=== PATIENT | female | born 1965 | race Caucasian/White ===

== ENCOUNTER 2018-02-22 19:04 | Emergency (ER) | payer MEDICAID, SELFPAY ==
[2018-02-22 19:09] VITALS: BP 146/76; PULSE 88; RESP 20; TEMP 37; O2SAT 99
--- NOTE | 2018-02-22 20:04 | DI.RAD_ITS ---
SYMPTOM/DIAGNOSIS: WRIST PAIN LEFT WRIST: Four views were obtained. There are mild degenerative changes of the carpus. No evidence of acute fracture. Carpal alignment appears within normal limits.
--- NOTE | 2018-02-22 21:12 | ED.GENADUL_ITS ---
Discharge Plan Disposition Patient Disposition: HOME Condition: Stable Discharge Details Chief Complaint: Orthopedic Clinical Impression: De Quervain's tenosynovitis, left Primary Care Provider: Yumiko Tavarez ED Provider: Vasu Juarez Home Meds and New Rx's Prescriptions: No Action folic acid 1 MG tablet 1 mg PO DAILY Qty: 90 RF: 3 cyanocobalamin (vitamin B-12) [Vitamin B-12] 1,000 MCG tablet 1,500 mcg PO DAILY RF: 0 ergocalciferol (vitamin D2) [Vitamin D2] 50,000 UNIT capsule 50,000 unit PO WEEKLY RF: 0 zolpidem [Ambien] 10 MG tablet 10 mg PO DAILY RF: 0 calcium carbonate 500 MG tablet 1,000 mg PO BID RF: 0 oxycodone-acetaminophen [Percocet] 1 EACH tablet 1 tab-cap PO Q6H PRN RF: 0 carbidopa-levodopa 1 EACH tablet,disintegrating 2 tab-cap PO TID RF: 0 denosumab [Prolia] 60 MG/1 ML syringe 60 mg SQ Q 6 MO RF: 0 naloxone [Narcan] 4 MG spray,non-aerosol 4 mg NS PRN Qty: 2 RF: 0 methocarbamol 750 mg Tablet 1 tab PO BID RF: 0 Discharge Instructions Instructions: De Quervain Disease (ED) Additional Instructions: Continue to use your pain medication as prescribed by your primary care provider, apply ice to the affected wrist, and wear wrist splint over the next 2 weeks. If not improving over the next 2 weeks please follow-up with your primary care provider for reassessment Referrals: Yumiko Tavarez [Primary Care Provider] - (As needed for reassessment) Discharge Data Discharge Date/Time-TO BE ENTERED AT DEPARTURE: 02/22/18 21:44 Medical Decision Making Patient presenting to the emergency department with chief complaint of left wrist pain. Patient denies any injury or trauma but states worsening wrist pain over the last 2 weeks. Patient does state it seems to be aggravated by activity and slightly improves with rest. Physical exam shows anatomical snuffbox tenderness and positive Lydia's test but no positive Tinel or Phalen's test. Concern for de Quervain's tenosynovitis but patient is very anxious and is requesting an x-ray which given no previous x-rays performed in the past not feel this is completely unreasonable but more concern for tendinopathy which was explained to patient. Review of radiological imaging shows no acute findings so patient was placed in a thumb spica splint and encouraged to continue to use her normally prescribed pain medication along with acetaminophen for any discomfort and if not improving over the next couple weeks to follow-up with her primary care provider for reassessment. After discussion of diagnosis and plan of care patient has no further needs, questions, or concerns and states clear understanding to return to the emergency department for any worsening symptoms. HPI General Mode of arrival: ambulatory . Date/Time Provider Initiated Documentation: 02/22/18 19:12 . Limitations to Documentation: no limitations . Information obtained by: patient and RN notes reviewed . History of Present Illness 53 year old F presents to the emergency department with the chief complaint of left wrist pain, described as moderate, with intensity rated at 7. Quality is described as aching, and is localized to the left and upper extremity. Patient reports no radiation. Patient started experiencing this week(s) (2) and it has been constant. No relieving factors improve symptom(s), Movement worsens symptoms . Patient notes no other symptoms.. Patient did receive the following treatments prior to arrival, none Related Data Home Medications Medication Instructions Recorded Confirmed folic acid 1 mg PO DAILY #90 tab-cap 09/01/15 cyanocobalamin (vitamin B-12) 1,500 mcg PO DAILY 11/28/16 09/09/17 [Vitamin B-12] ergocalciferol (vitamin D2) 50,000 unit PO WEEKLY 11/28/16 09/09/17 [Vitamin D2] zolpidem [Ambien] 10 mg PO DAILY tab-cap 11/28/16 09/09/17 calcium carbonate 1,000 mg PO BID 05/18/17 09/09/17 carbidopa-levodopa 2 tab-cap PO TID tab-cap 05/18/17 09/09/17 denosumab [Prolia] 60 mg SQ Q 6 MO 05/18/17 09/09/17 naloxone [Narcan] 4 mg NS PRN #2 spray 05/18/17 09/09/17 oxycodone-acetaminophen [Percocet] 1 tab-cap PO Q6H PRN tab-cap 05/18/17 09/09/17 methocarbamol 1 tab PO BID 02/22/18 02/22/18 Allergies Allergy/AdvReac Type Severity Reaction Status Date / Time Antihistamines - Alkylamine Allergy Intermediate antihistamines Unverified 02/22/18 19:12 unspecified procaine HCl [From Novocain] Allergy Intermediate Unverified 02/22/18 19:12 gabapentin AdvReac Intermediate drowsiness Unverified 02/22/18 19:12 mirtazapine AdvReac Unknown Heart Unverified 02/22/18 19:12 racing, jittery General Stated Complaint: Orthopedic MAYELA: 4 Review of Systems Constitutional Denies fever(s) Musculoskeletal Reports as per HPI, Denies numbness and Denies tingling Neurologic Denies numbness and Denies tingling PFSH Medical History Acne Anxiety Ataxia Chorea Chronic fatigue Chronic kidney disease, stage III (moderate) Chronic low back pain Depression Dysphagia Epilepsy Flank pain Folate deficiency anemia GERD (gastroesophageal reflux disease) Gallstones Hyperlipidemia Hypothyroidism (acquired) Insomnia Macrocytosis Movement disorder Nausea Neuropathic pain Osteoporosis Primary Parkinsonism Syncopal episodes Tobacco dependence Vitamin D deficiency Surgical History Cholecystectomy (03/08/16) Colonoscopy - MAC vertebroplasty Family History Father Personal history of malignant neoplasm Social History Smoking/Tobacco Use Status: Current every day Exam Const General: cooperative, healthy appearing and no acute distress Orientation: alert, awake and oriented x3 Resp Effort & Inspection: normal respiratory effort and able to speak in complete sentences Cardio Rate: regular rate Rhythm: regular rhythm Extrem Left upper extremity: full ROM, normal capillary refill, no joint enlargement, elbow/forearm Details: normal to inspection and wrist Details: tenderness Location: of the anatomic snuffbox, normal ROM, other (Positive Lydia), radial pulse present, Tinel's negative and Phalen's negative; no crepitus Course Vital Signs Temperature 37.0 C 02/22/18 19:09 Pulse 88 02/22/18 19:09 Respiratory Rate 20 02/22/18 19:09 Blood Pressure 146/76 H 02/22/18 19:09 Pulse Oximetry 99 02/22/18 19:09 Temperature 37.0 C 02/22/18 19:09 Temperature Source Temporal Artery Scan 02/22/18 19:09 Pulse 88 02/22/18 19:09 Respiratory Rate 20 02/22/18 19:09 Respiratory Effort Non-Labored 02/22/18 19:09 Blood Pressure 146/76 H 02/22/18 19:09 Blood Pressure Position Sitting 02/22/18 19:09 Pulse Oximetry 99 02/22/18 19:09 Oxygen Delivery Method Room Air 02/22/18 19:09 Oxygen Flow Rate 0 02/22/18 19:09 Pain Level 7 02/22/18 19:14
--- NOTE | 2018-02-22 21:18 | DI.VRAD_ITS ---
EXAM: XR Left Wrist Complete, 3 or more Views EXAM DATE/TIME: 02/22/2018 8:05 PM CLINICAL HISTORY: 53 years old, female; Pain; Wrist; Left; Patient HX: Non traumatic, snuffbox tenderness TECHNIQUE: XR Left wrist 3 or more views. COMPARISON: No relevant prior studies available. FINDINGS: Bones/joints: Mild osteopenia. Soft tissues: Normal. IMPRESSION: No fractures or dislocations. Dictated and Authenticated by: Scottie Velazquez MD. Ordering:VANIA Leone MD
== END 2018-02-22 21:44 | disposition home or self-care (01) ==
PROVIDERS: Emergency Provider Nurse Practitioner Family; PCP Family Medicine
DX: M65.4 Radial styloid tenosynovitis [de Quervain] (principal); G20 Parkinson's disease
CPT/HCPCS: 29125; 99283; 73110; L3807

== ENCOUNTER 2018-11-26 00:25 | Outpatient (CLI) | payer MEDICAID, SELFPAY ==
--- NOTE | 2018-11-26 16:18 | DI.MAMMO_ITS ---
EXAM: MG MAMMO SCREENING CLINICAL HISTORY: SCREENING, Z12.31. TECHNIQUE: Mammograms were interpreted according to the usual protocol including computer analysis w [employer] CAD system, tomosynthesis and C-view imaging. COMPARISON: No exams were available for comparison FINDINGS: The breast is composed of scattered fibroglandular densities. There is no dominant mass, there are n o suspicious calcifications and there has been no significant interval change when compared with prio r images. IMPRESSION: No evidence of malignancy, category 1, yearly screening mammography is recommended. BI-RADS category B. BI-RADS Cat 1 - Negative Breast Density - Category B - Scattered areas of fibroglandular density
--- NOTE | 2018-11-26 16:32 | DI.DEXA_ITS ---
EXAM: XR DEXA BONE DENSITY W/WO HOMERO INDICATION: OSTEOPOROSIS, M81.0. COMPARISON: LUMBAR SPINE AP, LAT from 07/23/2012 TECHNIQUE: 2D digital imaging was performed. FINDINGS: The scanogram is unremarkable save for post surgical changes involving the lower dorsal spine. For the left hip, a T-score of -2.3 and a Z-score -1.6 indicate osteoporosis and a high fracture risk . For the left forearm, a T-score of -1.6 and a Z-score of -0.7 would be consistent with osteopenia and an increased fracture risk. For the lumbar spine, a T-score -1.5 and a Z-score of -0.3 are consi stent with osteopenia and an increased fracture risk.
== END 2018-11-26 00:45 ==
PROVIDERS: PCP Family Medicine; Visit Provider Family Medicine
DX: Z12.31 Encounter for screening mammogram for malignant neoplasm of breast (principal); M81.0 Age-related osteoporosis without current pathological fracture; M85.88 Other specified disorders of bone density and structure, other site
CPT/HCPCS: 77063; 77067; 77080

== ENCOUNTER 2019-01-15 01:15 | Outpatient (CLI) | payer MEDICAID, SELFPAY | END 2019-01-15 01:35 | PROVIDERS: PCP Family Medicine; Visit Provider Psychiatry & Neurology Neurology | DX: Z13.6 Encounter for screening for cardiovascular disorders (principal); G20 Parkinson's disease; R25.1 Tremor, unspecified | CPT/HCPCS: 93005; 93010 ==

== ENCOUNTER 2019-01-16 16:54 | Outpatient (REF) | payer MEDICAID, SELFPAY ==
--- NOTE | 2019-01-16 14:00 | PAPFT_PTH ---
PATIENT: Miguelina Morales LOC: [facility] #:[id number] AGE/SX: 53/F ROOM: RE01/16/[address]: Yumiko Tavarez : 1965 BED: DIS: 01/16/2019 SPEC #: [id number] RECD: 01/17/19 10:55 STATUS: SCOOBY REQ #: [id number] BLAIR: 01/16/19 14:[address]: Yumiko Tavarez DEPT: [facility] Cytology RECD BY: Carmen Victor Tissues: 1 - CX/ENDOCX FOR PAP SMEARS Procedures: PAP THIN PREP/UVM Screening HPV DNA PROBE Comments: [id number]
== END 2019-01-16 17:14 ==
LOC: NCHCN 16:54
PROVIDERS: PCP Family Medicine; Visit Provider Family Medicine
DX: Z12.4 Encounter for screening for malignant neoplasm of cervix (principal); Z11.51 Encounter for screening for human papillomavirus (HPV)
CPT/HCPCS: 88142; 87624

== ENCOUNTER 2019-02-15 01:44 | Outpatient (CLI) | payer MEDICAID, SELFPAY | END 2019-02-15 02:04 | PROVIDERS: PCP Family Medicine; Visit Provider Family Medicine | DX: Z00.00 Encounter for general adult medical examination without abnormal findings (principal); E78.5 Hyperlipidemia, unspecified; N18.3 Chronic kidney disease, stage 3 (moderate) | CPT/HCPCS: 36415; 80053; 80061; 85027 ==

== ENCOUNTER 2019-11-04 20:47 | Outpatient (REF) | payer OTHER, SELFPAY ==
[2019-11-07 18:08] LABS: Patient Race White; SARS-CoV-2 RNA Undetected (Undetected); SARS-CoV-2 Specimen Source Nasopharynx
== END 2019-11-04 21:07 ==
LOC: NCHCN 20:47
PROVIDERS: PCP Family Medicine; Visit Provider Nurse Practitioner Family
DX: R05 Cough (principal)
CPT/HCPCS: U0003

== ENCOUNTER 2020-01-21 12:56 | Outpatient (REF) | payer OTHER, SELFPAY ==
--- NOTE | 2020-01-21 11:45 | PAPFT_PTH ---
PATIENT: Miguelina Morales LOC: [facility]#:[id number] AGE/SX: 54/F ROOM: RE01/21/[address]: Yumiko Tavarez : 1965 BED: DIS: 01/21/2020 SPEC #: [id number] RECD: 01/22/20 13:15 STATUS: SCOOBY REPrecious #: [id number] BLAIR: 01/21/20 11:[address]: Yumiko Tavarez DEPT: [facility] Cytology RECD BY: Terri Garcias Tissues: 1 - CX/ENDOCX FOR PAP SMEARS Procedures: PAP THIN PREP/UVM Screening HPV DNA PROBE Comments: [id number] ([id number] [facility] [place])
== END 2020-01-21 13:16 ==
LOC: NCHCN 12:56
PROVIDERS: PCP Family Medicine; Visit Provider Family Medicine
DX: Z12.4 Encounter for screening for malignant neoplasm of cervix (principal); R87.610 Atypical squamous cells of undetermined significance on cytologic smear of cervix (ASC-US); R87.810 Cervical high risk human papillomavirus (HPV) DNA test positive
CPT/HCPCS: 88142; 87624

== ENCOUNTER 2020-02-26 11:19 | Outpatient (REF) | payer OTHER, SELFPAY ==
[2020-02-26 16:17] LABS: HCT 41.6 % (36.0-46.0); HGB 13.3 g/dL (11.2-15.7); MCH 31.7 pg (27.0-33.0); MCV 99.3 fL (80-95); MPV 12.1 fL (8.0-11.0); Platelet Count 215 10^3/uL (130-400); RBC 4.19 10^6/uL (3.93-5.22); RDW 12.1 % (11.7-14.6); WBC 6.32 10^3/uL (4.4-10.8)
[2020-02-26 16:36] LABS: ALT 20 U/L (14-59); AST 20 U/L (15-37); Albumin 3.7 g/dL (3.4-5.0); Alkaline Phosphatase 159 U/L (46-116); BUN 17 mg/dL (7-18); Bilirubin, Total 0.2 mg/dL (0.2-1.0); CREATININE 1.59 mg/dL (0.55-1.02); Calcium 9.1 mg/dL (8.5-10.1); Calculated LDL 160 mg/dL (<100); Chloride 104 mmol/L (98-107); Cholesterol 236 mg/dL (<200); Estimated GFR 33.46 (mL/min/1.73m2); Glucose 96 mg/dL (74-106); HDL Cholesterol 40 mg/dL (40-60); Potassium 4.6 mmol/L (3.5-5.1); Sodium 141 mmol/L (136-145); TSH (W/Ref FT4) 1.76 uIU/mL (0.36-3.74); Total Protein 7.2 g/dL (6.4-8.2); Triglyceride 182 mg/dL (<150)
== END 2020-02-26 11:39 ==
LOC: NCHCN 11:19
PROVIDERS: PCP Family Medicine; Visit Provider Family Medicine
DX: Z00.00 Encounter for general adult medical examination without abnormal findings (principal); E03.9 Hypothyroidism, unspecified; E78.5 Hyperlipidemia, unspecified; N18.30 Chronic kidney disease, stage 3 unspecified
CPT/HCPCS: 80053; 80061; 85027; 84443

== ENCOUNTER 2020-03-12 16:54 | Outpatient (REF) | payer OTHER, SELFPAY ==
--- NOTE | 2020-03-12 15:35 | ENDO_PTH ---
PATIENT: Miguelina Morales LOC: [facility] U#:[id number] AGE/SX: 55/F ROOM: RE03/12/[address]: Yoli Arguelles : 1965 BED: DIS: 03/12/2020 SPEC #: [id number] RECD: 03/12/20 17:31 STATUS: SCOOBY REPrecious #: [id number] BLAIR: 03/12/20 15:[address]: Yoli Arguelles DEPT: Surgical Specimen RECD BY: Terri Garcias ENTERED: 03/12/20 17:32 SP TYPE: Endo OTHR DR: Yumiko Tavarez Tissues: 1 - ENDOCERVICAL BX/CURRETTE 2 - CERVICAL BIOPSY Procedures: GROSS AND MICRO LEVEL 4 Comments: [id number]
== END 2020-03-12 17:14 ==
LOC: LBN 16:54
PROVIDERS: PCP Family Medicine; Visit Provider Obstetrics & Gynecology Gynecology
DX: R87.610 Atypical squamous cells of undetermined significance on cytologic smear of cervix (ASC-US) (principal); N72 Inflammatory disease of cervix uteri; Z87.42 Personal history of other diseases of the female genital tract
CPT/HCPCS: 88305

== ENCOUNTER 2021-02-28 17:09 | Outpatient (REF) | payer OTHER, SELFPAY ==
--- NOTE | 2021-02-28 16:30 | PAPFT_PTH ---
PATIENT: Miguelina Morales LOC: [facility] #:[id number] AGE/SX: 56/F ROOM: RE02/28/[address]: Yumiko Tavarez : 1965 BED: DIS: 02/28/2021 SPEC #: [id number] RECD: 03/01/21 12:51 STATUS: SCOOBY REPrecious #: [id number] BLAIR: 02/28/21 16:[address]: Yumiko Tavarez DEPT: [facility] Cytology RECD BY: Terri Garcias Tissues: 1 - CX/ENDOCX FOR PAP SMEARS Procedures: PAP THIN PREP/UVM Screening HPV DNA PROBE Comments: [id number]
== END 2021-02-28 17:10 | disposition home or self-care (01) ==
LOC: NCHCN 17:09
PROVIDERS: PCP Family Medicine; Visit Provider Family Medicine
DX: Z12.4 Encounter for screening for malignant neoplasm of cervix (principal); Z11.51 Encounter for screening for human papillomavirus (HPV); R87.810 Cervical high risk human papillomavirus (HPV) DNA test positive
CPT/HCPCS: 88142; 87624

== ENCOUNTER 2021-06-30 01:48 | Outpatient (CLI) | payer OTHER, SELFPAY ==
--- NOTE | 2021-06-30 16:05 | DI.MAMMO_ITS ---
Exam(s) MAMMO SCREENING EXAM: MAMMO SCREENING CLINICAL HISTORY: SCREENING, Z12.31 TECHNIQUE: Mammograms were interpreted according to the usual protocol including computer analysis w [employer] CAD system, tomosynthesis and C-view imaging. COMPARISON: FINDINGS: Breasts are of moderate density with somewhat asymmetric distribution of fibroglandular tissue in bot h breasts. No dominant mass or clumped microcalcification is seen. Examination is compared prior ex aminations including November 2018 and there is increased prominence of asymmetric density with a va guely nodular appearance in the upper outer quadrant left breast seen on both CC and MLO views. Krzysztof tional mammographic views of the left breast requested for further evaluation. No other significant change seen. IMPRESSION: Additional mammographic views of the left breast requested as described above. Breast ultrasound may be indicated as well depending on the results of the additional mammographic views. BI-RADS Category 0 - Assessment Incomplete: Need additional imaging evaluation Breast Density - Category B - Scattered areas of fibroglandular density
== END 2021-06-30 02:08 ==
PROVIDERS: PCP Family Medicine; Visit Provider Family Medicine
DX: Z12.31 Encounter for screening mammogram for malignant neoplasm of breast (principal); R92.8 Other abnormal and inconclusive findings on diagnostic imaging of breast
CPT/HCPCS: 77063; 77067

== ENCOUNTER → 2021-07-15 00:39 | Outpatient (CLI) | payer OTHER, SELFPAY ==
--- NOTE | 2021-07-15 | DI.MAMMO_ITS ---
Exam(s) MAMMO SCREEN CALL BACK UNI US BREAST LT COMPLETE EXAM: MAMMO SCREEN CALL BACK UNI -LEFT AND COMPLETE LEFT BREAST ULTRASOUND CLINICAL HISTORY: ASYMMETRIC DENSITY LEFT BREAST. TECHNIQUE: Unilateral spot mammographic images obtained with 3D tomosynthesisand utilizing computer aided detection (CAD). . Complete LEFT breast Ultrasound was also performed, including all 4 quadrants, the retroareolar regio n, and the ipsilateral axilla. COMPARISON: Prior mammograms were reviewed. This additional imaging was performed due to findings described on the recent screening mammogram of 06/30/2021. FINDINGS: DIAGNOSTIC LEFT BREAST MAMMOGRAM: Additional mammographic views performed todayrender this area less concerning. COMPLETE LEFT BREAST ULTRASOUND: Ultrasound performed today reveals no evidence of solid or significant cystic lesions in all 4 quadra nts. Area described on the recent mammogram towards the upper outer quadrant reveals no significant focal ultrasound findings. Also no findings in the immediate retroareolar region. No adenopathy in the left axilla. IMPRESSION: 1. No radiographic/mammographic evidence of malignancy in left breast. 2. Negative complete left breast ultrasound. Appropriate follow-up is repeat left breast MAMMOGRAM in 6 months. The patient was informed of these findings and recommendations prior to leaving the department today. BI-RADS Category 3 - 6 month - Probably Benign Finding: Recommend follow-up mammography in 6 months Breast Density - Category B - Scattered areas of fibroglandular density Breast density Category C or D implies that the patient has dense breast tissue. Dense breast tissue can make it harder to find cancer on a mammogram. Dense breast tissue is also associated with an incr eased risk of breast cancer. This information about the result of the mammogram report was provided to the patient to raise their awareness. Use this report when you speak with the patient about their risks for breast cancer, which includes their family history. At that time, you may recommend additional screening tests (Ultrasoun d or MRI) as these tests may add significant information. A negative radiographic report should not delay biopsy if a dominant or clinically suspicious mass is present. Up to ten percent of cancers are not identified on mammography. A negative report may reinforce clinical impression. Adenosis and dense breasts may obscure an underlying neoplasm. False positive reports average 6 to 10%. Patient will receive a letter notifying them of these results.
== END ==
PROVIDERS: PCP Family Medicine; Visit Provider Family Medicine
DX: Z12.31 Encounter for screening mammogram for malignant neoplasm of breast (principal); R92.8 Other abnormal and inconclusive findings on diagnostic imaging of breast; N64.59 Other signs and symptoms in breast
CPT/HCPCS: 76642; 77063; 77067

== ENCOUNTER → 2022-01-20 00:08 | Outpatient (CLI) | payer OTHER, SELFPAY ==
--- NOTE | 2022-01-20 | DI.MAMMO_ITS ---
Exam(s) MAMMO DIAGNOSTIC UNI EXAM: MAMMO DIAGNOSTIC UNI -LEFT CLINICAL HISTORY: DIAGNOSTIC, 6 MO F/U, R92.8. TECHNIQUE: Unilateral LEFT BREAST CC AND MLO mammographic images were obtained with 3D tomosynthesis technique and utilizing computer aided detection (CAD). COMPARISON: Prior mammograms were reviewed, the most recent being July 2021. Ultrasound at that time was also reviewed.. FINDINGS: No new masses nor malignant-appearing microcalcification groups in the left breast. Previously descr ibed findings appear benign. A laterally located skin mole is noted (verified by myself on the patie nt today). No new architectural distortion or skin thickening-traction IMPRESSION: No radiographic evidence of malignancy in the left breast Appropriate follow-up is to keep this patient on her yearly mammogram schedule, this implying the nex t bilateral mammogram would be in June or July 2022.. The patient was informed of the findings and follow-up recommendations by myself prior to leaving the department today. BI-RADS Category 2 - Benign Findings Breast Density - Category B - Scattered areas of fibroglandular density Breast density Category C or D implies that the patient has dense breast tissue. Dense breast tissue can make it harder to find cancer on a mammogram. Dense breast tissue is also associated with an incr eased risk of breast cancer. This information about the result of the mammogram report was provided to the patient to raise their awareness. Use this report when you speak with the patient about their risks for breast cancer, which includes their family history. At that time, you may recommend additional screening tests (Ultrasoun d or MRI) as these tests may add significant information. A negative radiographic report should not delay biopsy if a dominant or clinically suspicious mass is present. Up to ten percent of cancers are not identified on mammography. A negative report may reinforce clinical impression. Adenosis and dense breasts may obscure an underlying neoplasm. False positive reports average 6 to 10%. Patient will receive a letter notifying them of these results.
--- OUTSIDE RECORDS SUMMARY | 2022-01-20 00:10 | XMS_ITS | Clinical Summary ---
:1965 Author Organization [facility] [place] [address] Care Team Providers Name Role Phone Yumiko Tavarez MD Primary Care Provider Allergies Active Allergy Reactions Severity Noted Date Comments Gabapentin 11/03/2016 Histamine 03/17/2014 Mirtazapine Other (See Comments) Medium 11/20/2018 Patient reports heart races and jittery fee ling. Visible quivering extre mities. Procaine 11/03/2016 Excessive radha ng Medications Medication Sig Dispensed Refills Start Date End Date Status cyanocobalamin 1,000 mcg Take 1,000 mcg 0 Active Tablet by mouth daily. calcium carbonate (TUMS) Take 2 tablets 0 Active 200 mg calcium (500 mg) by mouth 2 times Tablet, Chewable daily. cholecalciferol, Vitamin Take 50,000 0 Active D3, 50,000 unit Capsule Units by mouth once a week. zolpidem (AMBIEN) 10 mg Take 10 mg by 0 Active Tablet mouth nightly. oxyCODONE-acetaminophen Take 1 tablet by 0 Active (PERCOCET) 10-325 mg mouth every 6 Tablet hours as needed for Pain. folic acid (FOLVITE) 1 Take 1 mg by 0 Active mg Tablet mouth daily. omeprazole (PRILOSEC) 20 Take 20 mg by 0 07/24/2017 Active mg Capsule, Delayed mouth as needed. Release(E.C.) pregabalin (LYRICA) 200 Take 200 mg by 0 Active mg Capsule mouth daily. naloxone (NARCAN) 4 1 spray by Nasal 0 Active mg/actuation Morton, route as needed. Non-Aerosol carbidopa-levodopa Take 1 tablet by 90 tablet 11 01/20/2020 Active (Sinemet) 25-100 mg mouth 3 times Tablet daily. Additional Information Patient not taking. Reported on 02/02/2020 Active Problems Problem Noted Date Primary parkinsonism 12/18/2016 Chorea 11/03/2016 Chronic pain syndrome 03/17/2014 Family History Medical History Relation Comments Mental Illness Father Tremor Father Alcohol Use Disorder Mother Cancer Mother Depression Mother Relation Status Comments Father Mother Social History Tobacco Use Types Packs/Day Years Used Date Smoking Tobacco: Every Day Cigarettes 1 25 Smokeless Tobacco: Never Alcohol Use Standard Drinks/Week Comments Yes 0 (1 standard drink = 0.6 oz pure alcoho l) rare/seldom Sex Assigned at Date Recorded Not on file Last Filed Vital Signs Vital Sign Reading Time Taken Comments Blood Pressure 127/96 01/20/2020 10:01 AM EST Pulse 79 01/20/2020 10:01 AM EST Temperature - - Respiratory Rate - - Oxygen Saturation 99% 03/17/2014 11:24 AM EST Inhaled Oxygen Concentration - - Weight 64.4 kg (142 lb) 01/20/2020 10:01 AM EST reporte d Height 149.9 cm (4' 11) 01/20/2020 10:01 AM EST report ed Body Mass Index 28.68 01/20/2020 10:01 AM EST Plan of Treatment Health Maintenance Due Date Last Done Comments Hepatitis B vaccine (0-59 yrs) (1 of 3 - 3-dose 1965 series) Covid-19 Vaccine (#1) 1965 Pneumococcal Vaccine: At-Risk 5-64yrs (1 - PCV) 1969 HIV screen 1981 Hepatitis C Screening 1981 Lipid Screening 1981 Tdap adult 1982 Tetanus vaccine 1982 HPV test 1993 PAP Smear 1993 Breast Cancer Share Decision Needed 2003 Colonoscopy 02/12/2008 Breast Cancer screening 2013 Zoster vaccine (1 of 2) 2013 Advance Directive 2018 Diabetes Screening (HgbA1C or Glucose) 11/21/2019 7 Influenza (Flu) vaccine (1 of 1 - Influenza standard 11/03/2021 series) Insurance Payer Benefit Plan / Subscriber ID Effective Dates Phone Addre ss Type Group [employer] [place] [place] [id number] 2018-Bekah [phone] [id number] [facility] [address] [facility] [id number] Care Teams Manager Analysis Relationship Specialty Start Date End Date Yumiko Tavarez MD PCP - General Family Medicine 07/07/16 [address] [place], [place] [id number]
--- OUTSIDE RECORDS SUMMARY | 2022-01-20 00:10 | XMS_ITS | Encounter Summary ---
:1965 Author Organization [facility] [place] [address] Care Team Providers Name Role Phone Yumiko Tavarez MD Primary Care Provider Reason for Visit Reason Onset Date Comments Medication Refill 01/21/2019 Encounter Details Date Type Department Care Team Description 01/21/2019 Refill Neurology at [facility] Razia Mims MD [facility] [place] [address] [place] [id number] [phone] (Wo rk) Social History Tobacco Use Types Packs/Day Years Used Date Smoking Tobacco: Every Day Cigarettes 1 25 Smokeless Tobacco: Never Alcohol Use Standard Drinks/Week Comments Yes 0 (1 standard drink = 0.6 oz pure alcoho l) Very rare Sex Assigned at Date Recorded Not on file documented as of this encounter Plan of Treatment Not on filedocumented as of this encounter Visit Diagnoses Not on filedocumented in this encounter Care Teams School Bus Attendant Relationship Specialty Start Date End Date Yumiko Tavarez MD PCP - General Family Medicine 07/07/16 [address] [place] [address] documented as of this encounter
--- OUTSIDE RECORDS SUMMARY | 2022-01-20 00:10 | XMS_ITS | Encounter Summary ---
:1965 Author Organization [facility] [place] [address] Care Team Providers Name Role Phone Yumiko Tavarez MD Primary Care Provider Reason for Visit Reason Onset Date Comments Medication Refill 01/22/2017 Encounter Details Date Type Department Care Team Description 01/22/2017 Refill Neurology at [facility] Razia Mims MD [facility] [place] [address] [place] [address] [phone] (Wo rk) Social History Tobacco Use Types [...] on filedocumented in this encounter Care Teams Vaccine Manager Relationship Specialty Start Date End Date Yumiko Tavarez MD PCP - General Family Medicine 07/07/16 [address] [place] [address] documented as of this encounter
--- OUTSIDE RECORDS SUMMARY | 2022-01-20 00:10 | XMS_ITS | Encounter Summary ---
:1965 Author Organization [facility] [place] [address] Care Team Providers Name Role Phone Yumiko Tavarez MD Primary Care Provider Reason for Visit Reason Onset Date Comments Prior Authorization 01/22/2019 XENAZINE 12.5 MG #60 APPROVED 01/29/19-05/01/19 Encounter Details Date Type Department Care Team Description 01/22/2019 [place] [facility] [place] Prior Authorization [facility] MD [place] (XENAZINE 12.[address] [facility] [place] [address] 01/29/19-05/01/19) [phone] [place], [place] [address] Social History Tobacco Use Types Packs/Day Years Used Date Smoking Tobacco: Every Day Cigarettes 1 25 Smokeless Tobacco: Never Alcohol Use Standard Drinks/Week Comments Yes 0 (1 standard drink = 0.6 oz pure alcoho l) Very rare Sex Assigned at Date Recorded Not on file documented as of this encounter Miscellaneous Notes Telephone Encounter - Antonietta Yoon - 02/03/2019 11:36 AM EST Images from the original note were not included. Telephone Encounter - Antonietta Yoon - 01/29/2019 10:50 AM EST Images from the original note were not included. FORM FILLED OUT AND FAXED TO [employer]. [phone] ~abnormal involuntary movements. 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 HD genetic test was negative. On follow up 1 month later she appeared more parkinsonian and Valentin scan was abnormal suggestive of PD. She had nausea on the sinemet and has been off of it since summer 2017. Amantadine did not work for her. She fainted with requip. Artane titrated up to 2mg TID tired last visit was not helpful. Her symptoms are still bothersome with right upper extremity rest tremor and what still looks like chorea on holding postures. She especially has difficulty with movements in her feet. The leg movements are worse when standing. Her father was also in a psychiatric hospital for a while. He would also publicly talk to people whowere not there as early as his 50s. She says her father had tremors and always moved his mouth (he had false teeth). Telephone Encounter - Antonietta Yoon - 01/29/2019 10:48 AM EST Images from the original note were not included. Telephone Encounter - Antonietta Yoon - 01/29/2019 10:45 AM EST Images from the original note were not included. Telephone Encounter - Whit Juares - 01/28/2019 2:03 PM EST Pt called to check on status. Telephone Encounter - Naye Red - 01/22/2019 4:56 PM EST Clinical [place] Call Caller: Miguelina If not Pt / Relation to pt: Call back number: [phone] Extension for call back number if appropriate: Medication requiring PA: Tetrabenazine [facility] Benefits/Coverage Company: [facility] Benefits/Coverage ID #: [id number] Pharmacy Benefits/Coverage Company Pharmacy used by patient: [facility] location: [facility] BIN#: PCN# : Disposition of Call: documented in this encounter Plan of Treatment Not on filedocumented as of this encounter Visit Diagnoses Not on filedocumented in this encounter Care Teams Hr Internship Relationship Specialty Start Date End Date Yumiko Tavarez MD PCP - General Family Medicine 07/07/16 [address] [place] [address] documented as of this encounter
--- OUTSIDE RECORDS SUMMARY | 2022-01-20 00:10 | XMS_ITS | Encounter Summary ---
:1965 Author Organization [facility] [place] [address] Care Team Providers Name Role Phone Yumiko Tavarez MD Primary Care Provider Reason for Referral Diagnostic Test (Routine) - Closed Specialty Diagnoses / Procedures Referred By Contact Refer red To Contact Radiology Diagnoses Razia Hutchison MD [facility] Rad Mri Procedures MRI Brain wo Contrast [place], [place] [id number] [place] [phone] Referral ID Status Reason Start Date Expiration Date Visits V isits Requested Authorized [id number] Closed Specialty 11/07/2016 02/05/2017 1 1 Service Requested Reason for Visit Diagnostic Test (Routine) - Closed Specialty Diagnoses / Procedures Referred By Contact Refer red To Contact Radiology Diagnoses Razia Hutchison MD [facility] Rad Mri Procedures [place] [address] [place] [address] Referral ID Status Reason Start Date Expiration Date Visits V isits Requested Authorized [id number] Closed Specialty 11/07/2016 02/05/2017 1 1 Service Requested Encounter Details Date Type Department Care Team Description 11/20/2016 Hospital Encounter MRI at [facility] [place] Razia Mims Chorea [facility] [place] [address] [place], [place] [address] (Wo rk) Social History Tobacco Use Types Packs/Day Years Used Date Smoking Tobacco: Every Day Cigarettes 1 25 Smokeless Tobacco: Never Alcohol Use Standard Drinks/Week Comments Yes 0 (1 standard drink = 0.6 oz pure alcoho l) Very rare Sex Assigned at Date Recorded Not on file documented as of this encounter Medications at Time of Discharge Medication Sig Dispensed Refills Start Date End Date cyanocobalamin 1,000 mcg Take 1,000 mcg by 0 Tablet mouth daily. calcium carbonate (TUMS) Take 2 tablets by 0 200 mg calcium (500 mg) mouth 2 times Tablet, Chewable daily. cholecalciferol, Vitamin Take 50,000 Units 0 D3, 50,000 unit Capsule by mouth once a week. zolpidem (AMBIEN) 10 mg Take 10 mg by 0 Tablet mouth nightly. oxyCODONE-acetaminophen Take 1 tablet by 0 (PERCOCET) 10-325 mg Tablet mouth every 6 hours as needed for Pain. cyclobenzaprine (FLEXERIL) Take 10 mg by 0 12/18/2016 10 mg Tablet mouth 3 times daily as needed for Muscle spasms. documented as of this encounter Plan of Treatment Not on filedocumented as of this encounter Procedures Procedure Name Priority Date/Time Associated Diagnosis Comme nts MRI BRAIN WO Routine 11/20/2016 2:36 PM Chorea Results f or this CONTRAST EDT procedure are i n the results section. documented in this encounter Results MRI Brain wo Contrast (11/20/2016 2:36 PM EDT) Anatomical Region Laterality Modality Head Magnetic Resonance Specimen (Source) Anatomical Location Collection Method / Collectio n Time Received Time / Laterality Volume Impressions 11/20/2016 3:03 PM EDT Normal appearance of the basal ganglia. No significant change compared to the prior study. Narrative 11/20/2016 3:03 PM EDT EXAMINATION: MRI BRAIN WO CONTRAST CLINICAL HISTORY: chorea progressive ove r past year TECHNIQUE: MR of the brain performed wit hout the use of intravenous contrast. COMPARISON: 06/15/2003 FINDINGS: The ventricles are slightly la rger than they were in 2003, but remain normal for age. The basal ganglia are no rmal in appearance with normal bilateral caudate. There are a few very small area s of T2 signal alteration in the subcortical white matter, a common nonsp ecific finding. Diffusion images are normal. There is no mass effect or shift . No focal, or geographic pattern of volume loss identified. The major intrac ranial flow voids are normal. 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 Procedure Note Prashant Blackwood MD - 11/20/2016Format ting of this note might be different from the original. EXAMINATION: MRI BRAIN WO CONTRAST CLINICAL HISTORY: chorea progressive ove r past year TECHNIQUE: MR of the brain performed wit hout the use of intravenous contrast. COMPARISON: 06/15/2003 FINDINGS: The ventricles are slightly la rger than they were in 2004, but remain normal for age. The basal ganglia are no rmal in appearance with normal bilateral caudate. There are a few very small area s of T2 signal alteration in the subcortical white matter, a common nonsp ecific finding. Diffusion images are normal. There is no mass effect or shift . No focal, or geographic pattern of volume loss identified. The major intrac ranial flow voids are normal. 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 IMPRESSION Normal appearance of the basal ganglia. No significant change compared to the prior study. Razia Mims MD IMG MRI ORDERABLES documented in this encounter Visit Diagnoses Diagnosis Chorea Other choreas documented in this encounter Care Teams Dining Room Captain Relationship Specialty Start Date End Date Yumiko Tavarez MD PCP - General Family Medicine 07/07/16 [address] [place] [address] documented as of this encounter
--- OUTSIDE RECORDS SUMMARY | 2022-01-20 00:10 | XMS_ITS | Encounter Summary ---
:1965 [place] [address] Care Team Providers Name Role Phone Yumiko Tavarez MD Primary Care Provider Encounter Details Date Type Department Care Team Description 01/11/2017 Telephone Neurology at [facility] [place] Razia Mims MD [facility] [place] [address] [place] [id number] [phone] (Wo rk) Social History Tobacco Use Types Packs/Day Years Used Date Smoking Tobacco: Every Day Cigarettes 1 25 Smokeless Tobacco: Never Alcohol Use Standard Drinks/Week Comments Yes 0 (1 standard drink = 0.6 oz pure alcoho l) Very rare Sex Assigned at Date Recorded Not on file documented as of this encounter Miscellaneous Notes Telephone Encounter - Razia Mims MD - 01/11/2017 11:16 AM EST I spoke to Miguelina on the phone regarding the results of her Valentin scan. Her scan was suggestive of parkinsonism. She reports that the sinemet 1 tab TID is not helping her symptoms. I instructed her to increase to 1.5 tabs TID. She had an appointment scheduled for Sunday but I would like to give the higherdose of sinemet a longer trial and will have her appointment moved to February. Razia Mims MD [facility] Neurology-Movement Disorders documented in this encounter Plan of Treatment Not on filedocumented as of this encounter Visit Diagnoses Not on filedocumented in this encounter Care Teams Smoking Pipe Mounter Relationship Specialty Start Date End Date Yumiko Tavarez MD PCP - General Family Medicine 07/07/16 [address] [place] [address] documented as of this encounter
--- OUTSIDE RECORDS SUMMARY | 2022-01-20 00:10 | XMS_ITS | Encounter Summary ---
:1965 Author Organization [facility] [place] [address] Care Team Providers Name Role Phone Yumiko Tavarez MD Primary Care Provider Reason for Visit Diagnostic Test (Routine) - Closed Specialty Diagnoses / Procedures Referred By Contact Refer red To Contact Radiology Diagnoses Tremors of nervous system Razia Mims MD [facility] Rad Nuclear Med Procedures NM IRMA Scan [facility] [place] [address] [place] [address] Fax: Referral ID Status Reason Start Date Expiration Date Visits V isits Requested Authorized [id number] Closed Specialty 12/18/2016 12/18/2017 3 3 Service Requested Encounter Details Date Type Department Care Team Description 01/10/2017 Hospital Encounter Nuclear Medicine at Brandi Mims Mary Hitchcock MD [facility] [place] [address] [place] [address] [phone] (Wo rk) Social History Tobacco Use Types [...] Sig Dispensed Refills Start Date End Date folic acid (FOLVITE) 1 mg Take 1 mg by mouth 0 Tablet daily. cyanocobalamin 1,000 mcg Take 1,000 mcg by 0 Tablet mouth daily. calcium carbonate (TUMS) Take 2 tablets by 0 200 mg calcium (500 mg) mouth 2 times Tablet, Chewable daily. cholecalciferol, Vitamin Take 50,000 Units 0 D3, 50,000 unit Capsule by mouth once a week. zolpidem (AMBIEN) 10 mg Take 10 mg by mouth 0 Tablet nightly. oxyCODONE-acetaminophen Take 1 tablet by 0 (PERCOCET) 10-325 mg mouth every 6 hours Tablet as needed for Pain. MAGNESIUM PHOSPHATE, BULK, Take 250 mg by 0 08/06/2017 MISC mouth daily. tiZANidine (ZANAFLEX) 4 mg Take 4 mg by mouth 0 08/06/2017 Tablet 3 times daily. carbidopa-levodopa Take 1 tablet by 90 tablet 3 12/18/2016 01/22/2017 (SINEMET) 25-100 mg Tablet mouth 3 times daily. documented as of this encounter Plan of Treatment Not on filedocumented as of this encounter Procedures Procedure Name Priority Date/Time Associated Comments Diagnosis NM BRAIN IMAGING FOR Routine 01/10/2017 3:39 PM Tremors of ner vous Results for this PARKINSONS DISEASE EST system procedure are in the results section. documented in this encounter Visit Diagnoses Not on filedocumented in this encounter Administered Medications Inactive Administered Medications - up to 3 most recent administrations Medication Order MAR Action Action Date Dose Rate Site ioflupane (I-123) (DATSCAN) Given 01/10/2017 11:00 AM EST 5.3 mC i injection 5.3 mCi 5.3 mCi, Intravenous, ONCE PRN, 1 dose, Starting on Sun01/10/17 at 1100, Until Sun01/10/17 at 1100, Per Protocol, Routine documented in this encounter Care Teams Energy Technician Relationship Specialty Start Date End Date Yumiko Tavarez MD PCP - General Family Medicine 07/07/16 [address] [place] [address] documented as of this encounter
--- OUTSIDE RECORDS SUMMARY | 2022-01-20 00:10 | XMS_ITS | Encounter Summary ---
:1965 Author Organization [facility] [place] [address] Care Team Providers Name Role Phone Yumiko Tavarez MD Primary Care Provider Encounter Details Date Type Department Care Team Description 10/08/2018 [place] [facility] [place] [facility] [address] [place] [address] [phone] (Wo rk) Social History Tobacco Use Types Packs/Day Years Used Date Smoking Tobacco: Every Day Cigarettes 1 25 Smokeless Tobacco: Never Alcohol Use Standard Drinks/Week Comments Yes 0 (1 standard drink = 0.6 oz pure alcoho l) Very rare Sex Assigned at Date Recorded Not on file documented as of this encounter Miscellaneous Notes Telephone Encounter - Carline Don RN - 10/11/2018 11:21 AM EDT Razia Mims MD to Me ?? 3:18 PM Parkinson's due to the abnormal Valentin scan. Yes her symptoms are unusual but ultimately most of her features fit with PD. Spoke with patient and relayed information as noted. She verbalized understanding of this. Telephone Encounter - Carline Don RN - 10/10/2018 3:43 PM EDT Message left requesting return call. Telephone Encounter - Carline Don RN - 10/10/2018 2:00 PM EDT Razia Mims MD to Me ?? 1:16 PM I think we should try to increase the mirapex a little further. Up to 0.75mg TID for a week then up to 1mg TID. I did show the video to two other people who both suggested amantadine which was what we tried first with no benefit. We could always retry that if she was interested. Otherwise I am going to adjust the mirapex prescription. Called patient and relayed recommendations as noted. Patient will increase the pramipexole as recommended. She has questions about what the other providers thought the cause of her symptoms was. Telephone Encounter - Carline Don RN - 10/08/2018 3:49 PM EDT Last Appointment: 09/12/18 Next Appointment: 01/14/19 Medication: pramipexole 0.25 mg Directions: 2 tabs 3 times daily Reason for Call: Medication Update Patient report: Results: no benefit at all Side Effects:none noted Other Concerns: Any Additional Information to Relay: Patient has been taking 0.5 mg pramipexole 3 times daily for about 2 weeks and she has not noticed any decrease in her movements at all. She wonders if Dr Mims had been able to show the video of her movements to the other providers to get their opinions. Plan/Intervention/Follow Up - Report forwarded to Dr Mims for review and comment. Pt/caller aware they will be called back with input when available and to call back in the interim if additional questions or change arise before they hear back from this office. Pt/caller agreeable to this plan. documented in this encounter Plan of Treatment Not on filedocumented as of this encounter Visit Diagnoses Not on filedocumented in this encounter Care Teams Drop Wire Operator Relationship Specialty Start Date End Date Yumiko Tavarez MD PCP - General Family Medicine 07/07/16 [address] [place] [address] documented as of this encounter
--- OUTSIDE RECORDS SUMMARY | 2022-01-20 00:10 | XMS_ITS | Encounter Summary ---
:1965 Author Organization [facility] [place] [address] Care Team Providers Name Role Phone Yumiko Tavarez MD Primary Care Provider Reason for Visit Reason Onset Date Comments Medication Refill 03/03/2019 Encounter Details Date Type Department Care Team Description 03/03/2019 Refill Neurology at [facility] [place] [place] Razia Mims MD [facility] [place] [address] [place] [address] [phone] (Wo rk) Social History Tobacco Use Types [...] on filedocumented in this encounter Care Teams Marketing Specialist Relationship Specialty Start Date End Date Yumiko Tavarez MD PCP - General Family Medicine 07/07/16 [address] [place] [address] documented as of this encounter
--- OUTSIDE RECORDS SUMMARY | 2022-01-20 00:10 | XMS_ITS | Encounter Summary ---
:1965 Author Organization [place] [address] Care Team Providers Name Role Phone Yumiko Tavarez MD Primary Care Provider Encounter Details Date Type Department Care Team Description 10/10/2018 Orders Only Neurology at [facility] [place] Razia Mims MD [facility] [place] [address] [place] [id number] [phone] (Wo rk) Social History Tobacco Use Types [...] on filedocumented in this encounter Care Teams Receiving Clerk Relationship Specialty Start Date End Date Yumiko Tavarez MD PCP - General Family Medicine 07/07/16 [address] [place] [address] documented as of this encounter
--- OUTSIDE RECORDS SUMMARY | 2022-01-20 00:10 | XMS_ITS | Encounter Summary ---
:1965 Author Organization [facility] [place] [address] Care Team Providers Name Role Phone Yumiko Tavarez MD Primary Care Provider Encounter Details Date Type Department Care Team Description 08/12/2018 Orders Only Neurology at [facility] [place] Razia Mims MD [facility] [place] [address] [place] [id number] [phone] (Wo rk) Social History Tobacco Use Types [...] on filedocumented in this encounter Care Teams Manager Commercial Sales Relationship Specialty Start Date End Date Yumiko Tavarez MD PCP - General Family Medicine 07/07/16 [address] [place] [address] documented as of this encounter
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
--- OUTSIDE RECORDS SUMMARY | 2022-01-20 00:10 | XMS_ITS | Encounter Summary ---
:1965 Author Organization [facility] [place] [address] Care Team Providers Name Role Phone Yumiko Tavarez MD Primary Care Provider Encounter Details Date Type Department Care Team Description 03/04/2020 Telephone Neurology at [facility] [place] [facility] Razia Aragon MD [facility] [address] [place] [address] [phone] (Wo rk) Social History Tobacco Use Types Packs/Day Years Used Date Smoking Tobacco: Every Day Cigarettes 1 25 Smokeless Tobacco: Never Alcohol Use Standard Drinks/Week Comments Yes 0 (1 standard drink = 0.6 oz pure alcoho l) rare/seldom Sex Assigned at Date Recorded Not on file documented as of this encounter Miscellaneous Notes Telephone Encounter - Nishi Gonsalves RN - 03/04/2020 3:53 PM EST Insurance cards still illegible, Card numbers and information called into [employer] program number Telephone Encounter - Nishi Gonsalves RN - 03/04/2020 12:37 PM EST form refaxed Telephone Encounter - Kay Mak - 03/04/2020 11:24 AM EST Call Center / [employer] Supervisor Message - General Issue Call Provider patient sees in Clinic: Jamie Aragon Caller and relationship (if other than patient-full name): Harrison Quiñones patient support program Call back number: [phone] Ok to leave a message: y Reason for call: Harrison is calling today stating that he received the enrollment form, but the insurance information wasn't readable and will need that faxed over again. Please call back to discuss if necessary. Disposition of Call (choose one and remove others): ??? Routine Message sent to the Nurse: x documented in this encounter Plan of Treatment Not on filedocumented as of this encounter Visit Diagnoses Not on filedocumented in this encounter Care Teams Gate Operator Relationship Specialty Start Date End Date Yumiko Tavarez MD PCP - General Family Medicine 07/07/16 [address] [place] [address] documented as of this encounter
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
--- OUTSIDE RECORDS SUMMARY | 2022-01-20 00:10 | XMS_ITS | Encounter Summary ---
:1965 Author Organization [facility] [place] [address] Care Team Providers Name Role Phone Yumiko Tavarez MD Primary Care Provider Encounter Details Date Type Department Care Team Description 11/20/2018 Orders Only Neurology at [facility] [place] Razia Mims, [place] [address] [phone] [place], [place] [address] (Wo rk) Social History Tobacco [...] as of this encounter Visit Diagnoses Diagnosis Preventive measure Unspecified prophylactic or treatment me asure documented in this encounter Care Teams Panel Installer Relationship Specialty Start Date End Date Yumiko Tavarez MD PCP - General Family Medicine 07/07/16 [address] [place] [address] documented as of this encounter
--- OUTSIDE RECORDS SUMMARY | 2022-01-20 00:10 | XMS_ITS | Encounter Summary ---
:1965 Author Organization [facility] [place] [address] Care Team Providers Name Role Phone Yumiko Tavarez MD Primary Care Provider Encounter Details Date Type Department Care Team Description 08/12/2018 Telephone [place]rology [place] [facility] Razia Mims MD [facility] [place] [address] [place] [address] [phone] (Wo rk) Social History Tobacco Use Types Packs/Day Years Used Date Smoking Tobacco: Every Day Cigarettes 1 25 Smokeless Tobacco: Never Alcohol Use Standard Drinks/Week Comments Yes 0 (1 standard drink = 0.6 oz pure alcoho l) Very rare Sex Assigned at Date Recorded Not on file documented as of this encounter Miscellaneous Notes Telephone Encounter - Carline Don RN - 08/13/2018 11:04 AM EDT Razia Mims MD to Me ?? 08/12/18 3:37 PM She can try going up on the dose as follows Week 1: 1mg AM, 1mg mid day, 2mg PM Week 2: 2mg AM, 1mg mid day, 2mg PM Week 3: 2mg TID If there is no benefit after 2 weeks on the 2mg TID then we will taper it off Called patient and relayed recommendations as noted. Patient verbalized understanding and agrees with this plan. She is scheduled for follow-up 09/12/18 and will report on effectiveness of increased dose at that time. Telephone Encounter - Carline Don RN - 08/12/2018 3:10 PM EDT Patient called with update for Dr Mims on how the trihexyphenidyl has been working for her. Patient reports that she has not noticed any benefit with this medication. She states that she is not having any side effects either. documented in this encounter Plan of Treatment Not on filedocumented as of this encounter Visit Diagnoses Not on filedocumented in this encounter Care Teams Fiber Glass Worker Relationship Specialty Start Date End Date Yumiko Tavarez MD PCP - General Family Medicine 07/07/16 [address] [place] [address] documented as of this encounter
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
--- OUTSIDE RECORDS SUMMARY | 2022-01-20 00:10 | XMS_ITS | Encounter Summary ---
:1965 Author Organization [place] [address] Care Team Providers Name Role Phone Yumiko Tavarez MD Primary Care Provider Encounter Details Date Type Department Care Team Description 03/26/2019 [address] [facility] [place] Razia Mims MD [facility] [place] [address] [place] [id number] [phone] (Wo rk) Social History Tobacco Use Types Packs/Day Years Used Date Smoking Tobacco: Every Day Cigarettes 1 25 Smokeless Tobacco: Never Alcohol Use Standard Drinks/Week Comments Yes 0 (1 standard drink = 0.6 oz pure alcoho l) Very rare Sex Assigned at Date Recorded Not on file documented as of this encounter Miscellaneous Notes Telephone Encounter - Nishi Gee RN - 04/02/2019 9:29 AM EST Per : Ok she can increase to 25mg BID. We will need to fax the updated script to [facility]. RJT I phoned pt and reviewed/instructed above. She agrees with plan and verbalizes understanding. Telephone Encounter - Nishi Gee RN - 04/01/2019 3:02 PM EST Pt phoned and left message on triage line that after another week the current dose of tetrabenazine is not working. She would like to increase the dose as previously recommended. I will forward to Dr. Mims. Telephone Encounter - Nishi Gee RN - 03/26/2019 3:[address] Mims: If there is still no difference at the end of this month (one more week), then we will increase to 25mg BID. I think I would have to update the script through [facility] I phoned pt and reviewed/instructed above. She will call with update in one week. Pt agrees with plan and verbalizes understanding. Telephone Encounter - Nishi Gee RN - 03/26/2019 3:17 PM EST Last visit 09/12/18 Next visit 09/02/19 Patient phoned. She states she started taking Tetrabenazine 12.5 mg BID at the 1st of this year. Shestates she has not noticed a difference yet but wonders if she needs to be on it longer or on a higher dose. Plan: I will forward to Dr. Mims for further review and recommendation. Pt aware I will phone back once input available. documented in this encounter Plan of Treatment Not on filedocumented as of this encounter Visit Diagnoses Not on filedocumented in this encounter Care Teams High Pressure Cleaner Relationship Specialty Start Date End Date Yumiko Tavarez MD PCP - General Family Medicine 07/07/16 [address] [place] [address] documented as of this encounter
--- OUTSIDE RECORDS SUMMARY | 2022-01-20 00:10 | XMS_ITS | Encounter Summary ---
:1965 Author Organization [place] [address] Care Team Providers Name Role Phone Yumiko Tavarez MD Primary Care Provider Reason for Visit Reason Onset Date Comments Other 11/08/2018 Encounter Details Date Type Department Care Team Description 11/08/2018 Telephone Neurology at [facility] Razia Mims MD Other [facility] [place] [address] [place], [place] [id number] [phone] (Wo rk) Social History Tobacco Use Types Packs/Day Years Used Date Smoking Tobacco: Every Day Cigarettes 1 25 Smokeless Tobacco: Never Alcohol Use Standard Drinks/Week Comments Yes 0 (1 standard drink = 0.6 oz pure alcoho l) Very rare Sex Assigned at Date Recorded Not on file documented as of this encounter Miscellaneous Notes Telephone Encounter - Rita Smith RN - 11/20/2018 8:54 AM EDT Returned call to Miguelina. Per Dr. Mims: It would be the tetrabenazine but I can't start it without having a baseline EKG. I can order it but she lives in [place], [place] so I am wondering if she has a local hospital whereshe would want us to send the order. Miguelina says she can use [facility]. Patient also says that she has had sensitivity to Mirtazapine in the past and wants to know if this medication might cause her elevated heart rate and jittery feeling. Patient informed: tetrabenazine might cause a change in heart electrical activity that results in abnormal heart rate, and this effect is one reason we would like to obtain an EKG before you try this medication. Miguelina verbalized understanding and agrees to plan. Mirtazapine added to the Allergies/ Intolerance list. Prepped EKG order to go to [facility], will forward to physician. Telephone Encounter - Rita Smith RN - 11/13/2018 11:39 AM EDT Received call from Miguelina. Gave patient Mirapex medication update per Dr. Mims: Ok she can cut back to 0.5mg TID for a week then stop. Miguelina verbalized understanding and agrees to plan. She also wants to know if there will be a replacement medication. Confirmed for Miguelina, a replacement medication was not ordered, but her request can be made at this time. Patient agrees. Please, let know I would like to try another medication, as a replacement, before the January appointment. No other questions or concerns at this time. Telephone Encounter - Brenda Solo - 11/08/2018 3:19 PM EDT Clinical [place] Message Caller: Miguelina Call back Number: [phone] Reason for call: patient calling to give update Update on Medication Name of Medication: Mirapex Patient Update/ Report: The pt called stating that this medication hasn't been relieving her symptoms since she increased the dose about 3-4 weeks ago. Does patient require call back: Yes Disposition of Call ?? Patient with questions/additional needs message forwarded to nurse documented in this encounter Plan of Treatment Not on filedocumented as of this encounter Visit Diagnoses Diagnosis Primary parkinsonism Paralysis agitans Tremors of nervous system Abnormal involuntary movements Screening procedure Screening for unspecified condition documented in this encounter Care Teams Business And Financial Counsel Relationship Specialty Start Date End Date Yumiko Tavarez MD PCP - General Family Medicine 07/07/[address] [place] [address] documented as of this encounter
--- OUTSIDE RECORDS SUMMARY | 2022-01-20 00:10 | XMS_ITS | Encounter Summary ---
:1965 Author Organization [facility] [place] [address] Care Team Providers Name Role Phone Yumiko Tavarez MD Primary Care Provider Reason for Referral Diagnostic Test (Routine) - Closed Specialty Diagnoses / Procedures Referred By Contact Refer red To Contact Radiology Diagnoses Tremors of nervous system Razia Mims MD [facility] Rad Nuclear Med Procedures NM IRMA Scan [address] [address] Fax: Referral ID Status Reason Start Date Expiration Date Visits V isits Requested Authorized [id number] Closed Specialty 12/18/2016 12/18/2017 3 3 Service Requested Reason for Visit Diagnostic Test (Routine) - Closed Specialty Diagnoses / Procedures Referred By Contact Refer red To Contact Radiology Diagnoses Tremors of nervous system Razia Mims MD [facility] Rad Nuclear Med Procedures NM IRMA Scan [facility] [address] [place] [address] Fax: Referral ID Status Reason Start Date Expiration Date Visits V isits Requested Authorized [id number] Closed Specialty 12/18/2016 12/18/2017 3 3 Service Requested Encounter Details Date Type Department Care Team Description 01/10/2017 Hospital En[facility] C Razia Isaac MD [facility] [address] [place], [place] [phone] Social History Tobacco Use Types Packs/Day Years [...] results section. documented in this encounter Results NM IRMA Scan (01/10/2017 3:39 PM EST) Anatomical Region Laterality Modality Nuclear Medicine Specimen (Source) Anatomical Location Collection Method / Collectio n Time Received Time / Laterality Volume Impressions 01/10/2017 4:30 PM EST Abnormal dopamine transporter scan with above findings consistent with a Parkinsonian syndrome. I have personally reviewed the image(s) and the residents interpretation and agree with the findings, Oscar Le at 01/10/2017 4:30 PM Narrative 01/10/2017 4:30 PM EST EXAMINATION: NM IRMA SCAN CLINICAL HISTORY: parkinsonism, per clin ical history in medical chart prominent right sided rest tremor TECHNIQUE: Pretreatment with oral potass ium iodide was given. Following this, I-123 ioflupane was administered intrave nously in a dose of 5.3 mCi. Four hours later, tomographic imaging of the brain was performed with images reconstructed in the axial, sagittal and coronal plane s COMPARISON: MRI brain 11/20/2016 FINDINGS: Moderately decreased activity in the left caudate and severely decreased activity within the left putam en. Relatively normal activity within the right caudate and putamen. Procedure Note Oscar Le MD - 01/10/2017Formatti ng of this note might be different from the original. EXAMINATION: NM IRMA SCAN CLINICAL HISTORY: parkinsonism, per clin ical history in medical chart prominent right sided rest tremor TECHNIQUE: Pretreatment with oral potass ium iodide was given. Following this, I-123 ioflupane was administered intrave nously in a dose of 5.3 mCi. Four hours later, tomographic imaging of the brain was performed with images reconstructed in the axial, sagittal and coronal plane s COMPARISON: MRI brain 11/20/2016 FINDINGS: Moderately decreased activity in the left caudate and severely decreased activity within the left putam en. Relatively normal activity within the right caudate and putamen. IMPRESSION Abnormal dopamine transporter scan with above findings consistent with a Parkinsonian syndrome. I have personally reviewed the image(s) and the residents interpretation and agree with the findings, Oscar Le at 01/10/2017 4:30 PM Razia Mims MD [facility] [place] [place] NM ORDERABLES documented in this encounter Visit Diagnoses Diagnosis Tremors of nervous system Abnormal involuntary movements documented in this encounter Care Teams Supervisor [employer] Relationship Specialty Start Date End Date Yumiko Tavarez MD PCP - General Family Medicine 07/07/[address] [place] [address] documented as of this encounter
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
--- OUTSIDE RECORDS SUMMARY | 2022-01-20 00:10 | XMS_ITS | Encounter Summary ---
:1965 Author Organization [facility] [place] [address] Care Team Providers Name Role Phone Yumiko Tavarez MD Primary Care Provider Reason for Visit Reason Onset Date Comments Medication Problem 03/04/2020 Encounter Details Date Type Department Care Team Description 03/04/2020 Telephone Neurology at [facility] Razia Mims, Medication Problem [facility] [place] [address] [facility] [phone] [place] [id number] (Wo rk) Social History Tobacco Use Types Packs/Day Years Used Date Smoking Tobacco: Every Day Cigarettes 1 25 Smokeless Tobacco: Never Alcohol Use Standard Drinks/Week Comments Yes 0 (1 standard drink = 0.6 oz pure alcoho l) rare/seldom Sex Assigned at Date Recorded Not on file documented as of this encounter Miscellaneous Notes Telephone Encounter - Nishi Gonsalves RN - 03/04/2020 12:36 PM EST Form refaxed Telephone Encounter - Christin Sánchez - 03/04/2020 11:22 AM EST Call Center / [place] Message - Medication Issue (Not to be used for refill request or medication prior auth request) Provider patient sees in Clinic: Dr. Mims Caller and relationship (if other than patient-full name): Dick Rothman patient support program Call Back Number: [phone] Ok to leave a message: Reason for call: Medication Issue (if medication issue is a symptom do not use this phrase) Message/information for the nurse: Name of Medication: Rytary 195mg Issue with the medication: Dick called stating that the fax he received was blurry and he needs some information on insurance for patient . They are open from 8:00 am- 8;00pm - except closed Disposition of Call: ?? Routine Message sent to the Nurse yes ?? Other: no documented in this encounter Plan of Treatment Not on filedocumented as of this encounter Visit Diagnoses Not on filedocumented in this encounter Care Teams Vice President Mission [employer] Relationship Specialty Start Date End Date Yumiko Tavarez MD PCP - General Family Medicine 07/07/16 [address] [place] [address] documented as of this encounter
--- OUTSIDE RECORDS SUMMARY | 2022-01-20 00:10 | XMS_ITS | Encounter Summary ---
:1965 Author Organization [facility] [place] [address] Care Team Providers Name Role Phone Yumiko Tavarez MD Primary Care Provider Encounter Details Date Type Department Care Team Description 09/12/2018 Office Visit Neurology at [facility] Razia Mims Primary Parkinsonism [facility] [place] [address] [address] [phone] [place] [id number] Social History Tobacco Use Types Packs/Day Years Used Date Smoking Tobacco: Every Day Cigarettes 1 25 Smokeless Tobacco: Never Alcohol Use Standard Drinks/Week Comments Yes 0 (1 standard drink = 0.6 oz pure alcoho l) Very rare Sex Assigned at Date Recorded Not on file documented as of this encounter Last Filed Vital Signs Vital Sign Reading Time Taken Comments Blood Pressure 126/76 09/12/2018 10:53 AM EDT Pulse 61 09/12/2018 10:53 AM EDT Temperature - - Respiratory Rate - - Oxygen Saturation - - Inhaled Oxygen Concentration - - Weight 60.3 kg (133 lb) 09/12/2018 10:53 AM EDT Height 148.6 cm (4' 10.5) 09/12/2018 10:53 AM EDT repo rted Body Mass Index 27.32 09/12/2018 10:53 AM EDT documented in this encounter Patient Instructions Patient InstructionsThRazia puente MD - 09/12/2018 11:00 AM EDT Tapering off the artane Take twice a day for 5 days then daily for 5 days then stop Start on the pramipexole taking 1 tab three times daily for two weeks then increase to 2 tabs three times daily, then check in to let me know how this is working documented in this encounter Progress Notes Razia Mims MD - 09/12/2018 11:00 AM EDT [facility] Movement Disorders Follow Up Patient Evaluation Date of service 09/12/2018 Referring provider Yumiko Tavarez MD [address] [place] [address] Cc: tremor History of present illness Miguelina [...] Primary Parkinsonism G20 Current Outpatient Medications: ??? trihexyphenidyl (ARTANE) 2 mg Tablet, Take 1 tablet by mouth 3 times daily., Disp: 90 tablet, Rfl: 11 ??? pregabalin (LYRICA) 150 mg Capsule, Take 150 mg by mouth 2 times daily., Disp: , Rfl: ??? ketoconazole (NIZORAL) 2 % Cream, Apply topically 2 times daily as needed., Disp: , Rfl: ??? naloxone (NARCAN) 4 mg/actuation [place], Non-Aerosol, 1 spray by Nasal route as [...] mouth once a week., Disp:, Rfl: ??? denosumab (PROLIA) 60 mg/mL Syringe, Inject 60 mg subcutaneously Q6 Months., Disp: , Rfl: ??? zolpidem (AMBIEN) 10 mg Tablet, Take 10 mg by mouth nightly., Disp: , Rfl: ??? oxyCODONE-acetaminophen (PERCOCET) 10-325 mg Tablet, Take 1 tablet by mouth every 6 hours as needed for Pain., Disp: , Rfl: Social History: Lives in [facility], she is retired from [employer]. Remote history of cocaine use (2 times only) Review of Systems - All others negative except forgetfulness, back pain, difficulty walking, near falls Physical Exam Most Recent Vitals: 09/12/18 1053 BP: 126/76 Pulse: 61 General: the patient appears stated age, not in any acute distress, well groomed, Body mass index is27.32 kg/m??. HEENT: normal cephalic atraumatic, eye conjunctiva [...] Disease Rating Scale Part lll: Motor Examination Review of available labs and imaging: Labs [...] up to 2mg TID was not helpful. I am going to try mirapex today. Possible some of the leg movements are [...] management at this time. She has a history of seizures circa 2005 and is no longer on meds for this. Plan: - trial of mirapex up to 0.5mg TID - future consideration of ADCY5 testing or other genetic testing Razia Mims MD [facility] Neurology-Movement Disorders documented in this encounter Plan of Treatment Not on filedocumented as of this encounter Visit Diagnoses Diagnosis Primary parkinsonism Paralysis agitans documented in this encounter Care Teams Material Handler Floorperson Relationship Specialty Start Date End Date Yumiko Tavarez MD PCP - General Family Medicine 07/07/16 [address] [place] [address] documented as of this encounter
--- OUTSIDE RECORDS SUMMARY | 2022-01-20 00:10 | XMS_ITS | Encounter Summary ---
:1965 [place] [address] Care Team Providers Name Role Phone Yumiko Tavarez MD Primary Care Provider Encounter Details Date Type Department Care Team Description 11/20/2016 Laboratory Appointment Lab [address] [place] [address] Social History Tobacco Use Types Packs/Day Years [...] Procedure Name Priority Date/Time Associated Comments Diagnosis [facility] Routine 11/20/2016 1:50 PM Re sults for this EDT procedure are i n the results section. MISCELLANEOUS LAB Routine 11/20/2016 1:49 PM [place] Resu lts for this REQUEST EDT procedure are i n the results section. LYME IGG & IGM Routine 11/20/2016 1:49 PM [place] Results for this ANTIBODY EDT procedure are i n the results section. HEMOGRAM Routine 11/20/2016 1:49 PM [place] Results f or this EDT procedure are i n the results section. DIFFERENTIAL, Routine 11/20/2016 1:49 PM [place] Results for this AUTOMATED EDT procedure are i n the results section. CERULOPLASMIN Routine 11/20/2016 1:49 PM [place] Results for this EDT procedure are i n the results section. CARDIOLIPIN ANTIBODY Routine 11/20/2016 1:49 PM [place] R esults for this SCREEN EDT procedure are i n the results section. CBC (WITH DIFF) Routine 11/20/2016 1:49 PM [place] EDT STREPTOCOCCAL ANTIBODY Routine 11/20/2016 1:49 PM [place] Results for this PANEL EDT procedure are i n the results section. C3 COMPLEMENT Routine 11/20/2016 1:49 PM [place] Results for this EDT procedure are i n the results section. C4 COMPLEMENT Routine 11/20/2016 1:49 PM [place] Results for this EDT procedure are i n the results section. ARMEN ANTIBODY SCREEN Routine 11/20/2016 1:49 PM [place] Re sults for this EDT procedure are i n the results section. T4, FREE Routine 11/20/2016 1:49 PM [place] Results f or this EDT procedure are i n the results section. COMPREHENSIVE Routine 11/20/2016 1:49 PM [place] Results for this METABOLIC PANEL EDT procedure ar e in (NON-FASTING) the results section. documented in this encounter Results [facility] (11/20/2016 1:50 PM EDT) Component Value Ref Test Analysis Performed At [facility] Range Method Time Signature Misc Jones GREER Test ?Result ? Flag ??Unit ??RefValue [place] [facility] [place] Disease Analysis HO SPITAL ??Result Summary ?NEGATIV E LABORATORY ??Result ?CAG repeat: 17 and 18 (Normal) ??Interpretation ?SEE COM MENTS ?This result suggests that this individual is very unli rhina ?to have [place] disease (HD). To date, alterations other ?than CAG expansions in the HTT gene have not been ?associated with HD. This result does not rule out the ?diagnosis of other inherited neurodegenerative disorde rs ?that have overlapping clinical features with HD. ?A genetic consultation may be of benefit. ? ADDITIONAL INFORMATION ------ ?A PCR-based assay was utilized to detect CAG repeat ?expansions in exon 1 of the HTT gene. We estimate that the ?number of CAG repeats is correct within +/-5%. ?Normal: <27 ?Intermediate: 27-35 ?Reduced penetrance: 36-39 ?Full penetrance: >39 ?An online research opportunity called [employer] ?([employer]), a project of [employer], is availabl e for ?the recipient of this genetic test. This patient deb try ?collects de-identified genetic and health information to ?advance the knowledge of genetic variants. [facility] [place] is a ?collaborator of [employer]. This may not be applicable fo r all ?tests. ?Test results should be interpreted in the context of ?clinical findings, family history, and other laborator y ?data. Misinterpretation of results may occur if the ?information provided is inaccurate or incomplete. ?Rare polymorphisms exist that could lead to false-nega tive ?or false-positive results. If results obtained do not match ?the clinical findings, additional testing should be ?considered. ?Bone Marrow transplants from allogenic donors will ?interfere with testing. Call [facility] for ?instructions for testing patients who have received a bone ?marrow transplant. ?Multiple in-silico evaluation tools may have been used to ?assist in the interpretation of these results. Of note , the ?sensitivity and specificity of these tools for the ?determination of pathogenicity is currently unvalidate d. ?This test was developed and its performance characteri stics ?determined by [facility] [place] in a manner consistent with CLIA ?requirements. This test has not been cleared or approv ed by ?the U.S. Food and Drug Administration. ??Reason for Referral ? SEE COMMEN TS ?Evaluation for a diagnosis of [place] disease (HD). Test ?for the presence of an expansion in the HTT gene. ??Specimen ?WB W hole Blood ??Released By ? Angelica Crawford M.D. ?Test Performed by: ?[facility] [place] [facility] ?[address] [place] [address] Specimen Anatomical Collection Method Collection Time Receive d Time (Source) Location / / Volume Laterality Blood specimen Venous Draw / 11/20/2016 1:50 PM 2016 4:05 (specimen) Unknown EDT PM EDT Resulting Agency Comment Spec In Lab Razia Mims MD CHEMISTRY ORDERABLES Performing Organization Address City/State/Z[place] [address] Differential, Automated (11/20/2016 1:49 PM EDT) athologist Signature Neutrophils % 49.9 % [facility] LABORATORY Neutr Abs (ANC) 3.35 1.70 - [place] 6.10 [facility] x10(3)/[facility] LABORATORY Lymphocytes % 43.5 % [facility] LABOR[facility]ORY Lymphocytes Abs 2.9 0.9 - 3.2 [facility] x10(3)/[facility] LABORATORY Monocytes % 5.6 % [facility] LABORATORY Monocyte Abs 0.4 0.3 - 0.9 [facility] x10(3)/[facility] LABORATORY Eosinophils % 0.6 % [facility] LABOR[facility]ORY Eosinophils Abs 0.0 0.0 - 0.4 [facility] x10(3)/[facility] LABORATORY Basophils % 0.3 % [facility] LABORATORY Basophils Abs 0.0 0.0 - 0.1 [facility] x10(3)/[facility] LABORATORY Immature Gran % 0.10 % [facility] LABOR[facility]ORY Comment: Immature granulocytes(IG's)percentage an d absolute count will include metamyelocytes, myelocytes, and promyelo cytes. Blood smears from CBCs yielding IG's will be scanned manually for concor dance. If this scan disagrees with the automated IG or if promyelocytes are not ed, a manual differential will be performed. Kimberly Gran Abs 0.01 0.00 - 0.04 x10(3)/[facility] MAR Y [facility] LABORATORY Specimen Anatomical Collection Method Collection Time Receive d Time (Source) Location / / Volume Laterality Blood specimen 11/20/2016 1:49 PM 017 2:01 (specimen) EDT PM EDT Resulting Agency Comment Spec In Lab Razia Mims MD HEMATOLOGY ORDERABLES Performing Organization Address City/State/ZIP [place] [address] (ABNORMAL) Hemogram (11/20/2016 1:49 PM EDT) Analysis Performed At Patho logist Time Signature WBC 6.7 4.0 - 9.5 [facility] x10(3)/[facility] LABORATORY RBC 3.99 (L) 4.00 - [facility] x10(6)/[facility] LABORATORY Hemoglobin 12.8 11.7 - [facility] 15.5 gm/dL [facility] LABORATORY Hematocrit 37.4 35.7 - [facility] 45.8 % [facility] LAB[facility] MCV 93.7 82.6 - [facility] 94.4 fL [facility] LABORATORY MCH 32.1 (H) 27.1 - [facility] 32.0 pg [facility] MCHC 34.2 31.7 - [facility] gm/dL [facility] Platelets 262 145 - 357 [place] x10(3)/[facility] LABORATORY RDWSD 38.8 37.0 - [place] 46.0 [facility] LABORATORY RDWCV 11.4 (L) 11.5 - [place] 14.1 % [facility] LAB[facility]ATORY MPV 10.3 7.6 - 12.9 [facility] LABORATORY nRBC % Auto 0.0 % [facility] LABORATORY nRBC Abs Auto 0.000 0.000 - [place] 0.000 [facility] x10(3)/[facility] LABORATORY Specimen Anatomical Collection Method Collection Time Receive d Time (Source) Location / / Volume Laterality Blood specimen 11/20/2016 1:49 PM 017 2:01 (specimen) EDT PM EDT Resulting Agency Comment Spec In Lab Razia Mims MD HEMATOLOGY ORDERABLES Performing Organization Address City/[facility]/ZIP Code Phon e Number [address] Lyme IgG & IgM Antibody (11/20/2016 1:49 PM EDT) P athologist Signature Lyme Screening Neg Neg [facility] LABORATORY Specimen Anatomical Collection Method Collection Time Receive d Time (Source) Location / / Volume Laterality Blood specimen 11/20/2016 1:49 PM 017 8:31 (specimen) EDT AM EDT Resulting Agency Comment Spec In Lab Razia Mims MD IMMUNOLOGY ORDERABLES Performing Organization Address City/[facility]/ZIP Code Phon e Number [address] Ceruloplasmin (11/20/2016 1:49 PM EDT) P athologist Signature Ceruloplasmin 37.5 16.0 - [place] 45.0 mg/dL [facility] LABORATORY Specimen Anatomical Collection Method Collection Time Receive d Time (Source) Location / / Volume Laterality Blood specimen 11/20/2016 1:49 PM 017 2:01 (specimen) EDT PM EDT Resulting Agency Comment Spec In Lab Razia Mims MD CHEMISTRY ORDERABLES Performing Organization Address City/State/[place] [address] Miscellaneous Lab request (11/20/2016 1:49 PM EDT) Patholo gist Method Time Signature Misc Lab Request [place] Result received in [facility] LABORATORY Specimen Anatomical Collection Method Collection Time Receive d Time (Source) Location / / Volume Laterality Blood specimen 11/20/2016 1:49 PM 017 2:01 (specimen) EDT PM EDT Resulting Agency Comment Spec In Lab Razia Mims MD HEMATOLOGY ORDERABLES Performing Organization Address City/[facility]/[place] [address] Streptococcal Antibody Panel (11/20/2016 1:49 PM EDT) athologist Signature ASO Titer 44 0 - 530 [facility] [place] IU/mL [facility] LABORATORY Comment: Test Performed by: [facility] [place] [facility] - [address] [address] DNase B Ab <74 0 - 300 unit/mL [facility] K [facility] LAB[facility]ORY Comment: Test Performed by: [facility] - [address] [address] Specimen Anatomical Collection Method Collection Time Receive d Time (Source) Location / / Volume Laterality Blood specimen 11/20/2016 1:49 PM 017 4:01 (specimen) EDT PM EDT Resulting Agency Comment Spec In Lab Razia Mims MD IMMUNOLOGY ORDERABLES Performing Organization Address City/State/ZIP Code Phon e Number [address] C4 Complement (11/20/2016 1:49 PM EDT) P athologist Signature C4 Complement 27 10 - 40 [place] mg/dL [facility] LABORATORY Specimen Anatomical Collection Method Collection Time Receive d Time (Source) Location / / Volume Laterality Blood specimen 11/20/2016 1:49 PM 017 2:01 (specimen) EDT PM EDT Resulting Agency Comment Spec In Lab Razia Mims MD CHEMISTRY ORDERABLES Performing Organization Address City/State/[place] [address] C3 Complement (11/20/2016 1:49 PM EDT) P athologist Signature C3 Complement 119 90 - 180 [facility] Specimen Anatomical Collection Method Collection Time Receive d Time (Source) Location / / Volume Laterality Blood specimen 11/20/2016 1:49 PM 017 2:01 (specimen) EDT PM EDT Resulting Agency Comment Spec In Lab Razia Mims MD CHEMISTRY ORDERABLES Performing Organization Address City/[facility]/ZIP Code Phon e Number [address] T4, free (11/20/2016 1:49 PM EDT) P athologist Signature Free T4 1.04 0.93 - 1.70 [facility] ng/dL [facility] LABOR[facility]ORY Specimen Anatomical Collection Method Collection Time Receive d Time (Source) Location / / Volume Laterality Blood specimen 11/20/2016 1:49 PM 017 2:01 (specimen) EDT PM EDT Resulting Agency Comment Spec In Lab Razia Mims MD CHEMISTRY ORDERABLES Performing Organization Address City/[facility]/[place] [address] ARMEN (11/20/2016 1:49 PM EDT) P athologist Signature ARMEN Neg Neg [facility] LABORATORY Specimen Anatomical Collection Method Collection Time Receive d Time (Source) Location / / Volume Laterality Blood specimen 11/20/2016 1:49 PM 017 7:30 (specimen) EDT AM EDT Resulting Agency Comment Spec In Lab Razia Mims MD IMMUNOLOGY ORDERABLES Performing Organization Address City/[facility]/[place] [address] Cardiolipin Antibody Screen (11/20/2016 1:49 PM EDT) P athologist Signature Cardiolipin IgG <23 <=22 GPL [facility] unit(s) [facility] LABORATORY Comment: Ranges ? GPL ------- ? ------ Normal ?<23 Low Positive ? 23-35 Moderate Positive ?36 -50 High Positive ? >5 0 Cardiolipin IgM <11 <=10 MPL unit(s) [place] [facility] LABORATORY Comment: Ranges ?MPL ----- ?----- Normal ?<11 Low Positive ? 11-20 Moderate Positive ?21 -30 High Positive ? >3 0 Specimen Anatomical Collection Method Collection Time Receive d Time (Source) Location / / Volume Laterality Blood specimen 11/20/2016 1:49 PM 017 7:30 (specimen) EDT AM EDT Resulting Agency Comment Spec In Lab Razia Mims MD IMMUNOLOGY ORDERABLES Performing Organization Address City/State/ZIP Code Phon e Number [place] [address] (ABNORMAL) Comprehensive metabolic panel (non-fasting) (11/20/2016 1:49 PM EDT) athologist Signature Glucose Lvl 85 65 - 199 [place] mg/dL [facility] Comment: Diabetes: >=200 mg/dL plus symp toms BUN 18 8 - 18 mg/dL [facility] LAB[facility] Creatinine 1.12 0.70 - 1.20 mg/dL [facility] Comment: Please note that the pediatric reference intervals supplied above were not validated at [facility]. Results from pediatri c patients should be interpreted in conjunction to the patient's age, height and muscle mass. Sodium 141 135 - 145 mmol/L [facility] Potassium 3.8 3.5 - 5.0 mmol/L [facility] Comment: Please note: ??Patients with WBC >100,00 0 may have falsely elevated Potassium levels. ??For accurate Potassium quantif ication in these patients send serum separator tube (gold top) for subsequent determinations. ??Contact the Clinical Chemistry Laboratory if there are any qu estions. Chloride 99 98 - 107 mmol/L [facility] CO2 31 22 - 31 mmol/L [facility] Anion Gap 11 5 - 15 mmol/L [facility] Calcium 9.6 8.5 - 10.5 mg/dL [facility] Total Protein 7.5 6.1 - 8.0 gm/dL [facility] LABORATORY Albumin 4.2 3.2 - 5.2 gm/dL [facility] AST 17 0 - 30 unit/L [facility] ALT 11 0 - 30 unit/L [facility] Alk Phos 53 40 - 104 unit/L [facility] Total Bilirubin 0.2 0.2 - 1.3 mg/dL [facility] Estimated GFR 51 (L) >=60 [facility] Comment: This estimated GFR (eGFR) value was calc ulated using the MDRD equation which has been validated on patients between t he ages of 18 and 70. The MDRD should not be used to assess kidney function in patients < 18 years of age or in patients with extremes of body mass, or in patients with acute kidney failure. This value should be multiplied by 1.2 f or patients. For further information please copy and past e the following links into your internet browser. http://[employer]/DHnkdep http://[employer]/DHMCnkf Specimen Anatomical Collection Method Collection Time Receive d Time (Source) Location / / Volume Laterality Blood specimen 11/20/2016 1:49 PM 017 2:01 (specimen) EDT PM EDT Resulting Agency Comment Spec In Lab Razia Mims MD CHEMISTRY ORDERABLES Performing Organization Address City/State/[facility] [place] [address] documented in this encounter Visit Diagnoses Diagnosis Chorea Other choreas documented in this encounter Care Teams Carton Forming Machine Helper Relationship Specialty Start Date End Date Yumiko Tavarez MD PCP - General Family Medicine 07/07/16 [address] [place] [address] documented as of this encounter
--- OUTSIDE RECORDS SUMMARY | 2022-01-20 00:10 | XMS_ITS | Encounter Summary ---
:1965 Author Organization [facility] [place] [address] Care Team Providers Name Role Phone Yumiko Tavarez MD Primary Care Provider Encounter Details Date Type Department Care Team Description 11/03/2016 Orders Only Neurology at [facility] [place] [address] Social History Tobacco Use Types Packs/Day [...] on filedocumented in this encounter Care Teams Java Groovy Developer Relationship Specialty Start Date End Date Yumiko Tavarez MD PCP - General Family Medicine 07/07/16 [address] [place] [address] documented as of this encounter
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
--- OUTSIDE RECORDS SUMMARY | 2022-01-20 00:10 | XMS_ITS | Encounter Summary ---
:1965 Author Organization [place] [address] Care Team Providers Name Role Phone Yumiko Tavarez MD Primary Care Provider Encounter Details Date Type Department Care Team Description 01/21/2019 Telephone Neurology at [facility] Razia Mims MD [facility] [place] [address] [place] [address] [phone] (Wo rk) Social History Tobacco Use Types Packs/Day Years Used Date Smoking Tobacco: Every Day Cigarettes 1 25 Smokeless Tobacco: Never Alcohol Use Standard Drinks/Week Comments Yes 0 (1 standard drink = 0.6 oz pure alcoho l) Very rare Sex Assigned at Date Recorded Not on file documented as of this encounter Miscellaneous Notes Telephone Encounter - Nishi Gee RN - 01/21/2019 3:51 PM EST Per : Great yes the QT interval is fine. She can start tetrabenazine 12.5mg BID. If it is expensive then I will have her sign up for [place]. RJT I phoned pt and reviewed/instructed above. She agrees with plan and verbalizes understanding. New rxgenerated for provider review and signature. Telephone Encounter - Nishi Gee RN - 01/21/2019 11:20 AM EST I will forward to . Telephone Encounter - Radha Bobby - 01/21/2019 11:06 AM EST Clinical Coventry Message Caller: Miguelina Call back Number: [phone] Reason for call: EKG Message/information for the nurse: the pt called to talk to a nurse about he medication Dr. Vidal going to put her on after the EKG which she got done 01/16. She would like a call back. Disposition of Call ?? Routine Message sent to the Nurse documented in this encounter Plan of Treatment Not on filedocumented as of this encounter Visit Diagnoses Not on filedocumented in this encounter Care Teams Sample Puller Relationship Specialty Start Date End Date Yumiko Tavarez MD PCP - General Family Medicine 07/07/16 [address] [place] [address] documented as of this encounter
--- OUTSIDE RECORDS SUMMARY | 2022-01-20 00:10 | XMS_ITS | Encounter Summary ---
:1965 Author Organization [facility] [address] Care Team Providers Name Role Phone Yumiko Tavarez MD Primary Care Provider Encounter Details Date Type Department Care Team Description 05/12/2018 Orders Only Neurology at [facility] [place] Razia Mims MD [facility] [place] [address] [place] [phone] (Wo rk) Social History Tobacco Use Types [...] on filedocumented in this encounter Care Teams Upholstery Estimator Relationship Specialty Start Date End Date Yumiko Tavarez MD PCP - General Family Medicine 07/07/16 [address] [place] [address] documented as of this encounter
--- OUTSIDE RECORDS SUMMARY | 2022-01-20 00:10 | XMS_ITS | Encounter Summary ---
:1965 Author Organization [facility] [place] [address] Care Team Providers Name Role Phone Yumiko Tavarez MD Primary Care Provider Reason for Visit Reason Onset Date Comments Other 02/04/2019 tetrabenazine Encounter Details Date Type Department Care Team Description 02/04/2019 Telephone Neurology at [facility] [place] Razia Mims (tetrabenazine) [facility] [place] [address] [address] [address] [phone] [place], [place] [address] (Wo rk) Social History Tobacco Use Types Packs/Day Years Used Date Smoking Tobacco: Every Day Cigarettes 1 25 Smokeless Tobacco: Never Alcohol Use Standard Drinks/Week Comments Yes 0 (1 standard drink = 0.6 oz pure alcoho l) Very rare Sex Assigned at Date Recorded Not on file documented as of this encounter Miscellaneous Notes Telephone Encounter - Nishi Gee RN - 02/13/2019 1:53 PM EST Insurance information and clinicals faxed to [facility] on 02/13/19 at 2:02 pm to fax number [phone]. Telephone Encounter - Whit Juares - 02/13/2019 12:05 PM EST [facility] called to ask that pt's insurance information and the clinicals regarding the medication be faxed to [phone]. Telephone Encounter - Nishi Gee RN - 02/12/2019 2:22 PM EST Tetrabenazine order form faxed to [employer] on 02/12/19 at 2:23 pm to fax number [phone]. Copy sent to medical records to be scanned to chart. Telephone Encounter - Nishi Gee RN - 02/05/2019 4:45 PM EST I phoned patient back. Explained she could get the tetrabenazine through mail order specialty pharmacy which will mail the medication to her. She states the local pharmacy is going to charge too much. I explained this was approved through her insurance. She states she will be going on her spouses insurance Mar 05, 2019. I explained it would have to be reprocessed at that time that there is no way to tell if that will be covered under the new insurance at this time. Pt states she has never used a mailorder specialty pharmacy before. I instructed her she will need to call her insurance and ask who they are contracted with. She would then need to call that specialty pharmacy and get signed up with them which she needs to do herself. Pt states that seems like an awful lot of work. I explained I will update and get back to her. Telephone Encounter - Teofilo Naye - 02/05/2019 4:36 PM EST Clinical Fiber Optics Supervisor Message Caller: Miguelina If not Pt / Relation to pt: Call back Number: [phone] Reason for call: Pt states that she does not believe she will be able to get from speciality pharmacy. Message/information for the nurse: States she is not sure where she would go for a speciality pharmacy as there is nothing close to her. States she is not sure if she should try another medication. Disposition of Call ?? Routine Message sent to the Nurse Telephone Encounter - Nishi Gee RN - 02/04/2019 4:20 PM EST I will forward to Dr. Mims. Telephone Encounter - Naye Red - 02/04/2019 4:09 PM EST Clinical Fiber Optics Supervisor Message Caller: Miguelina If not Pt / Relation to pt: Call back Number: [phone] Reason for call: Pts medication Message/information for the nurse: Pt states that Eric Akers never received the Tetrabenazine due to it needing to go to speciality pharmacy. Pt cancelled her 02/13 appt due to not being on the medication yet. Rescheduled for 09/01 on high cancellation list. Disposition of Call ?? [place] Message Reason red arrow Message: ?? documented in this encounter Plan of Treatment Not on filedocumented as of this encounter Visit Diagnoses Not on filedocumented in this encounter Care Teams Sld Inclusion Teacher Relationship Specialty Start Date End Date Yumiko Tavarez MD PCP - General Family Medicine 07/07/16 [address] [place] [address] documented as of this encounter
--- OUTSIDE RECORDS SUMMARY | 2022-01-20 00:10 | XMS_ITS | Encounter Summary ---
:1965 Author Organization [facility] [place] [address] Care Team Providers Name Role Phone Yumiko Tavarez MD Primary Care Provider Reason for Visit Reason Onset Date Comments Medication Refill 04/02/2019 Encounter Details Date Type Department Care Team Description 04/02/2019 Refill [place] [facility] [place] Razia Mims MD [facility] [place] [address] [place] [address] [phone] (Wo rk) Social History Tobacco Use Types [...] on filedocumented in this encounter Care Teams Nurse Unit Manager Relationship Specialty Start Date End Date Yumiko Tavarez MD PCP - General Family Medicine 07/07/16 [address] [place] [address] documented as of this encounter
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
--- OUTSIDE RECORDS SUMMARY | 2022-01-20 00:10 | XMS_ITS | Encounter Summary ---
:1965 Author Organization [facility] [place] [address] Care Team Providers Name Role Phone Yumiko Tavarez MD Primary Care Provider Encounter Details Date Type Department Care Team Description 05/10/2018 Telephone Neurology [place] [facility] Razia Mims MD [facility] [place] [address] [place] [id number] [phone] (Wo rk) Social History Tobacco Use Types Packs/Day Years Used Date Smoking Tobacco: Every Day Cigarettes 1 25 Smokeless Tobacco: Never Alcohol Use Standard Drinks/Week Comments Yes 0 (1 standard drink = 0.6 oz pure alcoho l) Very rare Sex Assigned at Date Recorded Not on file documented as of this encounter Miscellaneous Notes Telephone Encounter - Carline Don RN - 05/14/2018 2:10 PM EDT Razia Mims MD to Me ?? 6:35 PM OK, I ordered requip for her. Possible side effects include fatigue. Impulse control is also a rare side effect. She should titrate up the dose as follows. Week 1: 1 tab (0.25mg) TID Week 1: 2 tabs (0.5mg) TID Week 3: 3 tabs (0.75mg) TID Week 4: 4 tabs (1mg) TID She should check in again when at the 1mg dose or if she has any issues with the medication RJT Spoke with patient and relayed recommendations as noted. She understands and agrees with this plan. Telephone Encounter - Carline Don RN - 05/13/2018 10:04 AM EDT Message left requesting return call. Telephone Encounter - Carline Don RN - 05/10/2018 2:02 PM EST Razia Mims MD to Me ?? 05/10/18 1:06 PM If she is not having any benefit she can stop the medication. RJT Called patient and relayed recommendation as noted. Patient verbalized understanding, but she asked if there was something else that she could take to help with her shaking. She finds it very troublesome and hopes that maybe there is another medication that could try to get some relief. Telephone Encounter - Carline Don RN - 05/10/2018 1:55 PM EST Message left requesting return call. Telephone Encounter - Carline Don RN - 05/10/2018 11:02 AM EST Last Appointment: 03/11/18 Next Appointment: 07/10/18 Current Medication: Medication: Amantadine 100 mg Directions: 1 tab 2 times daily Reason for Call: Medication Update Patient report: Results: no change in symptoms Side Effects: none noted Other Concerns: Plan/Intervention/Follow Up - Report forwarded to Dr Mims for review and comment. Pt/caller aware they will be called back with input when available and to call back in the interim if additional questions or change arise before they hear back from this office. Pt/caller agreeable to this plan. Telephone Encounter - Carline Don RN - 05/10/2018 11:02 AM EST Message left requesting return call. Telephone Encounter - Diana Salazar - 05/10/2018 9:32 AM EST Clinical [place] Message Caller: Miguelina If not Pt / Relation to pt: Call back Number: [phone] Best time to reach caller: Anytime Reason for call: Medication not working Medication did not work Name of Medication: Amantadine 100mg When was the medication started: 03/11/18 Any side effects from the medication: None Additional information or questions for the nurse: Medication just hasn't worked Disposition of Call ?? Routine message sent to nurse documented in this encounter Plan of Treatment Not on filedocumented as of this encounter Visit Diagnoses Not on filedocumented in this encounter Care Teams Adobe Developer Relationship Specialty Start Date End Date Yumkio Tavarez MD PCP - General Family Medicine 07/07/16 [address] [place] [address] documented as of this encounter
--- OUTSIDE RECORDS SUMMARY | 2022-01-20 00:10 | XMS_ITS | Encounter Summary ---
:1965 Author Organization [facility] [place] [address] Care Team Providers Name Role Phone Yumiko Tavarez MD Primary Care Provider Reason for Visit Diagnostic Test (Routine) - Closed Specialty Diagnoses / Procedures Referred By Contact Refer red To Contact Radiology Diagnoses Tremors of nervous system Razia Mims MD [facility] Rad Nuclear Med Procedures NM IRMA Scan [facility] [place] [address] [place] [address] Fax: Referral ID Status Reason Start Date Expiration Date Visits V isits Requested Authorized [id number] Closed Specialty 12/18/2016 12/18/2017 3 3 Service Requested Encounter Details Date Type Department Care Team Description 01/10/2017 Hospital Encounter Nuclear Medicine at [facility] Mims Mary Hitchcock MD [facility] [place] [address] [place] [address] [phone] (Wo rk) Social History Tobacco Use Types [...] at 01/10/2017 4:30 PM Razia Mims MD [facility] [place] ORDERABLES documented in this encounter Visit Diagnoses Not on filedocumented in this encounter Care Teams Harness Racing Handicapper Relationship Specialty Start Date End Date Yumiko Tavarez MD PCP - General Family Medicine 07/07/16 [address] [place] [address] documented as of this encounter
--- OUTSIDE RECORDS SUMMARY | 2022-01-20 00:10 | XMS_ITS | Encounter Summary ---
:1965 Author Organization [facility] [place] [address] Care Team Providers Name Role Phone Yumiko Tavarez MD Primary Care Provider Encounter Details Date Type Department Care Team Description 04/01/2019 Orders Only Neurology at [facility] Razia Mims MD [facility] [place] [address] [place] [id number] [phone] (Wo rk) Social History Tobacco Use Types [...] on filedocumented in this encounter Care Teams Rigging Slinger Relationship Specialty Start Date End Date Yumiko Tavarez MD PCP - General Family Medicine 07/07/16 [address] [place] [address] documented as of this encounter
--- OUTSIDE RECORDS SUMMARY | 2022-01-20 00:11 | XMS_ITS | Encounter Summary ---
:1965 Author Organization [facility] [place] [address] Care Team Providers Name Role Phone Serafin Glass MD Primary Care Provider [phone] Encounter Details Date Type Department Care Team Description 01/23/2013 Orders Only Pain Management at [facility] Marty Nick, [facility] [place] [address] [facility] [phone] [facility] [place], [place] [address] (Wo rk) Social History Tobacco Use Types Packs/Day Years Used Date Smoking Tobacco: Never Assessed Sex Assigned at Date Recorded Not on file documented as of this encounter Plan of Treatment Not on filedocumented as of this encounter Procedures Procedure Name Priority Date/Time Associated Diagnosis Comme nts FILM LIBRARY Routine 01/23/2013 8:13 AM Results f or this STORAGE ONLY DX EST procedure ar e in SPINE the results section. documented in this encounter Results Film Library- Storage only DX Spine (01/23/2013 8:13 AM EST) Anatomical Region Laterality Modality Other Specimen (Source) Anatomical Collection Method Collection Time Re ceived Time Location / / Volume Laterality 01/23/2013 8:13 AM EST Narrative 03/16/2014 8:13 AM EST This is a Non-reportable exam Procedure Note ANTHONY, UNSIGNED REPORT - 03/16/2014Formatt ing of this note might be different from the original. This is a Non-reportable exam Marty Nick MD IMG FILM LIBRARY ORDERABLES documented in this encounter Visit Diagnoses Not on filedocumented in this encounter Care Teams Test Baker Relationship Specialty Start Date End Date Serafin Glass MD PCP - General 01/25/10 07/06/[address] [place] [address] documented as of this encounter
--- OUTSIDE RECORDS SUMMARY | 2022-01-20 00:11 | XMS_ITS | Encounter Summary ---
:1965 Author Organization [facility] [place] [address] Care Team Providers Name Role Phone Serafin Glass MD Primary Care Provider [phone] Encounter Details Date Type Department Care Team Description 02/23/2011 Orders Only Pain Management at D [facility] Marty Nick, [facility] [place] [address] [facility] [phone] [facility] [place], [place] [address] (Wo rk) Social History Tobacco Use Types Packs/Day Years Used Date Smoking Tobacco: Never Assessed Sex Assigned at Date Recorded Not on file documented as of this encounter Plan of Treatment Not on filedocumented as of this encounter Procedures Procedure Name Priority Date/Time Associated Diagnosis Comme nts FILM LIBRARY Routine 02/23/2011 8:23 AM Results f or this STORAGE ONLY MR EST procedure ar e in SPINE the results section. documented in this encounter Results Film Library- Storage only MR Spine (02/23/2011 8:23 AM EST) Anatomical Region Laterality Modality Other Specimen (Source) Anatomical Collection Method Collection Time Re ceived Time Location / / Volume Laterality 02/23/2011 8:23 AM EST Narrative 03/16/2014 8:23 AM EST This is a Non-reportable exam Procedure Note ANTHONY, UNSIGNED REPORT - 03/16/2014Formatt ing of this note might be different from the original. This is a Non-reportable exam Marty Nick MD IMG FILM LIBRARY ORDERABLES documented in this encounter Visit Diagnoses Not on filedocumented in this encounter Care Teams Paper Slitter Relationship Specialty Start Date End Date Serafin Glass MD PCP - General 01/25/10 07/06/[address] [place] [address] documented as of this encounter
--- OUTSIDE RECORDS SUMMARY | 2022-01-20 00:11 | XMS_ITS | Encounter Summary ---
:1965 Author Organization [place] [address] Care Team Providers Name Role Phone Serafin Glass MD Primary Care Provider Encounter Details Date Type Department Care Team Description 11/08/2004 Orders Only Pain Management at [facility] [place] Marty Nick, [facility] [place] [address] [facility] [phone] [facility] [place], [place] [address] (Wo rk) Social History Tobacco Use Types Packs/Day Years Used Date Smoking Tobacco: Never Assessed Sex Assigned at Date Recorded Not on file documented as of this encounter Plan of Treatment Not on filedocumented as of this encounter Procedures Procedure Name Priority Date/Time Associated Diagnosis Comme nts FILM LIBRARY Routine 11/08/2004 8:40 AM Results f or this STORAGE ONLY DX EDT procedure ar e in SPINE the results section. documented in this encounter Results Film Library- Storage only DX Spine (11/08/2004 8:40 AM EDT) Anatomical Region Laterality Modality Other Specimen (Source) Anatomical Collection Method Collection Time Re ceived Time Location / / Volume Laterality 11/08/2004 8:40 AM EDT Narrative 03/16/2014 8:40 AM EST This is a Non-reportable exam Procedure Note ANTHONY, UNSIGNED REPORT - 03/16/2014Formatt ing of this note might be different from the original. This is a Non-reportable exam Marty Nick MD IMG FILM LIBRARY ORDERABLES documented in this encounter Visit Diagnoses Not on filedocumented in this encounter Care Teams Mercury Cracking Tester Relationship Specialty Start Date End Date Serafin Glass MD PCP - General 01/25/10 07/06/[address] [place] [address] documented as of this encounter
--- OUTSIDE RECORDS SUMMARY | 2022-01-20 00:11 | XMS_ITS | Encounter Summary ---
:1965 Author Organization [facility] [place] [address] Care Team Providers Name Role Phone Unavailable Primary Care Provider Unavailable Encounter Details Date Type Department Care Team Description 06/12/2007 Hospital Encounter Radiology Library at [facility] Yumiko Tavarez MD Pain [facility] [address] [place] [address] [place] [address] [phone] Social History Tobacco Use Types Packs/Day Years Used Date Smoking Tobacco: Never Assessed Sex Assigned at Date Recorded Not on file documented as of this encounter Plan of Treatment Not on filedocumented as of this encounter Procedures Procedure Name Priority Date/Time Associated Diagnosis Comme nts FILM LIBRARY Routine 06/12/2007 12:00 AM Pain Results for this STORAGE ONLY MR EDT procedure ar e in SPINE the results section. documented in this encounter Results Film Library- Storage Only MR Spine (06/12/2007 12:00 AM EDT) Specimen (Source) Anatomical Location Collection Method / Collectio n Time Received Time / Laterality Volume Narrative SYL - 07/13/2016 2:47 PM EDT This exam is for storage only and is aut o-finalizing. Yumiko Tavarez MD IMG FILM LIBRARY ORDERABLES Performing Organization Address City/State/ZIP Code Phon e Number SYL [place], [place] documented in this encounter Visit Diagnoses Diagnosis Pain Generalized pain documented in this encounter
--- OUTSIDE RECORDS SUMMARY | 2022-01-20 00:11 | XMS_ITS | Encounter Summary ---
:1965 Author Organization [facility] [place] [address] Care Team Providers Name Role Phone Serafin Glass MD Primary Care Provider [phone] Encounter Details Date Type Department Care Team Description 12/05/2005 Orders Only Pain Management at [facility] Marty Nick, [facility] [place] [address] [facility] [phone] [facility] [place], [place] [address] (Wo rk) Social History Tobacco Use Types Packs/Day Years Used Date Smoking Tobacco: Never Assessed Sex Assigned at Date Recorded Not on file documented as of this encounter Plan of Treatment Not on filedocumented as of this encounter Procedures Procedure Name Priority Date/Time Associated Diagnosis Comme nts FILM LIBRARY Routine 12/05/2005 8:37 AM Results f or this STORAGE ONLY DX EDT procedure ar e in SPINE the results section. documented in this encounter Results Film Library- Storage only DX Spine (12/05/2005 8:37 AM EDT) Anatomical Region Laterality Modality Other Specimen (Source) Anatomical Collection Method Collection Time Re ceived Time Location / / Volume Laterality 12/05/2005 8:37 AM EDT Narrative 03/16/2014 8:37 AM EST This is a Non-reportable exam Procedure Note ANTHONY, UNSIGNED REPORT - 03/16/2014Formatt ing of this note might be different from the original. This is a Non-reportable exam Marty Nick MD IMG FILM LIBRARY ORDERABLES documented in this encounter Visit Diagnoses Not on filedocumented in this encounter Care Teams Area Counselor Relationship Specialty Start Date End Date Serafin Glass MD PCP - General 01/25/10 07/06/[address] [place] [address] documented as of this encounter
--- OUTSIDE RECORDS SUMMARY | 2022-01-20 00:11 | XMS_ITS | Encounter Summary ---
:1965 Author Organization [place] [address] Care Team Providers Name Role Phone Serafin Glass MD Primary Care Provider [phone] Encounter Details Date Type Department Care Team Description 07/23/2012 Orders Only Pain Management at [facility] Marty Nick, [facility] [place] [address] [facility] [phone] PA[facility] [place], [place] [address] (Wo rk) Social History Tobacco Use Types Packs/Day Years Used Date Smoking Tobacco: Never Assessed Sex Assigned at Date Recorded Not on file documented as of this encounter Plan of Treatment Not on filedocumented as of this encounter Procedures Procedure Name Priority Date/Time Associated Diagnosis Comme nts FILM LIBRARY Routine 07/23/2012 8:11 AM Results f or this STORAGE ONLY DX EDT procedure ar e in SPINE the results section. documented in this encounter Results Film Library- Storage only DX Spine (07/23/2012 8:11 AM EDT) Anatomical Region Laterality Modality Other Specimen (Source) Anatomical Collection Method Collection Time Re ceived Time Location / / Volume Laterality 07/23/2012 8:11 AM EDT Narrative 03/16/2014 8:11 AM EST This is a Non-reportable exam Procedure Note ANTHONY, UNSIGNED REPORT - 03/16/2014Formatt ing of this note might be different from the original. This is a Non-reportable exam Marty Nick MD IMG FILM LIBRARY ORDERABLES documented in this encounter Visit Diagnoses Not on filedocumented in this encounter Care Teams Director Of Infection Prevention Relationship Specialty Start Date End Date Serafin Glass MD PCP - General 01/25/10 07/06/[address] [place] [address] documented as of this encounter
--- OUTSIDE RECORDS SUMMARY | 2022-01-20 00:11 | XMS_ITS | Encounter Summary ---
:1965 Author Organization [place] [address] Care Team Providers Name Role Phone Serafin Glass MD Primary Care Provider [phone] Encounter Details Date Type Department Care Team Description 01/12/2011 Orders Only Pain Management at [facility] [place] Marty Nick, [facility] [place] [address] [facility] [phone] PA[facility] [place], [place] [address] (Wo rk) Social History Tobacco Use Types Packs/Day Years Used Date Smoking Tobacco: Never Assessed Sex Assigned at Date Recorded Not on file documented as of this encounter Plan of Treatment Not on filedocumented as of this encounter Procedures Procedure Name Priority Date/Time Associated Diagnosis Comme nts FILM LIBRARY Routine 01/12/2011 8:33 AM Results f or this STORAGE ONLY DX EST procedure ar e in SPINE the results section. documented in this encounter Results Film Library- Storage only DX Spine (01/12/2011 8:33 AM EST) Anatomical Region Laterality Modality Other Specimen (Source) Anatomical Collection Method Collection Time Re ceived Time Location / / Volume Laterality 01/12/2011 8:33 AM EST Narrative 03/16/2014 8:33 AM EST This is a Non-reportable exam Procedure Note ANTHONY, UNSIGNED REPORT - 03/16/2014Formatt ing of this note might be different from the original. This is a Non-reportable exam Marty Nick MD IMG FILM LIBRARY ORDERABLES documented in this encounter Visit Diagnoses Not on filedocumented in this encounter Care Teams Seasonal Delivery Driver Relationship Specialty Start Date End Date Serafin Glass MD PCP - General 01/25/10 07/06/[address] [place] [address] documented as of this encounter
--- OUTSIDE RECORDS SUMMARY | 2022-01-20 00:11 | XMS_ITS | Encounter Summary ---
:1965 Author Organization [facility] [place] [address] Care Team Providers Name Role Phone Serafin Glass MD Primary Care Provider [phone] Encounter Details Date Type Department Care Team Description 02/09/2011 Orders Only Pain Management at [facility] Marty Nick, [facility] [place] [address] [facility] [phone] PA[facility] [place], [place] [address] (Wo rk) Social History Tobacco Use Types Packs/Day Years Used Date Smoking Tobacco: Never Assessed Sex Assigned at Date Recorded Not on file documented as of this encounter Plan of Treatment Not on filedocumented as of this encounter Procedures Procedure Name Priority Date/Time Associated Diagnosis Comme nts FILM LIBRARY Routine 02/09/2011 8:26 AM Results f or this STORAGE ONLY MR EST procedure ar e in SPINE the results section. documented in this encounter Results Film Library- Storage only MR Spine (02/09/2011 8:26 AM EST) Anatomical Region Laterality Modality Other Specimen (Source) Anatomical Collection Method Collection Time Re ceived Time Location / / Volume Laterality 02/09/2011 8:26 AM EST Narrative 03/16/2014 8:26 AM EST This is a Non-reportable exam Procedure Note ANTHONY, UNSIGNED REPORT - 03/16/2014Formatt ing of this note might be different from the original. This is a Non-reportable exam Marty Nick MD IMG FILM LIBRARY ORDERABLES documented in this encounter Visit Diagnoses Not on filedocumented in this encounter Care Teams Rn Nursery Relationship Specialty Start Date End Date Serafin Glass MD PCP - General 01/25/10 07/06/[address] [place] [address] documented as of this encounter
--- OUTSIDE RECORDS SUMMARY | 2022-01-20 00:11 | XMS_ITS | Encounter Summary ---
:1965 Author Organization [facility] [place] [address] Care Team Providers Name Role Phone Serafin Glass MD Primary Care Provider Encounter Details Date Type Department Care Team Description 03/17/2014 Office Visit Pain Management at [facility] onic pain syndrome Liz Isaac MD [facility] [address] [place] [facility] [address] [place] [address] [phone] Social History Tobacco Use Types Packs/Day Years Used Date Smoking Tobacco: Every Day Cigarettes 0.5 25 Smokeless Tobacco: Never Sex Assigned at Date Recorded Not on file documented as of this encounter Last Filed Vital Signs Vital Sign Reading Time Taken Comments Blood Pressure 135/94 03/17/2014 11:24 AM EST Pulse 113 03/17/2014 11:24 AM EST Temperature - - Respiratory Rate - - Oxygen Saturation 99% 03/17/2014 11:24 AM EST Inhaled Oxygen Concentration - - Weight 69.9 kg (154 lb) 03/17/2014 11:24 AM EST Height 149.9 cm (4' 11) 03/17/2014 11:24 AM EST Body Mass Index 31.1 03/17/2014 11:24 AM EST documented in this encounter Progress Notes Marty Nick MD - 03/17/2014 12:02 PM EST I am seeing Ms. Salcedo at the request of Dr. Serafin Glass for recommendations regarding her chronic pain syndrome. Thanks so much Dr. Glass for allowing me to participate in the care of Ms. Miguelina Salcedo who, as you know, is a 49-year-old woman with a chief complaint of pain in her low back and her thoracic spine. Additionally, she told me she had pain in her leg as well, but later corrected me and stated she had no pain in her legs, but she does have sharp pain in her bilateral feet. She apparently had an episode in 2004 when she had seizures for approximately two and a half years and I may have gotten the date wrong, but during this period of time she sustained multiple vertebral compression fractures while she was seizing. She states she no long has epilepsy and never had a problem with epilepsy prior to those two years. She states also that in the she used cocaine on one occasion and had a seizure during that one occasion. Her pain on average is a 6 or 7 on a 0 to 10 verbal numerical scale; at its worst, it is a 7; at its least, it is a 6. She states that when she was on higher dose methadone and approximately three or four months ago she was on 90 mg a day of methadone, her average pain was a 4 or 5, so was a little bit better, but not much better, and she states that functionally she really was no better on the higher dose of methadone either. She states that she lives on the third floor and that the stairs are outdoors and that her ability to get in and out of her home was no better when she was on a high dose of methadone than the dose she is on now. She was originally treated by pain care and then came under the care of Natalia Monge at [facility] who took over prescribing her opioids, but was weaning her down and it seems like she went from 90 mg a day to 80 mg a day under the care of Ms. Monge. Had a fall at the same time, however, and was started on oxycodone 15 mg three times a day. Ms. Monge than became unavailable and she followed up with Dr. Glass who has been involved in her care, she tells me, for about 30 years. We felt that her opioid dose was too high and was out of the range of opioids that he prescribes in his practice and kept her on 30 mg a day rather than 80 mg a day and I completely agree with him and support this decision. When I was reviewing the records for Ms. Salcedo before my visit today and I thought that she was still on the 90 mg a day, my plan was to reduce her down to 30 mg a day. Social history is as mentioned. She lives alone in [place], [place]. She has no prior history of alcoholism or drug abuse she tells me except for the single episode of cocaine use. She smokes half a pack of cigarettes per day. She is currently disabled because of her back pain. Her past medical history in addition to what has already mentioned is significant for GERD, anxiety, depression, and panic disorder. Her epilepsy, she states, began when she was about 38 and went away when she was about 40. REVIEW OF SYSTEMS: Twelve systems were reviewed and there were many positives. She describes her mood as good. She walks using a walker and she is using a walker today. She has tremors in her lower extremities which have been unexplained despite visits to many neurologists. FAMILY HISTORY: Her mom at the age of 58 from alcoholism. Her dad at the age of 70 from lung cancer. PAST SURGICAL HISTORY: She has had vertebroplasty at T11, T12, and L1 done by Dr. Agustin and she was seen by Dr. Iain gray at [facility] at about the same time in 2004. PHYSICAL EXAMINATION: On physical examination, she is sitting in a very crooked posture holding onto her walker with her bilateral lower extremities shaking. She wants to show me her right foot and she does have what look like dark age spots on her right foot which were not present on the left foot and I really cannot explain this, but there is no other difference. I asked her to get up and walk and she walks with tremendous difficulty with dramatic tremors of her lower extremities. These tremors resolved as she made her way back to the chair after I was no longer examining her and when she sat in her chair they were much less prominent than they were when I was paying attention to them. Examination of her spine reveals dramatic tenderness over the spinous processes of really the entirety of her thoracic spine and lumbar spine. There are few areas where she does not appear that she is going to fall down when I apply moderate pressure, but these areas are very prevalent in this area and she does have similar pain in the paravertebral tissue. Her sclerae are nonicteric. Her neck is supple. Her throat is clear. She has normal hearing to finger rub bilaterally. Auscultation of the heart reveals a regular rate and rhythm. Her lungs are clear to auscultation. Her abdomen is soft and nontender, and she has had many examinations over the years and I did not conduct a further physical exam. There were no abnormal skin lesions except for what I mentioned. ASSESSMENT: Chronic pain syndrome, etiology unclear. It is very unusual to have pain from the vertebral compression fractures that lasts this long and almost always resolves spontaneously on its own over the course of about a year. She does have symptom amplification on physical examination and this tremor which I cannot explain, but seem to resolve with lack of attention. Her diagnosis is chronic pain syndrome, etiology unclear. PLAN: I have advised her that I would not recommend increasing the opioids at all. I asked her what she would be like without the methadone that she is using right now and she stated that she did not really think she would be much different and I questioned whether or not we should take her off of the methadone that she is on, but she was reluctant to want to do that. I would not add any opioids as I mentioned and I think Dr. Glass management was exemplary. 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 These are the same suggestions that were made by Kena Mallory when Ms. Mallory saw her years ago as well and she was reluctant to accept those at that time either. I reviewed the [place] Prescription Monitoring Program database today and her database supports the history as I have described above. I wish I had more to offer her, but unfortunately I do not. She is a complex patient. I do not think opioids are the solution. We briefly discussed medical cannabis and I described to her that I do not have the mari annmarie physician-patient relationship with her, but I might be willing to prescribe a trial of cannabis for her if she comes back and sees me in six months and still has the same symptoms. I am not scheduling her for a followup visit. documented in this encounter Plan of Treatment Not on filedocumented as of this encounter Visit Diagnoses Diagnosis Chronic pain syndrome documented in this encounter Care Teams Grout Machine Operator Relationship Specialty Start Date End Date Serafin Glass MD PCP - General 01/25/10 07/06/16 [address] [place] [address] documented as of this encounter
--- OUTSIDE RECORDS SUMMARY | 2022-01-20 00:11 | XMS_ITS | Encounter Summary ---
:1965 Author Organization [facility] [place] [address] Care Team Providers Name Role Phone Yumiko Tavarez MD Primary Care Provider Reason for Referral Diagnostic Test (Routine) - Closed Specialty Diagnoses / Procedures Referred By Contact Refer red To Contact Radiology Diagnoses Razia Hutchison MD [facility] Rad Mri Procedures MRI Brain wo Contrast [facility] [place] [address] [place] [address] Referral ID Status Reason Start Date Expiration Date Visits V isits Requested Authorized [id number] Closed Specialty 11/07/2016 02/05/2017 1 1 Service Requested Reason for Visit Consultation (Routine) - Closed Specialty Diagnoses / Procedures Referred By Contact Refer red To Contact Neurology Diagnoses 51 yo lady with difficulty walking. She has a chorieform and dancing gait and has a lot of chorieform movements. MRI spine shows old fractures. There is no family history of chorea to suggest [place]acken Terence Montgomery MD Lee, Stephen L, MD disease. No strep infection to suggest S ydenham's chorea. [facility] [address] [place] [place] [address] [place] [address] Fax: Referral ID Status Reason Start Date Expiration Date Visits V isits Requested Authorized [id number] Closed Consult, 07/07/2016 07/07/2017 1 1 [facility] Encounter Details Date Type Department Care Team Description 11/03/2016 Office Visit Neurology at [facility] Razia Mims MD [facility] [place] [address] [place] [address] [phone] (Wo rk) Social History Tobacco Use Types [...] Sign Reading Time Taken Comments Blood Pressure 115/76 11/03/2016 3:19 PM EDT Pulse 89 11/03/2016 3:19 PM EDT Temperature - - Respiratory Rate - - Oxygen Saturation - - Inhaled Oxygen Concentration - - Weight 55.8 kg (123 lb) 11/03/2016 3:19 PM EDT Height 148.6 cm (4' 10.5) 11/03/2016 3:19 PM EDT repor gardenia Body Mass Index 25.27 11/03/2016 3:19 PM EDT documented in this encounter Progress Notes Razia Mims MD - 11/03/2016 3:30 PM EDT [facility] New Patient Evaluation Date of service 11/03/2016 Referring provider Terence Montgomery MD [address] [address] [place] [address] Cc: involuntary movements History of present illness Miguelina Salcedo is a 51 y.o. right handed woman who presents to the movement disorders clinic for evaluation of abnormal involuntary movements. Miguelina tells me that in about 2003 [...] Family says she asks questions multiple times. Her parents at ages 58 (mother) and [...] Chronic pain syndrome G89.4 ??? 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 cyanocobalamin 1,000 mcg Tablet, Take 1,000 mcg by mouth daily., Disp: , Rfl: ??? calcium carbonate (TUMS) 200 mg calcium (500 mg) Tablet, Chewable, Take 1 tablet by mouth 2 times daily., Disp: , Rfl: ??? cholecalciferol, Vitamin D3, 50,000 unit Capsule, Take 50,000 Units by mouth once a week., Disp:, Rfl: ??? DENOSUMAB (PROLIA SUBQ), Inject subcutaneously. Indications: Every 6 months, Disp: , Rfl: ??? cyclobenzaprine (FLEXERIL) 10 mg Tablet, Take 10 mg by mouth 3 times daily as needed for Muscle spasms., Disp: , Rfl: ??? zolpidem (AMBIEN) 10 [...] LAPAROSCOPIC ??? VERTEBROPLASTY Social History: Lives in [place], she is retired from [employer] Family History Problem Relation Age of Onset ??? Tremor Father ??? Mental Illness Father ??? Cancer Mother ??? Depression Mother ??? Alcohol Abuse Mother Review of Systems - All others negative except forgetfulness, back pain, difficulty walking, near falls Physical Exam Vitals: 11/03/16 1519 BP: 115/76 Pulse: 89 General: the patient appears stated age, not in any acute distress, well groomed, Body mass index is25.27 kg/(m^2). HEENT: normal cephalic atraumatic, eye conjunctiva moist with no abnormal discharge, no abnormal nasal discharge Voice/language: no vocal tremor but there is mild dysarthria. Normal fluency, comprehension, naming and repetition Cardiovascular: pulses palpable and symmetrical throughout Skin: no lesions or abrasions on exposed surfaces Neck: full ROM Extremities: full ROM and no visible deformities Mental status: oriented to place, self, date and reason for visit Cranial Nerves: I: not tested II: PERRL III, IV, : EOMI, normal saccades and pursuit. Normal but difficulty holding upward gaze. V: facial sensation normal bilaterally VII: face symmetrical to voluntary movements and expressions VIII: hearing test by calibrated finger rub auditory screening test (CALFRAST) was normal IX, X, XII: swallowing normal, soft palette with normal rise, uvula visible in midline, tongue protrusion in midline XI: SCM 5/5 strength bilaterally Strength: 5/5 strength throughout Reflexes: 2/4 symmetrical throughout except as noted below (no clonus, no hung or pendular reflexes) Plantar responses were flexor bilaterally Coordination: Finger to nose: bilateral dysmetria Gait: Patient stood up without pushing off, normal base and stance, normal arm swing, steady turns, toe and heel walking normal, normal line of ambulation and tandem gait normal (10 or more tandem steps without side step) Additional movement disorder specific findings: UHDRS score 11 (6 points chorea) 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 As early as 2003 she had some issues with walkingand was told she had chorea. She used a cane up until about 1 year ago and recently had to stop because she was tripping over it which is consistent with chorea. Her exam is variable over the hour thatI spent with her sometimes the movements are calm but when she gets distracted there is a good amount of random non purposeful movements in the mouth, trunk and extremities. UHDRS score today is 11. Her family history is significant for a father who spent time in a psychiatric hospital and had involuntary facial movements (could be tardive dyskinesia, chorea or edentulous oral dyskinesia). Her motherdied at age 58 with problems related to alcoholism. Miguelina's two sisters do not have any similar movements. The differential remains broad. The first phase of work up will consist of MRI brain, HD genetic test (extensive child guidance counselor given) and additional labs listed above. Plan: - labs including HD genetic testing - MRI brain - follow up in 2 months This was my initial visit with the patient. I spent 60 minutes with the patient and more than 30 minutes were spent discussion as reflected above Razia Mims MD [facility] documented in this encounter Plan of Treatment Not on filedocumented as of this encounter Results MRI Brain wo Contrast [...] study. Razia Mims MD IMG MRI ORDERABLES Lyme IgG & IgM Antibody (11/20/2016 1:49 PM EDT) athologist Signature Lyme Screening Neg Neg [facility] Antibody [facility] Specimen Anatomical Collection Method Collection Time Receive d Time (Source) Location / / Volume Laterality Blood specimen 11/20/2016 1:49 PM 017 8:31 (specimen) EDT AM EDT Resulting Agency Comment Spec In Lab Razia Mims MD IMMUNOLOGY ORDERABLES Performing Organization Address City/State/[place] [address] Ceruloplasmin (11/20/2016 1:49 PM EDT) athologist Signature Ceruloplasmin 37.5 16.0 - [facility] 45.0 mg/dL [facility] Specimen Anatomical Collection Method Collection Time Receive d Time (Source) Location / / Volume Laterality Blood specimen 11/20/2016 1:49 PM 017 2:01 (specimen) EDT PM EDT Resulting Agency Comment Spec In Lab Razia Mims MD CHEMISTRY ORDERABLES Performing Organization Address City/[facility]/ZIP [place] [address] Miscellaneous Lab request (11/20/2016 1:49 PM EDT) Patholo gist Method Time Signature Misc Lab Request [place] Result received in [facility] Specimen Anatomical Collection Method Collection Time Receive d Time (Source) Location / / Volume Laterality Blood specimen 11/20/2016 1:49 PM 017 2:01 (specimen) EDT PM EDT Resulting Agency Comment Spec In Lab Razia Mims MD HEMATOLOGY ORDERABLES Performing Organization Address City/[facility]/ZIP [place] [address] Streptococcal Antibody Panel (11/20/2016 1:49 PM EDT) P athologist Signature ASO Titer 44 0 - 530 [place] IU/mL [facility] Comment: Test Performed by: [facility] [address] [place] [address] DNase B Ab <74 0 - 300 unit/mL [facility] Comment: Test Performed by: [facility] - [address] [address] Specimen Anatomical Collection Method Collection Time Receive d Time (Source) Location / / Volume Laterality Blood specimen 11/20/2016 1:49 PM 017 4:01 (specimen) EDT PM EDT Resulting Agency Comment Spec In Lab Razia Mims MD IMMUNOLOGY ORDERABLES Performing Organization Address City/[facility]/ZIP [place] [address] C4 Complement (11/20/2016 1:49 PM EDT) P athologist Signature C4 Complement 27 10 - 40 [place] mg/dL [facility] Specimen Anatomical Collection Method Collection Time Receive d Time (Source) Location / / Volume Laterality Blood specimen 11/20/2016 1:49 PM 017 2:01 (specimen) EDT PM EDT Resulting Agency Comment Spec In Lab Razia Mims MD CHEMISTRY ORDERABLES Performing Organization Address City/State/ZIP Code Phon e Number [address] C3 Complement (11/20/2016 1:49 PM EDT) P athologist Signature C3 Complement 119 90 - 180 [facility] mg[facility]dL [facility] Specimen Anatomical Collection Method Collection Time Receive d Time (Source) Location / / Volume Laterality Blood specimen 11/20/2016 1:49 PM 017 2:01 (specimen) EDT PM EDT Resulting Agency Comment Spec In Lab Razia Mims MD CHEMISTRY ORDERABLES Performing Organization Address City/[facility]/ZIP Code Phon e Number [address] T4, free (11/20/2016 1:49 PM EDT) P athologist Signature Free T4 1.04 0.93 - 1.70 [place] ng/dL [facility] Specimen Anatomical Collection Method Collection Time Receive d Time (Source) Location / / Volume Laterality Blood specimen 11/20/2016 1:49 PM 017 2:01 (specimen) EDT PM EDT Resulting Agency Comment Spec In Lab Razia Mims MD CHEMISTRY ORDERABLES Performing Organization Address City/State/ZIP Code Phon e Number [address] ARMEN (11/20/2016 1:49 PM EDT) P athologist Signature ARMEN Neg Neg [facility] Specimen Anatomical Collection Method Collection Time Receive d Time (Source) Location / / Volume Laterality Blood specimen 11/20/2016 1:49 PM 017 7:30 (specimen) EDT AM EDT Resulting Agency Comment Spec In Lab Razia Mims MD IMMUNOLOGY ORDERABLES Performing Organization Address City/State/[place] [address] Cardiolipin Antibody Screen (11/20/2016 1:49 PM EDT) athologist Signature Cardiolipin IgG <23 <=22 GPL [facility] unit(s) [facility] Comment: Ranges ? GPL ------- ? ------ Normal ?<23 Low Positive ? 23-35 Moderate Positive ?36 -50 High Positive ? >5 0 Cardiolipin IgM <11 <=10 MPL unit(s) [facility] Comment: Ranges ?MPL ----- ?----- Normal ?<11 Low Positive ? 11-20 Moderate Positive ?21 -30 High Positive ? >3 0 Specimen Anatomical Collection Method Collection Time Receive d Time (Source) Location / / Volume Laterality Blood specimen 11/20/2016 1:49 PM 017 7:30 (specimen) EDT AM EDT Resulting Agency Comment Spec In Lab Razia Mims MD IMMUNOLOGY ORDERABLES Performing Organization Address [facility]/ZIP [place] [address] (ABNORMAL) Comprehensive metabolic panel (non-fasting) (11/20/2016 1:49 PM EDT) P athologist Signature Glucose Lvl 85 65 - 199 [facility] mg/dL [facility] Comment: Diabetes: >=200 mg/dL plus symp toms BUN 18 8 - 18 mg/dL [facility] Creatinine 1.12 0.70 - 1.20 mg/dL [facility] Comment: Please note that the pediatric reference intervals supplied above were not validated at [facility]. Results from pediatri c patients should be interpreted in conjunction to the patient's age, height and muscle mass. Sodium 141 135 - 145 mmol/L [facility] Potassium 3.8 3.5 - 5.0 mmol/L [facility] Comment: Please note: ??Patients with WBC >100,00 0 may have falsely elevated Potassium levels. ??For accurate Potassium quantif ication in these patients send serum separator tube (gold top) for subsequent determinations. ??Contact the Clinical Chemistry Laboratory if there are any qu estions. Chloride 99 98 - 107 mmol/L [facility] CO2 31 22 - 31 mmol/L [facility] Anion Gap 11 5 - 15 mmol/L [facility] Calcium 9.6 8.5 - 10.5 mg/dL [facility] Total Protein 7.5 6.1 - 8.0 gm/dL [facility] Albumin 4.2 3.2 - 5.2 gm/dL [facility] AST 17 0 - 30 unit/L [facility] ALT 11 0 - 30 unit/L [facility] Alk Phos 53 40 - 104 unit/L [facility] Total Bilirubin 0.2 0.2 - 1.3 mg/dL [facility] Estimated GFR 51 (L) >=60 [facility] Comment: This estimated GFR (eGFR) [...] the following links into your internet browser. [email or web address] [email or web address] Specimen Anatomical Collection Method Collection Time Receive d Time (Source) Location / / Volume Laterality Blood specimen 11/20/2016 1:49 PM 017 2:01 (specimen) EDT PM EDT Resulting Agency Comment Spec In Lab Razia Mims MD CHEMISTRY ORDERABLES Performing Organization Address City/State/ZIP Code Phon e Number [place] [phone] documented in this encounter Visit Diagnoses Diagnosis Chorea Other choreas Chorea Other choreas documented in this encounter Care Teams Zoo Keeper Relationship Specialty Start Date End Date Yumiko Tavarez MD PCP - General Family Medicine 07/07/16 [address] [place] [address] documented as of this encounter
--- OUTSIDE RECORDS SUMMARY | 2022-01-20 00:11 | XMS_ITS | Encounter Summary ---
:1965 Author Organization [facility] [place] [address] Care Team Providers Name Role Phone Serafin Glass MD Primary Care Provider [phone] Encounter Details Date Type Department Care Team Description 01/23/2013 Orders Only Pain Management at [facility] Marty Nick, [facility] [place] [address] [facility] [phone] [facility] [place], [place] [address] (Wo rk) Social History Tobacco Use Types Packs/Day Years Used Date Smoking Tobacco: Never Assessed Sex Assigned at Date Recorded Not on file documented as of this encounter Plan of Treatment Not on filedocumented as of this encounter Procedures Procedure Name Priority Date/Time Associated Diagnosis Comme nts FILM LIBRARY- Routine 01/23/2013 8:18 AM Results for this STORAGE ONLY DXA EST procedure a re in IMAGES the results section. documented in this encounter Results Film Library- storage only dexa images (01/23/2013 8:18 AM EST) Anatomical Region Laterality Modality Other Specimen (Source) Anatomical Collection Method Collection Time Re ceived Time Location / / Volume Laterality 01/23/2013 8:18 AM EST Narrative 03/16/2014 8:19 AM EST This is a Non-reportable exam Procedure Note ANTHONY, UNSIGNED REPORT - 03/16/2014Formatt ing of this note might be different from the original. This is a Non-reportable exam Marty Nick MD IMG FILM LIBRARY ORDERABLES documented in this encounter Visit Diagnoses Not on filedocumented in this encounter Care Teams Field Tax Auditor Relationship Specialty Start Date End Date Serafin Glass MD PCP - General 01/25/10 07/06/[address] [place] [address] documented as of this encounter
--- OUTSIDE RECORDS SUMMARY | 2022-01-20 00:12 | XMS_ITS | Clinical Summary ---
:1965 Author Organization [facility] Address [address] [place] [address] Care Team Providers Name Role Phone Yumiko Tavarez MD Primary Care Provider Allergies Active Allergy Reactions Severity Noted Date Comments Antihistamines - Alkylamine 02/23/2020 Gabapentin 02/23/2020 Mirtazapine 02/23/2020 Procaine 02/23/2020 Medications Medication Sig Dispensed Refills Start Date End Date Status calcium carbonate (TUMS) Take 2 Tabs by 0 Active 200 mg calcium (500 mg) mouth 2 times tablet,chewable daily. cholecalciferol (VITAMIN Take 50,000 0 Active D3) 1,250 mcg (50,000 Units by mouth unit) capsule once a week. cyanocobalamin 1,000 mcg Take 1,000 mcg 0 Active tablet by mouth daily. folic acid (FOLVITE) 1 Take 1 mg by 0 Active mg tablet mouth daily. naloxone (NARCAN) 4 1 [place] by 0 Active mg/actuation nasal spray nasal route as needed. omeprazole (PRILOSEC) 20 Take 20 mg by 0 12/17/2019 Active mg capsule mouth every morning. oxyCODONE-acetaminophen Take 1 Tab by 0 Active (PERCOCET) 10-325 mg per mouth every 6 tablet hours. pregabalin (LYRICA) 50 TK ONE C PO D. 0 02/02/2020 Active mg capsule TAKE IN THE MORNING WITH 150 MG TO EQUAL 200 MG pregabalin (LYRICA) 150 TK ONE C PO BID 0 02/02/2020 Active mg capsule zolpidem (AMBIEN) 10 mg Take 10 mg by 0 Active tablet mouth. clonazePAM (KLONOPIN) 1 Take 1.5 120 Tablet 5 12/14/2021 Active mg tablet Tablets by mouth 2 times daily AND 1 Tablet daily. Daily Max: 4 mg. Active Problems Problem Noted Date Tardive dyskinesia 05/26/2020 Functional neurological symptom disorder with abnormal movement 05/26/2020 Anxiety 05/26/2020 Involuntary movements 02/24/2020 Tremor 02/24/2020 PTSD (post-traumatic stress disorder) 02/24/2020 Peripheral neuropathy 02/24/2020 Encounters Date Type Specialty Care Team Description 12/09/2021 Telephone Neurology Alta Thakkar MD Medication Management from Last 3 Months Social History Tobacco Use Types Packs/Day Years Used Date Smoking Tobacco: Every Day Cigarettes 1 25 Smokeless Tobacco: Never Sex Assigned at Date Recorded Not on file Obstetrics History Last Filed Vital Signs Vital Sign Reading Time Taken Comments Blood Pressure 114/68 02/23/2020 1318 EST Pulse 80 02/23/2020 1318 EST Temperature - - Respiratory Rate 16 02/23/2020 1318 EST Oxygen Saturation 100% 02/23/2020 1318 EST Inhaled Oxygen Concentration - - Weight 66.9 kg (147 lb 6.4 oz) 02/23/2020 1318 EST Height 149.9 cm (4' 11) 02/23/2020 1318 EST Body Mass Index 29.77 02/23/2020 1318 EST Plan of Treatment Upcoming Encounters Date Type Specialty Care Team Description 03/02/2022 Telemedicine Neurology Alta Thakkar M D 1 [facility], Level [address] [place], [place] [address] (Wo rk) Health Maintenance Due Date Last Done Comments Hepatitis C Screen 1965 Lung Cancer Screening 1965 COVID-19 Vaccine (#1) 1965 Pneumococcal Immunization (1 - PCV) 1971 Insurance Payer Benefit Plan / Subscriber ID Effective Dates Phone Addre ss Type Group UMR UMR [id number] 2020-Present [address] [place] [address] [place],Miguelina Personal/Famil Self 1965 [address] [facility] [place] [address] [place],Miguelina Personal/Famil Self 1965 [address] [place] [address] [place],Miguelina Personal/Famil Self 1965 [address] [facility] [place] [address] [place],Miguelina Personal/Famil Self 1965 [address] [place] [address] [place],Miguelina Personal/Famil Self 1965 [address] (Home) [facility] [place] [address] [place],Miguelina Personal/Famil Self 1965 [address] (Home) [facility] [place] [address] [place],Miguelina Personal/Famil Self 1965 [address] (Home) [facility] [place] [address] Care Teams Insole Bottom Filler Relationship Specialty Start Date End Date Yumiko Tavarez MD PCP - General 12/29/19 [place] [phone]
--- OUTSIDE RECORDS SUMMARY | 2022-01-20 00:12 | XMS_ITS | Encounter Summary ---
:1965 Author Organization [facility] Address [address] [place] [address] Care Team Providers Name Role Phone Yumiko Tavarez MD Primary Care Provider Reason for Visit Reason Onset Date Comments Medications Refill 09/16/2021 Encounter Details Date Type Department Care Team Description 09/16/2021 Refill [facility] Alta Thakkar MD Medications Refill [facility] 1 [facility], [address] [place], [place] [id number] [place] [address] [phone] (Wo rk) Social History Tobacco Use Types Packs/Day Years Used Date Smoking Tobacco: Every Day Cigarettes 1 25 Smokeless Tobacco: Never Sex Assigned at Date Recorded Not on file documented as of this encounter Ordered Prescriptions Prescription Sig Dispensed Refills Start Date End Date clonazePAM (KLONOPIN) 1 Take 1.5 Tablets by 90 Tablet 5 10/12/2021 mg tablet mouth 2 times daily. Daily Max: 3 mg documented in this encounter Miscellaneous Notes Telephone Encounter - Cristel Doss RN - 09/16/2021 1101 EDT Medication Rx Request Medication: Clonazepam 1 mg Last Visit in login department: 05/19/2021 Next appointment Scheduled: 12/01/2021 Date previous Rx written: 08/15/2021 VPMS Inquiry needed? The [place] Prescription Monitoring System query has been completed per the following requirement(s): Annual Verification. If yes, date of last fill: 08/16/2021 Documentation Reviewed, prescription pended to provider for review & signature. RX pended to provider, previous pharmacy is now closed and unable to access refills. Telephone Encounter - Naye Lara - 09/16/2021 1049 EDT Miguelina called in this morning needing a refill called in for her. Her normal pharmacy is closed and she is out of medication. The medication is for, Medication Refill Medication(s) Requested: clonazePAM (KLONOPIN) 1 mg tablet Pharmacy (reconcile pharmacy list): [id number] - [place], [place] - [address] [place] [address] Is patient out of medication? Yes Picking up/mailing (location)/calling in/eprescribe? E-prescribe 30 day supply/90 day supply? 90 day Please call the patient with any questions. Thank you documented in this encounter Plan of Treatment Upcoming Encounters Date Type Specialty Care Team Description 03/02/2022 Telemedicine Neurology Alta Thakkar M D 1 [facility] 2 [place], [place] [phone] (Wo rk) documented as of this encounter Visit Diagnoses Not on filedocumented in this encounter Discontinued Medications Medication Sig Discontinue Reason Start Date End Date clonazePAM (KLONOPIN) 1 Take 1.5 Tablets by Reorder 08/15/2021 09/16/2021 mg tablet mouth 2 times daily. Daily Max: 3 mg documented as of this encounter Care Teams Upstairs Maid Relationship Specialty Start Date End Date Yumiko Tavarez MD PCP - General 12/29/19 [address] [place] [phone] documented as of this encounter
--- OUTSIDE RECORDS SUMMARY | 2022-01-20 00:12 | XMS_ITS | Encounter Summary ---
:1965 Author Organization [facility] Address [address] [place] [address] Care Team Providers Name Role Phone Yumiko Tavarez MD Primary Care Provider Reason for Visit Reason Onset Date Comments Appointment Related 08/15/2021 Encounter Details Date Type Department Care Team Description 08/15/2021 Telephone [facility] Alta Thakkar MD Appointment Related Neurology - [address] [facility] 1 [place] [address] [facility], [place] [address] (Wo rk) Social History Tobacco Use Types Packs/Day Years Used Date Smoking Tobacco: Every Day Cigarettes 1 25 Smokeless Tobacco: Never Sex Assigned at Date Recorded Not on file documented as of this encounter Miscellaneous Notes Telephone Encounter - Meme Lemus - 08/15/2021 1658 EDT /Outreached Miguelina cancelled the FOLLOW UP ON-SITE appointment with Dr. Thakkar on Sunday Rescheduled to at 4:00 PM. Telephone Encounter - Geraldo Kwon - 08/15/2021 1027 EDT Pt is asking that we check with the MD before rescheduling, onsite openings are booked out to December. Pt is wondering if we can do a video appt for the next appt. Pt wants to convert the existing appt if possible so she does not have to wait for a reschedule. Please contact pt. documented in this encounter Plan of Treatment Upcoming Encounters Date Type Specialty Care Team Description 03/02/2022 Telemedicine Neurology Alta Thakkar M D 1 [facility] 2 [place], [place] [phone] (Wo rk) documented as of this encounter Visit Diagnoses Not on filedocumented in this encounter Care Teams Insurance Billing Clerk Relationship Specialty Start Date End Date Yumiko Tavarez MD PCP - General 12/29/19 [address] [place] [phone] documented as of this encounter
--- OUTSIDE RECORDS SUMMARY | 2022-01-20 00:12 | XMS_ITS | Encounter Summary ---
:[address] [facility] Address [address] [place] [address] Care Team Providers Name Role Phone Yumiko Tavarez MD Primary Care Provider Reason for Visit Reason Onset Date Comments Medication Management 08/15/2021 Encounter Details Date Type Department Care Team Description 08/15/2021 Telephone [facility] Alta Thakkar MD Medication Management Neurology - [address] [address] [place], [place] [phone] (Wo rk) Social History Tobacco Use Types Packs/Day Years Used Date Smoking Tobacco: Every Day Cigarettes 1 25 Smokeless Tobacco: Never Sex Assigned at Date Recorded Not on file documented as of this encounter Ordered Prescriptions Prescription Sig Dispensed Refills Start Date End Date clonazePAM (KLONOPIN) 1 Take 1.5 Tablets by 90 Tablet 5 09/16/2021 mg tablet mouth 2 times daily. Daily Max: 3 mg documented in this encounter Miscellaneous Notes Telephone Encounter - Carline Trimble RN - 08/18/2021 1248 EDT TC to patient. 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 No other questions or concerns. Telephone Encounter - Carline Trimble RN - 08/15/2021 1426 EDT Images from the original note were not included. Alta Thakkar MD Neuro Move Choke Setter; Meme Lemus 1 hour ago (12:45) We can try a higher dose - I will send in a new script. Since she has the 0.5mg tablets - she can take 3 twice a day. The new script will be 1mg tablets - so once she switched it will be 1.5 tablets with each dose. I am including Meme about the Sunday visit. LD Telephone Encounter - Carline Trimble RN - 08/15/2021 1209 EDT TC to patient. She states. Would like to increase her clonopin to 1.5 mg twice per day as she thinksit will improve her tardive dyskinesia more as well as help with the shaking she experiences in her legs and feel. Patient reports that sine she has started this medication, she notices that she is able to void much easier no than she has in the past 4 years. She typically spends around 45 minutes in the bathroom trying to empty her bladder and now she can go in and void with no difficulties. Patient also is asking if her next appointment can be a televideo appointment instead of in person. Telephone Encounter - Geraldo Kwon - 08/15/2021 1024 EDT Pt wants to know if she can increase her med clonazePAM (KLONOPIN) 0.5 mg tablet Pt wants to increase to 1.5mg twice per day in am and in pm. documented in this encounter Plan of Treatment Upcoming Encounters Date Type Specialty Care Team Description 03/02/2022 Telemedicine Neurology Alta Thakkar M D 1 [facility], [address] [place], [place] [phone] (Wo rk) documented as of this encounter Visit Diagnoses Not on filedocumented in this encounter Discontinued Medications Medication Sig Discontinue Reason Start Date End Date clonazePAM (KLONOPIN) Take 2 tablets in the Dose adjustment 022 08/15/2021 0.5 mg tablet morning and 1 tablet at night x 1 week, then 2 tablets twice daily thereafter documented as of this encounter Care Teams Retail Attendant Relationship Specialty Start Date End Date Yumiko Tavarez MD PCP - General 12/29/[address] [place] [phone] documented as of this encounter
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
--- OUTSIDE RECORDS SUMMARY | 2022-01-20 00:12 | XMS_ITS | Encounter Summary ---
:1965 Author Organization [facility] Address [address] [place] [address] Care Team Providers Name Role Phone Yumiko Tavarez MD Primary Care Provider Reason for Visit Reason Onset Date Comments Medication Management 09/30/2021 Encounter Details Date Type Department Care Team Description 09/30/2021 Telephone [facility] Alta Del Valle MD Medication Management Neurology - [address] [address] [place], [place] [phone] (Wo rk) Social History Tobacco Use Types Packs/Day Years Used Date Smoking Tobacco: Every Day Cigarettes 1 25 Smokeless Tobacco: Never Sex Assigned at Date Recorded Not on file documented as of this encounter Ordered Prescriptions Prescription Sig Dispensed Refills Start Date End Date clonazePAM (KLONOPIN) 1 Take 1.5 Tablets by 105 Tablet 5 12/202112/14/2021 mg tablet mouth 2 times daily AND 0.5 Tablets daily. Daily Max: 3.5 mg. documented in this encounter Miscellaneous Notes Addendum Note - Alta Del Valle MD - 10/12/2021 0957 EDT Addended by: ALTA DEL VALLE on: 10/12/2021 09:57 Modules accepted: Orders Addendum Note - Alta Laughlin RN - 10/12/2021 0823 EDT Addended by: ALTA LAUGHLIN on: 10/12/2021 08:23 Modules accepted: Orders Telephone Encounter - Alta Laughlin RN - 10/04/2021 1327 EDT 39 tabs should last 11 days taking 3.5 tabs per day. Refill will be needed by October 14. [employer] message to Miguelina requesting she request the refill next Sunday. Telephone Encounter - Alta Laughlin RN - 10/04/2021 1324 EDT Per separate [employer] message from Miguelina 10/03/21: Alta, you asked how many Klonopin I have left. I counted and there is [address] Del Valle writes new script, could you please have her send it to [facility] on [facility] in [place]. Also if you could just shoot me a quick text letting me know what day. Or actually, when I run out, I'll know it's time to get new one. Thank you, Miguelina Telephone Encounter - Alta Laughlin RN - 10/03/2021 0815 EDT Medication Rx Request Medication: clonazePAM (KLONOPIN) 1 mg tablet Last Visit in login department: 09/29/2021 Next appointment Scheduled: 12/01/2021 Date previous Rx written: 09/16/2021 30 days w/ 5 RF (1.5mg BID) OVN Dr. Del Valle 09/29/2021 indicates: -continue clonazepam 1mg - 1.5 tablets BID + 0.5mg mid-day VPMS Inquiry needed? yes The [place] Prescription Monitoring System query has been completed per the following requirement(s): annual If yes, date of last fill: 09/16/2021 Documentation Reviewed TC to Miguelina to ask how much clonazepam she has remaining to calculate when new rx for increased dose is needed. She is not home at this time but will message with information when she is. No further questions at this time. Telephone Encounter - Naye Lara - 09/30/2021 1357 EDT Miguelina called in this afternoon looking to see if the medication refill that Dr. Del Valle was going to call in for her after her appointment yesterday, September 29, 2021. The medication is for clonazePAM (KLONOPIN) 1 mg tablet. She states that the dosage hs changed. She uses the [id number] - [place], [place] - [address] [place] [address]. Please call to advise. Thank you documented in this encounter Plan of Treatment Upcoming Encounters Date Type Specialty Care Team Description 03/02/2022 Telemedicine Neurology Alta Del Valle M D 1 [facility] 2 [place], [place] [phone] (Wo rk) documented as of this encounter Visit Diagnoses Not on filedocumented in this encounter Discontinued Medications Medication Sig Discontinue Reason Start Date End Date clonazePAM (KLONOPIN) 1 Take 1.5 Tablets by Reorder 09/16/2021 10/12/2021 mg tablet mouth 2 times daily. Daily Max: 3 mg documented as of this encounter Care Teams Value Stream Manager Relationship Specialty Start Date End Date Yumiko Tavarez MD PCP - General 12/29/[address] [place] [phone] documented as of this encounter
--- OUTSIDE RECORDS SUMMARY | 2022-01-20 00:13 | XMS_ITS | Encounter Summary ---
:1965 Author Organization [facility] Address [address] [place] [address] Care Team Providers Name Role Phone Yumiko Tavarez MD Primary Care Provider Reason for Visit Radiology Services (Routine) - Receiving Office to Obtain Authorization Specialty Diagnoses / Procedures Referred By Contact Refer red To Contact Nuclear Medicine Diagnoses Parkinsonism, unspecified Parkinsonism type ([facility]) Alta Thakkar MD Procedures NM DATSCAN WITH SPECT/CT NM DATSCAN SPECT [address] [place] [address] 2 [place] [phone] Referral ID Status Reason Start Expiration Visits Visits Date Date Requested Authorized [id number] Receiving Office 04/07/2020 1 1 to Obtain Authorization Encounter Details Date Type Department Care Team Description 05/20/2020 Hospital [facility], Radiology Nuclear unspecifie d Medicine and PET - Parkinson is type [facility] ([facility]) [address] [place] [address] [id number] Social History Tobacco Use Types Packs/Day Years Used Date Smoking Tobacco: Every Day Cigarettes 1 25 Sex Assigned at Date Recorded Not on file COVID-19 Exposure Response Date Recorded In the last month, have you been in contact with No / Unsure 05/20/2020 11:03 EDT someone who was confirmed or suspected to have Coronavirus / COVID-19? documented as of this encounter Medications at Time of Discharge Medication Sig Dispensed Refills Start Date End Date calcium carbonate (TUMS) Take 2 Tabs by 0 200 mg calcium (500 mg) mouth 2 times tablet,chewable daily. cholecalciferol (VITAMIN Take 50,000 Units 0 D3) 1,250 mcg (50,000 unit) by mouth once a capsule week. cyanocobalamin 1,000 mcg Take 1,000 mcg by 0 tablet mouth daily. folic acid (FOLVITE) 1 mg Take 1 mg by mouth 0 tablet daily. naloxone (NARCAN) 4 1 [place] by nasal 0 mg/actuation nasal spray route as needed. omeprazole (PRILOSEC) 20 mg Take 20 mg by 0 12/16 capsule mouth every morning. oxyCODONE-acetaminophen Take 1 Tab by 0 (PERCOCET) 10-325 mg per mouth every 6 tablet hours. pregabalin (LYRICA) 150 mg TK ONE C PO BID 0 01/05 capsule pregabalin (LYRICA) 50 mg TK ONE C PO D. 0 2019 capsule TAKE IN THE MORNING WITH 150 MG TO EQUAL 200 MG zolpidem (AMBIEN) 10 mg Take 10 mg by 0 tablet mouth. ALPRAZolam (XANAX) 0.5 mg Take 1 Tab by 2 Tab 0 021 07/06/2020 tablet mouth once for 1 dose. Take 1 tablet ~1 hour prior to study, can repeat just prior to study as needed Daily Max: 1 mg iodine strong (LUGOLS) 5 % Take 2 mls (100 mg 1 Bottle 0 0 04/07/2020 05/26/2020 solution iodine) orally 1 hour prior to exam. documented as of this encounter Discharge Disposition Disposition Code Departure Means Destination Home or Self Care documented in this encounter Plan of Treatment Upcoming Encounters Date Type Specialty Care Team Description 03/02/2022 Telemedicine Neurology Alta Thakkar M D 1 [facility], [address] [place], [place] [phone] (Wo rk) documented as of this encounter Procedures Procedure Name Priority Date/Time Associated Diagnosis Comme nts NM DATSCAN WITH Routine 05/20/2020 15:56 Parkinsonism, Results for this SPECT/CT EDT unspecified procedure are i n Parkinsonism type the result s ([facility]) section. documented in this encounter Results NM DATSCAN WITH SPECT/CT (05/20/2020 15:56 EDT) Anatomical Region Laterality Modality Head Nuclear Medicine Specimen (Source) Anatomical Location Collection Method / Collectio n Time Received Time / Laterality Volume Impressions 05/20/2020 16:38 EDT Normal and symmetric uptake in the caudate and putamen bilaterally. I have personally reviewed the images an d the above interpretation and agree with the findings. Narrative 05/20/2020 16:38 EDT Brain SPECT DATscan Signs & Symptoms: ?? Parkinsonism. Technique: Approximately 4 hours after the IV injec tion of 5mCi of I-123 Ioflupane, SPECT/CT images of the brain were obtained. ?? Findings: Uptake in the caudate and putamen is wit hin normal limits and symmetric. No significant abnormality seen on the a ccompanying low-dose CT. Alta Thakkar MD IMG NM ORDERABLES documented in this encounter Visit Diagnoses Diagnosis Parkinsonism, unspecified Parkinsonism t ype (HCC) documented in this encounter Administered Medications Inactive Administered Medications - up to 3 most recent administrations Medication Order MAR Action Action Date Dose Rate Site ioflupane (I-123) (DATSCAN) Given 05/20/2020 11:30 EDT 5.1 janet curies injection 5 millicurie 5 millicurie, radiopharm IV, NOW X1, 1 dose, On Lisa 05/20/20 at 1200, Routine, Imaging Protocol Orders documented in this encounter Orders Medications Ordered That Might Not Have Count Last Ord ered Date First Ordered Date Been Administered ioflupane (I-123) (DATSCAN) injection 5 1 05/21/19 21 millicurie documented in this encounter Care Teams Reporting Consultant Relationship Specialty Start Date End Date Yumiko Tavarez MD PCP - General 12/29/[address] [place] [phone] documented as of this encounter
--- OUTSIDE RECORDS SUMMARY | 2022-01-20 00:13 | XMS_ITS | Encounter Summary ---
:1965 Author Organization [facility] Address [address] [place] [address] Care Team Providers Name Role Phone Yumiko Tavarez MD Primary Care Provider Reason for Visit Reason Onset Date Comments Appointment Related 06/09/2020 Encounter Details Date Type Department Care Team Description 06/09/[address] [facility] Cat Dorantes ntment Related Neurology - S Prospe roscoe Haney MD [address] [phone] [facility] [address] [place] [phone] (Wo rk) Social History Tobacco Use Types [...] / COVID-19? documented as of this encounter Miscellaneous Notes Telephone Encounter - Ghazala Bowen - 06/18/2020 1626 EDT Patient called and rescheduled NPV TVD extended with Dr Dorantes to Alejandra 07/06/20 at 1030. [place]: [phone] Email:[email or web address] Meeting ID: [id number] Password: [id number] Telephone Encounter - Meme Lemus - 06/15/2020 1551 EDT Outreached Miguelina, rescheduled the cancelled appt from 06/15/2020 at 8:[address] Dorantes. New NPV TVD EXT appt is on Sunday06/28/2020 at 9:[address] Dorantes [place]: [phone] Email:[email or web address] Meeting ID: [id number] Password: [id number] Telephone Encounter - Monae Chavez - 06/15/2020 0810 EDT Patient calling to cancel the 8:45 appointment today with as she is ill. She will call back and reschedule when she feels better. Telephone Encounter - Meme Lemus - 06/09/2020 1232 EDT Outreached Miguelina, scheduled an NPV TVD EXT appt with Dr. Dorantes on Sunday06/15/2020 at 8:45 AM. [place]: [phone] EMail: [email or web address] Meeting ID: [id number] Password: [id number] documented in this encounter Plan of Treatment Upcoming Encounters Date Type Specialty Care Team Description 03/02/2022 Telemedicine Neurology Alta Thakkar M D 1 [facility], Level 2 [place], [place] [phone] (Wo rk) documented as of this encounter Visit Diagnoses Not on filedocumented in this encounter Care Teams Steam Trap Worker Relationship Specialty Start Date End Date Yumiko Tavarez MD PCP - General 12/29/19 [address] [place] [phone] documented as of this encounter
--- OUTSIDE RECORDS SUMMARY | 2022-01-20 00:13 | XMS_ITS | Encounter Summary ---
:1965 Author Organization [facility] Address [address] [place] [address] Care Team Providers Name Role Phone Yumiko Tavarez MD Primary Care Provider Encounter Details Date Type Department Care Team Description 03/03/2021 Ambulatory Pharmacy [facility] Dante Vaughn, [facility] Ambulatory [facility] - [address] [facility] [address] [place] [phone] Social History Tobacco Use Types Packs/Day Years Used Date Smoking Tobacco: Every Day Cigarettes 1 25 Smokeless Tobacco: Never Sex Assigned at Date Recorded Not on file documented as of this encounter Plan of Treatment Upcoming Encounters Date Type Specialty Care Team Description 03/02/2022 Telemedicine Neurology Alta Thakkar M D 1 [facility] 2 [place], [place] [phone] (Wo rk) documented as of this encounter Visit Diagnoses Not on filedocumented in this encounter Care Teams Engraving Supervisor Relationship Specialty Start Date End Date Yumiko Tavarez MD PCP - General 12/29/19 [address] [place] [phone] documented as of this encounter
--- OUTSIDE RECORDS SUMMARY | 2022-01-20 00:13 | XMS_ITS | Encounter Summary ---
:1965 Author Organization [facility] Address [address] [place] [address] Care Team Providers Name Role Phone Yumiko Tavarez MD Primary Care Provider Reason for Referral Consult (Urgent) - Authorized Specialty Diagnoses / Procedures Referred By Contact Refer red To Contact Pharmacy Diagnoses Tardive dyskinesia Alta Thakkar MD [facility] [address] [place], [place] [address] 111 [facility], Level [address] Phone: [phone] Referral ID Status Reason Start Expiration Visits Visits Date Date Requested Authorized [id number] Authorized Specialty 1 Services 1 Required Question Answer PA Type: New Medication to be Prior Authorized: Ingrezza NS Comments The purpose of this request is to inform precertification staff that the requested service needs to be reviewed for prior-a uthorization. Reason for Visit Reason Onset Date Comments Medication Management 02/10/2021 Encounter Details Date Type Department Care Team Description 02/10/2021 Telephone [facility] [place] Alta Thakkar MD Medication Management Neurology - S Pro[address] 1 [facility] [address], [place] [address] (Wo rk) Social History Tobacco Use Types Packs/Day Years Used Date Smoking Tobacco: Every Day Cigarettes 1 25 Smokeless Tobacco: Never Sex Assigned at Date Recorded Not on file documented as of this encounter Miscellaneous Notes Telephone Encounter - Geraldo Kwon - 02/15/2021 1115 EST Pt calls to check on the status of this prior auth, as described below, pt indicates she will call her insurance as well. Please call pt when we have something to report Telephone Encounter - Marsha Beauchamp RN - 2021 1721 EST Phoned Miguelina to let her know that the process for getting the Ingrezza authorized has begun and that we will contact her once there is further info. She no longer is taking the Austedo. Addendum Note - Cisco Vaughn RPH - 2021 1634 EST Addended by: CISCO VAUGHN on: 2021 16:34 Modules accepted: Orders Telephone Encounter - Naye Lara - 2021 1544 EST Patient called back this afternoon and I was able to ask about her medication. The one that she justfinished up was for Austedo, and she thinks the one the doctor wants to switch her to is for impressa. Please call to advise. Thank you Telephone Encounter - Marsha Beauchamp RN - 02/10/2021 1653 EST LM for Miguelina on unidentified voicemail stating that I would return call to her tomorrow to discuss the below. After I gather current s/sx status, will route message to Dr Thakkar for further direction. Telephone Encounter - Naye Lara - 02/10/2021 8288 EST Patient was calling this afternoon to let the doctor know that she finished up her medication and was ready to be switched over to the new medication that the doctor would like to put her on. She didn't have the name of the medication. Please call to advise. Thank you documented in this encounter Plan of Treatment Upcoming Encounters Date Type Specialty Care Team Description 03/02/2022 Telemedicine Neurology Alta Thakkar M D 1 [facility] 2 [place], [place] [phone] (Wo rk) Scheduled Referrals Name Type Priority Associated Order Schedule Diagnoses AMB CONS/FOLLOW UP Outpatient Routine/Next Tardive Expected: SPECIALTY PHARMACY Referral Available dyskinesia 2 MEDICATION PRIOR (Approximat e), AUTHORIZATION Expires: REQUEST 2022 documented as of this encounter Visit Diagnoses Diagnosis Tardive dyskinesia - Primary Subacute dyskinesia due to drugs documented in this encounter Care Teams Drywall Finisher Relationship Specialty Start Date End Date Yumiko Tavarez MD PCP - General 12/29/[address] [place] [phone] documented as of this encounter
--- OUTSIDE RECORDS SUMMARY | 2022-01-20 00:13 | XMS_ITS | Encounter Summary ---
:1965 Author Organization [facility] Address [address] [place] [address] Care Team Providers Name Role Phone Yumiko Tavarez MD Primary Care Provider Reason for Visit Reason Onset Date Comments Appointment Related 05/31/2020 Encounter Details Date Type Department Care Team Description 05/31/2020 Telephone [facility] Alta Thakkar MD Appointment Related Neurology - S [address] 1 [facility] 1 [place] [address] [facility] [place] [address] (Wo rk) Social History Tobacco [...] this encounter Miscellaneous Notes Telephone Encounter - Kena Marshall - 05/31/2020 1657 EDT Spoke with patient.Scheduled 2 mo FUR/zoom appt with Ariane for 07/22/20 at 10am 2 mo [email or web address] Meeting ID: [id number] Password: [id number] documented in this encounter Plan of Treatment Upcoming Encounters Date Type Specialty Care Team Description 03/02/2022 Telemedicine Neurology Alta Thakkar M D 1 [facility], Level [address] [place], [place] [phone] (Wo rk) documented as of this encounter Visit Diagnoses Not on filedocumented in this encounter Care Teams Instrument Checker Relationship Specialty Start Date End Date Yumiko Tavarez MD PCP - General 12/29/19 [address] [place] [phone] documented as of this encounter
--- OUTSIDE RECORDS SUMMARY | 2022-01-20 00:13 | XMS_ITS | Encounter Summary ---
:1965 Author Organization [facility] Address [address] [place] [address] Care Team Providers Name Role Phone Yumiko Tavarez MD Primary Care Provider Encounter Details Date Type Department Care Team Description 06/23/[address] [facility] Alta Thakkar MD Neurology - S Pro[address] 1 [facility] 1 [facility], Level 2 [place] [address] [place] [address] (Wo rk) Social History Tobacco Use Types Packs/Day Years Used Date Smoking Tobacco: Every Day Cigarettes 1 25 Smokeless Tobacco: Never Sex Assigned at Date Recorded Not on file documented as of this encounter Miscellaneous Notes Telephone Encounter - Veronica Vaughn RN - 06/24/2021 1053 EDT FYI Pharmacist called to inform that oxycodone-acetaminophen 10-325 mg Take 1 Tab by mouth every 6 hourswas Currently being prescribed and used by her PCP. Miguelina currently takes Clonazapam 0.5mg 2 tablets twice a day Naloxone ( Narcan) PRN was ordered Routed to for review Telephone Encounter - Geraldo Kwon - 06/23/2021 1607 EDT Pharmacy calls to say we need to know about other meds pt takes from PCP. Pharmacy states they are opiates and benzos and we may need to know that. Please contact pharmacy to confirm so they can fill this order. documented in this encounter Plan of Treatment Upcoming Encounters Date Type Specialty Care Team Description 03/02/2022 Telemedicine Neurology Alta Thakkar M D 1 [facility] 2 [place], [place] [phone] (Wo rk) documented as of this encounter Visit Diagnoses Not on filedocumented in this encounter Care Teams Director [employer] Relationship Specialty Start Date End Date Yumiko Tavarez MD PCP - General 12/29/19 [address] [place] [phone] documented as of this encounter
--- OUTSIDE RECORDS SUMMARY | 2022-01-20 00:13 | XMS_ITS | Encounter Summary ---
:[address] [facility] Address [address] [place] [address] Care Team Providers Name Role Phone Yumiko Tavarez MD Primary Care Provider Reason for Visit Reason Onset Date Comments Medication Management 07/21/2020 Encounter Details Date Type Department Care Team Description 07/21/2020 Telephone [facility] Alta Thakkar MD Medication Management Neurology - S [address] [address] [place], [place] [address] (Wo rk) Social History Tobacco Use Types Packs/Day Years Used Date Smoking Tobacco: Every Day Cigarettes 1 25 Smokeless Tobacco: Never Sex Assigned at Date Recorded Not on file documented as of this encounter Ordered Prescriptions Prescription Sig Dispensed Refills Start Date End Date tetrabenazine 25 mg tablet Take 1 Tab by 90 Tab 3 202007/27/2020 tablet mouth 3 times daily. documented in this encounter Miscellaneous Notes Telephone Encounter - Cynthia Colunga RN - 07/21/2020 1602 EDT TC to [facility], spoke to Rm Reardon Provided verbal order for tetrabenazine 25 mg tablets; verbal order confirmed. Telephone Encounter - Orly Bertrand MA - 07/21/2020 1407 EDT TC received from pharmacist at [facility] requesting a call back regarding Tetrabenazine, they have a current order for 12.5 mg TID, per patient message with Dr. Thakkar on 07/16/2020, was instructed to increase medication to 25 mg TID. [facility] verbal order [phone] documented in this encounter Plan of Treatment Upcoming Encounters Date Type Specialty Care Team Description 03/02/2022 Telemedicine Neurology Alta Thakkar M D 1 [facility] Level 2 [place], [place] [phone] (Wo rk) documented as of this encounter Visit Diagnoses Not on filedocumented in this encounter Discontinued Medications Medication Sig Discontinue Reason Start Date End Date tetrabenazine 12.5 mg Take 1 Tab by Dose adjustment 06/16/2020 tablet mouth 3 times daily. documented as of this encounter Care Teams Video Specialist Relationship Specialty Start Date End Date Yumiko Tavarez MD PCP - General 12/29/19 [address] [place] [phone] documented as of this encounter
--- OUTSIDE RECORDS SUMMARY | 2022-01-20 00:13 | XMS_ITS | Encounter Summary ---
:1965 Author Organization [facility] Address [address] [place] [address] Care Team Providers Name Role Phone Yumiko Tavarez MD Primary Care Provider Reason for Visit Reason Onset Date Comments Medications Refill 06/18/2020 Encounter Details Date Type Department Care Team Description 06/18/2020 Telephone [facility] Alta Thakkar MD Medications Refill Neurology - S [address] 1 [facility] 1 [place] [address] [place], [place] [address] (Wo rk) Social History Tobacco [...] this encounter Miscellaneous Notes Telephone Encounter - Kane Parker RN - 06/21/2020 1636 EDT Spoke with Miguelina to inform her that I spoke with [employer] and provided them with the PA approval #. Informed her that if I hear anything else I will let her know. She verbalized understanding and will call me back if she hasn't heard anything from [employer] in a couple days. Telephone Encounter - Kane Parker RN - 06/21/2020 1607 EDT Spoke with [facility]- provided them with the PA approval #. They are adding this to her chart and sending to the PA team. Telephone Encounter - Martha Hutchinson MA - 06/21/2020 1513 EDT Received a phone call from [facility] on the refill line. Asking if the PA had been received as this pt's plan require a PA for the Rx. [phone] Telephone Encounter - Kane Parker RN - 06/18/2020 1731 EDT Spoke with Miguelina to inform her that I sent the prescription to [facility] on 06/16/20. Informed her that I just spoke with [facility] and they did receive the prescription and reported that it is in process. Informed her that the sales representative printing supplies said that she will receive a call once it has been processed to schedule the delivery. I apologized to Miguelina for this inconvenience. She will call me back on Sunday if she still hasn't heard anything from [facility]. Telephone Encounter - Ghazala Bowen - 06/18/2020 1634 EDT Patient requesting to have tetrabenazine 12.5 mg tablet resent to [facility] - [address] documented in this encounter Plan of Treatment Upcoming Encounters Date Type Specialty Care Team Description 03/02/2022 Telemedicine Neurology Alta Thakkar M D 1 [facility] 2 [place] [phone] (Wo rk) documented as of this encounter Visit Diagnoses Not on filedocumented in this encounter Care Teams Motor Coach Operator Relationship Specialty Start Date End Date Yumiko Tavarez MD PCP - General 12/29/19 [place] [address] documented as of this encounter
--- OUTSIDE RECORDS SUMMARY | 2022-01-20 00:13 | XMS_ITS | Encounter Summary ---
:1965 Author Organization [facility] Address [address] [place] [address] Care Team Providers Name Role Phone Yumiko Tavarez MD Primary Care Provider Reason for Visit Reason Onset Date Comments Appointment Related 11/18/2020 Encounter Details Date Type Department Care Team Description 11/18/2020 Telephone [facility] Alta Thakkar MD Appointment Related Neurology - S Pro[address] [address] [place] [phone] (Wo rk) Social History Tobacco Use Types Packs/Day Years Used Date Smoking Tobacco: Every Day Cigarettes 1 25 Smokeless Tobacco: Never Sex Assigned at Date Recorded Not on file documented as of this encounter Miscellaneous Notes Telephone Encounter - Meme Lemus - 11/18/2020 1446 EDT Spoke to Miguelina, cancelled her 4 MO FUR On-SITE appt with Dr. Thakkar on Sunday11/22/2020 at 2:45 PM and rescheduled it to Sunday01/24/2021 at 4:15 PM. documented in this encounter Plan of Treatment Upcoming Encounters Date Type Specialty Care Team Description 03/02/2022 Telemedicine Neurology Alta Thakkar M D 1 [facility], Level [address] [place], [place] [phone] (Wo rk) documented as of this encounter Visit Diagnoses Not on filedocumented in this encounter Care Teams Marketing Traffic Manager Relationship Specialty Start Date End Date Yumiko Tavarez MD PCP - General 12/29/19 [place] [address] documented as of this encounter
--- OUTSIDE RECORDS SUMMARY | 2022-01-20 00:13 | XMS_ITS | Encounter Summary ---
:1965 Author Organization [facility] Address [address] [place] [address] Care Team Providers Name Role Phone Yumiko Tavarez MD Primary Care Provider Reason for Visit Reason Comments Other Encounter Details Date Type Department Care Team Description 09/03/2020 Refill [facility] Neurology Alta Enriquez MD Other - [address] [facility] 2 [place] [address] [place] [address] [phone] (Wo rk) Social History Tobacco Use Types Packs/Day Years Used Date Smoking Tobacco: Every Day Cigarettes 1 25 Smokeless Tobacco: Never Sex Assigned at Date Recorded Not on file documented as of this encounter Plan of Treatment Upcoming Encounters Date Type Specialty Care Team Description 03/02/2022 Telemedicine Neurology Alta Thakkar M D [address] [place] [address] 2 [place], [place] [address] (Wo rk) documented as of this encounter Visit Diagnoses Not on filedocumented in this encounter Care Teams Epic Ambulatory Specialists Relationship Specialty Start Date End Date Yumiko Tavarez MD PCP - General 12/29/19 [address] [place] [phone] documented as of this encounter
--- OUTSIDE RECORDS SUMMARY | 2022-01-20 00:13 | XMS_ITS | Encounter Summary ---
:1965 Author Organization [facility] Address [address] [place] [address] Care Team Providers Name Role Phone Yumiko Tavarez MD Primary Care Provider Reason for Visit Reason Onset Date Comments Other 04/06/2020 Encounter Details Date Type Department Care Team Description 04/06/2020 Telephone [facility] Alta Thakkar MD Other Neurology - S [address] 1 [facility] 1 [facility], Level [address] [place] [address] [place] [address] (Wo rk) Social History Tobacco Use Types Packs/Day Years Used Date Smoking Tobacco: Every Day Cigarettes 1 25 Sex Assigned at Date Recorded Not on file documented as of this encounter Ordered Prescriptions Prescription Sig Dispensed Refills Start Date End Date iodine strong (LUGOLS) 5 % Take 2 mls (100 mg 1 Bottle 0 0 04/07/2020 05/26/2020 solution iodine) orally 1 hour prior to exam. documented in this encounter Miscellaneous Notes Telephone Encounter - Kane Parker RN - 04/07/2020 0921 EST Spoke with pt's pharmacy- they report that they can get the Lugol's solution and have already ordered it for the pt. Informed pt that Dr Thakkar ordered the Valentin scan and the lugol's solution was sent to [facility]- they will call her when ready. Informed her that she would receive a call from [facility] radiology to schedule the scan. She reports that she has had a Valentin scan in the past- reviewed with her that she will drink the Lugol's solution an hour before her appt. Informed her that she when she comes in on the day of her test she will have an IV placed and they will administer the radioisotope and then she will leave for a couple hours and come back for the scan. Informed her that nuclear medicine would give her details on what time to come back for the scan. She reports that her will drive her that day. Reviewed medication list- did not see any meds that she needs to d/c prior to Valentin scan.Pt verbalizedunderstanding. Informed her that Dr Thakkar would send her a message with medication options. Telephone Encounter - Kane Parker RN - 04/06/2020 1423 EST Spoke with pt- she is inquiring about starting a medication to help with her involuntary movements. She reports that they have not gotten worse since her last appt with Dr Thakkar on 02/23/20- she has just been thinking about wanting to give something a try. She reports that she has tried Rytary which made her nauseous; as well as, carbidopa levodopa that had the same side effect. Not currently taking any medications to help with her movements. She also would like me to inform Dr Thakkar that she is willing to have a Valentin scan if she is still recommending it. Preferred pharmacy [facility] in [place], [place] Telephone Encounter - Kena Marshall - 04/06/2020 1126 EST Spoke with patient about rescheduling appt. She also wanted to ask Dr Thakkar if there is something she could prescribe for her to help control her movement. Also she is willing to have a DATScan again if she would like to order it. documented in this encounter Plan of Treatment Upcoming Encounters Date Type Specialty Care Team Description 03/02/2022 Telemedicine Neurology Alta Thakkar M D 1 [facility], Level [address] [place], [place] [address] (Wo rk) documented as of this encounter Visit Diagnoses Diagnosis Parkinsonism, unspecified Parkinsonism t ype ([facility]) - Primary documented in this encounter Care Teams Inspector Multifocal Lens Relationship Specialty Start Date End Date Yumiko Tavarez MD PCP - General 12/29/[address] [place] [phone] documented as of this encounter
--- OUTSIDE RECORDS SUMMARY | 2022-01-20 00:13 | XMS_ITS | Encounter Summary ---
:1965 Author Organization [facility] Address [address] [place] [address] Care Team Providers Name Role Phone Unknown, Provider Primary Care Provider Yumiko Tavarez MD Primary Care Provider Reason for Visit Reason Onset Date Comments New Patient Visit 12/18/2019 Encounter Details Date Type Department Care Team Description 12/18/2019 Telephone [facility] Alta Thakkar MD New Patient Visit Neurology - [address] [facility] 1 [place] [address] [place], [place] [address] (Wo rk) Social History Tobacco [...] Notes Telephone Encounter - Geraldo Kwon - 12/25/2019 1339 EDT Outgoing call to clarify if pt can do video. Pt accepts video NPV with Ariane scheduled for 01/01/20 at 9am. Contacts confirmed and zoom invite sent. Telephone Encounter - Pratima Mckeon - 12/18/2019 1221 EDT Miguelina called back to schedule but does not want to do a TVD for her first visit. She would prefer andin person. She has removed the restrictions from her phone so it won't go to voice mail when you call Telephone Encounter - Geraldo Kwon - 12/18/2019 1156 EDT Outgoing call to schedule from [facility], with Dr. Alta Thakkar. If pt calls back please assist with scheduling a 60 minute televideo NPV. Phone telemed not an option. Please schedule at next available. Please send zoom invite with NPV packet attached, and assign referral. If Pt ABSOLUTELY can not do video, ok to schedule as onsite NPV. Do NOT remove restrictions. Must add appt notes ???NPV onsite can???t do video.?? If pt can do video but requests in-person visit, forward encounter to me, do not schedule. documented in this encounter Plan of Treatment Upcoming Encounters Date Type Specialty Care Team Description 03/02/2022 Telemedicine Neurology Alta Thakkar M D 1 [facility], Level 2 [place], [place] [phone] (Wo rk) documented as of this encounter Visit Diagnoses Not on filedocumented in this encounter Care Teams Varnish Mixer Relationship Specialty Start Date End Date Unknown, Maurizio, PCP - General 08/05/08 12/28/19 Yumiko Tavarez MD PCP - General 12/29/19 [address] [place] [address] documented as of this encounter
--- OUTSIDE RECORDS SUMMARY | 2022-01-20 00:13 | XMS_ITS | Encounter Summary ---
:1965 Author Organization [facility] Address [address] [place] [address] Care Team Providers Name Role Phone Unknown, Provider Primary Care Provider Yumiko Tavarez MD Primary Care Provider Reason for Visit Reason Onset Date Comments Referral Request 06/19/2019 Encounter Details Date Type Department Care Team Description 06/19/2019 Telephone [facility] Unknown, Provider, Ref erral Request Neurology - S Stacie malhotra MD 1 [facility] [place] [address] [phone] Social History Tobacco Use Types Packs/Day Years [...] Notes Telephone Encounter - Kena Marshall - 06/20/2019 1533 EDT Dillon from [facility] calling to amparo Vaughn know that the Pt would like to keep referral with [facility] for second opinion and will resend updated referral in September when patient sees them for appt. Telephone Encounter - Marlene Sen - 06/20/2019 1140 EDT Dillon calls regarding her phone call from yesterday asking for Johana. I will forward to Johana :) Telephone Encounter - Johana Govea - 06/19/2019 9153 EDT Calling referring office ([phone]) to inform them of the doctor's opinion regarding patient's referral (listed in message below). Spoke with Magali in the office. She understands, I recommended either informing the patient we'll need to wait until she can be seen onsite (greatly delaying referral) or we can close it and she can touch base with her previous neurologist. Magali said she will update the patient and will let us know to either delay or close the referral. From Dr. Barry - I would tell the referring office that a telemedicine second movement disorders /third neurologist opinion for a patient who has already been under movement disorders specialty care will be of limitedvalue and ideally served with follow up care with [facility] until we can get her on site I can see the patient with the caveat that the recommendations may be limited documented in this encounter Plan of Treatment Upcoming Encounters Date Type Specialty Care Team Description 03/02/2022 Telemedicine Neurology Alta Thakkar M D 1 [facility] 2 [place], [place] [phone] (Wo rk) documented as of this encounter Visit Diagnoses Not on filedocumented in this encounter Care Teams Benefits Officer Relationship Specialty Start Date End Date Unknown, Provider, PCP - General 08/05/08 12/28/19 Yumiko Tavarez MD PCP - General 12/29/19 [address] [place] [address] documented as of this encounter
--- OUTSIDE RECORDS SUMMARY | 2022-01-20 00:13 | XMS_ITS | Encounter Summary ---
:1965 Author Organization [facility] Address [address] [place] [address] Care Team Providers Name Role Phone Yumiko Tavarez MD Primary Care Provider Reason for Visit Reason Onset Date Comments Appointment Related 12/23/2020 Encounter Details Date Type Department Care Team Description 12/23/2020 Telephone [facility] Alta Thakkar MD Appointment Related Neurology - S [address] [address] [facility] [place] [phone] (Wo rk) Social History Tobacco Use Types Packs/Day Years Used Date Smoking Tobacco: Every Day Cigarettes 1 25 Smokeless Tobacco: Never Sex Assigned at Date Recorded Not on file documented as of this encounter Miscellaneous Notes Telephone Encounter - Kena Marshall - 12/23/2020 0931 EDT Spoke to patient and scheduled FUR /televideo with Dr Thakkar for 01/06/21 at 10:30am. Canceled 01/24/21 documented in this encounter Plan of Treatment Upcoming Encounters Date Type Specialty Care Team Description 03/02/2022 Telemedicine Neurology Alta Thakkar M D 1 [facility], [facility] 2 [place], [place] [phone] (Wo rk) documented as of this encounter Visit Diagnoses Not on filedocumented in this encounter Care Teams Field Sales Agent Relationship Specialty Start Date End Date Yumiko Tavarez MD PCP - General 12/29/19 [place] [phone] documented as of this encounter
--- OUTSIDE RECORDS SUMMARY | 2022-01-20 00:13 | XMS_ITS | Encounter Summary ---
:1965 Author Organization [facility] Address [address] [place] [address] Care Team Providers Name Role Phone Yumiko Tavarez MD Primary Care Provider Reason for Visit Reason Onset Date Comments Medication Management 10/06/2020 Encounter Details Date Type Department Care Team Description 10/06/2020 Telephone [facility] Alta Thakkar MD Medication Management Neurology - S [address] [address] [facility], [place] [phone] (Wo rk) Social History Tobacco Use Types Packs/Day Years Used Date Smoking Tobacco: Every Day Cigarettes 1 25 Smokeless Tobacco: Never Sex Assigned at Date Recorded Not on file documented as of this encounter Ordered Prescriptions Prescription Sig Dispensed Refills Start Date End Date deutetrabenazine 12 mg Take 1 Tablet by 180 Tablet 3 021 11/29/2020 tablet mouth 2 times daily. deutetrabenazine (AUSTEDO) Take 6 mg by 30 Tablet 1 021 11/29/2020 6 mg tablet mouth every morning. deutetrabenazine (AUSTEDO) Take 6 mg by 30 Tablet 1 021 10/13/2020 6 mg tablet mouth every morning. documented in this encounter Miscellaneous Notes Addendum Note - Cisco Vaughn [facility] - 10/13/2020 1007 EDT Addended by: CISCO VAUGHN on: 10/13/2020 10:07 Modules accepted: Orders Telephone Encounter - Cisco Vaughn RPH - 10/08/2020 1452 EDT Incoming call from Miguelina regarding Austedo. Patient has been taking 12mg PO BID for 2 weeks at this point, denies improvement and side effects. Documentation shows that a renewal of her 12mg PO BID Rx was sent to [facility] today. Additional Rx can be sent for a different strength so that dose increase may be pursued. After discussion with prescriber, the plan will be for Miguelina to initiate 18mg (12+6) PO QAM and 12mg PO QPM. I will follow up with the patient 1-2 weeks after the dose increase to assess efficacy/tolerance. Telephone call to patient, voicemail left asking for call back. Cisco Vaughn, Pharm.D. [facility] Ambulatory Pharmacist Clinician 10/08/2020 Telephone Encounter - Alta Guajardo - 10/08/2020 1436 EDT Miguelina called to advise that no one has called her back yet from the specialty pharmacy. Transferred to specialty pharmacy - Telephone Encounter - Linette Diaz - 10/06/2020 0816 EDT Pt called to let the office know that the Austedo 12 mg tab is having no effect, no side effects butalso no improvement, should she increase dosage documented in this encounter Plan of Treatment Upcoming Encounters Date Type Specialty Care Team Description 03/02/2022 Telemedicine Neurology Alta Thakkar M D 1 [facility], Level [address] [place], [place] [phone] (Wo rk) documented as of this encounter Visit Diagnoses Not on filedocumented in this encounter Discontinued Medications Medication Sig Discontinue Reason Start Date End Date deutetrabenazine 12 mg Take 1 Tablet by Reorder 10/08/2020 0 10/13/2020 tablet mouth 2 times daily. deutetrabenazine (AUSTEDO) Take 6 mg by Reorder 10/08/2020 0 10/13/2020 6 mg tablet mouth every morning. documented as of this encounter Care Teams Supervisor Order Takers Relationship Specialty Start Date End Date Yumiko Tavarez MD PCP - General 12/29/[address] [place] [phone] documented as of this encounter
--- OUTSIDE RECORDS SUMMARY | 2022-01-20 00:13 | XMS_ITS | Encounter Summary ---
:1965 Author Organization [facility] Address [address] [place] [address] Care Team Providers Name Role Phone Yumiko Tavarez MD Primary Care Provider Encounter Details Date Type Department Care Team Description 04/07/2020 Orders Only [facility] S[facility]is Hearn MD Radiology - Main [facility] pus [address] [address] [place], [place] [address] (Wo rk) Social History Tobacco Use Types Packs/Day Years Used Date Smoking Tobacco: Every Day Cigarettes 1 25 Sex Assigned at Date Recorded Not on file documented as of this encounter Plan of Treatment Upcoming Encounters Date Type Specialty Care Team Description 03/02/2022 Telemedicine Neurology Alta Thakkar M D 1 [facility], Level [address] [place], [place] [phone] (Wo rk) documented as of this encounter Visit Diagnoses Not on filedocumented in this encounter Care Teams Pie Topper Relationship Specialty Start Date End Date Yumiko Tavarez MD PCP - General 12/29/19 [address] [place] [phone] documented as of this encounter
--- OUTSIDE RECORDS SUMMARY | 2022-01-20 00:13 | XMS_ITS | Encounter Summary ---
:1965 Author Organization [facility] Address [address] [place] [address] Care Team Providers Name Role Phone Yumiko Tavarez MD Primary Care Provider Encounter Details Date Type Department Care Team Description 03/02/2021 Lab Requisition [facility] Yumiko Tavarez nter for general adult medical examination without abnormal findings; Pathology & CMD Encounter for screening for malignant ne oplasm of cervix; Laboratory Medicine [address] Encounter for gynecological examination (general) (routine) without abnormal findings - [place], [place] [address] [facility] [phone] [place], [place] [phone] Social History Tobacco Use Types Packs/Day Years Used Date Smoking Tobacco: Every Day Cigarettes 1 25 Smokeless Tobacco: Never Sex Assigned at Date Recorded Not on file documented as of this encounter Plan of Treatment Upcoming Encounters Date Type Specialty Care Team Description 03/02/2022 Telemedicine Neurology Alta Thakkar M D 1 [facility] 2 [place], [place] [phone] (Wo rk) documented as of this encounter Procedures Procedure Name Priority Date/Time Associated Diagnosis Comme nts PAP TEST Today 02/28/2021 16:30 Encounter for general Re sults for this EST adult medical procedure are in examination without the resu lts abnormal finding s section. Encounter for screening for malignant neoplasm of cervix Encounter for gynecological examination (general) (routine) without abnormal findings HUMAN PAPILLOMAVIRUS Today 02/28/2021 16:30 Encounter for ge neral Results for this (HPV) DETECTION-HIGH EST adult medical proced ure are in RISK TYPES examination without the resu lts abnormal finding s section. Encounter for screening for malignant neoplasm of cervix Encounter for gynecological examination (general) (routine) without abnormal findings documented in this encounter Results (ABNORMAL) HUMAN PAPILLOMAVIRUS (HPV) DETECTION-HIGH RISK TYPES (02/28/2021 16:30 EST) [facility] Virally Method Time Signature Human Positive Negative 03/10/2021 [facility] Papillomavirus (A) 15:14 [facility] (HPV) LABORATORY Detection-High SERVICES Types Comment: E6 OR E7 mRNA from one or more types of HPV types 16,18,31,33,35,39,45,51,52,56,58,59,66, and 68 is detected by contaminated land consultant mediated amplification. High and intermediate ris k HPV types are associated with most squamous intraepithelial lesions and cervical can cers. Specimen Anatomical Collection Method Collection Time Receive d Time (Source) Location / / Volume Laterality Pap Test (Cervix 02/28/2021 16:30 022 and/or EST 15:40 EST Endocervix) Yumiko Tavarez MD MICROBIOLOGY - GENERAL ORDER [place] Performing Organization Address City/State/ZIP Code Phon e Number [facility] [address] [place] [address] SERVICES PAP TEST (02/28/2021 16:30 EST) Component Value Ref Test Analysis Performed At [facility] Virally Range Method Time Signature Specimens A. Cervix and/or 03/10/2021 [facility] Endocervix , 15:14 [facility] ThinPrep Imaging LABORATORY System with SERVICES Manual Evaluation Specimen Satisfactory for 03/10/2021 [facility] Adequacy Evaluation - 15:14 [facility] transformation LABORATORY zone component SERVICES present General Negative for 03/10/2021 [facility] Categorization intraepithelial 15:14 [facility] lesion or LABORATORY malignancy SERVICES Attestation . 03/10/2021 [facility] Elect ronically 15:14 [facility] signed by LABORATORY Genaro, HEATHER Ibrahim(ASCP) o n 03/10/2021 a t 1514 Clinical History See below 03/10/2021 [facility] 15:14 [facility] LABORATORY SERVICES HPV The result for the Human Pap illomavirus (HPV) Detection-High Risk Types is Positive . E6 OR E7 mRNA from one or more types of HPV types 16,18,31,33,35,39,45,51,52,56,58,59,66, and 68 is detected by brandt 03/10/2021 [facility] scription mediated amplifica tion. High and intermediate risk HPV types are associated with most squamous intraepithelial lesions and cervical cancers. Testing was performed on specimen [id number] and 15 :14 EST CENTER was resulted on 03/10/2021 0708 EST by KODY CRUZ RESULTS IN LABORATORY SERVICES Performing Lab [facility] 03/10/2021 [facility] AL LAB 15:14 [facility] LABORATORY SERVICES Scanned Images 03/10/2021 [facility] 15:14 [facility] SERVICES Specimen Anatomical Collection Method Collection Time Receive d Time (Source) Location / / Volume Laterality Pap Test (Cervix 02/28/2021 16:30 021 8:58 and/or EST EST Endocervix) Yumiko Tavarez MD PATHOLOGY ORDERABLES Performing Organization Address City/State/ZIP Code Phon e Number [facility] [address] [place] [address] SERVICES documented in this encounter Visit Diagnoses Diagnosis Encounter for general adult medical exam ination without abnormal findings Unspecified general medical examination Encounter for screening for malignant ne oplasm of cervix Screening for malignant neoplasm of the cervix Encounter for gynecological examination (general) (routine) without abnormal findings documented in this encounter Care Teams Physician Coding Specialist Relationship Specialty Start Date End Date Yumiko Tavarez MD PCP - General 12/29/[address] [place] [phone] documented as of this encounter
--- OUTSIDE RECORDS SUMMARY | 2022-01-20 00:13 | XMS_ITS | Encounter Summary ---
:1965 Author Organization [facility] Address [address] [place] [address] Care Team Providers Name Role Phone Yumiko Tavarez MD Primary Care Provider Reason for Visit Reason Onset Date Comments Other 05/21/2020 Encounter Details Date Type Department Care Team Description 05/21/2020 Telephone [facility] Alta Thakkar MD Other Neurology - [address] [place] [address] [place] [address] (Wo rk) Social History Tobacco [...] Notes Telephone Encounter - Kena Marshall - 05/21/2020 1648 EDT Pt calling in again to speak with nurse regarding Tyrell Scan. Advised that the nurse has not heard back from Dr Ariane paulino. She will reach out when received response back. documented in this encounter Plan of Treatment Upcoming Encounters Date Type Specialty Care Team Description 03/02/2022 Telemedicine Neurology Alta Thakkar M D 1 [facility] 2 [place], [place] [phone] (Wo rk) documented as of this encounter Visit Diagnoses Not on filedocumented in this encounter Care Teams Leasing Property Manager Relationship Specialty Start Date End Date Yumiko Tavarez MD PCP - General 12/29/19 [place] [phone] documented as of this encounter
--- OUTSIDE RECORDS SUMMARY | 2022-01-20 00:13 | XMS_ITS | Encounter Summary ---
:1965 Author Organization [facility] Address [address] [place] [address] Care Team Providers Name Role Phone Yumiko Tavarez MD Primary Care Provider Reason for Visit Reason Onset Date Comments Medications Refill 08/25/2020 Encounter Details Date Type Department Care Team Description 08/25/2020 Telephone [facility] Alta Thakkar MD Medications Refill Neurology - S [facility] [address] [address] [place] [phone] (Wo rk) Social History Tobacco Use Types Packs/Day Years Used Date Smoking Tobacco: Every Day Cigarettes 1 25 Smokeless Tobacco: Never Sex Assigned at Date Recorded Not on file documented as of this encounter Miscellaneous Notes Telephone Encounter - Linette Diaz - 08/25/2020 0814 EDT Pt called to confirm that the prescription was in the works for [employer], I confirmed that it was being worked on as recently as last night Please send script to [facility] documented in this encounter Plan of Treatment Upcoming Encounters Date Type Specialty Care Team Description 03/02/2022 Telemedicine Neurology Alta Thakkar M D 1 [facility], [facility] 2 [place], [place] [phone] (Wo rk) documented as of this encounter Visit Diagnoses Not on filedocumented in this encounter Care Teams Clinical Review Specialist Relationship Specialty Start Date End Date Yumiko Tavarez MD PCP - General 12/29/19 [address] [place] [phone] documented as of this encounter
--- OUTSIDE RECORDS SUMMARY | 2022-01-20 00:13 | XMS_ITS | Encounter Summary ---
:1965 Author Organization [facility] Address [address] [place] [address] Care Team Providers Name Role Phone Yumiko Tavarez MD Primary Care Provider Reason for Visit Reason Onset Date Comments Medication Management 11/18/2020 Encounter Details Date Type Department Care Team Description 11/18/2020 Telephone [facility] Alta Thakkar MD Medication Management Neurology - S [address] [address] [facility] [place] [phone] (Wo rk) Social History Tobacco Use Types Packs/Day Years Used Date Smoking Tobacco: Every Day Cigarettes 1 25 Smokeless Tobacco: Never Sex Assigned at Date Recorded Not on file documented as of this encounter Miscellaneous Notes Telephone Encounter - Meme Lemus - 11/18/2020 4107 EDT Spoke to Miguelina she states the new dose of RX deutetrabenazine (AUSTEDO) 6 mg tablet Shows n difference for her, but she does not have any side affects. Would like to know if her dosageshould be increased. Requesting a call back. documented in this encounter Plan of Treatment Upcoming Encounters Date Type Specialty Care Team Description 03/02/2022 Telemedicine Neurology Alta Thakkar M D 1 [facility], Level [address] [place], [place] [phone] (Wo rk) documented as of this encounter Visit Diagnoses Not on filedocumented in this encounter Care Teams Chief Engineer Drilling And Recovery Relationship Specialty Start Date End Date Yumiko Tavarez MD PCP - General 12/29/19 [address] [place] [address] documented as of this encounter
--- OUTSIDE RECORDS SUMMARY | 2022-01-20 00:13 | XMS_ITS | Encounter Summary ---
:1965 Author Organization [facility] Address [address] [place] [address] Care Team Providers Name Role Phone Yumiko Tavarez MD Primary Care Provider Reason for Visit Reason Onset Date Comments Appointment Related 05/25/2021 Encounter Details Date Type Department Care Team Description 05/25/2021 Telephone [facility] Alta Thakkar MD Appointment Related Neurology - S [address] [address] [facility] [place] [phone] (Wo rk) Social History Tobacco Use Types Packs/Day Years Used Date Smoking Tobacco: Every Day Cigarettes 1 25 Smokeless Tobacco: Never Sex Assigned at Date Recorded Not on file documented as of this encounter Miscellaneous Notes Telephone Encounter - Antonette Cleveland - 05/25/2021 0837 EDT Spoke with the patient. Antonette scheduled in person w/Dr. Thakkar for 08/19/2021 @ 10:30 am. documented in this encounter Plan of Treatment Upcoming Encounters Date Type Specialty Care Team Description 03/02/2022 Telemedicine Neurology Alta Thakkar M D 1 [facility], [facility] 2 [place], [place] [phone] (Wo rk) documented as of this encounter Visit Diagnoses Not on filedocumented in this encounter Care Teams Hospitality Host Relationship Specialty Start Date End Date Yumiko Tavarez MD PCP - General 12/29/19 [place] [phone] documented as of this encounter
--- OUTSIDE RECORDS SUMMARY | 2022-01-20 00:13 | XMS_ITS | Encounter Summary ---
:1965 Author Organization [facility] Address [address] [place] [address] Care Team Providers Name Role Phone Yumiko Tavarez MD Primary Care Provider Reason for Visit Reason Onset Date Comments Appointment Related 01/28/2021 Encounter Details Date Type Department Care Team Description 01/28/2021 Telephone [facility] Alta Thakkar MD Appointment Related Neurology - S [address] [address] [place], [place] [address] (Wo rk) Social History Tobacco Use Types Packs/Day Years Used Date Smoking Tobacco: Every Day Cigarettes 1 25 Smokeless Tobacco: Never Sex Assigned at Date Recorded Not on file documented as of this encounter Miscellaneous Notes Telephone Encounter - Meme Lemus - 03/03/2021 1305 EST Outreached Miguelina advised that the 4 MO FUR TVD appt with Dr. Thakkar on 05/19/2021 at 3:30 PM has beenchanged to 4:00 PM. Telephone Encounter - Kena Marshall - 01/28/2021 1439 EST Called and spoke to patient. Scheduled 4 Mo FUR/televideo (she requested a televideo) with Dr. Thakkarfor 05/19/21 at 3:30pm 4 mo FUR/televideo zoom invite to be sent documented in this encounter Plan of Treatment Upcoming Encounters Date Type Specialty Care Team Description 03/02/2022 Telemedicine Neurology Alta Thakkar M D 1 [facility] 2 [place], [place] [phone] (Wo rk) documented as of this encounter Visit Diagnoses Not on filedocumented in this encounter Care Teams Shipping Agent Relationship Specialty Start Date End Date Yumiko Tavarez MD PCP - General 12/29/19 [address] [place] [phone] documented as of this encounter
--- OUTSIDE RECORDS SUMMARY | 2022-01-20 00:13 | XMS_ITS | Encounter Summary ---
:1965 Author Organization [facility] Address [address] [place] [address] Care Team Providers Name Role Phone Yumiko Tavarez MD Primary Care Provider Reason for Visit Reason Onset Date Comments Appointment Related 08/20/2020 Encounter Details Date Type Department Care Team Description 08/20/2020 Telephone [facility] Alta Thakkar MD Appointment Related Neurology - S [id number] [place] [address] [place] [phone] (Wo rk) Social History Tobacco Use Types Packs/Day Years Used Date Smoking Tobacco: Every Day Cigarettes 1 25 Smokeless Tobacco: Never Sex Assigned at Date Recorded Not on file documented as of this encounter Miscellaneous Notes Telephone Encounter - Kena Marshall - 08/20/2020 1350 EDT Spoke with patient. Scheduled 4 mo FUR in person with Dr. Thakkar for 11/22/20 at 2:45 LS 07/22/20 documented in this encounter Plan of Treatment Upcoming Encounters Date Type Specialty Care Team Description 03/02/2022 Telemedicine Neurology Alta Thakkar M D 1 [facility] 2 [place], [place] [phone] (Wo rk) documented as of this encounter Visit Diagnoses Not on filedocumented in this encounter Care Teams Pattern Keeper Relationship Specialty Start Date End Date Yumiko Tavarez MD PCP - General 12/29/19 [address] [place] [phone] documented as of this encounter
--- OUTSIDE RECORDS SUMMARY | 2022-01-20 00:13 | XMS_ITS | Encounter Summary ---
:1965 Author Organization [facility] Address [address] [place] [address] Care Team Providers Name Role Phone Unknown, Provider Primary Care Provider Yumiko Tavarez MD Primary Care Provider Encounter Details Date Type Department Care Team Description 01/20/2019 Lab Requisition [facility] Yumiko Tavarez nter for general adult medical examination without abnormal findings; Pathology & C, Encounter for gynecological examination (general) (routine) without abnormal findings; Laboratory Medicine [address] [facility] E Encounter for screening for malignant ne oplasm of cervix - [place], [place] 111 [facility] [phone] [place], [place] [address] Social History Tobacco Use Types Packs/Day Years Used Date Smoking Tobacco: Never Assessed Sex Assigned at Date Recorded Not on file documented as of this encounter Plan of Treatment Upcoming Encounters Date Type Specialty Care Team Description 03/02/2022 Telemedicine Neurology Alta Thakkar M D 1 [facility] Level 2 [place], [place] [phone] (Wo rk) documented as of this encounter Procedures Procedure Name Priority Date/Time Associated Diagnosis Comme nts PAP TEST Today 01/16/2019 14:00 Encounter for general Re sults for this EST adult medical procedure are in examination without the resu lts abnormal finding s section. Encounter for gynecological examination (general) (routine) without abnormal finding s Encounter for screening for malignant neoplasm of cervix HUMAN PAPILLOMAVIRUS Today 01/16/2019 14:00 Encounter for ge neral Results for this (HPV) DETECTION-HIGH EST adult medical proced ure are in RISK TYPES examination without the resu lts abnormal finding s section. Encounter for gynecological examination (general) (routine) without abnormal finding s Encounter for screening for malignant neoplasm of cervix documented in this encounter Results (ABNORMAL) HUMAN PAPILLOMAVIRUS (HPV) DETECTION-HIGH RISK TYPES (01/16/2019 14:00 EST) [facility] [employer] Method Time Signature Human Positive Negative 01/22/2019 [facility] Papillomavirus (A) 15:05 [facility] (HPV) LABORATORY Detection-High SERVICES Types Comment: E6 OR E7 mRNA from one or more types of HPV types 16,18,31,33,35,39,45,51,52,56,58,59,66, and 68 is detected by sales person mediated amplification. High and intermediate ris k HPV types are associated with most squamous intraepithelial lesions and cervical can cers. Specimen Anatomical Collection Method Collection Time Receive d Time (Source) Location / / Volume Laterality Pap Test (Cervix 01/16/2019 14:00 019 9:36 and/or EST EST Endocervix) Yumiko Tavarez MD MICROBIOLOGY - GENERAL ORDER [place] Performing Organization Address City/State/ZIP Code Phon e Number [facility] [address] [place] [address] SERVICES PAP TEST (01/16/2019 14:00 EST) Component Value Ref Test Analysis Performed At [facility] [employer] Range Method Time Signature Specimens A. Cervix and/or 01/22/2019 [facility] Endocervix, , 15:05 [facility] Thin[employer] Imaging LABORATORY System with SERVICES Manual Evaluation Specimen Satisfactory for 01/22/2019 [facility] Adequacy Evaluation - 15:05 [facility] transformation LABORATORY zone component SERVICES present General Negative for 01/22/2019 [facility] Categorization intraepithelial 15:05 [facility] lesion or LABORATORY malignancy SERVICES Attestation . 01/22/2019 [facility] Elect ronically 15:05 [facility] signed by OSCAR Singh SCT(ASCP) on 01/22/2019 at 1505 Clinical History NONE 01/22/2019 [facility] 15:05 [facility] LABORATORY SERVICES HPV The result for the Human Pap illomavirus (HPV) Detection-High Risk Types is Positive . E6 OR E7 mRNA from one or more types of HPV types 16,18,31,33,35,39,45,51,52,56,58,59,66, and 68 is detected by brandt 01/22/2019 [facility] scription mediated amplifica tion. High and intermediate risk HPV types are associated with most squamous intraepithelial lesions and cervical cancers. Testing was performed on specimen [id number] and 15 :05 EST CENTER was resulted on 01/22/2019 1503 EST by ANTHONY, LAB INSTRUMEN T RESULTS IN LABORATORY SERVICES Scanned Images 01/22/2019 [facility] 15:05 EST CENTER LABORATORY SERVICES Specimen Anatomical Collection Method Collection Time Receive d Time (Source) Location / / Volume Laterality Pap Test (Cervix 01/16/2019 14:00 019 9:08 and/or EST EST Endocervix) Yumiko Tavarez MD PATHOLOGY ORDERABLES Performing Organization Address City/State/ZIP Code Phon e Number [facility] [address] [place] [address] SERVICES documented in this encounter Visit Diagnoses Diagnosis Encounter for general adult medical exam ination without abnormal findings Unspecified general medical examination Encounter for gynecological examination (general) (routine) without abnormal findings Encounter for screening for malignant ne oplasm of cervix Screening for malignant neoplasm of the cervix documented in this encounter Care Teams Black Belt Relationship Specialty Start Date End Date Unknown, Provider, PCP - General 08/05/08 12/28/19 Yumiko Tavarez MD PCP - General 12/29/[address] [place] [phone] documented as of this encounter
--- OUTSIDE RECORDS SUMMARY | 2022-01-20 00:13 | XMS_ITS | Encounter Summary ---
:1965 Author Organization [facility] Address [address] [place] [address] Care Team Providers Name Role Phone Yumiko Tavarez MD Primary Care Provider Reason for Referral Medication Prior Authorization (48 Hrs (Urgent)) - Authorized Specialty Diagnoses / Procedures Referred By Contact Refer red To Contact Pharmacy Diagnoses Tardive dyskinesia Functional neurological symptom disorder with abnormal movement Alta Thakkar MD [facility] [address] [place], [place] [address] [address] [facility] [address] Phone: [phone] Referral ID Status Reason Start Expiration Visits Visits Date Date Requested Authorized [id number] Authorized Medication Prior 1 Authorization 1 Question Answer Medication to be Prior Authorized: Tetrabenazine: 12.5 mg TID (Plan to increase to 25mg TID if pt tolerating me dication well) Comments The purpose of this consult request is t o inform the scheduling staff that a medication needs to be prior-authorized before it is prescribed and/or administered. Reason for Visit Reason Onset Date Comments Medication Management 06/01/2020 pt needs assistanc e acquiring this medication Encounter Details Date Type Department Care Team Description 06/01/2020 Telephone [facility] Alta Thakkar MD Medication Management Neurology - [address] 1 [facility] (pt needs assistance 1 [facility] [place] [address] [place], Level 2 medication) [phone] [place] [address] (Wo rk) Social History Tobacco Use Types [...] Telephone Encounter - Kane Parker RN - 06/01/2020 1141 EDT Spoke with the pt to inform her that we received her message. Informed her that we are going to haveour PA team here work on the PA for the Tetrabenazine and will call her will an update in a few days. Ref 311 order placed Telephone Encounter - Geraldo Kwon - 06/01/2020 1003 EDT tetrabenazine 12.5 mg tablet Pt calls today to say she has not been able to get this medication from he pharmacy we sent the prescription to. We first sent this script to [facility] in [place], they do not do specialty meds. Then we sent it to [facility] yesterday. Pt called [facility] and they said to pt that her insurance co. will not pay for it. Pt uses [facility]. [facility] called pt's insurance company and the insurance said to go onto a certain website [employer] a prior authorization. Website: [employer] Insurance company wants to use [facility] once the prior auth is obtained. [employer] phone is [phone] documented in this encounter Plan of Treatment Upcoming Encounters Date Type Specialty Care Team Description 03/02/2022 Telemedicine Neurology Alta Thakkar M D 1 [facility] Level [address] [place], [place] [address] (Wo rk) Scheduled Referrals Name Type Priority Associated Diagnoses Order S chedule AMB MEDICATION PRIOR Outpatient Routine Tardive dys kinesia Expected: AUTHORIZATION Referral Functional 06/01/2020 neurological symptom (Approx imate) disorder with abnormal movement documented as of this encounter Visit Diagnoses Diagnosis Tardive dyskinesia - Primary Subacute dyskinesia due to drugs Functional neurological symptom disorder with abnormal movement Conversion disorder documented in this encounter Care Teams Advance Seal Delivery System Maintainer Relationship Specialty Start Date End Date Yumiko Tavarez MD PCP - General 12/29/19 [address] [place] [phone] documented as of this encounter
--- OUTSIDE RECORDS SUMMARY | 2022-01-20 00:13 | XMS_ITS | Encounter Summary ---
:1965 Author Organization [facility] Address [address] [place] [address] Care Team Providers Name Role Phone Yumiko Tavarez MD Primary Care Provider Encounter Details Date Type Department Care Team Description 05/20/2020 Travel Social History Tobacco Use Types Packs/Day Years Used Date Smoking Tobacco: Every Day Cigarettes 1 25 Sex Assigned at Date Recorded Not on file COVID-19 Exposure Response Date Recorded In the last month, have you been in contact with No / Unsure 05/20/2020 11:03 EDT someone who was confirmed or suspected to have Coronavirus / COVID-19? documented as of this encounter Plan of Treatment Upcoming Encounters Date Type Specialty Care Team Description 03/02/2022 Telemedicine Neurology Alta Thakkar M D 1 [facility] 2 [place], [place] [phone] (Wo rk) documented as of this encounter Visit Diagnoses Not on filedocumented in this encounter Care Teams Wet Roaster Relationship Specialty Start Date End Date Yumiko Tavarez MD PCP - General 12/29/19 [address] [place] [phone] documented as of this encounter
--- OUTSIDE RECORDS SUMMARY | 2022-01-20 00:13 | XMS_ITS | Encounter Summary ---
:1965 Author Organization [facility] Address [address] [place] [address] Care Team Providers Name Role Phone Unknown, Provider Primary Care Provider Encounter Details Date Type Department Care Team Description 03/08/2016 Results Only [facility]- Salvatore Martinez, [address] [place], [place] [address] (Wo rk) Social History Tobacco Use Types Packs/Day Years Used Date Smoking Tobacco: Never Assessed Sex Assigned at Date Recorded Not on file documented as of this encounter Plan of Treatment Upcoming Encounters Date Type Specialty Care Team Description 03/02/2022 Telemedicine Neurology Alta Thakkar M D 1 [facility] 2 [place], [place] [phone] (Wo rk) documented as of this encounter Procedures Procedure Name Priority Date/Time Associated Diagnosis Comme nts SURGICAL PATHOLOGY Routine 03/08/2016 20:45 Resul ts for this EST procedure are i n the results section. documented in this encounter Results SURGICAL PATHOLOGY (03/08/2016 20:45 EST) Component Value Ref Test Analysis Performed At [facility] Method Time Signature Pathology SURGICAL PATHOLOGY REPORT [facility] MEDICAL Report: Reports generated via electronic interface contain origina l data; CENTER however they are lacking the format of the original report. LABORATORY Caution should be taken when reading/interpreting unformat [facility] reports. SERVICES Name: ? CYDNEY ALMAZAN ? Accession #: ? [id number] ? : ? 1965 (Age: 51) ??F ? Collect Date: ? 03/08/2016 ? Location: ? [facility] ? Receive Date: ? 03/08/2016 ? Provider: SALVATORE ROSARIO MD Copy to: ? Final Pathologic Diagnosis: GALLBLADDER, CHOLECYSTECTOMY: - ??Chronic cholecystitis. - ??Cholelithiasis. Document reviewed and electronically signed by: AMARI BLANTON MD Report ??Date: 03/13/2016 12:21 By the signature above, the attending physician certifies th at he/she has personally conducted a gross and/or microscopic examin ation of the described specimens and rendered or confirmed the above diagnosis. Specimen(s) Received: Gallbladder Clinical History: Biliary colic Gross Description: ? Received in formalin labelled with proper patient identification (initials D, L) and gallbladder is an intact gallbladder (10.0 x 2.5 x 2.0 cm) with a segment of cystic duct (0.5 cm in length x 0.2 cm in diamete r). ? The serosa is painting-pur ple and smooth. The mucosa is dark green, velvety, and the wall is 0.2 cm in thickness. The cystic duct lumen is patent. The cystic duct margin is inked blue. S everal black to green smooth rhomboid choleliths are present ranging from 0.6 to 1.5 cm in greatest dimension. ? Two corporate sales representative se ctions and the inked en face cystic duct margin are submitted in 1. Dr. Corona 03/09/2016 6:00 PM End of Report Specimen Anatomical Collection Method Collection Time Receive d Time (Source) Location / / Volume Laterality 03/08/2016 20:45 03/08/2016 EST 20:45 EST Salvatore Rosario MD PATHOLOGY ORDERABLES Performing Organization Address City/State/ZIP Code Phon e Number [facility] [address] [place] [address] SERVICES documented in this encounter Visit Diagnoses Not on filedocumented in this encounter Care Teams Authorization Rep Relationship Specialty Start Date End Date Unknown, Provider, PCP - General 08/05/08 12/28/19 documented as of this encounter
--- OUTSIDE RECORDS SUMMARY | 2022-01-20 00:13 | XMS_ITS | Encounter Summary ---
:1965 Author Organization [facility] Address [address] [place] [address] Care Team Providers Name Role Phone Yumiko Tavarez MD Primary Care Provider Reason for Visit Reason Onset Date Comments Appointment Related 01/30/2020 Encounter Details Date Type Department Care Team Description 01/30/2020 Telephone [facility] Alta Thakkar MD Appointment Related Neurology - [address] 1 [facility] 1 [place] [address] [place], [place] [address] (Wo rk) Social History Tobacco [...] Notes Telephone Encounter - Geraldo Kwon - 02/13/2020 1110 EST This appt has been changed at provider request, to 02/23/20 at 1:15Pm onsite for NPV. Pt accepts this change and has arrival and visitor instructions. Telephone Encounter - Geraldo Kwon - 02/09/2020 1422 EST Pt accepts onsite FUR per Dr. Vermillion, scheduled for 02/16/20 at 2:15pm. Pt has location and arrival and visitor policies. If pt calls back to reschedule please schedule pt at next available onsite FUR30. Leave restrictionson. Telephone Encounter - Geraldo Kwon - 01/30/2020 1634 EST Outgoing call to schedule pt for onsite FUR on Sunday02/01/21 at next available opening. Pt voice mail is not set up yet, no message could be left. No iKONVER[employer] access. documented in this encounter Plan of Treatment Upcoming Encounters Date Type Specialty Care Team Description 03/02/2022 Telemedicine Neurology Alta Thakkar M D 1 [facility] 2 [place], [place] [phone] (Wo rk) documented as of this encounter Visit Diagnoses Not on filedocumented in this encounter Care Teams Band Cutting Machine Operator Relationship Specialty Start Date End Date Yumiko Tavarez MD PCP - General 12/29/19 [address] [place] [phone] documented as of this encounter
--- OUTSIDE RECORDS SUMMARY | 2022-01-20 00:13 | XMS_ITS | Encounter Summary ---
:1965 Author Organization [facility] Address [address] [place] [address] Care Team Providers Name Role Phone Yumiko Tavarez MD Primary Care Provider Reason for Referral Consult (Routine/Next Available) - Authorization Not Required Specialty Diagnoses / Procedures Referred By Contact Refer red To Contact Neurology Diagnoses Tardive dyskinesia Functional neurological symptom disorder with abnormal movement Anxiety Alta Thakkar MD Kennedy, Suzanne Maria, 1 [facility] [place], Level 2 1 [facility] 2 [phone] [place] [address] Phone: Fax: Referral ID Status Reason Start Expiration Visits Visits Date Date Requested Authorized [id number] Authorization Specialty 1 Not Required Services 1 Required Question Answer Reason for Request: Patient with history of anxi ety, depression, PTSD who likely has TD from remote antipsychotic use; also likely has some functional overlay as well with slow berger nd tremor. Reason for Visit Reason Comments Follow-up Encounter Details Date Type Department Care Team Description 05/26/2020 Telemedicine [facility] Alta Thakkar MD Tardive dyskinesia (Primary Dx); Neurology - S 1 [facility] Functional neurological symptom disorder with abnormal movement; [facility] Anxiety 1 [facility], Level 2 [place], [place] [id number] [place] [address] [phone] Social History Tobacco Use Types Packs/Day [...] / COVID-19? documented as of this encounter Ordered Prescriptions Prescription Sig Dispensed Refills Start Date End Date tetrabenazine 12.5 mg Take 1 Tab by 90 Tab 3 05/26/2020 05/31/2020 tablet mouth 3 times daily. documented in this encounter Progress Notes Alta Thakkar MD - 05/26/2020 1030 EDT Images from the original note were not included. Type of visit: Follow-up visit Clinician Requesting Consultation: No referring provider defined for this encounter. Phone: N/A Fax: Primary Software Business Analyst: Yumiko Tavarez [address] [place] [phone] ASSESSMENT & PLAN / RECOMMENDATIONS 1. Tardive dyskinesia 2. Functional neurological symptom disorder with abnormal movement 3. Anxiety Miguelina Morales is a 55 y.o. woman who returns to the [facility] Disorders clinic for evaluation and management of involuntary movements, likely tardive dyskinesia. She reports hyperkinetic movements since at least 2011, which started distally in the toes and progressed proximally. She was able to review her medication history and reports having started on multiple medications at that time to control anxiety/mood, including aripiprazole and brexpiprazole, which were subsequently discontinued many years ago. Based on the appearance of her movements and the additional history that was obtained, I believe that at least part of her issue stems from tardive dyskinesia related to these neuroleptic medications. Interestingly, she has been on two separate medications that would have treated these symptoms (amantadine, tetrabenazine) though neither controlled her symptoms at the prescribed dosages. We agreed today to another trial of tetrabenazine, with plans to titrate to a higher dose if needed. I did also bridge the concept that some of her worsening of symptoms may be related to a functional overlay, specifically because of her history of PTSD and the fact that she has gone for so many yearswithout a clear neurological diagnosis. I suspect that this may be contributing to her worsening symptoms over time, as I would not expect tardive dyskinesia to necessarily worsen if the causative medications have been discontinued. She was amenable to a one-time visit with Dr. Cat Dorantes, a psychiatrist that commonly works with our movement disorder patients, to discuss the effects of this chronic issue on her physical and emotional well-being. # Restart tetrabenazine 12.5mg three times daily for 2 weeks; if tolerating and symptoms persist, will plan to increase to 25mg TID. Studies have shown it to be safe and effective up to 200mg daily, though will probably plan to max out at 150mg daily depending on how she responds. She will monitor forside effects: Worsening mood, parkinsonism, etc # Consider valbenazine if tetrabenazine infective or not approved # Referral to Dr. Dorantes to discuss symptoms, including anxiety and PTSD Return to clinic: 2 months (Telehealth) SUBJECTIVE Reason for consultation/ Chief complaint: Tardive dyskinesia History of Presenting Illness (HPI): Miguelina Morales is a 55 y.o. woman who was referred to the [facility] clinic for evaluation and [...] the phenomenology appeared more parkinsonian so a RIMA was ordered (positive). Shetried carbidopa-levodopa but was so nauseated from it that she decided not to continue. She is not sure if symptoms (tremor, stiffness, slowness) improved. They recently tried carbidopa-levodopa again,but same thing happened. Only thing that makes it better is sleeping - movements stop entirely. She had interrupted sleep, but takes mediactions to help. She has also tried amantadine at some point last year - made her faint. Tetrabenazine - no benefits,no side effects. Years ago took medication for [...] time for pain. Interval history (last visit 02/23/2020 on-site): Since the last visit, she was able to report psychiatric medications that she had taken in the past, I believe from different psychiatry notes that shestill has in her possession. These include: Lexapro 20mg Remeron 45mg Abilify 5mg, 30mg Sertraline 100mg Rozeram 8mg Rexulti 2mg Cymbalta 30mg Xanax 2, 3 and 4 mg Clonazepam 1 and 2mg. She does note increased anxiety, which was the issue when all of these symptoms started (prompting the treatment with aripiprazole). She had a DaTScan last week which was normal, consistent with my examination that did not show parkinsonism. She is relieved to hear this. She is still bothered by the tremor in the hand - she feels like tardive dyskinesia does not explainthis. The feet frequently move as well. Previous medication trials for dyskinesia / chorea: Amantadine: did not work up to 100mg BID Tetrabenazine: did not work up to 25mg BID ROS: A comprehensive 13 system review was [...] difficulty - has dysphagia, referral sent to [facility] Current Medications: Outpatient Medications Marked as Taking for the 05/26/20 encounter (Telemedicine) with Alta Thakkar MD Medication Sig Dispense Refill ??? calcium carbonate (TUMS) 200 mg calcium (500 mg) tablet,chewable Take 2 Tabs by mouth daily. ??? cholecalciferol (VITAMIN D3) 1,250 mcg (50,000 unit) capsule Take 50,000 Units by mouth once a week. ??? cyanocobalamin 1,000 mcg tablet Take 1,000 mcg by mouth daily. ??? folic acid (FOLVITE) 1 mg tablet Take 1 mg by mouth daily. ??? naloxone (NARCAN) 4 mg/actuation nasal spray 1 [place] by nasal route as needed. ??? omeprazole (PRILOSEC) 20 mg capsule TK 1 C PO D ??? oxyCODONE-acetaminophen (PERCOCET) 10-325 mg per tablet Take 1 Tab by mouth every 6 hours as needed. ??? 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 OBJECTIVE Vital Signs There were no vitals [...] and expressive language. No hypophonia, no dysarthria. Face appear symmetric at rest and with activation, no hypomimia. Hearing is intact to casual conversation during video visit. Normal bulk in all limbs. Full neurological examination could not be completed due to Telehealth limitations. From what I could assess, she had normal and symmetric spontaneous movements of the extremities. Directed movements -like finger tapping and hand opening/closing - were full and symmetric. She did appear to have frequent involuntary movements throughout the face, torso, and upper extremities. There were mild orolingual movements, writhing movements of the shoulders, and fine dyskinetic movements of the fingers with arms extended. DATA NM IRMA SPECT (05/20/2020) -- images were personally reviewed: No evidence of parkinsonian disorder. NM IRMA SPECT (01/10/2017) -- read only: Moderately decreased activity in the left caudate and severely decreased activity within the left putamen. Relatively normal activity within the right caudate andputamen. ATTESTATION A total of 40 minutes were spent on this visit. Time dedicated to this visit was spent on the following activities: Personal review of available imaging Patient/hospice care sales consultant education Scanned health information available from the referring and/or primary provider(s) Review of the pertinent information in the electronic health record Care plan formulation Supportive counseling Thank you for the opportunity to participate in this patient's care. If there are any questions, please contact the office at [phone]. Alta Thakkar MD Attending Physician, Movement Disorders Department of Neurology documented in this encounter Plan of Treatment Upcoming Encounters Date Type Specialty Care Team Description 03/02/2022 Telemedicine Neurology Alta Thakkar M D 1 [facility] 2 [place], [place] [address] (Wo rk) Scheduled Referrals Name Type Priority Associated Diagnoses Order S chedule AMB CONS/FOLLOW UP Outpatient Referral Routine Tardive d yskinesia Ordered: PSYCH (ADULT Functional 05/26/2020 PC/FAM neurological symptom MED/OB/NEURO OR disorder with EXTERNAL REF) abnormal movemen t Anxiety documented as of this encounter Visit Diagnoses Diagnosis Tardive dyskinesia - Primary Subacute dyskinesia due to drugs Functional neurological symptom disorder with abnormal movement Conversion disorder Anxiety Anxiety state, unspecified documented in this encounter Discontinued Medications Medication Sig Discontinue Reason Start Date End Date iodine strong (LUGOLS) 5 Take 2 mls (100 mg Therapy completed 04/0705/26/2020 % solution iodine) orally 1 hour prior to exam. documented as of this encounter Care Teams Warehouse Shipping Receiving Clerk Relationship Specialty Start Date End Date Yumiko Tavarez MD PCP - General 12/29/[address] [place] [phone] documented as of this encounter
--- OUTSIDE RECORDS SUMMARY | 2022-01-20 00:13 | XMS_ITS | Encounter Summary ---
:1965 Author Organization [facility] Address [address] [place] [address] Care Team Providers Name Role Phone Unknown, Provider Primary Care Provider Yumiko Tavarez MD Primary Care Provider Reason for Visit Reason Onset Date Comments Appointment Related 11/18/2018 Encounter Details Date Type Department Care Team Description 11/18/2018 Telephone [facility] Unknown, Provider, [place] ointment Related Neurology - S Stacie malhotra MD 1 [facility] [place] [address] [phone] Social History Tobacco Use Types Packs/Day Years [...] Notes Telephone Encounter - Kena Marshall - 11/18/2018 1518 EDT Alta from referring office called to see appt scheduled. Advised that is being triaged right now documented in this encounter Plan of Treatment Upcoming Encounters Date Type Specialty Care Team Description 03/02/2022 Telemedicine Neurology Alta Thakkar M D 1 [facility], Level 2 [place], [place] [phone] (Wo rk) documented as of this encounter Visit Diagnoses Not on filedocumented in this encounter Care Teams Bee Tender Relationship Specialty Start Date End Date Unknown, Provider, PCP - General 08/05/08 12/28/19 Yumiko Tavarez MD PCP - General 12/29/19 [address] [place] [phone] documented as of this encounter
--- OUTSIDE RECORDS SUMMARY | 2022-01-20 00:13 | XMS_ITS | Encounter Summary ---
:1965 Author Organization [facility] Address [address] [place] [address] Care Team Providers Name Role Phone Yumiko Tavarez MD Primary Care Provider Reason for Visit Reason Onset Date Comments Prior Auth, Medication 08/10/2020 Ingrezza 40 & 80m g Prior Auth, Medication 08/10/2020 Austedo 48mg/day Encounter Details Date Type Department Care Team Description 08/10/2020 Telephone [facility] Alta Thakkar MD Prior Auth, Medication Neurology - S [address] 1 [facility] (Ingrezza 40 & 80mg); 1 [facility] [place], [place] [address] [place], Level 2 (Austedo 48mg/day) [phone] [place] [phone] (Wo rk) Social History Tobacco Use Types Packs/Day Years Used Date Smoking Tobacco: Every Day Cigarettes 1 25 Smokeless Tobacco: Never Sex Assigned at Date Recorded Not on file documented as of this encounter Ordered Prescriptions Prescription Sig Dispensed Refills Start Date End Date deutetrabenazine (AUSTEDO) 6 Take 6 mg by 49 Tablet 0 08/2609/10/2020 mg tablet mouth daily for 7 days, THEN 6 mg 2 times daily for 21 days. documented in this encounter Miscellaneous Notes Telephone Encounter - Bernard Kiarissakarthik - 08/10/2020 0955 EDT Prior Authorization Approval Medication: Austedo 6mg Approved: 08/19/20 through 08/18/21 Authorization Number: [id number] Required Pharmacy: [facility] Preferred [facility]acy: [facility] Prior Authorization Submission Process Medication: Austedo 6mg Insurance: RxBenefits Date PA Request Received: 08/11/20 PA Submission Date: 08/18/20 EOC ID: [id number] Submitted by: Gerry Prior Authorization Approval Medication: Austedo 12mg Approved: 08/13/20 through 08/12/21 Authorization Number: [id number] Required Pharmacy: [facility] Preferred [facility]acy: [facility] Prior Authorization Submission Process Medication: Austedo 12mg - 48mg/day Insurance: MAYELA - RxBenefits Date PA Request Received: 08/11/20 PA Submission Date: 08/11/20 EOC ID: [id number] Submitted by: Gerry documented in this encounter Plan of Treatment Upcoming Encounters Date Type Specialty Care Team Description 03/02/2022 Telemedicine Neurology Alta Thakkar M D 1 [facility] 2 [place], [place] [phone] (Wo rk) documented as of this encounter Visit Diagnoses Not on filedocumented in this encounter Discontinued Medications Medication Sig Discontinue Reason Start Date End Date tetrabenazine 25 mg Take 1.5 tablets 3 Alternate therapy 07/27/2020 08/26/2020 tablet tablet times daily for 2 weeks, then increase to 2 tablets three times daily documented as of this encounter Care Teams Uat Tester Relationship Specialty Start Date End Date Yumiko Tavarez MD PCP - General 12/29/19 [address] [place] [phone] documented as of this encounter
--- OUTSIDE RECORDS SUMMARY | 2022-01-20 00:13 | XMS_ITS | Encounter Summary ---
:1965 Author Organization [facility] Address [address] [place] [address] Care Team Providers Name Role Phone Yumiko Tavarez MD Primary Care Provider Reason for Visit Reason Comments New Patient Visit Encounter Details Date Type Department Care Team Description 01/23/2020 Telemedicine [facility] Alta Thakkar MD No Show Neurology - S [address] 1 [facility] 1 [facility] 2 [place] [address] [place], [place] [phone] (Wo rk) Social History Tobacco Use Types Packs/Day Years Used Date Smoking Tobacco: Never Assessed Sex Assigned at Date Recorded Not on file documented as of this encounter Plan of Treatment Upcoming Encounters Date Type Specialty Care Team Description 03/02/2022 Telemedicine Neurology Alta Thakkar M D 1 [facility] 2 [place], [place] [phone] (Wo rk) documented as of this encounter Visit Diagnoses Not on filedocumented in this encounter Care Teams Activities Assistant Relationship Specialty Start Date End Date Yumiko Tavarez MD PCP - General 12/29/19 [address] [place] [phone] documented as of this encounter
--- OUTSIDE RECORDS SUMMARY | 2022-01-20 00:13 | XMS_ITS | Encounter Summary ---
:1965 Author Organization [facility] Address [address] [place] [address] Care Team Providers Name Role Phone Yumiko Tavarez MD Primary Care Provider Reason for Visit Reason Onset Date Comments Medication Management 09/16/2020 Encounter Details Date Type Department Care Team Description 09/16/2020 Telephone [facility] Alta Thakkar MD Medication Management Neurology - S [address] 1 [facility] 1 [place] [address] [facility], [place] [address] (Wo rk) Social History Tobacco Use Types Packs/Day Years Used Date Smoking Tobacco: Every Day Cigarettes 1 25 Smokeless Tobacco: Never Sex Assigned at Date Recorded Not on file documented as of this encounter Miscellaneous Notes Telephone Encounter - Cristel Doss RN - 09/16/2020 1714 EDT Spoke with Yuriy pharmacist at [facility], he was unsure of what questions the previous pharmacist had,as the directions are clear for the dosing increase of Austedo, he will get this processed for shipment. Telephone Encounter - Eric Ivey - 09/16/2020 0917 EDT Jade calling in regards to Austedo script. She is looking for a call back with instruction clarification and to confirm the increase. Also wondering where in therapy this patient is. Ref: [id number] documented in this encounter Plan of Treatment Upcoming Encounters Date Type Specialty Care Team Description 03/02/2022 Telemedicine Neurology Alta Thakkar M D [address] [facility] 2 [place], [place] [phone] (Wo rk) documented as of this encounter Visit Diagnoses Not on filedocumented in this encounter Care Teams Turning Sander Tender Relationship Specialty Start Date End Date Yumiko Tavarez MD PCP - General 12/29/19 [address] [place] [phone] documented as of this encounter
--- OUTSIDE RECORDS SUMMARY | 2022-01-20 00:13 | XMS_ITS | Encounter Summary ---
:1965 Author Organization [facility] Address [address] [place] [address] Care Team Providers Name Role Phone Yumiko Tavarez MD Primary Care Provider Encounter Details Date Type Department Care Team Description 03/28/2021 Ambulatory Pharmacy [facility] Dante Vaughn, [facility] Ambulatory Pharmacy - [address] [facility] [address] [place] [phone] Social History Tobacco Use Types Packs/Day Years Used Date Smoking Tobacco: Every Day Cigarettes 1 25 Smokeless Tobacco: Never Sex Assigned at Date Recorded Not on file documented as of this encounter Plan of Treatment Upcoming Encounters Date Type Specialty Care Team Description 03/02/2022 Telemedicine Neurology Alta Thakkar M D 1 [facility] 2 [place], [place] [phone] (Wo rk) documented as of this encounter Visit Diagnoses Not on filedocumented in this encounter Care Teams Pipeline Construction Inspector Relationship Specialty Start Date End Date Yumiko Tavarez MD PCP - General 12/29/19 [address] [place] [phone] documented as of this encounter
--- OUTSIDE RECORDS SUMMARY | 2022-01-20 00:13 | XMS_ITS | Encounter Summary ---
:1965 Author Organization [facility] Address [address] [place] [address] Care Team Providers Name Role Phone Yumiko Tavarez MD Primary Care Provider Reason for Visit Radiology Services (Routine) - Receiving Office to Obtain Authorization Specialty Diagnoses / Procedures Referred By Contact Refer red To Contact Nuclear Medicine Diagnoses Parkinsonism, unspecified Parkinsonism type (HCC) Alta Thakkar MD Procedures NM DATSCAN WITH SPECT/CT NM DATSCAN SPECT [address] [place] [address] 2 [place] [address] Referral ID Status Reason Start Expiration Visits Visits Date Date Requested Authorized [id number] Receiving Office 04/07/2020 1 1 to Obtain Authorization Encounter Details Date Type Department Care Team Description 05/20/2020 Hospital Encounter edical Center Radiology Nuclear Medicine and PET - [place] [phone] Social History Tobacco Use Types Packs/Day Years [...] 0 tablet daily. naloxone (NARCAN) 4 1 [place] by nasal 0 mg/actuation nasal spray route [...] Telemedicine Neurology Alta Thakkar M D 1 [facility] 2 [place], [place] [phone] (Wo rk) documented as of this encounter Procedures Procedure Name Priority Date/Time Associated Diagnosis Comme nts NM DATSCAN WITH Routine 05/20/2020 15:56 Parkinsonism, Results for this SPECT/CT EDT unspecified procedure are i n Parkinsonism type the result s ([facility]) section. documented in this encounter Results NM [...] on filedocumented in this encounter Care Teams Brush Cutter Relationship Specialty Start Date End Date Yumiko Tavarez MD PCP - General 12/29/[address] [place] [phone] documented as of this encounter
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
--- OUTSIDE RECORDS SUMMARY | 2022-01-20 00:13 | XMS_ITS | Encounter Summary ---
:1965 Author Organization [facility] Address [address] [place] [address] Care Team Providers Name Role Phone Yumiko Taavrez MD Primary Care Provider Reason for Visit Reason Onset Date Comments Medication Management 09/10/2020 Austedo Initiation /Dose Increase Encounter Details Date Type Department Care Team Description 09/10/2020 Refill [facility] Blanca Vaughn RPH Medication Management Neurology - [address] [facility] [address] (Austedo Initiation/Dose [address]) [place] [address] [place], [place] [phone] Social History Tobacco Use Types Packs/Day Years Used Date Smoking Tobacco: Every Day Cigarettes 1 25 Smokeless Tobacco: Never Sex Assigned at Date Recorded Not on file documented as of this encounter Ordered Prescriptions Prescription Sig Dispensed Refills Start Date End Date deutetrabenazine 12 mg Take 1 Tablet by 49 Tablet 0 021 10/05/2020 tablet mouth every morning for 7 days, THEN 1 Tablet 2 times daily for 21 days. documented in this encounter Miscellaneous Notes Telephone Encounter - Blanca Vaughn RPH - 09/10/2020 1318 EDT Telephone call to patient to discuss Austedo initiation. Patient states she started the drug ~08/30, she is currently taking 6mg PO BID. Miguelina denied any and all side effects at this dose, but is not certain it is helping yet. Dose to be increased per the previously discussed titration: Week 3: 12mg QAM, 6mg QPM Week 4: 12mg PO BID Patient instructed to continue her current dose until the 12mg Rx arrives, not beginning the week 3 dosing until then so she does not run out of drug abruptly. I will follow up with her in 1-2 weeks toassess tolerance and therapeutic response. Miguelina will call in the meantime should she experience moodworsening, sedation, anticholinergic effects, or experience symptomatic worsening not managed by theAustedo. Blanca Vaughn, Pharm.D. [facility] Ambulatory Pharmacist Clinician 09/10/2020 documented in this encounter Plan of Treatment Upcoming Encounters Date Type Specialty Care Team Description 03/02/2022 Telemedicine Neurology Alta Thakkar M D 1 [facility] [address] [place], [place] [phone] (Wo rk) documented as of this encounter Visit Diagnoses Not on filedocumented in this encounter Discontinued Medications Medication Sig Discontinue Reason Start Date End Date deutetrabenazine (AUSTEDO) 6 Take 6 mg by Dose adjustment 1 09/10/2020 mg tablet mouth daily for 7 days, THEN 6 mg 2 times daily for 21 days. documented as of this encounter Care Teams Gas Engine Operator Generators Relationship Specialty Start Date End Date Yumiko Tavarez MD PCP - General 12/29/[address] [place] [phone] documented as of this encounter
--- OUTSIDE RECORDS SUMMARY | 2022-01-20 00:13 | XMS_ITS | Encounter Summary ---
:1965 Author Organization [facility] Address [address] [place] [address] Care Team Providers Name Role Phone Yumiko Tavarez MD Primary Care Provider Reason for Visit Reason Comments New Patient Visit Referral (Routine) - Authorization Not Required Specialty Diagnoses / Procedures Referred By Contact Refer red To Contact Neurology Diagnoses Parkinson's disease ([facility]) ([facility]) Yumiko Tavarez MD Gupta, Deepak K, MD [address] [place] [phone] [place] [address], Level 2 [place] [address] Phone: Fax: Referral ID Status Reason Start Expiration Visits Visits Date Date Requested Authorized [id number] Authorization Not 1 1 Required Encounter Details Date Type Department Care Team Description 02/23/2020 Office Visit [facility] Medical [place] Alta Thakkar MD Involuntary movements (Primary Dx); Neurology - S 1 [facility] Tremor; [facility] Peripheral polyneuropathy; 1 [facility], Level 2 PTSD (post-traumatic stress disorder) [place] [address] [place] [phone] (Wo rk) Social History Tobacco Use [...] 02/23/2020 1318 EST Oxygen Saturation 100% 02/23/2020 131 EST Inhaled Oxygen Concentration - - Weight 66.9 kg (147 lb 6.4 oz) 02/23/2020 1318 EST Height 149.9 cm (4' 11) 02/23/2020 1318 EST Body Mass Index 29.77 02/23/2020 1318 EST documented in this encounter Progress Notes Alta Thakkar MD - 02/23/20201314 EST Images from the original note were not included. Type of visit: New Patient Consultation Clinician Requesting Consultation: Yumiko Tavarez MD [address] [place] [address] Primary Liquid Sugar Melter: Yumiko Tavarez [address] [place] [phone] ASSESSMENT & PLAN / RECOMMENDATIONS 1. Involuntary movements 2. Tremor 3. Peripheral polyneuropathy 4. PTSD (post-traumatic stress disorder) Miguelina Morales is a 55 y.o. woman who was referred to the [facility] Movement Disorders clinic for evaluation and management of involuntary movements and parkinsonism. She reports at least 8 years of hyperkinetic movements, which started distally in the toes and progressed proximally. Three years ago, she was evaluated by neurologists at [facility] and had a thorough evaluation for chorea, including HD genetic testing (results were negative). At subsequent evaluations, the phenomenology of her movements appeared more parkinsonian, so a DaTscan was obtained (results showed asymmetric uptake with decreased activity in the left caudate and putamen). She tried dopaminergic medications, but could not tolerate levodopa. Today, she is here for another opinion regarding the etiology of her symptoms. Her examination shows mainly hyperkinetic movements, with irregular patterns of writhing and tapping in the feet and legs, and a more regular but very slow rhythmic movement at the right wrist. She is able to ambulate unassisted, however tends to have irregular foot placement and veers from side to side. She demonstrates astasia-abasia gait when walking in tandem, and is actually able to stand with her feet in tandem without falling. With regards to phenomenology, the hyperkinetic movements seen today are most consistent with choreoathetosis. That said, at times they appear distractible and entrainable, and the pattern of the movement changes from a choreic writhing to more rhythmic but slow tapping. There is also variability in the origin of her movements - sometimes at the wrist, other times in the MCP or PIP joints of the hands, sometimes in the toes, ankles, or hips. In our discussion today, she mentions perhaps having been on antipsychotic medications around the time the movements started, but could not tell me any specific medications. She will work on finding out the names of any medicine she has been on for her mood. We discussed the concept of tardive dyskinesia, which is involuntary hyperkinetic movement related to use of dopamine-blocking medications, which can appear or worsen after stopping the drug. She did have a trial of tetrabenazine and amantadine, however, which did not improve her symptoms. Interestingly, I don't see any signs of parkinsonism today - tone is completely normal even with contralateral activation, repetitive movements are labored but actually have good amplitude and speed. Chandler not sure what to make of this in the setting of the abnormal IRMA. There has been suggestion that the movement in the right wrist is a feature of parkinsonism, however that movement appears to be tooslow to be consistent with a parkinsonian resting tremor and actually abates with ambulation. She has good facial expression and spontaneous movements as well. I would like to review her imaging personally, and the patient provided consent to be video recordedfor review in her Movement Disorders video rounds. I would like to see my colleagues here have any other thoughts regarding the phenomenology and etiology of her condition. We did briefly discuss the po ssibility that this could be related to a connectivity problem rather than a structural problem (i.e. functional neurological disorder). Another piece of her history that could be consistent with this was her transient seizure disorder --she was medicated for only 2 years and now off medications entirely without recurrence of symptoms. This may also suggest a non-epileptic etiology. # She will provide a list of any psychiatric medications she has taken in the past # She consented to playing video recorded today, and I will review this along with her imaging and laboratory analysis with my colleagues # Will try to obtain records from [facility] (psychiatry) # If she has taken neuroleptics in the past, I might be more convinced that there is some Return to clinic: 2-3 months (can be Telehealth) SUBJECTIVE Reason for consultation/ Chief complaint: Parkinsonism, involuntary movements History of Presenting Illness (HPI): Miguelina Morales is a 55 y.o. woman who was referred to the [facility] Movement Disorders clinic for evaluation and management of possible parkinsonismand involuntary movements. Accompanied by: self Handedness: right-handed About 8 years ago, she started noticing involuntary movmeents in both [...] on methadone at the time for pain. ROS: A comprehensive 13 system review was [...] difficulty - has dysphagia, referral sent to [facility] Current Medications: Outpatient Medications Marked as Taking for the 02/23/20 encounter (Office Visit) with Alta Thakkar MD Medication Sig Dispense Refill ??? calcium carbonate (TUMS) 200 mg calcium (500 mg) tablet,chewable Take 2 Tabs by mouth. ??? cholecalciferol (VITAMIN D3) 1,250 mcg (50,000 unit) capsule Take 50,000 Units by mouth once a week. ??? cyanocobalamin 1,000 mcg tablet Take 1,000 mcg by mouth daily. ??? folic acid (FOLVITE) 1 mg tablet Take 1 mg by mouth daily. ??? naloxone (NARCAN) 4 mg/actuation nasal spray 1 [place] by nasal route as needed. ??? 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 General Physical Examination Well-appearing woman, in no acute distress. Pleasant and interactive. Eyes without icterus or injection. Normocephalic, atraumatic head and neck. Neurological Examination Mental status: Alert appropriate and oriented Normal recall of recent and remote personal and medical history. Normal insight and judgment. Speech/Language: Fluent clear speech, intact comprehensive and expressive language. No hypophonia, no dysarthria. Cranial nerves: Face appear symmetric at rest and with activation. Normal symmetric facial sensation to touch with patient's own hand Hearing is intact to casual conversation during video visit Tongue, palate, sternocleidomastoid, and shoulder shrug function are normal. Shoulder elevation is symmetric bilaterally. Motor examination: Normal bulk in all limbs. Full strength in all muscle groups tested. Tone is completely normal when she is relaxed, and does not augment with contralateral activation. In the right leg, movements are mostly writhing, but can also be rhythmic tapping. The frequency of these movements is variable during the examination - at times there is a rapid tapping of her ankle while her toes are planted on the ground and she is performing other maneuvers, other times there are alternating bouncing movements of both feet on and off the ground, other times there is a much slowertapping of the toes. Another movement entirely is a horizontal movement of the foot along the plane of the floor. When she rises to a standing position, she holds the right wrist slightly flexed, and there is a slow flexion/extension motion at the right wrist. Other times, this movement is flexion/extension at theMCP/PIP joints.. There is also another movement that is more irregular and writing, like chorea. Repetitive movements of the upper and lower extremities were labored, but actually did not appear todecrement. Spontaneous movements did not appear bradykinetic, and she moves both arms rather symmetrically. When standing in [place], she has bouncing of the knees bilaterally. She is able to close her eyes and stand for a few seconds - her upper torso sways dramatically but no movement in the legs and she does not fall over. During that maneuver, there is a flapping tremulous movement at the bilateral MCP joints. Reflexes: Biceps Triceps BR Patellar Achilles Left 2+ 1+ 2+ 1+ 1+ Right 1+ 1+ 1+ 1+ 1+ Toes downgoing bilaterally. Sensory examination: Reports decreased sensation in the lower extremities bilaterally - to vibration, sharp. Intact lighttouch, JPS. Station/Gait: Good stride length and thad. She does cross her feet frequently when walking at first. There are times however that she is able to walk essentially normally. She attempts tandem and can actually take 3-4 steps without falling. She can stand with her feet in tandem for a few seconds as well. DATA NM IRMA SPECT (01/10/2017) -- read only: Moderately decreased activity in the left caudate and severely decreased activity within the left putamen. Relatively normal activity within the right caudate andputamen. ATTESTATION A total of 60 minutes were spent on this visit. Time dedicated to this visit was spent on the following activities: Review of the available [employer] electronic health record Scanned health information available from the referring and/or primary provider(s) Patient/director day care center education Care plan formulation Supportive counseling Thank you for the opportunity to participate in this patient's care. If there are any questions, please contact the office at [phone]. Alta Thakkar MD Attending Physician, Movement Disorders Department of Neurology documented in this encounter Plan of Treatment Upcoming Encounters Date Type Specialty Care Team Description 03/02/2022 Telemedicine Neurology Alta Thakkar M D 1 [facility] Level 2 [place], [place] [phone] (Wo rk) documented as of this encounter Visit Diagnoses Diagnosis Involuntary movements - Primary Abnormal involuntary movements Tremor Abnormal involuntary movements Peripheral polyneuropathy Unspecified hereditary and idiopathic pe ripheral neuropathy PTSD (post-traumatic stress disorder) Posttraumatic stress disorder documented in this encounter Historical Medications This list may reflect changes made after this encounter. Medication Sig Dispensed Refills Start Date End Date zolpidem (AMBIEN) 10 mg Take 10 mg by 0 tablet mouth. pregabalin (LYRICA) 150 mg TK ONE C PO BID 0 01/05 capsule pregabalin (LYRICA) 50 mg TK ONE C PO D. TAKE 0 1 04/03/2019 capsule IN THE MORNING WITH 150 MG TO EQUAL 200 MG oxyCODONE-acetaminophen Take 1 Tab by mouth 0 (PERCOCET) 10-325 mg per every 6 hours. tablet omeprazole (PRILOSEC) 20 mg Take 20 mg by mouth 0 12/17/2019 capsule every morning. naloxone (NARCAN) 4 1 [place] by nasal 0 mg/actuation nasal spray route as needed. folic acid (FOLVITE) 1 mg Take 1 mg by mouth 0 tablet daily. cyanocobalamin 1,000 mcg Take 1,000 mcg by 0 tablet mouth daily. cholecalciferol (VITAMIN D3) Take 50,000 Units 0 1,250 mcg (50,000 unit) by mouth once a capsule week. calcium carbonate (TUMS) 200 Take 2 Tabs by 0 mg calcium (500 mg) mouth 2 times tablet,chewable daily. added in this encounter Care Teams Refrigerated Company Driver Relationship Specialty Start Date End Date Yumiko Tavarez MD PCP - General 12/29/[address] [place] [phone] documented as of this encounter
--- OUTSIDE RECORDS SUMMARY | 2022-01-20 00:13 | XMS_ITS | Encounter Summary ---
:1965 Author Organization [facility] Address [address] [place] [address] Care Team Providers Name Role Phone Yumiko Tavarez MD Primary Care Provider Reason for Visit Reason Onset Date Comments Appointment Related 04/06/2020 Encounter Details Date Type Department Care Team Description 04/06/2020 Telephone [facility] Alta Thakkar MD Appointment Related Neurology - S [address] 1 [facility] 1 [place] [address] [facility] [place] [phone] (Wo rk) Social History Tobacco [...] Notes Telephone Encounter - Kena Marshall - 04/06/2020 1054 EST Called and rescheduled 05/19/20 FUR/zoom appt with Dr Thakkar to 05/26/20 at 10:30am 3 mo FUR/zoom [email or web address] Meeting ID: [id number] Password: [id number] documented in this encounter Plan of Treatment Upcoming Encounters Date Type Specialty Care Team Description 03/02/2022 Telemedicine Neurology Alta Thakkar M D 1 [facility], Level 2 [place], [place] [phone] (Wo rk) documented as of this encounter Visit Diagnoses Not on filedocumented in this encounter Care Teams Rules Examiner Relationship Specialty Start Date End Date Yumiko Tavarez MD PCP - General 12/29/19 [address] [place] [phone] documented as of this encounter
--- OUTSIDE RECORDS SUMMARY | 2022-01-20 00:13 | XMS_ITS | Encounter Summary ---
:1965 Author Organization [facility] Address [address] [place] [address] Care Team Providers Name Role Phone Yumiko Tavarez MD Primary Care Provider Encounter Details Date Type Department Care Team Description 03/12/2020 Lab Requisition [facility] Yoli Jeong, En counter for other Pathology & MD general examination Laboratory Medicine [address] [facility] [address] [place] [phone] Social History Tobacco Use Types Packs/Day Years Used Date Smoking Tobacco: Every Day Cigarettes 1 25 Sex Assigned at Date Recorded Not on file documented as of this encounter Plan of Treatment Upcoming Encounters Date Type Specialty Care Team Description 03/02/2022 Telemedicine Neurology Alta Thakkar M D 1 [facility], Level 2 [place], [place] [phone] (Wo rk) documented as of this encounter Procedures Procedure Name Priority Date/Time Associated Diagnosis Comme nts SURGICAL PATHOLOGY Today 03/12/2020 15:35 Encounter for othe r Results for this EST general examination procedur e are in the results section. documented in this encounter Results SURGICAL PATHOLOGY (03/12/2020 15:35 EST) Component Value Ref Test Analysis Performed At [facility] Range Method Time Signature Final A. ENDOCERVIX, CURETTAGE: 03/17/2020 [facility] Diagnosis - Detached fragment of atypical squamous epithelium. S ee comment. 16:48 EST CENTER - Scant benign endocervical epithelium. LABORATORY SERVICES B. CERVIX, 3 O'CLOCK, BIOPSY: - Squamous mucosa with reactive epithelial change. - Chronic cervicitis Diagnosis Within the 03/17/2020 [facility] Comment endocervical 16:48 [facility]ENTER curettage (A), LABORATORY there is an SERVICES isolated fragment of squamous epithelium with cytologic changes that are suspicious but not fully diagnostic for a low-grade squamous intraepithelial lesion (CODI 1). Deeper sections have been examined. Attestation There was 03/17/2020 [facility] Elect ronically significant 16:48 [facility] CENTER signed b y resident/fellow LABORATORY Wild Baeza involvement in the SERVICES Lucero galvez MD on diagnostic 03/17/2020 at evaluation of this 1 648 case. By the signature below, the attending physician certifies that they have personally conducted a gross and/or microscopic examination of the described specimens and rendered or confirmed the above diagnosis. Clinical ASCUS, (+) HPV 03/17/2020 [facility] History 16:48 [facility]ORAT[facility] SERVICES Gross A. 03/17/2020 [facility] Description Received in formalin candido d with proper patient identification (initials C, L) and ECC is an aggregate of blood tinged mucus (1.3 x 0.7 x 0.2 cm). Entirely submitted in A1. 16:48 [facility] B. SERVICES Received in formalin candido d with proper patient identification (initials C, L) and ectocervix 3 o'clock is a painting-white tissue (0.4 x 0.3 x 0.2 cm). Entirely submitted in B1. CHRIS ULLOA(ASCP) 03/15/2020 8:30 Resident/Jonah Heredia, 03/17/2020 [facility] [place] w: 16:48 [facility] LABORATORY SERVICES Performing Lab [facility] 03/17/2020 [facility] M EDICAL 16:48 [facility] LABORATORY SERVICES Scanned Images 03/17/2020 [facility] 16:48 [facility] SERVICES Specimen Anatomical Collection Method Collection Time Receive d Time (Source) Location / / Volume Laterality Tissue ENTIRE WALL OF 03/12/2020 15:35 CERVIX / Unknown EST 21:23 EST Tissue specimen ENTIRE WALL OF 03/12/2020 15:35 2020 (specimen) CERVIX / Unknown EST 21:23 EST Yoli Jeong MD PATHOLOGY ORDERABLES Performing Organization Address City/State/ZIP Code Phon e Number [facility] [address] [place] [address] SERVICES documented in this encounter Visit Diagnoses Diagnosis Encounter for other general examination documented in this encounter Care Teams Reprographics Technician Relationship Specialty Start Date End Date Yumiko Tavarez MD PCP - General 12/29/19 [address] [place] [phone] documented as of this encounter
--- OUTSIDE RECORDS SUMMARY | 2022-01-20 00:13 | XMS_ITS | Encounter Summary ---
:1965 Author Organization [facility] Address [address] [place] [address] Care Team Providers Name Role Phone Yumiko Tavarez MD Primary Care Provider Reason for Visit Reason Onset Date Comments Medications Refill 10/05/2020 Encounter Details Date Type Department Care Team Description 10/05/2020 Refill [facility] Alta Thakkar MD Medications Refill Neurology - S [facility] 1 [facility] 1 [facility], Level 2 [place], [place] [phone] [place] [address] [phone] (Wo rk) Social History Tobacco Use Types Packs/Day Years Used Date Smoking Tobacco: Every Day Cigarettes 1 25 Smokeless Tobacco: Never Sex Assigned at Date Recorded Not on file documented as of this encounter Ordered Prescriptions Prescription Sig Dispensed Refills Start Date End Date deutetrabenazine 12 mg Take 1 Tablet by 180 Tablet 3 021 10/13/2020 tablet mouth 2 times daily. documented in this encounter Miscellaneous Notes Telephone Encounter - Orly Bertrand MA - 10/05/2020 1438 EDT Fax received from pharmacy requesting a refill of Austedo 12 mg tab (12 mg, EVERY MORNING Starting 09/10/2020, Until Lisa 09/16/2020 at 2359, For 7 days, THEN 12 mg, 2 TIMES DAILY Starting 09/17/2020, Until Lisa 10/07/2020 at 2359, For 21 days Take 1 Tablet by mouth every morning for 7 days, THEN 1 Tablet 2 times daily for 21 days., oral, Disp-49 Tablet, R-0 Weeks 3 and 4 of titration. Week 3: 12mg QAM, 6mg QPM (6mg tabs at patient home). Week 4: 12mg PO BID Last ordered: 09/10/2020 Last seen: 07/22/2020 documented in this encounter Plan of Treatment Upcoming Encounters Date Type Specialty Care Team Description 03/02/2022 Telemedicine Neurology Alta Thakkar M D 1 [facility], Level [address] [place], [place] [phone] (Wo rk) documented as of this encounter Visit Diagnoses Not on filedocumented in this encounter Discontinued Medications Medication Sig Discontinue Reason Start Date End Date deutetrabenazine 12 mg Take 1 Tablet by Reorder 09/10/2020 0 10/05/2020 tablet mouth every morning for 7 days, THEN 1 Tablet 2 times daily for 21 days. documented as of this encounter Care Teams Culvert Installer Relationship Specialty Start Date End Date Yumiko Tavarez MD PCP - General 12/29/[address] [place] [phone] documented as of this encounter
--- OUTSIDE RECORDS SUMMARY | 2022-01-20 00:13 | XMS_ITS | Encounter Summary ---
:1965 Author Organization [facility] Address [address] [place] [address] Care Team Providers Name Role Phone Yumiko Tavarez MD Primary Care Provider Reason for Visit Reason Onset Date Comments Medication Management 10/22/2020 Austedo Encounter Details Date Type Department Care Team Description 10/22/2020 Telephone [facility] Alta Thakkar MD Medication Management Neurology - S [address] [facility] 1 [place] [address] [place], [place] [phone] (Wo rk) Social History Tobacco Use Types Packs/Day Years Used Date Smoking Tobacco: Every Day Cigarettes 1 25 Smokeless Tobacco: Never Sex Assigned at Date Recorded Not on file documented as of this encounter Miscellaneous Notes Telephone Encounter - Sunni Ivey RN - 11/05/2020 1739 EDT Spoke with Miguelina and let her know that Dr. Thakkar wants her to increase the Austedo to 18mg in the am and 18mg at night and to let us know how she responds in a few weeks. She verbalized understanding. Telephone Encounter - Kena Marshlal - 11/05/2020 1630 EDT Pt calling in regarding medication, Austedo. Stated she last spoke to Cris in the specialty clinicon 10/27/20 about increasing the Austedo. She has been on the same dose for a month. She is not having any side effects but no benefit either. She would like to discuss increasing it. Telephone Encounter - Blanca Vaughn RPH - 10/25/2020 1422 EDT Incoming call from patientMiguelina states that she has been on Austedo (18mg QAM + 12mg QPM) for two weeks, denies benefit and side effects at this time. I did confirm with patient that she has experienced no change whatsoever in her involuntary orolingual movements. documented in this encounter Plan of Treatment Upcoming Encounters Date Type Specialty Care Team Description 03/02/2022 Telemedicine Neurology Alta Thakkar M D 1 [facility] 2 [place], [place] [phone] (Wo rk) documented as of this encounter Visit Diagnoses Not on filedocumented in this encounter Care Teams Lease Operator Relationship Specialty Start Date End Date Yumiko Tavarez MD PCP - General 12/29/19 [address] [place] [phone] documented as of this encounter
--- OUTSIDE RECORDS SUMMARY | 2022-01-20 00:13 | XMS_ITS | Encounter Summary ---
:1965 Author Organization [facility] Address [address] [place] [address] Care Team Providers Name Role Phone Yumiko Tavarez MD Primary Care Provider Reason for Visit Reason Comments Follow-up Telemedicine Video Visit Encounter Details Date Type Department Care Team Description 07/22/2020 Telemedicine [facility] Alta Thakkar MD Tardive dyskinesia (Primary Dx); Neurology - S 1 [facility] Tremor; [facility] Peripheral polyneuropathy 1 [facility], Level [address] [place], [place] [id number] [place] [address] [phone] Social History Tobacco Use Types Packs/Day Years Used Date Smoking Tobacco: Every Day Cigarettes 1 25 Smokeless Tobacco: Never Sex Assigned at Date Recorded Not on file documented as of this encounter Progress Notes Alta Thakkar MD - 07/22/2020 1000 EDT Images from the original note were not included. Type of visit: Follow-up Telehealth visit Clinician Requesting Consultation: Yumiko Tavarez MD [address] [place] [address] Fax: Primary Cotton Header: Yumiko Tavarez [address] [facility] [address] ASSESSMENT & PLAN / RECOMMENDATIONS 1. Tardive dyskinesia 2. Tremor 3. Peripheral polyneuropathy Miguelina Morales is a 55 y.o. woman who returns to the [facility] Movement Disorders clinic for evaluation and management of involuntary movements, likely tardive dyskinesia given exposurein the past to various neuroleptics and SSRIs. She reports hyperkinetic movements since at least 2011, which started distally in the toes and progressed proximally, including some mild orobuccolingual movements. Interestingly, she has been on two separate medications that would have treated these symptoms (amantadine, tetrabenazine) though neither controlled her symptoms at the prescribed dosages. Betsy restarted a titration of tetrabenazine up to 150mg daily to see if this will help with her symptoms - she is current on 25mg TID for the past week. Overall, she has not appreciated any benefits orside effects on the medication, though things seem somewhat less active by my eye on limited video exam. She continues to have fairly persistent movements around the mouth/tongue consistent with TD. She is amenable to continuing the titration of tetrabenazine, though understandably frustrated with the slow progress (including the time it took to get the medication approved). Should we reach a pre-determined maximum dose without substantial benefit, I would plan to discontinue this medication and s tart a different VMAT2 inhibitor. I was able to review both the previous DatScan ([facility]) in comparison to the more recent one ([facility]). There is a clear difference that I cannot explain. If she truly had pre-synaptic dopaminergic dysfunction, I would not expect resolution on subsequent imaging. She denies taking any medications at the time of the previous exam that would contribute to a false positive. I believe that her examinationis consistent at this time with a normal study, however we will continue to monitor over time. # Continue with titration of tetrabenazine -- currently at 25mg three times daily for the next week;if tolerating and symptoms persist, will plan to increase to 37.5mg TID for two weeks, then 50mg TIDthereafter (max dose 150mg daily) # Continue to monitor for side effects: Worsening mood, parkinsonism, etc # Consider valbenazine or deutetrabenazine if tetrabenazine ineffective Return to clinic: 4 months, on-site SUBJECTIVE [...] time for pain. Interval history (last visit 05/26/2020 via Telehealth): She started taking the tetrabenazine a monthago, and now up to 25mg TID. She does not appreciate much of a difference in her symptoms. She denies any side effects, mood have been stable. Previous medication trials for dyskinesia / chorea: Amantadine: did not work up to 100mg BID Tetrabenazine: did not work up to 25mg BID Previous psychiatric medications: Lexapro 20mg Remeron 45mg Abilify 5mg, 30mg Sertraline 100mg Rozeram 8mg Rexulti 2mg Cymbalta 30mg Xanax 2, 3 and 4 mg Clonazepam 1 and 2mg. ROS: A comprehensive 13 system review was [...] - has dysphagia, referral sent to [facility] Current Medications: Outpatient Medications Marked as Taking for the 07/22/20 encounter (Telemedicine) with Alta Thakkar MD Medication [...] naloxone (NARCAN) 4 mg/actuation nasal spray 1 [place] by nasal route as needed. ??? omeprazole [...] 150 MG TO EQUAL 200 MG ??? tetrabenazine 25 mg tablet tablet Take 1 Tab by mouth 3 times daily. 90 Tab 3 ??? 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 Full neurological examination difficult to complete due to Telehealth limitations. From what I couldassess, she had normal and symmetric spontaneous movements of the extremities. Directed movements - like finger tapping and hand opening/closing - were full and symmetric, though slightly effortful. She did appear to have frequent involuntary movements throughout the face, torso, and upper extremities. There were mild orolingual movements, writhing movements of the shoulders, and fine dyskinetic movements of the fingers with arms extended. No clear tremor initially, though when I asked specifically if the right hand tremor was still present, she did demonstrate some more rhythmic flexion/extension movements are the right wrist. This seems no worse than previous examinations, and somewhat suggestible. DATA No data to review today. Previous [...] Personal review of available imaging Patient/child care attendant education Scanned health information available from the referring and/or primary provider(s) Review of the pertinent information in the electronic health record Care plan formulation Supportive counseling Thank you for the opportunity to participate in this patient's care. If there are any questions, please contact the office at [phone]. Alta Thakkar MD Attending Physician, Movement Disorders Department of Neurology documented in this encounter Plan of Treatment Upcoming Encounters Date Type Specialty Care Team Description 03/02/2022 Telemedicine Neurology Alta Thakkar M D 1 [facility], Level [address] [place], [place] [address] (Wo rk) documented as of this encounter Visit Diagnoses Diagnosis Tardive dyskinesia - Primary Subacute dyskinesia due to drugs Tremor Abnormal involuntary movements Peripheral polyneuropathy Unspecified hereditary and idiopathic pe ripheral neuropathy documented in this encounter Care Teams Artillery Or Naval Gunfire Observer Relationship Specialty Start Date End Date Yumiko Tavarez MD PCP - General 12/29/[address] [place] [phone] documented as of this encounter
--- OUTSIDE RECORDS SUMMARY | 2022-01-20 00:13 | XMS_ITS | Encounter Summary ---
:1965 Author Organization [facility] Address [address] [place] [address] Care Team Providers Name Role Phone Yumiko Tavarez MD Primary Care Provider Reason for Visit Reason Onset Date Comments Prior Auth, Medication 03/01/2021 Ingrezza Encounter Details Date Type Department Care Team Description 03/01/2021 Telephone [facility] Alta Thakkar MD Prior Auth, Medication Neurology - [address] [facility] (Ingrezza ) [address] [place] [address] [place], [place] [address] (Wo rk) Social History Tobacco Use Types Packs/Day Years Used Date Smoking Tobacco: Every Day Cigarettes 1 25 Smokeless Tobacco: Never Sex Assigned at Date Recorded Not on file documented as of this encounter Ordered Prescriptions Prescription Sig Dispensed Refills Start Date End Date valbenazine (INGREZZA) Take 80 mg by mouth 30 capsule 1 02/0305/19/2021 80 mg capsule daily. valbenazine (INGREZZA Take 1 capsule by 28 capsule 0 021 05/19/2021 INITIATION PACK) 40 mg mouth daily. Take (7)- 80 mg (21) 40mg by mouth daily capsule,dose pack for 1 week, then increase to 80mg daily thereafter valbenazine (INGREZZA) Take 80 mg by mouth 30 capsule 1 02/0303/02/2021 80 mg capsule daily. valbenazine (INGREZZA Take 1 capsule by 28 capsule 0 021 03/02/2021 INITIATION PACK) 40 mg mouth daily. Take (7)- 80 mg (21) 40mg by mouth daily capsule,dose pack for 1 week, then increase to 80mg daily thereafter documented in this encounter Miscellaneous Notes Telephone Encounter - Ligia Badillo - 03/03/2021 1620 EST Prior Authorization Approval Medication: Ingrezza 80mg maintenance Insurance Name:[employer] Insurance Type: Commercial Approval Dates: 03/03/2021-02/28/2022 Authorization Number: [id number] Benefits Information: [facility] able to fill? : Yes Required Pharmacy: [facility] Additional Info/Other Notes: Telephone Encounter - Edi Vega - 03/03/2021 1453 EST Prior Authorization Submission Process ?? Medication: Ingrezza 80mg daily - continuation Insurance: [employer] Insurance Type: Commercial Date PA Request Received: 02/11/21 PA Submission Date: 03/03/21 CMM Mooney: n/a, submitting via PromptPA Notes: EOC ID: [id number] Submitted by: Edi Vega Phone: [phone] Telephone Encounter - Blanca Vaughn RPH - 03/02/2021 1313 EST [facility] Neurology: Medication Therapy Initiation Miguelina Morales is a 56 y.o. female who will be initiating treatment with Ingrezza for Tardive Dyskinesia. Anticipated start date: Mar 2020 Filling Pharmacy: [facility] Specialty Pharmacy I performed a complete review of the patient???s medical record, including medications, immunizations, and allergies. No clinically relevant drug interactions were identified at this time. I also updated the patient's medication list to reflect what Miguelina is currently taking at home. Assessment & Plan: Indication, effectiveness, safety and convenience of specialty medications were reviewed with the patient today. Counseled on the following: ?? Therapeutic rationale for treatment ?? Dosage and administration. Patient will take 40mg capsules daily for one week, and then increase to 80mg daily afterwards if 40mg is well tolerated ?? Safe handling, storage, and disposal ?? Possible adverse effects and management strategies ?? Possible drug and prescription drug interactions ?? Adherence and missed doses ?? Lab monitoring and follow-up recommendations Method of Education: Telephone Taught to: Patient Barriers to Education: None Barriers to Therapy: None identified at this time Follow up: ??? Phone call: as needed for follow up. Encouraged patient to call with any questions or concerns ??? Clinic appointment: 05/19/2021 Encouraged patient to reach out to me with any questions or concerns. Prescriptions for the starter pack and maintenance dose have been sent to [facility]. Blanca Vaughn, Pharm.D. [facility] ED Ambulatory Pharmacist Clinician - Neurology 03/02/2021 ADDENDUM: [facility] is unable to purchase/dispense Ingezza. Prescriptions rerouted to [facility] Pharmacy, override obtained my pharmacy staff so medication may be filled by [facility] SPR[facility]. Medication will be delivered to patient Sunday03/07/2021 Telephone Encounter - Gerry Wagner - 03/01/2021 1340 EST Prior Authorization Approval Medication: Ingrezza Insurance Name: [employer]ef[employer] Insurance Type: Commercial Approval Dates: 03/01/21 to 02/28/22 Authorization Number: [id number] Benefits Information: [facility] able to fill? : No Required Pharmacy: [facility] Prior Authorization Submission Process - Urgent Medication: Ingrezza 40mg & 80mg Insurance: [employer]ef[employer] Insurance Type: Commercial Date PA Request Received: 02/11/21 PA Submission Date: 03/01/21 CMM Mooney: n/a, submitting via portal Notes: EOC ID: [id number] Submitted by: Gerry Phone: [phone] documented in this encounter Plan of Treatment Upcoming Encounters Date Type Specialty Care Team Description 03/02/2022 Telemedicine Neurology Alta Thakkar M D [address] [place] [address] [address] [place], [place] [phone] (Wo rk) documented as of this encounter Visit Diagnoses Not on filedocumented in this encounter Discontinued Medications Medication Sig Discontinue Reason Start Date End Date deutetrabenazine Take 2 Tablets by Discontinued by 11/29/2020 ([place]) 12 mg tablet mouth every another clinician morning AND 1 Tablet every evening. deutetrabenazine Take 6 mg by mouth Discontinued by 11/29/2020 ([place]) 6 mg tablet every evening. another clinician valbenazine (INGREZZA Take 1 capsule by Reorder 03/02/2021 1 INITIATION PACK) 40 mg mouth daily. Take (7)- 80 mg (21) 40mg by mouth capsule,dose pack daily for 1 week, then increase to 80mg daily thereafter valbenazine (INGREZZA) 80 Take 80 mg by Reorder 03/02/2021 1 mg capsule mouth daily. documented as of this encounter Care Teams Rag Sorter Relationship Specialty Start Date End Date Yumiko Tavarez MD PCP - General 12/29/19 [address] [place] [phone] documented as of this encounter
--- OUTSIDE RECORDS SUMMARY | 2022-01-20 00:13 | XMS_ITS | Encounter Summary ---
:1965 Author Organization [facility] Address [address] [place] [address] Care Team Providers Name Role Phone Yumiko Tavarez MD Primary Care Provider Encounter Details Date Type Department Care Team Description 10/25/[address] [facility] Dante Vaughn, [facility] Ambulatory Pharmacy - [address] [facility] [address] [place] [phone] Social History Tobacco Use Types Packs/Day Years Used Date Smoking Tobacco: Every Day Cigarettes 1 25 Smokeless Tobacco: Never Sex Assigned at Date Recorded Not on file documented as of this encounter Plan of Treatment Upcoming Encounters Date Type Specialty Care Team Description 03/02/2022 Telemedicine Neurology Alta Thakkar M D 1 [facility] 2 [place], [place] [address] (Wo rk) documented as of this encounter Visit Diagnoses Not on filedocumented in this encounter Care Teams Density Control Puncher Relationship Specialty Start Date End Date Yumiko Tavarez MD PCP - General 12/29/19 [address] [place] [phone] documented as of this encounter
--- OUTSIDE RECORDS SUMMARY | 2022-01-20 00:14 | XMS_ITS | Encounter Summary ---
:1965 Author Organization [facility] Address [address] [place] [address] Care Team Providers Name Role Phone Unknown, Provider Primary Care Provider Encounter Details Date Type Department Care Team Description 05/29/2007 Results Only [facility] - Yana Topete MD [employer] [address] [place] [address] [place], [place] [address] [phone] Social History Tobacco Use Types Packs/Day Years Used Date Smoking Tobacco: Never Assessed Sex Assigned at Date Recorded Not on file documented as of this encounter Plan of Treatment Upcoming Encounters Date Type Specialty Care Team Description 03/02/2022 Telemedicine Neurology Alta Thakkar M D 1 [facility], Level [address] [place], [place] [phone] (Wo rk) documented as of this encounter Procedures Procedure Name Priority Date/Time Associated Comments Diagnosis HPV DETECTION, HIGH Routine 05/29/2007 13:40 Resu lts for this RISK TYPES EDT procedure are i n the results section. CYTOPATHOLOGY Routine 05/29/2007 0:00 Results for this EDT procedure are i n the results section. documented in this encounter Results HUMAN PAPILLOMA VIRUS DNA TEST (05/29/2007 13:40 EDT) [facility] Method Time Signature Specimen Cervix, PARDO Description ThinPrep [facility] vial Result Negative for PARDO HPV types [facility] 16, 18, 31, 33, 35, 39, 45, 51, 52, 56, 58, 59, and 68. Report Status Final CHAR [id number] [facility] Specimen Anatomical Collection Method Collection Time Receive d Time (Source) Location / / Volume Laterality 05/29/2007 13:40 06/04/2007 EDT 14:32 EDT Jerri Topete MD MICROBIOLOGY - GENERAL ORDER [place] Performing Organization Address City/State/ZIP Code Phon e Number [facility] [address] [place] [address] SERVICES [facility] [address] [place] [address] CYTOPATHOLOGY (05/29/2007 0:00 EDT) Component Value Ref Test Analysis Performed At [facility] Range Method Time Signature Pathology CYTOPATHOLOGY REPORT CHAR Report: [facility] Reports generated via electronic interface contain original data; however they are lacking the format of the original report. Caution should be taken when reading/interpreting unformatte d reports. Name: ? CYDNEY ALMAZAN ? Accession #: ? [id number] : ? 1965 (Age: 42) ??F ?Collect Date: ? 05/29/2007 Location: ? [facility] ? Receive Date: ? 05/30/2007 Provider: ?JERRI TOPETE MD Copy to: ? Specimen/Source: ? ThinPrep Pap Test, Cervix/Endocervix, processed on [employer] ThinPrep Imaging System, with manual evaluation Last Menstrual Period: ? 11/03/04 Other: ? HPVDX - HPV testing requested regardless of diag nosis on current ThinPrep Pap test. ? SPECIMEN ADEQUACY ? Satisfactory for Evaluation - transformation zone component present GENERAL CATEGORIZATION ? Negative for Intraepithelial Lesion or Malignancy ? Document reviewed and electronically signed by: ? HEATHER Ann(ASCP) ? Report Date: ??06/04/2007 11:24 End of Report Specimen (Source) Anatomical Location Collection Method / Collectio n Time Received Time / Laterality Volume 05/29/2007 05/30/2007 Jerri Topete MD PATHOLOGY ORDERABLES Performing Organization Address City/State/ZIP Code Phon e Number [facility] [address] [place] [address] SERVICES [facility] [address] [place] [address] documented in this encounter Visit Diagnoses Not on filedocumented in this encounter Care Teams Environmental Marketer Relationship Specialty Start Date End Date Unknown, Provider, PCP - General 08/05/08 12/28/19 documented as of this encounter
--- OUTSIDE RECORDS SUMMARY | 2022-01-20 00:14 | XMS_ITS | Encounter Summary ---
:1965 Author Organization [facility] Address [address] [place] [address] Care Team Providers Name Role Phone Unknown, Provider Primary Care Provider Encounter Details Date Type Department Care Team Description 11/10/[address] [facility] Jerri Topete MD Laboratory Services - [address] [place] [address] [address] [place] [address] Social History Tobacco Use Types Packs/Day Years Used Date Smoking Tobacco: Never Assessed Sex Assigned at Date Recorded Not on file documented as of this encounter Plan of Treatment Upcoming Encounters Date Type Specialty Care Team Description 03/02/2022 Telemedicine Neurology Alta Thakkar M D 1 [facility] Level [address] [place], [place] [phone] (Wo rk) documented as of this encounter Procedures Procedure Name Priority Date/Time Associated Diagnosis Comme nts PAP TEST- RESULT Routine 11/10/2010 0:00 EDT Resu lts for this ONLY procedure are i n the results section. documented in this encounter Results PAP TEST- RESULT ONLY (11/10/2010 0:00 EDT) Component Value Ref Test Analysis Performed At [facility] Method Time Signature Pathology CYTOPATHOLOGY REPORT ? PARDO Report: ? [facility] Reports generated via electr onic interface contain original data; ? however they are lacking the format of the original report. ? Caution should be taken when reading/interpreting unformatted reports. ? Name: ? CYDNEY ALMAZAN ? Accession #: ? [id number] ? : ? 1965 (Age: 45) ??F ?Collect Date: ? 11/10/2010 ? Location: ? [facility] ? R eceive Date: ? 11/11/2010 ? Provider: JERRI TOPETE MD ? Copy to: REMINGTON MEIERDIERCKS MD ? Final Report ? SPECIMEN ADEQUACY ? Satisfactory for Eval uation ? - transformation zone compon ent present ? GENERAL CATEGORIZATION ? Negative for Intraepi thelial Lesion or Malignancy ? Last Menstural Period: years ? Specimen/Source: ??Pap Test, Cervix/Endocervix, ThinPrep Imaging System with ? manual evaluation ? Document reviewed and electr onically signed by: ? pOal Bell, CT( CP)(IAC) ? Report ??Date: 09/13/ 2011 13:16 ? HPV with Pap Test ? Date Ordered: ? 0 11/15/2010 ? Status: ?? Signed Out ?Date Complete: ? 11/21/2010 ? By: ??System Interface ? Date Reported: ? 11/21/2010 ? Interpretation ? RESULT: Negative for HPV typ es 16, 18, 31, 33, 35, 39, 45, 51, 52, ? 56, 58, 59, and 68. ? Comments ? Document reviewed and electr onically signed by: ? System Interface ? Report date: 11/21/22 01 ? By the signature above, the attending physician certifies that he/she has ? personally conducted a gross and/or microscopic examination of the described ? specimens and rendered or co nfirmed the above diagnosis. ? End of Report ? Specimen (Source) Anatomical Location Collection Method / Collectio n Time Received Time / Laterality Volume 11/10/2010 11/11/2010 Jerri Topete MD PATHOLOGY ORDERABLES Performing Organization Address City/State/ZIP Code Phon e Number 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
--- OUTSIDE RECORDS SUMMARY | 2022-01-20 00:14 | XMS_ITS | Encounter Summary ---
:[address] [facility] Address [address] [place] [address] Care Team Providers Name Role Phone Unknown, Provider Primary Care Provider Encounter Details Date Type Department Care Team Description 01/19/2016 Results Only [facility] Jerri Topete MD [phone] [place] [address] Social History Tobacco Use Types Packs/Day Years Used Date Smoking Tobacco: Never Assessed Sex Assigned at Date Recorded Not on file documented as of this encounter Plan of Treatment Upcoming Encounters Date Type Specialty Care Team Description 03/02/2022 Telemedicine Neurology Alta Thakkar M D 1 [facility], Level 2 [place], [place] [address] (Wo rk) documented as of this encounter Procedures Procedure Name Priority Date/Time Associated Diagnosis Comme nts PAP TEST- RESULT Routine 01/19/2016 0:00 EST Resu lts for this ONLY procedure are i n the results section. documented in this encounter Results PAP TEST- RESULT ONLY (01/19/2016 0:00 EST) Component Value Ref Test Analysis Performed At [facility] Method Time Signature Pathology CYTOPATHOLOGY REPORT [facility] MEDIC AR Report: CENTER Reports generated via electronic interface contain origina l data; LABORATORY however they are lacking the format of the original report. SERVICES Caution should be taken when reading/interpreting unformatte d reports. Name: ? CYDNEY ALMAZAN ? Accession #: ? [id number] ? : ? 1965 (Age: 50) ??F ?Collect Da te: ? 01/19/2016 ? Location: ? [facility] ? Receive Date: ? 01/20/2016 ? Provider: JERRI TOPETE MD Copy to: REMINGTON LUJAN MD ? Final Report SPECIMEN ADEQUACY ? Satisfactory for Evaluation - transformation zone component absent GENERAL CATEGORIZATION ? Negative for Intraepithelial Lesion or Malignancy INTERPRETATION ? Shift in hollie present suggestive of bacterial vagino sis. Last Menstrual Period: Age 40 Specimen/Source: ??Pap Test, Cervix/Endocervix, ThinPr ep Imaging System with manual evaluation Document reviewed and electronically signed by: ? Cristel Doherty, SCT(ASCP) ? Report ??Date: 01/26/2016 09:52 HPV with Pap Test ? Date Ordered: ? 01/26/2016 ? Status: ?? Yasmine d Out ?Date Complete: ? 01/31/2016 ? By: ??System Interface ? Date Reported: ? 01/31/2016 ? Interpretation RESULT: Negative for HPV. No E6 or E7 mRNA is detected from HPV types 16,18,31,33,35, 39,45,51,52,56,58,59,66, and 68 by newspaper photographer mediated amplification. Comments Document reviewed and electronically signed by: ? System Interface ? Report date: 01/31/2016 By the signature above, the attending physician certifies th at he/she has personally conducted a gross and/or microscopic examin ation of the described specimens and rendered or confirmed the above diagnosis. End of Report Specimen (Source) Anatomical Location Collection Method / Collectio n Time Received Time / Laterality Volume 01/19/2016 01/20/2016 Jerri Topete MD PATHOLOGY ORDERABLES Performing Organization Address City/State/ZIP Code Phon e Number [facility] [address] [place] [address] SERVICES documented in this encounter Visit Diagnoses Not on filedocumented in this encounter Care Teams Oncology Patient Navigator Relationship Specialty Start Date End Date Unknown, Provider, PCP - General 08/05/08 12/28/19 documented as of this encounter
--- OUTSIDE RECORDS SUMMARY | 2022-01-20 00:14 | XMS_ITS | Encounter Summary ---
:1965 Author Organization [facility] Address [address] [place] [address] Care Team Providers Name Role Phone Unavailable Primary Care Provider Unavailable Encounter Details Date Type Department Care Team Description 08/03/[address] [facility] Phoenix Card MD Laboratory Services - [address] [id number] [facility] [place] [address] [phone] Social History Tobacco Use Types Packs/Day Years Used Date Smoking Tobacco: Never Assessed Sex Assigned at Date Recorded Not on file documented as of this encounter Plan of Treatment Upcoming Encounters Date Type Specialty Care Team Description 03/02/2022 Telemedicine Neurology Alta Thakkar M D 1 [facility] 2 [place], [place] [address] (Wo rk) documented as of this encounter Procedures Procedure Name Priority Date/Time Associated Diagnosis Comme nts SURGICAL PATHOLOGY Routine 08/03/2008 0:00 EDT Re sults for this procedure are i n the results section. documented in this encounter Results SURGICAL PATHOLOGY (08/03/2008 0:00 EDT) Component Value Ref Test Analysis Performed At [facility] Method Time Signature Pathology SURGICAL PATHOLOGY REPORT ? ATUL HER Report: Reports generated via [employer] interface contain original data; ? [facility] however they are lacking the format of the original report. ? Caution should be taken when reading/interpreting unformatted reports. ? Name: ? THA, CYDNEY ? Accession #: ? [id number] ? : ? 1965 (Age: 43) ??F ? Collec t Date: ? 08/03/2008 ? Location: ? [facility] ? R eceive Date: ? 08/03/2008 ? Provider: NILAM CARD MD ? Copy to: REMINGTON MEIERDIERCKS MD ? Final Pathologic Diagnosis: ? A. ?Small bowel , duodenum, biopsy: ? 1. ?Duodenal mu cosa without significant abnormality. ? 2. ? Negative for Giardi a, celiac disease or other significant inflammation. ?? B. ?Esophagus, 33 cm, biopsy: ? 1. ?Squamocolum carolina junctional mucosa with mild acute chronic ? inflammation. ? 2. ? Negative for dyspla jasvir. ? Document reviewed and electr onically signed by: ? Lizzeth Franklin MD ? Report ??Date: 08/05/2008 14 :37 ? By the signature above, the attending physician certifies that he/she has ? personally conducted a gross and/or microscopic examination of the described ? specimens and rendered or co nfirmed the above diagnosis. ? Specimen(s) Received: ? A. ?Duodenum ? B. ? Esophagus 33 cm ? Clinical History: ? Anemia ? Gross Description: ? Received in Berna' s fixative labelled Salcedo, Cydney and biopsy ? duodenum are four pink-painting irregular soft tissues ranging from 0.2 x 0.2 x 0.2 cm to 0.7 x 0.2 x 0.2 cm. ?? Submitted in toto as (A1) and (A2). ? Received in Berna's fixat martinez labelled Salcedo, Cydney and biopsy esophagus 33 cm are four pink-painting irr egular soft tissues ranging from 0.3 x 0.3 x 0.2 cm to 0.5 x 0.3 x 0.2 cm. ??Sub mitted in toto as (B1) and (B2). ??(Jessica Maldonado)/jose antoniog ? End of Report ? Specimen (Source) Anatomical Collection Method Collection Time Re ceived Time Location / / Volume Laterality 08/03/2008 08/03/2008 9:05 EDT Nilam Card MD PATHOLOGY ORDERABLES Performing Organization Address City/State/ZIP [facility] Phon e Number [facility] [address] [place] [address] SERVICES [facility] [address] [place] [address] documented in this encounter Visit Diagnoses Not on filedocumented in this encounter
== END ==
PROVIDERS: PCP Family Medicine; Visit Provider Family Medicine
DX: R92.8 Other abnormal and inconclusive findings on diagnostic imaging of breast (principal)
CPT/HCPCS: 77061; 77065; G0279

== ENCOUNTER → 2022-02-10 01:02 | Outpatient (CLI) | payer OTHER, SELFPAY ==
--- NOTE | 2022-02-10 14:45 | DI.DEXA_ITS ---
Exam(s) XR DEXA BONE DENSITY W/WO HOMERO EXAM: XR DEXA BONE DENSITY W/WO HOMERO CLINICAL HISTORY: OSTEOPOROSIS, M81.0 TECHNIQUE: COMPARISON: CR XR DEXA BONE DENSITY W/WO HOMERO from 11/26/2018 FINDINGS: Lateral Spine Image: Findings of acute both plasty are seen in T11, T12 and L1. Left hip: Total T-Score: -1.4. This compares to -2.3 on the prior examination. Total Z-Score: -0.5 T- and Z-scores: Findings are consistent with osteopenia. Lumbar Spine: Total T-Score: -1.8. This compares to -1.5 on the prior examination. Total Z-Score: -0.4 T- and Z-scores: Findings are consistent with osteopenia. IMPRESSION: Findings consistent with osteopenia in the lumbar spine and left hip.
== END ==
PROVIDERS: PCP Family Medicine; Visit Provider Family Medicine
DX: Z13.820 Encounter for screening for osteoporosis (principal); M85.89 Other specified disorders of bone density and structure, multiple sites
CPT/HCPCS: 77080

== ENCOUNTER 2022-02-13 14:40 | Outpatient (REF) | payer OTHER, SELFPAY | END 2022-02-13 14:41 | disposition home or self-care (01) | LOC: LBN 14:40 | PROVIDERS: PCP Family Medicine; Visit Provider Nurse Practitioner Family | DX: J02.9 Acute pharyngitis, unspecified (principal) | CPT/HCPCS: 87070 ==

== ENCOUNTER 2022-06-02 02:59 | Outpatient (CLI) | payer OTHER, SELFPAY ==
[2022-06-02 09:54] LABS: HGB 13.1 g/dL (11.2-15.7); MCH 32.4 pg (27.0-33.0); MCHC 32.8 % (32.0-36.0); MCV 99 fL (80-95); MPV 10.5 fL (8.0-11.0); Platelet Count 210 10^3/uL (130-400); RBC 4.04 10^6/uL (3.93-5.22); RDW 12.1 % (11.7-14.6); RDW-SD 44.7 fL; WBC 6.21 10^3/uL (4.4-10.8)
[2022-06-02 10:24] LABS: Calculated LDL 140 mg/dL (<100); Cholesterol 204 mg/dL (<200); HDL Cholesterol 47 mg/dL (40-60); Triglyceride 86 mg/dL (<150)
[2022-06-02 10:45] LABS: Vitamin D 25 Total 45.2 ng/mL (30-100)
== END 2022-06-02 03:00 | disposition home or self-care (01) ==
PROVIDERS: PCP Family Medicine; Visit Provider Family Medicine
DX: E55.9 Vitamin D deficiency, unspecified (principal); N18.30 Chronic kidney disease, stage 3 unspecified; F41.8 Other specified anxiety disorders; E78.5 Hyperlipidemia, unspecified; E03.9 Hypothyroidism, unspecified
CPT/HCPCS: 36415; 80061; 82306; 85027

== ENCOUNTER 2022-07-26 07:01 | Day surgery (SDC) | payer OTHER, SELFPAY ==
[2022-07-26 07:15] VITALS: BP 103/74; PULSE 82; RESP 16; TEMP 36.6; O2SAT 96
[2022-07-26] MEDS: Lactated Ringers 1,000 ML 80 ML IV (07:37)
[2022-07-26 08:06] VITALS: BMI 26.8
--- NOTE | 2022-07-26 08:06 | W.ANESPRE ---
General Info Date of Service Date Performed: 07/26/22 Height: 4 ft 11 in Weight: 60.3 kg Body Mass Index (BMI): 26.8 Surgical Procedure: Operation Date: 07/26/22 08:20 Proposed Procedure Side Surgeon alessia Marie MD Meds Allergies and Home Medications Allergies Allergy/AdvReac Type Severity Reaction Status Date / Time Antihistamines - Alkylamine Allergy Intermediate antihistamines Verified 07/26/22 07:11 unspecified procaine HCl [From Novocain] Allergy Intermediate Verified 07/26/22 07:11 gabapentin AdvReac Intermediate drowsiness Verified 07/26/22 07:11 mirtazapine AdvReac Unknown Heart Verified 07/26/22 07:11 racing, jittery Home Medication Medication Instructions Recorded folic acid 1 mg tablet 1 mg PO DAILY #90 tab-caps 09/01/15 cyanocobalamin (vitamin B-12) 1,500 mcg PO DAILY 11/28/16 1,000 mcg tablet (Vitamin B-12) zolpidem 10 mg tablet (Ambien) 10 mg PO DAILY 11/28/16 calcium carbonate 500 mg calcium 1,000 mg PO BID 05/18/17 (1,250 mg) tablet naloxone 4 mg/actuation nasal 4 mg NS PRN #2 sprays 05/18/17 spray (Narcan) oxycodone-acetaminophen 10 mg-325 1 tab-cap PO Q6H PRN 05/18/17 mg tablet (Percocet) cholecalciferol (vitamin D3) 1,250 1,250 mcg PO QWEEK 03/18/21 mcg (50,000 unit) capsule omeprazole 20 mg capsule,delayed 20 mg PO DAILY 03/18/21 release pregabalin 150 mg capsule (Lyrica) 150 mg PO DAILY 03/18/21 clonazepam 1 mg tablet 1 mg PO .noon 07/13/22 clonazepam 1 mg tablet 1.5 mg PO BID 07/13/22 pregabalin 50 mg capsule (Lyrica) 100 mg PO DAILY 07/13/22 alprazolam 0.5 mg tablet 0.5 mg PO PRN PRN 07/25/22 Current Visit Medications: Current Medications Generic Name Dose Route Start Last Admin Trade Name Freq PRN Reason Stop Dose Admin Ringer's Solution 1,000 mls @ 80 mls/hr 07/26/22 06:00 07/26/22 07:37 IV 08/24/22 23:59 80 mls/hr INFUSION VASU Administration IV Miscellaneous Supplies 1 each 07/26/22 06:00 Iv Access IV 08/24/22 23:59 DIRECTED VASU Sodium Chloride 0 ml 07/26/22 06:00 Normal Saline Flush 10 Ml Syr IV 08/24/22 23:59 PRN PRN Sodium Chloride 0 ml 07/26/22 06:00 Normal Saline 10 Ml Vial IJ 08/24/22 23:59 DIRECTED PRN Sterile Water 0 ml 07/26/22 06:00 Water,Injection,Sterile 10 Ml Vial IJ 08/24/22 23:59 DIRECTED PRN PFSH Active Problems Active Problems: Problem Status Onset Code Screening for colon cancer Z12.11 Medical History Medical History Acne Anxiety Ataxia Chorea Chronic fatigue Chronic kidney disease, stage III (moderate) Chronic low back pain Depression Dysphagia Epilepsy Flank pain Folate deficiency anemia Gallstones GERD (gastroesophageal reflux disease) HPV test positive 2018. Nl Pap/+ HPV 2019.ASCUS/+HPV (18) 03/12/2020. Colpo bx: Hyperlipidemia Hypothyroidism (acquired) Insomnia Macrocytosis Movement disorder Nausea Neuropathic pain Osteoporosis Primary Parkinsonism Syncopal episodes Tobacco dependence Vitamin D deficiency Surgical History Surgical History Cholecystectomy (03/08/16) laparoscopic Colonoscopy - MAC Hx of colposcopy with cervical biopsy 03/12/2020 vertebroplasty Tobacco Smoking/Tobacco Use Status: Current every day Alcohol Alcohol Intake: current Alcohol intake frequency: holidays/special occasions only Substance Use Substance use: Current Sobriety Prental History History 4 Para Hx # Term Pregnancies 2 Multiple births Hx # Pregnancies Ectopic pregnancies AB induced Hx Number of Living Children AB spontaneous Vital Signs and Lab Results Vital Signs Most Recent Vital Signs in EMR: Most Recent Vital Signs Temp Pulse Resp BP Pulse Ox 36.6 C 82 16 103/74 96 07/26/22 07:15 07/26/22 07:15 07/26/22 07:15 07/26/22 07:15 07/26/22 07:15 Lab Results Blood Type / Crossmatch: No Data to Display Complete Blood Count: No Data to Display Complete Metabolic Panel: No Data to Display Liver Function Panel: No Data to Display Coagulation Panel: No Data to Display Cardiac Panel: No Data to Display Arterial Blood Gas: No Data to Display Venous Blood Gas: No Data to Display Pancreas Panel: No Data to Display Thyroid Panel: No Data to Display Infectious Disease: No Data to Display Blood Cultures: No Data to Display Toxicology Panel: No Data to Display Anesthesia Assessment and Plan Anesthesia History Personal History: No History of Anesthesia Complications Family History: No Family History of Anesthesia Complications Exercise Tolerance Exercise Tolerance: Metabolic Equivalents>4 Pertinent Negatives Pertinent Negatives: No Symptoms of GERD, No Major Cardiovascular Symptoms or Complaints and No Major Pulmonary Symptoms or Complaints Cardiac & Pulmonary Exam Cardiac Exam: Normal S1/S2 Heart Sounds Pulmonary Exam: Clear Bilateral Breath Sounds Implantable Cardiac Device Does patient have a Pacemaker or an ICD?: No Airway Exam Known Difficult Airway: No Mallampati Class: 1 Mouth Opening: Normal (> 3cm) Thyromental Distance: Greater than 3 cm Neck Range of Motion: Full ROM Neck Circumference: Normal Teeth Condition: Removable Dentures/Plates Upper and Removable Dentures/Plates Lower ASA Classification ASA Score: ASA 2 Emergency Case?: No NPO Status NPO Status: NPO Clears >2 hours, Solids >8 hours Anesthesia Plan Resuscitation Status: Full Code Anesthesia Technique: General Anesthesia Airway Planned: Natural Airway Monitors Used: Standard Monitors
--- NOTE | 2022-07-26 08:17 | W.COLOREPORT ---
Date of service: 07/26/22 Time of Service: 08:17 Colonoscopy Report Procedure Description: Procedures performed: 1. Colonoscopy with cold forceps polypectomy x2 Preoperative diagnosis: Surveillance colonoscopy Postoperative diagnosis: Sigmoid diverticulosis, colon polyps Surgeon: Majo Marie Anesthesia: Francis Indication for procedure: 57-year-old woman without any symptoms, prior colonoscopy normal, no family history of colon cancer due for surveillance. Findings: Normal terminal ileum.? A 2-3 mm sessile polyp was removed from the transverse colon with cold forceps technique. Further along in the sigmoid colon another 2-3 mm sessile polyp was found and removed with cold forceps technique. Scattered diverticular changes were present, free of inflammation or infection, isolated only to the sigmoid colon. Surveillance/follow-up recommendations: 7-10 years. If adenomatous polyps then 7 to 10 years. If hyperplastic then 10 years. Complications: None Blood loss: Minimal Prep: Excellent Specimens:? None Procedure in detail: Written consent was obtained from the patient who was in agreement with the risks, benefits and indications of the procedure.? We went to the endoscopy suite and laid the patient in left lateral decubitus position.? Anesthesia was administered which was tolerated well.? A timeout was performed and when we are all in agreement we began the procedure. Digital rectal exam and visual examination was performed and within normal limits.? A well?lubricated colonoscope was advanced without difficulty all the way to the cecum identified by the ileocecal valve, and triangular folds and appendiceal orifice.? Terminal ileum was normal.? It was then slowly withdrawn.?? Retroflexion was performed in the rectum.? The findings/interventions are noted above. The scope was then removed and the patient tolerated the procedure well and was then taken back to the PACU in hemodynamically stable condition.
--- NOTE | 2022-07-26 08:49 | BOWEL_PTH ---
PATIENT: Miguelina Morales LOC: [facility] U#:[id number] AGE/SX: 57/F ROOM: RE07/26/[address]: Selvin Marie : 1965 BED: DIS: 07/26/2022 SPEC #: [id number] RECD: 07/26/22 12:43 STATUS: SCOOBY RE #: [id number] BLAIR: 07/26/22 08:[address]: Selvin Marie DEPT: Surgical Specimen RECD BY: Terri Garcias ENTERED: 07/26/22 12:44 SP TYPE: Bowel OTHR DR: Yumiko Tavarez Tissues: 1 - BIOPSY BOWEL 2 - BIOPSY BOWEL Procedures: GROSS AND MICRO LEVEL 4 Comments: [id number]
[2022-07-26 09:00] VITALS: BP 102/62; PULSE 68; RESP 16; TEMP 36.6; O2SAT 98
[2022-07-26 09:27] VITALS: BP 101/74; PULSE 65; RESP 16; TEMP 37; O2SAT 98
--- NOTE | 2022-07-26 10:14 | W.ANESPOSTOP ---
Postoperative Evaluation Date, Time and Location Date Performed: 07/26/22 Time Performed: 09:32 Patient Location: Day Surgery Unit Vital Signs Most Recent Imported Vital Signs: Most Recent Vital Signs Temp Pulse Resp BP Pulse Ox 37.0 C 65 16 101/74 98 07/26/22 09:27 07/26/22 09:27 07/26/22 09:27 07/26/22 09:27 07/26/22 09:27 Pain Score Most Recent Pain Score: Most Recent Pain Score Pain Level 2 07/26/22 09:27 Assessment Mental Status: Awake (Alert & Oriented to Patient Baseline) Airway and Respiratory Function: Patent airway with normal (patient baseline) respiratory exam Cardiovascular Function: Hemodynamically Stable Hydration Status: Adequately Hydrated Nausea & Vomiting: No Nausea or Vomiting Pain: Pt. Denies Any Pain Peripheral Nerve Block: Patient did not receive a nerve block
== END 2022-07-26 09:50 | disposition home or self-care (01) ==
PROVIDERS: PCP Family Medicine; Visit Provider Student in an Organized Health Care Education/Training Program
PROC: 0DJD8ZZ Inspection of Lower Intestinal Tract, Via Natural or Artificial Opening Endoscopic (ICD-10-PCS; CPT 45378; principal; 2022-07-26 08:15)
DX: Z12.11 Encounter for screening for malignant neoplasm of colon (principal); K63.5 Polyp of colon; K57.30 Diverticulosis of large intestine without perforation or abscess without bleeding
CPT/HCPCS: 45380; 88305

== ENCOUNTER 2022-07-28 00:22 | Outpatient (CLI) | payer OTHER, SELFPAY ==
--- NOTE | 2022-07-28 | DI.MAMMO_ITS ---
Exam(s) MAMMO SCREENING EXAM: MAMMO SCREENING CLINICAL HISTORY: SCREENING, Z12.31,WELL ADULT PREVENTATIVE CARE,Z00.00. TECHNIQUE: Bilateral full field digital CC and MLO mammographic images were obtained with 3D tomosyn thesis and utilizing computer aided detection (CAD). COMPARISON: Prior mammograms were reviewed. FINDINGS: There are no new right breast findings. Asymmetric density towards the upper outer quadrant of the left breast is unchanged. Left breast skin mole again noted. There are no new spiculated masses nor malignant appearing microcalcification groups. There is no significant architectural distortion nor skin thickening-retraction. IMPRESSION: No radiographic evidence of malignancy. BI-RADS Category 2 - Benign Findings Breast Density - Category B - Scattered areas of fibroglandular density Breast density Category C or D implies that the patient has dense breast tissue. Dense breast tissue can make it harder to find cancer on a mammogram. Dense breast tissue is also associated with an incr eased risk of breast cancer. This information about the result of the mammogram report was provided to the patient to raise their awareness. Use this report when you speak with the patient about their risks for breast cancer, which includes their family history. At that time, you may recommend additional screening tests (Ultrasoun d or MRI) as these tests may add significant information. A negative radiographic report should not delay biopsy if a dominant or clinically suspicious mass is present. Up to ten percent of cancers are not identified on mammography. A negative report may reinforce clinical impression. Adenosis and dense breasts may obscure an underlying neoplasm. False positive reports average 6 to 10%. Patient will receive a letter notifying them of these results.
== END 2022-07-28 00:42 ==
LOC: DI 00:22
PROVIDERS: PCP Family Medicine; Visit Provider Family Medicine
DX: Z12.31 Encounter for screening mammogram for malignant neoplasm of breast (principal)
CPT/HCPCS: 77063; 77067

== ENCOUNTER 2022-10-05 15:02 | Outpatient (REF) | payer OTHER, SELFPAY ==
[2022-10-05 15:46] LABS: Bilirubin Negative (Negative); Blood Small (Negative); Clarity Clear (Clear); Glucose Negative (Negative); Ketones Negative (Negative); Leukocyte Esterase Negative (Negative); Nitrite Negative (Negative); Urobilinogen 0.2 mg/dL (Up to 0.2); pH 5.5 (5-8)
[2022-10-05 15:53] LABS: Bacteria Rare HPF (Negative); C & S Indicated? No; Casts Negative LPF (Negative); Crystals Negative HPF (Negative); Epithelial Cells Rare HPF (Negative); Mucus Negative (Negative); Other Cells Negative (Negative); RBC 0-2 HPF (0-2); WBC 0-2 HPF (0-5)
== END 2022-10-05 15:03 | disposition home or self-care (01) ==
LOC: LBN 15:02
PROVIDERS: PCP Family Medicine; Visit Provider Nurse Practitioner Gerontology
DX: R31.9 Hematuria, unspecified (principal)
CPT/HCPCS: 81003; 81015

== ENCOUNTER 2022-10-11 16:12 | Outpatient (REF) | payer OTHER, SELFPAY ==
--- NOTE | 2022-10-11 13:45 | PAPFT_PTH ---
PATIENT: Miguelina Morales LOC: [facility]#:[id number] AGE/SX: 57/F ROOM: RE10/11/[address]: Yumiko Tavarez : 1965 BED: DIS: 10/11/2022 SPEC #: [id number] RECD: 10/12/22 12:50 STATUS: SCOOBY REPrecious #: [id number] BLAIR: 10/11/22 13:[address]: Yumiko Tavarez DEPT: [facility] Cytology RECD BY: Terri Garcias Tissues: 1 - CX/ENDOCX FOR PAP SMEARS Procedures: PAP THIN PREP/UVM Screening Comments: [id number] (CHLAMYDIA/GC) (UNSATISFACTORY FOR EVALUATION)
[2022-10-13 15:00] LABS: Chlamydia Result Negative (Negative); GC Result Negative (Negative)
== END 2022-10-11 16:13 | disposition home or self-care (01) ==
LOC: NCHCN 16:12
PROVIDERS: PCP Family Medicine; Visit Provider Family Medicine
DX: Z12.4 Encounter for screening for malignant neoplasm of cervix (principal); Z11.3 Encounter for screening for infections with a predominantly sexual mode of transmission; R87.615 Unsatisfactory cytologic smear of cervix
CPT/HCPCS: 87491; 87591; 88142

== ENCOUNTER 2023-01-26 14:56 | Outpatient (REF) | payer OTHER, SELFPAY ==
--- NOTE | 2023-01-26 14:00 | PAPFT_PTH ---
PATIENT: Miguelina Morales LOC: [facility]#:[id number] AGE/SX: 57/F ROOM: RE01/26/[address]: Yumiko Tavarez : 1965 BED: DIS: 01/26/2023 SPEC #: [id number] RECD: 01/29/23 13:24 STATUS: SCOOBY REPrecious #: [id number] BLAIR: 01/26/23 14:[address]: Yumiko Tavarez DEPT: [facility] Cytology RECD BY: Terri Garcias Tissues: 1 - CX/ENDOCX FOR PAP SMEARS Procedures: PAP THIN PREP/UVM Screening HPV DNA PROBE Comments: [id number] (HPV 16 & 18/45)
== END 2023-01-26 14:57 | disposition home or self-care (01) ==
LOC: NCHCN 14:56
PROVIDERS: PCP Family Medicine; Visit Provider Family Medicine
DX: Z12.4 Encounter for screening for malignant neoplasm of cervix (principal); Z11.51 Encounter for screening for human papillomavirus (HPV)
CPT/HCPCS: 88142; 87624

== ENCOUNTER → 2023-07-02 02:45 | Outpatient (CLI) | payer OTHER, SELFPAY ==
--- NOTE | 2023-07-02 | DI.DEXA_ITS ---
Exam(s) XR DEXA BONE DENSITY W/WO HOMERO EXAM: XR DEXA BONE DENSITY W/WO HOMERO CLINICAL HISTORY: OSTEOPENIA, M85.88 TECHNIQUE: Routine DEXA evaluation of the lumbar spine, hip, or forearm. COMPARISON: CR XR DEXA BONE DENSITY W/WO HOMERO from 11/26/2018 CR XR DEXA BONE DENSITY W/WO HOMERO from 02/10/2022 FINDINGS: Performed on a Hologic unit. Lateral image: Vertebroplasty cement is noted in T11, T12, L1 vertebral bodies and there has been no further height loss of these vertebral bodies when compared to the lateral image of the DEXA scan per formed 02/10/2022. Lumbar Spine total T-score: Performed using L2, L3, and L4 vertebral body to avoid the cement in L1. Yields total T-score of -2.1. Prior reading 02/10/2022 was -1.8. However, I note that prior reading included the cement containing L1 vertebral body. Same is true for the DEXA scan of 11/26/2018 which yielded a lumbar spine T-scor e of -1.5, however I note that also included the cement containing L1 vertebra. Hip total T-score:-1.3. Prior reading February 2022 was -1.4 Independent reading at the level of the femoral neck yields T-score of -1.8. Prior reading at the level of the femoral neck in 2021 was -2.1 Forearm total T-score: -1.4. Prior reading in February 2022 was -1.6. IMPRESSION: Bone mineral density measures in the osteopenia range. Fracture risk is moderate. Note: Any spine fracture indicates 5x risk for subsequent spine fracture and 2x risk for subsequent h ip fracture. World Health Organization criteria for BMD interpretation classify patients: Normal...... T- Score at or above -1.0 Osteopenic... T- Score between -1.0 and -2.5 Osteoporosis... T-Score at or below -2.5
== END ==
PROVIDERS: PCP Family Medicine; Visit Provider Family Medicine
DX: Z13.820 Encounter for screening for osteoporosis (principal); M85.88 Other specified disorders of bone density and structure, other site
CPT/HCPCS: 77080

== ENCOUNTER 2023-09-21 16:47 | Outpatient (REF) | payer OTHER, SELFPAY ==
--- OUTSIDE RECORDS SUMMARY | 2023-09-21 17:01 | XMS_ITS | Encounter Summary ---
Author Organization [facility] Address [address] [place] [address] Care Team Providers Care [employer] Name Role Phone Yumiko Tavarez MD Primary Care Provider [phone] Reason for Visit * Reason Onset Date Comments Appointment Related 07/06/2023 Encounter Details Date Type Department Care Team (Late st Contact Info) Description 07/06/2023 Telephone [facility] Neurology - [address] [id number] Alta Walter MD [address] [place] [address] [address] [place] [phone] Appointment Related Social History Tobacco Use Types Packs/Day Years Used Date Smoking Tobacco: Every Day Cigarettes 1 25 Smokeless Tobacco: Never Interpersonal Safety Answer Date Record ed Physically Hurt Never 10/05/2019 Verbally Threaten Not on file 10/05/2019 Sex and Gender Information Value Date Recorded Sex Assigned at Not on file Gender Identity Female 12/29/2019 9:52 EDT Sexual Orientation Not on file documented as of this encounter Miscellaneous Notes * Telephone Encounter - Naye Lara - 07/06/2023 1601 EDT Called and left a message for Miguelina to call us back and schedule a [address] Thakkar on site. Upon call back please schedule off the recall list. Thank you documented in this encounter Plan of Treatment Upcoming Encounters Date Type Department Care Team (Late st Contact Info) Description 02/13/2024 13:00 EST Office Visit [facility] Neurology - [address] [place] [address] Alta Walter MD [address] [facility], [address] [place] [address] documented as of this encounter Visit Diagnoses Not on filedocumented in this encounter Care Teams [employer] Relationship Specialty Start Date End Date Yumiko Tavarez MD [address] [place] [address] PCP - General 12/29/19 documented as of this encounter
--- OUTSIDE RECORDS SUMMARY | 2023-09-21 17:01 | XMS_ITS | Encounter Summary ---
Author Organization [facility] Address [address] [place] [address] Care Team Providers Care French Comber Name Role Phone Yumiko Tavarez MD Primary Care Provider [phone] Reason for Visit * Reason Onset Date Comments Medications Refill 09/16/2021 Encounter Details Date Type Department Care Team (Late st Contact Info) Description 09/16/2021 Refill [facility] Neurology - [address] [id number] Alta Walter MD [address] [place] [address], [address] [place] [phone] Medications Refill Social History Tobacco Use Types Packs/Day Years [...] Prescription Sig Dispensed Refills Start Date End Da te clonazePAM (KLONOPIN) 1 mg tablet Take 1.5 Tablets by mouth 2 times daily. Daily Max: 3 mg 90 Tablet 5 09/16/2021 10/12/2021 documented in this encounter Miscellaneous Notes * Telephone Encounter - Cristel Doss RN - 09/16/2021 1101 EDT Medication Rx Request Medication: Clonazepam 1 mg Last Visit in login department: 05/19/2021 Next appointment Scheduled: 12/01/2021 Date previous Rx written: 08/15/2021 VPMS Inquiry needed? The [place] Prescription Monitoring System query has been completed per the following requirement(s): Annual Verification. If yes, date of last fill: 08/16/2021 Documentation Reviewed, prescription pended to provider for review & signature. RX pended to provider, previous pharmacy is now closed and unable to access refills. * Telephone Encounter - Naye Lara - 09/16/2021 1049 EDT Miguelina called in this morning needing a refill called in for her. Her normal pharmacy is closed and she is out of medication. The medication is for, Medication Refill Medication(s) Requested: clonazePAM (KLONOPIN) 1 mg tablet Pharmacy (reconcile pharmacy list): [id number] - [address] Is patient out of medication? Yes Picking up/mailing (location)/calling in/eprescribe? E-prescribe 30 day supply/90 day supply? 90 day Please call the patient with any questions. Thank you documented in this encounter Plan of Treatment Upcoming Encounters Date Type Department Care Team (Late st Contact Info) Description 02/13/2024 13:00 EST Office Visit [facility] Neurology - [address] [id number] Alta Walter MD [address] [place] [address], [address] [place] [phone] documented as of this encounter Visit Diagnoses Not on filedocumented in this encounter Discontinued Medications Medication Sig Discontinue Reason Start Date End Da te clonazePAM (KLONOPIN) 1 mg tablet Take 1.5 Tablets by mouth 2 times daily. Daily Max: 3 mg Reorder 08/15/2021 09/16/2021 documented as of this encounter Care Teams French Comber Relationship Specialty Start Date End Date Yumiko Tavarez MD [address] [place] [address] PCP - General 12/29/19 documented as of this encounter
--- OUTSIDE RECORDS SUMMARY | 2023-09-21 17:01 | XMS_ITS | Encounter Summary ---
Author Organization [facility] Address [address] [place] [address] Care Team Providers Care Home Theater Installer Name Role Phone Yumiko Tavarez MD Primary Care Provider [phone] Reason for Visit * Reason Onset Date Comments Prior Auth, Medication 03/13/2023 Encounter Details Date Type Department Care Team ([facility] Contact Info) Description 03/13/2023 Telephone [facility] Neurology - [address] [id number] Alta Walter MD [address] [place] [address], [address] [place] [address] Prior Auth, Medication Social History Tobacco Use Types Packs/Day Years [...] encounter Miscellaneous Notes * Telephone Encounter - Orly Bertrand MA - 03/13/2023 0811 EST Received PA request for Clonazepam 1 mg tab, sent to plan. Mooney: [id number] PA response: Drug is covered by current benefit plan. No further PA activity needed documented in this encounter Plan of Treatment Upcoming Encounters Date Type Department Care Team (Late st Contact Info) Description 02/13/2024 13:00 EST Office Visit [facility] Neurology - [address] [place] [address] [place] [address] Alta Walter MD [facility], [address] [place] [phone] documented as of this encounter Visit Diagnoses Not on filedocumented in this encounter Care Teams Home Theater Installer Relationship Specialty Start Date End Date Yumiko Tavarez MD [address] [place] [phone] PCP - General 12/29/19 documented as of this encounter
--- OUTSIDE RECORDS SUMMARY | 2023-09-21 17:01 | XMS_ITS | Encounter Summary ---
Author Organization [facility] Address [address] [place] [address] Care Team Providers Care Set Up Mechanic Stamping Machines Name Role Phone Yumiko Tavarez MD Primary Care Provider [phone] Reason for Visit * Reason Onset Date Comments Appointment Related 08/15/2021 Encounter Details Date Type Department Care Team (Late st Contact Info) Description 08/15/2021 Telephone [facility] Neurology - S [address] [id number] Alta Walter MD [address] [place] [address] [address] [place] [phone] Appointment Related Social History Tobacco Use Types [...] encounter Miscellaneous Notes * Telephone Encounter - Meme Lemus - 08/15/2021 1658 EDT /Outreached Miguelina cancelled the FOLLOW UP ON-SITE appointment with Dr. Thakkar on Sunday Rescheduled to at 4:00 PM. * Telephone Encounter - Geraldo Kwon - 08/15/2021 [...] Info) Description 02/13/2024 13:00 EST Office Visit [facility] Neurology - S [address] [id number] Alta Walter MD [address] [place] [address], [address] [place] [phone] documented as of this encounter Visit Diagnoses Not on filedocumented in this encounter Care Teams Set Up Mechanic Stamping Machines Relationship Specialty Start Date End Date Yumiko Tavarez MD [address] [place] [phone] PCP - General 12/29/19 documented as of this encounter
--- OUTSIDE RECORDS SUMMARY | 2023-09-21 17:01 | XMS_ITS | Encounter Summary ---
Author Organization [facility] Address [address] [place] [address] Care Team Providers Care Button Tacker Name Role Phone Yumiko Tavarez MD Primary Care Provider [phone] Encounter Details Date Type Department Care Team (Late st Contact Info) Description 10/12/[address] [facility] Pathology & Laboratory Medicine - [facility] [address] [place] [address] Outr Resulting Lab, Provider Social History Tobacco Use Types Packs/Day Years [...] Info) Description 02/13/2024 13:[address] [facility] Neurology - [address] [place] [address] [place] [id number] Alta Walter MD [address] [place] [address], [address] [place] [phone] documented as of this encounter Procedures Procedure Name Priority Date/Time Associated Diagnosis Comments CHLAMYDIA/N. GONORRHOEAE AMPLIFIED NUCLEIC ACID, THINPREP Routine 10/11/2022 13:45 EDT documented in this encounter Results * CHLAMYDIA/N. GONORRHOEAE AMPLIFIED RNA, THINPREP (10/11/2022 13:45 EDT) Neisseria gonorrhoeae Result Negative Negative 10/13/2022 14:53 EDT [facility] Chlamydia trachomatis Result Negative Negative 10/13/2022 14:53 EDT [facility] Papanicolaou smear specimen (specimen) CERVIX UTERI STRUCTURE / Unknown 10/11/2022 13:45 EDT 10/13/2022 10:17 EDT Provider Outr Resulting Lab MICROBIOLOGY - GENERAL ORDERABLES [facility] [address] [place] [address] documented in this encounter Visit Diagnoses Not on filedocumented in this encounter Care Teams Button Tacker Relationship Specialty Start Date End Date Yumiko Tavarez MD [address] [place] [phone] PCP - General 12/29/19 documented as of this encounter
--- OUTSIDE RECORDS SUMMARY | 2023-09-21 17:01 | XMS_ITS | Encounter Summary ---
Author Organization [facility] Address [address] [place] [address] Care Team Providers Care Medication Manager Name Role Phone Yumiko Tavarez MD Primary Care Provider [phone] Reason for Visit * Reason Onset Date Comments Appointment Related 05/25/2021 Encounter Details Date Type Department Care Team (Late st Contact Info) Description 05/25/2021 Telephone [facility] Neurology - S [address] [id number] Alta Walter MD [address] [place] [address] [address] [place] [phone] Appointment Related Social History Tobacco Use Types [...] encounter Miscellaneous Notes * Telephone Encounter - Antonette Cleveland - 05/25/2021 0837 EDT Spoke with the patient. Antonette scheduled in person w/Dr. Thakkar for 08/19/2021 @ 10:30 am. documented in this encounter Plan of Treatment Upcoming Encounters Date Type Department Care Team (Late st Contact Info) Description 02/13/2024 13:00 EST Office Visit [facility] Neurology - S [place] [address] [place] [address] Alta Walter MD [address] [place] [address], [address] [place] [address] documented as of this encounter Visit Diagnoses Not on filedocumented in this encounter Care Teams Medication Manager Relationship Specialty Start Date End Date Yumiko Tavarez MD [address] [place] [address] PCP - General 12/29/19 documented as of this encounter
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
--- OUTSIDE RECORDS SUMMARY | 2023-09-21 17:01 | XMS_ITS | Encounter Summary ---
Author Organization [facility] Address [address] [place] [address] Care Team Providers Care Wire Rigger Name Role Phone Yumiko Tavarez MD Primary Care Provider [phone] Reason for Visit * Reason Comments Follow-up Telemedicine Video Visit Encounter Details Date Type Department Care Team ([facility] st Contact Info) Description 09/29/2021 13:30 EDT Telemedicine [facility] Neurology - S [address] [id number] Alta Walter MD [address] [place] [address] Level 2 [place] [address] Tardive dyskinesia (Primary Dx); Functional neurological symptom disorder with abnormal movement; Tremor Social History Tobacco Use Types Packs/Day Years [...] of this encounter Progress Notes * Alta Thakkar MD - 09/29/2021 1330 EDT Images from the original note were not included. Type of visit: Follow-up Telehealth visit Clinician Requesting Consultation: Yumiko Tavarez MD [address] [place] [phone] Fax: Primary Public Affairs Officer: Yumiko Tavarez [address] [facility] [address] ASSESSMENT & PLAN / RECOMMENDATIONS 1. Tardive dyskinesia 2. Functional neurological symptom disorder with abnormal movement 3. Tremor Miguelina Morales is a 56 y.o. woman who returns to the [facility] Movement Disorders clinic for evaluation and management of involuntary movements, likely tardive dyskinesia given exposure in the past to various neuroleptics and SSRIs, with a component of functional overlay as well. She reports hyperkinetic movements since [...] may have been helpful in the past; shenotes that it is helped with urinary dysfunction [...] We tried every VMAT2 inhibitor, but none seemto help her movements and the valbenazine paradoxically [...] possibility of her returning to driving. The for step would be for her to renew her license, she should not be driving if that is . Second, I offered her a referral to the [facility] clinical driver examiner assessment program. She is concerned that movements [...] y.o. woman who was referred to the [facility] Movement Disorders clinic for evaluation [...] difficulty - has dysphagia, referral sent to [facility] Urinary dysfunction - okay in the morning [...] naloxone (NARCAN) 4 mg/actuation nasal spray 1 [place] by nasal route as needed. ??? 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 There were mild orolingual movements throughout the [...] Personal review of available imaging Patient/child care counselor education Scanned health information available from the referring and/or primary provider(s) Review of the pertinent information in the electronic health record Care plan formulation Supportive counseling Alta Thakkar MD Attending Physician, Movement Disorders Department of Neurology documented in this encounter Plan of Treatment Upcoming Encounters Date Type Department Care Team (Late st Contact Info) Description 02/13/2024 13:00 EST Office Visit [facility] Neurology - S [address] [id number] Alta Walter MD [address] [place] [address], Level [address] [place] [address] documented as of this encounter Visit Diagnoses Diagnosis Tardive dyskinesia- Primary Subacute dyskinesia due to drugs 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
--- OUTSIDE RECORDS SUMMARY | 2023-09-21 17:01 | XMS_ITS | Encounter Summary ---
Author Organization [facility] Address [address] [place] [address] Care Team Providers Care Child And Youth Program Assistant Name Role Phone Yumiko Tavarez MD Primary Care Provider [phone] Reason for Visit * Reason Onset Date Comments Appointment Related 08/02/2023 Encounter Details Date Type Department Care Team (Late st Contact Info) Description 08/02/2023 Telephone [facility] Neurology - S [address] [id number] Alta Walter MD [address] [place] [address] [address] 2 [place] [phone] Appointment Related Social History Tobacco Use Types [...] encounter Miscellaneous Notes * Telephone Encounter - Addis Mcdowell - 08/02/2023 1310 EDT Miguelina called to schedule her FUV from recall Scheduled 02/12 at 1PM onsite with Dr Law Walter documented in this encounter Plan of Treatment Upcoming Encounters Date Type Department Care Team (Late st Contact Info) Description 02/13/2024 13:00 EST Office Visit [facility] Neurology - S [place] [address] [place] [address] Alta Walter MD 1 [facility], [address] [place] [phone] documented as of this encounter Visit Diagnoses Not on filedocumented in this encounter Care Teams Child And Youth Program Assistant Relationship Specialty Start Date End Date Yumiko Tavarez MD [address] [place] [address] PCP - General 12/29/19 documented as of this encounter
--- OUTSIDE RECORDS SUMMARY | 2023-09-21 17:01 | XMS_ITS | Encounter Summary ---
Author Organization [facility] Address [address] [place] [address] Care Team Providers Care Geospatial Technologist Name Role Phone Yumiko Tavarez MD Primary Care Provider [phone] Encounter Details Date Type Department Care Team (Latest Contact Info) Description 01/30/2023 Lab Requisition [facility] Pathology & Laboratory Medicine - [facility] [address] [place] [address] Yumiko Tavarez MD [address] [place] [phone] Encounter for gynecological examination (general) (routine) without abnormal findings; Encounter for screening for malignant neoplasm of cervix; Encounter for general adult medical examination without abnormal findings Social History Tobacco Use Types Packs/Day Years [...] Info) Description 02/13/2024 13:00 EST Office Visit [facility] Neurology - S [place] [address] [place] [phone] Alta Walter MD [address] [place] [address], Level 2 [place] [phone] documented as of this encounter Procedures Procedure Name Priority Date/Time Associated Diagnosis Comments PAP TEST Today 01/26/2023 14:00 EST Encounter for gynecological examination (general) (routine) without abnormal findings Encounter for screening for malignant neoplasm of cervix Encounter for general adult medical examination without abnormal findings HPV GENOTYPES 16 AND 18/45 Today 01/26/2023 14:00 EST Encounter for gynecological examination (general) (routine) without abnormal findings Encounter for screening for malignant neoplasm of cervix Encounter for general adult medical examination without abnormal findings HPV DNA DETECTION WITH GENOTYPING, PCR Today 01/26/2023 14:00 EST Encounter for gynecological examination (general) (routine) without abnormal findings Encounter for screening for malignant neoplasm of cervix Encounter for general adult medical examination without abnormal findings documented in this encounter Results * (ABNORMAL) HPV GENOTYPES 16 AND 18/45 (01/26/2023 14:00 EST) HPV High Risk type 16, PCR Negative Negative 02/13/2023 15:28 EST [facility] HPV18/45 RNA (HPV18/45) Positive(A) Negative 02/13/2023 15:28 EST [facility] Pap Test CERVIX UTERI STRUCTURE / Unknown 01/26/2023 14:00 EST 02/07/2023 16:12 EST Yumiko Tavarez MD MICROBIOLOGY - GENER AL ORDERABLES Performing Organization Address City/State/[facility] Co de Phone Number [facility] [address] [place] [address] * (ABNORMAL) HUMAN PAPILLOMAVIRUS (HPV) DETECTION-HIGH RISK TYPES (01/26/2023 14:00 EST) HPV other High Risk types, PCR Positive( A) Negative 02/15/2023 14:38 EST [facility] Comment:E6 OR E7 mRNA from o ne or more types of HPV types 16,18,31,33,35,39,45,51,52,56,58,59,66, and 68 is detected by ticket broker mediated amplification. High and intermediate risk HPV types are associated with most squamous intraepithelial lesions and cervical cancers. Pap Test CERVIX UTERI STRUCTURE / Unknown 01/26/2023 14:00 EST 02/07/2023 16:12 EST Yumiko Tavarez MD MICROBIOLOGY - GENER AL ORDERABLES [facility] [address] [place] [address] * PAP TEST (01/26/2023 14:00 EST) Specimens A. Cervix and/or Endocervix , ThinPrep Imaging System with Manual Evaluation 02/15/2023 14:38 [facility] Specimen Adequacy Satisfactory for Evaluation - transformation zone component present 02/15/2023 14:38 [facility] General Categorization Negative for intraepithelial lesion or malignancy 02/15/2023 14:38 [facility] Descriptive Diagnosis Reactive cellular changes associated with inflammation present (includes repair). 02/15/2023 14:38 [facility] Attestation By the signature below, the attending physician certifies that they have personally conducted a gross and/or microscopic examination of the described specimens and rendered or confirmed the above diagnosis. 02/15/2023 14:38 [facility] at 1438 Clinical History SEE BELOW 02/16/20 14:38 [facility] HPV The result for the Human Papillomavirus (HPV) Detection-High Risk Types is Positive . E6 OR E7 mRNA from one or more types of HPV types 16,18,31,33,35,39 ,45,51,52,56,58,5 9,66, and 68 is detected by ticket broker mediated amplification. High and intermediate risk HPV types are associated with most squamous intraepithelial lesions and cervical cancers. Testing was performed on specimen [id number] and was resulted on 02/08/2023 1733 EST by ANTHONY, LAB INSTRUMENT RESULTS IN 02/15/2023 14:38 [facility] Genotyping 16 & 18/45 The results for the HPV Genotypes 16 and 18/45 are Negative for the HPV16 RNA and Positive for the HPV18/45 RNA (HPV18/45) . Testing was performed on specimen [id number] and was resulted on 02/13/2023 1528 EST by ANTHONY, LAB INSTRUMENT RESULTS IN 02/15/2023 14:38 EST [facility] Performing Lab [facility] 02/15/2023 14:38 EST [facility] Scanned Images 02/15/2023 14:38 EST [facility] Pap Test CERVIX UTERI STRUCTURE / Unknown 01/26/2023 14:00 EST 01/30/2023 16:15 EST Yumiko Tavarez MD PATHOLOGY ORDERABLES Performing Organization Address City/State/[facility] Co de Phone Number [facility] [address] [place] [address] documented in this encounter Visit Diagnoses Diagnosis Encounter for gynecological examination (general) (routine) without abnormal findings Encounter for screening for malignant neoplasm of cervix Screening for malignant neoplasm of the cervix Encounter for general adult medical examination without abnormal findings Unspecified general medical examination documented in this encounter Care Teams Geospatial Technologist Relationship Specialty Start Date End Date Yumiko Tavarez MD [address] [place] [phone] PCP - General 12/29/19 documented as of this encounter
--- OUTSIDE RECORDS SUMMARY | 2023-09-21 17:01 | XMS_ITS | Encounter Summary ---
Author Organization [facility] Address [address] [place] [address] Care Team Providers Care Assistant Superintendent Name Role Phone Yumiko Tavarez MD Primary Care Provider [phone] Reason for Visit * Reason Onset Date Comments Medications Refill 06/16/2022 Encounter Details Date Type Department Care Team (Late st Contact Info) Description 06/16/2022 Refill [facility] Neurology - S [address] [id number] Alta Walter MD [address] [place] [address], Level 2 [place] [phone] Medications Refill Social History Tobacco Use Types [...] Daily Max: 4 mg. 120 Tablet 5 06/22/2022 01/01/2023 documented in this encounter Miscellaneous Notes * Telephone Encounter - Eric Ivey - 06/22/2022 1423 EDT Miguelina calls back in and is looking for refill request below. She has now been out of medication for 2 days. * Telephone Encounter - Aidee Trimble RN - 06/20/2022 1002 EDT Requested Prescriptions Pending Prescriptions Disp Refills ??? clonazePAM (KLONOPIN) 1 mg tablet 120 Tablet 5 Sig: Take 1.5 Tablets by mouth 2 times daily AND 1 Tablet daily. Daily Max: 4 mg. [facility]: [facility] Last Refill Date: 12/14/21 Last Visit Date: 06/15/22 Next Non-Acute Visit Date Scheduled with Care Team: Yes. 12/07/2022 Plan from 06/15/22 OV note: continue clonazepam 1mg - 1.5 tablets BID + 1mg mid-day --> we have tried all other FDA-approvedtreatment options for TD, and the clonazepam has been the only medication that is effective for hersymptoms AIDEE TRIMBLE RN 06/20/2022 10:02 * Telephone Encounter - Meme Lemus - 06/20/2022 0929 EDT Medication Refill Medication(s) Requested: clonazePAM (KLONOPIN) 1 mg tablet Pharmacy (reconcile pharmacy list): [id number] - [place], [place] - [address] [place] [id number] Is patient out of medication? Yes Picking up/mailing (location)/calling in/eprescribe? eprescribe 30 day supply/90 day supply? Meme Lemus 39:29 documented in this encounter Plan of Treatment Upcoming Encounters Date Type Department Care Team (Late st Contact Info) Description 02/13/2024 13:00 EST Office Visit [facility] Neurology - S [address] [id number] Alta Walter MD [address] [place] [address], Level [address] [place] [address] documented as of this encounter Visit Diagnoses Not on filedocumented in this encounter Discontinued Medications Medication Sig Discontinue Reason Start Date End Da te clonazePAM (KLONOPIN) 1 mg tablet Take 1.5 Tablets by mouth 2 times daily AND 1 Tablet daily. Daily Max: 4 mg. Reorder 12/14/2021 06/16/2022 documented as of this encounter Care Teams Assistant Superintendent Relationship Specialty Start Date End Date Yumiko Tavarez MD [address] [place] [address] PCP - General 12/29/19 documented as of this encounter
--- OUTSIDE RECORDS SUMMARY | 2023-09-21 17:01 | XMS_ITS | Encounter Summary ---
Author Organization [facility] Address [address] [place] [address] Care Team Providers Care Cooling Tower Technician Name Role Phone Yumiko Tavarez MD Primary Care Provider [phone] Reason for Visit * Reason Onset Date Comments Medication Management 09/30/2021 Encounter Details Date Type Department Care Team (Late st Contact Info) Description 09/30/2021 Telephone [facility] Neurology - S [address] [id number] Alta Walter MD [address] [place] [address] [address] [place] [phone] Medication Management Social History Tobacco Use Types Packs/Day Years [...] Tablets by mouth 2 times daily AND 0.5 Tablets daily. Daily Max: 3.5 mg. 105 Tablet 5 10/12/2021 12/14/2021 documented in this encounter Miscellaneous Notes * Addendum Note - Alta Del Valle MD - 10/12/2021 0957 EDTAddended by: ALTA DEL VALLE on: 10/12/2021 09:57 Modules accepted: Orders * Addendum Note - Alta Laughlin RN - 10/12/2021 0823 EDTAddended by: ALTA LAUGHLIN on: 10/12/2021 08:23 Modules accepted: Orders * Telephone Encounter - Alta Laughlin RN - 10/04/2021 1327 EDT 39 tabs should last 11 days taking 3.5 tabs per day. Refill will be needed by October 14. [employer] message to Miguelina requesting she request the refill next Sunday. * Telephone Encounter - Alta Laughlin RN - 10/04/2021 1324 EDT Per separate Abigail Stewartt message from Miguelina 10/03/21: Alta, you asked how many Klonopin I have left. I counted and there is [address] Del Valle writes new script, could you please have her send it to [facility] on [facility] in [place]. Also if you could just shoot me a quick text letting me know what day. Or actually, when I run out, I'll know it's time to get new one. Thank you, Miguelina * Telephone Encounter - Alta Laughlin RN - 10/03/2021 0815 EDT Medication Rx Request Medication: clonazePAM (KLONOPIN) 1 mg tablet Last Visit in login department: 09/29/2021 Next appointment Scheduled: 12/01/2021 Date previous Rx written: 09/16/2021 30 days w/ 5 RF (1.5mg BID) OVN Dr. Del Valle 09/29/2021 indicates: - continue clonazepam 1mg - 1.5 tablets BID + 0.5mg mid-day VPMS Inquiry needed? yes The [place] Prescription Monitoring System query has been completed per the following requirement(s): annual If yes, date of last fill: 09/16/2021 Documentation Reviewed TC to Miguelina to ask how much clonazepam she has remaining to calculate when new rx for increased doseis needed. She is not home at this time but will message with information when she is. No further questions at this time. * Telephone Encounter - Naye Lara - 09/30/2021 8597 EDT Miguelina called in this afternoon looking to see if the medication refill that Dr. Del Valle was going to call in for her after her appointment yesterday, September 29, 2021. The medication is for clonazePAM (KLONOPIN) 1 mg tablet. She states that the dosage hs changed. She uses the [id number] Please call to advise. Thank you documented in this encounter Plan of Treatment Upcoming Encounters Date Type Department Care Team (Late st Contact Info) Description 02/13/2024 13:00 EST Office Visit [facility] Neurology - S [address] [address] Alta Walter MD [address] [place] [address] [address] [place] [address] documented as of this encounter Visit Diagnoses Not on filedocumented in this encounter Discontinued Medications Medication Sig Discontinue Reason Start Date End Da te clonazePAM (KLONOPIN) 1 mg tablet Take 1.5 Tablets by mouth 2 times daily. Daily Max: 3 mg Reorder 09/16/2021 10/12/2021 documented as of this encounter Care Teams Cooling Tower Technician Relationship Specialty Start Date End Date Yumiko Tavarez MD [address] [place] [address] PCP - General 12/29/19 documented as of this encounter
--- OUTSIDE RECORDS SUMMARY | 2023-09-21 17:01 | XMS_ITS | Encounter Summary ---
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 gait dysfunction Alta Walter MD [address] [place] [phone] Referral ID Status Reason Start Date Expiration Date V isits Requested Visits Authorized [id number] Closed Specialty Services Required 01/02/2023 1 1 Question Answer Reason for Request: Patient with involuntary movements / functional neurological disorder, please help with gait / motor reprogramming Practice Site (External Referral Only): [facility] - Rehabilitation Department Comments [facility] Moreno, [facility] Reason for Visit * Reason Comments Follow-up Encounter Details Date Type Department Care Team (Late st Contact Info) Description 01/01/2023 13:15 EDT Office Visit [facility] Neurology - [address] [phone] Alta Walter MD [address] [place] [phone] Tardive dyskinesia (Primary Dx); Functional neurological symptom disorder with abnormal movement; Neurologic gait dysfunction Social History Tobacco Use Types Packs/Day Years [...] Sign Reading Time Taken Comments Blood Pressure 108/78 01/01/2023 1308 EDT Pulse 77 01/01/2023 1308 EDT Temperature - - Respiratory Rate - - Oxygen Saturation 100% 01/01/2023 1308 EDT Inhaled Oxygen Concentration - - Weight - - Height - - Body Mass Index - - documented in this encounter Ordered Prescriptions Prescription Sig Dispensed Refills Start Date End Da te clonazePAM (KLONOPIN) 1 mg tablet Take 1.5 Tablets by mouth 2 times daily AND 1 Tablet daily. Daily Max: 4 mg. 120 Tablet 5 01/01/2023 documented in this encounter Progress Notes * Alta Walter MD - 01/01/2023 1315 EDT Images from the original note were not included. Type of visit: Follow-up visit Clinician Requesting Consultation: No referring provider defined for this encounter. Phone: N/A Fax: Primary Director Of Integrated Marketing: Yumiko Tavarez [address] [place] [phone] ASSESSMENT & PLAN / RECOMMENDATIONS 1. Tardive dyskinesia 2. Functional neurological symptom disorder with abnormal movement Miguelina Morales is a 57 y.o. woman who returns to the [facility] Disorders clinic for evaluation and management of involuntary movements, likely tardive dyskinesia given exposure in the past to various neuroleptics and SSRIs, with a component of functional tremor as well. She reports hyperkinetic movements since at least 2011, which started distally in the toes and progressed proximally, including some mild orobuccolingual movements. Since we have been working together, she has retried tetrabenazine but could not tolerate it, tried deutetrabenazine with no benefit and no side effect, and tried valbenazine but experienced what sounds like a paradoxical dystonic reaction. Starting in May 2021, we agreed to a trial of clonazepam and it seems to have helped with appendicular and orobuccolingual movements, though they are ongoing. I have not evaluated her in person since February 2020, and her examination looks quite similar today - she does not have signs of parkinsonism, but has an intermittent tremulous movement in the right hand that is irregular and distractible, as well as an irregular sometimes tremulous and sometimes choreic movement in the left leg. -- HYPERKINETIC INVOLUNTARY MOVEMENTS: Likely a combination of tardive dyskinesia (oral buccal facial movements) but ongoing tremor and other involuntary movements in the arms and legs are most consistent with a functional neurological disorder, likely exacerbated by new / ongoing stressors and PTSD. She does not have clinical evidence of parkinsonism at this time, and the repeat DaTscan was normal - she is concerned about the vastly different DatScan reports despite my reassurance that her clinical examination does not appear consistent with parkinsonism - this is again the case today which fully supports that she does not have PD as it should have evolved over 3+ years. For TD, we have tried every VMAT2 inhibitor, but none seem to help her movements and the valbenazine paradoxically worsened them. It is possible that these movements are functional as well, though she does have a history of exposure to neuroleptics that could support a diagnosis of TD. I do think symptoms are better on the clonazepam, though she decreased the dosage in the interim and could explain why symptoms areworse today. - continue clonazepam: she is currently taking 1.5mg BID, okay to introduce a mid-day dosage with maximum of 4mg / day - discussed some evidence for gingko biloba, but she is not interested - recommend discussing cognitive behavioral therapy with her new therapist later this week to see if that would be a possibility, as that is the best option to help with FND / connectivity issues - referral to PT to work on gait / balance, motor reprogramming for FND Return to clinic: 6 months, on-site SUBJECTIVE Reason for consultation/ Chief complaint: Tardive dyskinesia, functional neurological disorder History of Presenting Illness (HPI): Miguelina Morales is a 57 y.o. woman who was referred to the [facility] clinic for evaluation and [...] time for pain. Interval history (last visit 12/07/2022 via Telehealth): She added back the daytime clonazepam and that seems to have helped, planning to add the mid-day dose as well. She was on bupropion for a monthor so recently, but this was recently discontinued since it wasn't helpful. She has a prescription for citalopram, and will start taking that today. She also has a zoom appointment for a therapist later this week. Overall, she reports an increase in stressors leading to worsening mood more recently. She recalls participating in PT in the past (I have notes from 2021), which she recalls being for her neck mobility and pain. Current TD medications: - clonazepam 1m.5 tablets in the morning and 1.5 tablets at bedtime Previous medication trials for [...] 2mg - reportedly was helpful for symptoms - buproprion up to 200mg / daily (12/2022) was not helpful for mood, didn't make tremor worse Previous seizure medications: - lamotrigine - topiramate ROS: A comprehensive 13 system review was negative or documented in the HPI with the following additions/exceptions: - muscle cramps: both hands, stomach, calves, feet - neuropathy: painful, takes pregabalin - insomnia: takes zolpidem to help fall asleep but wakes frequently - RBD: vivid dreaming, talks or laughs in her sleep, has more recently acted out dreams - mood: stable, has history of depression/anxiety, PTSD, OCD. Maybe some worsening of mood over thelast month or so. - no cognitive complaints, good memory - swallowing difficulty: has dysphagia, referral sent to [facility] - urinary dysfunction: okay in the morning when she first wakes up, then feels like later on she has a hard time going and she has to focus on it, not urinary frequency Current Medications: Outpatient Medications Marked as Taking for the 01/01/23 encounter (Office Visit) with Alta Walter MD Medication Sig Dispense Refill ??? calcium carbonate (TUMS) 200 mg calcium (500 mg) tablet,chewable Take 2 Tablets by mouth 2 times daily. ??? cholecalciferol (VITAMIN D3) 1,250 mcg (50,000 unit) capsule Take 1 Capsule by mouth once a week. ??? citalopram (CELEXA) 20 mg tablet Take 1 Tablet by mouth daily. ??? clonazePAM (KLONOPIN) 1 mg tablet Take [...] hours. ??? pregabalin (LYRICA) 150 mg capsule every morning. ??? pregabalin (LYRICA) 50 mg capsule 2 Capsules. In PM ??? 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 OBJECTIVE Vital Signs Vitals: 01/01/23 1308 BP: 108/78 BP Cuff Location: Left arm BP Patient Position: Sitting BP Cuff Sizes: Adult, regular Pulse: 77 SpO2: 100% Vital signs were reviewed. General Physical Examination Well-appearing woman, in no acute distress. Pleasant and interactive. Eyes without icterus or injection. Normocephalic, atraumatic head and neck. Neurological Examination Alert, appropriate, and oriented. Normal recall of recent and remote personal and medical history. Normal insight and judgment. Fluent clear speech, intact comprehensive and expressive language. No hypophonia, no dysarthria. No vocal tremor appreciated. Face appear symmetric at rest and with activation, no hypomimia. Hearing is intact to casual conversation during video visit. Normal bulk in all limbs. Full strength in all muscle groups tested. While seated, she had normal and symmetric spontaneous movements of the extremities. Repetitive movements of the upper and lower extremities were labored, but actually did not appear to decrement. She does appear to have the usual irregular tremor in the right hand, and demonstrates some mild tremulous movements in the left that are less frequent. When she rises to a standing position, she holds the right wrist slightly flexed, and there is a slow flexion/extension motion at the right wrist.Other times, this movement is flexion/extension at the MCP/PIP joints. There is also another movement that is more irregular and writing, like chorea. In the right leg, she has frequent rhythmic tapping. The frequency of these movements is variable during the examination - at times there is a rapid tapping of her ankle while her toes are planted onthe ground and she is performing other maneuvers, other times there are alternating bouncing movements of both feet on and off the ground, other times there is a much slower tapping of the toes. Rarely, the movement becomes more choreiform and not at all tremulous. Whenever she is engrossed in discussion of her symptoms, the movements essentially cease. ?? Persistent throughout the exam were involuntary orobuccofacial movements, with mild tongue protrusion and chewing motions. She is able to rise from a seated position, though does so cautiously. Initially upon standing, shehas some bouncing movements of the legs but this improves as she starts walking. She appears unsteady with irregular foot placement, but overall able to ambulate without assistance. She attempts tandem gait and demonstrates astasia-abasia gait. DATA No data to review today. Previous data: NM IRMA SPECT (05/20/2020) -- images were personally reviewed: No evidence of parkinsonian disorder. NM IRMA SPECT (01/10/2017) -- images were personally reviewed: Moderately decreased activity in the left caudate and severely decreased activity within the left putamen. Relatively normal activity within the right caudate and putamen. ATTESTATION A total of 40 minutes were spent on this visit. Time dedicated to this visit was spent on the following activities: Patient/child care aide education Review of the pertinent information in the electronic health record Care plan formulation Supportive counseling Ordering of diagnostic test(s) Ordering of medication(s) Scanned health information available from the referring and/or primary provider(s) Alta Thakkar MD Attending Physician, Movement Disorders Department of Neurology documented in this encounter Plan of Treatment Upcoming Encounters Date Type Department Care Team (Late st Contact Info) Description 02/13/2024 13:00 EST Office Visit [facility] Neurology - [address] [id number] Alta Walter MD [address] [place] [address] [address] [place] [phone] Scheduled Referrals Name Type Priority Associated Diagnoses Order Schedule AMB CONS/FOLLOW UP PHYSICAL THERAPY - OUTSIDE OF NETWORK Outpatient Referral Routine/Next Available Functional neurological symptom disorder with abnormal movement Neurologic gait dysfunction Expected: 01/09/2023 (Approximate), Expires: 01/03/2024 documented as of this encounter Visit Diagnoses Diagnosis Tardive dyskinesia- Primary Subacute dyskinesia due to drugs 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 Daily Max: 4 mg. Reorder 06/22/2022 01/01/2023 bupropion HCl (WELLBUTRIN XL ORAL) Take 100 mg by mouth 2 times daily. Patient Stopped Taking 01/01/2023 documented as of this encounter Historical Medications * This list may reflect changes made after this encounter. Medication Sig Dispensed Refills Start Date End Date citalopram (CELEXA) 20 mg tablet Take 1 Tablet by mouth daily. added in this encounter Care Teams Theatrical Variety Agent Relationship Specialty Start Date End Date Yumiko Tavarez MD [address] [place] [phone] PCP - General 12/29/19 documented as of this encounter
--- OUTSIDE RECORDS SUMMARY | 2023-09-21 17:01 | XMS_ITS | Encounter Summary ---
Author Organization [facility] Address [address] [place] [address] Care Team Providers Care Logistics Supervisor Name Role Phone Yumiko Tavarez MD Primary Care Provider [phone] Reason for Visit * Reason Onset Date Comments Appointment Related 12/13/2022 Encounter Details Date Type Department Care Team (Late st Contact Info) Description 12/13/2022 Telephone [facility] Neurology - S [address] [phone] Alta Walter MD [address] [place] [address] [address] [place] [phone] Appointment Related Social History Tobacco Use Types [...] * Telephone Encounter - Meme Lemus - 12/25/2022 1055 EDT Sarahied Miguelina, schedule a FOLLOW UP ON-SITE appointment with Dr. Thakkar on Sunday05/23/2023 at2:00 PM. * Telephone Encounter - Nyae Lara - 12/18/2022 0906 EDT Miguelina called in this morning needing to cancel her follow up for today at 3:[address] Dr[address] Thakkar. She is sick and cannot make it in. Please call to reschedule. Thank you * Telephone Encounter - Meme Lemus - 12/13/2022 1108 EDT Outreached Miguelina,scheduled a FOLLOW UP On appointment with Dr. Thakkar on Sunday12/18/2022 at 3:45 PM. documented in this encounter Plan of Treatment Upcoming Encounters Date Type Department Care Team (Late st Contact Info) Description 02/13/2024 13:00 EST Office Visit [facility] Neurology - [address] [address] Alta Walter MD [address] [place] [address] [address] [place] [phone] documented as of this encounter Visit Diagnoses Not on filedocumented in this encounter Care Teams Logistics Supervisor Relationship Specialty Start Date End Date Yumiko Tavarez MD [address] [place] [phone] PCP - General 12/29/19 documented as of this encounter
--- OUTSIDE RECORDS SUMMARY | 2023-09-21 17:01 | XMS_ITS | Encounter Summary ---
Author Organization [facility] Address [address] [place] [address] Care Team Providers Care Pin Puller Name Role Phone Yumiko Tavarez MD Primary Care Provider Encounter Details Date Type Department Care Team (Late st Contact Info) Description 07/26/2022 Lab Requisition [facility] Pathology & Laboratory Medicine - [facility] [address] [place], [place] [address] Sevlin Marie MD [address] [place] [phone] Encounter for screening for malignant neoplasm of colon Social History Tobacco Use Types Packs/Day Years [...] Info) Description 02/13/2024 13:00 EST Office Visit [facility] Neurology - [address] [place] [address] [place], [place] [phone] Alta Walter MD [address] [place] [address], [address] [place] [phone] documented as of this encounter Procedures Procedure Name Priority Date/Time Associated Diagnosis Comments SURGICAL PATHOLOGY Today 07/26/2022 8:49 EDT Encounter for screening for malignant neoplasm of colon documented in this encounter Results * SURGICAL PATHOLOGY (07/26/2022 8:49 EDT) Note to Patient The following pathology results have been interpreted by your pathologist and may be available to you before your health provider has had the opportunity to review them. Please allow time for your provider to receive these results and explore management options, if applicable. 07/27/2022 16:57 [facility] Final Diagnosis A. COLON, TRANSVERSE, POLYP, BIOPSY: - Hyperplastic polyp. - Deeper levels examined. B. COLON, SIGMOID, POLYP, BIOPSY: - Hyperplastic polyp. 07/27/2022 16:57 [facility] Attestation By the signature below, the attending physician certifies that they have 1) personally conducted a gross and/or microscopic examination of the described specimen(s), and/or personally interpreted the results of laboratory testing of the described specimen(s), and 2) personally rendered or confirmed the above diagnosis. 07/27/2022 16:57 [facility] at 1657 Clinical History Screening colonoscopy; diverticulosis, colon polyp 07/27/2022 16:57 [facility] Gross Description A. Received in formalin labelled with proper patient identification (initials C, L) and transverse colon polyp x1 is a 0.3 x 0.3 x 0.1 cm painting-pink tissue. Submitted intact in A1. B. Received in formalin labelled with proper patient identification (initials C, L) and sigmoid colon polyp x1 is a painting-pink tissue measuring 0.3 x 0.2 x 0.1 cm. Submitted intact in B1. CHRIS FREY(ASCP) 07/26/2022 18:02 07/27/2022 16:57 [facility] Performing Lab [facility] 07/27/2022 16:57 [facility] Scanned Images 07/27/2022 16:57 [facility] Tissue ENTIRE SIGMOID COLON / Unknown 07/26/2022 8:49 EDT 07/26/2022 16:54 EDT Tissue specimen (specimen) SIGMOID COLON STRUCTURE / Unknown 07/26/2022 8:49 EDT 07/26/2022 16:54 EDT Selvin Marie MD PATHOLOGY ORDERABLES [facility] [address] [place] [address] documented in this encounter Visit Diagnoses Diagnosis Encounter for screening for malignant neoplasm of colon Special screening for malignant neoplasms, colon documented in this encounter Care Teams Pin Puller Relationship Specialty Start Date End Date Yumiko Tavarez MD [address] [place] [phone] PCP - General 12/29/19 documented as of this encounter
--- OUTSIDE RECORDS SUMMARY | 2023-09-21 17:01 | XMS_ITS | Encounter Summary ---
Author Organization [facility] Address [address] [place] [address] Care Team Providers Care Pediatric Nurse Name Role Phone Yumiko Tavarez MD Primary Care Provider [phone] Encounter Details Date Type Department Care Team (Late st Contact Info) Description 06/23/2021 Telephone [facility] [place] [facility] Neurology - S [address] [address] Alta Walter MD [address] [place] [address] [address] [place] [phone] Social History Tobacco Use Types Packs/Day [...] encounter Miscellaneous Notes * Telephone Encounter - Veronica Vaughn RN - 06/24/2021 1053 EDT FYI Pharmacist called to inform that oxycodone-acetaminophen 10-325 mg Take 1 Tab by mouth every 6 hours was Currently being prescribed and used by her PCP. Miguelina currently takes Clonazapam 0.5mg 2 tablets twice a day Naloxone ( Narcan) PRN was ordered Routed to for review * Telephone Encounter - Geraldo Kwon - 06/23/2021 [...] Info) Description 02/13/2024 13:00 EST Office Visit [facility] Neurology - [address] [address] Alta Walter MD [address] [place] [address], [address] [place] [phone] documented as of this encounter Visit Diagnoses Not on filedocumented in this encounter Care Teams Pediatric Nurse Relationship Specialty Start Date End Date Yumiko Tavarez MD [address] [place] [phone] PCP - General 12/29/19 documented as of this encounter
--- OUTSIDE RECORDS SUMMARY | 2023-09-21 17:01 | XMS_ITS | Encounter Summary ---
Author Organization [facility] Address [address] [place] [address] Care Team Providers Care Marine Diesel Mechanic Name Role Phone Yumiko Tavarez MD Primary Care Provider [phone] Reason for Visit * Reason Comments Follow-up Telemedicine Video Visit Encounter Details Date Type Department Care Team ([facility] st Contact Info) Description 06/15/2022 16:00 EDT Telemedicine [facility] Neurology - S [address] [id number] Alta Walter MD [address] [place] [address] Level 2 [place] [address] Tardive dyskinesia (Primary Dx); Functional neurological symptom disorder with abnormal movement [...] Progress Notes * Alta Walter MD - 06/15/2022 1600 EDT Images from the original note were not included. Type of visit: Follow-up Telehealth visit Clinician Requesting Consultation: Yumiko Tavarez MD [address] [place] [phone] Fax: Primary Shirt Folder: Yumiko Tavarez [address] [place] [phone] ASSESSMENT & PLAN / RECOMMENDATIONS 1. Tardive dyskinesia 2. Functional neurological symptom disorder with abnormal movement Miguelina Morales is a 57 y.o. woman who returns to the [facility] Disorders clinic for evaluation and [...] to have helped with appendicular and orobuccolingual movements. On video today, I did not witness any spontaneous movements around the mouth but she does show me some irregular movements in the feet. -- HYPERKINETIC [...] mid-day --> we have tried all other FDA-approved treatment options for TD, and the clonazepam has been the only medication that is effective for her symptoms - continue with physical therapy exercises for back and neck pain - in the past, I have suggested pursuing cognitive behavioral therapy or biofeedback, since it could potentially help with the stress- and anxiety- induced components of her disorder, but she is not particularly interested. Return to clinic: 6 months, via telehealth SUBJECTIVE Reason for consultation/ Chief complaint: Tardive dyskinesia History of Presenting Illness (HPI): Miguelina Morales is a 57 y.o. woman who was referred to the [facility] Disorders clinic for evaluation and [...] time for pain. Interval history (last visit 09/29/2021 via Telehealth): The clonazepam still helps some with the movements. She thinks it helps her to sleep through the night, as she is less likely to have involuntary movements in the legs and hands. She is taking zolpidem as well, but only on nights when she feels like she cannot fall asleep. She is sick today with a fever, congestion, full body aches - tested and wasn't COVID. Current TD medications: - clonazepam 1mg - 1.5 tablets in the morning, 1 tablet mid-day, 1.5 tablets at bedtime Previous medication trials [...] difficulty - has dysphagia, referral sent to [facility] Urinary dysfunction - okay in the morning when she first wakes up, then feels like later on she hasa hard time going and she has to focus on it, not urinary frequency Current Medications: Outpatient Medications Marked as Taking for the 06/15/22 encounter (Telemedicine) with Alta Walter MD Medication [...] naloxone (NARCAN) 4 mg/actuation nasal spray 1 [place] by nasal route as needed. ??? 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 I did not witness any orobuccolingual movements throughout the interview The remainder of her exam was deferred due to her feeling unwell. DATA No data to review today. Previous [...] visit was spent on the following activities: Patient/career discovery teacher education Review of the pertinent information in the electronic health record Care plan formulation Supportive counseling Scanned health information available from the referring and/or primary provider(s) Alta Thakkar MD Attending Physician, Movement Disorders Department of Neurology documented in this encounter Plan of Treatment Upcoming Encounters Date Type Department Care Team (Late st Contact Info) Description 02/13/2024 13:00 EST Office Visit [facility] Neurology - S [address] [address] Alta Walter MD 1 [facility], Level [address] [place] [phone] documented as of this encounter Visit Diagnoses Diagnosis Tardive dyskinesia- Primary Subacute dyskinesia due to drugs 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
--- OUTSIDE RECORDS SUMMARY | 2023-09-21 17:01 | XMS_ITS | Encounter Summary ---
Author Organization [facility] Address [address] [place] [address] Care Team Providers Care Highballer Name Role Phone Yumiko Tavarez MD Primary Care Provider [phone] Reason for Visit * Reason Onset Date Comments Medication Management 08/15/2021 Encounter Details Date Type Department Care Team (Late st Contact Info) Description 08/15/2021 Telephone [facility] Neurology - S [address] [phone] Alta Walter MD [address] [place] [address] [address] 2 [place] [phone] Medication Management Social History Tobacco Use Types [...] Daily Max: 3 mg 90 Tablet 5 08/15/2021 09/16/2021 documented in this encounter Miscellaneous Notes * Telephone Encounter - Carline Trimble RN - 08/18/2021 1248 EDT TC to patient. She did fruit or nut picker her new prescription and was scheduled for a televideo visit with Dr. Thakkar. No other questions or concerns. * Telephone Encounter - Carline Trimble RN - 08/15/2021 1426 EDT Images from the original note were not included. Alta Thakkar MD Neuro Move Bath Mix Operator; Meme Lemus 1 hour ago (12:45) We can try a higher dose - I will send in a new script. Since she has the 0.5mg tablets - she can take 3 twice a day. The new script will be 1mg tablets - so once she switched it will be 1.5 tablets with each dose. I am including Meme about the Sunday visit. LD * Telephone Encounter - Carline Trimble RN - 08/15/2021 1209 EDT TC to patient. She states. Would like to increase her clonopin to 1.5 mg twice per day as she thinks it will improve her tardive dyskinesia more as well as help with the shaking she experiences in her legs and feel. Patient reports that sine she has started this medication, she notices that she is able to void much easier no than she has in the past 4 years. She typically spends around 45 minutesin the bathroom trying to empty her bladder and now she can go in and void with no difficulties. Patient also is asking if her next appointment can be a televideo appointment instead of in person. * Telephone Encounter - Geraldo Kwon - [...] [facility] - [place] [address] [place] [address] Alta Walter MD 1 [facility], Level [address] [place] [address] documented as of this encounter Visit Diagnoses Not on filedocumented in this encounter Discontinued Medications Medication Sig Discontinue Reason Start Date End Da te clonazePAM (KLONOPIN) 0.5 mg tablet Take 2 tablets in the morning and 1 tablet at night x 1 week, then 2 tablets twice daily thereafter Dose adjustment 06/23/2021 08/15/2021 documented as of this encounter Care Teams Highballer Relationship Specialty Start Date End Date Yumiko Tavarez MD [address] [place] [phone] PCP - General 12/29/19 documented as of this encounter
--- OUTSIDE RECORDS SUMMARY | 2023-09-21 17:01 | XMS_ITS | Clinical Summary ---
Author Organization [facility] Address [address] [place] [address] Care Team Providers Care Screw Cutter Name Role Phone Yumiko Tavarez MD Primary Care Provider [phone] Allergies Active Allergy Reactions Criticality Noted Date Comments Antihistamines - Alkylamine 02/23/20 20 Gabapentin 02/23/2020 Mirtazapine 02/23/2020 Procaine 02/23/2020 Medications Medication Sig Dispensed Refills Start Date End Date Status calcium carbonate (TUMS) 200 mg calcium (500 mg) tablet,chewable Take 2 Tablets by mouth 2 times daily. Active cholecalciferol (VITAMIN D3) 1,250 mcg (50,000 unit) capsule Take 1 Capsule by mouth once a week. Active cyanocobalamin 1,000 mcg tablet Take 1 Tablet by mouth daily. Active folic acid (FOLVITE) 1 mg tablet Take 1 Tablet by mouth daily. Active naloxone (NARCAN) 4 mg/actuation nasal spray 0.1 mL by nasal route as needed. Active omeprazole (PRILOSEC) 20 mg capsule Take 1 Capsule by mouth every morning. 12/17/2019 Active oxyCODONE-acetaminop hen (PERCOCET) 10-325 mg per tablet Take 1 Tablet by mouth every 6 hours. Active pregabalin (LYRICA) 50 mg capsule 2 Capsules. In PM 02/02/2020 Acti ve pregabalin (LYRICA) 150 mg capsule every morning. 02/02/2020 Active zolpidem (AMBIEN) 10 mg tablet Take 1 Tablet by mouth. Every other night Active citalopram (CELEXA) 20 mg tablet Take 1 Tablet by mouth daily. Active clonazePAM (KLONOPIN) 1 mg tablet Take 1.5 Tablets by mouth 2 times daily AND 1 Tablet daily. Daily Max: 4 mg. 120 Tablet 5 01/01/2023 Active Active Problems Problem Noted Date Diagnosed Date Tardive dyskinesia 05/26/2020 Functional neurological symp lizz disorder with abnormal movement 05/26/2020 Anxiety 05/26/2020 Involuntary movements 02/24/2020 Tremor 02/24/2020 PTSD (post-traumatic stress disorder) 02/24/2020 Peripheral neuropathy 02/24/2020 Encounters Date Type Department Care Team Description 08/02/[address] [facility] Neurology [address] [phone] Alta Walter MD Appointment Related 07/06/[address] [phone] Alta Walter MD Appointment Related 07/05/2023 13:00 EDT Telemedicine [address] [phone] Alta Walter MD Tardive dyskinesia (Primary Dx); Functional neurological symptom disorder with abnormal movement; Postural tremor from Last 3 Months Social History Tobacco Use Types Packs/Day Years Used Date Smoking Tobacco: Every Day Cigarettes 1 25 Smokeless Tobacco: Never Tobacco Cessation:Ready to Q uit: Not Asked; Counseling Given: Not Answered Interpersonal Safety Answer Date Record ed Physically Hurt Never 10/05/2019 Verbally Threaten Not on file 10/05/2019 Sex and Gender Information Value Date Recorded Sex Assigned at Not on file Gender Identity Female 12/29/2019 9:52 EDT Sexual Orientation Not on file Obstetrics History Last Filed Vital Signs Vital Sign Reading Time Taken Comments Blood Pressure 108/78 01/01/2023 1308 EDT Pulse 77 01/01/2023 1308 EDT Temperature - - Respiratory Rate 16 02/23/2020 1318 EST Oxygen Saturation 100% 01/01/2023 1308 EDT Inhaled Oxygen Concentration - - Weight 66.9 kg (147 lb 6.4 oz) 02/23/[address] Height 149.9 cm (4' 11) 02/23/2020 1318 EST Body Mass Index 29.77 02/23/2020 1318 EST Plan of Treatment Upcoming Encounters Date Type Department Care Team (Late st Contact Info) Description 02/13/2024 13:00 EST Office Visit [facility] Neurology - S [place] [address] [place], [place] [phone] Alta Walter MD [address] [place] [address], Level 2 [place] [phone] Health Maintenance Due Date Last Done Comments Hepatitis C Screen 1965 Lung Cancer Screening 1965 Pneumococcal Immunization (1 of 2 - PCV) 1969 COVID-19 Vaccine ( - 2022-24 season) 2022 RSV Immunization ( o r 60+ Years) (1 - 1-dose 60+ series) 2023 Care Teams Screw Cutter Relationship Specialty Start Date End Date Yumiko Tavarez MD [address] [place] [phone] PCP - General 12/29/19
--- OUTSIDE RECORDS SUMMARY | 2023-09-21 17:01 | XMS_ITS | Referral Summary ---
Author Organization [facility] Address [address] [place] [address] Care Team Providers Care Senior Scheduler Name Role Phone Yumiko Tavarez MD Primary Care Provider [phone] Encounters Date Type Department Care Team Description 08/02/[address] [phone] Alta Walter MD Appointment Related 07/06/[address] [phone] Alta Walter MD Appointment Related 07/05/2023 13:00 EDT Telemedicine [address] [phone] Alta Walter MD Tardive dyskinesia (Primary Dx); Functional neurological symptom disorder with abnormal movement; Postural tremor from Last 3 Months Allergies Active Allergy Reactions Criticality Noted Date [...] (post-traumatic stress disorder) 02/24/2020 Peripheral neuropathy 02/24/2020 Social History Tobacco Use Types Packs/Day Years [...] 9:52 EDT Sexual Orientation Not on file Last Filed Vital Signs [...] 02/13/2024 13:00 EST Office Visit [facility] Neurology - S [place] [address] [place], [place] [address] Alta Walter MD 1 [facility], Level [address] [place] [phone] Care Teams Senior Scheduler Relationship Specialty Start Date End Date Daysi, Yumiko C, MD [address] [place] [phone] PCP - General 12/29/19
--- OUTSIDE RECORDS SUMMARY | 2023-09-21 17:01 | XMS_ITS | Encounter Summary ---
Author Organization [facility] Address [address] [place] [address] Care Team Providers Care Animal Trapper Name Role Phone Yumiko Tavarez MD Primary Care Provider [phone] Reason for Visit * Reason Onset Date Comments Appointment Related 02/28/2022 Encounter Details Date Type Department Care Team (Late st Contact Info) Description 02/28/2022 Telephone [facility] Neurology - S [address] [phone] Alta Walter MD [address] [place] [address] [address] [place] [phone] Appointment Related Social History Tobacco Use Types [...] encounter Miscellaneous Notes * Telephone Encounter - Ray Jaquez - 02/28/2022 0957 EST Miguelina rescheduled the TVD for 04/13/2022 at 13:00PM TVD FUR 4M [phone] Zoom scheduling needed documented in this encounter Plan of Treatment Upcoming Encounters Date Type Department Care Team (Late st Contact Info) Description 02/13/2024 13:00 EST Office Visit [facility] Neurology - S [place] [address] [place] [address] Alta Walter MD 1 [facility], Level [address] [place] [address] documented as of this encounter Visit Diagnoses Not on filedocumented in this encounter Care Teams Animal Trapper Relationship Specialty Start Date End Date Yumiko Tavarez MD [address] [place] [phone] PCP - General 12/29/19 documented as of this encounter
--- OUTSIDE RECORDS SUMMARY | 2023-09-21 17:01 | XMS_ITS | Encounter Summary ---
Author Organization [facility] Address [address] [place] [address] Care Team Providers Care Accounts Receivable Clerk Name Role Phone Yumiko Tavarez MD Primary Care Provider [phone] Encounter Details Date Type Department Care Team (Latest Contact Info) Description 10/13/2022 Lab Requisition [facility] Pathology & Laboratory Medicine - [facility] [address] [place] [address] Yumiko Tavarez MD [address] [place] [phone] Encounter for gynecological examination (general) (routine) without abnormal findings; Encounter for general adult medical examination without [...] Info) Description 02/13/2024 13:00 EST Office Visit [facility] Neurology - S [address] [phone] Alta Walter MD [address] [place] [address] [address] [place] [phone] documented as of this encounter Procedures Procedure Name Priority Date/Time Associated Diagnosis Comments PAP TEST Today 10/11/2022 13:45 EDT Encounter for gynecological examination (general) (routine) without abnormal findings Encounter for general adult medical examination without abnormal findings documented in this encounter Results * PAP TEST (10/11/2022 13:45 EDT) Specimens A. Cervix and/or Endocervix , ThinPrep Imaging System with Manual Evaluation 10/19/2022 15:18 EDT [facility] Specimen Adequacy Unsatisfactory for evaluation-Insuf ficient number of squamous epithelial cells. Specimen processed and examined but preparation compromised by lubricant or other vaginal contaminant. 10/19/2022 15:18 EDT [facility] General Categorization Unsatisfactory 10/19/2022 15:18 T [facility] Educational Comments Unsatisfactory - Specimen processed and examined, but unsatisfactory for evaluation of epithelial abnormality. Recommend repeat age-based screening after 2-4 months per ASCCP Guidelines which may be found at www.asccp.org. HPV testing will not be performed due to the potential for false negative results. 10/19/2022 15:18 EDT [facility] Attestation . 10/19/2022 15:18 T [facility] at 1518 Clinical History See below 10/20/19 23 15:18 T [facility] Performing Lab [facility] 10/19/2022 15:18 T [facility] Scanned Images 10/19/2022 15:18 T [facility] Pap Test CERVIX UTERI STRUCTURE / Unknown 10/11/2022 13:45 EDT 10/13/2022 12:32 EDT Yumiko Tavarez MD PATHOLOGY ORDERABLES [facility] [address] [place] [address] documented in this encounter Visit Diagnoses Diagnosis Encounter for gynecological examination (general) (routine) without abnormal findings Encounter for general adult medical examination without abnormal findings Unspecified general medical examination documented in this encounter Care Teams Accounts Receivable Clerk Relationship Specialty Start Date End Date Yumiko Tavarez MD [address] [place] [phone] PCP - General 12/29/19 documented as of this encounter
--- OUTSIDE RECORDS SUMMARY | 2023-09-21 17:01 | XMS_ITS | Encounter Summary ---
Author Organization [facility] Address [address] [place] [address] Care Team Providers Care Planning Supervisor Name Role Phone Yumiko Tavarez MD Primary Care Provider [phone] Reason for Visit * Reason Onset Date Comments Medication Management 12/09/2021 Encounter Details Date Type Department Care Team (Late st Contact Info) Description 12/09/2021 Telephone [facility] Neurology - S [address] [phone] Alta Walter MD [address] [place] [address] [address] [place] [phone] Medication Management Social History Tobacco Use Types [...] Daily Max: 4 mg. 120 Tablet 5 12/14/2021 06/16/2022 documented in this encounter Miscellaneous Notes * Telephone Encounter - Alta Freeman RN - 12/14/[address] Thakkar as sent the new clonazapam rx with increase to 1mg midday. [employer] message to Miguelina. * Telephone Encounter - Alta Freeman RN - 12/14/2021 1321 EDT Medication Rx Request Medication: clonazePAM (KLONOPIN) 1 mg tablet Last Visit in login department: 09/29/2021 Next appointment Scheduled: 03/02/2022 Date previous Rx written: 10/12/2021 VPMS Inquiry needed? Yes The [place] Prescription Monitoring System query has been completed per the following requirement(s): annual If yes, date of last fill: 11/14/2021 Documentation Reviewed, prescription pended to provider for review & signature. * Telephone Encounter - Alta Freeman RN - 12/14/[address] Thakkar: I would be helpful to know why she is requesting a dose increase. If symptoms are worse, I am fine with the increase LD TC to Miguelina who states her symptoms are not worse, they have gotten better with the addition of clonazepam 0.5mg midday. PT has even noticed that she isn't having has much head shaking. However, the head shaking is still present and Miguelina believes an increase could provide additional benefit. * Telephone Encounter - Naye Lara - 12/14/2021 1049 EDT Miguelina called in this morning looking for an update in regards to increasing her afternoon dose of klonopin She is due for a refill and wanted to check on this before getting the refill. Please call [employer]. Thank you * Telephone Encounter - Alejo Dangelo - 12/09/2021 1612 EDT Miguelina called and said Dr Thakkar increased her clonazePAM (KLONOPIN) 1 mg tablet She now takes 1.5mg morning and night and .5mg in the afternoon. Miguelina would like to know if she can increase the afternoon dose to 1mg. Please call to advise Miguelina also scheduled TVD FUR 03/02/22 at 3:30pm TVD FUR 4M [email or web address] [phone] Zoom scheduling needed documented in this encounter Plan of Treatment Upcoming Encounters Date Type Department Care Team (Late st Contact Info) Description 02/13/2024 13:00 EST Office Visit [facility] Neurology - S [address] [phone] Alta Walter MD [address] [place] [address], [facility] [address] [place] [phone] documented as of this encounter Visit Diagnoses Not on filedocumented in this encounter Discontinued Medications Medication Sig Discontinue Reason Start Date End Da te clonazePAM (KLONOPIN) 1 mg tablet Take 1.5 Tablets by mouth 2 times daily AND 0.5 Tablets daily. Daily Max: 3.5 mg. Reorder 10/12/2021 12/14/2021 documented as of this encounter Care Teams Planning Supervisor Relationship Specialty Start Date End Date Yumiko Tavarez MD [address] [place] [phone] PCP - General 12/29/19 documented as of this encounter
--- OUTSIDE RECORDS SUMMARY | 2023-09-21 17:01 | XMS_ITS | Encounter Summary ---
Author Organization [facility] Address [address] [place] [address] Care Team Providers Care Database Coordinator Name Role Phone Yumiko Tavarez MD Primary Care Provider [phone] Reason for Visit * Reason Comments Follow-up Encounter Details Date Type Department Care Team (Late st Contact Info) Description 07/05/2023 13:00 EDT Telemedicine [facility] Neurology - [address] [address] Alta Walter MD [address] [place] [address] Level 2 [place] [phone] Tardive dyskinesia (Primary Dx); Functional neurological symptom disorder with abnormal movement; Postural tremor Social History Tobacco Use Types Packs/Day Years [...] Progress Notes * Alta Walter MD - 07/05/2023 1300 EDT Images from the original note were not included. Type of visit: Follow-up Telehealth visit Clinician Requesting Consultation: No referring provider defined for this encounter. Phone: N/A Fax: Primary Video Poker Floorman: Yumiko Tavarez [address] [place] [phone] ASSESSMENT & PLAN / RECOMMENDATIONS 1. Tardive dyskinesia 2. Functional neurological symptom disorder with abnormal movement 3. Postural tremor Miguelina Morales is a 57 y.o. woman [...] appendicular and orobuccolingual movements, though they are ongoing and worsen during periods of stress. -- HYPERKINETIC INVOLUNTARY MOVEMENTS: Likely a combination of tardive dyskinesia (oral buccal facial movements) but ongoing tremor and other involuntary movements in the arms and legs are most consistent with a functional neurological disorder, likely exacerbated by ongoing stressors and PTSD. Tulios not have clinical evidence of parkinsonism at this time, and the repeat DaTscan was normal - she is concerned about the vastly different DatScan reports despite my reassurance that her clinical examination does not appear consistent with parkinsonism. For TD, we have tried every VMAT2 inhibitor, but none seem to help her movements and the valbenazine paradoxically worsened them. It is possible that these movements are functional as well, though she does have a history of exposure to neuroleptics that could support a diagnosis of TD. - continue clonazepam 1 m.5 tablets in the morning / 1 tablets midday / 1.5 tablets in the evening (maximum of 4mg / day) --> can discuss with Dr Tavarez about switching from clonazepam to alprazolam, as she felt that the latter was more helpful for her anxiety; in general, we use long-actingbenzodiazepines for movement disorders - discussed some evidence for gingko biloba, but she is not interested - encouraged her to employ non-medication strategies to help with anxiety and stress Return to clinic: 4-6 months, on-site SUBJECTIVE Reason for consultation/ Chief complaint: Tardive dyskinesia, functional neurological disorder History of Presenting Illness (HPI): Miguelina Morales is a 58 y.o. woman who was referred to the [facility] Movement Disorders clinic for evaluation and management of involuntary movements. Accompanied by: self Handedness: right-handed Brief history: In ~2011, she started noticing involuntary movements in both legs, distally in the toes [...] on methadone at the time for pain. She was first evaluated by me in February 2020. Interval history (last visit 01/01/2023): She increased the clonazepam back to the previous dose (4mg /day) - states the increased dosage has helped mood / anxiety but does not seem to have helped with any movements. She continues to have a lot of stress in her life, which is affecting her mood andher ability to function. She describes bothersome muscle contractions that can occur anywhere throughout the body. Fingers in the right hand might lock up when she is doing something with the hand. She has tried magnesium in the past, as well as different muscle relaxers, which didn't help. Current TD medications: - clonazepam 1m.5 tablets in the morning, 1 tablet midday, 1.5 tablets at bedtime Previous medication trials [...] helpful for mood, didn't make tremor worse - citalopram - started in the fall 2022 but ran out and didn't refill it - didn't notice a difference Previous seizure medications: - lamotrigine - topiramate [...] swallowing difficulty: has dysphagia, referral sent to [facility] - urinary dysfunction: okay in the morning when she first wakes up, then feels like later on she has a hard time going and she has to focus on it, not urinary frequency Current Medications: Outpatient Medications Marked as Taking for the 07/05/23 encounter (Telemedicine) with Alta Walter MD Medication Sig Dispense Refill calcium carbonate (TUMS) 200 mg calcium (500 mg) tablet,chewable Take 2 Tablets by mouth 2 times daily. cholecalciferol (VITAMIN D3) 1,250 mcg (50,000 unit) capsule Take 1 Capsule by mouth once a week. clonazePAM (KLONOPIN) 1 mg tablet Take 1.5 Tablets by mouth 2 times daily AND 1 Tablet daily. DailyMax: 4 mg. 120 Tablet 5 cyanocobalamin 1,000 mcg tablet Take 1 Tablet by mouth daily. folic acid (FOLVITE) 1 mg tablet Take 1 Tablet by mouth daily. naloxone (NARCAN) 4 mg/actuation nasal spray 0.1 mL by nasal route as needed. omeprazole (PRILOSEC) 20 mg capsule Take 1 Capsule by mouth every morning. oxyCODONE-acetaminophen (PERCOCET) 10-325 mg per tablet Take 1 Tablet by mouth every 6 hours. pregabalin (LYRICA) 150 mg capsule every morning. pregabalin (LYRICA) 50 mg capsule 2 Capsules. In PM zolpidem (AMBIEN) 10 mg tablet Take 1 Tablet by mouth. 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 Previous in-person visit: She does appear to have the usual irregular tremor in the right hand, anddemonstrates some mild tremulous movements in the left that are less frequent. When she rises to a standing position, she holds the right wrist slightly flexed, and there is a slow flexion/extension motion at the right wrist. Other times, this movement is flexion/extension at the [...] of her symptoms, the movements essentially cease. Persistent throughout the exam were involuntary orobuccofacial [...] in patient???s medical or mental health care. Patient understands that they maybe responsible for copays, deductible or coinsurance for this service. I have reviewed the appropriateness of using video technology with the patient with regards to today's visit. The location of the patient : Home (where patient lives) The location of the provider: Office A total of 40 minutes were spent on this visit. 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
--- OUTSIDE RECORDS SUMMARY | 2023-09-21 17:02 | XMS_ITS | Encounter Summary ---
Author Organization [facility] Address [address] [place] [address] Care Team Providers Care Manufacturing Sr Engineer Name Role Phone Yumiko Tavarez MD Primary Care Provider [phone] Reason for Visit * Reason Onset Date Comments Other 04/06/2020 Encounter Details Date Type Department Care Team (Late st Contact Info) Description 04/06/2020 Telephone [facility] Neurology - S [address] [phone] Alta Walter MD [address] [place] [address] [address] 2 [place] [phone] Other Social History Tobacco Use Types Packs/Day Years Used Date Smoking Tobacco: Every Day Cigarettes 1 25 Interpersonal Safety Answer Date Record ed Physically Hurt Never 10/05/2019 Verbally Threaten Not on file 10/05/2019 Sex and Gender Information Value Date Recorded Sex Assigned at Not on file Gender Identity Female 12/29/2019 9:52 EDT Sexual Orientation Not on file documented as of this encounter Ordered Prescriptions Prescription Sig Dispensed Refills Start Date End Da te iodine strong (LUGOLS) 5 % solution Take 2 mls (100 mg iodine) orally 1 hour prior to exam. 1 Bottle 04/07/2020 05/26/2020 documented in this encounter Miscellaneous Notes * Telephone Encounter - Kane Parker RN - 04/07/2020 0921 EST Spoke with pt's pharmacy- they report that they can get the Lugol's solution and have already ordered it for the pt. Informed pt that Dr Thakkar ordered the Valentin scan and the lugol's solution was sent to [facility]-they will call her when ready. Informed her that she would receive a call from [facility] radiology to schedule the scan. She reports that she has had a Valentin scan in the past- reviewed with her that she willdrink the Lugol's solution an hour before her [...] needs to d/c prior to Valentin scan.Pt verbalized understanding. Informed her that Dr Thakkar would send her a message with medication options. * Telephone Encounter - Kane Parker RN - [...] she is still recommending it. Preferred pharmacy [facility] in [place], [place] * Telephone Encounter - Kena Marshall - 04/06/2020 [...] Description 02/13/2024 13:00 EST Office Visit [facility] Neurology - S [place] [address] [place] [address] Alta Waltre MD [address] [place] [address], Level [address] [place] [phone] documented as of this encounter Visit Diagnoses Diagnosis Parkinsonism, unspecified Parkinsonism type (HCC-CMS)- Primary documented in this encounter Care Teams Manufacturing Sr Engineer Relationship Specialty Start Date End Date Yumiko Tavarez MD [address] [place] [address] PCP - General 12/29/19 documented as of this encounter
--- OUTSIDE RECORDS SUMMARY | 2023-09-21 17:02 | XMS_ITS | Encounter Summary ---
Author Organization [facility] Address [address] [place] [address] Care Team Providers Care Hr Receptionist Name Role Phone Yumiko Tavarez MD Primary Care Provider [phone] Reason for Visit * Reason Onset Date Comments Medication Management 02/10/2021 Encounter Details Date Type Department Care Team (Late st Contact Info) Description 02/10/2021 Telephone [facility] Neurology - S [address] [phone] Alta Walter MD [address] [place] [address] Level 2 [place] [phone] Medication Management Social History Tobacco Use Types [...] encounter Miscellaneous Notes * Telephone Encounter - Geraldo Kwon - 02/15/2021 1115 EST Pt calls to check on the status of this prior auth, as described below, pt indicates she will call her insurance as well. Please call pt when we have something to report * Telephone Encounter - Marsha Beauchamp RN - 2021 1721 EST Phoned Miguelina to let her know that the process for getting the Ingrezza authorized has begun and thatwe will contact her once there is further info. She no longer is taking the Austedo. * Addendum Note - Cisco Vaughn RPH - 2021 1634 ESTAddended by: CISCO VAUGHN on: 2021 16:34 Modules accepted: Orders * Telephone Encounter - Naye Lara - 2021 1544 EST Patient called back this afternoon and I was able to ask about her medication. The one that she just finished up was for Austedo, and she thinks the one the doctor wants to switch her to is for impressa. Please call to advise. Thank you * Telephone Encounter - Marsha Beauchamp RN - 02/10/2021 1653 EST LM for Miguelina on unidentified voicemail stating that I would return call to her tomorrow to discuss the below. After I gather current s/sx status, will route message to Dr Thakkar for further direction. * Telephone Encounter - Naye Lara - 02/10/2021 1335 EST Patient was calling this afternoon to [...] 02/13/2024 13:00 EST Office Visit [facility] Neurology - S [place] [address] [place] [address] Alta Walter MD 1 [facility], Level [address] [place] [phone] documented as of this encounter Visit Diagnoses Diagnosis Tardive dyskinesia- Primary Subacute dyskinesia due to drugs documented in this encounter Care Teams Hr Receptionist Relationship Specialty Start Date End Date Yumiko Tavarez MD [address] [place] [phone] PCP - General 12/29/19 documented as of this encounter
--- OUTSIDE RECORDS SUMMARY | 2023-09-21 17:02 | XMS_ITS | Encounter Summary ---
Author Organization [facility] Address [address] [place] [address] Care Team Providers Care Hotbed Operator Name Role Phone Yumiko Tavarez MD Primary Care Provider [phone] Reason for Visit * Radiology Services (Routine) - Receiving Office to Obtain Authorization Specialty Diagnoses / Procedures Referred By Contac t Referred To Contact Nuclear Medicine Diagnoses Parkinsonism, unspecified Parkinsonism type (HCC-CMS) Procedures NM DATSCAN WITH SPECT/CT NM DATSCAN SPECT Alta Walter MD [address] [place] [address] 2 [place] [address] Referral ID Status Reason Start Date Expiration Date Visits Requested Visits Authorized [id number] Receiving Office to Obtain Authorization 04/07/2020 1 1 Encounter Details Date Type Department Care Team (Latest Contact Info) Description 05/20/2020 11:00 EDT - 05/20/2020 11:07 EDT Hospital Encounter [facility] Radiology Nuclear Medicine and PET - [address] [phone] Parkinsonism, unspecified Parkinsonism type (HCC-CMS) Discharge Disposition: Home or Self Care Social History Tobacco Use Types Packs/Day Years Used Date Smoking Tobacco: Every Day Cigarettes 1 25 Interpersonal Safety Answer Date Record ed Physically Hurt Never 10/05/2019 Verbally Threaten Not on file 10/05/2019 Sex and Gender Information Value Date Recorded Sex Assigned at Not on file Gender Identity Female 12/29/2019 9:52 EDT Sexual Orientation Not on file COVID-19 Exposure Response Date Recorded In the last month, have you been in contact with someone who was confirmed or suspected to have Coronavirus / COVID-19? No / Unsure 05/20/2020 11:03 EDT documented as of this encounter Medications at Time of Discharge Medication Sig Dispensed Refills Start Date End Date calcium carbonate (TUMS) 200 mg calcium (500 mg) tablet,chewable Take 2 Tablets by mouth 2 times daily. cholecalciferol (VITAMIN D3) 1,250 mcg (50,000 unit) capsule Take 1 Capsule by mouth once a week. cyanocobalamin 1,000 mcg tablet Take 1 Tablet by mouth daily. folic acid (FOLVITE) 1 mg tablet Take 1 Tablet by mouth daily. naloxone (NARCAN) 4 mg/actuation nasal spray 0.1 mL by nasal route as needed. omeprazole (PRILOSEC) 20 mg capsule Take 1 Capsule by mouth every morning. 12/17/2019 oxyCODONE-acetaminophen (PERCOCET) 10-325 mg per tablet Take 1 Tablet by mouth every 6 hours. pregabalin (LYRICA) 150 mg capsule every morning. 02/02/2020 pregabalin (LYRICA) 50 mg capsule 2 Capsules. In PM 02/02/2020 zolpidem (AMBIEN) 10 mg tablet Take 1 Tablet by mouth. Every other night ALPRAZolam (XANAX) 0.5 mg tablet Take 1 Tab by mouth once for 1 dose. Take 1 tablet ~1 hour prior to study, can repeat just prior to study as needed Daily Max: 1 mg 2 Tab 05/17/2020 07/06/2020 iodine strong (LUGOLS) 5 % solution Take 2 mls (100 mg iodine) orally 1 hour prior to exam. 1 Bottle 04/07/2020 05/26/2020 documented as of this encounter Discharge Disposition Disposition Code Departure Means Destination Home or Self Care documented in this encounter Plan of Treatment Upcoming Encounters Date Type Department Care Team (Late st Contact Info) Description 02/13/2024 13:00 EST Office Visit [facility] Neurology - S [address] [phone] Alta Walter MD [address] [place] [address], Level [address] [place] [phone] documented as of this encounter Procedures Procedure Name Priority Date/Time Associated Diagnosis Comments NM DATSCAN WITH SPECT/CT Routine 05/20/2020 15:56 EDT Parkinsonism, unspecified Parkinsonism type (HCC-CMS) documented in this encounter Results * NM DATSCAN WITH SPECT/CT (05/20/2020 15:56 EDT) Anatomical Region Laterality Modality Head Nuclear Medicine Impressions 05/20/2020 16:38 EDT Normal and symmetric uptake in the caudate and putamen bilaterally. I have personally reviewed the images and the above interpretation and agree with the findings. Narrative 05/20/2020 16:38 EDT Brain SPECT DATscan Signs & Symptoms: ?? Parkinsonism. Technique: Approximately 4 hours after the IV injection of 5mCi of I-123 Ioflupane, SPECT/CT images of the brain were obtained. ?? Findings: Uptake in the caudate and putamen is within normal limits and symmetric. No significant abnormality seen on the accompanying low-dose CT. Alta Walter MD IMG NM ORDERABLES documented in this encounter Visit Diagnoses Diagnosis Parkinsonism, unspecified Parkinsonism type (HCC-CMS) documented in this encounter Administered Medications Inactive Administered Medications - up to 3 most recent administrations Medication Order MAR Action Action Date Dose Rate Site ioflupane (I-123) (DATSCAN) injection 5 millicurie 5 millicurie, radiopharm IV, NOW X1, 1 dose, On Lisa 05/20/20 at 1200, Routine, Imaging Protocol Orders Given 05/20/2020 11:30 EDT 5.1 millicuries documented in this encounter Orders Medications Ordered That Diego ht Not Have Been Administered Count Last Ordered Date First Ordered Date ioflupane (I-123) (DATSCAN) injection 5 millicurie 1 05/20/2020 documented in this encounter Care Teams Hotbed Operator Relationship Specialty Start Date End Date Yumiko Tavarez MD [address] [place] [address] PCP - General 12/29/19 documented as of this encounter
--- OUTSIDE RECORDS SUMMARY | 2023-09-21 17:02 | XMS_ITS | Encounter Summary ---
Author Organization [facility] Address [address] [place] [address] Care Team Providers Care Help Desk Manager Name Role Phone Yumiko Tavarez MD Primary Care Provider [phone] Reason for Visit * Reason Onset Date Comments Appointment Related 04/06/2020 Encounter Details Date Type Department Care Team (Late st Contact Info) Description 04/06/2020 Telephone [facility] Neurology - S [address] [phone] Alta Walter MD [address] [place] [address] Level [address] [place] [phone] Appointment Related Social History Tobacco Use Types [...] 11:03 EDT documented as of this encounter Miscellaneous Notes * Telephone Encounter - Kena Marshall - 04/06/2020 1054 EST Called and rescheduled 05/19/20 FUR/zoom appt with Dr Thakkar to 05/26/20 at 10:30am 3 mo FUR/zoom Meeting ID: [id number] Password: [id number] documented in this encounter Plan of Treatment Upcoming Encounters Date Type Department Care Team (Late st Contact Info) Description 02/13/2024 13:00 EST Office Visit [facility] Neurology - [address] [phone] Alta Walter MD [address] [place] [address] [address] [place] [address] documented as of this encounter Visit Diagnoses Not on filedocumented in this encounter Care Teams Help Desk Manager Relationship Specialty Start Date End Date Yumiko Tavarez MD [address] [place] [phone] PCP - General 12/29/19 documented as of this encounter
--- OUTSIDE RECORDS SUMMARY | 2023-09-21 17:02 | XMS_ITS | Encounter Summary ---
Author Organization [facility] Address [address] [place] [address] Care Team Providers Care Automobile Seat Cover Installer Name Role Phone Yumiko Tavarez MD Primary Care Provider [phone] Reason for Visit * Reason Onset Date Comments Prior Auth, Medication 08/10/2020 Ingrezza 40 & 80mg Prior Auth, Medication 08/10/2020 Austedo 4 8mg/day Encounter Details Date Type Department Care Team (Late st Contact Info) Description 08/10/2020 Telephone [facility] Neurology - [address] [place] [address] [place] [phone] Alta Walter MD [address] [place] [address], Level 2 [place] [address] Prior Auth, Medication (Ingrezza 40 & 80mg); Prior Auth, Medication (Austedo 48mg/day) Social History Tobacco Use Types Packs/Day Years [...] Dispensed Refills Start Date End Da te deutetrabenazine (AUSTEDO) 6 mg tablet Take 6 mg by mouth daily for 7 days, THEN 6 mg 2 times daily for 21 days. 49 Tablet 08/26/2020 09/10/2020 documented in this encounter Miscellaneous Notes * Telephone Encounter - Soo Wagnerkarthik - 08/10/2020 0955 EDT Prior Authorization Approval Medication: Austedo 6mg Approved: 08/19/20 through 08/18/21 Authorization Number: [id number] Required Pharmacy: [facility] Preferred Pharmacy: [facility] Prior Authorization Submission Process Medication: Austedo 6mg Insurance: RxBenefits Date PA Request Received: 08/11/20 PA Submission Date: 08/18/20 EOC ID: [id number] Submitted by: Gerry Prior Authorization Approval Medication: Austedo 12mg Approved: 08/13/20 through 08/12/21 Authorization Number: [id number] Required Pharmacy: [facility] Preferred Pharmacy: [facility] Prior Authorization Submission Process Medication: Austedo 12mg - 48mg/day Insurance: MAYELA - RxBenefits Date PA Request Received: 08/11/20 PA Submission Date: 08/11/20 EOC ID: [id number] Submitted by: Gerry documented in this encounter Plan of Treatment Upcoming Encounters Date Type Department Care Team (Late st Contact Info) Description 02/13/2024 13:00 EST Office Visit [facility] Neurology - S [address] [phone] Alta Walter MD [address] [place] [address] 2 [place] [phone] documented as of this encounter Visit Diagnoses Not on filedocumented in this encounter Discontinued Medications Medication Sig Discontinue Reason Start Date End Da te tetrabenazine 25 mg tablet tablet Take 1.5 tablets 3 times daily for 2 weeks, then increase to 2 tablets three times daily Alternate therapy 07/27/2020 08/26/2020 documented as of this encounter Care Teams Automobile Seat Cover Installer Relationship Specialty Start Date End Date Yumiko Tavarez MD [address] [place] [phone] PCP - General 12/29/19 documented as of this encounter
--- OUTSIDE RECORDS SUMMARY | 2023-09-21 17:02 | XMS_ITS | Encounter Summary ---
Author Organization [facility] Address [address] [place] [address] Care Team Providers Care Rubber Splicer Name Role Phone Yumiko Tavarez MD Primary Care Provider [phone] Encounter Details Date Type Department Care Team (Late st Contact Info) Description 04/07/2020 Orders Only [facility] Radiology - [address] [phone] Sarkis Hearn MD [address] [place] [address] 1 [place] [phone] Social History Tobacco Use Types Packs/Day Years [...] Office Visit [facility] Neurology - S [place] [address] [place] [phone] Alta Walter MD [address] [place] [address] 2 [place] [phone] documented as of this encounter Visit Diagnoses Not on filedocumented in this encounter Care Teams Rubber Splicer Relationship Specialty Start Date End Date Yumiko Tavarez MD [address] [place] [phone] PCP - General 12/29/19 documented as of this encounter
--- OUTSIDE RECORDS SUMMARY | 2023-09-21 17:02 | XMS_ITS | Encounter Summary ---
Author Organization [facility] Address [address] [place] [address] Care Team Providers Care Oceanic Sciences Professor Name Role Phone Yumiko Tavarez MD Primary Care Provider [phone] Reason for Visit * Reason Comments Follow-up Telemedicine Video Visit Encounter Details Date Type Department Care Team ([facility] st Contact Info) Description 07/22/2020 10:00 EDT Telemedicine [facility] Neurology - S [address] [phone] lAta Walter MD [address] [place] [address] Level 2 [place] [phone] Tardive dyskinesia (Primary Dx); Tremor; Peripheral polyneuropathy Social History Tobacco Use Types Packs/Day Years [...] Progress Notes * Alta Thakkar MD - 07/22/2020 1000 EDT Images from the original note were not included. Type of visit: Follow-up Telehealth visit Clinician Requesting Consultation: Yumiko Tavarez MD [address] [place] [phone] Fax: Primary Strip Roller: Yumiko Tavarez [address] [place] [address] ASSESSMENT & PLAN / RECOMMENDATIONS 1. Tardive dyskinesia 2. Tremor 3. Peripheral polyneuropathy Miguelina Morales is a 55 y.o. woman who returns to the [facility] Movement Disorders clinic for evaluation and management of involuntary movements, likely tardive dyskinesia given exposure in the past to various neuroleptics and SSRIs. She reports hyperkinetic movements since at least 2011, which started distally in the toes and progressed proximally, including some mild orobuccolingual movements. Interestingly, she has been on two separate medications that would have treated thesesymptoms (amantadine, tetrabenazine) though neither controlled her symptoms at the prescribed dosages. We have restarted a titration of tetrabenazine up to 150mg daily to see if this will help with her symptoms - she is current on 25mg TID for the past week. Overall, she has not appreciated any benefits or side effects on the medication, though things seem somewhat less active by my eye on limited video exam. She continues to have fairly persistent movements around the mouth/tongue consistent with TD. She is amenable to continuing the titration of tetrabenazine, though understandably frustrated withthe slow progress (including the time it took to get the medication approved). Should we reach a pre-determined maximum dose without substantial benefit, I would plan to discontinue this medication and start a different VMAT2 inhibitor. I was able to review both the previous DatScan ([facility]) in comparison to the more recent one ([facility]). There is a clear difference that I cannot explain. If she truly had pre-synaptic dopaminergic dysfunction, I would not expect resolution on subsequent imaging. She denies taking any medications atthe time of the previous exam that would contribute to a false positive. I believe that her examination is consistent at this time with a normal study, however we will continue to monitor over time. # Continue with titration of tetrabenazine -- currently at 25mg three times daily for the next week; if tolerating and symptoms persist, will plan to increase to 37.5mg TID for two weeks, then 50mg TID thereafter (max dose 150mg daily) # Continue to [...] Telehealth): She started taking the tetrabenazine a month ago, and now up to 25mg TID. She [...] difficulty - has dysphagia, referral sent to [facility] Current Medications: Outpatient Medications Marked as Taking [...] naloxone (NARCAN) 4 mg/actuation nasal spray 1 [place] by nasal route as needed. ??? 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 There were mild orolingual movements, writhing movements of the shoulders, and fine dyskineticmovements of the fingers with arms extended. No clear tremor initially, though when I asked specifically if the right hand tremor was still present, she did demonstrate some more rhythmic flexion/exte nsion movements are the right wrist. This seems [...] following activities: Personal review of available imaging Patient/wound care center consultant education Scanned health information available from the referring and/or primary provider(s) Review of the pertinent information in the electronic health record Care plan formulation Supportive counseling Thank you for the opportunity to participate in this patient's care. If there are any questions, please contact the office at [phone]. Alta Thakkar MD Attending Physician, Movement Disorders Department of Neurology documented in this encounter Plan of Treatment Upcoming Encounters Date Type Department Care Team (Late st Contact Info) Description 02/13/2024 13:00 EST Office Visit [facility] - [address] [address] Alta Walter MD [address] [place] [address] 2 [place] [address] documented as of this encounter Visit Diagnoses Diagnosis Tardive dyskinesia- Primary Subacute dyskinesia due to drugs Tremor Abnormal involuntary movements Peripheral polyneuropathy Unspecified hereditary and idiopathic peripheral neuropathy documented in this encounter Care Teams Oceanic Sciences Professor Relationship Specialty Start Date End Date Yumiko Tavarez MD [address] [place] [phone] PCP - General 12/29/19 documented as of this encounter
--- OUTSIDE RECORDS SUMMARY | 2023-09-21 17:02 | XMS_ITS | Encounter Summary ---
Author Organization [facility] Address [address] [place] [address] Care Team Providers Care Fire Loss Prevention Engineer Name Role Phone Yumiko Tavarez MD Primary Care Provider [phone] Reason for Visit * Reason Onset Date Comments Prior Auth, Medication 06/02/2020 Encounter Details Date Type Department Care Team (Late st Contact Info) Description 06/02/2020 Telephone [facility] Neurology - S [address] [phone] Alta Walter MD [address] [place] [address], Level 2 [place] [address] Prior Auth, Medication Social History [...] 11:03 EDT documented as of this encounter Ordered Prescriptions Prescription Sig Dispensed Refills Start Date End Da te tetrabenazine 12.5 mg tablet Take 1 Tab by mouth 3 times daily. 90 Tab 2 06/16/2020 07/21/2020 documented in this encounter Miscellaneous Notes * Addendum Note - Alta Del Valle MD - 06/16/2020 1551 EDTAddended by: ALTA DEL VALLE on: 06/16/2020 15:51 Modules accepted: Orders * Addendum Note - Tiburcio Glaser RN - 06/15/2020 1413 EDTAddended by: TIBURCIO GLASER on: 06/15/2020 14:13 Modules accepted: Orders * Telephone Encounter - Tiburcio Glaser RN - 06/15/2020 1412 EDT Requested Prescriptions Pending Prescriptions Disp Refills ??? tetrabenazine 12.5 mg tablet 90 Tab 2 Sig: Take 1 Tab by mouth 3 times daily. New prescription pended to be sent to [facility] per pt request for insurance purposes. Pended to provider * Telephone Encounter - Pratima Mckeon - 06/15/2020 1330 EDT Miguelina is calling because the prescription needs to be sent to [facility] - phone [phone]. [facility] will not cover it * Telephone Encounter - Tiburcio Glaser RN - 06/14/2020 1018 EDT Left message for pt to inform her that the PA for the Tetrabenazine was approved and [facility] should be able to fill it now. Instructed her to call the office with questions or concerns. * Telephone Encounter - Cristel Mobley - 06/07/2020 1358 EDT Miguelina calling to check status of prior auth for her medication. Advised it was submitted to insurance on 06/02/20 and waiting to hear back. * Telephone Encounter - Za Wolff - 06/02/2020 1011 EDT Prior Authorization Approval Medication: Tetrabenazine 12.5mg tablet tid Approved: through 06/10/21 Authorization Number: [id number] Benefits Information or Other Notes: Required Pharmacy: [facility] Preferred Pharmacy: 06/11 - called insurance to check status of PA. Was told PA team is still behind - should have a decision Sunday or Sunday. I requested that this be expedited 06/10 - called insurance to check status of PA. Was told PA team is behind and we should have an answer in 24 hours 06/08 - called insurance to check status of PA. Still pending - will have decision by EOD 06/09 Prior Authorization Submission Process Medication: Tetrebenazine 25mg tid Insurance: RX Benefits Date PA Request Received: 06/01/20 PA Submission Date: 06/02/20 [facility] [place]: n/a submitted via fax Submitted by: Za Phone: [phone]. documented in this encounter Plan of Treatment Upcoming Encounters Date Type Department Care Team (Late st Contact Info) Description 02/13/2024 13:00 EST Office Visit [facility] Neurology - S [address] [phone] Alta Walter MD [address] [place] [address] 2 [place] [address] documented as of this encounter Visit Diagnoses Not on filedocumented in this encounter Discontinued Medications Medication Sig Discontinue Reason Start Date End Da te tetrabenazine 12.5 mg tablet Take 1 Tab by mouth 3 times daily. Reorder 05/31/2020 06/15/2020 documented as of this encounter Care Teams Fire Loss Prevention Engineer Relationship Specialty Start Date End Date Yumiko Tavarez MD [address] [place] [address] PCP - General 12/29/19 documented as of this encounter
--- OUTSIDE RECORDS SUMMARY | 2023-09-21 17:02 | XMS_ITS | Encounter Summary ---
Author Organization [facility] Address [address] [place] [address] Care Team Providers Care Host/Hostess Name Role Phone Yumiko Tavarez MD Primary Care Provider [phone] Reason for Visit * Reason Onset Date Comments Appointment Related 12/23/2020 Encounter Details Date Type Department Care Team (Late st Contact Info) Description 12/23/2020 Telephone [facility] Neurology - S [address] [phone] Alta Walter MD [address] [place] [address] Level 2 [place] [phone] Appointment Related Social History Tobacco Use Types [...] * Telephone Encounter - Kena Marshall - 12/23/2020 0931 EDT Spoke to patient and scheduled FUR /televideo with Dr Thakkar for 01/06/21 at 10:30am. Canceled 01/24/21 documented in this encounter Plan of Treatment Upcoming Encounters Date Type Department Care Team (Late st Contact Info) Description 02/13/2024 13:00 EST Office Visit [facility] Neurology - S [place] [address] [place] [address] Alta Walter MD [address] [place] [address], Level [address] [place] [address] documented as of this encounter Visit Diagnoses Not on filedocumented in this encounter Care Teams Host/Hostess Relationship Specialty Start Date End Date Yumiko Tavarez MD [address] [place] [address] PCP - General 12/29/19 documented as of this encounter
--- OUTSIDE RECORDS SUMMARY | 2023-09-21 17:02 | XMS_ITS | Encounter Summary ---
Author Organization [facility] Address [address] [place] [address] Care Team Providers Care Dredge Captain Name Role Phone Yumiko Tavarez MD Primary Care Provider [phone] Reason for Visit * Reason Onset Date Comments Medication Management 11/18/2020 Encounter Details Date Type Department Care Team (Late st Contact Info) Description 11/18/2020 Telephone [facility] Neurology - S [address] [phone] Alta Waletr MD [address] [place] [address] Level 2 [place] [address] Medication Management Social History Tobacco Use Types [...] * Telephone Encounter - Meme Lemus - 11/18/2020 1847 EDT Spoke to Miguelina she states the new dose of RX deutetrabenazine (AUSTEDO) 6 mg tablet Shows n difference for her, but she does not have any side affects. Would like to know if her dosage should be increased. Requesting a call back. documented in this encounter Plan of Treatment Upcoming Encounters Date Type Department Care Team (Late st Contact Info) Description 02/13/2024 13:00 EST Office Visit [facility] Neurology - [address] [address] Alta Walter MD [address] [place] [address], Level 2 [place] [phone] documented as of this encounter Visit Diagnoses Not on filedocumented in this encounter Care Teams Dredge Captain Relationship Specialty Start Date End Date Yumiko Tavarez MD [address] [place] [address] PCP - General 12/29/19 documented as of this encounter
--- OUTSIDE RECORDS SUMMARY | 2023-09-21 17:02 | XMS_ITS | Encounter Summary ---
Author Organization [facility] Address [address] [place] [address] Care Team Providers Care Kennel Aide Name Role Phone Yumiko Tavarez MD Primary Care Provider [phone] Encounter Details Date Type Department Care Team (Late st Contact Info) Description 03/28/2021 Specialty Pharmacy [facility] [address] [place], [place] [phone] Blanca Vaughn, [facility] [address] [facility] [address] [place] [phone] Social History Tobacco Use Types Packs/Day Years [...] Office Visit [facility] Neurology - S [place] 1 [place], [place] [address] Alta Walter MD [address] [place] [address], Level [address] [place] [phone] documented as of this encounter Visit Diagnoses Not on filedocumented in this encounter Care Teams Kennel Aide Relationship Specialty Start Date End Date Yumiko Tavarez MD [address] [place] [address] PCP - General 12/29/19 documented as of this encounter
--- OUTSIDE RECORDS SUMMARY | 2023-09-21 17:02 | XMS_ITS | Encounter Summary ---
Author Organization [facility] Address [address] [place] [address] Care Team Providers Care Pharmacovigilance Scientist Name Role Phone Yumiko Tavarez MD Primary Care Provider [phone] Reason for Visit * Reason Comments Other Encounter Details Date Type Department Care Team (Late st Contact Info) Description 09/03/2020 Refill [facility] Neurology - S [address] [phone] Alta Walter MD [address] [place] [phone] Other Social History Tobacco Use Types Packs/Day [...] 02/13/2024 13:00 EST Office Visit [facility] Neurology S [address] [phone] Alta Walter MD [address] [place] [phone] documented as of this encounter Visit Diagnoses Not on filedocumented in this encounter Care Teams Pharmacovigilance Scientist Relationship Specialty Start Date End Date Yumiko Tavarez MD [address] [place] [address] PCP - General 12/29/19 documented as of this encounter
--- OUTSIDE RECORDS SUMMARY | 2023-09-21 17:02 | XMS_ITS | Encounter Summary ---
Author Organization [facility] Address [address] [place] [address] Care Team Providers Care Abstract Checker Name Role Phone Yumiko Tavarez MD Primary Care Provider [phone] Reason for Visit * Reason Onset Date Comments Appointment Related 08/20/2020 Encounter Details Date Type Department Care Team (Late st Contact Info) Description 08/20/2020 Telephone [facility] Neurology - S [address] [phone] Alta Walter MD [address] [place] [address] Level [address] [place] [phone] Appointment Related Social History Tobacco Use Types [...] * Telephone Encounter - Kena Marshall - 08/20/2020 1350 EDT Spoke with patient. Scheduled 4 mo FUR in person with Dr. Thakkar for 11/22/20 at 2:45 LS 07/22/20 documented in this encounter Plan of Treatment Upcoming Encounters Date Type Department Care Team (Late st Contact Info) Description 02/13/2024 13:00 EST Office Visit [facility] Neurology - S [place] [address] [place] [address] Alta Walter MD [address] [place] [address], Level [address] [place] [address] documented as of this encounter Visit Diagnoses Not on filedocumented in this encounter Care Teams Abstract Checker Relationship Specialty Start Date End Date Yumiko Tavarez MD [address] [place] [address] PCP - General 12/29/19 documented as of this encounter
--- OUTSIDE RECORDS SUMMARY | 2023-09-21 17:02 | XMS_ITS | Encounter Summary ---
Author Organization [facility] Address [address] [place] [address] Care Team Providers Care Editor Name Role Phone Unknown, Provider Primary Care Provider Yumiko Tavarez MD Primary Care Provider [phone] Reason for Visit * Reason Onset Date Comments New Patient Visit 12/18/2019 Encounter Details Date Type Department Care Team (Late st Contact Info) Description 12/18/2019 Telephone [facility] Neurology - [address] [phone] Alta Walter MD [address] [place] [address] Level 2 [place] [address] New Patient Visit Social History Tobacco Use Types Packs/Day Years Used Date Smoking Tobacco: Never Assessed Interpersonal Safety Answer Date Record ed Physically [...] * Telephone Encounter - Geraldo Kwon - 12/25/2019 1339 EDT Outgoing call to clarify if pt can do video. Pt accepts video NPV with Ariane scheduled for 01/01/20 at 9am. Contacts confirmed and zoom invite sent. * Telephone Encounter - Pratima Mckeon - 12/18/2019 1221 EDT Miguelina called back to schedule but does not want to do a TVD for her first visit. She would prefer and in person. She has removed the restrictions from her phone so it won't go to voice mail when you call * Telephone Encounter - Geraldo Kwon - 12/18/2019 [...] Description 02/13/2024 13:00 EST Office Visit [facility] Neurology - S [address] [phone] Alta Walter MD [address] [place] [address], Level 2 [place] [phone] documented as of this encounter Visit Diagnoses Not on filedocumented in this encounter Care Teams Editor Relationship Specialty Start Date End Date Unknown, Provider, PCP - General 08/05/08 12/28/19 Yumiko Tavarez MD [address] [place] [address] PCP - General 12/29/19 documented as of this encounter
--- OUTSIDE RECORDS SUMMARY | 2023-09-21 17:02 | XMS_ITS | Encounter Summary ---
Author Organization [facility] Address [address] [place] [address] Care Team Providers Care Senior Biostatistician Name Role Phone Unknown, Provider Primary Care Provider Yumiko Tavarez MD Primary Care Provider [phone] Reason for Visit * Reason Onset Date Comments Referral Request 06/19/2019 Encounter Details Date Type Department Care Team (Late st Contact Info) Description 06/19/2019 Telephone [facility] Neurology - [address] [address] Unknown, Provider, Referral Request Social History Tobacco Use Types Packs/Day Years [...] * Telephone Encounter - Kena Marshall - 06/20/2019 1533 EDT Dillon from [facility] calling to let Johana know that the Pt would like to keep referral with [facility] for second opinion and will resend updated referral in September when patient sees them for appt. * Telephone Encounter - Civil Marlene - 06/20/2019 1140 EDT Dillon calls regarding her phone call from yesterday asking for Johana. I will forward to Johana :) * Telephone Encounter - Johana Govea - 06/19/2019 1559 EDT Calling referring office ([phone]) to inform them of the doctor's opinion regarding patient's referral (listed in message below). Spoke with Magali in the office. She understands, I recommended either informing the patient we'llneed to wait until she can be seen onsite (greatly delaying referral) or we can close it and she can touch base with her previous neurologist. Magali said she will update the patient and will let us know to either delay or close the referral. From Dr. Barry - I would tell the referring office that a telemedicine second movement disorders /third neurologistopinion for a patient who has already been under movement disorders specialty care will be of limited value and ideally served with follow up care with [facility] until we can get her on site I can see the patient with the caveat that the recommendations may be limited documented in this encounter Plan of Treatment Upcoming Encounters Date Type Department Care Team (Late st Contact Info) Description 02/13/2024 13:00 EST Office Visit [facility] Neurology - S [place] [address] [place], [place] [address] Alta Walter MD [address] [place] [address] [address] [place] [address] documented as of this encounter Visit Diagnoses Not on filedocumented in this encounter Care Teams Senior Biostatistician Relationship Specialty Start Date End Date Unknown, Provider, PCP - General 08/05/08 12/28/19 Yumiko Tavarez MD [address] [place] [address] PCP - General 12/29/19 documented as of this encounter
--- OUTSIDE RECORDS SUMMARY | 2023-09-21 17:02 | XMS_ITS | Encounter Summary ---
Author Organization [facility] Address [address] [place] [address] Care Team Providers Care Car Ferrier Name Role Phone Unknown, Provider Primary Care Provider [phone] Encounter Details Date Type Department Care Team (Late st Contact Info) Description 03/08/2016 Results Only [facility] [phone] Salvatore Rosario MD [address] [place] [address] [address] [place], [place] [address] Social History Tobacco Use Types Packs/Day Years Used Date Smoking Tobacco: Never Assessed Sex and Gender Information Value Date Recorded Sex Assigned at Not on file Gender Identity Female 12/29/2019 9:52 EDT Sexual Orientation Not on file documented as of this encounter Plan of Treatment Upcoming Encounters Date Type Department Care Team (Late st Contact Info) Description 02/13/2024 13:00 EST Office Visit [facility] Neurology - S [address] [address] Alta Walter MD [address] [place] [address] Level 2 [place] [address] documented as of this encounter Procedures Procedure Name Priority Date/Time Associated Diagnosis Comments SURGICAL PATHOLOGY Routine 03/08/2016 20 :45 EST documented in this encounter Results * SURGICAL PATHOLOGY (03/08/2016 20:45 EST) Pathology Report: SURGICAL PATHOLOGY REPORT Reports generated via electronic interface contain original data; however they are lacking the format of the original report. Caution should be taken when reading/interpret ing unformatted reports. Name: ? CYDNEY ALMAZAN ? Accession #: ? [id number] ? : ? 1965 (Age: 51) ??F ? Collect Date: ? 03/08/2016 ? Location: ? [facility] ? Receive Date: ? 03/08/2016 ? Provider: SALVATORE ROSARIO MD Copy to: ? Final Pathologic Diagnosis: GALLBLADDER, CHOLECYSTECTOMY: - ??Chronic cholecystitis. - ??Cholelithiasis. Document reviewed and electronically signed by: AMARI BLANTON MD Report ??Date: 03/13/2016 12:21 By the signature above, the attending physician certifies that he/she has personally conducted a gross and/or microscopic examination [...] cm in length x 0.2 cm in diameter). ? The serosa is painting-purple and smooth. The mucosa is dark green, velvety, and the wall is 0.2 cm in thickness. The cystic duct lumen is patent. The cystic duct margin is inked blue. Several black to green smooth rhomboid choleliths are present ranging from 0.6 to 1.5 cm in greatest dimension. ? Two in home sales representative sections and the inked en face cystic duct margin are submitted in 1. Dr. Corona 03/09/2016 6:00 PM End of Report [facility] 03/08/2016 20:4 5 EST 03/08/2016 20:45 EST Salvatore Rosario MD PATHOLOGY ORDERElaine TONG Performing Organization Address City/State/[facility] Co de Phone Number [facility] [address] [place] [address] documented in this encounter Visit Diagnoses Not on filedocumented in this encounter Care Teams Car Ferrier Relationship Specialty Start Date End Date Unknown, Provider, PCP - General 08/05/08 12/28/19 documented as of this encounter
--- OUTSIDE RECORDS SUMMARY | 2023-09-21 17:02 | XMS_ITS | Encounter Summary ---
Author Organization [facility] [place] Address [address] [place] [address] Care Team Providers Care Analytics Senior Manager Name Role Phone Yumiko Tavarez MD Primary Care Provider [phone] Reason for Referral * Consult (Routine/Next Available) - Closed Specialty Diagnoses / Procedures Referred By Contpayam t Referred To Contact Neurology Diagnoses Tardive dyskinesia Functional neurological symptom disorder with abnormal movement Anxiety Alta Walter MD [address] [place] [phone] Cat Dorantes MD [address] [place] [phone] Referral ID Status Reason Start Date Expiration Date V isits Requested Visits Authorized [id number] Closed Specialty Services Required 05/26/2020 1 1 Question Answer Reason for Request: Patient with history of anxiety, depression, PTSD who 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 Reason for Visit * Reason Comments Follow-up Encounter Details Date Type Department Care Team ([facility] st Contact Info) Description 05/26/2020 10:30 EDT Telemedicine [facility] - S [address] [phone] Alta Walter MD [address] [place] [phone] Tardive dyskinesia (Primary Dx); Functional neurological symptom disorder with abnormal movement; Anxiety Social History Tobacco Use Types Packs/Day Years [...] mouth 3 times daily. 90 Tab 3 05/26/2020 05/31/2020 documented in this encounter Progress Notes * Alta Thakkar MD - 05/26/2020 1030 EDT Images from the original note were not included. Type of visit: Follow-up visit Clinician Requesting Consultation: No referring provider defined for this encounter. Phone: N/A Fax: Primary Nutritional Services Host: Yumiko Tavarez [address] [place] [phone] ASSESSMENT & PLAN / RECOMMENDATIONS 1. Tardive dyskinesia 2. Functional neurological symptom disorder with abnormal movement 3. Anxiety Miguelina Morales is a 55 y.o. woman who returns to the [facility] clinic for evaluation and management of involuntary movements, likely tardive dyskinesia. She reportshyperkinetic movements since at least 2011, which started [...] of symptoms may be related to a functionaloverlay, specifically because of her history of PTSD and the fact that she has gone for so many years without a clear neurological diagnosis. I suspect that this may be contributing to her worsening symptoms over time, as I would not expect tardive dyskinesia to necessarily worsen if the causative medications have been discontinued. She was amenable to a one-time visit with Dr. Cat Dorantes, apsychiatrist that commonly works with our movement disorder [...] on how she responds. She will monitor for side effects: Worsening mood, parkinsonism, etc # Consider valbenazine if tetrabenazine infective or not approved # Referral to Dr. Dorantes to discuss symptoms, including anxiety and PTSD Return to clinic: 2 months (Telehealth) SUBJECTIVE Reason for consultation/ Chief complaint: Tardive dyskinesia History of Presenting Illness (HPI): Miguelina Morales is a 55 y.o. woman who was referred to the [facility] Disorders clinic for [...] tried carbidopa-levodopa again, but same thing happened. Only thing that makes [...] I believe from different psychiatry notes that she still has in her possession. These include: Lexapro [...] she feels like tardive dyskinesia does not explain this. The feet frequently move as well. Previous [...] difficulty - has dysphagia, referral sent to [facility] Current Medications: Outpatient Medications Marked [...] naloxone (NARCAN) 4 mg/actuation nasal spray 1 [place] by nasal route as needed. ??? 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 Directed movements- like finger tapping and hand opening/closing - [...] following activities: Personal review of available imaging Patient/post acute care nurse education Scanned health information available from the referring and/or primary provider(s) Review of the pertinent information in the electronic health record Care plan formulation Supportive counseling Thank you for the opportunity to participate in this patient's care. If there are any questions, please contact the office at [phone]. Alta Thakkar MD Attending Physician, Movement Disorders Department of Neurology documented in this encounter Plan of Treatment Upcoming Encounters Date Type Department Care Team (Late st Contact Info) Description 02/13/2024 13:00 EST Office Visit [facility] - S [address] [phone] Alta Walter MD [address] [place] [address] [address] [place] [phone] Scheduled Referrals Name Type Priority Associated Diagnoses Orde r Schedule AMB CONS/FOLLOW UP PSYCH (ADULT PC/FAM MED/OB/NEURO OR EXTERNAL REF) Outpatient Referral Routine Tardive dyskinesia Functional neurological symptom disorder with abnormal movement Anxiety Ordered: 05/26/2020 documented as of this encounter Visit Diagnoses Diagnosis Tardive dyskinesia- Primary Subacute dyskinesia due to drugs Functional neurological symptom disorder with abnormal movement Conversion disorder Anxiety Anxiety state, unspecified documented in this encounter Discontinued Medications Medication Sig Discontinue Reason Start Date End Da te iodine strong (LUGOLS) 5 % solution Take 2 mls (100 mg iodine) orally 1 hour prior to exam. Therapy completed 04/07/2020 05/26/2020 documented as of this encounter Care Teams Analytics Senior Manager Relationship Specialty Start Date End Date Yumiko Tavarez MD [address] [place] [phone] PCP - General 12/29/19 documented as of this encounter
--- OUTSIDE RECORDS SUMMARY | 2023-09-21 17:02 | XMS_ITS | Encounter Summary ---
Author Organization [facility] Address [address] [place] [address] Care Team Providers Care Television Cable Installer Name Role Phone Yumiko Tavarez MD Primary Care Provider [phone] Reason for Visit * Reason Onset Date Comments Appointment Related 11/18/2020 Encounter Details Date Type Department Care Team (Late st Contact Info) Description 11/18/2020 Telephone [facility] Neurology - S [address] [phone] Alta Walter MD [address] [place] [address] [address] [place] [phone] Appointment Related Social History Tobacco Use Types [...] Telephone Encounter - Meme Lemus - 11/18/2020 1376 EDT Spoke to Miguelina, cancelled her 4 MO FUR On-SITE appt with Dr. Thakkar on Sunday11/22/2020 at 2:45 PM and rescheduled it to Sunday01/24/2021 at 4:15 PM. documented in this encounter Plan of Treatment Upcoming Encounters Date Type Department Care Team (Late st Contact Info) Description 02/13/2024 13:00 EST Office Visit [facility] Neurology - [address] [address] Alta Walter MD [address] [place] [address], [address] [place] [address] documented as of this encounter Visit Diagnoses Not on filedocumented in this encounter Care Teams Television Cable Installer Relationship Specialty Start Date End Date Yumiko Tavarez MD [address] [place] [phone] PCP - General 12/29/19 documented as of this encounter
--- OUTSIDE RECORDS SUMMARY | 2023-09-21 17:02 | XMS_ITS | Encounter Summary ---
Author Organization [facility] Address [address] [place] [address] Care Team Providers Care Claim Investigator Name Role Phone Yumiko Tavarez MD Primary Care Provider [phone] Reason for Visit * Reason Onset Date Comments Results 05/21/2020 Encounter Details Date Type Department Care Team (Late st Contact Info) Description 05/21/2020 Telephone [facility] Neurology - S [address] [phone] Alta Walter MD [address] [place] [address] [address] [place] [phone] Results Social History Tobacco Use Types Packs/Day Years [...] encounter Miscellaneous Notes * Telephone Encounter - Sunni Ivey RN - 05/21/2020 6672 EDT Miguelina sent a detailed [employer] message to get the Tyrell scan results. Sent to Dr. Thakkar to review and interpret. * Telephone Encounter - Ghazala Bowen - 05/21/2020 1406 EDT Miguelina called requesting for a call back to discuss results from DATscan. Contact patient to discuss. documented in this encounter Plan of Treatment Upcoming Encounters Date Type Department Care Team (Late st Contact Info) Description 02/13/2024 13:00 EST Office Visit [facility] Neurology - S [place] [address] [place] [phone] Alta Walter MD [address] [place] [address], [address] [place] [phone] documented as of this encounter Visit Diagnoses Not on filedocumented in this encounter Care Teams Claim Investigator Relationship Specialty Start Date End Date Yumiko Tavarez MD [address] [place] [address] PCP - General 12/29/19 documented as of this encounter
--- OUTSIDE RECORDS SUMMARY | 2023-09-21 17:02 | XMS_ITS | Encounter Summary ---
Author Organization [facility] Address [address] [place] [address] Care Team Providers Care Funeral Service Licensee Name Role Phone Yumiko Tavarez MD Primary Care Provider [phone] Reason for Visit * Reason Onset Date Comments Appointment Related 01/30/2020 Encounter Details Date Type Department Care Team (Late st Contact Info) Description 01/30/2020 Telephone [facility] Neurology - [address] [phone] Alta Walter MD [address] [place] [address] [address] [place] [address] Appointment Related Social History Tobacco Use Types [...] * Telephone Encounter - Geraldo Kwon - 02/13/2020 1110 EST This appt has been changed at provider request, to 02/23/20 at 1:15Pm onsite for NPV. Pt accepts this change and has arrival and visitor instructions. * Telephone Encounter - Geraldo Kwon - 02/09/2020 1422 EST Pt accepts onsite FUR per Dr. Thakkar, scheduled for 02/16/20 at 2:15pm. Pt has location and arrival and visitor policies. If pt calls back to reschedule please schedule pt at next available onsite FUR30. Leave restrictions on. * Telephone Encounter - Geraldo Kwon - 01/30/2020 1634 EST Outgoing call to schedule pt for onsite FUR on Sunday02/01/21 at next available opening. Pt voice mail is not set up yet, no message could be left. No Zane Prephart access. documented in this encounter Plan of Treatment Upcoming Encounters Date Type Department Care Team (Late st Contact Info) Description 02/13/2024 13:00 EST Office Visit [facility] Neurology - S [address] [address] Alta Walter MD [address] [place] [address], [address] [place] [address] documented as of this encounter Visit Diagnoses Not on filedocumented in this encounter Care Teams Funeral Service Licensee Relationship Specialty Start Date End Date Yumiko Tavarez MD [address] [place] [address] PCP - General 12/29/19 documented as of this encounter
--- OUTSIDE RECORDS SUMMARY | 2023-09-21 17:02 | XMS_ITS | Encounter Summary ---
Author Organization [facility] Address [address] [place] [address] Care Team Providers Care Rn Pacu Name Role Phone Yumiko Tavarez MD Primary Care Provider [phone] Reason for Visit * Reason Onset Date Comments Appointment Related 06/09/2020 Encounter Details Date Type Department Care Team (Late st Contact Info) Description 06/09/2020 Telephone [facility] Neurology - S [address] [phone] Cat Dorantes MD [address] [place] [address] [address] [place] [phone] Appointment Related Social History Tobacco Use Types [...] encounter Miscellaneous Notes * Telephone Encounter - Ghazala Bowen - 06/18/2020 1626 EDT Patient called and rescheduled NPV TVD extended with Dr Dorantes to Alejandra 07/06/20 at 1030. [place]: [phone] Email:[email or web address] Meeting ID: [id number] Password: [email or web address] * Telephone Encounter - Meme Lemus - 06/15/2020 1551 EDT Outreached Miguelina, rescheduled the cancelled appt from 06/15/2020 at 8:[address] Dorantes. New NPV TVD EXT appt is on Sunday06/28/2020 at 9:[address] Dorantes [place]: [phone] Email:[email or web address] Meeting ID: [id number] Password: [id number] * Telephone Encounter - Monae Chavez - 06/15/2020 0810 EDT Patient calling to cancel the 8:45 appointment today with as she is ill. She will call back and reschedule when she feels better. * Telephone Encounter - Meme Lemus - 06/09/2020 1232 EDT Outreached Miguelina, scheduled an NPV TVD EXT appt with Dr. Dorantes on Sunday06/15/2020 at 8:45 AM. [place]: [phone] EMail: [email or web address] Meeting ID: [phone] Password: [id number] documented in this encounter Plan of Treatment Upcoming Encounters Date Type Department Care Team (Late st Contact Info) Description 02/13/2024 13:00 EST Office Visit [facility] Neurology - S [address] [address] Alta Walter MD [address] [place] [address] [address] [place] [phone] documented as of this encounter Visit Diagnoses Not on filedocumented in this encounter Care Teams Rn Pacu Relationship Specialty Start Date End Date Yumiko Tavarez MD [address] [place] [address] PCP - General 12/29/19 documented as of this encounter
--- OUTSIDE RECORDS SUMMARY | 2023-09-21 17:02 | XMS_ITS | Encounter Summary ---
Author Organization [facility] Address [address] [place] [address] Care Team Providers Care Boatwright Name Role Phone Yumiko Tavarez MD Primary Care Provider [phone] Encounter Details Date Type Department Care Team (Late st Contact Info) Description 10/25/2020 Specialty Pharmacy [facility] - [facility] [address] [place], [place] [phone] Blanca Vaughn, [facility] [address] [facility] [address] [place] [phone] Social History Tobacco Use Types Packs/Day Years [...] Info) Description 02/13/2024 13:00 EST Office Visit [facility] Neurology - S [place] [address] [place], [place] [address] Alta Walter MD [address] [place] [address], [address] [place] [phone] documented as of this encounter Visit Diagnoses Not on filedocumented in this encounter Care Teams Boatwright Relationship Specialty Start Date End Date Yumiko Tavarez MD [address] [place] [phone] PCP - General 12/29/19 documented as of this encounter
--- OUTSIDE RECORDS SUMMARY | 2023-09-21 17:02 | XMS_ITS | Encounter Summary ---
Author Organization [facility] Address [address] [place] [address] Care Team Providers Care Wound/Ostomy Clinical Nurse Specialist Name Role Phone Yumiko Tavarez MD Primary Care Provider [phone] Reason for Visit * Reason Onset Date Comments Medication Management 10/22/2020 Austedo Encounter Details Date Type Department Care Team (Late st Contact Info) Description 10/22/2020 Telephone [facility] Neurology - S [address] [phone] Alta Walter MD [address] [place] [address], [address] [place] [address] Medication Management (Austedo) Social History Tobacco Use Types Packs/Day Years [...] Encounter - Sunni Ivey RN - 11/05/2020 9342 EDT Spoke with Miguelina and let her know that Dr. Thakkar wants her to increase the Austedo to 18mg in the amand 18mg at night and to let us know how she responds in a few weeks. She verbalized understanding. * Telephone Encounter - Kena Marshall - 11/05/2020 1630 EDT Pt calling in regarding medication, Austedo. Stated she last spoke to Cris in the specialty clinic on 10/27/20 about increasing the Austedo. She has been on the same dose for a month. She is not having any side effects but no benefit either. She would like to discuss increasing it. * Telephone Encounter - Blanca Vaughn RPH - [...] Info) Description 02/13/2024 13:00 EST Office Visit [facility] Neurology - S [address] [address] Alta Walter MD [address] [place] [address], [address] [place] [phone] documented as of this encounter Visit Diagnoses Not on filedocumented in this encounter Care Teams Wound/Ostomy Clinical Nurse Specialist Relationship Specialty Start Date End Date Yumiko Tavarez MD [address] [place] [phone] PCP - General 12/29/19 documented as of this encounter
--- OUTSIDE RECORDS SUMMARY | 2023-09-21 17:02 | XMS_ITS | Encounter Summary ---
Author Organization [facility] Address [address] [place] [address] Care Team Providers Care Endocrinology Specialist Name Role Phone Yumiko Tavarez MD Primary Care Provider [phone] Reason for Visit * Reason Onset Date Comments Medication Management 09/16/2020 Encounter Details Date Type Department Care Team (Late st Contact Info) Description 09/16/2020 Telephone [facility] Neurology - S [address] [phone] Alta Walter MD [address] [place] [address] [address] [place] [phone] Medication Management Social History Tobacco Use Types [...] Encounter - Cristel Doss RN - 09/16/2020 5313 EDT Spoke with Yuriy pharmacist at [facility], he was unsure of what questions the previous pharmacist had, as the directions are clear for the dosing increase of Austedo, he will get this processed for shipment. * Telephone Encounter - Eric Ivey - 09/16/2020 0917 EDT Jade calling in regards to Austedo script. She is looking for a call back with instruction clarification and to confirm the increase. Also wondering where in therapy this patient is. Ref: [id number] documented in this encounter Plan of Treatment Upcoming Encounters Date Type Department Care Team (Late st Contact Info) Description 02/13/2024 13:00 EST Office Visit [facility] Neurology - S [address] [address] Alta Walter MD [address] [place] [address], Level [address] [place] [phone] documented as of this encounter Visit Diagnoses Not on filedocumented in this encounter Care Teams Endocrinology Specialist Relationship Specialty Start Date End Date Yumiko Tavarez MD [address] [place] [address] PCP - General 12/29/19 documented as of this encounter
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
--- OUTSIDE RECORDS SUMMARY | 2023-09-21 17:02 | XMS_ITS | Encounter Summary ---
Author Organization [facility] Address [address] [place] [address] Care Team Providers Care Cage Tender Name Role Phone Yumiko Tavarez MD Primary Care Provider Encounter Details Date Type Department Care Team (Latest Contact Info) Description 05/20/2020 Travel Social History Tobacco Use [...] 11:03 EDT documented as of this encounter Plan of Treatment Upcoming Encounters Date Type Department Care Team (Late st Contact Info) Description 02/13/2024 13:00 EST Office Visit [facility] Neurology - [address] [place] [address] [place], [place] [address] Alta Walter MD [address] [facility], [address] [place] [phone] documented as of this encounter Visit Diagnoses Not on filedocumented in this encounter Care Teams Cage Tender Relationship Specialty Start Date End Date Yumiko Tavarez MD [address] [place] [phone] PCP - General 12/29/19 documented as of this encounter
--- OUTSIDE RECORDS SUMMARY | 2023-09-21 17:02 | XMS_ITS | Encounter Summary ---
Author Organization [facility] Address [address] [place] [address] Care Team Providers Care Rangelands Conservation Laborer Name Role Phone Yumiko Tavarez MD Primary Care Provider [phone] Reason for Visit * Reason Onset Date Comments Medication Management 10/06/2020 Encounter Details Date Type Department Care Team (Late st Contact Info) Description 10/06/2020 Telephone [facility] Neurology - [address] [phone] Alta Walter MD [address] [place] [address] [address] [place] [phone] Medication Management Social History Tobacco Use Types [...] Refills Start Date End Da te deutetrabenazine 12 mg tablet Take 1 Tablet by mouth 2 times daily. 180 Tablet 3 10/13/2020 11/29/2020 deutetrabenazine (AUSTEDO) 6 mg tablet Take 6 mg by mouth every morning. 30 Tablet 1 10/13/2020 11/29/2020 deutetrabenazine (AUSTEDO) 6 mg tablet Take 6 mg by mouth every morning. 30 Tablet 1 10/08/2020 10/13/2020 documented in this encounter Miscellaneous Notes * Addendum Note - Cisco Vaughn RPH - 10/13/2020 1007 EDTAddended by: CISCO VAUGHN on: 10/13/2020 10:07 Modules accepted: Orders * Telephone Encounter - Cisco Vaughn RPH - 10/08/2020 1452 EDT Incoming call from Miguelina regarding Austedo. Patient has been taking 12mg PO BID for 2 weeks at this point, denies improvement and side effects. Documentation shows that a renewal of her 12mg PO BID Rx was sent to [facility] today. Additional Rx can be sent for a different strength so that dose increase may be pursued. After discussion with prescriber, the plan will be for Miguelina to initiate 18mg (12+6) PO QAM and 12mgPO QPM. I will follow up with the patient 1-2 weeks after the dose increase to assess efficacy/tolerance. Telephone call to patient, voicemail left asking for call back. Cisco Vaughn, Pharm.D. [facility] Ambulatory Pharmacist Clinician 10/08/2020 * Telephone Encounter - Alta Guajardo - 10/08/2020 1436 EDT Miguelina called to advise that no one has called her back yet from the specialty pharmacy. Transferred to specialty pharmacy - * Telephone Encounter - Linette Diaz - 10/06/2020 0816 EDT Pt called to let the office know that the Austedo 12 mg tab is having no effect, no side effects but also no improvement, should she increase dosage documented in this encounter Plan of Treatment Upcoming Encounters Date Type Department Care Team (Late st Contact Info) Description 02/13/2024 13:00 EST Office Visit [facility] Neurology - [address] [place] [address] Alta Walter MD 1 [facility], [address] [place] [phone] documented as of this encounter Visit Diagnoses Not on filedocumented in this encounter Discontinued Medications Medication Sig Discontinue Reason Start Date End Da te deutetrabenazine 12 mg tablet Take 1 Tablet by mouth 2 times daily. Reorder 10/08/2020 10/13/2020 deutetrabenazine (AUSTEDO) 6 mg tablet Take 6 mg by mouth every morning. Reorder 10/08/2020 10/13/2020 documented as of this encounter Care Teams Rangelands Conservation Laborer Relationship Specialty Start Date End Date Yumiko Tavarez MD [address] [place] [phone] PCP - General 12/29/19 documented as of this encounter
--- OUTSIDE RECORDS SUMMARY | 2023-09-21 17:02 | XMS_ITS | Encounter Summary ---
Author Organization [facility] [place] Address [address] [place] [address] Care Team Providers Care Directional Bore Operator Name Role Phone Yumiko Tavarez MD Primary Care Provider [phone] Reason for Visit * Reason Comments Follow-up Telemedicine Video Visit Encounter Details Date Type Department Care Team ([facility] st Contact Info) Description 05/19/2021 16:00 EDT Telemedicine [facility] Neurology - [address] [id number] Alta Walter MD [address] [place] [address] Level 2 [place] [phone] Tardive dyskinesia (Primary Dx); Functional neurological symptom [...] this encounter Patient Instructions * Patient Instructions* Alta Thakkar MD - 05/19/2021 16:00 EDT -- Add clonazepam 0.5mg tablets: AM PM week 1 1/2 week 2 1/2 1/2 week 3 1/2 1 week 4 1 1 -- Reach out in a month to let me know how things are going -- Consider trying cognitive behavioral therapy or biofeedback - these are low risk treatments thatcan sometimes help with involuntary movements documented in this encounter Ordered Prescriptions Prescription Sig Dispensed Refills Start Date End Da te clonazePAM (KLONOPIN) 0.5 mg tablet Take 1/2 tablet at bedtime x 1 week, then 1/2 tablet twice daily x 1 week, then 1/2 in AM and 1 tablet at bedtime x 1 week, then 1 tablet twice daily thereafter 60 Tablet 1 05/19/2021 06/23/2021 documented in this encounter Progress Notes * Alta Thakkar MD - 05/19/2021 1600 EDT Images from the original note were not included. Type of visit: Follow-up Telehealth visit Clinician Requesting Consultation: Yumiko Tavarez MD [address] [place] [phone] Fax: Primary Pediatric Surgeon: Yumiko Tavarez [address] [place] [phone] ASSESSMENT & PLAN / RECOMMENDATIONS 1. Tardive dyskinesia 2. Functional neurological symptom disorder with abnormal movement Miguelina Morales is a 56 y.o. woman who returns to the [facility] [...] what sounds like a paradoxical dystonic reaction. On today's examination, she is off all medications. She has mild intermittent movements around the mouth, which seem to mahesh when she is speaking. I could not visualize any tongue protrusion. We discussed via message and again today that there are no other medications with good evidence fortreating tardive dyskinesia. Her lack of response to the medication suggests to me that she is refractory to treatment, or I am incorrect about the diagnosis. We have previously discussed the conceptof a functional neurological disorder and I think some of her other movements (e.g. hand tremor, foot shaking) are likely FND, so it is possible that the orobuccolingual movements are also related. Jarrell suggested pursuing cognitive behavioral therapy or biofeedback in the past, since it could potentially help with the stress- and anxiety-induced components of her disorder, but she is not particu larly interested. She is interested in trying other medication options, despite lack of evidence for their efficacy. I think the two most reasonable, low risk options are either levetiracetam or clonazepam -- she elected for the latter. Clonazepam could also help with mood, whereas levetiracetam could potentially worsen mood. Return to clinic: 3-4 months, on-site SUBJECTIVE Reason for consultation/ Chief [...] time for pain. Interval history (last visit 01/20/2021 via Telehealth): Since the last visit, we completed a titration of deutetrabenazine and valbenazine. Neither were helpful for her symptoms. On the higher dose of valbenazine, she experienced focal dystonic movements of the mouth and tongue, more sustained andproblematic to her, so we immediately started to down-titrate. Previous medication trials for dyskinesia / chorea: Amantadine: did not work up to 100mg BID Tetrabenazine: did not work up to 25mg BID, made her sleepy Deutetrabenazine: did not work up to 48mg daily, no side effects Valbenazine: tried up to 80mg and it caused her to have sustained dystonic movements in the mouth and tongue Previous psychiatric medications: Lexapro 20mg Remeron 45mg [...] difficulty - has dysphagia, referral sent to [facility] Urinary dysfunction - okay in the morning when she first wakes up, then feels like later on she hasa hard time going and she has to focus on it, not urinary frequency Current Medications: Outpatient Medications Marked as Taking for the 05/19/21 encounter (Telemedicine) with Alta Thakkar MD Medication [...] naloxone (NARCAN) 4 mg/actuation nasal spray 1 [place] by nasal route as needed. ??? omeprazole [...] 150 MG TO EQUAL 200 MG ??? valbenazine (INGREZZA INITIATION PACK) 40 mg (7)- 80 mg (21) capsule,dose pack Take 1 capsule by mouth daily. Take 40mg by mouth daily for 1 week, then increase to 80mg daily thereafter 28 capsule 0 ??? valbenazine (INGREZZA) 80 mg capsule Take 80 mg by mouth daily. 30 capsule 1 ??? 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 There were mild orolingual movements, though no chad tongue protrusion. Occasional biting of the lip. She does not sound dysarthric. DATA No data to review today. Previous [...] following activities: Personal review of available imaging Patient/healthcare technician education Scanned health information available from the referring and/or primary provider(s) Review of the pertinent information in the electronic health record Care plan formulation Supportive counseling Alta Thakkar MD Attending Physician, Movement Disorders Department of Neurology documented in this encounter Plan of Treatment Upcoming Encounters Date Type Department Care Team (Late st Contact Info) Description 02/13/2024 13:00 EST Office Visit [facility] Neurology - [address] [id number] Alta Walter MD [address] [place] [address], [address] [place] [phone] documented as of this encounter Visit Diagnoses Diagnosis Tardive dyskinesia- Primary Subacute dyskinesia due to drugs 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 Take 40mg by mouth daily for 1 week, then increase to 80mg daily thereafter Therapy completed 03/02/2021 05/19/2021 valbenazine (INGREZZA) 80 mg capsule Take 80 mg by mouth daily. Therapy completed 03/02/2021 05/19/2021 documented as of this encounter Care Teams Directional Bore Operator Relationship Specialty Start Date End Date Yumiko Tavarez MD [address] [place] [phone] PCP - General 12/29/19 documented as of this encounter
--- OUTSIDE RECORDS SUMMARY | 2023-09-21 17:02 | XMS_ITS | Encounter Summary ---
Author Organization [facility] Address [address] [place] [address] Care Team Providers Care Pc Maintenance Technician Name Role Phone Unknown, Provider Primary Care Provider [phone] Yumiko Tavarez MD Primary Care Provider [phone] Encounter Details Date Type Department Care Team (Latest Contact Info) Description 01/20/2019 Lab Requisition [facility] Pathology & Laboratory Medicine - [facility] [address] [place] [address] Yumiko Tavarez MD [address] [place] [phone] Encounter for general adult medical examination without abnormal findings; Encounter for gynecological examination (general) (routine) without abnormal findings; Encounter for screening for malignant neoplasm of cervix Social History Tobacco Use Types Packs/Day Years [...] [facility] Neu[facility] - [address] [place] [address] [place], [place] [phone] Alta Walter MD [address] [place] [address], Level 2 [place] [phone] documented as of this encounter Procedures Procedure Name Priority Date/Time Associated Diagnosis Comments PAP TEST Today 01/16/2019 14:00 EST Encounter for general adult medical examination without abnormal findings Encounter for gynecological examination (general) (routine) without abnormal findings Encounter for screening for malignant neoplasm of cervix HPV DNA DETECTION WITH GENOTYPING, PCR Today 01/16/2019 14:00 EST Encounter for general adult medical examination without abnormal findings Encounter for gynecological examination (general) (routine) without abnormal findings Encounter for screening for malignant neoplasm of cervix documented in this encounter Results * (ABNORMAL) HUMAN PAPILLOMAVIRUS (HPV) DETECTION-HIGH RISK TYPES (01/16/2019 14:00 EST) HPV other High Risk types, PCR Positive( A) Negative 01/22/2019 15:05 [facility] Comment:E6 OR E7 mRNA from o ne or more types of HPV types 16,18,31,33,35,39,45,51,52,56,58,59,66, and 68 is detected by metal organ pipe maker mediated amplification. High and intermediate risk HPV types are associated with most squamous intraepithelial lesions and cervical cancers. Papanicolaou smear specimen (specimen) CERVIX UTERI STRUCTURE / Unknown 01/16/2019 14:00 EST 01/21/2019 9:36 EST Yumiko Tavarez MD MICROBIOLOGY - GENER AL ORDERABLES [facility] [address] [place] [address] * PAP TEST (01/16/2019 14:00 EST) Specimens A. Cervix and/or Endocervix, , ThinPrep Imaging System with Manual Evaluation 01/22/2019 15:05 [facility] Specimen Adequacy Satisfactory for Evaluation - transformation zone component present 01/22/2019 15:05 [facility] General Categorization Negative for intraepithelial lesion or malignancy 01/22/2019 15:05 [facility] Attestation . 01/22/2019 15:05 [facility] at 1505 Clinical History NONE 01/23/20 19 15:05 EST [facility] HPV The result for the Human Papillomavirus (HPV) Detection-High Risk Types is Positive . E6 OR E7 mRNA from one or more types of HPV types 16,18,31,33,35,39 ,45,51,52,56,58,5 9,66, and 68 is detected by metal organ pipe maker mediated amplification. High and intermediate risk HPV types are associated with most squamous intraepithelial lesions and cervical cancers. Testing was performed on specimen [id number] and was resulted on 01/22/2019 1503 EST by ANTHONY, LAB INSTRUMENT RESULTS IN 01/22/2019 15:05 EST [facility] Scanned Images 01/22/2019 15:05 [facility] Papanicolaou smear specimen (specimen) CERVIX UTERI STRUCTURE / Unknown 01/16/2019 14:00 EST 01/20/2019 9:08 EST Yumiko Tavarez MD PATHOLOGY ORDERABLES Performing Organization Address City/State/[facility] Co de Phone Number [facility] [address] [place] [phone] documented in this encounter Visit Diagnoses Diagnosis Encounter for general adult medical examination without abnormal findings Unspecified general medical examination Encounter for gynecological examination (general) (routine) without abnormal findings Encounter for screening for malignant neoplasm of cervix Screening for malignant neoplasm of the cervix documented in this encounter Care Teams Pc Maintenance Technician Relationship Specialty Start Date End Date Unknown, Provider, PCP - General 08/05/08 12/28/19 Yumiko Tavarez MD [address] [place] [address] PCP - General 12/29/19 documented as of this encounter
--- OUTSIDE RECORDS SUMMARY | 2023-09-21 17:02 | XMS_ITS | Encounter Summary ---
Author Organization [facility] Address [address] [place] [address] Care Team Providers Care Radio Host Name Role Phone Yumiko Tavarez MD Primary Care Provider [phone] Encounter Details Date Type Department Care Team (Latest Contact Info) Description 03/02/2021 Lab Requisition [facility] Pathology & Laboratory Medicine - [facility] [address] [place] [address] Yumiko Tavarez MD [address] [place] [phone] Encounter for general adult medical examination without abnormal findings; Encounter for screening for malignant neoplasm of cervix; Encounter for gynecological examination (general) (routine) without abnormal findings Social History Tobacco Use [...] Info) Description 02/13/2024 13:00 EST Office Visit [facility] Neurology - [address] [place] [address] [place] [phone] Alta Walter MD [address] [place] [address], [address] [place] [phone] documented as of this encounter Procedures Procedure Name Priority Date/Time Associated Diagnosis Comments PAP TEST Today 02/28/2021 16:30 EST Encounter for general adult medical examination without abnormal findings Encounter for screening for malignant neoplasm of cervix Encounter for gynecological examination (general) (routine) without abnormal findings HPV DNA DETECTION WITH GENOTYPING, PCR Today 02/28/2021 16:30 EST Encounter for general adult medical examination without abnormal findings Encounter for screening for malignant neoplasm of cervix Encounter for gynecological examination (general) (routine) without abnormal findings documented in this encounter Results * (ABNORMAL) HUMAN PAPILLOMAVIRUS (HPV) DETECTION-HIGH RISK TYPES (02/28/2021 16:30 EST) HPV other High Risk types, PCR Positive( A) Negative 03/10/2021 15:14 EST [facility] Comment:E6 OR E7 mRNA from o ne or more types of HPV types 16,18,31,33,35,39,45,51,52,56,58,59,66, and 68 is detected by client representative mediated amplification. High and intermediate risk HPV types are associated with most squamous intraepithelial lesions and cervical cancers. Papanicolaou smear specimen (specimen) CERVIX UTERI STRUCTURE / Unknown 02/28/2021 16:30 EST 03/08/2021 15:40 EST Yumiko Tavarez MD MICROBIOLOGY - GENER AL ORDERABLES [facility] [address] [place] [phone] * PAP TEST (02/28/2021 16:30 EST) Specimens A. Cervix and/or Endocervix , ThinPrep Imaging System with Manual Evaluation 03/10/2021 15:14 [facility] Specimen Adequacy Satisfactory for Evaluation - transformation zone component present 03/10/2021 15:14 EST [facility] General Categorization Negative for intraepithelial lesion or malignancy 03/10/2021 15:14 [facility] Attestation . 03/10/2021 15:14 [facility] at 1514 Clinical History See below 03/10/19 15:14 [facility] HPV The result for the Human Papillomavirus (HPV) Detection-High Risk Types is Positive . E6 OR E7 mRNA from one or more types of HPV types 16,18,31,33,35,39 ,45,51,52,56,58,5 9,66, and 68 is detected by client representative mediated amplification. High and intermediate risk HPV types are associated with most squamous intraepithelial lesions and cervical cancers. Testing was performed on specimen [id number] and was resulted on 03/10/2021 0708 EST by ANTHONY, LAB INSTRUMENT RESULTS IN 03/10/2021 15:14 [facility] Performing Lab [facility] 03/10/2021 15:14 [facility] Scanned Images 03/10/2021 15:14 [facility] Papanicolaou smear specimen (specimen) CERVIX UTERI STRUCTURE / Unknown 02/28/2021 16:30 EST 03/02/2021 8:58 EST Yumiko Tavarez MD PATHOLOGY ORDERABLES [facility] [address] [place] [address] documented in this encounter Visit Diagnoses Diagnosis Encounter for general adult medical examination without abnormal findings Unspecified general medical examination Encounter for screening for malignant neoplasm of cervix Screening for malignant neoplasm of the cervix Encounter for gynecological examination (general) (routine) without abnormal findings documented in this encounter Care Teams Radio Host Relationship Specialty Start Date End Date Yumiko Tavarez MD [address] [place] [phone] PCP - General 12/29/19 documented as of this encounter
--- OUTSIDE RECORDS SUMMARY | 2023-09-21 17:02 | XMS_ITS | Encounter Summary ---
Author Organization [facility] Address [address] [place] [address] Care Team Providers Care Mobile Ui/Ux Designer Name Role Phone Yumiko Tavarez MD Primary Care Provider [phone] Reason for Visit * Reason Onset Date Comments Medications Refill 10/05/2020 Encounter Details Date Type Department Care Team (Late st Contact Info) Description 10/05/2020 Refill [facility] Neurology - [address] [id number] Alta Walter MD [address] [place] [address], [address] [place] [phone] Medications Refill Social History Tobacco Use Types [...] mouth 2 times daily. 180 Tablet 3 10/08/2020 10/13/2020 documented in this encounter Miscellaneous Notes * Telephone Encounter - Orly Bertrand MA - 10/05/2020 0108 EDT Fax received from pharmacy requesting a refill of Austedo 12 mg tab (12 mg, EVERY MORNING Starting 09/10/2020, Until Lisa 09/16/2020 at 2359, For 7 days, THEN 12 mg, 2 TIMES DAILY Starting Sun09/17/2020, Until Lisa 10/07/2020 at 2359, For 21 [...] Info) Description 02/13/2024 13:00 EST Office Visit [facility] Neurology - [address] [address] Alta Walter MD [address] [place] [address], [facility] [address] [place] [phone] documented as of this encounter Visit Diagnoses Not on filedocumented in this encounter Discontinued Medications Medication Sig Discontinue Reason Start Date End Da te deutetrabenazine 12 mg tablet Take 1 Tablet by mouth every morning for 7 days, THEN 1 Tablet 2 times daily for 21 days. Reorder 09/10/2020 10/05/2020 documented as of this encounter Care Teams Mobile Ui/Ux Designer Relationship Specialty Start Date End Date Yumiko Tavarez MD [address] [place] [phone] PCP - General 12/29/19 documented as of this encounter
--- OUTSIDE RECORDS SUMMARY | 2023-09-21 17:02 | XMS_ITS | Encounter Summary ---
Author Organization [facility] Address [address] [place] [address] Care Team Providers Care Excelsior Machine Operator Name Role Phone Yumiko Tavarez MD Primary Care Provider [phone] Reason for Visit * Reason Onset Date Comments Medications Refill 08/25/2020 Encounter Details Date Type Department Care Team (Late st Contact Info) Description 08/25/2020 Telephone [facility] Neurology - [address] [phone] Alta Walter MD [address] [place] [address] [address] [place] [phone] Medications Refill Social History Tobacco Use Types [...] encounter Miscellaneous Notes * Telephone Encounter - Linette Diaz - 08/25/2020 0814 EDT Pt called to confirm that the prescription was in the works for [facility], I confirmed that it was being worked on as recently as last night Please send script to [facility] documented in this encounter Plan of Treatment Upcoming Encounters Date Type Department Care Team (Late st Contact Info) Description 02/13/2024 13:00 EST Office Visit [facility] Neurology - [address] [place] [address] [place] [address] Alta Walter MD [address] [facility], [address] [place] [address] documented as of this encounter Visit Diagnoses Not on filedocumented in this encounter Care Teams Excelsior Machine Operator Relationship Specialty Start Date End Date Yumiko Tavarez MD [address] [place] [phone] PCP - General 12/29/19 documented as of this encounter
--- OUTSIDE RECORDS SUMMARY | 2023-09-21 17:02 | XMS_ITS | Encounter Summary ---
Author Organization [facility] Address [address] [place] [address] Care Team Providers Care Test Worker Name Role Phone Yumiko Tavarez MD Primary Care Provider Reason for Visit * Reason Comments New Patient Visit * Referral (Routine) - Closed Specialty Diagnoses / Procedures [facility] Referred To Contact Neurology Diagnoses Parkinson's disease ([facility]) Yumiko Tavarez MD [address] [place] [phone] Polo Peter MD [address] [place] [phone] Referral ID Status Reason Start Date Expiration Date Visits Re quested Visits Authorized [id number] Closed 1 1 Encounter Details Date Type Department Care Team ([facility] st Contact Info) Description 02/23/2020 13:15 EST Office Visit [facility] Neurology - [address] [id number] Alta Walter MD [address] [place] [phone] Involuntary movements (Primary Dx); Tremor; Peripheral polyneuropathy; PTSD (post-traumatic stress disorder) Social History Tobacco Use Types Packs/Day Years [...] EST documented in this encounter Progress Notes * Alta Thakkar MD - 02/23/20201314 EST Images from the original note were not included. Type of visit: New Patient Consultation Clinician Requesting Consultation: Yumiko Tavarez MD [address] [place] [address] Primary Supervisor [employer]: Yumiko Tavarez [address] [place] [address] ASSESSMENT & PLAN / RECOMMENDATIONS 1. Involuntary movements 2. Tremor 3. Peripheral polyneuropathy 4. PTSD (post-traumatic stress disorder) Miguelina Morales is a 55 y.o. woman who was referred to the [facility] Movement Disorders clinic for evaluation and management of involuntary movements and parkinsonism. She reports at least 8 years of hyperkinetic movements, which started distally in the toes and progressed proximally. Three years ago, she was evaluated by neurologists at [facility] and had a thorough evaluation for chorea, including HD genetic testing (results were negative). At subsequent evaluations, the phenomenology of her movements appeared more parkinsonian, so a DaTscan was obtained (results showed asymmetric uptake with decreased activity in the left caudate and putamen). She tried dopaminergic medications, but could not tolerate levodopa. Today, she is here for another opinion regarding the etiologyof her symptoms. Her examination shows mainly hyperkinetic movements, with irregular patterns of writhing and tapping in the feet and legs, and a more regular but very slow rhythmic movement at the right wrist. She is able to ambulate unassisted, however tends to have irregular foot placement and veers from side to side. She demonstrates astasia-abasia gait when walking in tandem, and is actuallyable to stand with her feet in tandem [...] labored but actually have good amplitude and speed.I am not sure what to make of this in the setting of the abnormal IRMA. There has been suggestion that the movement in the right wrist is a feature of parkinsonism, however that movement appears to betoo slow to be consistent with a parkinsonian resting tremor and actually abates with ambulation. She has good facial expression and spontaneous movements as well. I would like to review her imaging personally, and the patient provided consent to be video recorded for review in her Movement Disorders video rounds. I would like to see my colleagues here have anyother thoughts regarding the phenomenology and etiology of her condition. We did briefly discuss the possibility that this could be related to a connectivity problem rather than a structural problem (i.e. functional neurological disorder). Another piece of her history that could be consistent with this was her transient seizure disorder --she was medicated for only 2 years and now off medicationsentirely without recurrence of symptoms. This may also suggest a non-epileptic etiology. # She will provide a list of any psychiatric medications she has taken in the past # She consented to playing video recorded today, and I will review this along with her imaging and laboratory analysis with my colleagues # Will try to obtain records from [facility] (psychiatry) # If she has taken neuroleptics in the past, I might be more convinced that there is some Return to clinic: 2-3 months (can be Telehealth) SUBJECTIVE Reason for consultation/ Chief complaint: Parkinsonism, involuntary movements History of Presenting Illness (HPI): Miguelina Morales is a 55 y.o. woman who was referred to the [facility] Movement Disorders clinic for evaluation and management of possible parkinsonism and involuntary movements. Accompanied by: self Handedness: right-handed About 8 years ago, she started noticing involuntary movmeents in both legs, distally in the toes tostart. They were initially rhythmic in the toes, [...] difficulty - has dysphagia, referral sent to [facility] Current Medications: Outpatient Medications Marked as [...] naloxone (NARCAN) 4 mg/actuation nasal spray 1 [place] by nasal route as needed. ??? 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 The frequency ofthese movements is variable during the examination - at times there is a rapid tapping of her anklewhile her toes are planted on the ground and she is performing other maneuvers, other times there are alternating bouncing movements of both feet on and off the ground, other times there is a much slower tapping of the toes. Another movement entirely is a horizontal movement of the foot along the plane of the floor. When she rises to a standing position, she holds the right wrist slightly flexed, and there is a slow flexion/extension motion at the right wrist. Other times, this movement is flexion/extension at the MCP/PIP joints.. There is also another movement that is more irregular and writing, like chorea. Repetitive movements of the upper and lower extremities were labored, but actually did not appear to decrement. Spontaneous movements did not appear bradykinetic, and she moves both arms rather symmetrically. When standing in [place], she has bouncing of the knees bilaterally. She is able to close her eyes and stand for a few seconds - her upper torso sways dramatically but no movement in the legs and shedoes not fall over. During that maneuver, there is a flapping tremulous movement at the bilateral MCP joints. Reflexes: Biceps Triceps BR Patellar Achilles Left 2+ 1+ 2+ 1+ 1+ Right 1+ 1+ 1+ 1+ 1+ Toes downgoing bilaterally. Sensory examination: Reports decreased sensation in the lower extremities bilaterally - to vibration, sharp. Intact light touch, JPS. Station/Gait: Good stride length and thad. She does cross her feet frequently when walking at first. There aretimes however that she is able to walk [...] caudate and putamen. ATTESTATION A total of 60 minutes were spent on this visit. Time dedicated to this visit was spent on the following activities: Review of the available [facility] electronic health record Scanned health information available from the referring and/or primary provider(s) Patient/weekend caregiver education Care plan formulation Supportive counseling Thank you for the opportunity to participate in this patient's care. If there are any questions, please contact the office at [phone]. Alta Thakkar MD Attending Physician, Movement Disorders Department of Neurology documented in this encounter Plan of Treatment Upcoming Encounters Date Type Department Care Team (Late st Contact Info) Description 02/13/2024 13:00 EST Office Visit [facility] Neurology - S [place] [address] [place], [place] [phone] Alta Walter MD [address] [place] [address], [facility] [address] [place] [address] documented as of this encounter Visit Diagnoses Diagnosis Involuntary movements- Primary Abnormal involuntary movements Tremor Abnormal involuntary movements Peripheral polyneuropathy Unspecified hereditary and idiopathic peripheral neuropathy PTSD (post-traumatic stress disorder) Posttraumatic stress disorder documented in this encounter Historical Medications * This list may reflect changes made after this encounter. Medication Sig Dispensed Refills Start Date End Date zolpidem (AMBIEN) 10 mg tablet Take 1 Tablet by mouth. Every other night pregabalin (LYRICA) 150 mg capsule every morning. 02/02/2020 pregabalin (LYRICA) 50 mg capsule 2 Capsules. In PM 02/02/2020 oxyCODONE-acetaminophen (PERCOCET) 10-325 mg per tablet Take 1 Tablet by mouth every 6 hours. omeprazole (PRILOSEC) 20 mg capsule Take 1 Capsule by mouth every morning. 12/17/2019 naloxone (NARCAN) 4 mg/actuation nasal spray 0.1 mL by nasal route as needed. folic acid (FOLVITE) 1 mg tablet Take 1 Tablet by mouth daily. cyanocobalamin 1,000 mcg tablet Take 1 Tablet by mouth daily. cholecalciferol (VITAMIN D3) 1,250 mcg (50,000 unit) capsule Take 1 Capsule by mouth once a week. calcium carbonate (TUMS) 200 mg calcium (500 mg) tablet,chewable Take 2 Tablets by mouth 2 times daily. added in this encounter Care Teams Test Worker Relationship Specialty Start Date End Date Yumiko Tavarez MD [address] [place] [address] PCP - General 12/29/19 documented as of this encounter
--- OUTSIDE RECORDS SUMMARY | 2023-09-21 17:02 | XMS_ITS | Encounter Summary ---
Author Organization [facility] Address [address] [place] [address] Care Team Providers Care Form Stripper Name Role Phone Yumiko Tavarez MD Primary Care Provider [phone] Reason for Visit * Reason Onset Date Comments Medication Management 06/01/2020 pt needs a ssistance acquiring this medication Encounter Details Date Type Department Care Team (Late st Contact Info) Description 06/01/2020 Telephone [facility] Neurology - S [address] [phone] Alta Walter MD [address] [place] [address] Level 2 [place] [address] Medication Management (pt needs assistance acquiring this medication) Social History Tobacco Use Types Packs/Day Years [...] Informed her that we are going to have our PA team here work on the PA for the Tetrabenazine and will call her will an update in a few days. Ref 311 order placed * Telephone Encounter - Geraldo Kwon - 06/01/2020 1003 EDT tetrabenazine 12.5 mg tablet Pt calls today to say she has not been able to get this medication from he pharmacy we sent the prescription to. We first sent this script to [facility] in [place], they do not do specialty meds. Then we sent it to [facility] yesterday. Pt called [facility] and they said to pt that her insuranceco. will not pay for it. Pt uses [facility]. [facility] called pt's insurance company and the insurance said to go onto a certain website and request a prior authorization. Website: [email or web address] Insurance company wants to use [facility] once the prior auth is obtained. 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
--- OUTSIDE RECORDS SUMMARY | 2023-09-21 17:02 | XMS_ITS | Encounter Summary ---
Author Organization [facility] Address [address] [place] [address] Care Team Providers Care Cake Inspector Name Role Phone Yumiko Tavarez MD Primary Care Provider [phone] Reason for Visit * Reason Onset Date Comments Appointment Related 05/31/2020 Encounter Details Date Type Department Care Team (Late st Contact Info) Description 05/31/2020 Telephone [facility] Neurology - S [address] [phone] Alta Walter MD [address] [place] [address] [address] [place] [phone] Appointment Related Social History Tobacco Use Types [...] * Telephone Encounter - Kena Marshall - 05/31/2020 1657 EDT Spoke with patient.Scheduled 2 mo FUR/zoom appt with Ariane for 07/22/20 at 10am 2 mo [email or web address] Meeting ID: [id number] Password: [email or web address] documented in this encounter Plan of Treatment Upcoming Encounters Date Type Department Care Team (Late st Contact Info) Description 02/13/2024 13:00 EST Office Visit [facility] Neurology - S [address] [phone] Alta Walter MD [address] [place] [address] 2 [place] [phone] documented as of this encounter Visit Diagnoses Not on filedocumented in this encounter Care Teams Cake Inspector Relationship Specialty Start Date End Date Yumiko Tavarez MD [address] [place] [phone] PCP - General 12/29/19 documented as of this encounter
--- OUTSIDE RECORDS SUMMARY | 2023-09-21 17:02 | XMS_ITS | Encounter Summary ---
Author Organization [facility] Address [address] [place] [address] Care Team Providers Care Jetting Machine Operator Name Role Phone Yumiko Tavarez MD Primary Care Provider [phone] Reason for Visit * Radiology Services (Routine) - Receiving Office to Obtain Authorization Specialty Diagnoses / Procedures Referred By Contac t Referred To Contact Nuclear Medicine Diagnoses Parkinsonism, unspecified Parkinsonism type (HCC-CMS) Procedures NM DATSCAN WITH SPECT/CT NM DATSCAN SPECT Alta Walter MD [address] [place] [address] 2 [place] [address] Referral ID Status Reason Start Date Expiration Date Visits Requested Visits Authorized [id number] Receiving Office to Obtain Authorization 04/07/2020 1 1 Encounter Details Date Type Department Care Team (Latest Contact Info) Description 05/20/2020 11:08 EDT - 05/20/2020 23:59 EDT Hospital Encounter [facility] Radiology Nuclear Medicine and PET - [address] [phone] Discharge Disposition: Home or Self Care Social [...] System [facility] Neurology - S [address] [address] Alta Walter MD [address] [place] [address], Level [address] [place] [address] documented as of this encounter Procedures Procedure Name Priority Date/Time Associated Diagnosis Comments NM DATSCAN WITH SPECT/CT Routine 05/20/2020 15:56 EDT Parkinsonism, unspecified Parkinsonism type ([facility]) documented in this encounter Results * NM [...] the accompanying low-dose CT. Alta Walter MD G NM ORDERABLES documented in this encounter Visit Diagnoses Not on filedocumented in this encounter Care Teams Jetting Machine Operator Relationship Specialty Start Date End Date Yumiko Tavarez MD [address] [place] [phone] PCP - General 12/29/19 documented as of this encounter
--- OUTSIDE RECORDS SUMMARY | 2023-09-21 17:02 | XMS_ITS | Encounter Summary ---
Author Organization [facility] Address [address] [place] [address] Care Team Providers Care Communication Instructor Name Role Phone Yumiko Tavarez MD Primary Care Provider [phone] Encounter Details Date Type Department Care Team (Late st Contact Info) Description 03/12/2020 Lab Requisition [facility] Pathology & Laboratory Medicine - [facility] [address] [place] [address] Yoli Jeong MD [address] [place] [address],[address] [address] Encounter for other general examination Social History Tobacco Use Types Packs/Day Years [...] [facility] - [address] [place] [address] [place], [place] [address] Alta Walter MD [address] [place] [address], Level [address] [place] [phone] documented as of this encounter Procedures Procedure Name Priority Date/Time Associated Diagnosis Comments SURGICAL PATHOLOGY Today 03/12/2020 15 :35 EST Encounter for other general examination documented in this encounter Results * SURGICAL PATHOLOGY (03/12/2020 15:35 EST) Final Diagnosis A. ENDOCERVIX, CURETTAGE: - Detached fragment of atypical squamous epithelium. See comment. - Scant benign endocervical epithelium. B. CERVIX, 3 O'CLOCK, BIOPSY: - Squamous mucosa with reactive epithelial change. - Chronic cervicitis 03/17/2020 16:48 [facility] Diagnosis Comment Within the endocervical curettage (A), there is an isolated fragment of squamous epithelium with cytologic changes that are suspicious but not fully diagnostic for a low-grade squamous intraepithelial lesion (CODI 1). Deeper sections have been examined. 03/17/2020 16:48 [facility] Attestation There was significant resident/fellow involvement in the diagnostic evaluation of this case. By the signature below, the attending physician certifies that they have personally conducted a gross and/or microscopic examination of the described specimens and rendered or confirmed the above diagnosis. 03/17/2020 16:48 [facility] at 1648 Clinical History ASCUS, (+) HPV 03/17/2020 16:48 [facility] Gross Description A. Received in formalin labelled with proper patient identification (initials C, L) and ECC is an aggregate of blood tinged mucus (1.3 x 0.7 x 0.2 cm). Entirely submitted in A1. B. Received in formalin labelled with proper patient identification (initials C, L) and ectocervix 3 o'clock is a painting-white tissue (0.4 x 0.3 x 0.2 cm). Entirely submitted in B1. CHRIS ULLOA(ASCP) 03/15/2020 8:30 03/17/2020 16:48 [facility] Resident/Julio César w: Jonah Patterson MD 03/17/2020 16:48 [facility] Performing Lab [facility] 16:48 [facility] Scanned Images 03/17/2020 16:48 EST [facility] Tissue ENTIRE WALL OF CERVIX / Unknown 03/12/2020 15:35 EST 03/12/2020 21:23 EST Tissue specimen (specimen) CERVIX UTERI STRUCTURE / Unknown 03/12/2020 15:35 EST 03/12/2020 21:23 EST Yoli Jeong MD PATHOLOGY ORDERABLES Performing Organization Address City/State/[facility] Co de Phone Number [facility] [address] [place] [address] documented in this encounter Visit Diagnoses Diagnosis Encounter for other general examination documented in this encounter Care Teams Communication Instructor Relationship Specialty Start Date End Date Yumiko Tavarez MD [address] [place] [address] PCP - General 12/29/19 documented as of this encounter
--- OUTSIDE RECORDS SUMMARY | 2023-09-21 17:02 | XMS_ITS | Encounter Summary ---
Author Organization [facility] Address [address] [place] [address] Care Team Providers Care Floor Coverings Installer Name Role Phone Yumiko Tavarez MD Primary Care Provider [phone] Reason for Visit * Reason Onset Date Comments Medication Management 09/10/2020 Austedo In itiation/Dose Increase Encounter Details Date Type Department Care Team (Late st Contact Info) Description 09/10/2020 Refill [facility] Neurology - [address] [place] [address] [place], [place] [address] Blanca Vaughn RPH [address] [facility] [address] [place] [address] Medication Management (Austedo Initiation/Dose Increase) Social History Tobacco Use Types Packs/Day Years [...] Tablet 2 times daily for 21 days. 49 Tablet 09/10/2020 10/05/2020 documented in this encounter Miscellaneous Notes * Telephone Encounter - Blanca Vaughn RPH - 09/10/2020 1318 EDT Telephone call to patient to discuss Austedo initiation. Patient states she started the drug ~08/30,she is currently taking 6mg PO BID. Miguelina denied any and all side effects at this dose, but is not certain it is helping yet. Dose to be increased per the previously discussed titration: Week 3: 12mg QAM, 6mg QPM Week 4: 12mg PO BID Patient instructed to continue her current dose until the 12mg Rx arrives, not beginning the week 3dosing until then so she does not run out of drug abruptly. I will follow up with her in 1-2 weeks to assess tolerance and therapeutic response. Miguelina will call in the meantime should she experience mood worsening, sedation, anticholinergic effects, or experience symptomatic worsening not managed bythe Austedo. Blanca Vaughn, Pharm.D. [facility] Ambulatory Pharmacist Clinician 09/10/2020 documented in this encounter Plan of Treatment Upcoming Encounters Date Type Department Care Team (Late st Contact Info) Description 02/13/2024 13:00 EST Office Visit [facility] Neurology - [address] [place] [address] [place] [address] Alta Walter MD [address] [place] [address], Level 2 [place] [address] documented as of this encounter Visit Diagnoses Not on filedocumented in this encounter Discontinued Medications Medication Sig Discontinue Reason Start Date End Da te deutetrabenazine (AUSTEDO) 6 mg tablet Take 6 mg by mouth daily for 7 days, THEN 6 mg 2 times daily for 21 days. Dose adjustment 08/26/2020 09/10/2020 documented as of this encounter Care Teams Floor Coverings Installer Relationship Specialty Start Date End Date Yumiko Tavarez MD [address] [place] [phone] PCP - General 12/29/19 documented as of this encounter
--- OUTSIDE RECORDS SUMMARY | 2023-09-21 17:02 | XMS_ITS | Encounter Summary ---
Author Organization [facility] Address [address] [place] [address] Care Team Providers Care Valve Steamer Name Role Phone Yumiko Tavarez MD Primary Care Provider [phone] Reason for Visit * Reason Onset Date Comments Medication Management 07/21/2020 Encounter Details Date Type Department Care Team (Late st Contact Info) Description 07/21/2020 Telephone [facility] Neurology - S [address] [phone] Alta Walter MD [address] [place] [address] Level [address] [place] [phone] Medication Management Social History Tobacco Use Types [...] Refills Start Date End Da te tetrabenazine 25 mg tablet tablet Take 1 Tab by mouth 3 times daily. 90 Tab 3 07/21/2020 07/27/2020 documented in this encounter Miscellaneous Notes * Telephone Encounter - Cynthia Colunga RN - 07/21/2020 1602 EDT TC to [facility], spoke to Rm Reardon Provided verbal order for tetrabenazine 25 mg tablets; verbal order confirmed. * Telephone Encounter - Orly Bertrand MA - 07/21/2020 4271 EDT TC received from pharmacist at [facility] requesting a call back regarding Tetrabenazine, they have a current order for 12.5 mg TID, per patient message with Dr. Thakkar on 07/16/2020, was instructed to increase medication to 25 mg TID. [facility] verbal order [phone] documented in this encounter Plan of Treatment Upcoming Encounters Date Type Department Care Team (Late st Contact Info) Description 02/13/2024 13:00 EST Office Visit [facility] Neurology - S [address] [address] Alta Walter MD [address] [place] [address] 2 [place] [address] documented as of this encounter Visit Diagnoses Not on filedocumented in this encounter Discontinued Medications Medication Sig Discontinue Reason Start Date End Da te tetrabenazine 12.5 mg tablet Take 1 Tab by mouth 3 times daily. Dose adjustment 06/16/2020 07/21/2020 documented as of this encounter Care Teams Valve Steamer Relationship Specialty Start Date End Date Yumiko Tavarez MD [address] [place] [address] PCP - General 12/29/19 documented as of this encounter
--- OUTSIDE RECORDS SUMMARY | 2023-09-21 17:02 | XMS_ITS | Encounter Summary ---
Author Organization [facility] Address [address] [place] [address] Care Team Providers Care Cbx Operator Name Role Phone Yumiko Tavarez MD Primary Care Provider [phone] Reason for Visit * Reason Onset Date Comments Other 05/21/2020 Encounter Details Date Type Department Care Team (Late st Contact Info) Description 05/21/2020 Telephone [facility] Neurology - S [address] [id number] Alta Walter MD [address] [place] [address] Level 2 [place] [address] Other Social History Tobacco Use Types Packs/Day [...] * Telephone Encounter - Kena Marshall - 05/21/2020 [...] Info) Description 02/13/2024 13:00 EST Office Visit [facility] Neurology - S [address] [address] Alta Walter MD 1 [facility], Level 2 [place] [address] documented as of this encounter Visit Diagnoses Not on filedocumented in this encounter Care Teams Cbx Operator Relationship Specialty Start Date End Date Yumiko Tavarez MD [address] [place] [address] PCP - General 12/29/19 documented as of this encounter
--- OUTSIDE RECORDS SUMMARY | 2023-09-21 17:02 | XMS_ITS | Encounter Summary ---
Author Organization [facility] Address [address] [place] [address] Care Team Providers Care Roll Finisher Name Role Phone Yumiko Tavarez MD Primary Care Provider [phone] Reason for Visit * Reason Onset Date Comments Prior Auth, Medication 03/01/2021 Ingrezza Encounter Details Date Type Department Care Team ([facility] st Contact Info) Description 03/01/2021 Telephone [facility] Neurology - S [address] [id number] Alta Walter MD [address] [place] [address], Level 2 [place] [address] Prior Auth, Medication (Ingrezza ) Social History Tobacco Use Types Packs/Day Years [...] Dispensed Refills Start Date End Da te valbenazine (INGREZZA) 80 mg capsule Take 80 mg by mouth daily. 30 capsule 1 03/02/2021 05/19/2021 valbenazine (INGREZZA INITIATION PACK) 40 mg (7)- 80 mg (21) capsule,dose pack Take 1 capsule by mouth daily. Take 40mg by mouth daily for 1 week, then increase to 80mg daily thereafter 28 capsule 03/02/2021 05/19/2021 valbenazine (INGREZZA) 80 mg capsule Take 80 mg by mouth daily. 30 capsule 1 03/02/2021 03/02/2021 valbenazine (INGREZZA INITIATION PACK) 40 mg (7)- 80 mg (21) capsule,dose pack Take 1 capsule by mouth daily. Take 40mg by mouth daily for 1 week, then increase to 80mg daily thereafter 28 capsule 03/02/2021 03/02/2021 documented in this encounter Miscellaneous Notes * Telephone Encounter - Ligia Badillo - 03/03/2021 1620 EST Prior Authorization Approval Medication: Ingrezza 80mg maintenance Insurance Name:[employer] Insurance Type: Commercial Approval Dates: 03/03/2021-02/28/2022 Authorization Number: [id number] Benefits Information: [facility] able to fill? : Yes Required Pharmacy: [facility] Additional Info/Other Notes: * Telephone Encounter - Edi Vega - 03/03/2021 1453 EST Prior Authorization Submission Process ?? Medication: Ingrezza 80mg daily - continuation Insurance: [employer] Insurance Type: Commercial Date PA Request Received: 02/11/21 PA Submission Date: 03/03/21 [facility] Mooney: n/a, submitting via PromptPA Notes: [employer] ID: [id number] Submitted by: Edi Vega Phone: [phone] * Telephone Encounter - Blanca Vaughn RPH - 03/02/[address] [facility] Neurology: Medication Therapy Initiation Miguelina Morales is a 56 y.o. female who will be initiating treatment with Ingrezza for Tardive Dyskinesia. Anticipated start date: Mar 2020 Filling Pharmacy: [facility] Specialty Pharmacy I performed a complete review [...] capsules daily for one week, and then increaseto 80mg daily afterwards if 40mg is well [...] any questions or concerns. Pres[facility] for the starterpack and maintenance [facility] Blanca Vaughn, Pharm.D. [facility] Ambulatory Pharmacist Clinician - Neurology 03/02/2021 ADDENDUM: [facility] is unable to purchase/dispense Ingezza. Prescriptions rerouted to [facility] Pharmacy,override obtained my pharmacy staff so medication may be filled by [facility] SPR[facility]. Medication will be delivered to patient Sunday03/07/2021 * Telephone Encounter - Gerry Wagner - 03/01/2021 1340 EST Prior Authorization Approval Medication: Ingrezza Insurance Name: [employer] Insurance Type: Commercial Approval Dates: 03/01/21 to 02/28/22 Authorization Number: [id number] Benefits Information: [facility] able to fill? : No Required Pharmacy: [facility] Prior Authorization Submission Process - Urgent Medication: Ingrezza 40mg & 80mg Insurance: [employer] Insurance Type: Commercial Date PA Request Received: 02/11/21 PA Submission Date: 03/01/21 [facility] Mooney: n/a, submitting via portal Notes: [facility] ID: [id number] Submitted by: Gerry Phone: [phone] documented in this encounter Plan of Treatment Upcoming Encounters Date Type Department Care Team (Late st Contact Info) Description 02/13/2024 13:00 EST Office Visit [facility] Neurology - S [place] [address] [place] [address] Alta Walter MD [address] [place] [address], Level 2 [place] [address] documented as of this encounter Visit Diagnoses Not on filedocumented in this encounter Discontinued Medications Medication Sig Discontinue Reason Start Date End Da te deutetrabenazine (AUSTEDO) 12 mg tablet Take 2 Tablets by mouth every morning AND 1 Tablet every evening. Discontinued by another clinician 11/29/2020 03/02/2021 deutetrabenazine (AUSTEDO) 6 mg tablet Take 6 mg by mouth every evening. Discontinued by another clinician 11/29/2020 03/02/2021 valbenazine (INGREZZA INITIATION PACK) 40 mg (7)- 80 mg (21) capsule,dose pack Take 1 capsule by mouth daily. Take 40mg by mouth daily for 1 week, then increase to 80mg daily thereafter Reorder 03/02/2021 03/02/2021 valbenazine (INGREZZA) 80 mg capsule Take 80 mg by mouth daily. Reorder 03/02/2021 03/02/2021 documented as of this encounter Care Teams Roll Finisher Relationship Specialty Start Date End Date Yumiko Tavarez MD [address] [place] [address] PCP - General 12/29/19 documented as of this encounter
--- OUTSIDE RECORDS SUMMARY | 2023-09-21 17:02 | XMS_ITS | Encounter Summary ---
Author Organization [facility] Address [address] [place] [address] Care Team Providers Care Hurricane Tracker Name Role Phone Yumiko Tavarez MD Primary Care Provider [phone] Reason for Visit * Reason Comments Follow-up Telemedicine Video Visit Encounter Details Date Type Department Care Team ([facility] st Contact Info) Description 01/20/2021 16:00 EST Telemedicine [facility] Neurology - S [address] [id number] Alta Walter MD [address] [place] [address] Level 2 [place] [address] Tardive dyskinesia (Primary Dx); Functional [...] Progress Notes * Alta Thakkar MD - 01/20/2021 1600 EST Images from the original note were not included. Type of visit: Follow-up Telehealth visit Clinician Requesting Consultation: Yumiko Tavarez MD [address] [place] [phone] Fax: Primary Spike Driver: Yumiko Tavarez [address] [place] [phone] ASSESSMENT & PLAN / RECOMMENDATIONS 1. Tardive dyskinesia 2. Functional neurological symptom disorder with abnormal movement Miguelina Morales is a 55 y.o. woman who returns to the [facility] Movement Disorders clinic for [...] involuntary movements. While standing during the examination, shegets an irregular bouncing movement in her left leg that is somewhat position-dependent. She also has intermittent, irregular tremor in the right hand. She would like to continue titrating deutetrabenazine up to the maximum dose (assuming she continues to tolerate the med), however I doubt at this point that she will experience any benefit. We can try valbenazine, but I suspect we may have the [...] dyskinesia - I still suspect the leg andarm movements may be route sales representative of a functional neurological disorder. [...] y.o. woman who was referred to the [facility] Movement Disorders clinic for [...] on deutetrabenazine 24mg in AM / 18mg inPM. She reports zero benefit. She has been [...] difficulty - has dysphagia, referral sent to [facility] Urinary dysfunction - okay in the morning [...] every morning AND 1 Tablet every evening. 90 Tablet 1 ??? deutetrabenazine (AUSTEDO) 6 mg tablet Take 6 mg by mouth every evening. 30 Tablet 1 ??? folic acid (FOLVITE) 1 mg tablet Take 1 mg by mouth daily. ??? naloxone (NARCAN) 4 mg/actuation nasal spray 1 Greig by nasal route as needed. ??? 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 There were mild orolingual movements, writhing movements of the shoulders, and fine dyskinetic movements of the fingers with arms extended. Demonstrates standing up with arms extended, she gets a bouncing movement in the right leg. She canget this to lessen with change in position, however the left leg starts up. With arms at her side, intermittently the right hand gets the wrist flexion posture with irregular shaking that I have seenbefore. Casual gait is normal, and she is [...] following activities: Personal review of available imaging Patient/transition of care specialist education Scanned health information available from [...] [facility] Neurology - S [address] [address] Alta Walter MD [address] [place] [address], [facility] 2 [place] [address] documented as of this encounter Visit Diagnoses Diagnosis Tardive dyskinesia- Primary Subacute dyskinesia due to drugs Functional neurological symptom disorder with abnormal movement Conversion disorder documented in this encounter Care Teams Hurricane Tracker Relationship Specialty Start Date End Date Yumiko Tavarez MD [address] [place] [address] PCP - General 12/29/19 documented as of this encounter
--- OUTSIDE RECORDS SUMMARY | 2023-09-21 17:02 | XMS_ITS | Encounter Summary ---
Author Organization [facility] Address [address] [place] [address] Care Team Providers Care Electronics Processing Supervisor Name Role Phone Yumiko Tavarez MD Primary Care Provider [phone] Reason for Visit * Reason Onset Date Comments Appointment Related 01/28/2021 Encounter Details Date Type Department Care Team (Late st Contact Info) Description 01/28/2021 Telephone [facility] Neurology - S [address] [phone] Alta Walter MD [address] [place] [address] Level 2 [place] [phone] Appointment Related Social History Tobacco Use Types [...] * Telephone Encounter - Meme Lemus - 03/03/2021 1305 EST Outreached Miguelina, advised that the 4 MO FUR TVD appt with Dr. Thakkar on 05/19/2021 at 3:30 PM has been changed to 4:00 PM. * Telephone Encounter - Kena Marshall - 01/28/2021 1439 EST Called and spoke to patient. Scheduled 4 Mo FUR/televideo (she requested a televideo) with Dr. Thakkar for 05/19/21 at 3:30pm 4 mo FUR/televideo zoom invite to be sent documented in this encounter Plan of Treatment Upcoming Encounters Date Type Department Care Team (Late st Contact Info) Description 02/13/2024 13:00 EST Office Visit [facility] Neurology - S [place] [address] [place], [place] [address] Alta Walter MD [address] [place] [address], Level [address] [place] [address] documented as of this encounter Visit Diagnoses Not on filedocumented in this encounter Care Teams Electronics Processing Supervisor Relationship Specialty Start Date End Date Yumiko Tavarez MD [address] [place] [address] PCP - General 12/29/19 documented as of this encounter
--- OUTSIDE RECORDS SUMMARY | 2023-09-21 17:02 | XMS_ITS | Encounter Summary ---
Author Organization [facility] Address [address] [place] [address] Care Team Providers Care Field Service Analyst Name Role Phone Yumiko Tavarez MD Primary Care Provider [phone] Reason for Visit * Reason Onset Date Comments Medications Refill 06/18/2020 Encounter Details Date Type Department Care Team (Late st Contact Info) Description 06/18/2020 Telephone [facility] Neurology - S [address] [phone] Alta Walter MD [address] [place] [address] Level 2 [place] [address] Medications Refill Social History Tobacco [...] to inform her that I spoke with [facility] and provided them with the PA approval #. Informed her that if I hear anything else I will let her know. She verbalized understanding and will call me back if she hasn't heard anything from [facility] in a couple days. * Telephone Encounter - Kane Parker RN - 06/21/[address] [facility]- provided them with the PA approval #. They are adding this to her chart and sending to the PA team. * Telephone Encounter - Martha Hutchinson MA - 06/21/2020 1513 EDT Received a phone call from [facility] on the refill line. Asking if the PA had been received as this pt's plan require a PA for the Rx. [phone] * Telephone Encounter - Kane Parker RN - 06/18/2020 1731 EDT Spoke with Miguelina to inform her that I sent the prescription to [facility] on 06/16/20. Informed her thatI just spoke with [facility] and they did receive the prescription and reported that it is in process.Informed her that the patient admitting representative said that she will receive a call once it has been processed to schedule the delivery. I apologized to Miguelina for this inconvenience. She will call me back on Sunday if she still hasn't heard anything from [facility]. * Telephone Encounter - Ghazala Bowen - 06/18/2020 1634 EDT Patient requesting to have tetrabenazine 12.5 mg tablet resent to [facility] - [address] documented in this encounter Plan of Treatment Upcoming Encounters Date Type Department Care Team (Late st Contact Info) Description 02/13/2024 13:00 EST Office Visit [facility] Neurology - S [place] [address] [place] [address] Alta Walter MD 1 [facility], Level 2 [place] [address] documented as of this encounter Visit Diagnoses Not on filedocumented in this encounter Care Teams Field Service Analyst Relationship Specialty Start Date End Date Yumiko Tavarez MD [address] [place] [address] PCP - General 12/29/19 documented as of this encounter
--- OUTSIDE RECORDS SUMMARY | 2023-09-21 17:02 | XMS_ITS | Encounter Summary ---
Author Organization [facility] Address [address] [place] [address] Care Team Providers Care Sexual Health Physician Name Role Phone Yumiko Tavarez MD Primary Care Provider [phone] Encounter Details Date Type Department Care Team (Late st Contact Info) Description 03/03/2021 Specialty Pharmacy [facility] [address] [place], [place] [address] lBanca Vaughn, [facility] [address] [facility] [address] [place] [phone] Social History Tobacco Use Types Packs/Day Years [...] Info) Description 02/13/2024 13:00 EST Office Visit [facility] Neurology - S [place] 1 [place], [place] [address] Alta Walter MD [address] [place] [address], Level 2 [place] [phone] documented as of this encounter Visit Diagnoses Not on filedocumented in this encounter Care Teams Sexual Health Physician Relationship Specialty Start Date End Date Yumiko Tavarez MD [address] [place] [phone] PCP - General 12/29/19 documented as of this encounter
--- OUTSIDE RECORDS SUMMARY | 2023-09-21 17:02 | XMS_ITS | Encounter Summary ---
Author Organization [facility] Address [address] [place] [address] Care Team Providers Care Central Sterile Supply Technician Name Role Phone Unknown, Provider Primary Care Provider Yumiko Tavarez MD Primary Care Provider [phone] Reason for Visit * Reason Onset Date Comments Appointment Related 11/18/2018 Encounter Details Date Type Department Care Team ([facility] st Contact Info) Description 11/18/2018 Telephone [facility] Neurology S [address] [address] Unknown, Provider, Appointment Related Social History Tobacco Use Types [...] * Telephone Encounter - Kena Marshall - 11/18/2018 1518 EDT Alta from referring office called to see appt scheduled. Advised that is being triaged right now documented in this encounter Plan of Treatment Upcoming Encounters Date Type Department Care Team (Late st Contact Info) Description 02/13/2024 13:00 EST Office Visit [facility] Neurology - S [place] [address] [place] [address] Alta Walter MD 1 [facility], Level 2 [place] [address] documented as of this encounter Visit Diagnoses Not on filedocumented in this encounter Care Teams Central Sterile Supply Technician Relationship Specialty Start Date End Date Unknown, Provider, PCP - General 08/05/08 12/28/19 Yumiko Tavarez MD [address] [place] [address] PCP - General 12/29/19 documented as of this encounter
--- OUTSIDE RECORDS SUMMARY | 2023-09-21 17:03 | XMS_ITS | Encounter Summary ---
[place] [address] Care Team Providers Care Setter Molding And Coremaking Machines Name Role Phone Yumiko Tavarez MD Primary Care Provider Reason for Referral * Consultation (Routine) - Closed Specialty Diagnoses / Procedures Referred By Contac t Referred To Contact Nephrology Diagnoses Stage 3 chronic kidney disease, unspecified whether stage 3a or 3b CKD Yumiko Tavarez MD [address] [place] [address] [facility] Nephrology [address] [place] [phone] Referral ID Status Reason Start Date Expiration Date V isits Requested Visits Authorized [id number] Closed Consult, Test & Treat PCP Updated and/or Approved 03/13/2022 09/09/2022 1 1 Encounter Details Date Type Department Care Team (Latest Contact Info) Description 03/13/2022 Transcribe Orders eDH Incoming Referrals [phone] Yumiko Tavarez MD [address] [place] [address] Stage 3 chronic kidney disease, unspecified whether stage 3a or 3b CKD Social History Tobacco Use Types Packs/Day Years Used Date Smoking Tobacco: Every Day Cigarettes 1 25 Smokeless Tobacco: Never Alcohol Use Standard Drinks/Week Comments Yes 0 (1 standard drink = 0.6 oz pur e alcohol) rare/seldom Sex and Gender Information Value Date Recorded Sex Assigned at Not on file Gender Identity Female 08/15/2022 11:38 AM EDT Sexual Orientation Not on file documented as of this encounter Plan of Treatment Upcoming Encounters Date Type Department Care Team (Latest Contact Info) Description 09/24/2023 10:00 AM EDT Laboratory Appointment Lab [address] [place] [address] 09/24/2023 11:30 AM EDT Office Visit Neph[place] [address] Nenita Grimes APRN [facility] [place] [address] Scheduled Referrals Name Type Priority Associated Diagnoses Orde r Schedule Referral to Nephrology Outpatient Referral Routine Stage 3 Chronic Kidney Disease, Unspecified Whether Stage 3a Or 3b Ckd Ordered: 03/13/2022 documented as of this encounter Visit Diagnoses Diagnosis Stage 3 chronic kidney disease, unspecified whether stage 3a or 3b CKD Stage 3a chronic kidney disease documented in this encounter Care Teams Setter Molding And Coremaking Machines Relationship Specialty Start Date End Date Yumiko Tavarez MD [address] [place] [address] PCP - General Family Medicine 07/07/16 documented as of this encounter
--- OUTSIDE RECORDS SUMMARY | 2023-09-21 17:03 | XMS_ITS | Encounter Summary ---
Author Organization [facility] [place] [address] Care Team Providers Care Owner Operator Tanker Truck Driver Name Role Phone Yumiko Tavarez MD Primary Care Provider [phone] Reason for Visit * Reason Onset Date Comments Other 02/04/2019 tetrabenazine Encounter Details Date Type Department Care Team (Late st Contact Info) Description 02/04/2019 Telephone Neurology at [facility] [place] [address] Razia Mims [place] [address] Other (tetrabenazine) Social History Tobacco Use Types Packs/Day Years Used Date Smoking Tobacco: Every Day Cigarettes 1 25 Smokeless Tobacco: Never Alcohol Use Standard Drinks/Week Comments Yes 0 (1 standard drink = 0.6 oz pur e alcohol) Very rare Sex and Gender Information Value Date Recorded Sex Assigned at Not on file Gender Identity Female 08/15/2022 11:38 AM EDT Sexual Orientation Not on file documented as of this encounter Miscellaneous Notes * Telephone Encounter - Nishi Gee RN - 02/13/2019 1:53 PM EST [facility]13[facility] at 2:02 pm to fax number [phone]. * Telephone Encounter - Whit Juares - 02/13/2019 12:05 PM EST [facility] called to ask that pt's insurance information and the clinicals regarding the medication be faxed to [phone]. * Telephone Encounter - Nishi Gee RN - 02/12/2019 2:22 PM EST Tetrabenazine order form faxed to [employer] on 02/12/19 at 2:23 pm to fax number [phone].Copy sent to medical records to be scanned to chart. * Telephone Encounter - Nishi Gee RN - [...] time. Pt states she has never used amail order specialty pharmacy before. I instructed her she will need to call her insurance and ask who they are contracted with. She would then need to call that specialty pharmacy and get signed up with them which she needs to do herself. Pt states that seems like an awful lot of work. I explained I will update and get back to her. * Telephone Encounter - Naye Red - 02/05/2019 4:36 PM EST Clinical Kettle Cleaner Message Caller: Miguelina Bradford not Pt / Relation to pt: Call back Number: [phone] Reason for call: Pt states that she [...] ?? Routine Message sent to the Nurse * Telephone Encounter - Nishi Gee RN - 02/04/2019 4:20 PM EST I will forward to Dr. Mims. * Telephone Encounter - Naye Red - 02/04/2019 4:09 PM EST Clinical Kettle Cleaner Message Caller: Miguelina If not Pt / Relation to pt: Call back Number: [phone] Reason for call: Pts medication Message/information for [...] 10:00 AM EDT Laboratory Appointment Lab [address] [place] [address] 09/24/2023 11:30 AM EDT Office Visit [place] [address] Nenita Grimes, [facility] [place] [address] documented as of this encounter Visit Diagnoses Not on filedocumented in this encounter Care Teams Owner Operator Tanker Truck Driver Relationship Specialty Start Date End Date Yumiko Tavarez MD [address] [place] [address] PCP - General Family Medicine 07/07/16 documented as of this encounter
--- OUTSIDE RECORDS SUMMARY | 2023-09-21 17:03 | XMS_ITS | Encounter Summary ---
Author Organization Formerly [facility] [place] [address] Care Team Providers Care Insulation Worker Interior Surface Name Role Phone Yumiko Tavarez MD Primary Care Provider [phone] Encounter Details Date Type Department Care Team (Late st Contact Info) Description 04/01/2019 Orders [place] [id number] Razia Mims MD [facility] [place] [address] Social History Tobacco Use Types Packs/Day Years [...] 10:00 AM EDT Laboratory Appointment Lab [address] [place] [address] 09/24/2023 11:30 AM EDT Office Visit Neph[place] [address] Nenita Grimes APRN [facility] [place], [place] [id number] documented as of this encounter Visit Diagnoses Not on filedocumented in this encounter Care Teams Insulation Worker Interior Surface Relationship Specialty Start Date End Date Yumiko Tavarez MD [address] [place] [address] PCP - General Family Medicine 07/07/16 documented as of this encounter
--- OUTSIDE RECORDS SUMMARY | 2023-09-21 17:03 | XMS_ITS | Encounter Summary ---
Author Organization [facility] [place] [address] Care Team Providers Care Animal Technician Name Role Phone Yumiko Tavarez MD Primary Care Provider [phone] Reason for Visit * Reason Onset Date Comments Prior Authorization 01/22/2019 XENAZINE 12. 5 MG #60 APPROVED 01/29/19-05/01/19 Encounter Details Date Type Department Care Team (Late st Contact Info) Description 01/22/2019 Telephone Neurology at [facility] [place] [address] Razia Mims MD [facility] [place] [address] Prior Authorization (XENAZINE 12.5 MG #60 APPROVED 01/29/19-05/01/19) Social History Tobacco Use Types Packs/Day Years [...] encounter Miscellaneous Notes * Telephone Encounter - Antonietta Yoon - 02/03/2019 11:36 AM EST Images from the original note were not included. * Telephone Encounter - Antonietta Yoon - 01/29/2019 10:50 AM EST Images from the original note were not included. FORM FILLED OUT AND FAXED TO [facility]. [phone] ~abnormal involuntary movements. 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 HD genetic test was negative. On follow up 1 month later she appeared more parkinsonian and Valentin scan was abnormal suggestive of PD. She had nausea on the sinemet and has been off of it since summer 2017. Amantadine did not work forher. She fainted with requip. Artane titrated up [...] had tremors and always moved his mouth (hehad false teeth). * Telephone Encounter - Antonietta Yoon - 01/29/2019 10:48 AM EST Images from the original note were not included. * Telephone Encounter - Antonietta Yoon - 01/29/2019 10:45 AM EST Images from the original note were not included. * Telephone Encounter - Whit Juares - 01/28/2019 2:03 PM EST Pt called to check on status. * Telephone Encounter - Naye Red - 01/22/2019 4:56 PM EST Clinical [place] Call Caller: Miguelina Bradford not Pt / Relation to pt: Call back number: [phone] Extension for call back number if appropriate: Medication requiring PA: Tetrabenazine [facility] Benefits/Coverage Company: [facility] Benefits/Coverage ID #: [id number] Pharmacy Benefits/Coverage Company Pharmacy used by patient: [facility] location: [facility] BIN#: PCN# : Disposition of Call: documented in this encounter Plan of Treatment Upcoming Encounters Date Type Department Care Team (Latest Contact Info) Description 09/24/2023 10:00 AM EDT Laboratory Appointment Lab [address] [place] [address] 09/24/2023 11:30 AM EDT Office Visit [place] [address] Nenita Grimes APRN [facility] [place] [address] documented as of this encounter Visit Diagnoses Not on filedocumented in this encounter Care Teams Animal Technician Relationship Specialty Start Date End Date Yumiko Tavarez MD [address] [place] [address] PCP - General Family Medicine 07/07/16 documented as of this encounter
--- OUTSIDE RECORDS SUMMARY | 2023-09-21 17:03 | XMS_ITS | Encounter Summary ---
Author Organization [facility] [place] [address] Care Team Providers Care Fire Control Mechanic Name Role Phone Yumiko Tavarez MD Primary Care Provider [phone] Encounter Details Date Type Department Care Team (Latest Contact Info) Description 05/08/2023 3:00 PM EST Laboratory Appointment Lab [address] [place] [address] Stage 3a chronic kidney disease; Hyperparathyroidism Social History Tobacco Use Types Packs/Day Years [...] 10:00 AM EDT Laboratory Appointment Lab [address] [place] [phone] 09/24/2023 11:30 AM EDT Office Visit Neph[place] [address] Nenita Grimes APRN [facility] [address] documented as of this encounter Procedures Procedure Name Priority Date/Time Associated Diagnosis Comments HC URINALYSIS ROUTINE Routine 05/08/2023 2:02 PM EST Stage 3a chronic kidney disease HC CREATININE - NON BLOOD Routine 05/08/2023 2:02 PM EST Stage 3a chronic kidney disease HC MICROALBUMIN, URINE Routine 05/08/2023 2:02 PM EST Stage 3a chronic kidney disease HC PARATHYROID HORMONE(PTH INTACT Routine 05/08/2023 1:54 PM EST Stage 3a chronic kidney disease Hyperparathyroidism HEMOGRAM Routine 05/08/2023 1:54 PM EST Stage 3a chronic kidney disease DIFFERENTIAL, AUTOMATED Routine 05/08/2023 1:54 PM EST Stage 3a chronic kidney disease HC VITAMIN D TOTAL-25 HYDROXY Routine 05/08/2023 1:54 PM EST Stage 3a chronic kidney disease Hyperparathyroidism HC CBC,PLT & AUTO DIFF Routine 05/08/2023 1:54 PM EST Stage 3a chronic kidney disease HC URIC ACID, SERUM Routine 05/08/2023 1 :54 PM EST Stage 3a chronic kidney disease HC PHOSPHORUS, SERUM Routine 05/08/2023 1:54 PM EST Stage 3a chronic kidney disease Hyperparathyroidism HC ALBUMIN, SERUM Routine 05/08/2023 1:5 4 PM EST Stage 3a chronic kidney disease BASIC METABOLIC PANEL (NON-FASTING) Routine 05/08/2023 1:54 PM EST Stage 3a chronic kidney disease documented in this encounter Results * (ABNORMAL) _Urinalysis with microscopic (05/08/2023 2:02 PM EST) Glucose UA Negative Negative mg/dL [facility] Protein UA Negative Negative mg/dL [facility] Bilirubin UA Negative Negative mg/dL [facility] Comment: Clinical correlation required for positive Urine Bilirubin results as false positive may occur with some drugs and drug related products. If a false positive is suspected a serum total bilirubin should be considered if clinically indicated. Urobilinogen UA Normal Normal mg/dL [facility] pH UA 5.5 5.0 - 8.0 [facility] Blood UA Small(A) Negative mg/dL [facility] Ketones UA Negative Negative mg/dL [facility] Nitrite UA Negative Negative [facility] Leukocytes UA Negative Negative mcL [facility] Appearance UA Clear Clear [facility] Spec [place] UA 1.016 1.005 - 1.030 [facility] Color UA Yellow Yellow [facility] RBC UA 2 0 - 4 /HPF [facility] WBC UA 1 0 - 5 /HPF [facility] Squam Epith UA 1 <=4 /HPF [facility] Urine 05/08/2023 2:02 PM EST 05/08/2023 2:17 PM EST Narrative Resulting Agency Comment Spec In Lab Nenita Grimes APRN URINE ORD ERABLES [facility] [place] [address] * U Albumin/Cre Ratio (05/08/2023 2:02 PM EST) Alb/Cr Ratio, Random Not Calculated 0 - 29 mcg/mg Cr [facility] Comment: Reference Ranges: <30 mcg/mg: Normal 30-300 mcg/mg: Moderately increased albuminuria.* >300 mcg/mg: Severely increased albuminuria. * ACEI or ARB recommended if diabetic; suggested if BP>130/80 without diabetes ACEI or ARB strongly recommended if diabetic; recommended if BP>130/80 without diabetes Two of three specimens collected within a 3 to 6 month period should be abnormal before considering a patient to have albuminuria. Transient causes: exercise, fever, infection, CHF, marked hyperglycemia or hypertension. Persistent albuminuria indicates CKD and is an independent risk factor for ASCVD. ADA Standards of Medical Care in Diabetes-2016; KDIGO: Kidney International Supplements (2012) 2, 357? 362 U Albumin Conc, Random <3.0 mg/L [facility] U Creatinine 128 mg/dL [facility] Urine 05/08/2023 2:02 PM EST 05/08/2023 2:17 PM EST Narrative Resulting Agency Comment Spec In Lab Nenita Grimes APRN URINE ORD ERABLES Performing Organization Address City/[facility] Co de Phone Number [facility] [place] [address] * Protein/Creatinine Ratio, urine (05/08/2023 2:02 PM EST) U Creatinine 128 mg/dL [facility] U Protein Ran <6 0 - 12 mg/dL [facility] Prot/Cre Ratio <0.1 ratio [facility] Urine 05/08/2023 2:02 PM EST 05/08/2023 2:17 PM EST Narrative Resulting Agency Comment Spec In Lab Nenita Tamayoaraemeka ROBERTN URINE ORD ERABLES Performing Organization Address [facility] Co de Phone Number [facility] [place] [address] * Differential, Automated (05/08/2023 1:54 PM EST) Neutrophils % 51.6 % [facility] Neutr Abs (ANC) 3.08 1.70 - 6.10 x10(3)/[facility] Lymphocytes % 39.8 % [facility] Lymphocytes Abs 2.4 0.9 - 3.2 x10(3)/[facility] Monocytes % 6.9 % [facility] Monocyte Abs 0.4 0.3 - 0.9 x10(3)/[facility] Eosinophils % 1.2 % [facility] Eosinophils Abs 0.1 0.0 - 0.4 x10(3)/[facility] Basophils % 0.3 % [facility] Basophils Abs 0.0 0.0 - 0.1 x10(3)/[facility] Immature Gran % 0.20 % [facility] Comment: Immature granulocytes(IG's)percentage and absolute count will include metamyelocytes, myelocytes, and promyelocytes. Blood smears from CBCs yielding IG's will be scanned manually for concordance. If this scan disagrees with the automated IG or if promyelocytes are noted, a manual differential will be performed. Kimberly Gran Abs 0.01 0.00 - 0.04 x10(3)/[facility] Blood 05/08/2023 1:54 PM EST 05/08/2023 2:00 PM EST Narrative Resulting Agency Comment Spec In Lab Ligia Lopez HAND I TUBE BENDER HEMATOLOGY ORDERABLE S Performing Organization Address City/State/[facility] Co de Phone Number [facility] [place] [address] * (ABNORMAL) Hemogram (05/08/2023 1:54 PM EST) WBC 6.0 4.0 - 9.5 x10(3)/[facility] RBC 3.94(L) 4.00 - 5.21 x10(6)/[facility] Hemoglobin 12.9 11.7 - 15.5 g/dL [facility] Hematocrit 39.0 35.7 - 45.8 % [facility] MCV 99.0(H) 82.6 - 94.4 fL [facility] MCH 32.7(H) 27.1 - 32.0 pg [facility] MCHC 33.1 31.7 - 35.0 g/dL [facility] Platelets 207 145 - 357 x10(3)/[facility] RDWSD 42.5 37.0 - 46.0 fL [facility] RDWCV 11.7 11.5 - 14.1 % [facility] MPV 10.9 7.6 - 12.9 fL [facility] nRBC % Auto 0.0 % [facility] nRBC Abs Auto 0.000 0.000 - 0.000 x10(3)/mcL [facility] Blood 05/08/2023 1:54 PM EST 05/08/2023 2:00 PM EST Narrative Resulting Agency Comment Spec In Lab Ligia Lopez APRN HEMATOLOGY ORDERABLE S [facility] [place] [address] * (ABNORMAL) Basic Metabolic Panel (non-fasting) (05/08/2023 1:54 PM EST) Glucose Lvl 89 65 - 199 mg/dL [facility] Comment:Diabetes: >=200 mg/d L plus symptoms BUN 11 8 - 18 mg/dL [facility] Creatinine 1.45(H) 0.70 - 1.20 mg/dL [facility] Sodium 140 135 - 145 mmol/L [facility] Potassium 4.0 3.5 - 5.0 mmol/L [facility] Comment: Please note: ??Patients with WBC >100,000 may have falsely elevated Potassium levels. ??For accurate Potassium quantification in these patients send serum separator tube (gold top) for subsequent determinations. ??Contact the Clinical Chemistry Laboratory if there are any questions. Chloride 102 98 - 107 mmol/L [facility] CO2 29 22 - 31 mmol/L [facility] Anion Gap 9 5 - 15 mmol/L [facility] Calcium 9.2 8.5 - 10.5 mg/dL [facility] Estimated GFR 41(L) >=60 mL/min/1. 73 m?? [facility] Comment: This patient's estimated GFR was calculated using the 2020 CKD-EPI equation. The estimated GFR can vary from the measured GFR by up to 30% in the absence of rapidly changing kidney function. Assessment of the estimated GFR is not appropriate when creatinine concentrations are rapidly changing. For clinical situations in which a more precise estimate of GFR is necessary, consider alternative methods of GFR estimation such as a 24-hour urine creatinine clearance. Assignment of CKD stage 1-5 for patients with an eGFR near the transition point between stages may be based on clinical assessment of muscle mass and symptoms in addition to eGFR. Blood 05/08/2023 1:54 PM EST 05/08/2023 2:00 PM EST Narrative Resulting Agency Comment Spec In Lab Ligia Lopez APRN CHEMISTRY ORDERABLES Performing Organization Address [facility] Co de Phone Number [facility] [place] [address] * (ABNORMAL) PTH (05/08/2023 1:54 PM EST) PTH 84(H) 15 - 65 pg/mL [facility] Blood 05/08/2023 1:54 PM EST 05/08/2023 2:00 PM EST Narrative Resulting Agency Comment Spec In Lab Ligia Lopez APRN CHEMISTRY ORDERABLES Performing Organization Address [facility] Co de Phone Number [facility] [place] [address] * Albumin Level (05/08/2023 1:54 PM EST) Albumin 4.1 3.2 - 5.2 g/dL [facility] Blood 05/08/2023 1:54 PM EST 05/08/2023 2:00 PM EST Narrative Resulting Agency Comment Spec In Lab Ligia Lopez APRN CHEMISTRY ORDERABLES Performing Organization Address [facility] Co de Phone Number [facility] [place] [address] * (ABNORMAL) Uric acid (05/08/2023 1:54 PM EST) Uric Acid 6.8(H) 2.5 - 6.5 mg/dL [facility] Blood 05/08/2023 1:54 PM EST 05/08/2023 2:00 PM EST Narrative Resulting Agency Comment Spec In Lab Ligia Lopez APRN CHEMISTRY ORDERABLES Performing Organization Address City/[facility]/ZIP Co de Phone Number [facility] [place] [address] * Phosphorus (05/08/2023 1:54 PM EST) Phosphorus 3.6 2.5 - 4.5 mg/dL [facility] Blood 05/08/2023 1:54 PM EST 05/08/2023 2:00 PM EST Narrative Resulting Agency Comment Spec In Lab Ligia Lopez APRN CHEMISTRY ORDERABLES Performing Organization Address [facility]/ZIP Co de Phone Number [facility] [place] [address] * Vitamin D, 25-Hydroxy (05/08/2023 1:54 PM EST) 25-OH Vit D Total 47 21 - 100 ng/mL [facility] 25-OH Vit D Interp Sufficient [facility] Blood 05/08/2023 1:54 PM EST 05/08/2023 2:00 PM EST Narrative Resulting Agency Comment Spec In Lab Ligia Lopez APRN CHEMISTRY ORDERABLES Performing Organization Address City/[facility] Co de Phone Number [facility] [place] [address] documented in this encounter Visit Diagnoses Diagnosis Stage 3a chronic kidney disease Hyperparathyroidism Hyperparathyroidism, unspecified Stage 3a chronic kidney disease documented in this encounter Care Teams Fire Control Mechanic Relationship Specialty Start Date End Date Yumiko Tavarez MD [address] [place] [address] PCP - General Family Medicine 07/07/16 documented as of this encounter
--- OUTSIDE RECORDS SUMMARY | 2023-09-21 17:03 | XMS_ITS | Encounter Summary ---
Author Organization [facility] Address [facility] [place] [address] Care Team Providers Care [employer] Name Role Phone Yumiko Tavarez MD Primary Care Provider [phone] Reason for Visit * Consultation (Routine) - Closed Specialty Diagnoses / Procedures Referred By Contac t Referred To Contact Nephrology Diagnoses Stage 3 chronic kidney disease, unspecified whether stage 3a or 3b CKD Yumiko Tavarez MD [address] [place] [address] [facility] [address] [place] [id number] Referral ID Status Reason Start Date Expiration Date V isits Requested Visits Authorized [id number] Closed Consult, Test & Treat PCP Updated and/or Approved 03/13/2022 09/09/2022 1 1 Encounter Details Date Type Department Care Team (Late st Contact Info) Description 08/14/2022 1:00 PM EDT Office Visit [place] [address] Neeraj Vasquez MD [facility] [address] Stage 3a chronic kidney disease; Hyperparathyroidism Social [...] Sign Reading Time Taken Comments Blood Pressure 109/75 08/14/2022 12:58 PM EDT Pulse 74 08/14/2022 12:58 PM EDT Temperature - - Respiratory Rate 20 08/14/2022 12:58 PM EDT Oxygen Saturation 100% 08/14/2022 12:58 PM EDT Inhaled Oxygen Concentration - - Weight 64 kg (141 lb) 08/14/2022 12:58 PM EDT Height 149.9 cm (4' 11) 08/14/2022 12:58 PM EDT Body Mass Index 28.48 08/14/2022 12:58 PM EDT documented in this encounter Progress Notes * Neeraj Vasquez MD - 08/14/2022 1:00 PM EDT [facility] 08/14/22 PRIMARY CARE PROVIDER: Yumiko Tavarez MD REFERRING PHYSICIAN: REASON FOR CONSULT: CKD stage III management HISTORY OF PRESENT ILLNESS: Miguelina Morales is a 57 y.o. F with PMH of tardive dyskinesia , PTSD , anxiety , CKD III ,who isseen in consultation for cKD stage IIII management Reports she saw kidney doctor here few years before for CKD and lost follow up . Also reports she took naproxen for while at that time and it was over the counter then . And that might have cause herkidney injury . Today reports difficult in initiating urination some time in day which started in 2007 . Denies burning urination , frequency / urgency /dribbling of urine , Denies excessive fatiigue , anorexia , nausea , vomiting , metalic taste ,Itching , easy bruising ,ecchymoses , chest pain , short of breath PAST MEDICAL HISTORY: Past Medical History: Diagnosis Date Anxiety Chronic kidney disease Neuropathy PAST SURGICAL HISTORY: Past Surgical History: Procedure Laterality Date SECTION CHOLECYSTECTOMY, LAPAROSCOPIC VERTEBROPLASTY MEDICATIONS: Current Outpatient Medications Medication Sig Dispense Refill clonazePAM (KlonoPIN) 1 mg tablet Take by mouth. 1.5 tabs in the morning and 1 tab in afternoon, and 1.5 tabs at night acetaminophen (Tylenol) 500 mg tablet Take 1,000 mg by mouth every 6 hours as needed for Pain. pregabalin (LYRICA) 200 mg Capsule Take 200 mg by mouth daily. 150 mg in the morning and 100mg in the evening naloxone (Narcan) 4 mg/actuation Clemons, Non-Aerosol 1 spray by Nasal route as needed. omeprazole (PRILOSEC) 20 mg Capsule, Delayed Release(E.C.) Take 20 mg by mouth as needed. folic acid (FOLVITE) 1 mg Tablet Take 1 mg by mouth daily. cyanocobalamin 1,000 mcg Tablet Take 1,000 mcg by mouth daily. calcium carbonate (TUMS) 200 mg calcium (500 mg) Tablet, Chewable Take 2 tablets by mouth 2 times daily. cholecalciferol, Vitamin D3, 50,000 unit Capsule Take 50,000 Units by mouth once a week. zolpidem (AMBIEN) 10 mg Tablet Take 10 mg by mouth nightly. oxyCODONE-acetaminophen (PERCOCET) 10-325 mg Tablet Take 1 tablet by mouth every 6 hours as needed for Pain. No current facility-administered medications for this visit. ALLERGIES/ADVERSE REACTIONS: Allergies Allergen Reactions Mirtazapine Other (See Comments) Patient reports heart races and jittery feeling. Visible quivering extremities. Antihistamines - Alkylamine Gabapentin Histamine Novocain [Procaine] Excessive shaking FAMILY HISTORY: Family History Relation Problem Age of Onset Father Mental Illness Tremor Mother Alcohol Use Disorder Cancer Depression SOCIAL HISTORY: Social History Social History Narrative Not on file REVIEW OF SYSTEMS: Ten systems reviewed and negative except as noted in the HPI and PMHx. PHYSICAL EXAMINATION: There were no vitals filed for this visit. There is no height or weight on file to calculate BMI. Genera ; Pleasant and cooperative. HEENT - No icterus or conjunctival injection. Moist mucous membranes. Neck - Supple. No lymphadenopathy. Respiratory - Lungs are clear to auscultation bilaterally. Cardiovascular - regular S1 and S2 are present. No murmurs, rubs, or gallops. Abdomen - Bowel sounds present. Soft, nontender. Extremities - No edema. Musculoskeletal - No joint tenderness or swelling. Neuro : tremor mostly right hand , gait instability LABORATORY STUDIES: Urine sediment - Urinalysis - No results found for this or any previous visit (from the past 170 hour(s)). Creatinine (mg/dL) Date Value 11/20/2016 1.12 ASSESSMENT AND PLAN: 57 y.o. * CKD STAGE III : appear renal function is improved Cr : 1.14 eGFR : 55 . NO proteinuria Proteinuria * Anemia - Hb : 12.4 Goal Hb : 10 - 11gm/dl. Ferritin >100ng/ml. TSAT>20% ( * CKD-MBD Stage III CKD PTH : 35 -70 pg/ml Calcium :.Phosphorus within normal limit 31-IO-Ibdtmnz D adequate : PTH : 73 * Acid-base status - HCO3 :28 * Electrolytes - normal * Hemodynamics : BP : 109/75, HR 74 . Volume status : appears euvolemic. Risk factor for worsening renal function discussed . Avoid NSAIDs ,Herbal medications,and over the counter medications Healthy diet with plenty of fruit and vegetables and regular exercise as tolerated Return to clinic 3 month Plan : Repeat lab including PTH Renal sonogram Neeraj Vasquez. [facility] [place] [address] * Efren Suh MD - 08/14/2022 1:00 PM EDT Renal Staff Addendum Patient seen and examined with Dr. Vasquez. I agree with the above note which represents our joint assessment and plan with the following additions: Stage 3 CKD felt secondary to NSAIDS. Cr stable, BP well controlled off medications. PTH is essentially at goal with adequate vit D stores. Avoid further NSAIDS. F/u 3 months. documented in this encounter Plan of Treatment Upcoming Encounters Date Type Department Care Team (Latest Contact Info) Description 09/24/2023 10:00 AM EDT Laboratory Appointment Lab [address] [place] [address] 09/24/2023 11:30 AM EDT Office Visit [place] [address] Neniat Grimes APRN [facility] [place] [address] documented as of this encounter Results * (ABNORMAL) Urinalysis without microscopic (08/14/2022 12:24 PM EDT) Glucose UA Negative Negative mg/dL [facility] Protein UA Negative Negative mg/dL [facility] Bilirubin UA Negative Negative mg/dL [facility] Comment: Clinical correlation required for positive Urine Bilirubin results as false positive may occur with some drugs and drug related products. If a false positive is suspected a serum total bilirubin should be considered if clinically indicated. Urobilinogen UA Normal Normal mg/dL [facility] pH UA 6.0 5.0 - 8.0 [facility] Blood UA Small(A) Negative mg/dL [facility] Ketones UA Negative Negative mg/dL [facility] Nitrite UA Negative Negative [facility] Leukocytes UA Negative Negative mcL [facility] Appearance UA Clear Clear [facility] Spec Shanks UA 1.010 1.005 - 1.030 [facility] Color UA Yellow Yellow [facility] Urine 08/14/2022 12:2 4 PM EDT 08/14/2022 12:33 PM EDT Narrative Resulting Agency Comment Spec In Lab Efren Suh MD URINE ORDERABLES [facility] [place] [address] * Vitamin D, 25-Hydroxy (08/14/2022 11:52 AM EDT) 25-OH Vit D Total 40 21 - 100 ng/mL [facility] 25-OH Vit D Interp Sufficient [facility] Blood 08/14/2022 11:5 2 AM EDT 08/14/2022 11:59 AM EDT Narrative Resulting Agency Comment Spec In Lab Efren Suh MD CHEMISTRY ORDERABLES Performing Organization Address [facility] Co de Phone Number [facility] [place] [address] * Phosphorus (08/14/2022 11:52 AM EDT) Phosphorus 4.2 2.5 - 4.5 mg/dL [facility] Blood 08/14/2022 11:5 2 AM EDT 08/14/2022 11:59 AM EDT Narrative Resulting Agency Comment Spec In Lab Efren Suh MD CHEMISTRY ORDERABLES Performing Organization Address [facility] Co de Phone Number [facility] [place] [address] * Calcium (08/14/2022 11:52 AM EDT) Calcium 9.6 8.5 - 10.5 mg/dL [facility] Blood 08/14/2022 11:5 2 AM EDT 08/14/2022 11:59 AM EDT Narrative Resulting Agency Comment Spec In Lab Efren Suh MD CHEMISTRY ORDERABLES Performing Organization Address City/[facility] Co de Phone Number [facility] [place] [address] * (ABNORMAL) PTH (08/14/2022 11:52 AM EDT) PTH 76(H) 15 - 65 pg/mL [facility] Blood 08/14/2022 11:5 2 AM EDT 08/14/2022 11:59 AM EDT Narrative Resulting Agency Comment Spec In Lab Efren Suh MD CHEMISTRY ORDERABLES [facility] [place] [address] * (ABNORMAL) Basic Metabolic Panel (non-fasting) (08/14/2022 11:52 AM EDT) Glucose Lvl 82 65 - 199 mg/dL [facility] Comment:Diabetes: >=200 mg/d L plus symptoms BUN 13 8 - 18 mg/dL [facility] Creatinine 1.14 0.70 - 1.20 mg/dL [facility] Sodium 141 135 - 145 mmol/L [facility] Potassium 4.5 3.5 - 5.0 mmol/L [facility] Comment: Please note: ??Patients with WBC >100,000 may have falsely elevated Potassium levels. ??For accurate Potassium quantification in these patients send serum separator tube (gold top) for subsequent determinations. ??Contact the Clinical Chemistry Laboratory if there are any questions. Chloride 103 98 - 107 mmol/L [facility] CO2 28 22 - 31 mmol/L [facility] Anion Gap 10 5 - 15 mmol/L [facility] Calcium 9.6 8.5 - 10.5 mg/dL [facility] Estimated GFR 55(L) >=60 mL/min/1. 73 m?? [facility] Comment: This patient's estimated GFR [...] and symptoms in addition to eGFR. Blood 08/14/2022 11:5 2 AM EDT 08/14/2022 11:59 AM EDT Narrative Resulting Agency Comment Spec In Lab Efren Suh MD CHEMISTRY ORDERABLES [facility] [place] [address] documented in this encounter Visit Diagnoses Diagnosis Stage 3a chronic kidney disease Hyperparathyroidism Hyperparathyroidism, unspecified Stage 3a chronic kidney disease documented in this encounter Care Teams We[employer] Relationship Specialty Start Date End Date Yumiko Tavarez MD [address] [place] [id number] PCP - General Family Medicine 07/07/16 documented as of this encounter
--- OUTSIDE RECORDS SUMMARY | 2023-09-21 17:03 | XMS_ITS | Encounter Summary ---
Author Organization [facility] [place] [address] Care Team Providers Care Neurological Surgeon Name Role Phone Yumiko Tavarez MD Primary Care Provider [phone] Reason for Visit * Reason Onset Date Comments Other 11/08/2018 Encounter Details Date Type Department Care Team (Late st Contact Info) Description 11/08/2018 Telephone Neurology at [facility] [place] [id number] Razia Mims [place] [address] Other Social History Tobacco Use Types Packs/Day [...] encounter Miscellaneous Notes * Telephone Encounter - Rita Smith, RN - 11/20/2018 8:54 AM EDT Returned call to Miguelina. Per Dr. Mims: It would be the tetrabenazine but I can't start it without having a baseline EKG. I can order it but she lives in [place], [place] so I am wondering if she has a local hospital where she would want us to send the order. Miguelina says she can use [facility]. Patient also says that she has had [...] list. Prepped EKG order to go to [facility], will forward to physician. * Telephone Encounter - Rita Smith RN - [...] other questions or concerns at this time. * Telephone Encounter - Brenda Solo - 11/08/2018 3:19 PM EDT Clinical Sand Temperer Message Caller: Miguelina Call back Number: [phone] Reason for call: patient calling to give [...] 10:00 AM EDT Laboratory Appointment Lab [address] [place] [address] 09/24/2023 11:30 AM EDT Office Visit [place] [address] Nenita Grimes APRN [facility] [place] [address] documented as of this encounter Visit Diagnoses Diagnosis Primary parkinsonism Paralysis agitans Tremors of nervous system Abnormal involuntary movements Screening procedure Screening for unspecified condition Stage 3a chronic kidney disease documented in this encounter Care Teams Neurological Surgeon Relationship Specialty Start Date End Date Yumiko Tavarez MD [address] [place] [address] PCP - General Family Medicine 07/07/16 documented as of this encounter
--- OUTSIDE RECORDS SUMMARY | 2023-09-21 17:03 | XMS_ITS | Encounter Summary ---
Author Organization [facility] [address] Care Team Providers Care Kitchen Food Server Name Role Phone Yumiko Tavarez MD Primary Care Provider [phone] Encounter Details Date Type Department Care Team (Latest Contact Info) Description 05/08/2023 2:30 PM EST Office Visit [place] [address] Nenita Grimes, RETAIL WAREHOUSE SUPERVISOR [facility] [place] [address] Stage 3b chronic kidney disease; Hyperparathyroidism Social History Tobacco [...] Sign Reading Time Taken Comments Blood Pressure 105/69 05/08/2023 2:35 PM EST Pulse 67 05/08/2023 2:35 PM EST Temperature - - Respiratory Rate - - Oxygen Saturation - - Inhaled Oxygen Concentration - - Weight 60.3 kg (133 lb) 05/08/2023 2:35 PM EST Height 149.9 cm (4' 11) 05/08/2023 2:35 PM EST Body Mass Index 26.86 05/08/2023 2:35 PM EST documented in this encounter Progress Notes * CornelioNenita, RETAIL WAREHOUSE SUPERVISOR - 05/08/2023 2:30 PM EST Images from the original note were not included. [facility] NEPHROLOGY/HYPERTENSION CLINIC FOLLOW-UP NOTE [id number] ID: 58 y.o.year-old female seen for follow up of CKD. Past Medical History: Patient Active Problem List Diagnosis Code Chronic pain syndrome G89.4 Chorea G25.5 Primary parkinsonism G20.C Anxiety F41.9 Functional neurological symptom disorder with abnormal movement F44.4 Peripheral neuropathy G62.9 PTSD (post-traumatic stress disorder) F43.10 Tardive dyskinesia G24.01 Stage 3a chronic kidney disease N18.31 Hyperparathyroidism E21.3 Outpatient Encounter Medications as of 05/08/2023 Medication Sig Dispense Refill clonazePAM (KlonoPIN) 1 mg tablet Take by mouth. 1.5 tabs in the morning and 1 tab in afternoon, and 1.5 tabs at night acetaminophen (Tylenol) 500 mg tablet Take 1,000 mg by mouth every 6 hours as needed for Pain. pregabalin (LYRICA) 200 mg Capsule Take by mouth daily. 150 mg in the morning and 100mg in the evening naloxone (Narcan) 4 mg/actuation [place], Non-Aerosol 1 spray by Nasal route as [...] 6 hours as needed for Pain. No facility-administered encounter medications on file as of 05/08/2023. Allergies Allergen Reactions Mirtazapine Other (See Comments) Patient reports heart races and jittery feeling. Visible quivering extremities. Antihistamines - Alkylamine Gabapentin Histamine Novocain [Procaine] Excessive shaking S: The patient presented today stated that she is generally doing well, but has been experiencing morefatigue than usual. She reported smoking one pack of cigarettes daily. She further denies any symptoms of lightheadedness, dizziness, headaches, shortness of breath, chest pain, or pressure. Her appetite has been good, and she makes a consistent effort to stay hydrated. The patient shared that she has been experiencing an altered urinary pattern for decades which has worsened in the last 5 years and continues treatment with a physical therapist for pelvic floor exercises. She has completed one session and has another scheduled for May 13. The patient denies any changes in the color, smell, or frequency of her urine and is currently receiving care from a [facility] urology however she is unable to clearly state the exact problem being addressed. Use of NSAIDs:Denies use Herbal supplements:Denies use O: Vitals: 05/08/23 1435 BP: 105/69 Pulse: 67 Weight: 60.3 kg (133 lb) Height: 149.9 cm (4' 11) General: NAD, arrived ambulant. HEENT: Sclera white, mucous membranes moist, no lymphadenopathy. CV: S1 and S2. HR regular. JVP not elevated. Resp: Lungs clear with no crackles or wheezes, respirations non labored. Abd: Soft. + BS, no bruit, non tender. Ext:Warm, no cyanosis, no edema. Skin: No rashes. Neuro: A&O x4 Psych: Mood appropriate Labs: Recent Results (from the past 72 hour(s)) Phosphorus Result Value Ref Range Phosphorus 3.6 2.5 - 4.5 mg/dL Uric acid Result Value Ref Range Uric Acid 6.8 (H) 2.5 - 6.5 mg/dL Albumin Level Result Value Ref Range Albumin 4.1 3.2 - 5.2 g/dL PTH Result Value Ref Range PTH 84 (H) 15 - 65 pg/mL Basic Metabolic Panel (non-fasting) Result Value Ref Range Glucose Lvl 89 65 - 199 mg/dL BUN 11 8 - 18 mg/dL Creatinine 1.45 (H) 0.70 - 1.20 mg/dL Sodium 140 135 - 145 mmol/L Potassium 4.0 3.5 - 5.0 mmol/L Chloride 102 98 - 107 mmol/L CO2 29 22 - 31 mmol/L Anion Gap 9 5 - 15 mmol/L Calcium 9.2 8.5 - 10.5 mg/dL Estimated GFR 41 (L) >=60 mL/min/1.73 m?? Hemogram Result Value Ref Range WBC 6.0 4.0 - 9.5 x10(3)/mcL RBC 3.94 (L) 4.00 - 5.21 x10(6)/mcL Hemoglobin 12.9 11.7 - 15.5 g/dL Hematocrit 39.0 35.7 - 45.8 % MCV 99.0 (H) 82.6 - 94.4 fL MCH 32.7 (H) 27.1 - 32.0 pg MCHC 33.1 31.7 - 35.0 g/dL Platelets 207 145 - 357 x10(3)/mcL RDWSD 42.5 37.0 - 46.0 fL RDWCV 11.7 11.5 - 14.1 % MPV 10.9 7.6 - 12.9 fL nRBC % Auto 0.0 % nRBC Abs Auto 0.000 0.000 - 0.000 x10(3)/mcL Differential, Automated Result Value Ref Range Neutrophils % 51.6 % Neutr Abs (ANC) 3.08 1.70 - 6.10 x10(3)/mcL Lymphocytes % 39.8 % Lymphocytes Abs 2.4 0.9 - 3.2 x10(3)/mcL Monocytes % 6.9 % Monocyte Abs 0.4 0.3 - 0.9 x10(3)/mcL Eosinophils % 1.2 % Eosinophils Abs 0.1 0.0 - 0.4 x10(3)/mcL Basophils % 0.3 % Basophils Abs 0.0 0.0 - 0.1 x10(3)/mcL Immature Gran % 0.20 % Kimberly Gran Abs 0.01 0.00 - 0.04 x10(3)/mcL _Urinalysis with microscopic Result Value Ref Range Glucose UA Negative Negative mg/dL Protein UA Negative Negative mg/dL Bilirubin UA Negative Negative mg/dL Urobilinogen UA Normal Normal mg/dL pH UA 5.5 5.0 - 8.0 Blood UA Small (A) Negative mg/dL Ketones UA Negative Negative mg/dL Nitrite UA Negative Negative Leukocytes UA Negative Negative mcL Appearance UA Clear Clear Spec [place] UA 1.016 1.005 - 1.030 Color UA Yellow Yellow RBC UA 2 0 - 4 /HPF WBC UA 1 0 - 5 /HPF Squam Epith UA 1 <=4 /HPF Creatinine (mg/dL) Date Value 05/08/2023 1.45 (H) 01/02/2023 1.27 (H) 08/14/2022 1.14 11/20/2016 1.12 A/P: Miguelina Morales is a 58 y.o. year old female seen today for follow of CKD CKD stage 3: Serum Creatinine 1.45, eGFR 41 During Ms. Morales's last three medical evaluations, her creatinine levels have been increasing, but the underlying cause is not apparent. She has not undergone any recent surgical procedures, nor has she been hospitalized. Furthermore, there is no history of any new medications. Although Ms. Morales has been taking a PPI for an extended period, it is unlikely that this medication is the cause of the increase in her creatinine levels given the timeline of this medication. It is unclear why she is seeing [facility] urology, and I will need to contact them for further information to rule out any potential link to kidney-related issues. It is worth noting that there is no evidence of proteinuria, and her blood pressure is well-controlled. Additionally, she does not exhibit any symptoms of anemia, acidosis, or abnormal sodium or potassium levels. However, mild hyperparathyroidism was detected, and her sodium and potassium levels remain within normal limits. Due to the increasing trend in her creatinine levels, we discussed the possibility of a renal biopsy to explore possible causes and obtain a definitive diagnosis. However, given the size of her kidney, a renal biopsy may not be possible. As such, I will discuss this further with our department attendings to obtain guidance and approvalfor the procedure. Ms. Morales understands the situation, and she has agreed to undergo a renal biopsy if necessary. -Avoid NSAIDs -Adequate Hydration, urine Return to clinic 3 months with labs or sooner if needed for new or worsening symptoms Encouraged her to let me know if she has any questions or concerns in the interim. 40 minutes spent seeing the patient, reviewing the chart, and coordination of care. Nenita Grimes APRN [facility] [address] 2nd floor, Patch Press Operator [address] [place] [address] CC: Yumiko Tavarez MD [email or web address] documented in this encounter Plan of Treatment Upcoming Encounters Date Type Department Care Team (Latest Contact Info) Description 09/24/2023 10:00 AM EDT Laboratory Appointment Lab [address] [place] [phone] 09/24/2023 11:30 AM EDT Office Visit [place] [phone] Nenita Grimes APRN [facility] [place] [address] Scheduled Orders Name Type Priority Associated Diagnoses Orde r Schedule Basic Metabolic Panel (non-fasting) Lab Routine Stage 3b chronic kidney disease Expected: 05/07/2023, Expires: 05/06/2024 CBC (with Diff) Lab Routine Stage 3b chronic kidney disease Expected: 05/07/2023, Expires: 05/06/2024 Vitamin D, 25-Hydroxy Lab Routine Stage 3b chronic kidney disease Expected: 05/07/2023, Expires: 05/06/2024 Uric acid Lab Routine Stage 3b chronic kidney disease Expected: 05/07/2023, Expires: 05/06/2024 Phosphorus Lab Routine Stage 3b chronic kidney disease Expected: 05/07/2023, Expires: 05/06/2024 Phosphorus Lab Routine Stage 3b chronic kidney disease Expected: 05/07/2023, Expires: 05/06/2024 documented as of this encounter Results * Protein/Creatinine Ratio, urine (05/08/2023 2:02 PM EST) U Creatinine 128 mg/dL [facility] U Protein Ran <6 0 - 12 mg/dL [facility] Prot/Cre Ratio <0.1 ratio [facility] Urine 05/08/2023 2:02 PM EST 05/08/2023 2:17 PM EST Narrative Resulting Agency Comment Spec In Lab Nenita Grimes APRN URINE ORD ERABLES Performing Organization Address City/[facility]/ZIP Co de Phone Number [facility] [place] [address] * U Albumin/Cre Ratio (05/08/2023 2:02 PM EST) Alb/Cr Ratio, Random Not Calculated 0 - 29 mcg/mg Cr [facility] Comment: Reference Ranges: <30 mcg/mg: [...] 362 U Albumin Conc, Random <3.0 mg/L [facility] U Creatinine 128 mg/dL [facility] Urine 05/08/2023 2:02 PM EST 05/08/2023 2:17 PM EST Narrative Resulting Agency Comment Spec In Lab Nenita Leach Cornelio LERNER URINE ORD ERABLES [facility] [place] [address] * (ABNORMAL) _Urinalysis with microscopic (05/08/2023 2:02 PM EST) Glucose UA Negative Negative mg/dL [facility] Protein UA Negative Negative mg/dL [facility] Bilirubin UA Negative Negative mg/dL [facility] Comment: Clinical correlation required for positive Urine Bilirubin results as false positive may occur with some drugs and drug related products. If a false positive is suspected a serum total bilirubin should be considered if clinically indicated. Urobilinogen UA Normal Normal mg/dL [facility] pH UA 5.5 5.0 - 8.0 [facility] Blood UA Small(A) Negative mg/dL [facility] Ketones UA Negative Negative mg/dL [facility] Nitrite UA Negative Negative [facility] Leukocytes UA Negative Negative mcL [facility] Appearance UA Clear Clear [facility] Spec [place] UA 1.016 1.005 - 1.030 [facility] Color UA Yellow Yellow [facility] RBC UA 2 0 - 4 /HPF [facility] WBC UA 1 0 - 5 /HPF [facility] Squam Epith UA 1 <=4 /HPF [facility] Urine 05/08/2023 2:02 PM EST 05/08/2023 2:17 PM EST Narrative Resulting Agency Comment Spec In Lab Nenita Grimes RETAIL WAREHOUSE SUPERVISOR URINE ORD ERABLES [facility] [place] [address] documented in this encounter Visit Diagnoses Diagnosis Stage 3b chronic kidney disease Hyperparathyroidism Hyperparathyroidism, unspecified Stage 3a chronic kidney disease documented in this encounter Care Teams Kitchen Food Server Relationship Specialty Start Date End Date Yumiko Tavarez MD [address] [place] [address] PCP - General Family Medicine 07/07/16 documented as of this encounter
--- OUTSIDE RECORDS SUMMARY | 2023-09-21 17:03 | XMS_ITS | Encounter Summary ---
Author Organization [facility] [place] [address] Care Team Providers Care Surface Mount Technology Operator Name Role Phone Yumiko Tavarez MD Primary Care Provider [phone] Encounter Details Date Type Department Care Team (Latest Contact Info) Description 01/02/2023 1:00 PM EDT Laboratory Appointment Lab [address] [place] [phone] Chronic kidney disease, unspecified CKD stage Social History Tobacco Use Types Packs/Day Years [...] 10:00 AM EDT Laboratory Appointment Lab [address] [place] [phone] 09/24/2023 11:30 AM EDT Office Visit [place] [address] Nenita Grimes APRN [facility] [place] [address] documented as of this encounter Procedures Procedure Name Priority Date/Time Associated Diagnosis Comments HC URINALYSIS ROUTINE Routine 01/02/2023 1:26 PM EDT Chronic kidney disease, unspecified CKD stage HC PROTEIN, QUANTITATIVE, URINE Routine 01/02/2023 1:26 PM EDT Chronic kidney disease, unspecified CKD stage HC MICROALBUMIN, URINE Routine 01/02/2023 1:26 PM EDT Chronic kidney disease, unspecified CKD stage HC PARATHYROID HORMONE(PTH INTACT Routine 01/02/2023 1:18 PM EDT Chronic kidney disease, unspecified CKD stage HEMOGRAM Routine 01/02/2023 1:18 PM EDT Chronic kidney disease, unspecified CKD stage DIFFERENTIAL, AUTOMATED Routine 01/02/2023 1:18 PM EDT Chronic kidney disease, unspecified CKD stage HC VITAMIN D TOTAL-25 HYDROXY Routine 01/02/2023 1:18 PM EDT Chronic kidney disease, unspecified CKD stage HC CBC,PLT & AUTO DIFF Routine 01/02/2023 1:18 PM EDT Chronic kidney disease, unspecified CKD stage HC PHOSPHORUS, SERUM Routine 01/02/2023 1:18 PM EDT Chronic kidney disease, unspecified CKD stage HC VENIPUNCTURE Routine 01/02/2023 1:18 PM EDT Chronic kidney disease, unspecified CKD stage BASIC METABOLIC PANEL (NON-FASTING) Routine 01/02/2023 1:18 PM EDT Chronic kidney disease, unspecified CKD stage documented in this encounter Results * Protein/Creatinine Ratio, urine (01/02/2023 1:26 PM EDT) U Creatinine 152 mg/dL [facility] U Protein Ran 7 0 - 12 mg/dL [facility] Prot/Cre Ratio <0.1 ratio [facility] Urine 01/02/2023 1:26 PM EDT 01/02/2023 1:38 PM EDT Narrative Resulting Agency Comment Spec In Lab Nenita Grimes HARVESTER OPERATOR URINE ORD ERABLES [facility] [place] [address] * (ABNORMAL) _Urinalysis with microscopic (01/02/2023 1:26 PM EDT) Glucose UA Negative Negative mg/dL [facility] Protein UA Negative Negative mg/dL [facility] Bilirubin UA Negative Negative mg/dL [facility] Comment: Clinical correlation required for positive Urine Bilirubin results as false positive may occur with some drugs and drug related products. If a false positive is suspected a serum total bilirubin should be considered if clinically indicated. Urobilinogen UA Normal Normal mg/dL [facility] pH UA 5.5 5.0 - 8.0 [facility] Blood UA Moderate(A) Negative mg/dL [facility] Ketones UA Negative Negative mg/dL [facility] Nitrite UA Negative Negative [facility] Leukocytes UA Negative Negative mcL [facility] Appearance UA Clear Clear [facility] Spec [place] UA 1.016 1.005 - 1.030 [facility] Color UA Yellow Yellow [facility] RBC UA 3 0 - 4 /HPF [facility] WBC UA 1 0 - 5 /HPF [facility] Bacteria UA Occasional( A) None /HPF [facility] Squam Epith UA 4 <=4 /HPF [facility] Hyaline Cast UA 5(H) 0 - 2 /LPF [facility] Urine 01/02/2023 1:26 PM EDT 01/02/2023 1:38 PM EDT Narrative Resulting Agency Comment Spec In Lab Nenita Grimes HARVESTER OPERATOR URINE ORD ERABLES Performing Organization Address City/[facility]/ZIP Co de Phone Number [facility] [place] [address] * U Albumin/Cre Ratio (01/02/2023 1:26 PM EDT) Alb/Cr Ratio, Random 3 0 - 29 mcg/mg Cr [facility] Comment: Reference Ranges: <30 mcg/mg: Normal [...] 2, 357? 362 U Albumin Conc, Random 3.9 mg/L [facility] U Creatinine 152 mg/dL [facility] Urine 01/02/2023 1:26 PM EDT 01/02/2023 1:38 PM EDT Narrative Resulting Agency Comment Spec In Lab Nenita Tamayoaraemeka ROBERTN URINE ORD ERABLES Performing Organization Address City/[facility]/ZIP Co de Phone Number [facility] [place] [address] * Differential, Automated (01/02/2023 1:18 PM EDT) Neutrophils % 56.6 % [facility] Neutr Abs (ANC) 3.39 1.70 - 6.10 x10(3)/[facility] Lymphocytes % 35.5 % [facility] Lymphocytes Abs 2.1 0.9 - 3.2 x10(3)/[facility] Monocytes % 6.4 % [facility] Monocyte Abs 0.4 0.3 - 0.9 x10(3)/[facility] Eosinophils % 0.8 % [facility] Eosinophils Abs 0.0 0.0 - 0.4 x10(3)/[facility] Basophils % 0.5 % [facility] Basophils Abs 0.0 0.0 - 0.1 x10(3)/[facility] Immature Gran % 0.20 % [facility] Comment: Immature granulocytes(IG's)percentage and absolute count will include metamyelocytes, myelocytes, and promyelocytes. Blood smears from CBCs yielding IG's will be scanned manually for concordance. If this scan disagrees with the automated IG or if promyelocytes are noted, a manual differential will be performed. Kimberly Gran Abs 0.01 0.00 - 0.04 x10(3)/[facility] Blood 01/02/2023 1:18 PM EDT 01/02/2023 1:26 PM EDT Narrative Resulting Agency Comment Spec In Lab Nenita Grimes HARVESTER OPERATOR HEMATOLOG Y ORDERABLES [facility] [place] [address] * (ABNORMAL) Hemogram (01/02/2023 1:18 PM EDT) WBC 6.0 4.0 - 9.5 x10(3)/[facility] RBC 3.96(L) 4.00 - 5.21 x10(6)/[facility] Hemoglobin 12.9 11.7 - 15.5 g/dL [facility] Hematocrit 39.0 35.7 - 45.8 % [facility] MCV 98.5(H) 82.6 - 94.4 fL [facility] MCH 32.6(H) 27.1 - 32.0 pg [facility] MCHC 33.1 31.7 - 35.0 g/dL [facility] Platelets 197 145 - 357 x10(3)/[facility] RDWSD 44.0 37.0 - 46.0 [facility] RDWCV 12.2 11.5 - 14.1 % [facility] MPV 11.1 7.6 - 12.9 [facility] nRBC % Auto 0.0 % [facility] nRBC Abs Auto 0.000 0.000 - 0.000 x10(3)/[facility] Blood 01/02/2023 1:18 PM EDT 01/02/2023 1:26 PM EDT Narrative Resulting Agency Comment Spec In Lab Nenita Grimes HARVESTER OPERATOR HEMATOLOG Y ORDERABLES Performing Organization Address City/[facility]/ZIP Co de Phone Number [facility] [place] [address] * Phosphorus (01/02/2023 1:18 PM EDT) Phosphorus 3.8 2.5 - 4.5 mg/dL [facility] Blood 01/02/2023 1:18 PM EDT 01/02/2023 1:26 PM EDT Narrative Resulting Agency Comment Spec In Lab Nenita Grimes APRN CHEMISTRY ORDERABLES Performing Organization Address City/[facility]/ZIP Co de Phone Number [facility] [place] [address] * (ABNORMAL) PTH (01/02/2023 1:18 PM EDT) PTH 118(H) 15 - 65 pg/mL [facility] Blood 01/02/2023 1:18 PM EDT 01/02/2023 1:26 PM EDT Narrative Resulting Agency Comment Spec In Lab Nenita Hany Cornelio LERNER CHEMISTRY ORDERABLES Performing Organization Address City/[facility]/ZIP Co de Phone Number [facility] [place] [address] * Vitamin D, 25-Hydroxy (01/02/2023 1:18 PM EDT) 25-OH Vit D Total 56 21 - 100 ng/mL [facility] 25-OH Vit D Interp Sufficient [facility] Blood 01/02/2023 1:18 PM EDT 01/02/2023 1:26 PM EDT Narrative Resulting Agency Comment Spec In Lab Nenita Hany Cornelio LERNER CHEMISTRY ORDERABLES Performing Organization Address [facility] [[email or web address]] Co de Phone Number [facility] [place] [address] * (ABNORMAL) Basic Metabolic Panel (non-fasting) (01/02/2023 1:18 PM EDT) Pathologist [facility] Glucose Lvl 95 65 - 199 mg/dL [facility] Comment:Diabetes: >=200 mg/d L plus symptoms BUN 13 8 - 18 mg/dL [facility] Creatinine 1.27(H) 0.70 - 1.20 mg/dL [facility] Sodium 141 135 - 145 mmol/L [facility] Potassium 4.4 3.5 - 5.0 mmol/L [facility] Comment: Please note: ??Patients with WBC >100,000 may have falsely elevated Potassium levels. ??For accurate Potassium quantification in these patients send serum separator tube (gold top) for subsequent determinations. ??Contact the Clinical Chemistry Laboratory if there are any questions. Chloride 104 98 - 107 mmol/L [facility] CO2 27 22 - 31 mmol/L [facility] Anion Gap 10 5 - 15 mmol/L [facility] Calcium 9.2 8.5 - 10.5 mg/dL [facility] Estimated GFR 49(L) >=60 mL/min/1. 73 m?? [facility] Comment: This patient's estimated GFR was [...] and symptoms in addition to eGFR. Blood 01/02/2023 1:18 PM EDT 01/02/2023 1:26 PM EDT Narrative Resulting Agency Comment Spec In Lab Nenita Grimes APRN CHEMISTRY ORDERABLES Performing Organization Address City/[facility]/ZIP Co de Phone Number [facility] [place] [address] * Albumin Level (01/02/2023 1:18 PM EDT) Albumin 4.0 3.2 - 5.2 g/dL [facility] Blood 01/02/2023 1:18 PM EDT 01/02/2023 1:26 PM EDT Narrative Resulting Agency Comment Spec In Lab Nenita Grimes APRN CHEMISTRY ORDERABLES Performing Organization Address City/[facility]/ZIP Co de Phone Number [facility] [place] [address] documented in this encounter Visit Diagnoses Diagnosis Chronic kidney disease, unspecified CKD stage Stage 3a chronic kidney disease documented in this encounter Care Teams Surface Mount Technology Operator Relationship Specialty Start Date End Date Yumiko Tavarez MD [address] [place] [address] PCP - General Family Medicine 07/07/16 documented as of this encounter
--- OUTSIDE RECORDS SUMMARY | 2023-09-21 17:03 | XMS_ITS | Encounter Summary ---
Author Organization [facility] Address [address] [place] [address] Care Team Providers Care Slat Basket Maker Machine Name Role Phone Unknown, Provider Primary Care Provider [phone] Encounter Details Date Type Department Care Team (Late st Contact Info) Description 01/19/2016 Results Only [facility]- [facility] [phone] Jerri Topete MD [address] [place] [address] [place] [address] Social History Tobacco Use Types Packs/Day Years [...] 02/13/2024 13:00 EST Office Visit [facility] Neurology - [address] [place], [place] [id number] Alta Walter MD [address] [place] [address] [address] [place] [phone] documented as of this encounter Procedures Procedure Name Priority Date/Time Associated Diagnosis Comments PAP TEST- RESULT ONLY Routine 01/19/2016 0:00 EST documented in this encounter Results * PAP TEST- RESULT ONLY (01/19/2016 0:00 EST) Pathology Report: CYTOPATHOLOGY REPORT Reports generated via electronic interface contain original data; however they are lacking the format of the original report. Caution should be taken when reading/interpreti ng unformatted reports. Name: ? CYDNEY ALMAZAN ? Accession #: ? [id number] ? : ? 1965 (Age: 50) ??F ?Collect Date: ? 01/19/2016 ? Location: ? [facility] ? Receive Date: ? 01/20/2016 ? Provider: JERRI TOPETE MD Copy to: REMINGTON LUJAN MD ? Final Report SPECIMEN ADEQUACY ? Satisfactory for Evaluation - transformation zone component absent GENERAL CATEGORIZATION ? Negative for Intraepithelial Lesion or Malignancy INTERPRETATION ? Shift in hollie present suggestive of bacterial vaginosis. Last Menstrual Period: Age 40 Specimen/Source: ??Pap Test, Cervix/Endocervix, ThinPrep Imaging System with manual evaluation Document reviewed and electronically signed by: ? DESIREE Galicia(ASCP) ? Report ??Date: 01/26/2016 09:52 HPV with Pap Test ? Date Ordered: ? 01/26/2016 ? Status: ?? Signed Out ?Date Complete: ? 01/31/2016 ? By: ??System Interface ? Date Reported: ? 01/31/2016 ? Interpretation RESULT: Negative for HPV. No E6 or E7 mRNA is detected from HPV types 16,18,31,33,35, 39,45,51,52,56,58, 59,66, and 68 by cast associate mediated amplification. Comments Document reviewed and electronically signed by: ? System Interface ? Report date: 01/31/2016 By the signature above, the attending physician certifies that he/she has personally conducted a gross and/or microscopic examination of the described specimens and rendered or confirmed the above diagnosis. End of Report [facility] 01/19/2016 01/20/2016 Jerri Topete MD PATHOLOGY ORDERABLES [facility] [address] [place] [address] documented in this encounter Visit Diagnoses Not on filedocumented in this encounter Care Teams Slat Basket Maker Machine Relationship Specialty Start Date End Date Unknown, ProviderMD PCP - General 08/05/08 12/28/19 documented as of this encounter
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
--- OUTSIDE RECORDS SUMMARY | 2023-09-21 17:03 | XMS_ITS | Encounter Summary ---
Author Organization [facility] [place] [address] Care Team Providers Care Fuel Yard Operator Name Role Phone Yumiko Tavarez MD Primary Care Provider Encounter Details Date Type Department Care Team (Late st Contact Info) Description 11/23/2022 Orders Only [place] [address] Ligia Chavis ELECTRIC METER TESTER [facility] [place] [address] Stage 3a chronic kidney disease Social History Tobacco Use Types Packs/Day Years [...] 10:00 AM EDT Laboratory Appointment Lab [address] [place] [address] 09/24/2023 11:30 AM EDT Office Visit [place] [address] Nenita Grimes ELECTRIC METER TESTER [facility] [address] [place], [place] [phone] documented as of this encounter Results * US Retroperitoneal Complete (01/02/2023 2:06 PM EDT) Anatomical Region Laterality Modality Abdomen Ultrasound 01/02/2023 2:02 PM EDT Impressions 01/02/2023 4:04 PM EDT 1. RIGHT kidney 8 cm. LEFT kidney, 8.6 cm. No hydronephrosis. Normal-appearing RIGHT and LEFT kidneys. No renal cysts stones or masses. Partially distended urinary bladder limited views. Electronically signed by: Rosalinda Gonzalez MD, [facility] ([phone]), at 01/02/2023 3:57 PM Thank you for letting us participate in the care of this patient. If you are a health care provider and have any questions regarding this report, please contact the number above. For patients who have questions, please contact the health healthcare liaison that requested your imaging first. ?Rosalinda Gonzalez, Staff Physician Electronically Signed Final Report ?? 01/02/2023 04:03 pm Narrative 01/02/2023 4:04 PM EDT Renal ? (Signed Final 01/02/2023 04:03 pm) PATIENT INFO: ID #: ? [id number] ?: ??[birth year] (57 yrs)(F) Name: ? CYDNEY S ? Visit Date: 01/02/2023 02:02 pm ? LARRY PERFORMED BY: Attending: ?Rosalinda Gonzalez MD. Performed By: ? Jany Avila RDMS Referred By: ?LIGIA CHAVIS Location: ? [place] SERVICE(S) PROVIDED: URETRO - Retroperitoneal Complete - [id number] ? [id number] INDICATIONS: 57 y.o. female CKD3, r/o anatomic contribution to CKD COMPARISON: No prior studies for comparison. RIGHT KIDNEY: Size (cm) ?L: ??8.0 Cortical Thickness: ?Normal Cortical Echogenicity: ?? Normal Hydronephrosis: ?No sonographic evidence LEFT KIDNEY: Size (cm) ?L: ??8.6 Cortical Thickness: ?Normal Cortical Echogenicity: ?? Normal Hydronephrosis: ?No sonographic evidence URINARY BLADDER: Pre-void (cm) ? L: ??1.7 ? AP: ??1.2 ? TV: ??3.4 Vol (ml): ?3.6 Comment: ?Not distended, patient voided prior to exam. ? Limited views. Procedure Note Rosalinda Gonzalez MD - 01/02/2023 Renal (Signed Final 01/02/2023 04:03 pm) PATIENT INFO: ID #: [id number] : [birth year] (57 yrs)(F) Name: CYDNEY Fuentes Visit Date: 01/02/2023 02:02 pm CHAMBERLAIN PERFORMED BY: Attending: Rosalinda Gonzalez MD Performed By: Jany Avila RDMS Referred By: LIGIA CHAVIS Location: [place] SERVICE(S) PROVIDED: URETRO - Retroperitoneal Complete - [id number] INDICATIONS: 57 y.o. female CKD3, r/o anatomic contribution to CKD COMPARISON: No prior studies for comparison. RIGHT KIDNEY: Size (cm) L: 8.0 Cortical Thickness: Normal Cortical Echogenicity: Normal Hydronephrosis: No sonographic evidence LEFT KIDNEY: Size (cm) L: 8.6 Cortical Thickness: Normal Cortical Echogenicity: Normal Hydronephrosis: No sonographic evidence URINARY BLADDER: Pre-void (cm) L: 1.7 AP: 1.2 TV: 3.4 Vol (ml): 3.6 Comment: Not distended, patient voided prior to exam. Limited views. IMPRESSION 1. RIGHT kidney 8 cm. LEFT kidney, 8.6 cm. No hydronephrosis. Normal-appearing RIGHT and LEFT kidneys. No renal cysts stones or masses. Partially distended urinary bladder limited views. Electronically signed by: Rosalinda Gonzalez MD, [facility] [place] ([phone]), at 01/02/2023 3:57 PM Thank you for letting us participate in the care of this patient. If you are a health care provider and have any questions regarding this report, please contact the number above. For patients who have questions, please contact the health healthcare liaison that requested your imaging first. Rosalinda Gonzalez, Staff Physician Electronically Signed Final Report 01/02/2023 04:03 pm Ligia Chavis APRN IMG US GEN ORDERABLE S documented in this encounter Visit Diagnoses Diagnosis Stage 3a chronic kidney disease Stage 3a chronic kidney disease Stage 3a chronic kidney disease documented in this encounter Care Teams Fuel Yard Operator Relationship Specialty Start Date End Date Yumiko Tavarez MD [address] [place] [address] PCP - General Family Medicine 07/07/16 documented as of this encounter
--- OUTSIDE RECORDS SUMMARY | 2023-09-21 17:03 | XMS_ITS | Encounter Summary ---
Author Organization [facility] [place] [address] Care Team Providers Care Soccer Coach Name Role Phone Yumiko Tavarez MD Primary Care Provider [phone] Encounter Details Date Type Department Care Team (Latest Contact Info) Description 01/02/2023 1:30 PM EDT - 01/02/2023 11:59 PM EDT Hospital [place] [phone] Ligia Chavis APRN [facility] [place] [address] Stage 3a chronic kidney disease Discharge Disposition: Home Social History Tobacco Use Types Packs/Day Years [...] Dispensed Refills Start Date End Date clonazePAM (KlonoPIN) 1 mg tablet Take by mouth. 1.5 tabs in the morning and 1 tab in afternoon, and 1.5 tabs at night 06/22/2022 acetaminophen (Tylenol) 500 mg tablet Take 1,000 mg by mouth every 6 hours as needed for Pain. pregabalin (LYRICA) 200 mg Capsule Take by mouth daily. 150 mg in the morning and 100mg in the evening naloxone (Narcan) 4 mg/actuation [place], Non-Aerosol 1 spray by Nasal route as needed. omeprazole (PRILOSEC) 20 mg Capsule, Delayed Release(E.C.) Take 20 mg by mouth as needed. 07/24/2017 folic acid (FOLVITE) 1 mg Tablet Take [...] every 6 hours as needed for Pain. documented as of this encounter Plan of Treatment Upcoming Encounters Date Type Department Care Team (Latest Contact Info) Description 09/24/2023 10:00 AM EDT Laboratory Appointment Lab [address] [place] [address] 09/24/2023 11:30 AM EDT Office Visit [place] [address] Nenita Grimes, [employer] [facility] [place] [address] documented as of this encounter Procedures Procedure Name Priority Date/Time Associated Diagnosis Comments US RETROPERITONEAL COMPLETE Routine 01/02/2023 2:06 PM EDT Stage 3a chronic kidney disease documented in this encounter Results * US Retroperitoneal Complete (01/02/2023 2:06 PM EDT) Anatomical Region Laterality Modality Abdomen Ultrasound 01/02/2023 2:02 PM EDT Impressions 01/02/2023 4:04 PM EDT 1. RIGHT kidney 8 cm. LEFT kidney, 8.6 cm. No hydronephrosis. Normal-appearing RIGHT and LEFT kidneys. No renal cysts stones or masses. Partially distended urinary bladder limited views. Thank you for letting us participate in the care of this patient. If you are a health care provider and have any questions regarding this report, please contact the number above. For patients who have questions, please contact the health career development coordinator that requested your imaging first. ?Rosalinda Gonzalez, Staff Physician Electronically Signed Final Report ?? 01/02/2023 04:03 pm Narrative 01/02/2023 4:04 PM EDT Renal ? (Signed Final 01/02/2023 04:03 pm) PATIENT INFO: ID #: ? [id number] ?: ??[birth year] (57 yrs)(F) Name: ? CYDNEY S ? Visit Date: 01/02/2023 02:02 pm ? LARRY PERFORMED BY: Attending: ?Lisa PETTY, Rosalinda Beth Performed By: ? Jany Avila RDMS Referred By: ?LIGIA CHAVIS Location: ? [place] SERVICE(S) PROVIDED: URETRO - Retroperitoneal Complete - [id number] ? [id number] INDICATIONS: 57 y.o. female CKD3, r/o anatomic [...] 01/02/2023 04:03 pm) PATIENT INFO: ID #: [id number] : [birth year] (57 yrs)(F) Name: CYDNEY Fuentes Visit Date: 01/02/2023 02:02 pm LARRY PERFORMED BY: Attending: Rosalinda Gonzalez MD Performed By: Jany Avila RDMS Referred By: LIGIA CHAVIS Location: [place] SERVICE(S) PROVIDED: URETRO - Retroperitoneal Complete - [id number] INDICATIONS: 57 y.o. female CKD3, r/o anatomic [...] masses. Partially distended urinary bladder limited views. Thank you for letting us participate in the care of this patient. If you are a health care provider and have any questions regarding this report, please contact the number above. For patients who have questions, please contact the health career development coordinator that requested your imaging first. Rosalinda Gonzalez, Staff Physician Electronically Signed Final Report 01/02/2023 04:03 pm Ligia Chavis APRN IMG US GEN ORDERABLE S documented in this encounter Visit Diagnoses Diagnosis Stage 3a chronic kidney disease Stage 3a chronic kidney disease documented in this encounter Care Teams Soccer Coach Relationship Specialty Start Date End Date Yumiko Tavarez MD [address] [place] [address] PCP - General Family Medicine 07/07/16 documented as of this encounter
--- OUTSIDE RECORDS SUMMARY | 2023-09-21 17:03 | XMS_ITS | Encounter Summary ---
Author Organization [facility] [place] [address] Care Team Providers Care Product Inspection Coordinator Name Role Phone Yumiko Tavarez MD Primary Care Provider [phone] Reason for Visit * Reason Onset Date Comments Medication Refill 03/03/2019 Encounter Details Date Type Department Care Team (Late st Contact Info) Description 03/03/2019 [place] [phone] Razia Mims MD [facility] [place] [address] Social History Tobacco Use Types Packs/Day Years [...] 10:00 AM EDT Laboratory Appointment Lab [address] [place] [address] 09/24/2023 11:30 AM EDT Office Visit Nephrology [place] [address] Nenita Grimes, FAMILY HELPER [facility] [place] [address] documented as of this encounter Visit Diagnoses Not on filedocumented in this encounter Care Teams Product Inspection Coordinator Relationship Specialty Start Date End Date Yumiko Tavarez MD [address] [place] [address] PCP - General Family Medicine 07/07/16 documented as of this encounter
--- OUTSIDE RECORDS SUMMARY | 2023-09-21 17:03 | XMS_ITS | Encounter Summary ---
[place] [address] Care Team Providers Care Cotton Ginner Name Role Phone Yumiko Tavarez MD Primary Care Provider [phone] Encounter Details Date Type Department Care Team (Late st Contact Info) Description 11/22/2022 Orders Only [place] [phone] Ligia Lopez, [facility] [place] [address] Stage 3a chronic kidney disease; Hyperparathyroidism Social [...] 10:00 AM EDT Laboratory Appointment Lab [address] [place] [phone] 09/24/2023 11:30 AM EDT Office Visit [place] [phone] Nenita Grimes, CORPORATE COMPLIANCE DIRECTOR [facility] [address] [place], [place] [id number] documented as of this encounter Results * Vitamin D, 25-Hydroxy (05/08/2023 1:54 PM EST) 25-OH Vit D Total 47 21 - 100 ng/mL [facility] 25-OH Vit D Interp Sufficient [facility] Blood 05/08/2023 1:54 PM EST 05/08/2023 2:00 PM EST Narrative Resulting Agency Comment Spec In Lab Ligia Lopez APRN CHEMISTRY ORDERABLES Performing Organization Address City/[facility]/ZIP Co de Phone Number [facility] [place] [address] * Phosphorus (05/08/2023 1:54 PM EST) Pathologist [facility] [place] Phosphorus 3.6 2.5 - 4.5 mg/dL [facility] Blood 05/08/2023 1:54 PM EST 05/08/2023 2:00 PM EST Narrative Resulting Agency Comment Spec In Lab Ligia Lopez APRN CHEMISTRY ORDERABLES Performing Organization Address City/[facility]/ZIP Co de Phone Number [facility] [place] [address] * (ABNORMAL) Uric acid (05/08/2023 1:54 PM EST) Pathologist [facility] [place] Uric Acid 6.8(H) 2.5 - 6.5 mg/dL [facility] Blood 05/08/2023 1:54 PM EST 05/08/2023 2:00 PM EST Narrative Resulting Agency Comment Spec In Lab Ligia Lopze APRN CHEMISTRY ORDERABLES Performing Organization Address City/[facility]/ZIP Co de Phone Number [facility] [place] [address] * Albumin Level (05/08/2023 1:54 PM EST) Pathologist [facility] [place] Albumin 4.1 3.2 - 5.2 g/dL [facility] Blood 05/08/2023 1:54 PM EST 05/08/2023 2:00 PM EST Narrative Resulting Agency Comment Spec In Lab Ligia Lopez APRN CHEMISTRY ORDERABLES Performing Organization Address [facility]/ZIP Co de Phone Number [facility] [place] [address] * (ABNORMAL) PTH (05/08/2023 1:54 PM EST) [facility] PTH 84(H) 15 - 65 pg/mL [facility] Blood 05/08/2023 1:54 PM EST 05/08/2023 2:00 PM EST Narrative Resulting Agency Comment Spec In Lab Ligia Lopez APRN CHEMISTRY ORDERABLES Performing Organization Address [facility] Co de Phone Number [facility] [place] [address] * (ABNORMAL) Basic Metabolic Panel (non-fasting) (05/08/2023 1:54 PM EST) [facility] Glucose Lvl 89 65 - 199 mg/dL [facility] Comment:Diabetes: >=200 mg/d L plus symptoms BUN 11 8 - 18 mg/dL [facility] Creatinine 1.45(H) 0.70 - 1.20 mg/dL [facility] Sodium 140 135 - 145 mmol/L [facility] Potassium 4.0 3.5 - 5.0 mmol/L [facility] Comment: Please note: ??Patients with WBC >100,000 may have falsely elevated Potassium levels. ??For accurate Potassium quantification in these patients send serum separator tube (gold top) for subsequent determinations. ??Contact the Clinical Chemistry Laboratory if there are any questions. Chloride 102 98 - 107 mmol/L [facility] CO2 29 22 - 31 mmol/L [facility] Anion Gap 9 5 - 15 mmol/L [facility] Calcium 9.2 8.5 - 10.5 mg/dL [facility] Estimated GFR 41(L) >=60 mL/min/1. 73 m?? [facility] Comment: This patient's estimated GFR [...] Lopez APRN CHEMISTRY ORDERABLES Performing Organization Address City/State/[facility] Co de Phone Number [facility] [place] [address] documented in this encounter Visit Diagnoses Diagnosis Stage 3a chronic kidney disease Hyperparathyroidism Hyperparathyroidism, unspecified Stage 3a chronic kidney disease documented in this encounter Care Teams Cotton Ginner Relationship Specialty Start Date End Date Yumiko Tavarez MD [address] [place] [address] PCP - General Family Medicine 07/07/16 documented as of this encounter
--- OUTSIDE RECORDS SUMMARY | 2023-09-21 17:03 | XMS_ITS | Encounter Summary ---
Author Organization [facility] [place] [address] Care Team Providers Care Medical Lab Specialist Name Role Phone Yumiko Tavarez MD Primary Care Provider [phone] Encounter Details Date Type Department Care Team (Late st Contact Info) Description 12/07/2022 Telephone Neurology at [address] [phone] Razia Mims [place] [facility] [place] [address] Social History Tobacco Use Types Packs/Day Years [...] encounter Miscellaneous Notes * Telephone Encounter - Deena Victor RN - 12/07/2022 2:44 PM EDT I called Miguelina at her mobile number [phone]. Spoke with patient. Patient states her IRMA scan at in 2017 showed Parkinson's and her IRMA scan at [facility] in 2019 showed no Parkinson's. Pt looking forexplanation. Pt encouraged to speak with her neurologist at [facility] who did not have an explanation. Ptstated she had to go as she had to get on a zoom call with her [facility] neurologist. Pt stated she did not require follow-up. * Telephone Encounter - Noris Amin RN - 12/07/2022 10:27 AM EDT Copied from [facility] #[id number]. Topic: Specialty Dept CRMs - Test Results >> Dec 07, 2022 10:04 AM Chelsy Garcia wrote: Test Results Request Specialist: Prasanna Relationship (if other than patient-full name): self Ordering Provider: Razia Mims Type of Test: : DT Scan Date of Test: 01/10/2017- Patient states it has been bothering her as the results were confusing asthe other part says Head Parkinons and moderate decreased activity and some states severe decrease activity. Please call the patient back to discuss. Where Was This Test Performed: [facility] documented in this encounter Plan of Treatment Upcoming Encounters Date Type Department Care Team (Latest Contact Info) Description 09/24/2023 10:00 AM EDT Laboratory Appointment Lab [address] [place] [address] 09/24/2023 11:30 AM EDT Office Visit Neph[place] [address] Nenita Grimes APRN [facility] [place] [address] documented as of this encounter Visit Diagnoses Not on filedocumented in this encounter Care Teams Medical Lab Specialist Relationship Specialty Start Date End Date Yumiko Tavarez MD [address] [place] [address] PCP - General Family Medicine 07/07/16 documented as of this encounter
--- OUTSIDE RECORDS SUMMARY | 2023-09-21 17:03 | XMS_ITS | Encounter Summary ---
Author Organization [facility] [place] [address] Care Team Providers Care Split Leather Department Supervisor Name Role Phone Yumiko Tavarez MD Primary Care Provider [phone] Reason for Visit * Reason Onset Date Comments Medication Refill 04/02/2019 Encounter Details Date Type Department Care Team (Late st Contact Info) Description 04/02/2019 [place] [phone] Razia Mims MD [facility] [place] [address] Social History Tobacco Use Types Packs/Day Years [...] 10:00 AM EDT Laboratory Appointment Lab [address] [place] [address] 09/24/2023 11:30 AM EDT Office Visit [place] [address] Nenita Grimes, PUBLIC RELATIONS ANALYST [facility] [place] [address] documented as of this encounter Visit Diagnoses Not on filedocumented in this encounter Care Teams Split Leather Department Supervisor Relationship Specialty Start Date End Date Yumiko Tavarez MD [address] [place] [address] PCP - General Family Medicine 07/07/16 documented as of this encounter
--- OUTSIDE RECORDS SUMMARY | 2023-09-21 17:03 | XMS_ITS | Encounter Summary ---
[place] [address] Care Team Providers Care Timber Supervisor Name Role Phone Yumiko Tavarez MD Primary Care Provider [phone] Reason for Referral * Diagnostic Test (Routine) - New Request Specialty Diagnoses / Procedures Referred By Warren dennis Referred To Contact Diagnoses Stage 3a chronic kidney disease Procedures Duplex Study Renal Arteries, Bilat Herbie Grimes APRN [facility] [place] [address] [facility] [address] [place] [phone] Referral ID Status Reason Start Date Expiration Date Visits Requested Visits Authorized [id number] New Request Specialty Service Requested 3 01/12/2024 1 1 Encounter Details Date Type Department Care Team (Latest Contact Info) Description 01/02/2023 2:30 PM EDT Office Visit Ne[place] [address] Herbie Grimes APRN [facility] [place] [address] Stage 3a chronic kidney disease; PTSD (post-traumatic stress disorder); Hyperparathyroidism; Anxiety Social History Tobacco Use Types Packs/Day [...] Sign Reading Time Taken Comments Blood Pressure 103/70 01/02/2023 2:22 PM EDT Pulse 80 01/02/2023 2:22 PM EDT Temperature - - Respiratory Rate - - Oxygen Saturation - - Inhaled Oxygen Concentration - - Weight 62.1 kg (137 lb) 01/02/2023 2:22 PM EDT Height 149.9 cm (4' 11) 01/02/2023 2:22 PM EDT Body Mass Index 27.67 01/02/2023 2:22 PM EDT documented in this encounter Progress Notes * Herbie Grimes, YANN - 01/02/2023 2:30 PM EDT Images from the original note were not included. [facility] NEPHROLOGY/HYPERTENSION CLINIC FOLLOW-UP NOTE [id number] ID: 57 y.o.year-old female for follow up of CKD Past Medical History: Patient Active Problem List Diagnosis Code Chronic pain syndrome G89.4 Chorea G25.5 Primary parkinsonism G20.C Anxiety F41.9 Functional neurological symptom disorder with abnormal movement F44.4 Peripheral neuropathy G62.9 PTSD (post-traumatic stress disorder) F43.10 Tardive dyskinesia G24.01 Stage 3a chronic kidney disease N18.31 Hyperparathyroidism E21.3 Outpatient Encounter Medications as of 01/02/2023 Medication Sig Dispense Refill clonazePAM (KlonoPIN) 1 [...] in the evening naloxone (Narcan) 4 mg/actuation [place], Non-Aerosol 1 spray by Nasal route as [...] facility-administered encounter medications on file as of 01/02/2023. Allergies Allergen Reactions Mirtazapine Other (See Comments) Patient reports heart races and jittery feeling. Visible quivering extremities. Antihistamines - Alkylamine Gabapentin Histamine Novocain [Procaine] Excessive shaking Interim history: Cydney Morales is a 57 y.o. female with a PMHx of tardive dyskinesia, PTSD, anxiety who was last in the nephrology clinic on 08/14/2022 for evaluation of CKD. Since her last encounter with Nephrology she denies any hospitalizations, surgeries, or new diagnoses. S: Today she present for her 3 month follow up visit accompanied by her mother Keren, she endorses that she has been doing okay. The patient stated that her energy level is not great and she thinks almost every month she gets the flu and has been having depressive episodes. She denies feeling to self hurt or hurt others. She also denies any lightheadedness or dizziness, headaches, SOB, chest pain/pressure. Hydration has been without issues. Appetite challenging. She endorses having difficulty emptying her bladder which has been an ongoing occurrence for many years. She stated would start a urine streamthen her stream stops but but she still has the the urge to urinate but is unable. She mentioned being followed by Urrology at [facility] for this complaint. She further dneies denies dysuria but endorse waking approximately twice at night weirdly when I wake at nights to pee I go without issues as well as my first urine in the a.m. she thinks this its because at these periods my brain is not fully awake and I am not consciously thinking about urinating. Use of NSAIDs:No longer use Herbal supplements: Denies use Home BP:Denies checking since it has never been an issue O: Vitals: 01/02/23 1422 BP: 103/70 Pulse: 80 Weight: 62.1 kg (137 lb) Height: 149.9 cm (4' 11) General: Arrived ambulant in [facility], Cooperative with exam. HEENT: Sclera white, mucous membranes moist, no lymphadenopathy. CV: S1 and S2 present, HR regular, JVP not elevated. Resp: Lungs clear with no crackles or wheezes. Respirations non labored. Abd: Soft. + BS, no bruit, non tender. Ext: Warm. No cyanosis. No edema. Skin: No rash. Neuro: Intact, no asterixis. Psych: Mood appropriate Labs: Recent Results (from the past 72 hour(s)) Albumin Level Result Value Ref Range Albumin 4.0 3.2 - 5.2 g/dL Basic Metabolic Panel (non-fasting) Result Value Ref Range Glucose Lvl 95 65 - 199 mg/dL BUN 13 8 - 18 mg/dL Creatinine 1.27 (H) 0.70 - 1.20 mg/dL Sodium 141 135 - 145 mmol/L Potassium 4.4 3.5 - 5.0 mmol/L Chloride 104 98 - 107 mmol/L CO2 27 22 - 31 mmol/L Anion Gap 10 5 - 15 mmol/L Calcium 9.2 8.5 - 10.5 mg/dL Estimated GFR 49 (L) >=60 mL/min/1.73 m?? Vitamin D, 25-Hydroxy Result Value Ref Range 25-OH Vit D Total 56 21 - 100 ng/mL 25-OH Vit D Interp Sufficient PTH Result Value Ref Range PTH 118 (H) 15 - 65 pg/mL Phosphorus Result Value Ref Range Phosphorus 3.8 2.5 - 4.5 mg/dL Hemogram Result Value Ref Range WBC 6.0 4.0 - 9.5 x10(3)/mcL RBC 3.96 (L) 4.00 - 5.21 x10(6)/mcL Hemoglobin 12.9 11.7 - 15.5 g/dL Hematocrit 39.0 35.7 - 45.8 % MCV 98.5 (H) 82.6 - 94.4 fL MCH 32.6 (H) 27.1 - 32.0 pg MCHC 33.1 31.7 - 35.0 g/dL Platelets 197 145 - 357 x10(3)/mcL RDWSD 44.0 37.0 - 46.0 fL RDWCV 12.2 11.5 - 14.1 % MPV 11.1 7.6 - 12.9 fL nRBC % Auto 0.0 % nRBC Abs Auto 0.000 0.000 - 0.000 x10(3)/mcL Differential, Automated Result Value Ref Range Neutrophils % 56.6 % Neutr Abs (ANC) 3.39 1.70 - 6.10 x10(3)/mcL Lymphocytes % 35.5 % Lymphocytes Abs 2.1 0.9 - 3.2 x10(3)/mcL Monocytes % 6.4 % Monocyte Abs 0.4 0.3 - 0.9 x10(3)/mcL Eosinophils % 0.8 % Eosinophils Abs 0.0 0.0 - 0.4 x10(3)/mcL Basophils % 0.5 % Basophils Abs 0.0 0.0 - 0.1 x10(3)/mcL Immature Gran % 0.20 % Kimberly Gran Abs 0.01 0.00 - 0.04 x10(3)/mcL U Albumin/Cre Ratio Result Value Ref Range Alb/Cr Ratio, Random 3 0 - 29 mcg/mg Cr U Albumin Conc, Random 3.9 mg/L U Creatinine 152 mg/dL _Urinalysis with microscopic Result Value Ref Range Glucose UA Negative Negative mg/dL Protein UA Negative Negative mg/dL Bilirubin UA Negative Negative mg/dL Urobilinogen UA Normal Normal mg/dL pH UA 5.5 5.0 - 8.0 Blood UA Moderate (A) Negative mg/dL Ketones UA Negative Negative mg/dL Nitrite UA Negative Negative Leukocytes UA Negative Negative mcL Appearance UA Clear Clear Spec [place]more UA 1.016 1.005 - 1.030 Color UA Yellow Yellow RBC UA 3 0 - 4 /HPF WBC UA 1 0 - 5 /HPF Bacteria UA Occasional (A) None /HPF Squam Epith UA 4 <=4 /HPF Hyaline Cast UA 5 (H) 0 - 2 /LPF Protein/Creatinine Ratio, urine Result Value Ref Range U Creatinine 152 mg/dL U Protein Ran 7 0 - 12 mg/dL Prot/Cre Ratio <0.1 ratio Creatinine (mg/dL) Date Value 01/02/2023 1.27 (H) 08/14/2022 1.14 11/20/2016 1.12 Renal Ultrasound dated 01/02 PATIENT INFO: ID #: [id number] : [birth year] (57 yrs)(F) Name: CYDNEY Fuentes Visit Date: 01/02/2023 02:02 pm CHAMBERLAIN PERFORMED BY: Attending: Rosalinda Gonzalez MD Performed By: Jany Avila RDMS Referred By: WILBERT CHAVIS Location: [place] SERVICE(S) PROVIDED: URETRO - Retroperitoneal Complete - [id number] INDICATIONS: 57 y.o. female CKD3, r/o anatomic contribution to CKD COMPARISON: No prior studies for comparison. RIGHT KIDNEY: Size (cm) L: 8.0 Cortical Thickness: Normal Cortical Echogenicity: Normal Hydronephrosis: No sonographic evidence LEFT KIDNEY: Size (cm) L: 8.6 Cortical Thickness: Normal Cortical Echogenicity: Normal Hydronephrosis: No sonographic evidence URINARY BLADDER: Pre-void (cm) L: 1.7 AP: 1.2 TV: 3.4 Vol (ml): 3.6 Comment:Not distended, patient voided prior to exam. Limited views. IMPRESSION 1. RIGHT kidney 8 cm. LEFT kidney, 8.6 cm. No hydronephrosis. Normal-appearing RIGHT and LEFT kidneys. No renal cysts stones or masses. Partially distended urinary bladder limited views. A/P: Cydney Morales is a 57 y.o. year old female seen today for follow up of CKD. CKD stage 3: Serum Creatinine 1.27, eGFR 49 Creatinine up trended slightly since her last encounter. This mild uptrend may be hemodynamically driven. She has been doing well with the exception of altered urinary stream. Endorses being followed by Urology at [facility] and being seen recently. We do not have records of this visit. Will attempt to reach out to the [facility] for the records Renal ultrasound noted normal -appearing RIGHT kidney at 8 cm and LEFT kidney at 8.6 cm. She has no hydronephrosis, renal cysts stones or masses. No proteinuria, anemia or acidosis. Blood pressures well controlled off medications and she is euvolemic on assessment. Phos, potassium, sodium within normal limits. PTH slightly elevated Risk factors for worsening renal function reviewed. We discussed importance of good blood pressure control, adequate hydration, and avoidance of NSAIDs. -Avoid NSAIDs -Continue weekly vitamin D supplementation -Renal Artery Duplex given kidney size -Adequate hydration encouraged 2. Return to clinic 4 months with labs or sooner if needed for new or worsening symptoms Encouraged she to let me know if she has any questions or concerns in the interim. 45 minutes spent seeing the patient, reviewing the chart, and coordination of care. Herbie Grimes APRN [facility] [address] 2[address] floor, [employer] [address] [place] [address] CC: Yumiko Tavarez MD @[email or web address]@ documented in this encounter Miscellaneous Notes * Addendum Note - Herbie Grimes APRN - 01/02/2023 2:30 PM EDT Addended by: HERBIE GRIMES on: 01/12/2023 02:28 PM Modules accepted: Orders documented in this encounter Plan of Treatment Upcoming Encounters Date Type Department Care Team (Latest Contact Info) Description 09/24/2023 10:00 AM EDT Laboratory Appointment Lab [address] [place] [id number] 09/24/2023 11:30 AM EDT Office Visit [place] [address] Herbie Grimes APRN [facility] [place] [address] documented as of this encounter Results * Protein/Creatinine Ratio, urine (01/02/2023 1:26 PM EDT) U Creatinine 152 mg/dL [facility] U Protein Ran 7 0 - 12 mg/dL [facility] Prot/Cre Ratio <0.1 ratio [facility] Urine 01/02/2023 1:26 PM EDT 01/02/2023 1:38 PM EDT Narrative Resulting Agency Comment Spec In Lab Herbie Grimes APRN URINE ORD ERABLES [facility] [place] [address] * U Albumin/Cre Ratio (01/02/2023 1:26 PM EDT) Alb/Cr Ratio, Random 3 0 - 29 mcg/mg Cr [facility] Comment: Reference Ranges: <30 mcg/mg: [...] 362 U Albumin Conc, Random 3.9 mg/L [facility] U Creatinine 152 mg/dL [facility] Urine 01/02/2023 1:26 PM EDT 01/02/2023 1:38 PM EDT Narrative Resulting Agency Comment Spec In Lab Herbie Grimes RECORD MAKER URINE ORD ERABLES Performing Organization Address City/State/[facility] Co de Phone Number [facility] [place] [address] * (ABNORMAL) _Urinalysis with microscopic (01/02/2023 1:26 PM EDT) Glucose UA Negative Negative mg/dL [facility] Protein UA Negative Negative mg/dL [facility] Bilirubin UA Negative Negative mg/dL [facility] Comment: Clinical correlation required for positive Urine Bilirubin results as false positive may occur with some drugs and drug related products. If a false positive is suspected a serum total bilirubin should be considered if clinically indicated. Urobilinogen UA Normal Normal mg/dL [facility] pH UA 5.5 5.0 - 8.0 [facility] Blood UA Moderate(A) Negative mg/dL [facility] Ketones UA Negative Negative mg/dL [facility] Nitrite UA Negative Negative [facility] Leukocytes UA Negative Negative mcL [facility] Appearance UA Clear Clear [facility] Spec Ashmore UA 1.016 1.005 - 1.030 [facility] Color UA Yellow Yellow [facility] RBC UA 3 0 - 4 /HPF [facility] WBC UA 1 0 - 5 /HPF [facility] Bacteria UA Occasional( A) None /HPF [facility] Squam Epith UA 4 <=4 /HPF [facility] Hyaline Cast UA 5(H) 0 - 2 /LPF [facility] Urine 01/02/2023 1:26 PM EDT 01/02/2023 1:38 PM EDT Narrative Resulting Agency Comment Spec In Lab Herbiejamaica Grimes APRN URINE ORD ERABLES Performing Organization Address City/[facility]/ZIP Co de Phone Number [facility] [place] [address] * Phosphorus (01/02/2023 1:18 PM EDT) Phosphorus 3.8 2.5 - 4.5 mg/dL [facility] Blood 01/02/2023 1:18 PM EDT 01/02/2023 1:26 PM EDT Narrative Resulting Agency Comment Spec In Lab Herbie Leach Cornelio LERNER CHEMISTRY ORDERABLES Performing Organization Address [facility] Co de Phone Number [facility] [place] [address] * (ABNORMAL) PTH (01/02/2023 1:18 PM EDT) PTH 118(H) 15 - 65 pg/mL [facility] Blood 01/02/2023 1:18 PM EDT 01/02/2023 1:26 PM EDT Narrative Resulting Agency Comment Spec In Lab Herbie Hany Grimes APRN CHEMISTRY ORDERABLES Performing Organization Address City/[facility]/ZIP Co de Phone Number [facility] [place] [address] * Vitamin D, 25-Hydroxy (01/02/2023 1:18 PM EDT) 25-OH Vit D Total 56 21 - 100 ng/mL [facility] 25-OH Vit D Interp Sufficient [facility] Blood 01/02/2023 1:18 PM EDT 01/02/2023 1:26 PM EDT Narrative Resulting Agency Comment Spec In Lab Herbie Leach Cornelio LERNER CHEMISTRY ORDERABLES [facility] [address] [facility] [address] [place] [address] * (ABNORMAL) Basic Metabolic Panel (non-fasting) (01/02/2023 1:18 PM EDT) Glucose Lvl 95 65 - 199 mg/dL [facility] Comment:Diabetes: >=200 mg/d L plus symptoms BUN 13 8 - 18 mg/dL [facility] Creatinine 1.27(H) 0.70 - 1.20 mg/dL [facility] Sodium 141 135 - 145 mmol/L [facility] Potassium 4.4 3.5 - 5.0 mmol/L [facility] Comment: Please note: ??Patients with WBC >100,000 may have falsely elevated Potassium levels. ??For accurate Potassium quantification in these patients send serum separator tube (gold top) for subsequent determinations. ??Contact the Clinical Chemistry Laboratory if there are any questions. Chloride 104 98 - 107 mmol/L [facility] CO2 27 22 - 31 mmol/L [facility] Anion Gap 10 5 - 15 mmol/L [facility] Calcium 9.2 8.5 - 10.5 mg/dL [facility] Estimated GFR 49(L) >=60 mL/min/1. 73 m?? [facility] Comment: This patient's estimated GFR [...] Narrative Resulting Agency Comment Spec In Lab Herbie Hany Cornelio LERNER CHEMISTRY ORDERABLES Performing Organization Address City/[facility]/[place] [address] * Albumin Level (01/02/2023 1:18 PM EDT) Albumin 4.0 3.2 - 5.2 g/dL [facility] Blood 01/02/2023 1:18 PM EDT 01/02/2023 1:26 PM EDT Narrative Resulting Agency Comment Spec In Lab Herbie Leach Cornelio LERNER CHEMISTRY ORDERABLES Performing Organization Address City/[facility]/[place] [address] documented in this encounter Visit Diagnoses Diagnosis Stage 3a chronic kidney disease PTSD (post-traumatic stress disorder) Posttraumatic stress disorder Hyperparathyroidism Hyperparathyroidism, unspecified Anxiety Anxiety state, unspecified Stage 3a chronic kidney disease documented in this encounter Care Teams Timber Supervisor Relationship Specialty Start Date End Date Yumiko Tavarez MD [address] [place] [address] PCP - General Family Medicine 07/07/16 documented as of this encounter
--- OUTSIDE RECORDS SUMMARY | 2023-09-21 17:03 | XMS_ITS | Clinical Summary ---
Author Organization [facility] [place] [address] Care Team Providers Care Quarter Inspector Name Role Phone Yumiko Tavarez MD Primary Care Provider Allergies Active Allergy Reactions Criticality Noted Date Comments Antihistamines - Alkylamine 02/23/2020 Gabapentin 11/03/2016 Histamine 03/17/2014 Mirtazapine Other (See Comments) Medium 11/20/2018 Patient reports heart races and jittery feeling. Visible quivering extremities. Procaine 11/03/2016 Excessive shaking Medications Medication Sig Dispensed Refills Start Date End Date Status cyanocobalamin 1,000 mcg Tablet Take 1,000 mcg by mouth daily. Active calcium carbonate (TUMS) 200 mg calcium (500 mg) Tablet, Chewable Take 2 tablets by mouth 2 times daily. Active cholecalciferol, Vitamin D3, 50,000 unit Capsule Take 50,000 Units by mouth once a week. Active zolpidem (AMBIEN) 10 mg Tablet Take 10 mg by mouth nightly. Active oxyCODONE-acetaminophe n (PERCOCET) 10-325 mg Tablet Take 1 tablet by mouth every 6 hours as needed for Pain. Active folic acid (FOLVITE) 1 mg Tablet Take 1 mg by mouth daily. Active omeprazole (PRILOSEC) 20 mg Capsule, Delayed Release(E.C.) Take 20 mg by mouth as needed. 07/24/2017 Active pregabalin (LYRICA) 200 mg Capsule Take by mouth daily. 150 mg in the morning and 100mg in the evening Active naloxone (Narcan) 4 mg/actuation [place], Non-Aerosol 1 spray by Nasal route as needed. Active clonazePAM (KlonoPIN) 1 mg tablet Take by mouth. 1.5 tabs in the morning and 1 tab in afternoon, and 1.5 tabs at night 06/22/2022 Active acetaminophen (Tylenol) 500 mg tablet Take 1,000 mg by mouth every 6 hours as needed for Pain. Active Active Problems Problem Noted Date Diagnosed Date Stage 3a chronic kidney disease 09/03/2022 Hyperparathyroidism 09/03/2022 Anxiety 05/26/2020 Functional neurological symp lizz disorder with abnormal movement 05/26/2020 Tardive dyskinesia 05/26/2020 Peripheral neuropathy 02/24/2020 PTSD (post-traumatic stress disorder) 02/24/2020 Primary parkinsonism 12/18/2016 Chorea 11/03/2016 Chronic pain [...] AM EDT Sexual Orientation Not on file Last Filed Vital Signs Vital Sign Reading Time Taken Comments Blood Pressure 105/69 05/08/2023 2:35 PM EST Pulse 67 05/08/2023 2:35 PM EST Temperature - - Respiratory Rate 20 08/14/2022 12:58 PM EDT Oxygen Saturation 100% 08/14/2022 12:58 PM EDT Inhaled Oxygen Concentration - - Weight 60.3 kg (133 lb) 05/08/2023 2:35 PM EST Height 149.9 cm (4' 11) 05/08/2023 2:35 PM EST Body Mass Index 26.86 05/08/2023 2:35 PM EST Plan of Treatment Upcoming Encounters Date Type Department Care Team (Latest Contact Info) Description 09/24/2023 10:00 AM EDT Laboratory Appointment Lab [address] [place] [address] 09/24/2023 11:30 AM EDT Office Visit [place]ph[place] [address] Nenita Grimes, YANN [facility] [place] [address] Health Maintenance Due Date Last Done Comments CT Colonography 1963 Colonoscopy 1963 Colorectal Cancer Screening 1963 FIT DNA 1963 FIT 1963 Sigmoidoscopy (10 year) with FIT yearly 1963 Sigmoidoscopy 1963 Pneumococcal Vaccine: At-Ris k 5-64yrs (1 of 2 - PCV) 1969 HIV screen 1981 Hepatitis C Screening 1981 Lipid Screening 1981 Tdap adult 1982 Tetanus vaccine 1982 HPV test 1993 PAP Smear 1993 Breast Cancer Share Decision Needed 2003 Breast Cancer screening 2003 Zoster vaccine (1 of 2) 2013 Advance Directive 2018 Covid-19 Vaccine (1 - 2022-2 4 season) 2022 Influenza (Flu) vaccine (1 o f 1 - Influenza standard series) 11/04/2023 Diabetes Screening (HgbA1C o r Glucose) 05/07/2026 05/08/2023, 01/02/2023, 08/14/2022, Additional history exists Procedures Procedure Name Priority Date/Time Associated Diagnosis Comments BASIC METABOLIC PANEL (NON-FASTING) Routine 05/08/2023 1:54 PM EST Stage 3a chronic kidney disease from Last 3 Months or Most Recently Relevant to Health Maintenance Results * (ABNORMAL) Basic Metabolic Panel (non-fasting) (05/08/2023 1:54 PM EST) Glucose Lvl 89 65 - 199 mg/dL [facility] Comment:Diabetes: >=200 mg/d L plus symptoms BUN 11 8 - 18 mg/dL [facility] Creatinine 1.45(H) 0.70 - 1.20 mg/dL [facility] Sodium 140 135 - 145 mmol/L [facility] Potassium 4.0 3.5 - 5.0 mmol/L [facility] Comment: Please note: ??Patients with WBC >100,000 may have falsely elevated Potassium levels. ??For accurate Potassium quantification in these patients send serum separator tube (gold top) for subsequent determinations. ??Contact the Clinical Chemistry Laboratory if there are any questions. Chloride 102 98 - 107 mmol/L [facility] CO2 29 22 - 31 mmol/L [facility] Anion Gap 9 5 - 15 mmol/L [facility] Calcium 9.2 8.5 - 10.5 mg/dL [facility] Estimated GFR 41(L) >=60 mL/min/1. 73 m?? [facility] Comment: This patient's estimated [...] In Lab Ligia Lopez APRN CHEMISTRY ORDERABLES [facility] [place] [address] from Last 3 Months or Most Recently Relevant to Health Maintenance Care Teams Quarter Inspector Relationship Specialty Start Date End Date Yumiko Tavarez MD [address] [place], [place] [id number] PCP - General Family Medicine 07/07/16
--- OUTSIDE RECORDS SUMMARY | 2023-09-21 17:03 | XMS_ITS | Encounter Summary ---
Author Organization [facility] Address [address] [place] [address] Care Team Providers Care Metal Furniture Assembly Supervisor Name Role Phone Unknown, Provider Primary Care Provider [phone] Encounter Details Date Type Department Care Team (Late Contact Info) Description 11/10/2010 Results Only [facility] - [facility] ([facility]) [address] [place], [place] [address] Jerri Topete MD [address] [place] [address] [place] [address] Social History Tobacco Use Types Packs/Day Years Used Date Smoking Tobacco: Never Assessed Sex and Gender Information Value Date Recorded Sex Assigned at Not on file Gender Identity Female 12/29/2019 9:52 EDT Sexual Orientation Not on file documented as of this encounter Plan of Treatment Upcoming Encounters Date Type Department Care Team (Late Contact Info) Description 02/13/2024 13:00 EST Office Visit [facility] - [address] [address] [place], [place] [address] Alta Walter MD [address] [place] [address], Level 2 [place] [address] documented as of this encounter Procedures Procedure Name Priority Date/Time Associated Diagnosis Comments PAP TEST- RESULT ONLY Routine 11/10/2010 0:00 EDT documented in this encounter Results * PAP TEST- RESULT ONLY (11/10/2010 0:00 EDT) Pathology Report: CYTOPATHOLOGY REPORT ? Reports generated via electronic interface contain original data; ? however they are lacking the format of the original report. ? Caution should be taken when reading/interpreti ng unformatted reports. ? Name: ? ALMAZAN, CYDNEY ? Accession #: ? [id number] ? : ? 1965 (Age: 45) ??F ?Collect Date: ? 11/10/2010 ? Location: ? [facility] ? Receive Date: ? 11/11/2010 ? Provider: JERRI KOREY MD ? Copy to: REMINGTON MEIERDIERCKS MD ? Final Report ? SPECIMEN ADEQUACY ? Satisfactory for Evaluation ? - transformation zone component present ? GENERAL CATEGORIZATION ? Negative for Intraepithelial Lesion or Malignancy ? Last Menstural Period: years ? Specimen/Source: ??Pap Test, Cervix/Endocervix, ThinPrep Imaging System with ? manual evaluation ? Document reviewed and electronically signed by: ? Opal Bell, CT(ASCP)(IAC) ? Report ??Date: 11/15/2010 13:16 ? HPV with Pap Test ? Date Ordered: ? 11/15/2010 ? Status: ?? Signed Out ?Date Complete: ? 11/21/2010 ? By: ??System Interface ? Date Reported: ? 11/21/2010 ? Interpretation ? RESULT: Negative for HPV types 16, 18, 31, 33, 35, 39, 45, 51, 52, ? 56, 58, 59, and 68. ? Comments ? Document reviewed and electronically signed by: ? System Interface ? Report date: 11/21/2010 ? By the signature above, the attending physician certifies that he/she has ? personally conducted a gross and/or microscopic examination of the described ? specimens and rendered or confirmed the above diagnosis. ? End of Report ? [facility] 11/10/2010 11/11/2010 Jerri Topete MD PATHOLOGY ORDERABLES Performing Organization Address City/State/[facility] Co de Phone Number [facility] [address] [place] [address] documented in this encounter Visit Diagnoses Not on filedocumented in this encounter Care Teams Metal Furniture Assembly Supervisor Relationship Specialty Start Date End Date Unknown, Provider, PCP - General 08/05/08 12/28/19 documented as of this encounter
--- OUTSIDE RECORDS SUMMARY | 2023-09-21 17:03 | XMS_ITS | Encounter Summary ---
Author Organization [facility] [place] [address] Care Team Providers Care Manager Retail Store Name Role Phone Yumiko Tavarez MD Primary Care Provider [phone] Reason for Visit * Reason Onset Date Comments Medication Problem 03/04/2020 Encounter Details Date Type Department Care Team (Late st Contact Info) Description 03/04/2020 Telephone Neurology at [facility] [place] [address] Razia Mims MD [facility] [place] [address] Medication Problem Social History Tobacco Use Types Packs/Day Years [...] Miscellaneous Notes * Telephone Encounter - Nishi Gonsalves RN - 03/04/2020 12:36 PM EST Form refaxed * Telephone Encounter - Christin Sánchez - 03/04/2020 11:22 AM EST Call Center / Program Lead Message - Medication Issue (Not to be used for refill request or medication prior auth request) Provider patient sees in Clinic: Dr. Mims Caller and relationship (if other than patient-full name): Dick Rothman patient support program Call Back Number: [phone] Ok to leave a message: Reason for call: Medication Issue (if medication issue is a symptom do not use this phrase) Message/information for the nurse: Name of Medication: Rytary 195mg Issue with the medication: Dick called stating that the fax he received was blurry and he needs some information on insurance for patient . They are open from 8:00 am- 8;00pm M-F except closed Disposition of Call: ?? Routine Message sent to the Nurse yes ?? Other: no documented in this encounter Plan of Treatment Upcoming Encounters Date Type Department Care Team (Latest Contact Info) Description 09/24/2023 10:00 AM EDT Laboratory Appointment Lab [address] [place] [address] 09/24/2023 11:30 AM EDT Office Visit [place] [address] Nenita Grimes APRN [facility] [place] [address] documented as of this encounter Visit Diagnoses Not on filedocumented in this encounter Care Teams Manager Retail Store Relationship Specialty Start Date End Date Yumiko Tavarez MD [address] [place] [address] PCP - General Family Medicine 07/07/16 documented as of this encounter
--- OUTSIDE RECORDS SUMMARY | 2023-09-21 17:03 | XMS_ITS | Encounter Summary ---
Author Organization [facility] [place] [address] Care Team Providers Care Histology Teacher Name Role Phone Yumiko Tavarez MD Primary Care Provider [phone] Encounter Details Date Type Department Care Team (Late st Contact Info) Description 03/04/2020 Telephone Neurology at [facility] [place] [address] Razia Aragon MD [place] [address] Social History Tobacco Use Types Packs/Day Years [...] illegible, Card numbers and information called into [facility] program number * Telephone Encounter - Nishi Gonsalves RN - 03/04/2020 12:37 PM EST form refaxed * Telephone Encounter - Kay Mak - 03/04/2020 11:24 AM EST Call Center / Painting Machine Operator Message - General Issue Call Provider patient sees in Clinic: Jamie Aragon Caller and relationship (if other than patient-full name): Harrison Quiñones patient support program Call back number: [phone] Ok to leave a message: y Reason for call: Harrison is calling today stating that he received the enrollment form, but the insurance information wasn't readable and will need that faxed over again. Please call back to discuss ifnecessary. Disposition of Call (choose one and remove others): ??? Routine Message sent to the Nurse: x documented in this encounter Plan of Treatment Upcoming Encounters Date Type Department Care Team (Latest Contact Info) Description 09/24/2023 10:00 AM EDT Laboratory Appointment Lab [address] [place] [address] 09/24/2023 11:30 AM EDT Office Visit Neph[place] [address] Nenita Grimes APRN [facility] [place] [address] documented as of this encounter Visit Diagnoses Not on filedocumented in this encounter Care Teams Histology Teacher Relationship Specialty Start Date End Date Yumiko Tavarez MD [address] [place] [address] PCP - General Family Medicine 07/07/16 documented as of this encounter
--- OUTSIDE RECORDS SUMMARY | 2023-09-21 17:03 | XMS_ITS | Encounter Summary ---
Author Organization [facility] [place] [address] Care Team Providers Care Ecologist Name Role Phone Yumiko Tavarez MD Primary Care Provider [phone] Encounter Details Date Type Department Care Team (Latest Contact Info) Description 08/14/2022 11:30 AM EDT Laboratory Appointment Lab [address] [place] [address] Stage 3 chronic kidney disease, unspecified whether [...] 10:00 AM EDT Laboratory Appointment Lab [address] [place] [address] 09/24/2023 11:30 AM EDT Office Visit [place] [address] [facility] [place] [address] documented as of this encounter Procedures Procedure Name Priority Date/Time Associated Diagnosis Comments HC UA W/OUT MICROSCOPIC Routine 08/14/2022 12:24 PM EDT Stage 3 chronic kidney disease, unspecified whether stage 3a or 3b CKD HC PARATHYROID HORMONE(PTH INTACT Routine 08/14/2022 11:52 AM EDT Stage 3 chronic kidney disease, unspecified whether stage 3a or 3b CKD HEMOGRAM Routine 08/14/2022 11:52 AM EDT Stage 3 chronic kidney disease, unspecified whether stage 3a or 3b CKD DIFFERENTIAL, AUTOMATED Routine 08/14/2022 11:52 AM EDT Stage 3 chronic kidney disease, unspecified whether stage 3a or 3b CKD HC VITAMIN D TOTAL-25 HYDROXY Routine 08/14/2022 11:52 AM EDT Stage 3 chronic kidney disease, unspecified whether stage 3a or 3b CKD HC CBC,PLT & AUTO DIFF Routine 08/14/2022 11:52 AM EDT Stage 3 chronic kidney disease, unspecified whether stage 3a or 3b CKD HC PHOSPHORUS, SERUM Routine 08/14/2022 11:52 AM EDT Stage 3 chronic kidney disease, unspecified whether stage 3a or 3b CKD CALCIUM Routine 08/14/2022 11:52 AM EDT Stage 3 chronic kidney disease, unspecified whether stage 3a or 3b CKD BASIC METABOLIC PANEL (NON-FASTING) Routine 08/14/2022 11:52 AM EDT Stage 3 chronic kidney disease, unspecified whether stage 3a or 3b CKD documented in this encounter Results * (ABNORMAL) Urinalysis without microscopic (08/14/2022 12:24 PM EDT) Glucose UA Negative Negative mg/dL [facility] Protein UA Negative Negative mg/dL [facility] Bilirubin UA Negative Negative mg/dL [facility] Comment: Clinical correlation required for positive Urine Bilirubin results as false positive may occur with some drugs and drug related products. If a false positive is suspected a serum total bilirubin should be considered if clinically indicated. Urobilinogen UA Normal Normal mg/dL Stephanie ANDREE [facility] pH UA 6.0 5.0 - 8.0 [facility] Blood UA Small(A) Negative mg/dL [facility] Ketones UA Negative Negative mg/dL [facility] Nitrite UA Negative Negative [facility] Leukocytes UA Negative Negative [facility] MAR Y [facility] Appearance UA Clear Clear [facility] Spec Ferriday UA 1.010 1.005 - 1.030 [facility] Color UA Yellow Yellow [facility] Urine 08/14/2022 12:2 4 PM EDT 08/14/2022 12:33 PM EDT Narrative Resulting Agency Comment Spec In Lab Efren Suh MD URINE ORDERABLES Performing Organization Address City/State/[place] Co de Phone Number [facility] [place] [address] * Differential, Automated (08/14/2022 11:52 AM EDT) Neutrophils % 44.1 % [facility] Neutr Abs (ANC) 2.42 1.70 - 6.10 x10(3)/[facility] Lymphocytes % 46.7 % [facility] Lymphocytes Abs 2.6 0.9 - 3.2 x10(3)/[facility] Monocytes % 7.7 % [facility] Monocyte Abs 0.4 0.3 - 0.9 x10(3)/[facility] Eosinophils % 0.9 % [facility] Eosinophils Abs 0.0 0.0 - 0.4 x10(3)/[facility] Basophils % 0.4 % [facility] Basophils Abs 0.0 0.0 - 0.1 x10(3)/[facility] Immature Gran % 0.20 % [facility] Comment: Immature granulocytes(IG's)percentage and absolute count will include metamyelocytes, myelocytes, and promyelocytes. Blood smears from CBCs yielding IG's will be scanned manually for concordance. If this scan disagrees with the automated IG or if promyelocytes are noted, a manual differential will be performed. Kimberly Gran Abs 0.01 0.00 - 0.04 x10(3)/[facility] Blood 08/14/2022 11:5 2 AM EDT 08/14/2022 11:59 AM EDT Narrative Resulting Agency Comment Spec In Lab Neeraj Vasquez MD HEMATOLOGY ORDE MILO [facility] [place] [address] * (ABNORMAL) Hemogram (08/14/2022 11:52 AM EDT) WBC 5.5 4.0 - 9.5 x10(3)/[facility] RBC 3.82(L) 4.00 - 5.21 x10(6)/[facility] Hemoglobin 12.4 11.7 - 15.5 g/dL [facility] Hematocrit 37.9 35.7 - 45.8 % [facility] MCV 99.2(H) 82.6 - 94.4 fL [facility] MCH 32.5(H) 27.1 - 32.0 pg [facility] MCHC 32.7 31.7 - 35.0 g/dL [facility] Platelets 199 145 - 357 x10(3)/[facility] RDWSD 44.5 37.0 - 46.0 fL [facility] RDWCV 12.3 11.5 - 14.1 % [facility] MPV 10.9 7.6 - 12.9 fL [facility] nRBC % Auto 0.0 % [facility] nRBC Abs Auto 0.000 0.000 - 0.000 x10(3)/mcL [facility] Blood 08/14/2022 11:5 2 AM EDT 08/14/2022 11:59 AM EDT Narrative Resulting Agency Comment Spec In Lab Neeraj Vasquez MD HEMATOLOGY ORDE MILO Performing Organization Address City/[facility]/ZIP Co de Phone Number [facility] [place] [address] * Vitamin D, 25-Hydroxy (08/14/2022 11:52 AM EDT) 25-OH Vit D Total 40 21 - 100 ng/mL [facility] 25-OH Vit D Interp Sufficient [facility] Blood 08/14/2022 11:5 2 AM EDT 08/14/2022 11:59 AM EDT Narrative Resulting Agency Comment Spec In Lab Efren Suh MD CHEMISTRY ORDERABLES Performing Organization Address [facility]/ZIP Co de Phone Number [facility] [place] [address] * (ABNORMAL) Basic Metabolic Panel (non-fasting) (08/14/2022 11:52 AM EDT) Glucose Lvl 82 65 - 199 mg/dL [facility] Comment:Diabetes: >=200 mg/d L plus symptoms BUN 13 8 - 18 mg/dL [facility] Creatinine 1.14 0.70 - 1.20 mg/dL [facility] Sodium 141 135 - 145 mmol/L [facility] Potassium 4.5 3.5 - 5.0 mmol/L [facility] Comment: Please note: ??Patients with WBC >100,000 may have falsely elevated Potassium levels. ??For accurate Potassium quantification in these patients send serum separator tube (gold top) for subsequent determinations. ??Contact the Clinical Chemistry Laboratory if there are any questions. Chloride 103 98 - 107 mmol/L [facility] CO2 28 22 - 31 mmol/L [facility] Anion Gap 10 5 - 15 mmol/L [facility] Calcium 9.6 8.5 - 10.5 mg/dL [facility] Estimated GFR 55(L) >=60 mL/min/1. 73 m?? [facility] Comment: This patient's estimated GFR [...] In Lab Efren Suh MD CHEMISTRY ORDERABLES [facility] [place] [address] * (ABNORMAL) PTH (08/14/2022 11:52 AM EDT) PTH 76(H) 15 - 65 pg/mL [facility] Blood 08/14/2022 11:5 2 AM EDT 08/14/2022 11:59 AM EDT Narrative Resulting Agency Comment Spec In Lab Efren Suh MD CHEMISTRY ORDERABLES [facility] [place] [address] * Calcium (08/14/2022 11:52 AM EDT) Calcium 9.6 8.5 - 10.5 mg/dL [facility] Blood 08/14/2022 11:5 2 AM EDT 08/14/2022 11:59 AM EDT Narrative Resulting Agency Comment Spec In Lab Efren Suh MD [place] [address] * Phosphorus (08/14/2022 11:52 AM EDT) Phosphorus 4.2 2.5 - 4.5 mg/dL [facility] Blood 08/14/2022 11:5 2 AM EDT 08/14/2022 11:59 AM EDT Narrative Resulting Agency Comment Spec In Lab Efren Suh MD CHEMISTRY ORDERABLES Performing Organization Address City/[facility]/ZIP Co de Phone Number [facility] [place] [address] documented in this encounter Visit Diagnoses Diagnosis Stage 3 chronic kidney disease, unspecified whether stage 3a or 3b CKD Stage 3a chronic kidney disease documented in this encounter Care Teams Ecologist Relationship Specialty Start Date End Date Yumiko Tavarez MD [address] [place] [address] PCP - General Family Medicine 07/07/16 documented as of this encounter
--- OUTSIDE RECORDS SUMMARY | 2023-09-21 17:03 | XMS_ITS ---
Author Organization [facility] Address [address] [place] [address] Care Team Providers Care Lacemaker Name Role Phone Yumiko Tavarez MD Primary Care Provider [phone] Neurology Status:Discharged (Closed) Start date:03/03/2021 Enrollment date:03/03/2021 End date:05/20/2021 Continued Care and Services Coordination
--- OUTSIDE RECORDS SUMMARY | 2023-09-21 17:03 | XMS_ITS | Encounter Summary ---
Author Organization [facility] [place] [address] Care Team Providers Care Bleacher Sulfite Pulp Name Role Phone Yumiko Tavarez MD Primary Care Provider [phone] Encounter Details Date Type Department Care Team (Late st Contact Info) Description 01/21/2019 Telephone Neurology at [facility] [place] [address] Razia Mims MD [facility] [place] [address] Social History Tobacco Use Types Packs/Day Years [...] tetrabenazine 12.5mg BID. If it is expensive thenI will have her sign up for [place]. RJT I phoned pt and reviewed/instructed above. She agrees with plan and verbalizes understanding. New rx generated for provider review and signature. * Telephone Encounter - Nishi Gee RN - 01/21/2019 11:20 AM EST I will forward to . * Telephone Encounter - Radha Bobby - 01/21/2019 11:06 AM EST Clinical Senior Clinical Data Manager Message Caller: Miguelina Call back Number: [phone] Reason for call: EKG Message/information for the nurse: the pt called to talk to a nurse about he medication Dr. Mims was going to put her on after the EKG which she got done 01/16. She would like a call back. Disposition of Call ?? Routine Message sent to the Nurse documented in this encounter Plan of Treatment Upcoming Encounters Date Type Department Care Team (Latest Contact Info) Description 09/24/2023 10:00 AM EDT Laboratory Appointment Lab [address] [place] [address] 09/24/2023 11:30 AM EDT Office Visit Ne[place] [address] Nenita Grimes APRN [facility] [place] [address] documented as of this encounter Visit Diagnoses Not on filedocumented in this encounter Care Teams Bleacher Sulfite Pulp Relationship Specialty Start Date End Date Yumiko Tavarez MD [address] [place] [address] PCP - General Family Medicine 07/07/16 documented as of this encounter
--- OUTSIDE RECORDS SUMMARY | 2023-09-21 17:03 | XMS_ITS | Encounter Summary ---
Author Organization [facility] [place] [address] Care Team Providers Care Welding Machine Operator Submerged Arc Name Role Phone Yumiko Tavarez MD Primary Care Provider [phone] Encounter Details Date Type Department Care Team (Latest Contact Info) Description 08/14/2022 Travel Social History Tobacco Use Types Packs/Day [...] 10:00 AM EDT Laboratory Appointment Lab [address] [place] [address] 09/24/2023 11:30 AM EDT Office Visit [place] [address] Nenita Grimes, [facility] [place] [address] documented as of this encounter Visit Diagnoses Not on filedocumented in this encounter Care Teams Welding Machine Operator Submerged Arc Relationship Specialty Start Date End Date Yumiko Tavarez MD [address] [place], [place] [address] PCP - General Family Medicine 07/07/16 documented as of this encounter
--- OUTSIDE RECORDS SUMMARY | 2023-09-21 17:03 | XMS_ITS | Encounter Summary ---
Author Organization [facility] [place] [address] Care Team Providers Care Linux Server Engineer Name Role Phone Yumiko Tavarez MD Primary Care Provider [phone] Encounter Details Date Type Department Care Team (Late st Contact Info) Description 11/20/2018 Orders [place] [address] Razia Mims MD [facility] [place] [address] Preventive measure Social History Tobacco Use Types Packs/Day Years [...] 10:00 AM EDT Laboratory Appointment Lab [address] [place] [address] 09/24/2023 11:30 AM EDT Office Visit [place] [address] Nenita Grimes APRN [facility] [place] [address] documented as of this encounter Visit Diagnoses Diagnosis Preventive measure Unspecified prophylactic or treatment measure Stage 3a chronic kidney disease documented in this encounter Care Teams Linux Server Engineer Relationship Specialty Start Date End Date Yumiko Tavarez MD [address] [place] [address] PCP - General Family Medicine 07/07/16 documented as of this encounter
--- OUTSIDE RECORDS SUMMARY | 2023-09-21 17:03 | XMS_ITS | Encounter Summary ---
Author Organization [facility] [place] [address] Care Team Providers Care Physician Practice Manager Name Role Phone Yumiko Tavarez MD Primary Care Provider [phone] Encounter Details Date Type Department Care Team (Late st Contact Info) Description 03/26/2019 Telephone Neurology at [facility] [place] [place] [address] Razia Mims MD [facility] [place] [address] Social History Tobacco Use Types Packs/Day Years [...] need to fax the updated script to mary. RJT I phoned pt and reviewed/instructed above. She agrees with plan and verbalizes understanding. * Telephone Encounter - Nishi Gee RN - 04/01/2019 3:02 PM EST Pt phoned and left message on triage line that after another week the current dose of tetrabenazineis not working. She would like to increase the dose as previously recommended. I will forward to Dr. Mims. * Telephone Encounter - Nishi Gee RN - 03/26/2019 3:[address] Mims: If there is still no difference at the end of this month (one more week), then we will increase to25mg BID. I think I would have to update the script through [employer] I phoned pt and reviewed/instructed above. She will call with update in one week. Pt agrees with plan and verbalizes understanding. * Telephone Encounter - Nishi Gee RN - 03/26/2019 3:17 PM EST Last visit 09/12/18 Next visit 09/02/19 Patient phoned. She states she started taking Tetrabenazine 12.5 mg BID at the 1st of this year. She states she has not noticed a difference yet [...] 10:00 AM EDT Laboratory Appointment Lab [address] [place] [address] 09/24/2023 11:30 AM EDT Office Visit [place] [address] Nenita Grimes, [facility] [place] [address] documented as of this encounter Visit Diagnoses Not on filedocumented in this encounter Care Teams Physician Practice Manager Relationship Specialty Start Date End Date Yumiko Tavarez MD [address] [place] [address] PCP - General Family Medicine 07/07/16 documented as of this encounter
--- OUTSIDE RECORDS SUMMARY | 2023-09-21 17:03 | XMS_ITS | Encounter Summary ---
Author Organization [facility] [place] [address] Care Team Providers Care Director Of Student Aid Name Role Phone Yumiko Tavarez MD Primary Care Provider [phone] Reason for Visit * Reason Onset Date Comments Medication Refill 01/21/2019 Encounter Details Date Type Department Care Team (Late st Contact Info) Description 01/21/2019 [place] [phone] Razia Mims MD [facility] [place] [address] Social History Tobacco Use Types Packs/Day Years [...] 10:00 AM EDT Laboratory Appointment Lab [address] [place] [address] 09/24/2023 11:30 AM EDT Office Visit Ne[place] [address] Nenita Grimes, PERMASTONE APPLICATOR [facility] [place] [address] documented as of this encounter Visit Diagnoses Not on filedocumented in this encounter Care Teams Director Of Student Aid Relationship Specialty Start Date End Date Yumiko Tavarez MD [address] [place] [address] PCP - General Family Medicine 07/07/16 documented as of this encounter
--- OUTSIDE RECORDS SUMMARY | 2023-09-21 17:03 | XMS_ITS | Encounter Summary ---
Author Organization [facility] Address [address] [place] [address] Care Team Providers Care Band Attacher Name Role Phone Unknown, Provider Primary Care Provider [phone] Encounter Details Date Type Department Care Team (Late st Contact Info) Description 05/29/2007 Results Only [facility] - Maple conversion [address] [place] [address] Jerri Topete MD [address] [place] [address] [place] [address] Social History Tobacco Use Types Packs/Day Years [...] 02/13/2024 13:00 EST Office Visit [facility] Neurology - [address] [place] [address] [place] [id number] Alta Walter MD [address] [place] [address] [address] [place] [phone] documented as of this encounter Procedures Procedure Name Priority Date/Time Associated Diagnosis Comments HPV DETECTION, HIGH RISK TYPES Routine 05/29/2007 13:40 EDT CYTOPATHOLOGY Routine 05/29/2007 0:00 EDT documented in this encounter Results * HUMAN PAPILLOMA VIRUS DNA TEST (05/29/2007 13:40 EDT) Specimen Description Cervix, ThinPrep vial [facility] Result Negative for HPV types 16, 18, 31, 33, 35, 39, 45, 51, 52, 56, 58, 59, and 68. [facility] Report Status Final [id number] [facility] 05/29/2007 13:4 0 EDT 06/04/2007 14:32 EDT Jerri Topete MD MICROBIOLOGY - GENER AL ORDERABLES [facility] [address] [place] [address] * CYTOPATHOLOGY (05/29/2007 0:00 EDT) Pathology Report: CYTOPATHOLOGY REPORT Reports generated via electronic interface contain original data; however they are lacking the format of the original report. Caution should be taken when reading/interpreti ng unformatted reports. Name: ? THA, CYDNEY ? Accession #: ? [id number] : ? 1965 (Age: 42) ??F ?Collect Date: ? 05/29/2007 Location: ? [facility] ? Receive Date: ? 05/30/2007 Provider: ?JERRI TOPETE MD Copy to: ? Specimen/Source: ?ThinPrep Pap Test, Cervix/Endocervix, processed on [employer] ThinPrep Imaging System, with manual evaluation Last Menstrual Period: ? 11/03/04 Other: ? HPVDX - HPV testing requested regardless of diagnosis on current ThinPrep Pap test. ? SPECIMEN ADEQUACY ? Satisfactory for Evaluation - transformation zone component present GENERAL CATEGORIZATION ? Negative for Intraepithelial Lesion or Malignancy ? Document reviewed and electronically signed by: ? HEATHER Ann(ASCP) ? Report Date: ??06/04/2007 11:24 End of Report [facility] 05/29/2007 05/30/2007 Jerri Topete MD PATHOLOGY ORDERABLES [facility] [address] [place] [address] documented in this encounter Visit Diagnoses Not on filedocumented in this encounter Care Teams Band Attacher Relationship Specialty Start Date End Date Unknown, Provider, PCP - General 08/05/08 12/28/19 documented as of this encounter
--- OUTSIDE RECORDS SUMMARY | 2023-09-21 17:03 | XMS_ITS | Encounter Summary ---
Author Organization [facility] Address [address] [place] [address] Care Team Providers Care Building Construction Ironworker Name Role Phone Unavailable Primary Care Provider Unavailabl e Encounter Details Date Type Department Care Team (Late st Contact Info) Description 08/03/2008 Orders Only [facility] - [facility] ([facility] [address] [place], [place] [address] Lincoln Holm MD [address] [place] [address] Social History Tobacco Use Types Packs/Day Years Used Date Smoking Tobacco: Never Assessed Sex and Gender Information Value Date Recorded Sex Assigned at Not on file Gender Identity Female 12/29/2019 9:52 EDT Sexual Orientation Not on file documented as of this encounter Plan of Treatment Upcoming Encounters Date Type Department Care Team (Late st Contact Info) Description 02/13/2024 13:00 EST Office Visit [facility] Neurology - [address] [address] Alta Walter MD [address] [place] [address], [address] [place] [phone] documented as of this encounter Procedures Procedure Name Priority Date/Time Associated Diagnosis Comments SURGICAL PATHOLOGY Routine 08/03/2008 0:00 EDT documented in this encounter Results * SURGICAL PATHOLOGY (08/03/2008 0:00 EDT) Pathology Report: SURGICAL PATHOLOGY REPORT ? Reports generated via electronic interface contain original data; ? however they are lacking the format of the original report. ? Caution should be taken when reading/interpreti ng unformatted reports. ? Name: ? ALMAZAN, CYDNEY ? Accession #: ? [id number] ? : ? 1965 (Age: 43) ??F ? Collect Date: ? 08/03/2008 ? Location: ? [facility] ? Receive Date: ? 08/03/2008 ? Provider: LINCOLN STEPHIE MD ? Copy to: REMINGTON MEIERDIERCKS MD ? Final Pathologic Diagnosis: ? A. ?Small bowel, duodenum, biopsy: ? 1. ?Duodenal mucosa without significant abnormality. ? 2. ? Negative for Giardia, celiac disease or other significant inflammation. ?? B. ?Esophagus, 33 cm, biopsy: ? 1. ?Squamocolumnar junctional mucosa with mild acute chronic ? inflammation. ? 2. ? Negative for dysplasia. ? Document reviewed and electronically signed by: ? Lizzeth Franklin MD ? Report ??Date: 08/05/2008 14:37 ? By the signature above, the attending physician certifies that he/she has ? personally conducted a gross and/or microscopic examination of the described ? specimens and rendered or confirmed the above diagnosis. ? Specimen(s) Received: ? A. ?Duodenum ? B. ? Esophagus 33 cm ? Clinical History: ? Anemia ? Gross Description: ? Received in Yeisone's fixative labelled Almazan, Cydney and biopsy ? duodenum are four pink-painting irregular soft tissues ranging from 0.2 x 0.2 x 0.2 cm to 0.7 x 0.2 x 0.2 cm. ??Submitted in toto as (A1) and (A2). ? Received in Berna's fixative labelled Matias, Cydney and biopsy esophagus 33 cm are four pink-painting irregular soft tissues ranging from 0.3 x 0.3 x 0.2 cm to 0.5 x 0.3 x 0.2 cm. ??Submitted in toto as (B1) and (B2). ??(Jessica Maldonado)/tmg ? End of Report ? [facility] 08/03/2008 08/03/2008 9:0 5 EDT Lincoln Holm MD PATHOLOGY ORDERABLE S [facility] [address] [place] [address] documented in this encounter Visit Diagnoses Not on filedocumented in this encounter
--- OUTSIDE RECORDS SUMMARY | 2023-09-21 17:03 | XMS_ITS | Encounter Summary ---
Author Organization [facility] [address] Care Team Providers Care Warranty Coordinator Name Role Phone Yumiko Tavarez MD Primary Care Provider [phone] Encounter Details Date Type Department Care Team (Latest Contact Info) Description 05/08/2023 Travel Social History Tobacco Use Types Packs/Day [...] 10:00 AM EDT Laboratory Appointment Lab [address] [place] [phone] 09/24/2023 11:30 AM EDT Office Visit Ne[place] [phone] Nenita Grimes, [facility] [place] [address] documented as of this encounter Visit Diagnoses Not on filedocumented in this encounter Care Teams Warranty Coordinator Relationship Specialty Start Date End Date Yumiko Tavarez MD [address] [place], [place] [address] PCP - General Family Medicine 07/07/16 documented as of this encounter
--- OUTSIDE RECORDS SUMMARY | 2023-09-21 17:03 | XMS_ITS | Encounter Summary ---
Author Organization [facility] [place] [address] Care Team Providers Care Dye Machine Operator Name Role Phone Yumiko Tavarez MD Primary Care Provider [phone] Encounter Details Date Type Department Care Team (Latest Contact Info) Description 01/02/2023 Travel Social History Tobacco Use Types Packs/Day [...] 10:00 AM EDT Laboratory Appointment Lab [address] [place] [phone] 09/24/2023 11:30 AM EDT Office Visit [place] [phone] Nenita Grimes, [facility] [address] documented as of this encounter Visit Diagnoses Not on filedocumented in this encounter Care Teams Dye Machine Operator Relationship Specialty Start Date End Date Yumiko Tavarez MD [address] [place], [place] [address] PCP - General Family Medicine 07/07/16 documented as of this encounter
--- OUTSIDE RECORDS SUMMARY | 2023-09-21 17:04 | XMS_ITS | Encounter Summary ---
Author Organization [facility] [place] [address] Care Team Providers Care Seo Intern Name Role Phone Yumiko Tavarez MD Primary Care Provider [phone] Reason for Visit * Reason Onset Date Comments Medication Refill 01/22/2017 Encounter Details Date Type Department Care Team (Late st Contact Info) Description 01/22/2017 [place] [phone] Razia Mims MD [facility] [place] [address] Social History Tobacco Use Types Packs/Day Years [...] 10:00 AM EDT Laboratory Appointment Lab [address] [place] [address] 09/24/2023 11:30 AM EDT Office Visit [place] [address] Nenita Grimes, [employer]AILER [facility] [place] [address] documented as of this encounter Visit Diagnoses Not on filedocumented in this encounter Care Teams Seo Intern Relationship Specialty Start Date End Date Yumiko Tavarez MD [address] [place] [address] PCP - General Family Medicine 07/07/16 documented as of this encounter
--- OUTSIDE RECORDS SUMMARY | 2023-09-21 17:04 | XMS_ITS | Encounter Summary ---
Author Organization Formerly [facility] [place] [address] Care Team Providers Care Tax Technician Name Role Phone Yumiko Tavarez MD Primary Care Provider [phone] Reason for Referral * Diagnostic Test (Routine) - Closed Specialty Diagnoses / Procedures Referred By Warren dennis Referred To Contact Radiology Diagnoses Chorea Procedures MRI Brain wo Contrast Razia Mims MD [facility] [place] [address] [place] [address] Referral ID Status Reason Start Date Expiration Date V isits Requested Visits Authorized [id number] Closed Specialty Service Requested 11/07/2016 02/05/2017 1 1 Reason for Visit * Consultation (Routine) - Closed Specialty Diagnoses / Procedures Referred By Warren dennis Referred To Contact Neurology Diagnoses 51 yo lady with difficulty walking. She has a chorieform and dancing gait and has a lot of chorieform movements. MRI spine shows old fractures. There is no family history of chorea to suggest Krysta disease. No strep infection to suggest Sydenham's chorea. Terence Montgomery MD [address] [address] Prashant Roach MD [facility] [place] [address] Referral ID Status Reason Start Date Expiration Date V isits Requested Visits Authorized [id number] Closed Consult, Test & Treat Connection [facility] 07/07/2016 07/07/2017 1 1 Encounter Details Date Type Department Care Team (Late st Contact Info) Description 11/03/2016 3:30 PM EDT Office Visit Neurology at [facility] [place] [address] Razia Mims MD [facility] [address] Chorea Social History Tobacco Use Types Packs/Day [...] 148.6 cm (4' 10.5) 11/03/2016 3:19 PM ED T reported Body Mass Index 25.27 11/03/2016 3:19 PM EDT documented in this encounter Progress Notes * Razia Mims MD - 11/03/2016 3:30 PM EDT [facility] Movement Disorders New Patient Evaluation Date of service 11/03/2016 Referring provider Terence Montgomery MD [facility] [address] [address] Cc: involuntary movements History of present illness Miguelina Salcedo is a 51 y.o. right handed woman who presents to the movement disorders clinic for evaluation of abnormal involuntary movements. Miguelina tells me that in about 2003 she was having abnormal movements and was told she had ataxia. Mildredalso had some difficulty swallowing and mild dysarthria [...] once a week., Disp: , Rfl: ??? DENOSUMAB (PROLIA SUBQ), Inject subcutaneously. Indications: Every 6 months, Disp: , Rfl: ??? cyclobenzaprine (FLEXERIL) 10 mg Tablet, Take 10 mg by mouth 3 times daily as needed for Musclespasms., Disp: , Rfl: ??? zolpidem (AMBIEN) 10 [...] LAPAROSCOPIC ??? VERTEBROPLASTY Social History: Lives in [facility], she is retired from [employer] Family History Problem Relation Age of Onset [...] distress, well groomed, Body mass index is 25.27 kg/(m^2). HEENT: normal cephalic atraumatic, eye conjunctiva moist with no abnormal discharge, no abnormal nasal discharge Voice/language: no vocal tremor but there is mild dysarthria. Normal fluency, comprehension, namingand repetition Cardiovascular: pulses palpable and symmetrical throughout [...] as 2003 she had some issues with walking and was told she had chorea. She used a cane up until about 1 year ago and recently had to stop because she was tripping over it which is consistent with chorea. Her exam is variable over the hour that I spent with her sometimes the movements are calm but when she gets distracted there is a good am ount of random non purposeful movements in the mouth, trunk and extremities. UHDRS score today is 11. Her family history is significant for a father who spent time in a psychiatric hospital and had involuntary facial movements (could be tardive dyskinesia, chorea or edentulous oral dyskinesia). Indu at age 56 with problems related to alcoholism. Miguelina's two sisters do not have any similar movements. The differential remains broad. The first phase of work up will consist of MRI brain, HD genetic test (extensive student counsellor given) and additional labs listed above. Plan: - labs including HD genetic testing - MRI brain - follow up in 2 months This was my initial visit with the patient. I spent 60 minutes with the patient and more than 30 minutes were spent discussion as reflected above Razia Mims MD [facility] Neurology-Movement Disorders documented in this encounter Plan of Treatment Upcoming Encounters Date Type Department Care Team (Latest Contact Info) Description 09/24/2023 10:00 AM EDT Laboratory Appointment Lab [address] [place] [address] 09/24/2023 11:30 AM EDT Office Visit [place] [address] Nenita Grimes APRN [facility] [place] [address] documented as of this encounter Results * MRI Brain wo Contrast (11/20/2016 2:36 PM EDT) Anatomical Region Laterality Modality Head Magnetic Resonan ce Impressions 11/20/2016 3:03 PM EDT Normal appearance of the basal ganglia. No significant change compared to the prior study. Narrative 11/20/2016 3:03 PM EDT EXAMINATION: MRI BRAIN WO CONTRAST CLINICAL HISTORY: chorea progressive over past year TECHNIQUE: MR of the brain performed without the use of intravenous contrast. COMPARISON: 06/15/2003 FINDINGS: The ventricles are slightly larger than they were in 2004, but remain normal for age. The basal ganglia are normal in appearance with normal bilateral caudate. There are a few very small areas of T2 signal alteration in the subcortical white matter, a common nonspecific finding. Diffusion images are normal. There is no mass effect or shift. No focal, or geographic pattern of volume loss identified. The major intracranial flow voids are normal. 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 Procedure Note Prashant Blackwood MD - 11/20/2016 EXAMINATION: MRI BRAIN WO CONTRAST CLINICAL HISTORY: chorea progressive over past year TECHNIQUE: MR of the brain performed without the use of intravenouscontrast. COMPARISON: 06/15/2003 FINDINGS: The ventricles are slightly larger than they were in 2004, butremain normal for age. The basal ganglia are normal in appearance with normalbilateral caudate. There are a few very small areas of T2 signal alteration in the subcortical white matter, a common nonspecific finding. Diffusion imagesare normal. There is no mass effect or shift. No focal, or geographic patternof volume loss identified. 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 IMPRESSION Normal appearance of the basal ganglia. No significant change compared tothe prior study. Razia Mims MD IM MRI ORDERABLES * Lyme IgG & IgM Antibody (11/20/2016 1:49 PM EDT) Lyme Screening Antibody Neg Neg [facility] Blood specimen (specimen) 11/20/2016 1:49 PM EDT 11/21/2016 8:31 AM EDT Narrative Resulting Agency Comment Spec In Lab Razia Mims MD IMMUNOLOGY ORDERAB LES Performing Organization Address [facility] Co de Phone Number [facility] [place] [address] * Ceruloplasmin (11/20/2016 1:49 PM EDT) Pathologist [facility] Ceruloplasmin 37.5 16.0 - 45.0 mg/dL [facility] Blood specimen (specimen) 11/20/2016 1:49 PM EDT 11/20/2016 2:01 PM EDT Narrative Resulting Agency Comment Spec In Lab Razia Mims MD CHEMISTRY ORDERABL ES Performing Organization Address [facility] Co de Phone Number [facility] [place] [address] * Miscellaneous Lab request (11/20/2016 1:49 PM EDT) Pathologist [facility] Misc Lab Result Request received in lab. [facility] Blood specimen (specimen) 11/20/2016 1:49 PM EDT 11/20/2016 2:01 PM EDT Narrative Resulting Agency Comment Spec In Lab Razia Mims MD HEMATOLOGY ORDERAB LES Performing Organization Address [facility] Co de Phone Number [facility] [place] [address] * Streptococcal Antibody Panel (11/20/2016 1:49 PM EDT) Pathologist [facility] ASO Titer 44 0 - 530 IU/mL [facility] Comment: Test Performed by: [address] [address] DNase B Ab <74 0 - 300 unit/mL [facility] Comment: Test Performed by: [address] [address] Blood specimen (specimen) 11/20/2016 1:49 PM EDT 11/20/2016 4:01 PM EDT Narrative Resulting Agency Comment Spec In Lab Razia Mims MD IMMUNOLOGY ORDERAB LES Performing Organization Address [facility] Co de Phone Number [facility] [place] [address] * C4 Complement (11/20/2016 1:49 PM EDT) C4 Complement 27 10 - 40 mg/dL [facility] Blood specimen (specimen) 11/20/2016 1:49 PM EDT 11/20/2016 2:01 PM EDT Narrative Resulting Agency Comment Spec In Lab Razia Mims MD CHEMISTRY ORDERABL ES Performing Organization Address [facility] Co de Phone Number [facility] [place] [address] * C3 Complement (11/20/2016 1:49 PM EDT) C3 Complement 119 90 - 180 mg/dL [facility] Blood specimen (specimen) 11/20/2016 1:49 PM EDT 11/20/2016 2:01 PM EDT Narrative Resulting Agency Comment Spec In Lab Razia Mims MD CHEMISTRY ORDERABL ES Performing Organization Address [facility] Co de Phone Number [facility] [place] [address] * T4, free (11/20/2016 1:49 PM EDT) Free T4 1.04 0.93 - 1.70 ng/dL [facility] Blood specimen (specimen) 11/20/2016 1:49 PM EDT 11/20/2016 2:01 PM EDT Narrative Resulting Agency Comment Spec In Lab Razia Mims MD CHEMISTRY ORDERABL ES Performing Organization Address [facility]/ZIP Co de Phone Number [facility] [place] [address] * ARMEN (11/20/2016 1:49 PM EDT) ARMEN Neg Neg [facility] Blood specimen (specimen) 11/20/2016 1:49 PM EDT 11/21/2016 7:30 AM EDT Narrative Resulting Agency Comment Spec In Lab Razia Mims MD IMMUNOLOGY ORDERAB LES Performing Organization Address [facility] [place] [address] * Cardiolipin Antibody Screen (11/20/2016 1:49 PM EDT) Pathologist [facility] Cardiolipin IgG <23 <=22 GPL unit(s) [facility] Comment: Ranges ? GPL ------- ? ------ Normal ?<23 Low Positive ? 23-35 Moderate Positive ?36-50 High Positive ? >50 Cardiolipin IgM <11 <=10 MPL unit(s) [facility] Comment: Ranges ?MPL ----- ?----- Normal ?<11 Low Positive ? 11-20 Moderate Positive ?21-30 High Positive ? >30 Blood specimen (specimen) 11/20/2016 1:49 PM EDT 11/21/2016 7:30 AM EDT Narrative Resulting Agency Comment Spec In Lab Razia Mims MD IMMUNOLOGY ORDERAB LES [facility] [place] [address] * (ABNORMAL) Comprehensive metabolic panel (non-fasting) (11/20/2016 1:49 PM EDT) Glucose Lvl 85 65 - 199 mg/dL [facility] Comment:Diabetes: >=200 mg/d L plus symptoms BUN 18 8 - 18 mg/dL [facility] Creatinine 1.12 0.70 - 1.20 mg/dL [facility] Comment: Please note that the pediatric reference intervals supplied above were not validated at [facility]. Results from pediatric patients should be interpreted in conjunction to the patient's age, height and muscle mass. Sodium 141 135 - 145 mmol/L [facility] Potassium 3.8 3.5 - 5.0 mmol/L [facility] Comment: Please note: ??Patients with WBC >100,000 may have falsely elevated Potassium levels. ??For accurate Potassium quantification in these patients send serum separator tube (gold top) for subsequent determinations. ??Contact the Clinical Chemistry Laboratory if there are any questions. Chloride 99 98 - 107 mmol/L [facility] CO2 31 22 - 31 mmol/L [facility] Anion Gap 11 5 - 15 mmol/L [facility] Calcium 9.6 8.5 - 10.5 mg/dL [facility] Total Protein 7.5 6.1 - 8.0 gm/dL [facility] Albumin 4.2 3.2 - 5.2 gm/dL [facility] AST 17 0 - 30 unit/L [facility] ALT 11 0 - 30 unit/L [facility] Alk Phos 53 40 - 104 unit/L [facility] Total Bilirubin 0.2 0.2 - 1.3 mg/dL [facility] Estimated GFR 51(L) >=60 [facility] Comment: This estimated GFR (eGFR) value was calculated using the MDRD equation which has been validated on patients between the ages of 18 and 70. The MDRD should not be used to assess kidney function in patients < 18 years of age or in patients with extremes of body mass, or in patients with acute kidney failure. This value should be multiplied by 1.2 for patients. For further information please copy and paste the following links into your internet browser. http://[email or web address]/DHnkdep [email or web address]://[email or web address]/DHMCnkf Blood specimen (specimen) 11/20/2016 1:49 PM EDT 11/20/2016 2:01 PM EDT Narrative Resulting Agency Comment Spec In Lab Razia Mims MD CHEMISTRY ORDERABL ES [facility] [place] [address] documented in this encounter Visit Diagnoses Diagnosis Chorea Other choreas Chorea Other choreas Stage 3a chronic kidney disease documented in this encounter Care Teams Tax Technician Relationship Specialty Start Date End Date Yumiko Tavarez MD [address] [place] [address] PCP - General Family Medicine 07/07/16 documented as of this encounter
--- OUTSIDE RECORDS SUMMARY | 2023-09-21 17:04 | XMS_ITS | Encounter Summary ---
Author Organization Formerly [facility] [place] [address] Care Team Providers Care Defence Force Senior Officer Name Role Phone Yumiko Tavarez MD Primary Care Provider [phone] Encounter Details Date Type Department Care Team (Late st Contact Info) Description 11/03/2016 Orders [place] [id number] Frank Jovel Social History Tobacco Use Types Packs/Day Years [...] 10:00 AM EDT Laboratory Appointment Lab [address] [place] [address] 09/24/2023 11:30 AM EDT Office Visit Neph[place] [address] Nenita Grimes APRN [facility] [place] [address] documented as of this encounter Visit Diagnoses Not on filedocumented in this encounter Care Teams [employer] Senior Officer Relationship Specialty Start Date End Date Yumiko Tavarez MD [address] [place] [address] PCP - General Family Medicine 07/07/16 documented as of this encounter
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
--- OUTSIDE RECORDS SUMMARY | 2023-09-21 17:04 | XMS_ITS | Encounter Summary ---
Author Organization [facility] [place] [address] Care Team Providers Care Supervisor Contingents Name Role Phone Yumiko Tavarez MD Primary Care Provider [phone] Reason for Referral * Diagnostic Test (Routine) - Closed Specialty Diagnoses / Procedures Referred By Contpayam dennis Referred To Contact Radiology Diagnoses Tremors of nervous system Procedures NM VALENTIN Scan Razia Mims MD [facility] [place] [address] [place] [address] Referral ID Status Reason Start Date Expiration Date V isits Requested Visits Authorized [id number] Closed Specialty Service Requested 12/18/2016 12/18/2017 3 3 Encounter Details Date Type Department Care Team (Late st Contact Info) Description 12/18/2016 1:30 PM EDT Office [place] [phone] Razia Mims MD [facility] [place] [address] Tremors of nervous system; Chorea; Primary Parkinsonism Social History Tobacco Use Types [...] cm (4' 10.25) 12/18/2016 1:36 PM EDT reported Body Mass Index 25.28 12/18/2016 1:36 PM EDT documented in this encounter Patient Instructions * Patient Instructions* Razia Mims MD - 12/18/2016 1:30 PM EDT Start carbidopa/levodopa (sinemet) 25/100mg 1/2 tab three times a day and then in 2 weeks increase this to 1 full tab three times daily documented in this encounter Progress Notes * Razia Mims MD - 12/18/2016 1:30 PM EDT [facility] Movement Disorders Follow Up Patient Evaluation Date of service 12/18/2016 Referring provider Yumiko Tavarez MD [address] [place] [address] Cc: involuntary movements History of present illness Miguelina Salcedo is a 51 y.o. right handed woman who presents to the movement disorders clinic for evaluation of abnormal involuntary movements. I saw her about a month ago with the impression of chorea. Initial work up including HD genetic test were normal. Today she is having notably less chorea.The movements now happen most when she is at rest. She feels like her entire right side shakes. Shealso notes staggering gait when she is walking. No falls. No FOG. Good sense of smell. She talks inher sleep. She has difficulty swallowing and had an evaluation without clear advice. She is most bothered by the symptoms of right sided shaking. History [...] ??? VERTEBROPLASTY Social History: Lives in [facility], she is retired from [employer] Family History Problem Relation Age of Onset [...] distress, well groomed, Body mass index is 25.28 kg/(m^2). HEENT: normal cephalic atraumatic, eye conjunctiva moist with no abnormal discharge, no abnormal nasal discharge Voice/language: no vocal tremor but there is mild dysarthria. Normal fluency, comprehension, namingand repetition Skin: no lesions or abrasions on [...] course of her work up. I do wantto complete labs for work up of chorea and those are listed above. Due to this onset of right side rest tremor I also ordered a Valentin scan. I do not see parkinsonian features aside from this rest tremor so the Valentin results will help guide treatment. As she is anxious for symptom relief we will try a low dose of sinemet aimed at treating the rest tremor. [...] up in 1 month Razia Mims MD [facility] Neurology-Movement Disorders documented in this encounter Plan of Treatment Upcoming Encounters Date Type Department Care Team (Latest Contact Info) Description 09/24/2023 10:00 AM EDT Laboratory Appointment Lab [address] [place] [address] 09/24/2023 11:30 AM EDT Office Visit Nephrology [place] [address] Nenita Grimes APRN [facility] [place] [address] documented as of this encounter Results * NM VALENTIN Scan (01/10/2017 3:39 PM EST) Anatomical Region Laterality Modality Nuclear Medicine Impressions 01/10/2017 4:30 PM EST Abnormal dopamine transporter scan with above findings consistent with a Parkinsonian syndrome. I have personally reviewed the image(s) and the residents interpretation and agree with the findings, Oscar Le at 01/10/2017 4:30 PM Narrative 01/10/2017 4:30 PM EST EXAMINATION: NM VALENTIN SCAN CLINICAL HISTORY: parkinsonism, per clinical history in medical chart prominent right sided rest tremor TECHNIQUE: Pretreatment with oral potassium iodide was given. Following this, I-123 ioflupane was administered intravenously in a dose of 5.3 mCi. Four hours later, tomographic imaging of the brain was performed with images reconstructed in the axial, sagittal and coronal planes COMPARISON: MRI brain 11/20/2016 FINDINGS: Moderately decreased activity in the left caudate and severely decreased activity within the left putamen. Relatively normal activity within the right caudate and putamen. Procedure Note Oscar Le MD - 01/10/2017 EXAMINATION: NM VALENTIN SCAN CLINICAL HISTORY: parkinsonism, per clinical history in medical chartprominent right sided rest tremor TECHNIQUE: Pretreatment with oral potassium iodide was given. Followingthis, I-123 ioflupane was administered intravenously in a dose of 5.3 mCi. Fourhours later, tomographic imaging of the brain was performed with imagesreconstructed in the axial, sagittal and coronal planes COMPARISON: MRI brain 11/20/2016 FINDINGS: Moderately decreased activity in the left caudate and severely decreased activity within the left putamen. Relatively normal activitywithin the right caudate and putamen. IMPRESSION Abnormal dopamine transporter scan with above findings consistent with a Parkinsonian syndrome. I have personally reviewed the image(s) and the residents interpretationand agree with the findings, Oscar Le at 01/10/2017 4:30 PM Razia Mims MD IM NM ORDERABLES documented in this encounter Visit Diagnoses Diagnosis Tremors of nervous system Abnormal involuntary movements Chorea Other choreas Primary parkinsonism Paralysis agitans Tremors of nervous system Abnormal involuntary movements Stage 3a chronic kidney disease documented in this encounter Care Teams Supervisor Contingents Relationship Specialty Start Date End Date Yumiko Tavarez MD [address] [place] [address] PCP - General Family Medicine 07/07/16 documented as of this encounter
--- OUTSIDE RECORDS SUMMARY | 2023-09-21 17:04 | XMS_ITS | Encounter Summary ---
Author Organization [facility] [place] [address] Care Team Providers Care Tile Layer Drainage Name Role Phone Serafin Glass MD Primary Care Provider + Encounter Details Date Type Department Care Team (Late st Contact Info) Description 01/23/2013 Orders [place] [phone] Marty Nick MD [facility] [place] [address] Social History Tobacco Use Types Packs/Day Years [...] 10:00 AM EDT Laboratory Appointment Lab [address] [place] [phone] 09/24/2023 11:30 AM EDT Office Visit Neph[place] [address] Nenita Grimes APRN [facility] [place] [address] documented as of this encounter Procedures Procedure Name Priority Date/Time Associated Diagnosis Comments FILM LIBRARY STORAGE ONLY DX SPINE Routine 01/23/2013 8:13 AM EST documented in this encounter Results * Film Library- Storage only DX Spine (01/23/2013 8:13 AM EST) Anatomical Region Laterality Modality Other 01/23/2013 8:13 AM EST Narrative 03/16/2014 8:13 AM EST This is a Non-reportable exam Procedure Note ANTHONY, UNSIGNED REPORT - 03/16/2014 This is a Non-reportable exam Marty Nick MD IM FILM LIBRARY ORDERABLES documented in this encounter Visit Diagnoses Not on filedocumented in this encounter Care Teams Tile Layer Drainage Relationship Specialty Start Date End Date Serafin Glass MD [address] [place] [address] PCP - General 01/25/10 07/06/16 documented as of this encounter
--- OUTSIDE RECORDS SUMMARY | 2023-09-21 17:04 | XMS_ITS | Encounter Summary ---
Author Organization [facility] [place] [address] Care Team Providers Care Supervisor In Circuit Testing Name Role Phone Serafin Glass MD Primary Care Provider + Encounter Details Date Type Department Care Team (Late st Contact Info) Description 11/08/2004 Orders Only [place] [phone] Marty Nick MD [facility] [place] [address] Social History Tobacco Use Types Packs/Day Years [...] 10:00 AM EDT Laboratory Appointment Lab [address] [place] [phone] 09/24/2023 11:30 AM EDT Office Visit Nephrology [place] [address] Nenita Grimes APRN [facility] [place] [address] documented as of this encounter Procedures Procedure Name Priority Date/Time Associated Diagnosis Comments FILM LIBRARY STORAGE ONLY DX SPINE Routine 11/08/2004 8:40 AM EDT documented in this encounter Results * Film Library- Storage only DX Spine (11/08/2004 8:40 AM EDT) Anatomical Region Laterality Modality Other 11/08/2004 8:40 AM EDT Narrative 03/16/2014 8:40 AM EST This is a Non-reportable exam Procedure Note ANTHONY, UNSIGNED REPORT - 03/16/2014 This is a Non-reportable exam Marty Nick MD IM FILM LIBRARY ORDERABLES documented in this encounter Visit Diagnoses Not on filedocumented in this encounter Care Teams Supervisor In Circuit Testing Relationship Specialty Start Date End Date Serafin Glass MD [address] [place] [address] PCP - General 01/25/10 07/06/16 documented as of this encounter
--- OUTSIDE RECORDS SUMMARY | 2023-09-21 17:04 | XMS_ITS | Encounter Summary ---
Author Organization [facility] [place] [address] Care Team Providers Care Filling Operator Name Role Phone Serafin Glass MD Primary Care Provider + Encounter Details Date Type Department Care Team (Late st Contact Info) Description 02/09/2011 Orders [place] [phone] Marty Nick MD [facility] [place] [address] Social History Tobacco Use Types Packs/Day Years [...] 10:00 AM EDT Laboratory Appointment Lab [address] [place] [phone] 09/24/2023 11:30 AM EDT Office Visit [place] [address] Nenita Grimes APRN [facility] [place] [address] documented as of this encounter Procedures Procedure Name Priority Date/Time Associated Diagnosis Comments FILM LIBRARY STORAGE ONLY MR SPINE Routine 02/09/2011 8:26 AM EST documented in this encounter Results * Film Library- Storage only MR Spine (02/09/2011 8:26 AM EST) Anatomical Region Laterality Modality Other 02/09/2011 8:26 AM EST Narrative 03/16/2014 8:26 AM EST This is a Non-reportable exam Procedure Note ANTHONY, UNSIGNED REPORT - 03/16/2014 This is a Non-reportable exam Marty Nick MD IM FILM LIBRARY ORDERABLES documented in this encounter Visit Diagnoses Not on filedocumented in this encounter Care Teams Filling Operator Relationship Specialty Start Date End Date Serafin Glass MD [address] [place] [address] PCP - General 01/25/10 07/06/16 documented as of this encounter
--- OUTSIDE RECORDS SUMMARY | 2023-09-21 17:04 | XMS_ITS | Encounter Summary ---
Author Organization [facility] [place] [address] Care Team Providers Care Social And Political Studies Professor Name Role Phone Yumiko Tavarez MD Primary Care Provider [phone] Encounter Details Date Type Department Care Team (Late st Contact Info) Description 02/05/2017 1:00 PM EST Office Visit Neurology at [facility] [place] [address] Razia Mims MD [facility] [place] [address] Primary Parkinsonism Social History Tobacco Use Types [...] cm (4' 10.25) 02/05/2017 1:27 PM EST reported Body Mass Index 23.75 02/05/2017 1:27 PM EST documented in this encounter Progress Notes * Razia Mims MD - 02/05/2017 1:00 PM EST [facility] Movement Disorders Follow Up Patient Evaluation Date of service 02/05/2017 Referring provider Yumiko Tavarez MD [address] [place] [address] Cc: tremor History of present illness Miguelina [...] LAPAROSCOPIC ??? VERTEBROPLASTY Social History: Lives in [facility], she is retired from [email or web address]. Remote history of cocaine use Family History [...] distress, well groomed, Body mass index is 23.75 kg/(m^2). HEENT: normal cephalic atraumatic, eye conjunctiva [...] not have side effects but also has not noted benefit. I increased this to 2 tabs [...] consideration of ADCY5 testing Razia Mims MD [facility] Neurology-Movement Disorders documented in this encounter Plan of Treatment Upcoming Encounters Date Type Department Care Team (Latest Contact Info) Description 09/24/2023 10:00 AM EDT Laboratory Appointment Lab [address] [place] [address] 09/24/2023 11:30 AM EDT Office Visit Nephrology [place] [address] Nenita Grimes APRN [facility] [place] [address] documented as of this encounter Visit Diagnoses Diagnosis Primary parkinsonism Paralysis agitans Stage 3a chronic kidney disease documented in this encounter Care Teams Social And Political Studies Professor Relationship Specialty Start Date End Date Yumiko Tavarez MD [address] [place] [address] PCP - General Family Medicine 07/07/16 documented as of this encounter
--- OUTSIDE RECORDS SUMMARY | 2023-09-21 17:04 | XMS_ITS | Encounter Summary ---
Author Organization [facility] [place] [address] Care Team Providers Care Drum Stock Clerk Name Role Phone Serafin Glass MD Primary Care Provider + Encounter Details Date Type Department Care Team (Late st Contact Info) Description 12/05/2005 Orders [place] [phone] Marty Nick MD [facility] [place] [address] Social History Tobacco Use Types Packs/Day Years [...] 10:00 AM EDT Laboratory Appointment Lab [address] [place] [phone] 09/24/2023 11:30 AM EDT Office Visit [place] [address] Nenita Grimes APRN [facility] [address] documented as of this encounter Procedures Procedure Name Priority Date/Time Associated Diagnosis Comments FILM LIBRARY STORAGE ONLY DX SPINE Routine 12/05/2005 8:37 AM EDT documented in this encounter Results * Film Library- Storage only DX Spine (12/05/2005 8:37 AM EDT) Anatomical Region Laterality Modality Other 12/05/2005 8:37 AM EDT Narrative 03/16/2014 8:37 AM EST This is a Non-reportable exam Procedure Note ANTHONY, UNSIGNED REPORT - 03/16/2014 This is a Non-reportable exam Marty Nick MD IM FILM LIBRARY ORDERABLES documented in this encounter Visit Diagnoses Not on filedocumented in this encounter Care Teams Drum Stock Clerk Relationship Specialty Start Date End Date Serafin Glass MD [address] [place] [address] PCP - General 01/25/10 07/06/16 documented as of this encounter
--- OUTSIDE RECORDS SUMMARY | 2023-09-21 17:04 | XMS_ITS | Encounter Summary ---
Author Organization [facility] [place] [address] Care Team Providers Care Solar Photovoltaic Systems Engineer Name Role Phone Yumiko Tavarez MD Primary Care Provider [phone] Encounter Details Date Type Department Care Team (Late st Contact Info) Description 01/11/2017 Telephone Neurology at [facility] [place] [address] Razia Mims MD [facility] [place] [address] Social History Tobacco Use Types Packs/Day Years [...] encounter Miscellaneous Notes * Telephone Encounter - Razia Mims MD - [...] but I would like to give the higher dose of sinemet a longer trial and will have her appointment moved to February. Razia Mims MD [facility] Neurology-Movement Disorders documented in this encounter Plan of Treatment Upcoming Encounters Date Type Department Care Team (Latest Contact Info) Description 09/24/2023 10:00 AM EDT Laboratory Appointment Lab [address] [place] [address] 09/24/2023 11:30 AM EDT Office Visit Neph[place] [address] Nenita Grimes, [employer] [facility] [place] [address] documented as of this encounter Visit Diagnoses Not on filedocumented in this encounter Care Teams Solar Photovoltaic Systems Engineer Relationship Specialty Start Date End Date Yumiko Tavarez MD [address] [place] [address] PCP - General Family Medicine 07/07/16 documented as of this encounter
--- OUTSIDE RECORDS SUMMARY | 2023-09-21 17:04 | XMS_ITS | Encounter Summary ---
Author Organization [facility] [place] [address] Care Team Providers Care Freight Separator Name Role Phone Serafin Glass MD Primary Care Provider + Encounter Details Date Type Department Care Team (Late st Contact Info) Description 03/17/2014 10:45 AM EST Office [place] [address] Marty Nick MD [facility] [place] [place] [address] Chronic pain syndrome Discharge Disposition: Home Social History Tobacco Use Types Packs/Day Years Used Date Smoking Tobacco: Every Day Cigarettes 0.5 25 Smokeless Tobacco: Never Sex and Gender Information Value Date Recorded [...] documented in this encounter Progress Notes * Marty Nick MD - 03/17/2014 12:02 PM [...] under the care of Natalia Monge at [facility] who took over prescribing her opioids, [...] is as mentioned. She lives alone in [place], [place]. She has no prior history of [...] was seen by Dr. Iain gray at [facility] at about the same time in 2004. [...] help, but I did discuss the functional scientologist program with her and I discussed an [...] at that time either. I reviewed the [place] Prescription Monitoring Program database today and her [...] 10:00 AM EDT Laboratory Appointment Lab [address] [place] [address] 09/24/2023 11:30 AM EDT Office Visit Nephrology [place] [address] Nenita Grimes, ROD POINTER [facility] [place] [address] documented as of this encounter Visit Diagnoses Diagnosis Chronic pain syndrome Stage 3a chronic kidney disease documented in this encounter Care Teams Freight Separator Relationship Specialty Start Date End Date Serafin Glass MD [address] [place] [address] PCP - General 01/25/10 07/06/16 documented as of this encounter
--- OUTSIDE RECORDS SUMMARY | 2023-09-21 17:04 | XMS_ITS | Encounter Summary ---
Author Organization [facility] [place] [address] Care Team Providers Care Ring Attacher Name Role Phone Yumiko Tavarez MD Primary Care Provider [phone] Encounter Details Date Type Department Care Team (Late st Contact Info) Description 08/12/2018 Orders [place] [address] Razia Mims MD [facility] [place] [address] Social History Tobacco Use Types Packs/Day Years [...] 10:00 AM EDT Laboratory Appointment Lab [address] [place] [address] 09/24/2023 11:30 AM EDT Office Visit Nephrology [place] [address] Nenita Grimes APRN [facility] [place]IO [place], [place] [address] documented as of this encounter Visit Diagnoses Not on filedocumented in this encounter Care Teams Ring Attacher Relationship Specialty Start Date End Date Yumiko Tavarez MD [address] [place] [address] PCP - General Family Medicine 07/07/16 documented as of this encounter
--- OUTSIDE RECORDS SUMMARY | 2023-09-21 17:04 | XMS_ITS | Encounter Summary ---
Author Organization [facility] [place] [address] Care Team Providers Care Financial Administration Officer Name Role Phone Yumiko Tavarez MD Primary Care Provider [phone] Encounter Details Date Type Department Care Team (Late st Contact Info) Description 08/12/2018 Telephone Neurology at [facility] [place] [place] [address] Razia Mims MD [facility] [address] Social History Tobacco Use Types Packs/Day Years [...] Miscellaneous Notes * Telephone Encounter - Carline Don RN - [...] effectiveness of increased dose at that time. * Telephone Encounter - Carline Don RN - [...] 10:00 AM EDT Laboratory Appointment Lab [address] [place] [address] 09/24/2023 11:30 AM EDT Office Visit [place] [address] Vanita-Nenita Chris, [facility] [place] [address] documented as of this encounter Visit Diagnoses Not on filedocumented in this encounter Care Teams Financial Administration Officer Relationship Specialty Start Date End Date Yumiko Tavarez MD [address] [place] [address] PCP - General Family Medicine 07/07/16 documented as of this encounter
--- OUTSIDE RECORDS SUMMARY | 2023-09-21 17:04 | XMS_ITS | Encounter Summary ---
Author Organization [facility] [place] [address] Care Team Providers Care Director Of District Office Name Role Phone Unavailable Primary Care Provider Unavailabl e Encounter Details Date Type Department Care Team (Latest Contact Info) Description 06/12/2007 - 06/12/2007 11:59 PM EDT Hospital Encounter [place] [phone] Yumiko Tavarez MD [address] [place] [address] Pain Discharge Disposition: Home Social History Tobacco Use [...] 10:00 AM EDT Laboratory Appointment Lab [address] [place] [address] 09/24/2023 11:30 AM EDT Office Visit [place] [address] Nenita Grimes, [facility] [place] [address] documented as of this encounter Procedures Procedure Name Priority Date/Time Associated Diagnosis Comments FILM LIBRARY STORAGE ONLY MR SPINE Routine 06/12/2007 12:00 AM EDT Pain documented in this encounter Results * Film Library- Storage Only MR Spine (06/12/2007 12:00 AM EDT) Narrative SYL - 07/13/2016 2:47 PM EDT This exam is for storage only and is auto-finalizing. Yumiko Tavarez MD [facility] FILM LIBRARY ORD ERABLES [place], [place] documented in this encounter Visit Diagnoses Diagnosis Pain Generalized pain Stage 3a chronic kidney disease documented in this encounter
--- OUTSIDE RECORDS SUMMARY | 2023-09-21 17:04 | XMS_ITS | Encounter Summary ---
Author Organization [facility] [place] [address] Care Team Providers Care Belt Buckle Maker Name Role Phone Yumiko Tavarez MD Primary Care Provider [phone] Reason for Visit * Reason Onset Date Comments Other 03/01/2018 Encounter Details Date Type Department Care Team (Late st Contact Info) Description 03/01/2018 Telephone Neurology at [facility], [place] [address] Razia Mims MD [facility] [place] [address] Other Social History Tobacco Use Types Packs/Day [...] been scheduled to see Dr Mims 03/11/18. * Telephone Encounter - Carline Don RN - 03/01/2018 10:04 AM EST Reason for Call: Patient would like to try another medication. Patient Report: Patient was scheduled for follow-up today and was unable to make it due to bad weather. She has been rescheduled to next available in July. Patient feels that her Parkinson's disease has worsened. She has totally stopped the carbidopa-levodopa as [...] minutes to urinate due to the movements. Patientis also having trouble with balance.Patient is hoping to have another medication for Parkinson's prescribed to help with the movements. Plan/Intervention/Follow Up - Report forwarded to Dr Mims for review and comment. Pt/caller aware they will be called back with input when available and to call back in the interim if additional questions or change arise before they hear back from this office. Pt/caller agreeable to this plan. * Telephone Encounter - Monserrat Wagner - 03/01/2018 8:08 AM EST Clinical Software Development Advisor Message Caller: Patient If not Pt / Relation to pt: Call back Number: Best time to reach caller: Anytime Reason for call: Patient would like a call to discuss medication? Message/information for the nurse: Patient has not been taking her Carbidopa-Levadopa for months and would like to know what she can do or take to help with her Parkinsons. Disposition of Call ?? Routine Message sent to the Nurse documented in this encounter Plan of Treatment Upcoming Encounters Date Type Department Care Team (Latest Contact Info) Description 09/24/2023 10:00 AM EDT Laboratory Appointment Lab [address] [place] [address] 09/24/2023 11:30 AM EDT Office Visit Neph[place] [address] Nenita Grimes, YANN [facility] [place] [address] documented as of this encounter Visit Diagnoses Not on filedocumented in this encounter Care Teams Belt Buckle Maker Relationship Specialty Start Date End Date Yumiko Tavarez MD [address] [place] [address] PCP - General Family Medicine 07/07/16 documented as of this encounter
--- OUTSIDE RECORDS SUMMARY | 2023-09-21 17:04 | XMS_ITS | Encounter Summary ---
[place] [address] Care Team Providers Care Laser Systems Engineer Name Role Phone Yumiko Tavarez MD Primary Care Provider [phone] Reason for Referral * Diagnostic Test (Routine) - Closed Specialty Diagnoses / Procedures Referred By Warren dennis Referred To Contact Radiology Diagnoses Chorea Procedures MRI Brain wo Contrast Razia Mims MD [facility] [place] [address] [place] [address] Referral ID Status Reason Start Date Expiration Date V isits Requested Visits Authorized [id number] Closed Specialty Service Requested 11/07/2016 02/05/2017 1 1 Reason for Visit * Diagnostic Test (Routine) - Closed Specialty Diagnoses / Procedures Referred By Warren dennis Referred To Contact Radiology Diagnoses Chorea Procedures MRI Brain wo Contrast Razia Mims MD [facility] [place] [address] [place] [address] Referral ID Status Reason Start Date Expiration Date V isits Requested Visits Authorized [id number] Closed Specialty Service Requested 11/07/2016 02/05/2017 1 1 Encounter Details Date Type Department Care Team (Latest Contact Info) Description 11/20/2016 1:54 PM EDT - 11/20/2016 11:59 PM EDT Hospital [place] [address] Razia Mims MD [facility] [place] [address] Chorea Discharge Disposition: Home Social History Tobacco Use [...] Start Date End Date cyanocobalamin 1,000 mcg Tablet Take 1,000 mcg [...] hours as needed for Pain. cyclobenzaprine (FLEXERIL) 10 mg Tablet Take 10 mg by mouth 3 times daily as needed for Muscle spasms. 12/18/2016 documented as of this encounter Plan of Treatment Upcoming Encounters Date Type Department Care Team (Latest Contact Info) Description 09/24/2023 10:00 AM EDT Laboratory Appointment Lab [address] [place] [address] 09/24/2023 11:30 AM EDT Office Visit Neph[place] [address] Nenita Grimes, YANN [facility] [place] [address] documented as of this encounter Procedures Procedure Name Priority Date/Time Associated Diagnosis Comments MRI BRAIN WO CONTRAST Routine 11/20/2016 2:36 PM EDT Chorea documented in this encounter Results * MRI Brain wo [...] compared tothe prior study. Razia Mims MD IMG MRI ORDERABLES documented in this encounter Visit Diagnoses Diagnosis Chorea Other choreas Stage 3a chronic kidney disease documented in this encounter Care Teams Laser Systems Engineer Relationship Specialty Start Date End Date Yumiko Tavarez MD [address] [place] [address] PCP - General Family Medicine 07/07/16 documented as of this encounter
--- OUTSIDE RECORDS SUMMARY | 2023-09-21 17:04 | XMS_ITS | Encounter Summary ---
Author Organization [facility] [place] [address] Care Team Providers Care Pickle Water Pump Operator Name Role Phone Serafin Glass MD Primary Care Provider + Encounter Details Date Type Department Care Team (Late st Contact Info) Description 01/12/2011 Orders [place] [address] Marty Nick MD [facility] [place] [address] Social History Tobacco Use Types Packs/Day Years [...] 10:00 AM EDT Laboratory Appointment Lab [address] [place] [address] 09/24/2023 11:30 AM EDT Office Visit [place] [address] Nenita Grimes APRN [facility] [place] [address] documented as of this encounter Procedures Procedure Name Priority Date/Time Associated Diagnosis Comments FILM LIBRARY STORAGE ONLY DX SPINE Routine 01/12/2011 8:33 AM EST documented in this encounter Results * Film Library- Storage only DX Spine (01/12/2011 8:33 AM EST) Anatomical Region Laterality Modality Other 01/12/2011 8:33 AM EST Narrative 03/16/2014 8:33 AM EST This is a Non-reportable exam Procedure Note ANTHONY, UNSIGNED REPORT - 03/16/2014 This is a Non-reportable exam Marty Nick MD IM FILM LIBRARY ORDERABLES documented in this encounter Visit Diagnoses Not on filedocumented in this encounter Care Teams Pickle Water Pump Operator Relationship Specialty Start Date End Date Serafin Glass MD [address] [place] [address] PCP - General 01/25/10 07/06/16 documented as of this encounter
--- OUTSIDE RECORDS SUMMARY | 2023-09-21 17:04 | XMS_ITS | Encounter Summary ---
Author Organization [facility] [place] [address] Care Team Providers Care [facility]oc Name Role Phone Yumiko Tavarez MD Primary Care Provider [phone] Encounter Details Date Type Department Care Team (Late st Contact Info) Description 09/12/2018 11:00 AM EDT Office Visit Neurology at [facility] [place] [address] Razia Mims MD [facility] [place] [address] Primary Parkinsonism Social History Tobacco Use Types [...] 148.6 cm (4' 10.5) 09/12/2018 10:53 AM E DT reported Body Mass Index 27.32 09/12/2018 10:53 AM EDT documented in this encounter Patient Instructions * Patient Instructions* Razia Mims MD - 09/12/2018 11:00 AM EDT Tapering off the artane Take twice a day for 5 days then daily for 5 days then stop Start on the pramipexole taking 1 tab three times daily for two weeks then increase to 2 tabs threetimes daily, then check in to let me know how this is working documented in this encounter Progress Notes * Razia Mims MD - 09/12/2018 11:00 AM EDT [facility] Movement Disorders Follow Up Patient Evaluation Date of service 09/12/2018 Referring provider Yumiko Tavarez MD [address] [place] [address] Cc: tremor History of present illness Miguelina [...] , Rfl: ??? naloxone (NARCAN) 4 mg/actuation [place], Non-Aerosol, 1 spray by Nasal route as [...] once a week., Disp: , Rfl: ??? denosumab (PROLIA) 60 mg/mL Syringe, Inject 60 mg subcutaneously Q6 Months., Disp: , Rfl: ??? zolpidem (AMBIEN) 10 mg Tablet, Take 10 mg by mouth nightly., Disp: , Rfl: ??? oxyCODONE-acetaminophen (PERCOCET) 10-325 mg Tablet, Take 1 tablet by mouth every 6 hours as needed for Pain., Disp: , Rfl: Social History: Lives in [facility], she is retired from [employer]. Remote history of cocaine use (2 times only) Review of Systems - All others negative except forgetfulness, back pain, difficulty walking, near falls Physical Exam Most Recent Vitals: 09/12/18 1053 BP: 126/76 Pulse: 61 General: the patient appears stated age, not in any acute distress, well groomed, Body mass index is 27.32 kg/m??. HEENT: normal cephalic atraumatic, eye conjunctiva [...] or other genetic testing Razia Mims MD [facility] Neurology-Movement Disorders documented in this encounter Plan of Treatment Upcoming Encounters Date Type Department Care Team (Latest Contact Info) Description 09/24/2023 10:00 AM EDT Laboratory Appointment Lab [address] [place] [address] 09/24/2023 11:30 AM EDT Office Visit [place] [address] Nenita Grimes APRN [facility] [place] [address] documented as of this encounter Visit Diagnoses Diagnosis Primary parkinsonism Paralysis agitans Stage 3a chronic kidney disease documented in this encounter Care Teams [facility] Relationship Specialty Start Date End Date Yumiko Tavarez MD [address] [place] [address] PCP - General Family Medicine 07/07/16 documented as of this encounter
--- OUTSIDE RECORDS SUMMARY | 2023-09-21 17:04 | XMS_ITS | Encounter Summary ---
Author Organization [facility] [place] [address] Care Team Providers Care Lift Manager Name Role Phone Serafin Glass MD Primary Care Provider + Encounter Details Date Type Department Care Team (Late st Contact Info) Description 07/23/2012 Orders [place] [address] Marty Nick MD [facility] [place] [address] Social History Tobacco Use Types Packs/Day Years [...] 10:00 AM EDT Laboratory Appointment Lab [address] [place] [address] 09/24/2023 11:30 AM EDT Office Visit [place] [address] Nenita Grimes APRN [facility] [place] [address] documented as of this encounter Procedures Procedure Name Priority Date/Time Associated Diagnosis Comments FILM LIBRARY STORAGE ONLY DX SPINE Routine 07/23/2012 8:11 AM EDT documented in this encounter Results * Film Library- Storage only DX Spine (07/23/2012 8:11 AM EDT) Anatomical Region Laterality Modality Other 07/23/2012 8:11 AM EDT Narrative 03/16/2014 8:11 AM EST This is a Non-reportable exam Procedure Note ANTHONY, UNSIGNED REPORT - 03/16/2014 This is a Non-reportable exam Marty Nick MD IM FILM LIBRARY ORDERABLES documented in this encounter Visit Diagnoses Not on filedocumented in this encounter Care Teams Lift Manager Relationship Specialty Start Date End Date Serafin Glass MD [address] [place] [address] PCP - General 01/25/10 07/06/16 documented as of this encounter
--- OUTSIDE RECORDS SUMMARY | 2023-09-21 17:04 | XMS_ITS | Encounter Summary ---
Author Organization [facility] [place] [address] Care Team Providers Care Fondant Machine Operator Name Role Phone Serafin Glass MD Primary Care Provider + Encounter Details Date Type Department Care Team (Late st Contact Info) Description 01/23/2013 Orders [place] [address] Marty Nick MD [facility] [place] [address] Social History Tobacco Use Types Packs/Day Years [...] 10:00 AM EDT Laboratory Appointment Lab [address] [place] [address] 09/24/2023 11:30 AM EDT Office Visit [place] [address] Nenita Grimes APRN [facility] [place] [address] documented as of this encounter Procedures Procedure Name Priority Date/Time Associated Diagnosis Comments FILM LIBRARY- STORAGE ONLY DXA IMAGES Routine 01/23/2013 8:18 AM EST documented in this encounter Results * Film Library- storage only dexa images (01/23/2013 8:18 AM EST) Anatomical Region Laterality Modality Other 01/23/2013 8:18 AM EST Narrative 03/16/2014 8:19 AM EST This is a Non-reportable exam Procedure Note ANTHONY, UNSIGNED REPORT - 03/16/2014 This is a Non-reportable exam Marty Nick MD IM FILM LIBRARY ORDERABLES documented in this encounter Visit Diagnoses Not on filedocumented in this encounter Care Teams Fondant Machine Operator Relationship Specialty Start Date End Date Serafin Glass MD [address] [place] [address] PCP - General 01/25/10 07/06/16 documented as of this encounter
--- OUTSIDE RECORDS SUMMARY | 2023-09-21 17:04 | XMS_ITS | Encounter Summary ---
Author Organization [facility] [place] [address] Care Team Providers Care Cloth Shrinking Tester Name Role Phone Serafin Glass MD Primary Care Provider + Encounter Details Date Type Department Care Team (Late st Contact Info) Description 02/23/2011 Orders [place] [address] Marty Nick MD [facility] [place] [address] Social History Tobacco Use Types Packs/Day Years [...] 10:00 AM EDT Laboratory Appointment Lab [address] [place] [address] 09/24/2023 11:30 AM EDT Office Visit [place]ph[place] [address] Nenita Grimes APRN [facility] [place] [address] documented as of this encounter Procedures Procedure Name Priority Date/Time Associated Diagnosis Comments FILM LIBRARY STORAGE ONLY MR SPINE Routine 02/23/2011 8:23 AM EST documented in this encounter Results * Film Library- Storage only MR Spine (02/23/2011 8:23 AM EST) Anatomical Region Laterality Modality Other 02/23/2011 8:23 AM EST Narrative 03/16/2014 8:23 AM EST This is a Non-reportable exam Procedure Note ANTHONY, UNSIGNED REPORT - 03/16/2014 This is a Non-reportable exam Marty Nick MD IM FILM LIBRARY ORDERABLES documented in this encounter Visit Diagnoses Not on filedocumented in this encounter Care Teams Cloth Shrinking Tester Relationship Specialty Start Date End Date Serafin Glass MD [address] [place] [address] PCP - General 01/25/10 07/06/16 documented as of this encounter
--- OUTSIDE RECORDS SUMMARY | 2023-09-21 17:04 | XMS_ITS | Encounter Summary ---
Author Organization [facility] [place] [address] Care Team Providers Care Shipping Specialist Name Role Phone Yumiko Tavarez MD Primary Care Provider [phone] Encounter Details Date Type Department Care Team (Late st Contact Info) Description 05/12/2018 [place] [address] Razia Mims MD [facility] [place] [address] Social History Tobacco Use Types Packs/Day Years [...] 10:00 AM EDT Laboratory Appointment Lab [address] [place] [address] 09/24/2023 11:30 AM EDT Office Visit [place] [address] Nenita Grimes APRN [facility] [place] [place], [place] [address] documented as of this encounter Visit Diagnoses Not on filedocumented in this encounter Care Teams Shipping Specialist Relationship Specialty Start Date End Date Yumiko Tavarez MD [address] [place] [address] PCP - General Family Medicine 07/07/16 documented as of this encounter
--- OUTSIDE RECORDS SUMMARY | 2023-09-21 17:04 | XMS_ITS | Encounter Summary ---
[place] [address] Care Team Providers Care Ware Dresser Name Role Phone Yumiko Tavarez MD Primary Care Provider [phone] Reason for Referral * Diagnostic Test (Routine) - Closed Specialty Diagnoses / Procedures Referred By Contac t Referred To Contact Radiology Diagnoses Tremors of nervous system Procedures NM IRMA Scan Razia Mims MD [facility] [place] [address] [place] [address] Referral ID Status Reason Start Date Expiration Date V isits Requested Visits Authorized [id number] Closed Specialty Service Requested 12/18/2016 12/18/2017 3 3 Reason for Visit * Diagnostic Test (Routine) - Closed Specialty Diagnoses / Procedures Referred By Contac t Referred To Contact Radiology Diagnoses Tremors of nervous system Procedures NM IRMA Scan Razia Mims MD [facility] [place] [address] [place] [address] Referral ID Status Reason Start Date Expiration Date V isits Requested Visits Authorized [id number] Closed Specialty Service Requested 12/18/2016 12/18/2017 3 3 Encounter Details Date Type Department Care Team (Latest Contact Info) Description 01/10/2017 9:57 AM EST - 01/10/2017 2:31 PM EST Hospital Encounter [place] [address] Razia Mims MD [place] [address] Tremors of nervous system Discharge Disposition: Home Social History Tobacco Use [...] End Date folic acid (FOLVITE) 1 mg Tablet Take [...] every 6 hours as needed for Pain. MAGNESIUM PHOSPHATE, BULK, MISC Take 250 mg by mouth daily. 08/06/2017 tiZANidine (ZANAFLEX) 4 mg Tablet Take 4 mg by mouth 3 times daily. 08/06/2017 carbidopa-levodopa (SINEMET) 25-100 mg Tablet Take 1 tablet by mouth 3 times daily. 90 tablet 3 12/18/2016 01/22/2017 documented as of this encounter Plan of Treatment Upcoming Encounters Date Type Department Care Team (Latest Contact Info) Description 09/24/2023 10:00 AM EDT Laboratory Appointment Lab [address] [place] [address] 09/24/2023 11:30 AM EDT Office Visit Nephrology [place] [address] Nenita Grimes APRN [facility] [place] [address] documented as of this encounter Procedures Procedure Name Priority Date/Time Associated Diagnosis Comments NM BRAIN IMAGING FOR PARKINSONS DISEASE Routine 01/10/2017 3:39 PM EST Tremors of nervous system documented in this encounter Results * NM IRMA Scan (01/10/2017 3:39 PM EST) [...] NM IRMA SCAN CLINICAL HISTORY: parkinsonism, per clinical history [...] Oscar Le MD - 01/10/2017 EXAMINATION: NM IRMA SCAN CLINICAL HISTORY: parkinsonism, per clinical history [...] at 01/10/2017 4:30 PM Razia Mims MD IMG NM ORDERABLES documented in this encounter Visit Diagnoses Diagnosis Tremors of nervous system Abnormal involuntary movements Stage 3a chronic kidney disease documented in this encounter Care Teams Ware Dresser Relationship Specialty Start Date End Date Yumiko Tavarez MD [address] [place] [address] PCP - General Family Medicine 07/07/16 documented as of this encounter
--- OUTSIDE RECORDS SUMMARY | 2023-09-21 17:04 | XMS_ITS | Encounter Summary ---
Author Organization [facility] [place] [address] Care Team Providers Care Senior Project Coordinator Name Role Phone Yumiko Tavarez MD Primary Care Provider [phone] Encounter Details Date Type Department Care Team (Late st Contact Info) Description 11/20/2016 1:40 PM EDT Laboratory Appointment Lab [address] [place] [phone] [place] Social History Tobacco Use Types Packs/Day [...] 10:00 AM EDT Laboratory Appointment Lab [address] [place] [phone] 09/24/2023 11:30 AM EDT Office Visit Ne[place] [address] Nenita Grimes, YANN [facility] [place] [address] documented as of this encounter Procedures Procedure Name Priority Date/Time Associated Diagnosis Comments MISC JONES TEST-JONES Routine 11/20/2016 1 :50 PM EDT MISCELLANEOUS LAB REQUEST Routine 11/20/2016 1:49 PM EDT Chorea LYME IGG & IGM ANTIBODY Routine 11/20/2016 1:49 PM EDT Chorea HEMOGRAM Routine 11/20/2016 1:49 PM EDT Chorea DIFFERENTIAL, AUTOMATED Routine 11/20/2016 1:49 PM EDT Chorea CERULOPLASMIN Routine 11/20/2016 1:49 PM EDT Chorea CARDIOLIPIN ANTIBODY SCREEN Routine 11/20/2016 1:49 PM EDT Chorea CBC (WITH DIFF) Routine 11/20/2016 1:49 PM EDT Chorea STREPTOCOCCAL ANTIBODY PANEL Routine 11/20/2016 1:49 PM EDT Chorea C3 COMPLEMENT Routine 11/20/2016 1:49 PM EDT Chorea C4 COMPLEMENT Routine 11/20/2016 1:49 PM EDT Chorea ARMEN ANTIBODY SCREEN Routine 11/20/2016 1 :49 PM EDT Chorea T4, FREE Routine 11/20/2016 1:49 PM EDT Chorea COMPREHENSIVE METABOLIC PANEL (NON-FASTING) Routine 11/20/2016 1:49 PM EDT Chorea documented in this encounter Results * [facility] Jonse Test-Jones (11/20/2016 1:50 PM EDT) [facility] Jones Test ?Result ? Flag ??Unit ??RefValue Krysta Disease Analysis ??Result Summary ?NEGATIVE ??Result ?CAG repeat: 17 and 18 (Normal) ??Interpretation ?SEE COMMENTS ?This result suggests that this individual is very unlikely ?to have Bonner disease (HD). To date, alterations other ?than CAG expansions in the HTT gene have not been ?associated with HD. This result does not rule out the ?diagnosis of other inherited neurodegenerative disorders ?that have overlapping clinical features with HD. ?A genetic consultation may be of benefit. ? -ADDITIONAL INFORMATION--------- ?A PCR-based assay was utilized to detect CAG repeat ?expansions in exon 1 of the HTT gene. We estimate that the ?number of CAG repeats is correct within +/-5%. ?Normal: <27 ?Intermediate: 27-35 ?Reduced penetrance: 36-39 ?Full penetrance: >39 ?An online research opportunity called Mibio ?([employer] ), a project of [employer], is available for ?the recipient of this genetic test. This patient registry ?collects de-identified genetic and health information to ?advance the knowledge of genetic variants. [facility] is a ?collaborator of [employer]. This may not be applicable for all ?tests. ?Test results should be interpreted in the context of ?clinical findings, family history, and other laboratory ?data. Misinterpretation of results may occur if the ?information provided is inaccurate or incomplete. ?Rare polymorphisms exist that could lead to false-negative ?or false-positive results. If results obtained do not match ?the clinical findings, additional testing should be ?considered. ?Bone Marrow transplants from allogenic donors will ?interfere with testing. Call [facility] for ?instructions for testing patients who have received a bone ?marrow transplant. ?Multiple in-silico evaluation tools may have been used to ?assist in the interpretation of these results. Of note, the ?sensitivity and specificity of these tools for the ?determination of pathogenicity is currently unvalidated. ?This test was developed and its performance characteristics ?determined by [facility] in a manner consistent with CLIA ?requirements. This test has not been cleared or approved by ?the U.S. Food and Drug Administration. ??Reason for Referral ? SEE COMMENTS ?Evaluation for a diagnosis of Bonner disease (HD). Test ?for the presence of an expansion in the HTT gene. ??Specimen ?WB Whole Blood ??Released By ? Angelica Crawford M.D. ?Test Performed by: ?[facility] ?[address] LABORATORY Blood specimen (specimen) Venous Draw / Unknown 11/20/2016 1:50 PM EDT 11/20/2016 4:05 PM EDT Narrative Resulting Agency Comment Spec In Lab Razia Mims MD CHEMISTRY [place] [address] * Differential, Automated (11/20/2016 1:49 PM EDT) Neutrophils % 49.9 % [facility] Neutr Abs (ANC) 3.35 1.70 - 6.10 x10(3)/[facility] LABORATORY Lymphocytes % 43.5 % [facility] Lymphocytes Abs 2.9 0.9 - 3.2 x10(3)/[facility] LABORATORY Monocytes % 5.6 % [facility] Monocyte Abs 0.4 0.3 - 0.9 x10(3)/[facility] LABORATORY Eosinophils % 0.6 % [facility] Eosinophils Abs 0.0 0.0 - 0.4 x10(3)/[facility] LABORATORY Basophils % 0.3 % [facility] Basophils Abs 0.0 0.0 - 0.1 x10(3)/[facility] LABORATORY Immature Gran % 0.10 % [facility] Comment: Immature granulocytes(IG's)percentage and absolute count will include metamyelocytes, myelocytes, and promyelocytes. Blood smears from CBCs yielding IG's will be scanned manually for concordance. If this scan disagrees with the automated IG or if promyelocytes are noted, a manual differential will be performed. Kimberly Gran Abs 0.01 0.00 - 0.04 x10(3)/[facility] LABORATORY Blood specimen (specimen) 11/20/2016 1:49 PM EDT 11/20/2016 2:01 PM EDT Narrative Resulting Agency Comment Spec In Lab Razia Mims MD [place] [address] * (ABNORMAL) Hemogram (11/20/2016 1:49 PM EDT) WBC 6.7 4.0 - 9.5 x10(3)/[facility] LABORATORY RBC 3.99(L) 4.00 - 5.21 x10(6)/[facility] LABORATORY Hemoglobin 12.8 11.7 - 15.5 gm/dL [facility] Hematocrit 37.4 35.7 - 45.8 % [facility] MCV 93.7 82.6 - 94.4 fL [facility] MCH 32.1(H) 27.1 - 32.0 pg [facility] MCHC 34.2 31.7 - 35.0 gm/dL [facility] Platelets 262 145 - 357 x10(3)/[facility] LABORATORY RDWSD 38.8 37.0 - 46.0 [facility] RDWCV 11.4(L) 11.5 - 14.1 % [facility] MPV 10.3 7.6 - 12.9 [facility] LABORATORY nRBC % Auto 0.0 % [facility] nRBC Abs Auto 0.000 0.000 - 0.000 x10(3)/[facility] LABORATORY Blood specimen (specimen) 11/20/2016 1:49 PM EDT 11/20/2016 2:01 PM EDT Narrative Resulting Agency Comment Spec In Lab Razia Mims MD HEMATOLOGY ORDERAB LES Performing Organization Address City/[facility]/ZIP Co de Phone Number [facility] [place] [address] * Lyme IgG & IgM Antibody (11/20/2016 1:49 PM EDT) Lyme Screening Antibody Neg Neg [facility] Blood specimen (specimen) 11/20/2016 1:49 PM EDT 11/21/2016 8:31 AM EDT Narrative Resulting Agency Comment Spec In Lab Razia Mims MD IMMUNOLOGY ORDERAB LES Performing Organization Address City/[facility]/ZIP Co de Phone Number [facility] [place] [address] * Ceruloplasmin (11/20/2016 1:49 PM EDT) Pathologist [facility] Ceruloplasmin 37.5 16.0 - 45.0 mg/dL [facility] Blood specimen (specimen) 11/20/2016 1:49 PM EDT 11/20/2016 2:01 PM EDT Narrative Resulting Agency Comment Spec In Lab Razia Mims MD CHEMISTRY ORDERABL ES Performing Organization Address [facility] Co de Phone Number [facility] [place] [address] * Miscellaneous Lab request (11/20/2016 1:49 PM EDT) Pathologist [facility] Misc Lab Result Request received in lab. [facility] Blood specimen (specimen) 11/20/2016 1:49 PM EDT 11/20/2016 2:01 PM EDT Narrative Resulting Agency Comment Spec In Lab Razia Mims MD HEMATOLOGY ORDERAB LES Performing Organization Address [facility] Co de Phone Number [facility] [place] [address] * Streptococcal Antibody Panel (11/20/2016 1:49 PM EDT) Pathologist [facility] ASO Titer 44 0 - 530 IU/mL [facility] Comment: Test Performed by: [facility] [address] [place] [address] DNase B Ab <74 0 - 300 unit/mL [facility] Comment: Test Performed by: [facility] [address] [place] [address] Blood specimen (specimen) 11/20/2016 1:49 PM EDT 11/20/2016 4:01 PM EDT Narrative Resulting Agency Comment Spec In Lab Razia Mims MD IMMUNOLOGY ORDERAB LES Performing Organization Address City/[facility]/ZIP Co de Phone Number [facility] [place] [address] * C4 Complement (11/20/2016 1:49 PM EDT) C4 Complement 27 10 - 40 mg/dL [facility] Blood specimen (specimen) 11/20/2016 1:49 PM EDT 11/20/2016 2:01 PM EDT Narrative Resulting Agency Comment Spec In Lab Razia Mims MD CHEMISTRY ORDERABL ES Performing Organization Address City/[facility]/ZIP Co de Phone Number [facility] [place] [address] * C3 Complement (11/20/2016 1:49 PM EDT) C3 Complement 119 90 - 180 mg/dL [facility] Blood specimen (specimen) 11/20/2016 1:49 PM EDT 11/20/2016 2:01 PM EDT Narrative Resulting Agency Comment Spec In Lab Razia Mims MD CHEMISTRY ORDERABL ES Performing Organization Address City/[facility]/ZIP Co de Phone Number [facility] [place] [address] * T4, free (11/20/2016 1:49 PM EDT) Free T4 1.04 0.93 - 1.70 ng/dL [facility] Blood specimen (specimen) 11/20/2016 1:49 PM EDT 11/20/2016 2:01 PM EDT Narrative Resulting Agency Comment Spec In Lab Razia Mims MD CHEMISTRY ORDERABL ES Performing Organization Address City/[facility]/ZIP Co de Phone Number [facility] [place] [address] * ARMEN (11/20/2016 1:49 PM EDT) ARMEN Neg Neg [facility] Blood specimen (specimen) 11/20/2016 1:49 PM EDT 11/21/2016 7:30 AM EDT Narrative Resulting Agency Comment Spec In Lab Razia Mims MD IMMUNOLOGY ORDERAB LES [facility] [place] [address] * Cardiolipin Antibody Screen (11/20/2016 1:49 PM EDT) Cardiolipin IgG <23 <=22 GPL unit(s) [facility] Comment: Ranges ? GPL ------- ? ------ Normal ?<23 Low Positive ? 23-35 Moderate Positive ?36-50 High Positive ? >50 Cardiolipin IgM <11 <=10 MPL unit(s) [facility] Comment: Ranges ?MPL ----- ?----- Normal ?<11 Low Positive ? 11-20 Moderate Positive ?21-30 High Positive ? >30 Blood specimen (specimen) 11/20/2016 1:49 PM EDT 11/21/2016 7:30 AM EDT Narrative Resulting Agency Comment Spec In Lab Razia Mims MD IMMUNOLOGY ORDERAB LES [facility] [place] [address] * (ABNORMAL) Comprehensive metabolic panel (non-fasting) (11/20/2016 1:49 PM EDT) Glucose Lvl 85 65 - 199 mg/dL [facility] Comment:Diabetes: >=200 mg/d L plus symptoms BUN 18 8 - 18 mg/dL [facility] Creatinine 1.12 0.70 - 1.20 mg/dL [facility] Comment: Please note that the pediatric reference intervals supplied above were not validated at [facility]. Results from pediatric patients should be interpreted in conjunction to the patient's age, height and muscle mass. Sodium 141 135 - 145 mmol/L [facility] Potassium 3.8 3.5 - 5.0 mmol/L [facility] Comment: Please note: ??Patients with WBC >100,000 may have falsely elevated Potassium levels. ??For accurate Potassium quantification in these patients send serum separator tube (gold top) for subsequent determinations. ??Contact the Clinical Chemistry Laboratory if there are any questions. Chloride 99 98 - 107 mmol/L [facility] CO2 31 22 - 31 mmol/L [facility] Anion Gap 11 5 - 15 mmol/L [facility] Calcium 9.6 8.5 - 10.5 mg/dL [facility] Total Protein 7.5 6.1 - 8.0 gm/dL [facility] Albumin 4.2 3.2 - 5.2 gm/dL [facility] AST 17 0 - 30 unit/L [facility] ALT 11 0 - 30 unit/L [facility] Alk Phos 53 40 - 104 unit/L [facility] Total Bilirubin 0.2 0.2 - 1.3 mg/dL [facility] Estimated GFR 51(L) >=60 [facility] Comment: This estimated GFR [...] the following links into your internet browser. [email or web address] Blood specimen (specimen) 11/20/2016 1:49 PM EDT 11/20/2016 2:01 PM EDT Narrative Resulting Agency Comment Spec In Lab Razia Mims MD CHEMISTRY ORDERABL ES [facility] [place] [address] documented in this encounter Visit Diagnoses Diagnosis Chorea Other choreas Stage 3a chronic kidney disease documented in this encounter Care Teams Senior Project Coordinator Relationship Specialty Start Date End Date Yumiko Tavarez MD [address] [place] [address] PCP - General Family Medicine 07/07/16 documented as of this encounter
--- OUTSIDE RECORDS SUMMARY | 2023-09-21 17:04 | XMS_ITS | Encounter Summary ---
Author Organization [facility] [place] [address] Care Team Providers Care Pen Ruler Operator Name Role Phone Yumiko Tavarez MD Primary Care Provider [phone] Encounter Details Date Type Department Care Team (Late st Contact Info) Description 10/08/2018 Telephone Neurology at [facility] [place] [phone] Razia iMms MD [facility] [place] [address] Social History Tobacco Use Types Packs/Day Years [...] as noted. She verbalized understanding of this. * Telephone Encounter - Carline Don RN - 10/10/2018 3:43 PM EDT Message left requesting return call. * Telephone Encounter - Carline Don RN - 10/10/2018 2:00 PM EDT Razia Mims MD to Me ?? 1:16 PM I think we should try to increase the mirapex a little further. Up to 0.75mg TID for a week then upto 1mg TID. I did show the video [...] thought the cause of her symptoms was. * Telephone Encounter - Carline Don RN [...] 10:00 AM EDT Laboratory Appointment Lab [address] [place] [address] 09/24/2023 11:30 AM EDT Office Visit [place] [phone] Nenita Grimes, YANN [facility] [place] [address] documented as of this encounter Visit Diagnoses Not on filedocumented in this encounter Care Teams Pen Ruler Operator Relationship Specialty Start Date End Date Yumiko Tavarez MD [address] [place] [address] PCP - General Family Medicine 07/07/16 documented as of this encounter
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
--- OUTSIDE RECORDS SUMMARY | 2023-09-21 17:04 | XMS_ITS | Encounter Summary ---
Author Organization [facility] [place] [address] Care Team Providers Care Liner Man Name Role Phone Yumiko Tavarez MD Primary Care Provider [phone] Reason for Visit * Diagnostic Test (Routine) - Closed Specialty Diagnoses / Procedures Referred By Contpayam t Referred To Contact Radiology Diagnoses Tremors of nervous system Procedures NM IRMA Scan Razia Mims MD [facility] [place] [address] [place] [address] Referral ID Status Reason Start Date Expiration Date V isits Requested Visits Authorized [id number] Closed Specialty Service Requested 12/18/2016 12/18/2017 3 3 Encounter Details Date Type Department Care Team (Latest Contact Info) Description 01/10/2017 2:32 PM EST - 01/10/2017 11:59 PM [facility] Hospital Encounter [place] [phone] Razia Mims MD [facility] [place] [address] Discharge Disposition: Home Social History Tobacco Use [...] 10:00 AM EDT Laboratory Appointment Lab [address] [place] [address] 09/24/2023 11:30 AM EDT Office Visit Nephrology [place] [address] Nenita Grimes, YANN [facility] [place] [address] documented as of this encounter Procedures Procedure [...] on filedocumented in this encounter Care Teams Liner Man Relationship Specialty Start Date End Date Yumiko Tavarez MD [address] [place] [address] PCP - General Family Medicine 07/07/16 documented as of this encounter
--- OUTSIDE RECORDS SUMMARY | 2023-09-21 17:04 | XMS_ITS | Encounter Summary ---
Author Organization [facility] [place] [address] Care Team Providers Care Optical Goods Drill Operator Name Role Phone Yumiko Tavarez MD Primary Care Provider [phone] Reason for Visit * Diagnostic Test (Routine) - Closed Specialty Diagnoses / Procedures Referred By Contpayam t Referred To Contact Radiology Diagnoses Tremors of nervous system Procedures NM IRMA Scan Razia Mims MD [facility] [place] [address] [place] [address] Referral ID Status Reason Start Date Expiration Date V isits Requested Visits Authorized [id number] Closed Specialty Service Requested 12/18/2016 12/18/2017 3 3 Encounter Details Date Type Department Care Team (Latest Contact Info) Description 01/10/2017 9:57 AM EST - 01/10/2017 2:31 PM [facility] Hospital Encounter [place] [phone] Razia Mims MD [facility] [place] [address] Discharge Disposition: Home Social History Tobacco Use [...] 10:00 AM EDT Laboratory Appointment Lab [address] [place] [address] 09/24/2023 11:30 AM EDT Office Visit [place] [address] Nenita Grimes, YANN [facility] [place] [address] documented as of this encounter Procedures Procedure Name Priority Date/Time Associated Diagnosis Comments NM BRAIN IMAGING FOR PARKINSONS DISEASE Routine 01/10/2017 3:39 PM EST Tremors of nervous system documented in this encounter Visit Diagnoses Not on filedocumented in this encounter Administered Medications Inactive Administered Medications - up to 3 most recent administrations Medication Order MAR Action Action Date Dose Rate Site ioflupane (I-123) (DATSCAN) injection 5.3 mCi 5.3 mCi, Intravenous, ONCE PRN, 1 dose, Starting on Sun01/10/17 at 1100, Until Sun01/10/17 at 1100, Per Protocol, Routine Given 01/10/2017 11:00 AM EST 5.3 mCi documented in this encounter Care Teams Optical Goods Drill Operator Relationship Specialty Start Date End Date Yumiko Tavarez MD [address] [place] [address] PCP - General Family Medicine 07/07/16 documented as of this encounter
--- OUTSIDE RECORDS SUMMARY | 2023-09-21 17:04 | XMS_ITS | Encounter Summary ---
Author Organization [facility] [place] [address] Care Team Providers Care Senior Mechanical Engineer Name Role Phone Yumiko Tavarez MD Primary Care Provider [phone] Encounter Details Date Type Department Care Team (Late st Contact Info) Description 10/10/2018 [place] [address] Razia Mims MD [facility] [place] [address] Social History Tobacco Use Types Packs/Day Years [...] 10:00 AM EDT Laboratory Appointment Lab [address] [place] [address] 09/24/2023 11:30 AM EDT Office Visit [place] [address] Nenita Grimes APRN [facility] NE[place]ORGIO [place], [place] [phone] documented as of this encounter Visit Diagnoses Not on filedocumented in this encounter Care Teams Senior Mechanical Engineer Relationship Specialty Start Date End Date Yumiko Tavarez MD [address] [place] [address] PCP - General Family Medicine 07/07/16 documented as of this encounter
--- OUTSIDE RECORDS SUMMARY | 2023-09-21 17:04 | XMS_ITS | Encounter Summary ---
Author Organization [facility] [place] [address] Care Team Providers Care Aluminum Container Tester Name Role Phone Yumiko Tavarez MD Primary Care Provider [phone] Encounter Details Date Type Department Care Team (Late st Contact Info) Description 05/10/2018 Telephone Neurology at [facility] [place] [phone] Razia Mims MD [facility] [place] [address] Social History Tobacco Use Types Packs/Day Years [...] include fatigue. Impulse control is also a rareside effect. She should titrate up the dose [...] She understands and agrees with this plan. * Telephone Encounter - Carline Don RN - 05/13/2018 10:04 AM EDT Message left requesting return call. * Telephone Encounter - Carline Don RN - 05/10/2018 2:02 PM EST Razia Mims MD to Me ?? 05/10/18 1:06 PM If she is not having any benefit she can stop the medication. RJT Called patient and relayed recommendation as noted. Patient verbalized understanding, but she askedif there was something else that she could take to help with her shaking. She finds it very troublesome and hopes that maybe there is another medication that could try to get some relief. * Telephone Encounter - Carline Don RN - 05/10/2018 1:55 PM EST Message left requesting return call. * Telephone [...] to this plan. * Telephone Encounter - Carline Don RN - 05/10/2018 11:02 AM EST Message left requesting return call. * Telephone Encounter - Diana Salazar - 05/10/2018 9:32 AM EST Clinical Blocker [employer] Message Caller: Miguelina If not Pt / Relation to pt: Call back Number: [phone] Best time to reach caller: Anytime Reason [...] 10:00 AM EDT Laboratory Appointment Lab [address] [place] [address] 09/24/2023 11:30 AM EDT Office Visit Neph[place] [address] Nenita Grimes APRN [facility] [place] [address] documented as of this encounter Visit Diagnoses Not on filedocumented in this encounter Care Teams Aluminum Container Tester Relationship Specialty Start Date End Date Yumiko Tavarez MD [address] [place] [address] PCP - General Family Medicine 07/07/16 documented as of this encounter
--- OUTSIDE RECORDS SUMMARY | 2023-09-21 17:04 | XMS_ITS | Encounter Summary ---
Author Organization [facility] [place] [address] Care Team Providers Care Staff Rn Name Role Phone Yumiko Tavarez MD Primary Care Provider [phone] Encounter Details Date Type Department Care Team (Late st Contact Info) Description 07/10/2018 2:00 PM EDT Office Visit Neurology at [facility] [place] [address] [facility] [address] Primary Parkinsonism; Chorea Social History Tobacco Use [...] * Patient Instructions* Razia Mims MD - 07/10/2018 2:00 PM EDT Start on the artane (trihexyphenidyl) Take 1/2 tab (1mg) daily for one week Then take 1/2 tab (1mg) twice a day for a week Then take 1/2 tab (1mg) three times a day Then check in and let me know how it is going documented in this encounter Progress Notes * Razia Mims MD - 07/10/2018 2:00 PM EDT [facility] Movement Disorders Follow Up Patient Evaluation Date of service 07/10/2018 Referring provider Yumiko Tavarez MD [address] [place] [address] Cc: tremor History of present illness Miguelina [...] not work forher. She fainted with requip. Her symptoms are [...] , Rfl: ??? naloxone (NARCAN) 4 mg/actuation [place], Non-Aerosol, by Nasal route as needed., Disp: [...] by mouth 3 times daily., Disp: 45 tablet, Rfl: 11 ??? ketoconazole (NIZORAL) 2 % Cream, [...] daily as needed for Heartburn.,Disp: , Rfl: Social History: Lives in [facility], she is retired from [email or web address] Remote history of cocaine use Review of Systems - All others negative except forgetfulness, back pain, difficulty walking, near falls Physical Exam Most Recent Vitals: 07/10/18 1344 BP: 118/72 Pulse: 91 General: the patient appears stated age, not in any acute distress, well groomed, Body mass index is 27.59 kg/m??. HEENT: normal cephalic atraumatic, eye conjunctiva [...] other genetic testing Razia Mims MD [facility] Neurology-Movement Disorders documented in this encounter Plan of Treatment Upcoming Encounters Date Type Department Care Team (Latest Contact Info) Description 09/24/2023 10:00 AM EDT Laboratory Appointment Lab [address] [place] [address] 09/24/2023 11:30 AM EDT Office Visit [place] [address] Nenita Grimes, YANN [facility] [place] [address] documented as of this encounter Visit Diagnoses Diagnosis Primary parkinsonism Paralysis agitans Chorea Other choreas Stage 3a chronic kidney disease documented in this encounter Care Teams Staff Rn Relationship Specialty Start Date End Date Yumiko Tavarez MD [address] [place] [address] PCP - General Family Medicine 07/07/16 documented as of this encounter
[2023-09-21 21:11] LABS: Abs Immature Grans 0.01 10^3/uL (0.0-0.06); Absolute Basophil Count 0.03 10^3/uL (0.0-0.2); Absolute Eosinophil Count 0.06 10^3/uL (0.0-0.7); Absolute Lymphocyte Count 2.08 10^3/uL (1.2-3.4); Absolute Monocyte Count 0.27 10^3/uL (0.1-0.8); Absolute Neutrophil Count 1.77 10^3/uL (1.2-6.7); Basophils % 0.7 %; Eosinophils % 1.4 %; HGB 13.1 g/dL (11.2-15.7); Immature Grans % 0.2 %; Lymphocytes % 49.3 %; MCH 32.8 pg (27.0-33.0); MCHC 33.6 % (32.0-36.0); MCV 98 fL (80-95); MPV 11.2 fL (8.0-11.0); Monocytes % 6.4 %; Platelet Count 212 10^3/uL (130-400); RDW 11.5 % (11.7-14.6); RDW-SD 41.8 fL; WBC 4.22 10^3/uL (4.4-10.8)
== END 2023-09-21 16:48 | disposition home or self-care (01) ==
LOC: NCHCN 16:47
PROVIDERS: PCP Family Medicine; Visit Provider Family Medicine
DX: J02.9 Acute pharyngitis, unspecified (principal)
CPT/HCPCS: 85025

== ENCOUNTER 2023-10-01 21:24 | Outpatient (REF) | payer OTHER, SELFPAY ==
--- OUTSIDE RECORDS SUMMARY | 2023-10-01 21:26 | XMS_ITS | Encounter Summary ---
Author Organization [facility] Address [address] [place] [address] Care Team Providers Care General Foundry Worker Name Role Phone Yumiko Tavarez MD Primary Care Provider [phone] Reason for Visit * Reason Onset Date Comments Appointment Related 12/13/2022 Encounter Details Date Type Department Care Team (Late st Contact Info) Description 12/13/2022 Telephone [facility] Neurology - S [address] [phone] Alta Walter MD [address] [place] [address] Level 2 [place] [phone] Appointment Related Social History Tobacco Use Types [...] Sunday05/23/2023 at2:00 PM. * Telephone Encounter - Naye Lara - 12/18/2022 0906 EDT Miguelina called [...] 13:00 EST Office Visit [facility] Neurology - S [address] [address] Alta Walter MD [address] [place] [address] 2 [place] [address] documented as of this encounter Visit Diagnoses Not on filedocumented in this encounter Care Teams General Foundry Worker Relationship Specialty Start Date End Date Yumiko Tavarez MD [address] [place] [phone] PCP - General 12/29/19 documented as of this encounter
--- OUTSIDE RECORDS SUMMARY | 2023-10-01 21:26 | XMS_ITS | Encounter Summary ---
Author Organization [facility] Address [address] [place] [address] Care Team Providers Care Gis Web Developer Name Role Phone Yumiko Tavarez MD Primary Care Provider [phone] Encounter Details Date Type Department Care Team (Latest Contact Info) Description 01/30/2023 Lab Requisition [facility] Pathology & Laboratory Medicine - [facility] [address] [place] [address] Yumiko Tavarez MD [address] [place] [phone] Encounter for gynecological examination (general) (routine) without [...] Info) Description 02/13/2024 13:00 EST Office Visit [facility] Neurology - S [place] [address] [place] [address] Alta Walter MD [address] [place] [address], Level 2 [place] [phone] documented as of this encounter Procedures Procedure [...] 16, PCR Negative Negative 02/13/2023 15:28 EST [facility] HPV18/45 RNA (HPV18/45) Positive(A) Negative 02/13/2023 15:28 EST [facility] Pap Test CERVIX UTERI STRUCTURE / Unknown 01/26/2023 14:00 EST 02/07/2023 16:12 EST Yumiko Tavarez MD MICROBIOLOGY - GENER AL ORDERABLES Performing Organization Address City/State/[facility] Co de Phone Number [facility] [address] [place] [address] * (ABNORMAL) HUMAN PAPILLOMAVIRUS (HPV) DETECTION-HIGH RISK TYPES (01/26/2023 14:00 EST) HPV other High Risk types, PCR Positive( A) Negative 02/15/2023 14:38 EST [facility] Comment:E6 OR E7 mRNA from o ne or more types of HPV types 16,18,31,33,35,39,45,51,52,56,58,59,66, and 68 is detected by squeak rattle and leak repairer mediated amplification. High and intermediate risk HPV types are associated with most squamous intraepithelial lesions and cervical cancers. Pap Test CERVIX UTERI STRUCTURE / Unknown 01/26/2023 14:00 EST 02/07/2023 16:12 EST Yumiko Tavarez MD MICROBIOLOGY - GENER AL ORDERABLES [facility] [address] [place] [address] * PAP TEST (01/26/2023 14:00 EST) Specimens A. Cervix and/or Endocervix , ThinPrep Imaging System with Manual Evaluation 02/15/2023 14:38 [facility] Specimen Adequacy Satisfactory for Evaluation - transformation zone component present 02/15/2023 14:38 [facility] General Categorization Negative for intraepithelial lesion or malignancy 02/15/2023 14:38 [facility] Descriptive Diagnosis Reactive cellular changes associated with inflammation present (includes repair). 02/15/2023 14:38 [facility] Attestation By the signature below, the attending physician certifies that they have personally conducted a gross and/or microscopic examination of the described specimens and rendered or confirmed the above diagnosis. 02/15/2023 14:38 [facility] at 1438 Clinical History SEE BELOW 02/16/20 14:38 [facility] HPV The result for the Human Papillomavirus (HPV) Detection-High Risk Types is Positive . E6 OR E7 mRNA from one or more types of HPV types 16,18,31,33,35,39 ,45,51,52,56,58,5 9,66, and 68 is detected by squeak rattle and leak repairer mediated amplification. High and intermediate risk HPV types are associated with most squamous intraepithelial lesions and cervical cancers. Testing was performed on specimen [id number] and was resulted on 02/08/2023 1733 EST by ANTHONY, LAB INSTRUMENT RESULTS IN 02/15/2023 14:38 [facility] Genotyping 16 & 18/45 The results for the HPV Genotypes 16 and 18/45 are Negative for the HPV16 RNA and Positive for the HPV18/45 RNA (HPV18/45) . Testing was performed on specimen [id number] and was resulted on 02/13/2023 1528 EST by ANTHONY, LAB INSTRUMENT RESULTS IN 02/15/2023 14:38 EST [facility] Performing Lab [facility] 02/15/2023 14:38 EST [facility] Scanned Images 02/15/2023 14:38 EST [facility] Pap Test CERVIX UTERI STRUCTURE / Unknown 01/26/2023 14:00 EST 01/30/2023 16:15 EST Yumiko Tavarez MD PATHOLOGY ORDERABLES Performing Organization Address City/State/[facility] Co de Phone Number [facility] [address] [place] [address] documented in this encounter Visit Diagnoses Diagnosis Encounter for gynecological examination (general) (routine) without abnormal findings Encounter for screening for malignant neoplasm of cervix Screening for malignant neoplasm of the cervix Encounter for general adult medical examination without abnormal findings Unspecified general medical examination documented in this encounter Care Teams Gis Web Developer Relationship Specialty Start Date End Date Yumiko Tavarez MD [address] [place] [phone] PCP - General 12/29/19 documented as of this encounter
--- OUTSIDE RECORDS SUMMARY | 2023-10-01 21:26 | XMS_ITS | Encounter Summary ---
Author Organization [facility] Address [address] [place] [address] Care Team Providers Care Manager Pet Name Role Phone Yumiko Tavarez MD Primary Care Provider [phone] Reason for Visit * Reason Onset Date Comments Prior Auth, Medication 03/13/2023 Encounter Details Date Type Department Care Team ([facility] Contact Info) Description 03/13/2023 Telephone [facility] Neurology - S [address] [phone] Alta Walter MD [address] [place] [address], Level 2 [place] [address] Prior Auth, Medication Social History [...] 1 mg tab, sent to plan. Mooney: [id number] PA response: Drug is covered by current benefit plan. No further PA activity needed documented in this encounter Plan of Treatment Upcoming Encounters Date Type Department Care Team (Late st Contact Info) Description 02/13/2024 13:00 EST Office Visit [facility] Neurology - S [place] [address] [place] [address] Alta Walter MD 1 [facility], Level [address] [place] [phone] documented as of this encounter Visit Diagnoses Not on filedocumented in this encounter Care Teams Manager Pet Relationship Specialty Start Date End Date Yumiko Tavarez MD [address] [place] [address] PCP - General 12/29/19 documented as of this encounter
--- OUTSIDE RECORDS SUMMARY | 2023-10-01 21:26 | XMS_ITS | Encounter Summary ---
Author Organization [facility] Address [address] [place] [address] Care Team Providers Care Transliterator Name Role Phone Yumiko Tavarez MD Primary Care Provider [phone] Reason for Visit * Reason Onset Date Comments Appointment Related 08/02/2023 Encounter Details Date Type Department Care Team (Late st Contact Info) Description 08/02/2023 Telephone [facility] Neurology - S [address] [address] Alta Walter MD [address] [place] [address] [address] 2 [place] [phone] Appointment Related Social History Tobacco Use Types [...] [facility] Neurology - S [place] [address] [place] [address] Alta Walter MD 1 [facility], Level [address] [place] [phone] documented as of this encounter Visit Diagnoses Not on filedocumented in this encounter Care Teams Transliterator Relationship Specialty Start Date End Date Yumiko Tavarez MD [address] [place] [address] PCP - General 12/29/19 documented as of this encounter
--- OUTSIDE RECORDS SUMMARY | 2023-10-01 21:26 | XMS_ITS | Encounter Summary ---
Author Organization [facility] Address [address] [place] [address] Care Team Providers Care Anti Air Warfare Operations Officer Name Role Phone Yumiko Tavarez MD Primary Care Provider [phone] Reason for Visit * Reason Comments Follow-up Encounter Details Date Type Department Care Team (Late st Contact Info) Description 07/05/2023 13:00 EDT Telemedicine [facility] Neurology - S [address] [phone] Alta Walter MD [address] [place] [address] [address] [place] [phone] Tardive dyskinesia (Primary Dx); Functional neurological symptom [...] this encounter. Phone: N/A Fax: Primary Software Integration Developer: Yumiko Tavarez [address] [place] [phone] ASSESSMENT & PLAN / RECOMMENDATIONS 1. Tardive dyskinesia 2. Functional neurological symptom disorder with abnormal movement 3. Postural tremor Miguelina Morales is a 57 y.o. 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
--- OUTSIDE RECORDS SUMMARY | 2023-10-01 21:26 | XMS_ITS | Clinical Summary ---
Author Organization [facility] Address [address] [place] [address] Care Team Providers Care Solar Panel Installation Supervisor Name Role Phone Yumiko Tavarez MD Primary Care Provider [phone] Allergies Active Allergy Reactions Criticality Noted Date [...] Type Department Care Team Description 08/02/2023 Telephone [facility] Neurology S [address] [phone] Alta Walter MD Appointment Related 07/06/[address] [phone] Alta Walter MD Appointment Related 07/05/2023 13:00 EDT Telemedicine [address] [phone] Alta Walter MD Tardive dyskinesia (Primary Dx); [...] 02/13/2024 13:00 EST Office Visit [facility] Neurology - S [place] [address] [place], [place] [phone] Alta Walter MD [address] [place] [address], Level [address] [place] [phone] Health Maintenance Due Date Last Done Comments Hepatitis C Screen 1965 Lung Cancer Screening 1965 Pneumococcal Immunization (1 of 2 - PCV) 1969 COVID-19 Vaccine ( - 2022-24 season) 2022 RSV Immunization ( o r 60+ Years) (1 - 1-dose 60+ series) 2023 Care Teams Solar Panel Installation Supervisor Relationship Specialty Start Date End Date Yumiko Tavarez MD [address] [place] [phone] PCP - General 12/29/19
--- OUTSIDE RECORDS SUMMARY | 2023-10-01 21:26 | XMS_ITS | Encounter Summary ---
Author Organization [facility] Address [address] [place] [address] Care Team Providers Care Social Service Director Name Role Phone Yumiko Tavarez MD Primary Care Provider [phone] Reason for Referral * PT/OT/ST (Routine/Next Available) - Closed Specialty Diagnoses / Procedures Referred By Contpayam t Referred To Contact Diagnoses Functional neurological symptom disorder with abnormal movement Neurologic gait dysfunction Alta Walter MD [address] [place] [phone] Referral ID Status Reason Start Date Expiration Date V isits Requested Visits Authorized [id number] Closed Specialty Services Required 01/02/2023 1 1 Question Answer Reason for Request: Patient with involuntary movements / functional neurological disorder, please help with gait / motor reprogramming Practice Site (External Referral Only): [facility] - Rehabilitation Department Comments [facility] Reason for Visit * Reason Comments Follow-up Encounter Details Date Type Department Care Team (Late st Contact Info) Description 01/01/2023 13:15 EDT Office Visit [facility] Neurology - S [address] [phone] Alta Walter MD [address] [place] [phone] Tardive dyskinesia (Primary Dx); Functional neurological [...] for this encounter. Phone: N/A Fax: Primary Education Manager: Yumiko Tavarez [address] [place] [phone] ASSESSMENT & PLAN / RECOMMENDATIONS 1. Tardive dyskinesia 2. Functional neurological symptom disorder with abnormal movement Miguelina Morales is a 57 y.o. woman who returns to the [facility] Movement Disorders clinic for evaluation [...] y.o. 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 added in this encounter Care Teams Social Service Director Relationship Specialty Start Date End Date Yumiko Tavarez MD [address] [place] [address] PCP - General 12/29/19 documented as of this encounter
--- OUTSIDE RECORDS SUMMARY | 2023-10-01 21:26 | XMS_ITS | Encounter Summary ---
Author Organization [facility] Address [address] [place] [address] Care Team Providers Care Watch Parts Inspector Name Role Phone Yumiko Tavarez MD Primary Care Provider [phone] Reason for Visit * Reason Onset Date Comments Appointment Related 07/06/2023 Encounter Details Date Type Department Care Team (Late st Contact Info) Description 07/06/[address] [facility] Neurology - S [address] [address] Alta Walter MD [address] [place] [address] Level [address] [place] [phone] Appointment Related Social History Tobacco Use Types [...] Description 02/13/2024 13:[address] [facility] Neurology - S [place] [address] [place] [address] Alta Walter MD 1 [facility], Level [address] [place] [address] documented as of this encounter Visit Diagnoses Not on filedocumented in this encounter Care Teams Watch Parts Inspector Relationship Specialty Start Date End Date Yumiko Tavarez MD [address] [place] [address] PCP - General 12/29/19 documented as of this encounter
--- OUTSIDE RECORDS SUMMARY | 2023-10-01 21:26 | XMS_ITS | Referral Summary ---
Author Organization [facility] Address [address] [place] [address] Care Team Providers Care Sound Printer Name Role Phone Yumiko Tavarez MD Primary Care Provider [phone] Encounters Date Type Department Care Team Description 08/02/[address] [address] Alta Walter MD Appointment Related 07/06/[address] [phone] Alta Walter MD Appointment Related 07/05/2023 13:00 EDT Telemedicine [address] [phone] Alta Walter MD Tardive dyskinesia (Primary Dx); [...] – [facility] Neurology - S [place] [address] [place], [place] [address] Alta Walter MD 1 [facility], Level [address] [place] [phone] Care Teams Sound Printer Relationship Specialty Start Date End Date Daysi, Yumiko C, MD [address] [place] [phone] PCP - General 12/29/19
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
--- OUTSIDE RECORDS SUMMARY | 2023-10-01 21:27 | XMS_ITS | Encounter Summary ---
Author Organization [facility] Address [address] [place] [address] Care Team Providers Care End Maker Name Role Phone Yumiko Tavarez MD Primary Care Provider [phone] Reason for Visit * Reason Onset Date Comments Medication Management 06/01/2020 pt needs a ssistance acquiring this medication Encounter Details Date Type Department Care Team (Late st Contact Info) Description 06/01/2020 Telephone [facility] Neurology - S [address] [phone] Alta Watler MD [address] [place] [address] Level 2 [place] [address] Medication Management (pt needs assistance [...] to. We first sent this script to [facility] in [place], they do not do specialty meds. Then we sent it to [facility] yesterday. Pt called [facility] and they said to pt that her insuranceco. will not pay for it. Pt uses [facility]. [facility] called pt's insurance company and the insurance said to go onto a certain website and request a prior authorization. Website: [email or web address] Insurance company wants to use [facility] once the prior auth is obtained. 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
--- OUTSIDE RECORDS SUMMARY | 2023-10-01 21:27 | XMS_ITS | Encounter Summary ---
Author Organization [facility] Address [address] [place] [address] Care Team Providers Care Weaving Teacher Name Role Phone Yumiko Tavarez MD Primary Care Provider [phone] Encounter Details Date Type Department Care Team (Latest Contact Info) Description 03/02/2021 Lab Requisition [facility] Pathology & Laboratory Medicine - [facility] [address] [place] [address] Yumiko Tavarez MD [address] [place] [phone] Encounter for general adult medical examination without [...] Info) Description 02/13/2024 13:00 EST Office Visit [facility] Neurology - S [place] [address] [place] [phone] Alta Walter MD [address] [place] [address], Level 2 [place] [phone] documented as of this encounter Procedures Procedure [...] PCR Positive( A) Negative 03/10/2021 15:14 EST [facility] Comment:E6 OR E7 mRNA from o ne or more types of HPV types 16,18,31,33,35,39,45,51,52,56,58,59,66, and 68 is detected by finishing lab technician mediated amplification. High and intermediate risk HPV types are associated with most squamous intraepithelial lesions and cervical cancers. Papanicolaou smear specimen (specimen) CERVIX UTERI STRUCTURE / Unknown 02/28/2021 16:30 EST 03/08/2021 15:40 EST Yumiko Tavarez MD MICROBIOLOGY - GENER AL ORDERABLES [facility] [address] [place] [address] * PAP TEST (02/28/2021 16:30 EST) Specimens A. Cervix and/or Endocervix , ThinPrep Imaging System with Manual Evaluation 03/10/2021 15:14 [facility] Specimen Adequacy Satisfactory for Evaluation - transformation zone component present 03/10/2021 15:14 EST [facility] General Categorization Negative for intraepithelial lesion or malignancy 03/10/2021 15:14 [facility] Attestation . 03/10/2021 15:14 [facility] at 1514 Clinical History See below 03/10/19 15:14 [facility] HPV The result for the Human Papillomavirus (HPV) Detection-High Risk Types is Positive . E6 OR E7 mRNA from one or more types of HPV types 16,18,31,33,35,39 ,45,51,52,56,58,5 9,66, and 68 is detected by finishing lab technician mediated amplification. High and intermediate risk HPV types are associated with most squamous intraepithelial lesions and cervical cancers. Testing was performed on specimen [id number] and was resulted on 03/10/2021 0708 EST by ANTHONY, LAB INSTRUMENT RESULTS IN 03/10/2021 15:14 [facility] Performing Lab [facility] 03/10/2021 15:14 [facility] Scanned Images 03/10/2021 15:14 [facility] Papanicolaou smear specimen (specimen) CERVIX UTERI STRUCTURE / Unknown 02/28/2021 16:30 EST 03/02/2021 8:58 EST Yumiko Tavarez MD PATHOLOGY ORDERABLES [facility] [address] [place] [address] documented in this encounter Visit Diagnoses Diagnosis Encounter for general adult medical examination without abnormal findings Unspecified general medical examination Encounter for screening for malignant neoplasm of cervix Screening for malignant neoplasm of the cervix Encounter for gynecological examination (general) (routine) without abnormal findings documented in this encounter Care Teams Weaving Teacher Relationship Specialty Start Date End Date Yumiko Tavarez MD [address] [place] [address] PCP - General 12/29/19 documented as of this encounter
--- OUTSIDE RECORDS SUMMARY | 2023-10-01 21:27 | XMS_ITS | Encounter Summary ---
Author Organization [facility] Address [address] [place] [address] Care Team Providers Care Business Travel Consultant Name Role Phone Yumiko Tavarez MD Primary Care Provider [phone] Encounter Details Date Type Department Care Team (Late st Contact Info) Description 06/23/2021 Telephone [facility] Neurology - S [address] [address] Alta Walter MD [address] [place] [address] Level 2 [place] [address] Social History Tobacco Use Types [...] Info) Description 02/13/2024 13:00 EST Office Visit [facility] Neurology - S [address] [address] Alta Walter MD [address] [place] [address], Level [address] [place] [address] documented as of this encounter Visit Diagnoses Not on filedocumented in this encounter Care Teams Business Travel Consultant Relationship Specialty Start Date End Date Yumiko Tavarez MD [address] [place] [address] PCP - General 12/29/19 documented as of this encounter
--- OUTSIDE RECORDS SUMMARY | 2023-10-01 21:27 | XMS_ITS | Encounter Summary ---
Author Organization [facility] Address [address] [place] [address] Care Team Providers Care Flower Stripper Name Role Phone Yumiko Tavarez MD Primary Care Provider [phone] Reason for Visit * Reason Comments Follow-up Telemedicine Video Visit Encounter Details Date Type Department Care Team ([facility] st Contact Info) Description 06/15/2022 16:00 EDT Telemedicine [facility] Neurology - S [address] [address] Alta Walter MD [address] [place] [address] Level 2 [place] [address] Tardive dyskinesia (Primary Dx); Functional [...] visit Clinician Requesting Consultation: Yumiko Tavarez MD [address] [place] [phone] Fax: Primary Humane Officer: Yumiko Tavarez [address] [place] [phone] ASSESSMENT & PLAN / RECOMMENDATIONS 1. Tardive dyskinesia 2. Functional neurological symptom disorder with abnormal movement Miguelina Morales is a 57 y.o. woman who returns to the [facility] Movement Disorders clinic for evaluation and [...] y.o. woman who was referred to the [facility] Movement Disorders clinic for evaluation and [...] difficulty - has dysphagia, referral sent to [facility] Urinary dysfunction - okay in the [...] naloxone (NARCAN) 4 mg/actuation nasal spray 1 [place] by nasal route as needed. ??? 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, surgical, [...] was spent on the following activities: Patient/child day care provider education Review of the pertinent information in the electronic health record Care plan formulation Supportive counseling Scanned health information available from the referring and/or primary provider(s) Alta Thakkar MD Attending Physician, Movement Disorders Department of Neurology documented in this encounter Plan of Treatment Upcoming Encounters Date Type Department Care Team (Late st Contact Info) Description 02/13/2024 13:00 EST Office Visit [facility] Neurology - S [address] 818[address] Alta Walter MD 1 [facility], Level 2 [place] [phone] documented as of this encounter Visit Diagnoses Diagnosis Tardive dyskinesia- Primary Subacute dyskinesia due to drugs 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
--- OUTSIDE RECORDS SUMMARY | 2023-10-01 21:27 | XMS_ITS | Encounter Summary ---
Author Organization [facility] Address [address] [place] [address] Care Team Providers Care Carport Erector Name Role Phone Yumiko Tavarez MD Primary Care Provider [phone] Reason for Visit * Reason Onset Date Comments Appointment Related 06/09/2020 Encounter Details Date Type Department Care Team (Late st Contact Info) Description 06/09/2020 Telephone [facility] Neurology - S [address] [phone] Cat Dorantes MD [address] [place] [address] Level 2 [place] [phone] Appointment Related Social History Tobacco Use Types [...] Dorantes to Alejandra 07/06/20 at 1030. [place]: [phone] Email:[email or web address] Meeting ID: [phone] Password: [email or web address] * Telephone Encounter - Meme Lemus - 06/15/2020 1551 EDT Outreached Miguelina, rescheduled the cancelled appt from 06/15/2020 at 8:[address] Dorantes. New NPV TVD EXT appt is on Sunday06/28/2020 at 9:[address] Dorantes [place]: [phone] Email:[email or web address] Meeting ID: [phone] Password: [id number] * Telephone Encounter - Monae Chavez - 06/15/2020 0810 EDT Patient calling to cancel the 8:45 appointment today with as she is ill. She will call back and reschedule when she feels better. * Telephone Encounter - Meme Lemus - 06/09/2020 1232 EDT Outreached Miguelina, scheduled an NPV TVD EXT appt with Dr. Dorantes on Sunday06/15/2020 at 8:45 AM. [place]: [phone] EMail: [email or web address] Meeting ID: [phone] Password: [id number] documented in this encounter Plan of Treatment Upcoming Encounters Date Type Department Care Team (Late st Contact Info) Description 02/13/2024 13:00 EST Office Visit [facility] Neurology - S [address] 1489[address] Alta Walter MD [address] [place] [address] Level 2 [place] [phone] documented as of this encounter Visit Diagnoses Not on filedocumented in this encounter Care Teams Carport Erector Relationship Specialty Start Date End Date Yumiko Tavarez MD [address] [place] [address] PCP - General 12/29/19 documented as of this encounter
--- OUTSIDE RECORDS SUMMARY | 2023-10-01 21:27 | XMS_ITS | Encounter Summary ---
Author Organization [facility] Address [address] [place] [address] Care Team Providers Care Fabric Pattern Grader Name Role Phone Yumiko Tavarez MD Primary Care Provider [phone] Reason for Visit * Reason Onset Date Comments Medication Management 09/10/2020 [place] In itiation/Dose Increase Encounter Details Date Type Department Care Team (Late st Contact Info) Description 09/10/2020 Refill [facility] Neurology - S [address] [place], [place] [address] Blanca Vaughn RPH [address] [facility] [address] [place] [address] Medication Management (Austedo Initiation/Dose Increase) [...] not managed bythe [facility]. Blanca Vaughn, Pharm.D. [facility] Ambulatory Pharmacist Clinician 09/10/2020 documented in this encounter Plan of Treatment Upcoming Encounters Date Type Department Care Team (Late st Contact Info) Description 02/13/2024 13:00 EST Office Visit [facility] Neurology - S [address] [place] [address] Alta Walter MD [address] [place] [address], Level [address] [place] [address] documented as of this encounter Visit Diagnoses Not on filedocumented in this encounter Discontinued Medications Medication Sig Discontinue Reason Start Date End Da te deutetrabenazine (AUSTEDO) 6 mg tablet Take 6 mg by mouth daily for 7 days, THEN 6 mg 2 times daily for 21 days. Dose adjustment 08/26/2020 09/10/2020 documented as of this encounter Care Teams Fabric Pattern Grader Relationship Specialty Start Date End Date Yumiko Tavarez MD [address] [place] [phone] PCP - General 12/29/19 documented as of this encounter
--- OUTSIDE RECORDS SUMMARY | 2023-10-01 21:27 | XMS_ITS | Encounter Summary ---
Author Organization [facility] Address [address] [place] [address] Care Team Providers Care Ferryboat Operator Helper Name Role Phone Yumiko Tavarez MD Primary Care Provider [phone] Reason for Visit * Reason Onset Date Comments Medications Refill 06/16/2022 Encounter Details Date Type Department Care Team (Late st Contact Info) Description 06/16/2022 Refill [facility] Neurology - S [address] 654791 Alta Walter MD [address] [place] [address], Level 2 [place] [phone] Medications Refill Social History Tobacco Use Types [...] mg tablet Pharmacy (reconcile pharmacy list): [facility] - [place], [place] - [address] [place] [phone] Is patient out of medication? Yes Picking up/mailing (location)/calling in/eprescribe? eprescribe 30 day supply/90 day supply? Meme Lemus 39:29 documented in this encounter Plan of Treatment Upcoming Encounters Date Type Department Care Team (Late st Contact Info) Description 02/13/2024 13:00 EST Office Visit [facility] Neurology - S [address] 4723[address] Alta Walter MD [address] [place] [address], Level [address] [place] [address] documented as of this encounter Visit Diagnoses Not on filedocumented in this encounter Discontinued Medications Medication Sig Discontinue Reason Start Date End Da te clonazePAM (KLONOPIN) 1 mg tablet Take 1.5 Tablets by mouth 2 times daily AND 1 Tablet daily. Daily Max: 4 mg. Reorder 12/14/2021 06/16/2022 documented as of this encounter Care Teams Ferryboat Operator Helper Relationship Specialty Start Date End Date Yumiko Tavarez MD [address] [place] [address] PCP - General 12/29/19 documented as of this encounter
--- OUTSIDE RECORDS SUMMARY | 2023-10-01 21:27 | XMS_ITS | Encounter Summary ---
Author Organization [facility] Address [address] [place] [address] Care Team Providers Care Food And Drug Inspector Name Role Phone Yumiko Tavarez MD Primary Care Provider [phone] Reason for Visit * Reason Comments Follow-up Telemedicine Video Visit Encounter Details Date Type Department Care Team ([facility] st Contact Info) Description 05/19/2021 16:00 EDT Telemedicine [facility] Neurology - S [address] [address]35[address] Alta Walter MD [address] [place] [address] Level 2 [place] [phone] Tardive dyskinesia (Primary Dx); Functional neurological symptom [...] visit Clinician Requesting Consultation: Yumiko Tavarez MD [address] [place] [phone] Fax: Primary Paint Dipper: Yumiko Tavarez [address] [place] [phone] ASSESSMENT & PLAN / RECOMMENDATIONS 1. Tardive dyskinesia 2. Functional neurological symptom disorder with abnormal movement Miguelina Morales is a 56 y.o. woman who returns to the [facility] Movement Disorders clinic for evaluation [...] y.o. woman who was referred to the [facility] Movement Disorders clinic for evaluation [...] has dysphagia, referral sent to [facility] Urinary dysfunction - okay in the [...] naloxone (NARCAN) 4 mg/actuation nasal spray 1 [place] by nasal route as needed. ??? 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 medical, surgical, [...] following activities: Personal review of available imaging Patient/patient care technician education Scanned health information available from [...] 13:00 EST Office Visit [facility] Neurology - S [address] [address]16[address] Alta Walter MD [address] [place] [address], Level [address] [place] [phone] documented as of this encounter Visit Diagnoses [...] documented as of this encounter Care Teams Food And Drug Inspector Relationship Specialty Start Date End Date Yumiko Tavarez MD [address] [place] [phone] PCP - General 12/29/19 documented as of this encounter
--- OUTSIDE RECORDS SUMMARY | 2023-10-01 21:27 | XMS_ITS | Encounter Summary ---
Author Organization [facility] Address [address] [place] [address] Care Team Providers Care Svp Marketing Name Role Phone Yumiko Tavarez MD Primary Care Provider [phone] Reason for Visit * Reason Onset Date Comments Results 05/21/2020 Encounter Details Date Type Department Care Team (Late st Contact Info) Description 05/21/2020 Telephone [facility] Neurology - S [address] [phone] Alta Walter MD [address] [place] [address] Level 2 [place] [phone] Results Social History Tobacco Use Types Packs/Day [...] Encounter - Sunni Ivey RN - 05/21/2020 3830 EDT Miguelina sent a detailed [employer] message to get the Tyrell scan results. [...] Info) Description 02/13/2024 13:00 EST Office Visit [facility] Neurology - S [place] [address] [place] [address] Alta Walter MD [address] [place] [address], Level 2 [place] [phone] documented as of this encounter Visit Diagnoses Not on filedocumented in this encounter Care Teams Svp Marketing Relationship Specialty Start Date End Date Yumiko Tavarez MD [address] [place] [address] PCP - General 12/29/19 documented as of this encounter
--- OUTSIDE RECORDS SUMMARY | 2023-10-01 21:27 | XMS_ITS | Encounter Summary ---
Author Organization [facility] Address [address] [place] [address] Care Team Providers Care Rn Neurosurgical Name Role Phone Yumiko Tavarez MD Primary Care Provider [phone] Reason for Visit * Reason Onset Date Comments Medication Management 10/06/2020 Encounter Details Date Type Department Care Team (Late st Contact Info) Description 10/06/2020 Telephone [facility] Neurology - S [address] [id number] Alta Walter MD [address] [place] [address] Level 2 [place] [phone] Medication Management Social History Tobacco Use Types [...] 12mg PO BID Rx was sent to [facility] today. Additional Rx can be sent [...] asking for call back. Cisco Vaughn, Pharm.D. [facility] Ambulatory Pharmacist Clinician 10/08/2020 * Telephone Encounter [...] Visit [facility] Neurology - S [place] [address] [place] [address] Alta Walter MD 1 [facility], Level 2 [place] [phone] documented as of this encounter Visit Diagnoses Not on filedocumented in this encounter Discontinued Medications Medication Sig Discontinue Reason Start Date End Da te deutetrabenazine 12 mg tablet Take 1 Tablet by mouth 2 times daily. Reorder 10/08/2020 10/13/2020 deutetrabenazine (AUSTEDO) 6 mg tablet Take 6 mg by mouth every morning. Reorder 10/08/2020 10/13/2020 documented as of this encounter Care Teams Rn Neurosurgical Relationship Specialty Start Date End Date Yumiko Tavarez MD [address] [place] [address] PCP - General 12/29/19 documented as of this encounter
--- OUTSIDE RECORDS SUMMARY | 2023-10-01 21:27 | XMS_ITS | Encounter Summary ---
Author Organization [facility] Address [address] [place] [address] Care Team Providers Care Stud Setter Name Role Phone Yumiko Tavarez MD Primary Care Provider [phone] Reason for Visit * Reason Onset Date Comments Appointment Related 01/28/2021 Encounter Details Date Type Department Care Team (Late st Contact Info) Description 01/28/2021 Telephone [facility] Neurology - S [address] [id number] Alta Walter MD [address] [place] [address] Level 2 [place] [phone] Appointment Related Social History Tobacco Use Types [...] Description 02/13/2024 13:00 EST Office Visit [facility] Neurology - S [place] 1 [place], [place] [address] Alta Walter MD [address] [place] [address], Level 2 [place] [address] documented as of this encounter Visit Diagnoses Not on filedocumented in this encounter Care Teams Stud Setter Relationship Specialty Start Date End Date Yumiko Tavarez MD [address] [place] [address] PCP - General 12/29/19 documented as of this encounter
--- OUTSIDE RECORDS SUMMARY | 2023-10-01 21:27 | XMS_ITS | Encounter Summary ---
Author Organization [facility] Address [address] [place] [address] Care Team Providers Care Guide Plant Name Role Phone Yumiko Tavarez MD Primary Care Provider [phone] Reason for Visit * Reason Comments Follow-up Telemedicine Video Visit Encounter Details Date Type Department Care Team ([facility] st Contact Info) Description 09/29/2021 13:30 EDT Telemedicine [facility] Neurology - S [address] [id number] Alta Walter MD [address] [place] [address] Level 2 [place] [address] Tardive dyskinesia (Primary Dx); Functional [...] visit Clinician Requesting Consultation: Yumiko Tavarez MD [address] [place] [phone] Fax: Primary Charge Machine Operator: Yumiko Tavarez 26 [facility] [phone] ASSESSMENT & PLAN / RECOMMENDATIONS 1. Tardive dyskinesia 2. Functional neurological symptom disorder with abnormal movement 3. Tremor Miguelina Morales is a 56 y.o. woman who returns to the [facility] Movement Disorders clinic for evaluation and [...] I offered her a referral to the [facility] clinical interstate bus driver assessment program. She is concerned that [...] y.o. woman who was referred to the [facility] Movement Disorders clinic for evaluation and [...] difficulty - has dysphagia, referral sent to [facility] Urinary dysfunction - okay in [...] naloxone (NARCAN) 4 mg/actuation nasal spray 1 [place] by nasal route as needed. ??? 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 medical, surgical, [...] following activities: Personal review of available imaging Patient/director of healthcare systems education Scanned health information available from the referring and/or primary provider(s) Review of the pertinent information in the electronic health record Care plan formulation Supportive counseling Alta Thakkar MD Attending Physician, Movement Disorders Department of Neurology documented in this encounter Plan of Treatment Upcoming Encounters Date Type Department Care Team (Late st Contact Info) Description 02/13/2024 13:00 EST Office Visit [facility] Neurology - S [address] 195481 Alta Walter MD [address] [place] [address], Level 2 [place] [address] documented as of this encounter Visit Diagnoses Diagnosis Tardive dyskinesia- Primary Subacute dyskinesia due to drugs 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
--- OUTSIDE RECORDS SUMMARY | 2023-10-01 21:27 | XMS_ITS | Encounter Summary ---
Author Organization [facility] Address [address] [place] [address] Care Team Providers Care Warp Tester Name Role Phone Yumiko Tavarez MD Primary Care Provider [phone] Reason for Visit * Reason Onset Date Comments Medications Refill 09/16/2021 Encounter Details Date Type Department Care Team (Late st Contact Info) Description 09/16/2021 Refill [facility] Neurology - S [address] 675991 Alta Walter MD [address] [place] [address], Level 2 [place] [phone] Medications Refill Social History Tobacco Use Types [...] Rx written: 08/15/2021 VPMS Inquiry needed? The [place] Prescription Monitoring System query has been completed [...] (reconcile pharmacy list): [id number] - [address] Is patient out of medication? Yes Picking up/mailing (location)/calling in/eprescribe? E-prescribe 30 day supply/90 day supply? 90 day Please call the patient with any questions. Thank you documented in this encounter Plan of Treatment Upcoming Encounters Date Type Department Care Team (Late st Contact Info) Description 02/13/2024 13:00 EST Office Visit [facility] Neurology - S [address] 0608[address] Alta Walter MD [address] [place] [address], Level 2 [place] [phone] documented as of this encounter Visit Diagnoses Not on filedocumented in this encounter Discontinued Medications Medication Sig Discontinue Reason Start Date End Da te clonazePAM (KLONOPIN) 1 mg tablet Take 1.5 Tablets by mouth 2 times daily. Daily Max: 3 mg Reorder 08/15/2021 09/16/2021 documented as of this encounter Care Teams Warp Tester Relationship Specialty Start Date End Date Yumiko Tavarez MD [address] [place] [address] PCP - General 12/29/19 documented as of this encounter
--- OUTSIDE RECORDS SUMMARY | 2023-10-01 21:27 | XMS_ITS | Encounter Summary ---
Author Organization [facility] Address [address] [place] [address] Care Team Providers Care Project Development Coordinator Name Role Phone Yumiko Tavarez MD Primary Care Provider [phone] Reason for Visit * Reason Onset Date Comments Medication Management 02/10/2021 Encounter Details Date Type Department Care Team (Late st Contact Info) Description 02/10/2021 Telephone [facility] Neurology - S [address] [phone] Alta Walter MD [address] [place] [address] Level 2 [place] [phone] Medication Management Social History Tobacco Use Types [...] Office Visit [facility] Neurology - S [place] 1 [place] [address] Alta Walter MD 1 [facility], Level 2 [place] [phone] documented as of this encounter Visit Diagnoses Diagnosis Tardive dyskinesia- Primary Subacute dyskinesia due to drugs documented in this encounter Care Teams Project Development Coordinator Relationship Specialty Start Date End Date Yumiko Tavarez MD [address] [place] [address] PCP - General 12/29/19 documented as of this encounter
--- OUTSIDE RECORDS SUMMARY | 2023-10-01 21:27 | XMS_ITS | Encounter Summary ---
Author Organization [facility] Address [address] [place] [address] Care Team Providers Care Separator Operator Shellfish Meats Name Role Phone Yumiko Tavarez MD Primary Care Provider [phone] Reason for Visit * Reason Onset Date Comments Appointment Related 08/15/2021 Encounter Details Date Type Department Care Team (Late st Contact Info) Description 08/15/2021 Telephone [facility] Neurology - S [address] [phone] Alta Walter MD [address] [place] [address] Level 2 [place] [phone] Appointment Related Social History Tobacco Use Types [...] Info) Description 02/13/2024 13:00 EST Office Visit [facility] Neurology - S [address] 207[address] Alta Walter MD [address] [place] [address], Level [address] [place] [address] documented as of this encounter Visit Diagnoses Not on filedocumented in this encounter Care Teams Separator Operator Shellfish Meats Relationship Specialty Start Date End Date Yumiko Tavarez MD [address] [place] [address] PCP - General 12/29/19 documented as of this encounter
--- OUTSIDE RECORDS SUMMARY | 2023-10-01 21:27 | XMS_ITS | Encounter Summary ---
Author Organization [facility] Address [address] [place] [address] Care Team Providers Care Pedigree Tracer Name Role Phone Yumiko Tavarez MD Primary Care Provider [phone] Encounter Details Date Type Department Care Team (Late st Contact Info) Description 10/12/2022 Lab Requisition [facility] Pathology & Laboratory Medicine - [facility] [address] [place] [address] Outr Resulting Lab, Provider Social History Tobacco [...] Info) Description 02/13/2024 13:00 EST Office Visit [facility] Neurology - S [place] [address] [place] [address] Alta Waletr MD [address] [place] [address], Level 2 [place] [phone] documented as of this encounter Procedures Procedure Name Priority Date/Time Associated Diagnosis Comments CHLAMYDIA/N. GONORRHOEAE AMPLIFIED NUCLEIC ACID, THINPREP Routine 10/11/2022 13:45 EDT documented in this encounter Results * CHLAMYDIA/N. GONORRHOEAE AMPLIFIED RNA, THINPREP (10/11/2022 13:45 EDT) Neisseria gonorrhoeae Result Negative Negative 10/13/2022 14:53 EDT [facility] Chlamydia trachomatis Result Negative Negative 10/13/2022 14:53 EDT [facility] Papanicolaou smear specimen (specimen) CERVIX UTERI STRUCTURE / Unknown 10/11/2022 13:45 EDT 10/13/2022 10:17 EDT Provider Outr Resulting Lab MICROBIOLOGY - GENERAL ORDERABLES [facility] [address] [place] [address] documented in this encounter Visit Diagnoses Not on filedocumented in this encounter Care Teams Pedigree Tracer Relationship Specialty Start Date End Date Yumiko Tavarez MD [address] [place] [address] PCP - General 12/29/19 documented as of this encounter
--- OUTSIDE RECORDS SUMMARY | 2023-10-01 21:27 | XMS_ITS | Encounter Summary ---
Author Organization [facility] Address [address] [place] [address] Care Team Providers Care Corrections Nurse Name Role Phone Yumiko Tavarez MD Primary Care Provider [phone] Encounter Details Date Type Department Care Team (Late st Contact Info) Description 07/26/2022 Lab Requisition [facility] Pathology & Laboratory Medicine - [facility] [address] [place], [place] [address] Selvin Marie MD [address] [place] [phone] Encounter for screening for malignant neoplasm of [...] [facility] Neurology - S [place] 1 [place], [place] [phone] Alta Walter MD [address] [place] [address], Level 2 [place] [phone] documented as of this encounter Procedures Procedure [...] explore management options, if applicable. 07/27/2022 16:57 [facility] Final Diagnosis A. COLON, TRANSVERSE, POLYP, BIOPSY: - Hyperplastic polyp. - Deeper levels examined. B. COLON, SIGMOID, POLYP, BIOPSY: - Hyperplastic polyp. 07/27/2022 16:57 [facility] Attestation By the signature below, the attending physician certifies that they have 1) personally conducted a gross and/or microscopic examination of the described specimen(s), and/or personally interpreted the results of laboratory testing of the described specimen(s), and 2) personally rendered or confirmed the above diagnosis. 07/27/2022 16:57 [facility] at 1657 Clinical History Screening colonoscopy; diverticulosis, colon polyp 07/27/2022 16:57 [facility] Gross Description A. Received in formalin labelled with proper patient identification (initials C, L) and transverse colon polyp x1 is a 0.3 x 0.3 x 0.1 cm paitning-pink tissue. Submitted intact in A1. B. Received in formalin labelled with proper patient identification (initials C, L) and sigmoid colon polyp x1 is a painting-pink tissue measuring 0.3 x 0.2 x 0.1 cm. Submitted intact in B1. CHRIS FREY(ASCP) 07/26/2022 18:02 07/27/2022 16:57 [facility] Performing Lab [facility] 07/27/2022 16:57 [facility] Scanned Images 07/27/2022 16:57 [facility] Tissue ENTIRE SIGMOID COLON / Unknown 07/26/2022 8:49 EDT 07/26/2022 16:54 EDT Tissue specimen (specimen) SIGMOID COLON STRUCTURE / Unknown 07/26/2022 8:49 EDT 07/26/2022 16:54 EDT Selvin Marie MD PATHOLOGY ORDERABLES [facility] [address] [place] [address] documented in this encounter Visit Diagnoses Diagnosis Encounter for screening for malignant neoplasm of colon Special screening for malignant neoplasms, colon documented in this encounter Care Teams Corrections Nurse Relationship Specialty Start Date End Date Yumiko Tavarez MD [address] [place] [address] PCP - General 12/29/19 documented as of this encounter
--- OUTSIDE RECORDS SUMMARY | 2023-10-01 21:27 | XMS_ITS | Encounter Summary ---
Author Organization [facility] Address [address] [place] [address] Care Team Providers Care Grain Spouter Name Role Phone Yumiko Tavarez MD Primary Care Provider [phone] Reason for Visit * Reason Comments Follow-up Telemedicine Video Visit Encounter Details Date Type Department Care Team ([facility] st Contact Info) Description 01/20/2021 16:00 EST Telemedicine [facility] Neurology - S [address] [id number] Alta Walter MD [address] [place] [address] Level 2 [place] [phone] Tardive dyskinesia (Primary Dx); Functional neurological symptom [...] visit Clinician Requesting Consultation: Yumiko Tavarez MD [address] [place] [phone] Fax: Primary Donkey Doctor: Yumiko Tavarez [address] [place] [phone] ASSESSMENT & PLAN / RECOMMENDATIONS 1. Tardive [...] suspect the leg andarm movements may be resources representative of a functional neurological disorder. # [...] - has dysphagia, referral sent to [facility] Urinary dysfunction - okay in the morning [...] naloxone (NARCAN) 4 mg/actuation nasal spray 1 [place] by nasal route as needed. ??? 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
--- OUTSIDE RECORDS SUMMARY | 2023-10-01 21:27 | XMS_ITS | Encounter Summary ---
Author Organization [facility] Address [address] [place] [address] Care Team Providers Care Sand Polisher Name Role Phone Yumiko Tavarez MD Primary Care Provider [phone] Reason for Referral * Consult (Routine/Next Available) - Closed Specialty Diagnoses / Procedures Referred By Contpayam t Referred To Contact Neurology Diagnoses Tardive dyskinesia Functional neurological symptom disorder with abnormal movement Anxiety Alta Walter MD [address] [place] [phone] Cat Dorantes MD [address] [place] [phone] Referral ID Status Reason Start Date Expiration Date V isits Requested Visits Authorized [id number] Closed Specialty Services Required 05/26/2020 1 1 Question Answer Reason for Request: Patient with history of anxiety, depression, PTSD who 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 Reason for Visit * Reason Comments Follow-up Encounter Details Date Type Department Care Team ([facility] st Contact Info) Description 05/26/2020 10:30 EDT Telemedicine [facility] Neurology - S [address] [phone] Alta Walter MD [address] [place] [phone] Tardive dyskinesia (Primary Dx); Functional neurological [...] for this encounter. Phone: N/A Fax: Primary Motorcycle Builder: Yumiko Tavarez [address] [place] [phone] ASSESSMENT & PLAN / RECOMMENDATIONS 1. Tardive dyskinesia 2. Functional neurological symptom disorder with abnormal movement 3. Anxiety Miguelina Morales is a 55 y.o. woman who returns to the [facility] [...] difficulty - has dysphagia, referral sent to [facility] Current Medications: Outpatient Medications Marked as [...] naloxone (NARCAN) 4 mg/actuation nasal spray 1 [place] by nasal route as needed. ??? 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 If there are any questions, please contact the office at [phone]. Alta Thakkar MD Attending Physician, Movement Disorders Department of Neurology documented in this encounter Plan of Treatment Upcoming Encounters Date Type Department Care Team (Late st Contact Info) Description 02/13/2024 13:00 EST Office Visit [facility] Neurology - S [address] [phone] Alta Walter MD [address] [place] [address] Level 2 [place] [phone] Scheduled Referrals Name Type Priority Associated Diagnoses [...] documented as of this encounter Care Teams Sand Polisher Relationship Specialty Start Date End Date Yumiko Tavarez MD [address] [place] [phone] PCP - General 12/29/19 documented as of this encounter
--- OUTSIDE RECORDS SUMMARY | 2023-10-01 21:27 | XMS_ITS | Encounter Summary ---
Author Organization [facility] Address [address] [place] [address] Care Team Providers Care Upsetter Helper Name Role Phone Yumiko Tavarez MD Primary Care Provider [phone] Reason for Visit * Reason Onset Date Comments Medication Management 09/16/2020 Encounter Details Date Type Department Care Team (Late st Contact Info) Description 09/16/2020 Telephone [facility] Neurology - S [address] [phone] Alta Walter MD [address] [place] [address] Level 2 [place] [phone] Medication Management Social History Tobacco Use Types [...] Encounter - Cristel Doss RN - 09/16/2020 8618 EDT Spoke with Yuriy pharmacist at [facility], he was unsure of what questions the [...] where in therapy this patient is. Ref: [id number] documented in this encounter Plan of Treatment Upcoming Encounters Date Type Department Care Team (Late st Contact Info) Description 02/13/2024 13:00 EST Office Visit [facility] Neurology - S [address] [phone] Alta Walter MD [address] [place] [address], Level 2 [place] [phone] documented as of this encounter Visit Diagnoses Not on filedocumented in this encounter Care Teams Upsetter Helper Relationship Specialty Start Date End Date Yumiko Tavarez MD [address] [place] [address] PCP - General 12/29/19 documented as of this encounter
--- OUTSIDE RECORDS SUMMARY | 2023-10-01 21:27 | XMS_ITS | Encounter Summary ---
Author Organization [facility] Address [address] [place] [address] Care Team Providers Care Journalist Name Role Phone Yumiko Tavarez MD Primary Care Provider [phone] Reason for Visit * Reason Onset Date Comments Medications Refill 10/05/2020 Encounter Details Date Type Department Care Team (Late st Contact Info) Description 10/05/2020 Refill [facility] Neurology - S [address] [address] Alta Walter MD [address] [place] [address], Level 2 [place] [phone] Medications Refill Social History Tobacco Use Types [...] Encounter - Orly Bertrand MA - 10/05/2020 7438 EDT Fax received from pharmacy requesting a [...] Description 02/13/2024 13:00 EST Office Visit [facility] Neurology - S [address] [address] Alta Walter MD [address] [place] [address], [facility] 2 [place] [address] documented as of this encounter Visit Diagnoses Not on filedocumented in this encounter Discontinued Medications Medication Sig Discontinue Reason Start Date End Da te deutetrabenazine 12 mg tablet Take 1 Tablet by mouth every morning for 7 days, THEN 1 Tablet 2 times daily for 21 days. Reorder 09/10/2020 10/05/2020 documented as of this encounter Care Teams Journalist Relationship Specialty Start Date End Date Yumiko Tavarez MD [address] [place] [address] PCP - General 12/29/19 documented as of this encounter
--- OUTSIDE RECORDS SUMMARY | 2023-10-01 21:27 | XMS_ITS | Encounter Summary ---
Author Organization [facility] Address [address] [place] [address] Care Team Providers Care Facility Maintenance Technician Name Role Phone Yumiko Tavarez MD Primary Care Provider [phone] Reason for Visit * Reason Onset Date Comments Medication Management 08/15/2021 Encounter Details Date Type Department Care Team (Late st Contact Info) Description 08/15/2021 Telephone [facility] Neurology - S [address] [id number] Alta Walter MD [address] [place] [address] Level 2 [place] [phone] Medication Management Social History Tobacco Use Types [...] 1248 EDT TC to patient. She did mixing picker tender her new prescription and was scheduled for a televideo visit with Dr. Thakkar. No other questions or concerns. * Telephone Encounter - Carline Trimble RN - 08/15/2021 1426 EDT Images from the original note were not included. Alta Thakkar MD Neuro Move Community Planner; Meme Lemus 1 hour ago (12:45) We [...] 02/13/2024 13:00 EST Office Visit [facility] Neurology - S [place] 1 [place] [address] Alta Walter MD 1 [facility], Level 2 [place] [address] documented as of this encounter Visit Diagnoses Not on filedocumented in this encounter Discontinued Medications Medication Sig Discontinue Reason Start Date End Da te clonazePAM (KLONOPIN) 0.5 mg tablet Take 2 tablets in the morning and 1 tablet at night x 1 week, then 2 tablets twice daily thereafter Dose adjustment 06/23/2021 08/15/2021 documented as of this encounter Care Teams Facility Maintenance Technician Relationship Specialty Start Date End Date Yumiko Tavarez MD [address] [place] [address] PCP - General 12/29/19 documented as of this encounter
--- OUTSIDE RECORDS SUMMARY | 2023-10-01 21:27 | XMS_ITS | Encounter Summary ---
Author Organization [facility] Address [address] [place] [address] Care Team Providers Care Form Setter Metal Road Forms Name Role Phone Yumiko Tavarez MD Primary Care Provider [phone] Reason for Visit * Reason Onset Date Comments Appointment Related 11/18/2020 Encounter Details Date Type Department Care Team (Late st Contact Info) Description 11/18/2020 Telephone [facility] Neurology - S [address] [phone] Alta Walter MD [address] [place] [address] Level 2 [place] [phone] Appointment Related Social History Tobacco Use Types [...] Telephone Encounter - Meme Lemus - 11/18/2020 9586 EDT Spoke to Miguelina, cancelled her 4 MO FUR On-SITE appt with Dr. Thakkar on Sunday11/22/2020 at 2:45 PM and rescheduled it to Sunday01/24/2021 at 4:15 PM. documented in this encounter Plan of Treatment Upcoming Encounters Date Type Department Care Team (Late st Contact Info) Description 02/13/2024 13:00 EST Office Visit [facility] Neurology - S [address] [address] Alta Walter MD [address] [place] [address], Level 2 [place] [address] documented as of this encounter Visit Diagnoses Not on filedocumented in this encounter Care Teams Form Setter Metal Road Forms Relationship Specialty Start Date End Date Yumiko Tavarez MD [address] [place] [address] PCP - General 12/29/19 documented as of this encounter
--- OUTSIDE RECORDS SUMMARY | 2023-10-01 21:27 | XMS_ITS | Encounter Summary ---
Author Organization [facility] Address [address] [place] [address] Care Team Providers Care Instruction Dean Name Role Phone Yumiko Tavarez MD Primary Care Provider [phone] Reason for Visit * Reason Onset Date Comments Appointment Related 02/28/2022 Encounter Details Date Type Department Care Team (Late st Contact Info) Description 02/28/[address] [facility] Neurology - S [address] [id number] Alta Walter MD [address] [place] [address] Level 2 [place] [phone] Appointment Related Social History Tobacco Use Types [...] for 04/13/2022 at 13:00PM TVD FUR 4M [phone] Zoom scheduling needed documented in this encounter Plan of Treatment Upcoming Encounters Date Type Department Care Team (Late st Contact Info) Description 02/13/2024 13:00 EST Office Visit [facility] Neurology - S [place] 1 [place] [address] Alta Walter MD 1 [facility], Level 2 [place] [address] documented as of this encounter Visit Diagnoses Not on filedocumented in this encounter Care Teams Instruction Dean Relationship Specialty Start Date End Date Yumiko Tavarez MD [address] [place] [address] PCP - General 12/29/19 documented as of this encounter
--- OUTSIDE RECORDS SUMMARY | 2023-10-01 21:27 | XMS_ITS | Encounter Summary ---
Author Organization [facility] Address [address] [place] [address] Care Team Providers Care Forensic Locksmith Name Role Phone Yumiko Tavarez MD Primary Care Provider [phone] Encounter Details Date Type Department Care Team (Late st Contact Info) Description 03/03/2021 [facility] [address] [place], [place] [address] Blanca Vaughn, [facility] [address] [facility] 23 [place] [phone] Social History Tobacco Use Types Packs/Day Years [...] Info) Description 02/13/2024 13:00 EST [facility] Neurology - S [place] 1 [place], [place] [address] Alta Walter MD [address] [place] [address], Level 2 [place] [phone] documented as of this encounter Visit Diagnoses Not on filedocumented in this encounter Care Teams Forensic Locksmith Relationship Specialty Start Date End Date Yumiko Tavarez MD [address] [place] [address] PCP - General 12/29/19 documented as of this encounter
--- OUTSIDE RECORDS SUMMARY | 2023-10-01 21:27 | XMS_ITS | Encounter Summary ---
Author Organization [facility] Address [address] [place] [address] Care Team Providers Care Public Service Officer Name Role Phone Yumiko Tavarez MD Primary Care Provider [phone] Encounter Details Date Type Department Care Team (Late st Contact Info) Description 10/25/2020 Specialty Pharmacy [facility] - [facility] [address] [place], [place] [address] Blanca Vaughn, [facility] [address] [facility] 23 [place] [phone] Social History Tobacco Use Types Packs/Day Years [...] [facility] Neurology - S [place] 1 [place], [place] [address] Alta Walter MD [address] [place] [address], Level 2 [place] [address] documented as of this encounter Visit Diagnoses Not on filedocumented in this encounter Care Teams Public Service Officer Relationship Specialty Start Date End Date Yumiko Tavarez MD [address] [place] [address] PCP - General 12/29/19 documented as of this encounter
--- OUTSIDE RECORDS SUMMARY | 2023-10-01 21:27 | XMS_ITS | Encounter Summary ---
Author Organization [facility] Address [address] [place] [address] Care Team Providers Care Crawler Crane Operator Name Role Phone Yumiko Tavarez MD Primary Care Provider [phone] Reason for Visit * Reason Onset Date Comments Prior Auth, Medication 08/10/2020 Ingrezza 40 & 80mg Prior Auth, Medication 08/10/2020 Austedo 4 8mg/day Encounter Details Date Type Department Care Team (Late st Contact Info) Description 08/10/2020 Telephone [facility] Neurology - S [place] [address] [place] [id number] Alta Walter MD [address] [place] [address], Level 2 [place] [address] Prior Auth, Medication (Ingrezza 40 [...] 6mg Approved: 08/19/20 through 08/18/21 Authorization Number: [id number] Required Pharmacy: [facility] Preferred [facility]acy: [facility] Prior Authorization Submission Process Medication: Austedo 6mg Insurance: RxBenefits Date PA Request Received: 08/11/20 PA Submission Date: 08/18/20 EOC ID: [id number] Submitted by: Gerry Prior Authorization Approval Medication: Austedo 12mg Approved: 08/13/20 through 08/12/21 Authorization Number: [id number] Required Pharmacy: [facility] Preferred [facility]acy: [facility] Prior Authorization Submission Process Medication: Austedo 12mg - 48mg/day Insurance: MAYELA - RxBenefits Date PA Request Received: 08/11/20 PA Submission Date: 08/11/20 EOC ID: [id number] Submitted by: Gerry documented in this encounter Plan of Treatment Upcoming Encounters Date Type Department Care Team (Late st Contact Info) Description 02/13/2024 13:00 EST Office Visit [facility] Neurology - S [address] [phone] Alta Walter MD [address] [place] [address] 2 [place] [phone] documented as of this encounter Visit Diagnoses Not on filedocumented in this encounter Discontinued Medications Medication Sig Discontinue Reason Start Date End Da te tetrabenazine 25 mg tablet tablet Take 1.5 tablets 3 times daily for 2 weeks, then increase to 2 tablets three times daily Alternate therapy 07/27/2020 08/26/2020 documented as of this encounter Care Teams Crawler Crane Operator Relationship Specialty Start Date End Date Yumiko Tavarez MD [address] [place] [address] PCP - General 12/29/19 documented as of this encounter
--- OUTSIDE RECORDS SUMMARY | 2023-10-01 21:27 | XMS_ITS | Encounter Summary ---
Author Organization [facility] Address [address] [place] [address] Care Team Providers Care Gas Operator Name Role Phone Yumiko Tavarez MD Primary Care Provider [phone] Encounter Details Date Type Department Care Team (Late st Contact Info) Description 03/28/2021 Specialty Pharmacy [facility] - [facility] [address] [place], [place] [address] Blanca Vaughn, [facility] [address] [facility] 23 [place] [phone] Social History Tobacco Use Types Packs/Day Years [...] Info) Description 02/13/2024 13:00 EST Office Visit [facility] Neurology - S [place] 1 [place], [place] [address] Alta Walter MD [address] [place] [address], Level 2 [place] [address] documented as of this encounter Visit Diagnoses Not on filedocumented in this encounter Care Teams Gas Operator Relationship Specialty Start Date End Date Yumiko Tavarez MD [address] [place] [address] PCP - General 12/29/19 documented as of this encounter
--- OUTSIDE RECORDS SUMMARY | 2023-10-01 21:27 | XMS_ITS | Encounter Summary ---
Author Organization [facility] Address [address] [place] [address] Care Team Providers Care Hardware Manager Name Role Phone Yumiko Tavarez MD Primary Care Provider [phone] Reason for Visit * Reason Onset Date Comments Prior Auth, Medication 03/01/2021 Ingrezza Encounter Details Date Type Department Care Team ([facility] st Contact Info) Description 03/01/2021 Telephone [facility] Neurology - S [address] [phone] Alta Walter MD [address] [place] [address], Level 2 [place] [address] Prior Auth, Medication (Ingrezza ) [...] Authorization Approval Medication: Ingrezza 80mg maintenance Insurance Name:Followap Insurance Type: Commercial Approval Dates: 03/03/2021-02/28/2022 Authorization Number: [id number] Benefits Information: [facility] able to fill? : Yes Required Pharmacy: [facility] Additional Info/Other Notes: * Telephone Encounter - Edi Vega - 03/03/2021 1453 EST Prior Authorization Submission Process ?? Medication: Ingrezza 80mg daily - continuation Insurance: [employer] Insurance Type: Commercial Date PA Request Received: 02/11/21 PA Submission Date: 03/03/21 [facility] Mooney: n/a, submitting via PromptPA Notes: [facility] ID: [id number] Submitted by: Edi Vega Phone: [phone] * Telephone Encounter - Blanca Vaughn RPH - 03/02/2021 1313 EST [facility] Neurology: Medication Therapy Initiation Miguelina Morales is a 56 y.o. female who will be initiating treatment with Ingrezza for Tardive Dyskinesia. Anticipated start date: Mar 2020 Filling Pharmacy: [facility] Specialty Pharmacy I performed a complete [...] [facility] Bl[facility] Vaughn, Pharm.D. [facility] Ambulatory Pharmacist Clinician - Neurology 03/02/2021 ADDENDUM: [facility] is unable to purchase/dispense Ingezza. Prescriptions rerouted to [facility] Pharmacy,override obtained my pharmacy staff so medication may be filled by [facility]. Medication will be delivered to patient Sunday03/07/2021 * Telephone Encounter - Gerry Wagner - 03/01/2021 1340 EST Prior Authorization Approval Medication: Ingrezza Insurance Name: [employer] Insurance Type: Commercial Approval Dates: 03/01/21 to 02/28/22 Authorization Number: [id number] Benefits Information: [facility] able to fill? : No Required Pharmacy: [facility] Prior Authorization Submission Process - Urgent Medication: Ingrezza 40mg & 80mg Insurance: [employer] Insurance Type: Commercial Date PA Request Received: 02/11/21 PA Submission Date: 03/01/21 [facility] Mooney: n/a, submitting via portal Notes: EOC ID: [id number] Submitted by: Gerry Phone: [phone] documented in this encounter Plan of Treatment Upcoming Encounters Date Type Department Care Team (Late st Contact Info) Description 02/13/2024 13:00 EST Office Visit [facility] Neurology - S [place] 1 [place] [address] Alta Walter MD [address] [place] [address], Level 2 [place] [address] documented as of this encounter Visit Diagnoses [...] documented as of this encounter Care Teams Hardware Manager Relationship Specialty Start Date End Date Yumiko Tavarez MD [address] [place] [address] PCP - General 12/29/19 documented as of this encounter
--- OUTSIDE RECORDS SUMMARY | 2023-10-01 21:27 | XMS_ITS | Encounter Summary ---
Author Organization [facility] Address [address] [place] [address] Care Team Providers Care Dials Inspector Name Role Phone Yumiko Tavarez MD Primary Care Provider [phone] Reason for Visit * Reason Onset Date Comments Medication Management 10/22/2020 Austedo Encounter Details Date Type Department Care Team (Late st Contact Info) Description 10/22/2020 Telephone [facility] Neurology - S [address] [phone] Alta Walter MD [address] [place] [address], Level 2 [place] [address] Medication Management (Austedo) Social History [...] Encounter - Sunni Ivey RN - 11/05/2020 4052 EDT Spoke with Miguelina and let her [...] [facility] Neurology - S [address] [address] Alta Walter MD [address] [place] [address], Level [address] [place] [phone] documented as of this encounter Visit Diagnoses Not on filedocumented in this encounter Care Teams Dials Inspector Relationship Specialty Start Date End Date Yumiko Tavarez MD [address] [place] [address] PCP - General 12/29/19 documented as of this encounter
--- OUTSIDE RECORDS SUMMARY | 2023-10-01 21:27 | XMS_ITS | Encounter Summary ---
Author Organization [facility] Address [address] [place] [address] Care Team Providers Care Clerical And Administrative Workers Name Role Phone Yumiko Tavarez MD Primary Care Provider [phone] Reason for Visit * Reason Onset Date Comments Appointment Related 05/25/2021 Encounter Details Date Type Department Care Team (Late st Contact Info) Description 05/25/2021 Telephone [facility] Neurology - S [address] [address] Alta Walter MD [address] [place] [address] Level 2 [place] [address] Appointment Related Social History Tobacco Use Types [...] Info) Description 02/13/2024 13:00 EST Office Visit [facility] Neurology - S [place] 1 [place] [address] Alta Walter MD [address] [place] [address], Level 2 [place] [address] documented as of this encounter Visit Diagnoses Not on filedocumented in this encounter Care Teams Clerical And Administrative Workers Relationship Specialty Start Date End Date Yumiko Tavarez MD [address] [place] [address] PCP - General 12/29/19 documented as of this encounter
--- OUTSIDE RECORDS SUMMARY | 2023-10-01 21:27 | XMS_ITS | Encounter Summary ---
Author Organization [facility] Address [address] [place] [address] Care Team Providers Care Upper Tier Name Role Phone Yumiko Tavarez MD Primary Care Provider [phone] Reason for Visit * Reason Comments Follow-up Encounter Details Date Type Department Care Team ([facility] st Contact Info) Description 12/07/2022 15:00 EDT Telemedicine [facility] Neurology - S [address] [address]38[address] Alta Walter MD [address] [place] [address] Level 2 [place] [phone] Tardive dyskinesia (Primary Dx); Postural tremor; Functional [...] for this encounter. Phone: N/A Fax: Primary Barrel Charrer: Yumiko Tavarez [address] [place] [phone] ASSESSMENT & PLAN / RECOMMENDATIONS 1. Tardive dyskinesia 2. Postural tremor 3. Functional neurological symptom disorder with abnormal movement Miguelina Morales is a 57 y.o. 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 Past medical, surgical, [...] visit was spent on the following activities: Patient/caretaker grounds education Review of the pertinent information in [...] [facility] Neurology - S [place] [address] [place] [phone] Alta Walter MD [address] [place] [address] 2 [place] [address] documented as of this encounter Visit Diagnoses [...] 01/01/2023 added in this encounter Care Teams Upper Tier Relationship Specialty Start Date End Date Yumiko Tavarez MD [address] [place] [phone] PCP - General 12/29/19 documented as of this encounter
--- OUTSIDE RECORDS SUMMARY | 2023-10-01 21:27 | XMS_ITS | Encounter Summary ---
Author Organization [facility] Address [address] [place] [address] Care Team Providers Care Mri Technologist Name Role Phone Yumiko Tavarez MD Primary Care Provider [phone] Reason for Visit * Reason Onset Date Comments Prior Auth, Medication 06/02/2020 Encounter Details Date Type Department Care Team (Late st Contact Info) Description 06/02/2020 Telephone [facility] Neurology - S [address] [phone] Alta Walter MD [address] [place] [address], Level 2 [place] [address] Prior Auth, Medication Social History [...] to be sent to [facility] - phone [phone]. [employer] will not cover it * Telephone [...] tablet tid Approved: through 06/10/21 Authorization Number: [id number] Benefits Information or Other Notes: Required Pharmacy: [...] Request Received: 06/01/20 PA Submission Date: 06/02/20 [facility] Mooney: n/a submitted via fax Submitted by: Za Phone: [phone]. documented in this encounter Plan of Treatment Upcoming Encounters Date Type Department Care Team (Late st Contact Info) Description 02/13/2024 13:00 EST Office Visit [facility] Neurology - S [address] [address]40[address] Alta Walter MD [address] [place] [address] 2 [place] [address] documented as of this encounter Visit Diagnoses Not on filedocumented in this encounter Discontinued Medications Medication Sig Discontinue Reason Start Date End Da te tetrabenazine 12.5 mg tablet Take 1 Tab by mouth 3 times daily. Reorder 05/31/2020 06/15/2020 documented as of this encounter Care Teams Mri Technologist Relationship Specialty Start Date End Date Yumiko Tavarez MD [address] [place] [address] PCP - General 12/29/19 documented as of this encounter
--- OUTSIDE RECORDS SUMMARY | 2023-10-01 21:27 | XMS_ITS | Encounter Summary ---
Author Organization [facility] Address [address] [place] [address] Care Team Providers Care Mid Level Developer Name Role Phone Yumiko Tavarez MD Primary Care Provider [phone] Reason for Visit * Reason Comments Follow-up Telemedicine Video Visit Encounter Details Date Type Department Care Team ([facility] st Contact Info) Description 07/22/2020 10:00 EDT Telemedicine [facility] Neurology - S [address] [phone] Alta Walter MD [address] [place] [address] Level 2 [place] [phone] Tardive dyskinesia (Primary Dx); Tremor; Peripheral polyneuropathy [...] visit Clinician Requesting Consultation: Yumiko Tavarez MD [address] [place] [phone] Fax: Primary Clam Bed Worker: Yumiko Tavarez [address] [place] [phone] ASSESSMENT & PLAN / RECOMMENDATIONS 1. Tardive [...] able to review both the previous DatScan ([facility]) in comparison to the more recent one ([facility]). There is a clear difference that I [...] - has dysphagia, referral sent to [facility] Current Medications: Outpatient Medications Marked [...] naloxone (NARCAN) 4 mg/actuation nasal spray 1 [place] by nasal route as needed. ??? 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 If there are any questions, please contact the office at [phone]. Alta Thakkar MD Attending Physician, Movement Disorders Department of Neurology documented in this encounter Plan of Treatment Upcoming Encounters Date Type Department Care Team (Late st Contact Info) Description 02/13/2024 13:00 EST Office Visit [facility] Neurology - S [address] [address] Alta Walter MD [address] [place] [address] 2 [place] [address] documented as of this encounter Visit Diagnoses Diagnosis Tardive dyskinesia- Primary Subacute dyskinesia due to drugs Tremor Abnormal involuntary movements Peripheral polyneuropathy Unspecified hereditary and idiopathic peripheral neuropathy documented in this encounter Care Teams Mid Level Developer Relationship Specialty Start Date End Date Yumiko Tavarez MD [address] [place] [address] PCP - General 12/29/19 documented as of this encounter
--- OUTSIDE RECORDS SUMMARY | 2023-10-01 21:27 | XMS_ITS | Encounter Summary ---
Author Organization [facility] Address [address] [place] [address] Care Team Providers Care Wax Pattern Repairer Name Role Phone Yumiko Tavarez MD Primary Care Provider [phone] Reason for Visit * Reason Onset Date Comments Medication Management 07/21/2020 Encounter Details Date Type Department Care Team (Late st Contact Info) Description 07/21/2020 Telephone [facility] Neurology - S [address] [phone] Alta Walter MD [address] [place] [address] Level 2 [place] [phone] Medication Management Social History Tobacco Use Types [...] RN - 07/21/2020 1602 EDT TC to [facility], spoke to Rm Reardon Provided verbal order for tetrabenazine 25 mg tablets; verbal order confirmed. * Telephone Encounter - Orly Bertrand MA - 07/21/2020 5721 EDT TC received from pharmacist at [facility] requesting a call back regarding Tetrabenazine, they have a current order for 12.5 mg TID, per patient message with Dr. Thakkar on 07/16/2020, was instructed to increase medication to 25 mg TID. [facility] verbal order [phone] documented in this encounter Plan of Treatment Upcoming Encounters Date Type Department Care Team (Late st Contact Info) Description 02/13/2024 13:00 EST Office Visit [facility] Neurology - S [address] [address] Alta Walter MD [address] [place] [address] 2 [place] [address] documented as of this encounter Visit Diagnoses Not on filedocumented in this encounter Discontinued Medications Medication Sig Discontinue Reason Start Date End Da te tetrabenazine 12.5 mg tablet Take 1 Tab by mouth 3 times daily. Dose adjustment 06/16/2020 07/21/2020 documented as of this encounter Care Teams Wax Pattern Repairer Relationship Specialty Start Date End Date Yumiko Tavarez MD [address] [place] [address] PCP - General 12/29/19 documented as of this encounter
--- OUTSIDE RECORDS SUMMARY | 2023-10-01 21:27 | XMS_ITS | Encounter Summary ---
Author Organization [facility] Address [address] [place] [address] Care Team Providers Care Product Sales Engineer Name Role Phone Yumiko Tavarez MD Primary Care Provider [phone] Reason for Visit * Reason Onset Date Comments Medications Refill 06/18/2020 Encounter Details Date Type Department Care Team (Late st Contact Info) Description 06/18/2020 Telephone [facility] Neurology - S [address] [phone] Alta Walter MD [address] [place] [address] Level 2 [place] [address] Medications Refill Social History Tobacco [...] back if she hasn't heard anything from [facility] in a couple days. * Telephone Encounter - Kane Parker RN - 06/21/2020 1607 EDT Spoke with [facility]- provided them with the PA approval #. They are adding this to her chart and sending to the PA team. * Telephone Encounter - Martha Hutchinson MA - 06/21/2020 1513 EDT Received a phone call from [facility] on the refill line. Asking if the PA had been received as this pt's plan require a PA for the Rx. [phone] * Telephone Encounter - Kane Parker RN - 06/18/2020 1731 EDT Spoke with Miguelina to inform her that I sent the prescription to [facility] on 06/16/20. Informed her thatI just spoke with [facility] and they did receive the prescription and reported that it is in process.Informed her that the guest services representative said that she will receive a call once it has been processed to schedule the delivery. I apologized to Miguelina for this inconvenience. She will call me back on Sunday if she still hasn't heard anything from [facility]. * Telephone Encounter - Ghazala Bowen - 06/18/2020 1634 EDT Patient requesting to have tetrabenazine 12.5 mg tablet resent to [facility] - [address] documented in this encounter Plan of Treatment Upcoming Encounters Date Type Department Care Team (Late st Contact Info) Description 02/13/2024 13:00 EST Office Visit [facility] Neurology - S [place] 1 [place] [address] Alta Walter MD 1 [facility], Level 2 [place] [address] documented as of this encounter Visit Diagnoses Not on filedocumented in this encounter Care Teams Product Sales Engineer Relationship Specialty Start Date End Date Yumiko Tavarez MD [address] [place] [address] PCP - General 12/29/19 documented as of this encounter
--- OUTSIDE RECORDS SUMMARY | 2023-10-01 21:27 | XMS_ITS | Encounter Summary ---
Author Organization [facility] Address [address] [place] [address] Care Team Providers Care Cost Clerk Name Role Phone Yumiko Tavarez MD Primary Care Provider Reason for Visit * Reason Onset Date Comments Medication Management 11/18/2020 Encounter Details Date Type Department Care Team (Late st Contact Info) Description 11/18/2020 Telephone [facility] Neurology - S [address] [phone] Alta Walter MD [address] [place] [address] Level 2 [place] [address] Medication Management Social History Tobacco [...] Telephone Encounter - Meme Lemus - 11/18/2020 2337 EDT Spoke to Miguelina she states the [...] Visit [facility] Neurology - S [address] [address] Alta Walter MD [address] [place] [address], Level 2 [place] [address] documented as of this encounter Visit Diagnoses Not on filedocumented in this encounter Care Teams Cost Clerk Relationship Specialty Start Date End Date Yumiko Tavarez MD [address] [place] [address] PCP - General 12/29/19 documented as of this encounter
--- OUTSIDE RECORDS SUMMARY | 2023-10-01 21:27 | XMS_ITS | Encounter Summary ---
Author Organization [facility] Address [address] [place] [address] Care Team Providers Care Hand Woven Carpet And Rug Mender Name Role Phone Yumiko Tavarez MD Primary Care Provider [phone] Reason for Visit * Reason Onset Date Comments Medication Management 09/30/2021 Encounter Details Date Type Department Care Team (Late st Contact Info) Description 09/30/2021 Telephone [facility] Neurology - S [address] [phone] Alta Walter MD [address] [place] [address] Level 2 [place] [phone] Medication Management Social History Tobacco Use Types [...] Refill will be needed by October 14. excentost message to Miguelina requesting she request the refill next Sunday. * Telephone Encounter - Alta Laughlin RN - 10/04/2021 1324 EDT Per separate [employer] message from Miguelina 10/03/21: Alta, you asked how many Klonopin I have left. I counted and there is [address] Del Valle writes new script, could you please have her send it to [facility] on [facility] in [place]. Also if you could just shoot me [...] w/ 5 RF (1.5mg BID) OVN Dr. DelV alle 09/29/2021 indicates: - continue clonazepam 1mg - 1.5 tablets BID + 0.5mg mid-day VPMS Inquiry needed? yes The [place] Prescription Monitoring System query has been completed [...] Telephone Encounter - Naye Lara - 09/30/2021 2437 EDT Miguelina called in this afternoon looking to see if the medication refill that Dr. Del Valle was going to call in for her after her appointment yesterday, September 29, 2021. The medication is for clonazePAM (KLONOPIN) 1 mg tablet. She states that the dosage hs changed. She uses the [employer] [facility] Please call to advise. Thank you documented in this encounter Plan of Treatment Upcoming Encounters Date Type Department Care Team (Late st Contact Info) Description 02/13/2024 13:00 EST Office Visit [facility] Neurology - S [address] [address] Alta Walter MD [address] [place] [address] Level 2 [place] [address] documented as of this encounter Visit Diagnoses Not on filedocumented in this encounter Discontinued Medications Medication Sig Discontinue Reason Start Date End Da te clonazePAM (KLONOPIN) 1 mg tablet Take 1.5 Tablets by mouth 2 times daily. Daily Max: 3 mg Reorder 09/16/2021 10/12/2021 documented as of this encounter Care Teams Hand Woven Carpet And Rug Mender Relationship Specialty Start Date End Date Yumiko Tavarez MD [address] [place] [address] PCP - General 12/29/19 documented as of this encounter
--- OUTSIDE RECORDS SUMMARY | 2023-10-01 21:27 | XMS_ITS | Encounter Summary ---
Author Organization [facility] Address [address] [place] [address] Care Team Providers Care Art Gallery Director Name Role Phone Yumiko Tavarez MD Primary Care Provider [phone] Reason for Visit * Reason Onset Date Comments Appointment Related 12/23/2020 Encounter Details Date Type Department Care Team (Late st Contact Info) Description 12/23/2020 Telephone [facility] Neurology - S [address] [phone] Alta Walter MD [address] [place] [address] Level 2 [place] [phone] Appointment Related Social History Tobacco Use Types [...] Office Visit [facility] Neurology - S [place] 1 [place] [address] Alta Walter MD [address] [place] [address], Level 2 [place] [address] documented as of this encounter Visit Diagnoses Not on filedocumented in this encounter Care Teams Art Gallery Director Relationship Specialty Start Date End Date Yumiko Tavarez MD [address] [place] [address] PCP - General 12/29/19 documented as of this encounter
--- OUTSIDE RECORDS SUMMARY | 2023-10-01 21:27 | XMS_ITS | Encounter Summary ---
Author Organization [facility] Address [address] [place] [address] Care Team Providers Care Health Policy Manager Name Role Phone Yumiko Tavarez MD Primary Care Provider [phone] Reason for Visit * Reason Onset Date Comments Appointment Related 05/31/2020 Encounter Details Date Type Department Care Team (Late st Contact Info) Description 05/31/2020 Telephone [facility] Neurology - S [address] [phone] Alta Walter MD [address] [place] [address] Level 2 [place] [phone] Appointment Related Social History Tobacco Use Types [...] for 07/22/20 at 10am 2 mo FUR/televdeo Meeting ID: [id number] Password: [id number] documented in this encounter Plan of Treatment Upcoming Encounters Date Type Department Care Team (Late st Contact Info) Description 02/13/2024 13:00 EST Office Visit [facility] Neurology - S [address] [phone] Alta Walter MD [address] [place] [address] 2 [place] [phone] documented as of this encounter Visit Diagnoses Not on filedocumented in this encounter Care Teams Health Policy Manager Relationship Specialty Start Date End Date Yumiko Tavarez MD [address] [place] [address] PCP - General 12/29/19 documented as of this encounter
--- OUTSIDE RECORDS SUMMARY | 2023-10-01 21:27 | XMS_ITS | Encounter Summary ---
Author Organization [facility] Address [address] [place] [address] Care Team Providers Care Baby Registry Sales Consultant Name Role Phone Yumiko Tavarez MD Primary Care Provider [phone] Reason for Visit * Reason Onset Date Comments Medication Management 12/09/2021 Encounter Details Date Type Department Care Team (Late st Contact Info) Description 12/09/2021 Telephone [facility] Neurology - S [address] [phone] Alta Walter MD [address] [place] [address] Level 2 [place] [phone] Medication Management Social History Tobacco Use Types [...] Encounter - Alta Freeman RN - 12/14/[address] Thakkar as sent the new clonazapam rx with increase to 1mg midday. [employer] message to Miguelina. * Telephone Encounter - Alta Freeman RN - 12/14/2021 1321 EDT Medication Rx Request Medication: clonazePAM (KLONOPIN) 1 mg tablet Last Visit in login department: 09/29/2021 Next appointment Scheduled: 03/02/2022 Date previous Rx written: 10/12/2021 VPMS Inquiry needed? Yes The [place] Prescription Monitoring System query has been completed [...] this before getting the refill. Please call [facility]Architonice. Thank you * Telephone Encounter - Alejo [...] FUR 03/02/22 at 3:30pm TVD FUR 4M [email or web address] [phone] Zoom scheduling needed documented in this encounter Plan of Treatment Upcoming Encounters Date Type Department Care Team (Late st Contact Info) Description 02/13/2024 13:00 EST Office Visit [facility] Neurology - S [address] [phone] Alta Walter MD [address] [place] [address], [facility] 2 [place] [address] documented as of this encounter Visit Diagnoses Not on filedocumented in this encounter Discontinued Medications Medication Sig Discontinue Reason Start Date End Da te clonazePAM (KLONOPIN) 1 mg tablet Take 1.5 Tablets by mouth 2 times daily AND 0.5 Tablets daily. Daily Max: 3.5 mg. Reorder 10/12/2021 12/14/2021 documented as of this encounter Care Teams Baby Registry Sales Consultant Relationship Specialty Start Date End Date Yumiko Tavarez MD [address] [place] [address] PCP - General 12/29/19 documented as of this encounter
--- OUTSIDE RECORDS SUMMARY | 2023-10-01 21:27 | XMS_ITS | Encounter Summary ---
Author Organization [facility] Address [address] [place] [address] Care Team Providers Care Real Estate Asset Manager Name Role Phone Yumiko Tavarez MD Primary Care Provider [phone] Reason for Visit * Reason Onset Date Comments Medications Refill 08/25/2020 Encounter Details Date Type Department Care Team (Late st Contact Info) Description 08/25/2020 Telephone [facility] Neurology - S [address] [phone] Alta Walter MD [address] [place] [address] Level 2 [place] [address] Medications Refill Social History Tobacco [...] the prescription was in the works for [employer], I confirmed that it was being worked on as recently as last night Please send script to [facility] documented in this encounter Plan of Treatment Upcoming Encounters Date Type Department Care Team (Late st Contact Info) Description 02/13/2024 13:00 EST Office Visit [facility] Neurology - S [place] 1 [place] [address] Alta Walter MD 1 [facility], Level 2 [place] [address] documented as of this encounter Visit Diagnoses Not on filedocumented in this encounter Care Teams Real Estate Asset Manager Relationship Specialty Start Date End Date Yumiko Tavarez MD [address] [place] [address] PCP - General 12/29/19 documented as of this encounter
--- OUTSIDE RECORDS SUMMARY | 2023-10-01 21:27 | XMS_ITS | Encounter Summary ---
Author Organization [facility] Address [address] [place] [address] Care Team Providers Care Planer Mill Grader Name Role Phone Yumiko Tavarez MD Primary Care Provider [phone] Encounter Details Date Type Department Care Team (Latest Contact Info) Description 10/13/2022 Lab Requisition [facility] Pathology & Laboratory Medicine - [place] [facility] [address] [place] [address] Yumiko Tavarez MD [address] [place] [phone] Encounter for gynecological examination (general) (routine) without [...] 02/13/2024 13:00 EST Office Visit [facility] Neurology - S [address] [address]67[address] Alta Walter MD [address] [place] [address] Level 2 [place] [phone] documented as of this encounter Procedures Procedure Name Priority Date/Time Associated Diagnosis Comments PAP TEST Today 10/11/2022 13:45 EDT Encounter for gynecological examination (general) (routine) without abnormal findings Encounter for general adult medical examination without abnormal findings documented in this encounter Results * PAP TEST (10/11/2022 13:45 EDT) Specimens A. Cervix and/or Endocervix , ThinPrep Imaging System with Manual Evaluation 10/19/2022 15:18 EDT [facility] Specimen Adequacy Unsatisfactory for evaluation-Insuf ficient number of squamous epithelial cells. Specimen processed and examined but preparation compromised by lubricant or other vaginal contaminant. 10/19/2022 15:18 EDT [facility] General Categorization Unsatisfactory 10/19/2022 15:18 T [facility] Educational Comments Unsatisfactory - Specimen processed and examined, but unsatisfactory for evaluation of epithelial abnormality. Recommend repeat age-based screening after 2-4 months per ASCCP Guidelines which may be found at www.asccp.org. HPV testing will not be performed due to the potential for false negative results. 10/19/2022 15:18 EDT [facility] Attestation . 10/19/2022 15:18 T [facility] at 1518 Clinical History See below 10/20/19 23 15:18 T [facility] Performing Lab [facility] 10/19/2022 15:18 T [facility] Scanned Images 10/19/2022 15:18 T [facility] Pap Test CERVIX UTERI STRUCTURE / Unknown 10/11/2022 13:45 EDT 10/13/2022 12:32 EDT Yumiko Tavarez MD PATHOLOGY ORDERABLES [facility] [address] [place] [address] documented in this encounter Visit Diagnoses Diagnosis Encounter for gynecological examination (general) (routine) without abnormal findings Encounter for general adult medical examination without abnormal findings Unspecified general medical examination documented in this encounter Care Teams Planer Mill Grader Relationship Specialty Start Date End Date Yumiko Tavarez MD [address] [place] [phone] PCP - General 12/29/19 documented as of this encounter
--- OUTSIDE RECORDS SUMMARY | 2023-10-01 21:27 | XMS_ITS | Encounter Summary ---
Author Organization [facility] Address [address] [place] [address] Care Team Providers Care Pipelines Supervisor Name Role Phone Yumiko Tavarez MD Primary Care Provider [phone] Encounter Details Date Type Department Care Team [...] Info) Description 02/13/2024 13:00 EST Office Visit [facility] Neurology - S [place] 1 [place], [place] [address] Alta Walter MD 1 [facility], Level 2 [place] [address] documented as of this encounter Visit Diagnoses Not on filedocumented in this encounter Care Teams Pipelines Supervisor Relationship Specialty Start Date End Date Yumiko Tavarez MD [address] [place] [phone] PCP - General 12/29/19 documented as of this encounter
--- OUTSIDE RECORDS SUMMARY | 2023-10-01 21:27 | XMS_ITS | Encounter Summary ---
Author Organization [facility] Address [address] [place] [address] Care Team Providers Care University Intern Name Role Phone Yumiko Tavarez MD Primary Care Provider [phone] Reason for Visit * Reason Onset Date Comments Appointment Related 08/20/2020 Encounter Details Date Type Department Care Team (Late st Contact Info) Description 08/20/2020 Telephone [facility] Neurology - S [address] [phone] Alta Walter MD [address] [place] [address] Level 2 [place] [phone] Appointment Related Social History Tobacco Use Types [...] Info) Description 02/13/2024 13:00 EST Office Visit [facility] Neurology - S [place] 1 [place] [address] Alta Walter MD [address] [place] [address], Level [address] [place] [address] documented as of this encounter Visit Diagnoses Not on filedocumented in this encounter Care Teams University Intern Relationship Specialty Start Date End Date Yumiko Tavarez MD [address] [place] [address] PCP - General 12/29/19 documented as of this encounter
--- OUTSIDE RECORDS SUMMARY | 2023-10-01 21:27 | XMS_ITS | Encounter Summary ---
Author Organization [facility] Address [address] [place] [address] Care Team Providers Care Tree And Shrub Technician Name Role Phone Yumiko Tavarez MD Primary Care Provider [phone] Reason for Visit * Reason Comments Other Encounter Details Date Type Department Care Team (Late st Contact Info) Description 09/03/2020 Refill [facility] Neurology - S [address] [phone] Alta Walter MD [address] [place] [phone] Other Social History Tobacco Use Types Packs/Day [...] Info) Description 02/13/2024 13:00 EST Office Visit [facility] Neurology S [address] [phone] Alta Walter MD [address] [place] [phone] documented as of this encounter Visit Diagnoses Not on filedocumented in this encounter Care Teams Tree And Shrub Technician Relationship Specialty Start Date End Date Yumiko Tavarez MD [address] [place] [address] PCP - General 12/29/19 documented as of this encounter
--- OUTSIDE RECORDS SUMMARY | 2023-10-01 21:27 | XMS_ITS | Encounter Summary ---
Author Organization [facility] Address [address] [place] [address] Care Team Providers Care Powderman Name Role Phone Yumiko Tavarez MD Primary Care Provider [phone] Reason for Visit * Reason Onset Date Comments Other 05/21/2020 Encounter Details Date Type Department Care Team (Late st Contact Info) Description 05/21/2020 Telephone [facility] Neurology - S [address] [phone] Alta Walter MD [address] [place] [address] Level 2 [place] [address] Other Social History Tobacco Use [...] Info) Description 02/13/2024 13:00 EST Office Visit [facility] Neurology - S [address] [address] Alta Walter MD 1 [facility], Level [address] [place] [address] documented as of this encounter Visit Diagnoses Not on filedocumented in this encounter Care Teams Powderman Relationship Specialty Start Date End Date Yumiko Tavarez MD [address] [place] [address] PCP - General 12/29/19 documented as of this encounter
--- OUTSIDE RECORDS SUMMARY | 2023-10-01 21:28 | XMS_ITS | Encounter Summary ---
Author Organization [facility] Address [address] [place] [address] Care Team Providers Care Kindergartner Name Role Phone Yumiko Tavarez MD Primary Care Provider Reason for Visit * Reason Onset Date Comments Appointment Related 04/06/2020 Encounter Details Date Type Department Care Team (Late st Contact Info) Description 04/06/2020 Telephone [facility] Neurology - S [address] [phone] Alta Walter MD [address] [place] [address] Level [address] [place] [phone] Appointment Related Social History Tobacco Use Types [...] FUR/zoom Meeting ID: [id number] Password: [id number] documented in this encounter Plan of Treatment Upcoming Encounters Date Type Department Care Team (Late st Contact Info) Description 02/13/2024 13:00 EST Office Visit [facility] Neurology - S [address] [address]076[address] Alta Walter MD [address] [place] [address] Level [address] [place] [address] documented as of this encounter Visit Diagnoses Not on filedocumented in this encounter Care Teams Kindergartner Relationship Specialty Start Date End Date Yumiko Tavarez MD [address] [place] [address] PCP - General 12/29/19 documented as of this encounter
--- OUTSIDE RECORDS SUMMARY | 2023-10-01 21:28 | XMS_ITS | Encounter Summary ---
Author Organization [facility] [place] [address] Care Team Providers Care Web Application Tester Name Role Phone Yumiko Tavarez MD Primary Care Provider [phone] Encounter Details Date Type Department Care Team (Late st Contact Info) Description 12/07/2022 Telephone Neurology at [address] [phone] Razia Mims MD [facility] [place] [address] Social History Tobacco Use Types Packs/Day Years [...] I called Miguelina at her mobile number [phone]. Spoke with patient. Patient states her IRMA scan at in 2017 showed Parkinson's and her IRMA scan at [facility] in 2019 showed no Parkinson's. Pt looking forexplanation. Pt encouraged to speak with her neurologist at [facility] who did not have an explanation. Ptstated she had to go as she had to get on a zoom call with her [facility] neurologist. Pt stated she did not require follow-up. * Telephone Encounter - Noris Amin RN - 12/07/2022 10:27 AM EDT Copied from [facility] #[id number]. Topic: Specialty Dept CRMs - Test Results [...] to discuss. Where Was This Test Performed: [facility] documented in this encounter Plan of Treatment Not on file documented as of this encounter Visit Diagnoses Not on filedocumented in this encounter Care Teams Web Application Tester Relationship Specialty Start Date End Date Yumiko Tavarez MD [address] [place] [address] PCP - General Family Medicine 07/07/16 documented as of this encounter
--- OUTSIDE RECORDS SUMMARY | 2023-10-01 21:28 | XMS_ITS | Encounter Summary ---
Author Organization [facility] Address [address] [place] [address] Care Team Providers Care Roentgenology Teacher Name Role Phone Yumiko Tavarez MD Primary Care Provider [phone] Encounter Details Date Type Department Care Team (Late st Contact Info) Description 04/07/2020 Orders Only [facility] Radiology - [address] [phone] Sarkis Hearn MD [address] [place] [address] 1 [place] [phone] Social History Tobacco Use Types Packs/Day Years [...] 13:00 EST Office Visit [facility] Neurology - [place] [address] [place] [address] [id number] Alta Walter MD [address] [place] [address] 2 [place] [phone] documented as of this encounter Visit Diagnoses Not on filedocumented in this encounter Care Teams Roentgenology Teacher Relationship Specialty Start Date End Date Yumiko Tavarez MD [address] [place] [phone] PCP - General 12/29/19 documented as of this encounter
--- OUTSIDE RECORDS SUMMARY | 2023-10-01 21:28 | XMS_ITS | Encounter Summary ---
[place] [address] Care Team Providers Care Milk Route Supervisor Name Role Phone Yumiko Tavarez MD Primary Care Provider [phone] Reason for Referral * Diagnostic Test (Routine) - New Request Specialty Diagnoses / Procedures Referred By Warren dennis Referred To Contact Diagnoses Stage 3a chronic kidney disease Procedures Duplex Study Renal Arteries, Bilat Herbie Grimes APRN [facility] [place] [address] [facility] Vascular Lab [address] [place] [phone] Referral ID Status Reason Start Date Expiration Date Visits Requested Visits Authorized [id number] New Request Specialty Service Requested 3 01/12/2024 1 1 Encounter Details Date Type Department Care Team (Latest Contact Info) Description 01/02/2023 2:30 PM EDT Office Visit [place]ph[place] [address] Herbie Grimes APRN [facility] [place] [address] Stage 3a chronic kidney disease; [...] from the original note were not included. [facility] NEPHROLOGY/HYPERTENSION CLINIC FOLLOW-UP NOTE [id number] ID: 57 y.o.year-old female for follow up [...] in the evening naloxone (Narcan) 4 mg/actuation [place], Non-Aerosol 1 spray by Nasal route as [...] She mentioned being followed by Urrology at [facility] for this complaint. She further dneies [...] cm (4' 11) General: Arrived ambulant in [facility], Cooperative with exam. HEENT: Sclera white, [...] Negative mcL Appearance UA Clear Clear Spec [place] UA 1.016 1.005 - 1.030 Color UA [...] Ultrasound dated 01/02 PATIENT INFO: ID #: [id number] : [birth year] (57 yrs)(F) Name: CYDNEY Fuentes Visit Date: 01/02/2023 02:02 pm [place] PERFORMED BY: Attending: Rosalinda Gonzalez MD Performed By: Jany Avila RDMS Referred By: WILBERT CHAVIS Location: [place] SERVICE(S) PROVIDED: URETRO - Retroperitoneal Complete - [id number] INDICATIONS: 57 y.o. female CKD3, r/o anatomic [...] stream. Endorses being followed by Urology at [facility] and being seen recently. We do not have records of this visit. Will attempt to reach out to the [facility] for the records Renal [...] and coordination of care. Herbie Grimes APRN [facility] [address] [facility] [address] 2nd floor, Electronic Engraver [address] [place] [address] CC: Yumiko Tavarez MD @PCPADD@ documented in this encounter Miscellaneous Notes * Addendum Note - Herbie Grimes APRN - 01/02/2023 2:30 PM EDT Addended by: HERBIE GRIMES on: 01/12/2023 02:28 PM Modules accepted: Orders documented in this encounter Plan of Treatment Not on file documented as of this encounter Results * Protein/Creatinine Ratio, urine (01/02/2023 1:26 PM EDT) U Creatinine 152 mg/dL [facility] U Protein Ran 7 0 - 12 mg/dL [facility] Prot/Cre Ratio <0.1 ratio [facility] Urine 01/02/2023 1:26 PM EDT 01/02/2023 1:38 PM EDT Narrative Resulting Agency Comment Spec In Lab Herbie Grimes APRN URINE ORD ERABLES [facility] [address] [place] [id number] * U Albumin/Cre Ratio (01/02/2023 1:26 PM EDT) Alb/Cr Ratio, Random 3 0 - 29 mcg/mg Cr [facility] Comment: Reference Ranges: <30 [...] 362 U Albumin Conc, Random 3.9 mg/L [facility] U Creatinine 152 mg/dL [facility] Urine 01/02/2023 1:26 PM EDT 01/02/2023 1:38 PM EDT Narrative Resulting Agency Comment Spec In Lab Herbie Grimes VICE PRESIDENT CLIENT SERVICES URINE ORD ERABLES [facility] [place] [address] * (ABNORMAL) _Urinalysis with microscopic (01/02/2023 1:26 PM EDT) Glucose UA Negative Negative mg/dL [facility] Protein UA Negative Negative mg/dL [facility] Bilirubin UA Negative Negative mg/dL [facility] Comment: Clinical correlation required for positive Urine Bilirubin results as false positive may occur with some drugs and drug related products. If a false positive is suspected a serum total bilirubin should be considered if clinically indicated. Urobilinogen UA Normal Normal mg/dL [facility] pH UA 5.5 5.0 - 8.0 [facility] Blood UA Moderate(A) Negative mg/dL [facility] Ketones UA Negative Negative mg/dL [facility] Nitrite UA Negative Negative [facility] Leukocytes UA Negative Negative [facility] Appearance UA Clear Clear [facility] Spec [place] UA 1.016 1.005 - 1.030 [facility] Color UA Yellow Yellow [facility] RBC UA 3 0 - 4 /HPF [facility] WBC UA 1 0 - 5 /HPF [facility] Bacteria UA Occasional( A) None /HPF [facility] Squam Epith UA 4 <=4 /HPF [facility] Hyaline Cast UA 5(H) 0 - 2 /LPF MAR [facility] Urine 01/02/2023 1:26 PM EDT 01/02/2023 1:38 PM EDT Narrative Resulting Agency Comment Spec In Lab Herbie Leach [place]-Dot VICE PRESIDENT CLIENT SERVICES URINE ORD ERABLES Performing Organization Address City/[facility] Co de Phone Number [facility] [place] [address] * Phosphorus (01/02/2023 1:18 PM EDT) Phosphorus 3.8 2.5 - 4.5 mg/dL [facility] Blood 01/02/2023 1:18 PM EDT 01/02/2023 1:26 PM EDT Narrative Resulting Agency Comment Spec In Lab Herbie Leach WaldronRoxDot LERNER CHEMISTRY ORDERABLES Performing Organization Address [facility] Co de Phone Number [facility] [place] [address] * (ABNORMAL) PTH (01/02/2023 1:18 PM EDT) PTH 118(H) 15 - 65 pg/mL [facility] Blood 01/02/2023 1:18 PM EDT 01/02/2023 1:26 PM EDT Narrative Resulting Agency Comment Spec In Lab Herbie Leach [place]-Dot LERNER CHEMISTRY ORDERABLES Performing Organization Address [facility] Co de Phone Number [facility] [place] [address] * Vitamin D, 25-Hydroxy (01/02/2023 1:18 PM EDT) 25-OH Vit D Total 56 21 - 100 ng/mL [facility] 25-OH Vit D Interp Sufficient [facility] Blood 01/02/2023 1:18 PM EDT 01/02/2023 1:26 PM EDT Narrative Resulting Agency Comment Spec In Lab Herbie Leach Cornelio LERNER CHEMISTRY ORDERABLES [facility] [place] [address] * (ABNORMAL) Basic Metabolic Panel (non-fasting) (01/02/2023 1:18 PM EDT) Glucose Lvl 95 65 - 199 mg/dL [facility] Comment:Diabetes: >=200 mg/d L plus symptoms BUN 13 8 - 18 mg/dL [facility] Creatinine 1.27(H) 0.70 - 1.20 mg/dL [facility] Sodium 141 135 - 145 mmol/L [facility] Potassium 4.4 3.5 - 5.0 mmol/L [facility] Comment: Please note: ??Patients with WBC >100,000 may have falsely elevated Potassium levels. ??For accurate Potassium quantification in these patients send serum separator tube (gold top) for subsequent determinations. ??Contact the Clinical Chemistry Laboratory if there are any questions. Chloride 104 98 - 107 mmol/L [facility] CO2 27 22 - 31 mmol/L [facility] Anion Gap 10 5 - 15 mmol/L [facility] Calcium 9.2 8.5 - 10.5 mg/dL [facility] Estimated GFR 49(L) >=60 mL/min/1. 73 m?? [facility] Comment: This patient's estimated [...] Agency Comment Spec In Lab Herbie Leach SaYoselinaraj VICE PRESIDENT CLIENT SERVICES CHEMISTRY ORDERABLES Performing Organization Address City/[facility]/ZIP Co de Phone Number [facility] [place] [address] * Albumin Level (01/02/2023 1:18 PM EDT) Albumin 4.0 3.2 - 5.2 g/dL [facility] Blood 01/02/2023 1:18 PM EDT 01/02/2023 1:26 PM EDT Narrative Resulting Agency Comment Spec In Lab Herbie Grimes APRN CHEMISTRY ORDERABLES Performing Organization Address City/[facility]/ZIP Co de Phone Number [facility] [place] [address] documented in this encounter Visit Diagnoses Diagnosis Stage 3a chronic kidney disease PTSD (post-traumatic stress disorder) Posttraumatic stress disorder Hyperparathyroidism Hyperparathyroidism, unspecified Anxiety Anxiety state, unspecified documented in this encounter Care Teams Milk Route Supervisor Relationship Specialty Start Date End Date Yumiko Tavarez MD [address] [place] [address] PCP - General Family Medicine 07/07/16 documented as of this encounter
--- OUTSIDE RECORDS SUMMARY | 2023-10-01 21:28 | XMS_ITS | Encounter Summary ---
Author Organization [facility] Address [address] [place] [address] Care Team Providers Care Certified Detention Deputy Name Role Phone Unavailable Primary Care Provider Unavailabl e Encounter Details Date Type Department Care Team (Late st Contact Info) Description 08/03/2008 Orders Only [facility] Laboratory Services - [facility] ([facility]) [address] [place], [place] [id number] Lincoln Holm MD [address] [place] [address] Social History Tobacco Use Types Packs/Day Years [...] 02/13/2024 13:00 EST Office Visit [facility] Neurology - S [address] [phone] Alta Walter MD [address] [place] [address], [address] [place] [phone] documented as of this encounter Procedures Procedure [...] ? ALMAZAN, CYDNEY ? Accession #: ? [id number] ? : ? 1965 (Age: 43) ??F [...] MD PATHOLOGY ORDERABLE S CHAR [facility] [address] [place] [address] documented in this encounter Visit Diagnoses Not on filedocumented in this encounter
--- OUTSIDE RECORDS SUMMARY | 2023-10-01 21:28 | XMS_ITS | Encounter Summary ---
Author Organization [facility] [place] [address] Care Team Providers Care Stock Driver Name Role Phone Yumiko Tavarez MD Primary Care Provider [phone] Reason for Visit * Reason Onset Date Comments Medication Problem 03/04/2020 Encounter Details Date Type Department Care Team (Late st Contact Info) Description 03/04/2020 [place] [address] Razia Mims MD [facility] [place] [address] Medication Problem Social History Tobacco Use Types [...] 03/04/2020 11:22 AM EST Call Center / [place] Message - Medication Issue (Not to be used for refill request or medication prior auth request) Provider patient sees in Clinic: Dr. Mims Caller and relationship (if other than patient-full name): Dick Rothman patient support program Call Back Number: [phone] Ok to leave a message: Reason for call: Medication Issue (if medication issue is a symptom do not use this phrase) Message/information for the nurse: Name of Medication: Rytary 195mg Issue with the medication: Dcik called stating that the fax he received [...] on filedocumented in this encounter Care Teams Stock Driver Relationship Specialty Start Date End Date Yumiko Tavarez MD [address] [place] [address] PCP - General Family Medicine 07/07/16 documented as of this encounter
--- OUTSIDE RECORDS SUMMARY | 2023-10-01 21:28 | XMS_ITS | Encounter Summary ---
[place] [address] Care Team Providers Care Upholsterer Helper Name Role Phone Yumiko Tavarez MD Primary Care Provider [phone] Encounter Details Date Type Department Care Team [...] on filedocumented in this encounter Care Teams Upholsterer Helper Relationship Specialty Start Date End Date Yumiko Tavarez MD [address] [place] [address] PCP - General Family Medicine 07/07/16 documented as of this encounter
--- OUTSIDE RECORDS SUMMARY | 2023-10-01 21:28 | XMS_ITS | Encounter Summary ---
Author Organization [facility] Address [facility] [place] [address] Care Team Providers Care Forest Fire Warden Name Role Phone Yumiko Tavarez MD Primary Care Provider [phone] Reason for Visit * Consultation (Routine) - Closed Specialty Diagnoses / Procedures Referred By Contac t Referred To Contact Nephrology Diagnoses Stage 3 chronic kidney disease, unspecified whether stage 3a or 3b CKD Yumiko Tavarez MD [address] [place] [address] [facility] [address] [place] [phone] Referral ID Status Reason Start Date Expiration Date V isits Requested Visits Authorized [id number] Closed Consult, Test & Treat PCP Updated and/or Approved 03/13/2022 09/09/2022 1 1 Encounter Details Date Type Department Care Team (Late st Contact Info) Description 08/14/2022 1:00 PM EDT Office Visit [place] [address] Neeraj Vasquez MD [facility] [place] [address] Stage 3a chronic kidney disease; [...] Vasquez MD - 08/14/2022 1:00 PM EDT [facility] NEPHROLOGY AND HYPERTENSION CLINIC 08/14/22 PRIMARY CARE [...] in the evening naloxone (Narcan) 4 mg/actuation [place], Non-Aerosol 1 spray by Nasal route as [...] -70 pg/ml Calcium :.Phosphorus within normal limit 47-[id number] D adequate : PTH : 73 * [...] lab including PTH Renal sonogram Neeraj Vasquez. [facility] [place] [address] * Efren Suh MD - 08/14/2022 1:00 [...] PM EDT) Glucose UA Negative Negative mg/dL [facility] Protein UA Negative Negative mg/dL [facility] Bilirubin UA Negative Negative mg/dL [facility] Comment: Clinical correlation required for positive Urine Bilirubin results as false positive may occur with some drugs and drug related products. If a false positive is suspected a serum total bilirubin should be considered if clinically indicated. Urobilinogen UA Normal Normal mg/dL Stephanie [facility] pH UA 6.0 5.0 - 8.0 [facility] Blood UA Small(A) Negative mg/dL [facility] Ketones UA Negative Negative mg/dL [facility] Nitrite UA Negative Negative [facility] Leukocytes UA Negative Negative mcL MAR Y [facility] Appearance UA Clear Clear [facility] Spec [place] UA 1.010 1.005 - 1.030 [facility] Color UA Yellow Yellow [facility] Urine 08/14/2022 12:2 4 PM EDT 08/14/2022 12:33 PM EDT Narrative Resulting Agency Comment Spec In Lab Efren Suh MD URINE ORDERABLES [facility] [place] [address] * Vitamin D, 25-Hydroxy (08/14/2022 11:52 AM EDT) 25-OH Vit D Total 40 21 - 100 ng/mL [facility] 25-OH Vit D Interp Sufficient [facility] Blood 08/14/2022 11:5 2 AM EDT 08/14/2022 11:59 AM EDT Narrative Resulting Agency Comment Spec In Lab Efren Suh MD CHEMISTRY ORDERABLES [facility] [place] [address] * Phosphorus (08/14/2022 11:52 AM EDT) Phosphorus 4.2 2.5 - 4.5 mg/dL [facility] Blood 08/14/2022 11:5 2 AM EDT 08/14/2022 11:59 AM EDT Narrative Resulting Agency Comment Spec In Lab Efren Suh MD CHEMISTRY ORDERABLES Performing Organization Address [facility] Co de Phone Number [facility] [place] [address] * Calcium (08/14/2022 11:52 AM EDT) Calcium 9.6 8.5 - 10.5 mg/dL [facility] Blood 08/14/2022 11:5 2 AM EDT 08/14/2022 11:59 AM EDT Narrative Resulting Agency Comment Spec In Lab Efren Suh MD CHEMISTRY ORDERABLES Performing Organization Address [facility] Co de Phone Number [facility] [place] [address] * (ABNORMAL) PTH (08/14/2022 11:52 AM EDT) PTH 76(H) 15 - 65 pg/mL [facility] Blood 08/14/2022 11:5 2 AM EDT 08/14/2022 11:59 AM EDT Narrative Resulting Agency Comment Spec In Lab Efren Suh MD CHEMISTRY ORDERABLES Performing Organization Address City/[facility] Co de Phone Number [facility] [place] [address] * (ABNORMAL) Basic Metabolic Panel (non-fasting) (08/14/2022 11:52 AM EDT) Glucose Lvl 82 65 - 199 mg/dL [facility] Comment:Diabetes: >=200 mg/d L plus symptoms BUN 13 8 - 18 mg/dL [facility] Creatinine 1.14 0.70 - 1.20 mg/dL [facility] Sodium 141 135 - 145 mmol/L [facility] Potassium 4.5 3.5 - 5.0 mmol/L [facility] Comment: Please note: ??Patients with WBC >100,000 may have falsely elevated Potassium levels. ??For accurate Potassium quantification in these patients send serum separator tube (gold top) for subsequent determinations. ??Contact the Clinical Chemistry Laboratory if there are any questions. Chloride 103 98 - 107 mmol/L [facility] CO2 28 22 - 31 mmol/L [facility] Anion Gap 10 5 - 15 mmol/L [facility] Calcium 9.6 8.5 - 10.5 mg/dL [facility] Estimated GFR 55(L) >=60 mL/min/1. 73 m?? [facility] Comment: This patient's [...] In Lab Efren Suh MD CHEMISTRY ORDERABLES [facility] [place] [address] documented in this encounter Visit Diagnoses Diagnosis Stage 3a chronic kidney disease Hyperparathyroidism Hyperparathyroidism, unspecified documented in this encounter Care Teams Forest Fire Warden Relationship Specialty Start Date End Date Yumiko Tavarez MD [address] [place] [address] PCP - General Family Medicine 07/07/16 documented as of this encounter
--- OUTSIDE RECORDS SUMMARY | 2023-10-01 21:28 | XMS_ITS | Encounter Summary ---
Author Organization [facility] Address [address] [place] [address] Care Team Providers Care House Shorer Name Role Phone Yumiko Tavarez MD Primary Care Provider [phone] Reason for Visit * Radiology Services (Routine) - Receiving Office to Obtain Authorization Specialty Diagnoses / Procedures Referred By Contac t Referred To Contact Nuclear Medicine Diagnoses Parkinsonism, unspecified Parkinsonism type (HCC-CMS) Procedures NM DATSCAN WITH SPECT/CT NM DATSCAN SPECT Alta Walter MD [address] [place] [address] 2 [place] [address] Referral ID Status Reason Start Date Expiration Date Visits Requested Visits Authorized [id number] Receiving Office to Obtain Authorization 04/07/2020 1 1 Encounter Details Date Type Department Care Team (Latest Contact Info) Description 05/20/2020 11:08 EDT - 05/20/2020 23:59 EDT Hospital Encounter [facility] Radiology Nuclear Medicine and PET - [address] [id number] Discharge Disposition: Home or Self Care Social [...] Office Visit [facility] Neurology - [address] [address] Alta Walter MD [address] [place] [address], Level [address] [place] [address] documented as of this encounter Procedures Procedure Name Priority Date/Time Associated Diagnosis Comments NM DATSCAN WITH SPECT/CT Routine 05/20/2020 15:56 EDT Parkinsonism, unspecified Parkinsonism type ([facility]-CMS) documented in this encounter Results * NM [...] on filedocumented in this encounter Care Teams House Shorer Relationship Specialty Start Date End Date Yumiko Tavarez MD [address] [place] [phone] PCP - General 12/29/19 documented as of this encounter
--- OUTSIDE RECORDS SUMMARY | 2023-10-01 21:28 | XMS_ITS | Encounter Summary ---
Author Organization [facility] Address [address] [place] [address] Care Team Providers Care Research Scholar Name Role Phone Unknown, Provider Primary Care Provider [phone] Encounter Details Date Type Department Care Team (Late st Contact Info) Description 03/08/2016 Results Only [facility]- PRISM [phone] Salvatore Rosario MD [address] [place] [address] [address] [place], [place] [id number] Social History Tobacco Use Types Packs/Day Years Used Date Smoking Tobacco: Never Assessed Sex and Gender Information Value Date Recorded Sex Assigned at Not on file Gender Identity Female 12/29/2019 9:52 EDT Sexual Orientation Not on file documented as of this encounter Plan of Treatment Upcoming Encounters Date Type Department Care Team (Late st Contact Info) Description 02/13/2024 13:00 EST Office Visit [facility] Neurology - [address] [id number] Alta Walter MD [address] [place] [address] [address] [place] [address] documented as of this encounter Procedures Procedure [...] 1.5 cm in greatest dimension. ? Two retail service representative sections and the inked en face cystic duct margin are submitted in 1. Dr. Corona 03/09/2016 6:00 PM End of Report [facility] 03/08/2016 20:4 5 EST 03/08/2016 20:45 EST Salvatore Rosario MD PATHOLOGY ORDERElaine TONG Performing Organization Address City/State/[facility] Co de Phone Number [facility] [address] [place] [address] documented in this encounter Visit Diagnoses Not on filedocumented in this encounter Care Teams Research Scholar Relationship Specialty Start Date End Date Unknown, Provider, PCP - General 08/05/08 12/28/19 documented as of this encounter
--- OUTSIDE RECORDS SUMMARY | 2023-10-01 21:28 | XMS_ITS | Encounter Summary ---
Author Organization [facility] Address [address] [place] [address] Care Team Providers Care Plug Overwrap Machine Tender Name Role Phone Unknown, Provider Primary Care Provider [phone] Yumiko Tavarez MD Primary Care Provider [phone] Encounter Details Date Type Department Care Team (Latest Contact Info) Description 01/20/2019 Lab Requisition [facility] Pathology & Laboratory Medicine - [facility] [address] [place] [address] Yumiko Tavarez MD [address] [place] [phone] Encounter for general adult medical examination without [...] [facility] Neurology - [address] [place] [address] [place], [place] [id number] Alta Walter MD [address] [place] [address], [address] 2 [place] [phone] documented as of this encounter Procedures Procedure [...] types, PCR Positive( A) Negative 01/22/2019 15:05 [facility] Comment:E6 OR E7 mRNA from o ne or more types of HPV types 16,18,31,33,35,39,45,51,52,56,58,59,66, and 68 is detected by machine fancy stitcher mediated amplification. High and intermediate risk HPV types are associated with most squamous intraepithelial lesions and cervical cancers. Papanicolaou smear specimen (specimen) CERVIX UTERI STRUCTURE / Unknown 01/16/2019 14:00 EST 01/21/2019 9:36 EST Yumiko Tavarez MD MICROBIOLOGY - GENER AL ORDERABLES [facility] [address] [place] [address] * PAP TEST (01/16/2019 14:00 EST) Specimens A. Cervix and/or Endocervix, , ThinPrep Imaging System with Manual Evaluation 01/22/2019 15:05 [facility] Specimen Adequacy Satisfactory for Evaluation - transformation zone component present 01/22/2019 15:05 [facility] General Categorization Negative for intraepithelial lesion or malignancy 01/22/2019 15:05 [facility] Attestation . 01/22/2019 15:05 [facility] at 1505 Clinical History NONE 01/23/20 19 15:05 EST [facility] HPV The result for the Human Papillomavirus (HPV) Detection-High Risk Types is Positive . E6 OR E7 mRNA from one or more types of HPV types 16,18,31,33,35,39 ,45,51,52,56,58,5 9,66, and 68 is detected by machine fancy stitcher mediated amplification. High and intermediate risk HPV types are associated with most squamous intraepithelial lesions and cervical cancers. Testing was performed on specimen [id number] and was resulted on 01/22/2019 1503 EST by ANTHONY, LAB INSTRUMENT RESULTS IN 01/22/2019 15:05 EST [facility] Scanned Images 01/22/2019 15:05 [facility] Papanicolaou smear specimen (specimen) CERVIX UTERI STRUCTURE / Unknown 01/16/2019 14:00 EST 01/20/2019 9:08 EST Yumiko Tavarez MD PATHOLOGY ORDERABLES Performing Organization Address City/State/[facility] Co de Phone Number [facility] [address] [place] [address] documented in this encounter Visit Diagnoses Diagnosis Encounter for general adult medical examination without abnormal findings Unspecified general medical examination Encounter for gynecological examination (general) (routine) without abnormal findings Encounter for screening for malignant neoplasm of cervix Screening for malignant neoplasm of the cervix documented in this encounter Care Teams Plug Overwrap Machine Tender Relationship Specialty Start Date End Date Unknown, Provider, PCP - General 08/05/08 12/28/19 Yumiko Tavarez MD [address] [place] [address] PCP - General 12/29/19 documented as of this encounter
--- OUTSIDE RECORDS SUMMARY | 2023-10-01 21:28 | XMS_ITS | Encounter Summary ---
[place] [address] Care Team Providers Care Project Safety Manager Name Role Phone Yumiko Tavarez MD Primary Care Provider [phone] Encounter Details Date Type Department Care Team (Latest Contact Info) Description 01/02/2023 1:00 PM EDT Laboratory Appointment Lab [address] [place] [phone] Chronic kidney disease, unspecified CKD stage Social [...] on file documented as of this encounter Procedures Procedure [...] 1:26 PM EDT) U Creatinine 152 mg/dL [facility] U Protein Ran 7 0 - 12 mg/dL [facility] Prot/Cre Ratio <0.1 ratio [facility] Urine 01/02/2023 1:26 PM EDT 01/02/2023 1:38 PM EDT Narrative Resulting Agency Comment Spec In Lab Nenita Grimes APRN URINE ORD ERABLES [facility] [place] [address] * (ABNORMAL) _Urinalysis with microscopic (01/02/2023 1:26 PM EDT) Glucose UA Negative Negative mg/dL [facility] Protein UA Negative Negative mg/dL [facility] Bilirubin UA Negative Negative mg/dL [facility] Comment: Clinical correlation required for positive Urine Bilirubin results as false positive may occur with some drugs and drug related products. If a false positive is suspected a serum total bilirubin should be considered if clinically indicated. Urobilinogen UA Normal Normal mg/dL [facility] pH UA 5.5 5.0 - 8.0 [facility] Blood UA Moderate(A) Negative mg/dL [facility] Ketones UA Negative Negative mg/dL [facility] Nitrite UA Negative Negative [facility] Leukocytes UA Negative Negative mcL [facility] Appearance UA Clear Clear [facility] Spec [place] UA 1.016 1.005 - 1.030 [facility] Color UA Yellow Yellow [facility] RBC UA 3 0 - 4 /HPF [facility] WBC UA 1 0 - 5 /HPF [facility] Bacteria UA Occasional( A) None /HPF [facility] Squam Epith UA 4 <=4 /HPF [facility] Hyaline Cast UA 5(H) 0 - 2 /LPF [facility] Urine 01/02/2023 1:26 PM EDT 01/02/2023 1:38 PM EDT Narrative Resulting Agency Comment Spec In Lab Nenita Grimes APRN URINE ORD ERABLES [facility] [place] [address] * U Albumin/Cre Ratio (01/02/2023 1:26 PM EDT) Alb/Cr Ratio, Random 3 0 - 29 mcg/mg Cr [facility] Comment: Reference Ranges: <30 mcg/mg: [...] 362 U Albumin Conc, Random 3.9 mg/L [facility] U Creatinine 152 mg/dL [facility] Urine 01/02/2023 1:26 PM EDT 01/02/2023 1:38 PM EDT Narrative Resulting Agency Comment Spec In Lab Nenita Grimes SEQUINS WINDER URINE ORD ERABLES [facility] [place] [address] * Differential, Automated (01/02/2023 1:18 PM EDT) Neutrophils % 56.6 % [facility] Neutr Abs (ANC) 3.39 1.70 - 6.10 x10(3)/[facility] Lymphocytes % 35.5 % [facility] Lymphocytes Abs 2.1 0.9 - 3.2 x10(3)/[facility] Monocytes % 6.4 % [facility] Monocyte Abs 0.4 0.3 - 0.9 x10(3)/[facility] Eosinophils % 0.8 % [facility] Eosinophils Abs 0.0 0.0 - 0.4 x10(3)/[facility] Basophils % 0.5 % [facility] Basophils Abs 0.0 0.0 - 0.1 x10(3)/[facility] Immature Gran % 0.20 % [facility] Comment: Immature granulocytes(IG's)percentage and absolute count will include metamyelocytes, myelocytes, and promyelocytes. Blood smears from CBCs yielding IG's will be scanned manually for concordance. If this scan disagrees with the automated IG or if promyelocytes are noted, a manual differential will be performed. [place] Gran Abs 0.01 0.00 - 0.04 x10(3)/[facility] Blood 01/02/2023 1:18 PM EDT 01/02/2023 1:26 PM EDT Narrative Resulting Agency Comment Spec In Lab Nenita Grimes APRN HEMATOLOG Y ORDERABLES Performing Organization Address City/State/[facility] Co de Phone Number [facility] [place] [address] * (ABNORMAL) Hemogram (01/02/2023 1:18 PM EDT) WBC 6.0 4.0 - 9.5 x10(3)/[facility] RBC 3.96(L) 4.00 - 5.21 x10(6)/[facility] Hemoglobin 12.9 11.7 - 15.5 g/dL [facility] Hematocrit 39.0 35.7 - 45.8 % [facility] MCV 98.5(H) 82.6 - 94.4 fL [facility] MCH 32.6(H) 27.1 - 32.0 pg [facility] MCHC 33.1 31.7 - 35.0 g/dL [facility] Platelets 197 145 - 357 x10(3)/[facility] RDWSD 44.0 37.0 - 46.0 [facility] RDWCV 12.2 11.5 - 14.1 % [facility] MPV 11.1 7.6 - 12.9 [facility] nRBC % Auto 0.0 % [facility] nRBC Abs Auto 0.000 0.000 - 0.000 x10(3)/mcL [facility] Blood 01/02/2023 1:18 PM EDT 01/02/2023 1:26 PM EDT Narrative Resulting Agency Comment Spec In Lab Nenita Tamayogregory LERNER HEMATOLOG Y ORDERABLES [facility] [place] [address] * Phosphorus (01/02/2023 1:18 PM EDT) Phosphorus 3.8 2.5 - 4.5 mg/dL [facility] Blood 01/02/2023 1:18 PM EDT 01/02/2023 1:26 PM EDT Narrative Resulting Agency Comment Spec In Lab Nenita Tamayoaraj YANN CHEMISTRY ORDERABLES Performing Organization Address City/[facility]/ZIP Co de Phone Number [facility] [place] [address] * (ABNORMAL) PTH (01/02/2023 1:18 PM EDT) PTH 118(H) 15 - 65 pg/mL [facility] Blood 01/02/2023 1:18 PM EDT 01/02/2023 1:26 PM EDT Narrative Resulting Agency Comment Spec In Lab Nenita Tamayoaraj YANN CHEMISTRY ORDERABLES Performing Organization Address City/[facility]/ZIP Co de Phone Number [facility] [place] [address] * Vitamin D, 25-Hydroxy (01/02/2023 1:18 PM EDT) 25-OH Vit D Total 56 21 - 100 ng/mL [facility] 25-OH Vit D Interp Sufficient [facility] Blood 01/02/2023 1:18 PM EDT 01/02/2023 1:26 PM EDT Narrative Resulting Agency Comment Spec In Lab Nenita Grimes APRN CHEMISTRY ORDERABLES [facility] [place] [address] * (ABNORMAL) Basic Metabolic Panel (non-fasting) (01/02/2023 1:18 PM EDT) Glucose Lvl 95 65 - 199 mg/dL [facility] Comment:Diabetes: >=200 mg/d L plus symptoms BUN 13 8 - 18 mg/dL [facility] Creatinine 1.27(H) 0.70 - 1.20 mg/dL [facility] Sodium 141 135 - 145 mmol/L [facility] Potassium 4.4 3.5 - 5.0 mmol/L [facility] Comment: Please note: ??Patients with WBC >100,000 may have falsely elevated Potassium levels. ??For accurate Potassium quantification in these patients send serum separator tube (gold top) for subsequent determinations. ??Contact the Clinical Chemistry Laboratory if there are any questions. Chloride 104 98 - 107 mmol/L [facility] CO2 27 22 - 31 mmol/L [facility] Anion Gap 10 5 - 15 mmol/L [facility] Calcium 9.2 8.5 - 10.5 mg/dL [facility] Estimated GFR 49(L) >=60 mL/min/1. 73 m?? [facility] [...] Cornelio LERNER CHEMISTRY ORDERABLES Performing Organization Address City/[facility]/ZIP Co de Phone Number [facility] [place] [address] * Albumin Level (01/02/2023 1:18 PM EDT) Albumin 4.0 3.2 - 5.2 g/dL [facility] Blood 01/02/2023 1:18 PM EDT 01/02/2023 1:26 PM EDT Narrative Resulting Agency Comment Spec In Lab Nenita Leach Cornelio LERNER CHEMISTRY ORDERABLES Performing Organization Address City/[facility] Co de Phone Number [facility] [place] [address] documented in this encounter Visit Diagnoses Diagnosis Chronic kidney disease, unspecified CKD stage documented in this encounter Care Teams Project Safety Manager Relationship Specialty Start Date End Date Yumiko Tavarez MD [address] [place] [id number] PCP - General Family Medicine 07/07/16 documented as of this encounter
--- OUTSIDE RECORDS SUMMARY | 2023-10-01 21:28 | XMS_ITS | Encounter Summary ---
Author Organization [facility] Address [address] [place] [address] Care Team Providers Care Snowboard Designer Name Role Phone Unknown, Provider Primary Care Provider Yumiko Tavarez MD Primary Care Provider [phone] Reason for Visit * Reason Onset Date Comments Appointment Related 11/18/2018 Encounter Details Date Type Department Care Team ([facility] st Contact Info) Description 11/18/[address] [facility] Neurology [address] [address] Unknown, Provider, Appointment Related Social History Tobacco [...] [facility] Neurology - [address] [place] [address] [place] [address] Alta Walter MD 1 [facility], Level 2 [place] [address] documented as of this encounter Visit Diagnoses Not on filedocumented in this encounter Care Teams Snowboard Designer Relationship Specialty Start Date End Date Unknown, Provider, PCP - General 08/05/08 12/28/19 Yumiko Tavarez MD [address] [place] [address] PCP - General 12/29/19 documented as of this encounter
--- OUTSIDE RECORDS SUMMARY | 2023-10-01 21:28 | XMS_ITS | Encounter Summary ---
Author Organization [facility] Address [address] [place] [address] Care Team Providers Care Clinical Exercise Specialist Name Role Phone Unknown, Provider Primary Care Provider Yumiko Tavarez MD Primary Care Provider [phone] Reason for Visit * Reason Onset Date Comments New Patient Visit 12/18/2019 Encounter Details Date Type Department Care Team (Late st Contact Info) Description 12/18/2019 Telephone [facility] Neurology - [address] [id number] Alta Walter MD [address] [place] [address] [address] [place] [address] New Patient Visit Social History [facility] S [address] [address] Alta Walter MD [address] [place] [address], [address] [place] [phone] documented as of this encounter Visit Diagnoses Not on filedocumented in this encounter Care Teams Clinical Exercise Specialist Relationship Specialty Start Date End Date Unknown, Provider, PCP - General 08/05/08 12/28/19 Yumiko Tavarez MD [address] [place] [address] PCP - General 12/29/19 documented as of this encounter
--- OUTSIDE RECORDS SUMMARY | 2023-10-01 21:28 | XMS_ITS | Encounter Summary ---
Author Organization [facility] Address [address] [place] [address] Care Team Providers Care Custodian Manager Name Role Phone Unknown, Provider Primary Care Provider Yumiko Tavarez MD Primary Care Provider [phone] Reason for Visit * Reason Onset Date Comments Referral Request 06/19/2019 Encounter Details Date Type Department Care Team (Late st Contact Info) Description 06/19/2019 Telephone [facility] Neurology - [address] [address] Unknown, Provider, Referral Request Social History Tobacco [...] Marshall - 06/20/2019 1533 EDT Dillon from [facility] calling to let Johana know that the Pt would like to keep referral with [facility] for second opinion and will resend updated referral in September when patient sees them for appt. * Telephone Encounter - Civil Marlene - 06/20/2019 1140 EDT Dillon calls regarding her phone call from yesterday asking for Johana. I will forward to Johana :) * Telephone Encounter - Johana Govea - 06/19/2019 1559 EDT Calling referring office ([phone]) to inform them of the doctor's opinion [...] ideally served with follow up care with [facility] until we can get her on site I can see the patient with the caveat that the recommendations may be limited documented in this encounter Plan of Treatment Upcoming Encounters Date Type Department Care Team (Late st Contact Info) Description 02/13/2024 13:00 EST Office Visit [facility] Neurology - [address] [place] [address] [place], [place] [address] Alta Walter MD [address] [place] [address] [address] 2 [place] [address] documented as of this encounter Visit Diagnoses Not on filedocumented in this encounter Care Teams Custodian Manager Relationship Specialty Start Date End Date Unknown, Provider, PCP - General 08/05/08 12/28/19 Yumiko Tavarez MD [address] [place] [phone] PCP - General 12/29/19 documented as of this encounter
--- OUTSIDE RECORDS SUMMARY | 2023-10-01 21:28 | XMS_ITS ---
Author Organization [facility] Address [address] [place] [address] Care Team Providers Care Wildlife Protector Name Role Phone Yumiko Tavarez MD Primary Care Provider [phone] Neurology Status:Discharged (Closed) Start date:03/03/2021 Enrollment date:03/03/2021 End date:05/20/2021 Continued Care and Services Coordination
--- OUTSIDE RECORDS SUMMARY | 2023-10-01 21:28 | XMS_ITS | Encounter Summary ---
Author Organization [facility] Address [address] [place] [address] Care Team Providers Care Bleacher [employer] Name Role Phone Unknown, Provider Primary Care Provider [phone] Encounter Details Date Type Department Care Team (Late st Contact Info) Description 01/19/2016 Results Only [facility]- PRISM [phone] Jerri Topete MD [address] [place] [address] [place] [address] Social History Tobacco Use Types Packs/Day Years [...] Office Visit [facility] Neurology - [address] [place] [address] [place], [place] [address] Alta Walter MD [address] [place] [address] Level [address] [place] [phone] documented as of this encounter Procedures Procedure [...] ? CYDNEY ALMAZAN ? Accession #: ? [id number] ? : ? 1965 (Age: 50) ??F [...] types 16,18,31,33,35, 39,45,51,52,56,58, 59,66, and 68 by metal spray operator mediated amplification. Comments Document reviewed and electronically signed by: ? System Interface ? Report date: 01/31/2016 By the signature above, the attending physician certifies that he/she has personally conducted a gross and/or microscopic examination of the described specimens and rendered or confirmed the above diagnosis. End of Report [facility] 01/19/2016 01/20/2016 Jerri Topete MD PATHOLOGY ORDERABLES [facility] [address] [place] [address] documented in this encounter Visit Diagnoses Not on filedocumented in this encounter Care Teams Bleacher [employer] Relationship Specialty Start Date End Date Unknown, ProviderMD PCP - General 08/05/08 12/28/19 documented as of this encounter
--- OUTSIDE RECORDS SUMMARY | 2023-10-01 21:28 | XMS_ITS | Encounter Summary ---
[place] [address] Care Team Providers Care Bridge Painter Name Role Phone Yumiko Tavarez MD Primary Care Provider [phone] Encounter Details Date Type Department Care Team (Latest Contact Info) Description 05/08/2023 3:00 PM EST Laboratory Appointment Lab [address] [place] [id number] Stage 3a chronic kidney disease; Hyperparathyroidism Social [...] PM EST) Glucose UA Negative Negative mg/dL [facility] Protein UA Negative Negative mg/dL [facility] Bilirubin UA Negative Negative mg/dL [facility] Comment: Clinical correlation required for positive Urine Bilirubin results as false positive may occur with some drugs and drug related products. If a false positive is suspected a serum total bilirubin should be considered if clinically indicated. Urobilinogen UA Normal Normal mg/dL [facility] pH UA 5.5 5.0 - 8.0 [facility] Blood UA Small(A) Negative mg/dL [facility] Ketones UA Negative Negative mg/dL [facility] Nitrite UA Negative Negative [facility] Leukocytes UA Negative Negative mcL [facility] Appearance UA Clear Clear [facility] Spec Caret UA 1.016 1.005 - 1.030 [facility] Color UA Yellow Yellow [facility] RBC UA 2 0 - 4 /HPF [facility] WBC UA 1 0 - 5 /HPF [facility] Squam Epith UA 1 <=4 /HPF [facility] Urine 05/08/2023 2:02 PM EST 05/08/2023 2:17 PM EST Narrative Resulting Agency Comment Spec In Lab Nenita Grimes APRN URINE ORD ERABLES Performing Organization Address City/Va Hospital/ZIP Co de Phone Number [facility] [place] [address] * U Albumin/Cre Ratio (05/08/2023 2:02 PM EST) Alb/Cr Ratio, Random Not Calculated 0 - 29 mcg/mg Cr [facility] Comment: Reference Ranges: <30 mcg/mg: [...] 362 U Albumin Conc, Random <3.0 mg/L [facility] U Creatinine 128 mg/dL [facility] Urine 05/08/2023 2:02 PM EST 05/08/2023 2:17 PM EST Narrative Resulting Agency Comment Spec In Lab Nenita Tamayoaraemeka ROBERTN URINE ORD ERABLES Performing Organization Address City/Va Hospital/ZIP Co de Phone Number [facility] [place] [address] * Protein/Creatinine Ratio, urine (05/08/2023 2:02 PM EST) U Creatinine 128 mg/dL [facility] U Protein Ran <6 0 - 12 mg/dL [facility] Prot/Cre Ratio <0.1 ratio [facility] Urine 05/08/2023 2:02 PM EST 05/08/2023 2:17 PM EST Narrative Resulting Agency Comment Spec In Lab Nenita WaldronRoxDot DELIVERY TRUCK DRIVER HEAVY URINE ORD ERABLES [facility] [place] [address] * Differential, Automated (05/08/2023 1:54 PM EST) Pathologist [facility] Neutrophils % 51.6 % [facility] Neutr Abs (ANC) 3.08 1.70 - 6.10 x10(3)/[facility] Lymphocytes % 39.8 % [facility] Lymphocytes Abs 2.4 0.9 - 3.2 x10(3)/[facility] Monocytes % 6.9 % [facility] Monocyte Abs 0.4 0.3 - 0.9 x10(3)/[facility] Eosinophils % 1.2 % [facility] Eosinophils Abs 0.1 0.0 - 0.4 x10(3)/[facility] Basophils % 0.3 % [facility] Basophils Abs 0.0 0.0 - 0.1 x10(3)/[facility] Immature Gran % 0.20 % [facility] Comment: Immature granulocytes(IG's)percentage and absolute count will include metamyelocytes, myelocytes, and promyelocytes. Blood smears from CBCs yielding IG's will be scanned manually for concordance. If this scan disagrees with the automated IG or if promyelocytes are noted, a manual differential will be performed. Kimberly Gran Abs 0.01 0.00 - 0.04 x10(3)/[facility] Blood 05/08/2023 1:54 PM EST 05/08/2023 2:00 PM EST Narrative Resulting Agency Comment Spec In Lab Ligia Lopez APRN HEMATOLOGY ORDERABLE S [facility] [place] [address] * (ABNORMAL) Hemogram (05/08/2023 1:54 PM EST) WBC 6.0 4.0 - 9.5 x10(3)/[facility] RBC 3.94(L) 4.00 - 5.21 x10(6)/[facility] Hemoglobin 12.9 11.7 - 15.5 g/dL [facility] Hematocrit 39.0 35.7 - 45.8 % [facility] MCV 99.0(H) 82.6 - 94.4 fL [facility] MCH 32.7(H) 27.1 - 32.0 pg [facility] MCHC 33.1 31.7 - 35.0 g/dL [facility] Platelets 207 145 - 357 x10(3)/[facility] RDWSD 42.5 37.0 - 46.0 [facility] RDWCV 11.7 11.5 - 14.1 % [facility] MPV 10.9 7.6 - 12.9 [facility] nRBC % Auto 0.0 % [facility] nRBC Abs Auto 0.000 0.000 - 0.000 x10(3)/[facility] Blood 05/08/2023 1:54 PM EST 05/08/2023 2:00 PM EST Narrative Resulting Agency Comment Spec In Lab Ligia Lopez YANN HEMATOLOGY ORDERABLE S [facility] [place] [address] * (ABNORMAL) Basic Metabolic Panel (non-fasting) (05/08/2023 1:54 PM EST) Glucose Lvl 89 65 - 199 mg/dL [facility] Comment:Diabetes: >=200 mg/d L plus symptoms BUN 11 8 - 18 mg/dL [facility] Creatinine 1.45(H) 0.70 - 1.20 mg/dL [facility] Sodium 140 135 - 145 mmol/L [facility] Potassium 4.0 3.5 - 5.0 mmol/L [facility] Comment: Please note: ??Patients with WBC >100,000 may have falsely elevated Potassium levels. ??For accurate Potassium quantification in these patients send serum separator tube (gold top) for subsequent determinations. ??Contact the Clinical Chemistry Laboratory if there are any questions. Chloride 102 98 - 107 mmol/L [facility] CO2 29 22 - 31 mmol/L [facility] Anion Gap 9 5 - 15 mmol/L [facility] Calcium 9.2 8.5 - 10.5 mg/dL [facility] Estimated GFR 41(L) >=60 mL/min/1. 73 m?? [facility] Comment: This patient's estimated GFR [...] Resulting Agency Comment Spec In Lab Ligia Isaac John ROBERTN CHEMISTRY ORDERABLES Performing Organization Address City/Va Hospital/ZIP Co de Phone Number [facility] [place] [address] * (ABNORMAL) PTH (05/08/2023 1:54 PM EST) PTH 84(H) 15 - 65 pg/mL [facility] Blood 05/08/2023 1:54 PM EST 05/08/2023 2:00 PM EST Narrative Resulting Agency Comment Spec In Lab Ligia Isaac John ROBERTN CHEMISTRY ORDERABLES Performing Organization Address [facility]/Va Hospital/[facility] Co de Phone Number [facility] [place] [address] * Albumin Level (05/08/2023 1:54 PM EST) Albumin 4.1 3.2 - 5.2 g/dL [facility] Blood 05/08/2023 1:54 PM EST 05/08/2023 2:00 PM EST Narrative Resulting Agency Comment Spec In Lab Ligia Isaac John ROBERTN CHEMISTRY ORDERABLES Performing Organization Address [facility] Hospital/[facility] Co de Phone Number [facility] [place] [address] * (ABNORMAL) Uric acid (05/08/2023 1:54 PM EST) Uric Acid 6.8(H) 2.5 - 6.5 mg/dL [facility] Blood 05/08/2023 1:54 PM EST 05/08/2023 2:00 PM EST Narrative Resulting Agency Comment Spec In Lab Ligia Isaac John ROBERTN CHEMISTRY ORDERABLES Performing Organization Address City/Va Hospital/ZIP Co de Phone Number [facility] [place] [address] * Phosphorus (05/08/2023 1:54 PM EST) Phosphorus 3.6 2.5 - 4.5 mg/dL [facility] Blood 05/08/2023 1:54 PM EST 05/08/2023 2:00 PM EST Narrative Resulting Agency Comment Spec In Lab Ligia Lopez APRN CHEMISTRY ORDERABLES Performing Organization Address City/Va Hospital/ZIP Co de Phone Number [facility] [place] [address] * Vitamin D, 25-Hydroxy (05/08/2023 1:54 PM EST) 25-OH Vit D Total 47 21 - 100 ng/mL [facility] 25-OH Vit D Interp Sufficient [facility] Blood 05/08/2023 1:54 PM EST 05/08/2023 2:00 PM EST Narrative Resulting Agency Comment Spec In Lab Ligia Lopez APRN CHEMISTRY ORDERABLES Performing Organization Address City/[facility] Hospital/ZIP Co de Phone Number [facility] [place] [address] documented in this encounter Visit Diagnoses Diagnosis Stage 3a chronic kidney disease Hyperparathyroidism Hyperparathyroidism, unspecified documented in this encounter Care Teams Bridge Painter Relationship Specialty Start Date End Date Yumiko Tavarez MD [address] [place] [address] PCP - General Family Medicine 07/07/16 documented as of this encounter
--- OUTSIDE RECORDS SUMMARY | 2023-10-01 21:28 | XMS_ITS | Encounter Summary ---
[place] [address] Care Team Providers Care Aquatics Director Name Role Phone Yumiko Tavarez MD Primary Care Provider [phone] Encounter Details Date Type Department Care Team (Latest Contact Info) Description 01/02/2023 1:30 PM EDT - 01/02/2023 11:59 PM EDT Hospital En[place] [phone] [place] [address] Stage 3a chronic kidney disease Discharge Disposition: [...] in the evening naloxone (Narcan) 4 mg/actuation [place], Non-Aerosol 1 spray by Nasal route as [...] have questions, please contact the health healthcare specialist that requested your imaging first. ?Rosalinda Gonzalez, Staff Physician Electronically Signed Final Report ?? 01/02/2023 04:03 pm Narrative 01/02/2023 4:04 PM EDT Renal ? (Signed Final 01/02/2023 04:03 pm) PATIENT INFO: ID #: ? [id number] ?: ??[birth year] (57 yrs)(F) Name: ? CYDNEY S ? Visit Date: 01/02/2023 02:02 pm ? LARRY PERFORMED BY: Attending: ?Lisa PETTY, Rosalinda Isaac. Performed By: ? Austin SAEZ, Jany Referred By: ?LIGIA Isaac PARTHA Location: ? [facility]) PROVIDED: URETRO - Retroperitoneal Complete - [id number] ? [id number] INDICATIONS: 57 y.o. female CKD3, r/o anatomic [...] 01/02/2023 04:03 pm) PATIENT INFO: ID #: [id number] : [birth year] (57 yrs)(F) Name: CYDNEY Fuentes Visit Date: 01/02/2023 02:02 pm CHAMBERLAIN PERFORMED BY: Attending: Rosalinda Gonzalez MD Performed By: Jany Avila RDMS Referred By: LIGIA LOPEZ Location: [facility]ICE([facility]) PROVIDED: URETRO - Retroperitoneal Complete - [id number] INDICATIONS: 57 y.o. female CKD3, r/o anatomic [...] views. Electronically signed by: Rosalinda Gonzalez MD, [facility] ([phone]), at 01/02/2023 3:57 PM Thank you for letting us participate in the care of this patient. If you are a health care provider and have any questions regarding this report, please contact the number above. For patients who have questions, please contact the health healthcare specialist that requested your imaging first. Rosalinda Gonzalez, Staff Physician Electronically Signed Final Report 01/02/2023 04:03 pm Ligia Lopez APRN IMG US GEN ORDERABLE S documented in this encounter Visit Diagnoses Diagnosis Stage 3a chronic kidney disease documented in this encounter Care Teams Aquatics Director Relationship Specialty Start Date End Date Yumiko Tavarez MD [address] [place] [address] PCP - General Family Medicine 07/07/16 documented as of this encounter
--- OUTSIDE RECORDS SUMMARY | 2023-10-01 21:28 | XMS_ITS | Encounter Summary ---
Author Organization [facility] Address [address] [place] [address] Care Team Providers Care Artist Representative Name Role Phone Unknown, Provider Primary Care Provider [phone] Encounter Details Date Type Department Care Team (Late Contact Info) Description 11/10/2010 Results Only [facility] - [facility] [address] [place], [place] [address] Jerri Topete MD [address] [place] [address] [place] [address] Social History Tobacco Use Types Packs/Day Years [...] Office Visit [facility] Neurology - [address] [place], [place] [address] Alta Walter MD [address] [place] [address], [address] [place] [address] documented as of this encounter [...] ? ALMAZAN, CYDNEY ? Accession #: ? [id number] ? : ? 1965 (Age: 45) ??F [...] Topete MD PATHOLOGY ORDERABLES Performing Organization Address City/State/[facility] Co de Phone Number [facility] [address] [place] [address] documented in this encounter Visit Diagnoses Not on filedocumented in this encounter Care Teams Artist Representative Relationship Specialty Start Date End Date Unknown, Provider, PCP - General 08/05/08 12/28/19 documented as of this encounter
--- OUTSIDE RECORDS SUMMARY | 2023-10-01 21:28 | XMS_ITS | Encounter Summary ---
[place] [address] Care Team Providers Care Ironing Worker Name Role Phone Yumiko Tavarez MD Primary Care Provider [phone] Encounter Details Date Type Department Care Team [...] on filedocumented in this encounter Care Teams Ironing Worker Relationship Specialty Start Date End Date Yumiko Tavarez MD [address] [place] [address] PCP - General Family Medicine 07/07/16 documented as of this encounter
--- OUTSIDE RECORDS SUMMARY | 2023-10-01 21:28 | XMS_ITS | Encounter Summary ---
Author Organization [facility] Address [address] [place] [address] Care Team Providers Care Pants Maker Name Role Phone Yumiko Tavarez MD Primary Care Provider [phone] Reason for Visit * Reason Onset Date Comments Appointment Related 01/30/2020 Encounter Details Date Type Department Care Team (Late st Contact Info) Description 01/30/2020 Telephone [facility] Neurology - [address] [id number] Alta Walter MD [address] [place] [address] [address] [place] [address] Appointment Related Social History Tobacco [...] yet, no message could be left. No [employer] access. documented in this encounter Plan of Treatment Upcoming Encounters Date Type Department Care Team (Late st Contact Info) Description 02/13/2024 13:00 EST Office Visit [facility] Neurology - [address] [address] Alta Walter MD [address] [place] [address], [address] [place] [address] documented as of this encounter Visit Diagnoses Not on filedocumented in this encounter Care Teams Pants Maker Relationship Specialty Start Date End Date Yumiko Tavarez MD [address] [place] [address] PCP - General 12/29/19 documented as of this encounter
--- OUTSIDE RECORDS SUMMARY | 2023-10-01 21:28 | XMS_ITS | Encounter Summary ---
[place] [address] Care Team Providers Care Harness Installer Name Role Phone Yumiko Tavarez MD Primary Care Provider [phone] Encounter Details Date Type Department Care Team (Late st Contact Info) Description 03/04/2020 [place]phone [place] [phone] Razia Aragon MD [facility] [place] [address] Social History Tobacco Use Types Packs/Day Years [...] illegible, Card numbers and information called into [employer] program number * Telephone Encounter - Nishi Gonsalves RN - 03/04/2020 12:37 PM EST form refaxed * Telephone Encounter - Kay Mak - 03/04/2020 11:24 AM EST Call Center / Acupressure Therapist Message - General Issue Call Provider patient sees in Clinic: Jamie Aragon Caller and relationship (if other than patient-full name): Harrison Quiñones patient support program Call back number: [phone] Ok to leave a message: y Reason [...] filedocumented in this encounter Care Teams Harness Installer Relationship Specialty Start Date End Date Yumiko Tavarez MD [address] [place] [address] PCP - General Family Medicine 07/07/16 documented as of this encounter
--- OUTSIDE RECORDS SUMMARY | 2023-10-01 21:28 | XMS_ITS | Encounter Summary ---
[place] [address] Care Team Providers Care Nutritional Services Director Name Role Phone Yumiko Tavarez MD Primary Care Provider [phone] Encounter Details Date Type Department Care Team (Latest Contact Info) Description 08/14/2022 11:30 AM EDT Laboratory Appointment Lab [address] [place] [phone] Stage 3 chronic kidney disease, unspecified whether [...] PM EDT) Glucose UA Negative Negative mg/dL [facility] Protein UA Negative Negative mg/dL [facility] Bilirubin UA Negative Negative mg/dL [facility] Comment: Clinical correlation required for positive Urine Bilirubin results as false positive may occur with some drugs and drug related products. If a false positive is suspected a serum total bilirubin should be considered if clinically indicated. Urobilinogen UA Normal Normal mg/dL [facility] pH UA 6.0 5.0 - 8.0 [facility] Blood UA Small(A) Negative mg/dL [facility] Ketones UA Negative Negative mg/dL [facility] Nitrite UA Negative Negative [facility] Leukocytes UA Negative Negative mcL [facility] Appearance UA Clear Clear [facility] Spec [place] UA 1.010 1.005 - 1.030 [facility] Color UA Yellow Yellow [facility] Urine 08/14/2022 12:2 4 PM EDT 08/14/2022 12:33 PM EDT Narrative Resulting Agency Comment Spec In Lab Efren Suh MD URINE ORDERABLES [facility] [place] [address] * Differential, Automated (08/14/2022 11:52 AM EDT) Neutrophils % 44.1 % [facility] Neutr Abs (ANC) 2.42 1.70 - 6.10 x10(3)/[facility] Lymphocytes % 46.7 % [facility] Lymphocytes Abs 2.6 0.9 - 3.2 x10(3)/[facility] Monocytes % 7.7 % [facility] Monocyte Abs 0.4 0.3 - 0.9 x10(3)/[facility] Eosinophils % 0.9 % [facility] Eosinophils Abs 0.0 0.0 - 0.4 x10(3)/[facility] Basophils % 0.4 % [facility] Basophils Abs 0.0 0.0 - 0.1 x10(3)/[facility] Immature Gran % 0.20 % [facility] Comment: Immature granulocytes(IG's)percentage and absolute count will include metamyelocytes, myelocytes, and promyelocytes. Blood smears from CBCs yielding IG's will be scanned manually for concordance. If this scan disagrees with the automated IG or if promyelocytes are noted, a manual differential will be performed. Kimberly Gran Abs 0.01 0.00 - 0.04 x10(3)/[facility] Blood 08/14/2022 11:5 2 AM EDT 08/14/2022 11:59 AM EDT Narrative Resulting Agency Comment Spec In Lab Neeraj Vasquez MD HEMATOLOGY ORDChio PEDRAZA [facility] [place] [address] * (ABNORMAL) Hemogram (08/14/2022 11:52 AM EDT) WBC 5.5 4.0 - 9.5 x10(3)/[facility] RBC 3.82(L) 4.00 - 5.21 x10(6)/[facility] Hemoglobin 12.4 11.7 - 15.5 g/dL [facility] Hematocrit 37.9 35.7 - 45.8 % [facility] MCV 99.2(H) 82.6 - 94.4 fL [facility] MCH 32.5(H) 27.1 - 32.0 pg [facility] MCHC 32.7 31.7 - 35.0 g/dL [facility] Platelets 199 145 - 357 x10(3)/[facility] RDWSD 44.5 37.0 - 46.0 [facility] RDWCV 12.3 11.5 - 14.1 % [facility] MPV 10.9 7.6 - 12.9 [facility] nRBC % Auto 0.0 % [facility] nRBC Abs Auto 0.000 0.000 - 0.000 x10(3)/[facility] Blood 08/14/2022 11:5 2 AM EDT 08/14/2022 11:59 AM EDT Narrative Resulting Agency Comment Spec In Lab Neeraj Vasquez MD HEMATOLOGY ORDChio PEDRAZA [facility] [place] [address] * Vitamin D, 25-Hydroxy (08/14/2022 11:52 AM EDT) 25-OH Vit D Total 40 21 - 100 ng/mL [facility] 25-OH Vit D Interp Sufficient [facility] Blood 08/14/2022 11:5 2 AM EDT 08/14/2022 11:59 AM EDT Narrative Resulting Agency Comment Spec In Lab Efren Suh MD CHEMISTRY ORDERABLES [facility] [place] [address] * (ABNORMAL) Basic Metabolic Panel (non-fasting) (08/14/2022 11:52 AM EDT) Glucose Lvl 82 65 - 199 mg/dL [facility] Comment:Diabetes: >=200 mg/d L plus symptoms BUN 13 8 - 18 mg/dL [facility] Creatinine 1.14 0.70 - 1.20 mg/dL [facility] Sodium 141 135 - 145 mmol/L [facility] Potassium 4.5 3.5 - 5.0 mmol/L [facility] Comment: Please note: ??Patients with WBC >100,000 may have falsely elevated Potassium levels. ??For accurate Potassium quantification in these patients send serum separator tube (gold top) for subsequent determinations. ??Contact the Clinical Chemistry Laboratory if there are any questions. Chloride 103 98 - 107 mmol/L [facility] CO2 28 22 - 31 mmol/L [facility] Anion Gap 10 5 - 15 mmol/L [facility] Calcium 9.6 8.5 - 10.5 mg/dL [facility] Estimated GFR 55(L) >=60 mL/min/1. 73 m?? [facility] Comment: This patient's estimated GFR [...] In Lab Efren Suh MD CHEMISTRY ORDERABLES [facility] [place] [address] * (ABNORMAL) PTH (08/14/2022 11:52 AM EDT) PTH 76(H) 15 - 65 pg/mL [facility] Blood 08/14/2022 11:5 2 AM EDT 08/14/2022 11:59 AM EDT Narrative Resulting Agency Comment Spec In Lab Efren Suh MD CHEMISTRY ORDERABLES Performing Organization Address City/[facility]/ZIP Co de Phone Number [facility] [place] [address] * Calcium (08/14/2022 11:52 AM EDT) Calcium 9.6 8.5 - 10.5 mg/dL [facility] Blood 08/14/2022 11:5 2 AM EDT 08/14/2022 11:59 AM EDT Narrative Resulting Agency Comment Spec In Lab Efren Suh MD CHEMISTRY ORDERABLES Performing Organization Address City/[facility]/ZIP Co de Phone Number [facility] [place] [address] * Phosphorus (08/14/2022 11:52 AM EDT) Phosphorus 4.2 2.5 - 4.5 mg/dL [facility] Blood 08/14/2022 11:5 2 AM EDT 08/14/2022 11:59 AM EDT Narrative Resulting Agency Comment Spec In Lab Efren Suh MD CHEMISTRY ORDERABLES [facility] [place] [address] documented in this encounter Visit Diagnoses Diagnosis Stage 3 chronic kidney disease, unspecified whether stage 3a or 3b CKD documented in this encounter Care Teams Nutritional Services Director Relationship Specialty Start Date End Date Yumiko Tavarez MD [address] [place] [address] PCP - General Family Medicine 07/07/16 documented as of this encounter
--- OUTSIDE RECORDS SUMMARY | 2023-10-01 21:28 | XMS_ITS | Encounter Summary ---
Author Organization [facility] [address] Care Team Providers Care Roofing Contractor Name Role Phone Yumiko Tavarez MD Primary Care Provider [phone] Encounter Details Date Type Department Care Team (Latest Contact Info) Description 05/08/2023 2:30 PM EST Office Visit Neph[place] [address] Nenita Grimes, SANDER PORTABLE MACHINE [facility] [place] [address] Stage 3b chronic kidney disease; Hyperparathyroidism Social [...] in this encounter Progress Notes * CornelioNenita, SANDER PORTABLE MACHINE - 05/08/2023 2:30 PM EST Images from the original note were not included. [facility] NEPHROLOGY/HYPERTENSION CLINIC FOLLOW-UP NOTE [id number] ID: 58 y.o.year-old female seen for follow [...] in the evening naloxone (Narcan) 4 mg/actuation Dewart, Non-Aerosol 1 spray by Nasal route as [...] and is currently receiving care from a [facility] urology however she is unable to [...] Negative mcL Appearance UA Clear Clear Spec Nash UA 1.016 1.005 - 1.030 Color UA [...] It is unclear why she is seeing [facility] urology, and I will need to [...] and coordination of care. Nenita Grimes APRN [facility] [address] 2nd floor, Aquatics Instructor [address] [place] [address] CC: Yumiko Tavarez MD @PCPADD@ documented in this encounter Plan of Treatment Scheduled Orders Name Type Priority Associated Diagnoses [...] Protein Ran <6 0 - 12 mg/dL [facility] Prot/Cre Ratio <0.1 ratio [facility] Urine 05/08/2023 2:02 PM EST 05/08/2023 2:17 PM EST Narrative Resulting Agency Comment Spec In Lab Nenita Grimes APRN URINE ORD ERABLES [facility] [place] [id number] * U Albumin/Cre Ratio (05/08/2023 2:02 PM EST) Alb/Cr Ratio, Random Not Calculated 0 - 29 mcg/mg Cr [facility] Comment: Reference Ranges: <30 [...] 362 U Albumin Conc, Random <3.0 mg/L [facility] U Creatinine 128 mg/dL [facility] Urine 05/08/2023 2:02 PM EST 05/08/2023 2:17 PM EST Narrative Resulting Agency Comment Spec In Lab Nenita Grimes APRN URINE ORD ERABLES [facility] [place] [address] * (ABNORMAL) _Urinalysis with microscopic (05/08/2023 2:02 PM EST) Glucose UA Negative Negative mg/dL [facility] Protein UA Negative Negative mg/dL [facility] Bilirubin UA Negative Negative mg/dL [facility] Comment: Clinical correlation required for positive Urine Bilirubin results as false positive may occur with some drugs and drug related products. If a false positive is suspected a serum total bilirubin should be considered if clinically indicated. Urobilinogen UA Normal Normal mg/dL [facility] pH UA 5.5 5.0 - 8.0 [facility] Blood UA Small(A) Negative mg/dL [facility] Ketones UA Negative Negative mg/dL [facility] Nitrite UA Negative Negative [facility] Leukocytes UA Negative Negative mcL [facility] Appearance UA Clear Clear [facility] Spec Nash UA 1.016 1.005 - 1.030 [facility] Color UA Yellow Yellow [facility] RBC UA 2 0 - 4 /HPF [facility] WBC UA 1 0 - 5 /HPF [facility] Squam Epith UA 1 <=4 /HPF [facility] Urine 05/08/2023 2:02 PM EST 05/08/2023 2:17 PM EST Narrative Resulting Agency Comment Spec In Lab Nenita Grimes SANDER PORTABLE MACHINE URINE ORD ERABLES Performing Organization Address City/State/[facility] Co de Phone Number [facility] [place] [address] documented in this encounter Visit Diagnoses Diagnosis Stage 3b chronic kidney disease Hyperparathyroidism Hyperparathyroidism, unspecified documented in this encounter Care Teams Roofing Contractor Relationship Specialty Start Date End Date Yumiko Tavarez MD [address] [place] [address] PCP - General Family Medicine 07/07/16 documented as of this encounter
--- OUTSIDE RECORDS SUMMARY | 2023-10-01 21:28 | XMS_ITS | Encounter Summary ---
Author Organization [facility] Address [address] [place] [address] Care Team Providers Care Data Modeler Name Role Phone Yumiko Tavarez MD Primary Care Provider [phone] Reason for Visit * Reason Comments New Patient Visit * Referral (Routine) - Closed Specialty Diagnoses / Procedures [facility]erred To Contact Neurology Diagnoses Parkinson's disease ([facility]) Yumiko Tavarez MD [address] [place] [phone] Polo Peter MD [address] [place] [phone] Referral ID Status Reason Start Date Expiration Date Visits Re quested Visits Authorized [id number] Closed 1 1 Encounter Details Date Type Department Care Team ([facility] st Contact Info) Description 02/23/2020 13:15 EST Office Visit [facility] Neurology - [address] [id number] Alta Walter MD [address] [place] [phone] Involuntary movements (Primary Dx); Tremor; Peripheral [...] Consultation Clinician Requesting Consultation: Yumiko Tavarez MD [address] [place] [address] Primary Tax Intern: Yumiko Tavarez [address] [place] [address] ASSESSMENT & PLAN / RECOMMENDATIONS 1. Involuntary [...] ago, she was evaluated by neurologists at [facility] and had a thorough evaluation for [...] # [facility] # If she has taken [...] - has dysphagia, referral sent to [facility] Current Medications: Outpatient Medications Marked as Taking [...] naloxone (NARCAN) 4 mg/actuation nasal spray 1 Norris by nasal route as needed. ??? 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 If there are any questions, please contact the office at [phone]. Alta Thakkar MD Attending Physician, Movement Disorders Department of Neurology documented in this encounter Plan of Treatment Upcoming Encounters Date Type Department Care Team (Late st Contact Info) Description 02/13/2024 13:00 EST Office Visit [facility] [place] [facility]rology - [address] [place] [address] [place], [place] [address] Alta Walter MD [address] [place] [address], [facility] [address] [place] [address] documented as of this encounter [...] daily. added in this encounter Care Teams Data Modeler Relationship Specialty Start Date End Date Yumiko Tavarez MD [address] [place] [address] PCP - General 12/29/19 documented as of this encounter
--- OUTSIDE RECORDS SUMMARY | 2023-10-01 21:28 | XMS_ITS | Encounter Summary ---
Author Organization [facility] Address [address] [place] [address] Care Team Providers Care Probate Paralegal Name Role Phone Yumiko Tavarez MD Primary Care Provider [phone] Reason for Visit * Radiology Services (Routine) - Receiving Office to Obtain Authorization Specialty Diagnoses / Procedures Referred By Contac t Referred To Contact Nuclear Medicine Diagnoses Parkinsonism, unspecified Parkinsonism type (HCC-CMS) Procedures NM DATSCAN WITH SPECT/CT NM DATSCAN SPECT Alta Walter MD [address] [place] [address] 2 [place] [address] Referral ID Status Reason Start Date Expiration Date Visits Requested Visits Authorized [id number] Receiving Office to Obtain Authorization 04/07/2020 1 1 Encounter Details Date Type Department Care Team (Latest Contact Info) Description 05/20/2020 11:00 EDT - 05/20/2020 11:07 EDT Hospital Encounter [facility] Radiology Nuclear Medicine and PET - [address] [id number] Parkinsonism, unspecified Parkinsonism type (HCC-CMS) Discharge Disposition: [...] Info) Description 02/13/2024 13:00 EST Office Visit [facility] Neurology - [address] [id number] Alta Walter MD [address] [place] [address], Level [address] [place] [phone] documented as of this encounter Procedures Procedure [...] 05/20/2020 documented in this encounter Care Teams Probate Paralegal Relationship Specialty Start Date End Date Yumiko Tavarez MD [address] [place] [address] PCP - General 12/29/19 documented as of this encounter
--- OUTSIDE RECORDS SUMMARY | 2023-10-01 21:28 | XMS_ITS | Encounter Summary ---
Author Organization [facility] Address [address] [place] [address] Care Team Providers Care Jacquard Card Lacer Name Role Phone Yumiko Tavarez MD Primary Care Provider [phone] Reason for Visit * Reason Onset Date Comments Other 04/06/2020 Encounter Details Date Type Department Care Team (Late st Contact Info) Description 04/06/2020 Telephone [facility] Neurology - [address] [id number] Alta Walter MD [address] [place] [address] Level 2 [place] [phone] Other Social History Tobacco Use Types Packs/Day [...] and the lugol's solution was sent to [facility]-they will call her when ready. Informed her that she would receive a call from [facility] to schedule the scan. She reports [...] she is still recommending it. Preferred pharmacy [facility] in [place], [place] * Telephone Encounter - Kena Marshall [...] Visit [facility] Neurology - [address] [place] [address] [place] [address] Alta Walter MD [address] [place] [address], Level [address] [place] [phone] documented as of this encounter Visit Diagnoses Diagnosis Parkinsonism, unspecified Parkinsonism type (HCC-CMS)- Primary documented in this encounter Care Teams Jacquard Card Lacer Relationship Specialty Start Date End Date Yumiko Tavarez MD [address] [place] [address] PCP - General 12/29/19 documented as of this encounter
--- OUTSIDE RECORDS SUMMARY | 2023-10-01 21:28 | XMS_ITS | Encounter Summary ---
[place] [address] Care Team Providers Care Signal Maintainer Name Role Phone Yumiko Tavarez MD Primary Care Provider [phone] Encounter Details Date Type Department Care Team (Late st Contact Info) Description 11/22/2022 Orders Only [place] [phone] Ligia Lopez, EMPLOYEE [place] [address] Stage 3a chronic kidney disease; Hyperparathyroidism Social [...] D Total 47 21 - 100 ng/mL [facility] 25-OH Vit D Interp Sufficient [facility] Blood 05/08/2023 1:54 PM EST 05/08/2023 2:00 PM EST Narrative Resulting Agency Comment Spec In Lab Ligia Lopez APRN CHEMISTRY ORDERABLES [facility] [place] [address] * Phosphorus (05/08/2023 1:54 PM EST) Phosphorus 3.6 2.5 - 4.5 mg/dL [facility] Blood 05/08/2023 1:54 PM EST 05/08/2023 2:00 PM EST Narrative Resulting Agency Comment Spec In Lab Ligia Poncho Lopez APRN CHEMISTRY ORDERABLES Performing Organization Address City/[facility]/ZIP Co de Phone Number [facility] [place] [address] * (ABNORMAL) Uric acid (05/08/2023 1:54 PM EST) Uric Acid 6.8(H) 2.5 - 6.5 mg/dL [facility] Blood 05/08/2023 1:54 PM EST 05/08/2023 2:00 PM EST Narrative Resulting Agency Comment Spec In Lab Ligia Poncho Lopez APRN CHEMISTRY ORDERABLES Performing Organization Address City/[facility]/ZIP Co de Phone Number [facility] [place] [address] * Albumin Level (05/08/2023 1:54 PM EST) Albumin 4.1 3.2 - 5.2 g/dL [facility] Blood 05/08/2023 1:54 PM EST 05/08/2023 2:00 PM EST Narrative Resulting Agency Comment Spec In Lab Ligia Lopez APRN CHEMISTRY ORDERABLES [facility] [place] [address] * (ABNORMAL) PTH (05/08/2023 1:54 PM EST) PTH 84(H) 15 - 65 pg/mL [facility] Blood 05/08/2023 1:54 PM EST 05/08/2023 2:00 PM EST Narrative Resulting Agency Comment Spec In Lab Ligia Lopez YANN CHEMISTRY ORDERABLES [facility] [place] [address] * (ABNORMAL) Basic Metabolic Panel (non-fasting) (05/08/2023 1:54 PM EST) Glucose Lvl 89 65 - 199 mg/dL [facility] Comment:Diabetes: >=200 mg/d L plus symptoms BUN 11 8 - 18 mg/dL [facility] Creatinine 1.45(H) 0.70 - 1.20 mg/dL [facility] Sodium 140 135 - 145 mmol/L [facility] Potassium 4.0 3.5 - 5.0 mmol/L [...] Comment Spec In Lab Ligia Isaac John EMPLOYEE RELATIONS ADMINISTRATOR CHEMISTRY ORDERABLES Performing Organization Address City/State/[facility] Co de Phone Number [facility] [place] [address] documented in this encounter Visit Diagnoses Diagnosis Stage 3a chronic kidney disease Hyperparathyroidism Hyperparathyroidism, unspecified documented in this encounter Care Teams Signal Maintainer Relationship Specialty Start Date End Date Yumiko Tavarez MD [address] [place] [address] PCP - General Family Medicine 07/07/16 documented as of this encounter
--- OUTSIDE RECORDS SUMMARY | 2023-10-01 21:28 | XMS_ITS | Encounter Summary ---
[place] [address] Care Team Providers Care It Desktop Support Specialist Name Role Phone Yumiko Tavarez MD Primary Care Provider [phone] Encounter Details Date Type Department Care Team (Late st Contact Info) Description 11/23/2022 Orders Only [place] [phone] [place] [address] Stage 3a chronic kidney disease Social History [...] who have questions, please contact the health director career that requested your imaging first. ?Rosalinda Gonzalez, Staff Physician Electronically Signed Final Report ?? 01/02/2023 04:03 pm Narrative 01/02/2023 4:04 PM EDT Renal ? (Signed Final 01/02/2023 04:03 pm) PATIENT INFO: ID #: ? [id number] ?: ??[birth year] (57 yrs)(F) Name: ? CYDNEY S ? Visit Date: 01/02/2023 02:02 pm ? LARRY PERFORMED BY: Attending: ?Rosalinda Gonzalez MD Performed By: ? Jany Avila RDMS Referred By: ?LIGIA LOPEZ Location: ? [place] SERVICE(S) PROVIDED: URETRO - Retroperitoneal Complete - [id number] ? [id number] INDICATIONS: 57 y.o. female CKD3, r/o anatomic [...] 01/02/2023 04:03 pm) PATIENT INFO: ID #: [id number] : [birth year] (57 yrs)(F) Name: CYDNEY Fuentes Visit Date: 01/02/2023 02:02 pm CHAMBERLAIN PERFORMED BY: Attending: Rosalinda Gonzalez MD Performed By: Jany Avila RDMS Referred By: LIGIA LOPEZ Location: [place] SERVICE(S) PROVIDED: URETRO - Retroperitoneal Complete - [id number] INDICATIONS: 57 y.o. female CKD3, r/o anatomic [...] who have questions, please contact the health director career that requested your imaging first. Rosalinda Gonzalez, Staff Physician Electronically Signed Final Report 01/02/2023 04:03 pm Ligia Lopez APRN IMG US GEN ORDERABLE S documented in this encounter Visit Diagnoses Diagnosis Stage 3a chronic kidney disease Stage 3a chronic kidney disease documented in this encounter Care Teams It Desktop Support Specialist Relationship Specialty Start Date End Date Yumiko Tavarez MD [address] [place] [address] PCP - General Family Medicine 07/07/16 documented as of this encounter
--- OUTSIDE RECORDS SUMMARY | 2023-10-01 21:28 | XMS_ITS | Encounter Summary ---
[place] [address] Care Team Providers Care Baseball Club Manager Name Role Phone Yumiko Tavarez MD Primary Care Provider [phone] Reason for Referral * Consultation (Routine) - Closed Specialty Diagnoses / Procedures Referred By Contac t Referred To Contact Nephrology Diagnoses Stage 3 chronic kidney disease, unspecified whether stage 3a or 3b CKD Yumiko Tavarez MD [address] [place] [address] [facility] [address] [place] [phone] Referral ID Status Reason Start Date Expiration Date V isits Requested Visits Authorized [id number] Closed Consult, Test & Treat PCP Updated and/or Approved 03/13/2022 09/09/2022 1 1 Encounter Details Date Type Department Care Team (Latest Contact Info) Description 03/13/2022 Transcribe Orders eDH Incoming Referrals [phone] Yumiko Tavarez MD [address] [place] [address] Stage 3 chronic kidney disease, [...] as of this encounter Plan of Treatment Scheduled Referrals Name Type Priority Associated Diagnoses Orde r Schedule Referral to Nephrology Outpatient Referral Routine Stage 3 Chronic Kidney Disease, Unspecified Whether Stage 3a Or 3b Ckd Ordered: 03/13/2022 documented as of this encounter Visit Diagnoses Diagnosis Stage 3 chronic kidney disease, unspecified whether stage 3a or 3b CKD documented in this encounter Care Teams Baseball Club Manager Relationship Specialty Start Date End Date Yumiko Tavarez MD [address] [place] [address] PCP - General Family Medicine 07/07/16 documented as of this encounter
--- OUTSIDE RECORDS SUMMARY | 2023-10-01 21:28 | XMS_ITS | Encounter Summary ---
[place] [address] Care Team Providers Care Dude Ranch Manager Name Role Phone Yumiko Tavarez MD [...] on filedocumented in this encounter Care Teams Dude Ranch Manager Relationship Specialty Start Date End Date Yumiko Tavarez MD [address] [place] [address] PCP - General Family Medicine 07/07/16 documented as of this encounter
--- OUTSIDE RECORDS SUMMARY | 2023-10-01 21:28 | XMS_ITS | Encounter Summary ---
Author Organization [facility] Address [address] [place] [address] Care Team Providers Care Hygiene Coordinator Name Role Phone Yumiko Tavarez MD Primary Care Provider [phone] Encounter Details Date Type Department Care Team (Late st Contact Info) Description 03/12/2020 Lab Requisition [facility] Pathology & Laboratory Medicine - [facility] [address] [place] [address] Yoli Jeong MD [address] [place] [address],[address] [address] Encounter for other general examination Social History [...] Info) Description 02/13/2024 13:00 EST Office Visit [facility] Neurology - [address] [place] [address] [place], [place] [address] Alta Walter MD [address] [place] [address], Level [address] [place] [phone] documented as of this encounter Procedures Procedure [...] epithelial change. - Chronic cervicitis 03/17/2020 16:48 [facility] Diagnosis Comment Within the endocervical curettage (A), there is an isolated fragment of squamous epithelium with cytologic changes that are suspicious but not fully diagnostic for a low-grade squamous intraepithelial lesion (CODI 1). Deeper sections have been examined. 03/17/2020 16:48 [facility] Attestation There was significant resident/fellow involvement in the diagnostic evaluation of this case. By the signature below, the attending physician certifies that they have personally conducted a gross and/or microscopic examination of the described specimens and rendered or confirmed the above diagnosis. 03/17/2020 16:48 [facility] at 1648 Clinical History ASCUS, (+) HPV 03/17/2020 16:48 [facility] Gross Description A. Received in [...] B1. CHRIS ULLOA(ASCP) 03/15/2020 8:30 03/17/2020 16:48 [facility] Resident/Julio César w: Jonah Patterson MD 03/17/2020 16:48 [facility] Performing Lab [facility] 16:48 [facility] Scanned Images 03/17/2020 16:48 EST [facility] Tissue ENTIRE WALL OF CERVIX / Unknown 03/12/2020 15:35 EST 03/12/2020 21:23 EST Tissue specimen (specimen) CERVIX UTERI STRUCTURE / Unknown 03/12/2020 15:35 EST 03/12/2020 21:23 EST Yoli Jeong MD PATHOLOGY ORDERABLES Performing Organization Address City/State/[facility] Co de Phone Number [facility] [address] [place] [address] documented in this encounter Visit Diagnoses Diagnosis Encounter for other general examination documented in this encounter Care Teams Hygiene Coordinator Relationship Specialty Start Date End Date Yumiko Tavarez MD [address] [place] [address] PCP - General 12/29/19 documented as of this encounter
--- OUTSIDE RECORDS SUMMARY | 2023-10-01 21:28 | XMS_ITS | Encounter Summary ---
Author Organization [facility] Address [address] [place] [address] Care Team Providers Care Garbage Collector Driver Name Role Phone Unknown, Provider Primary Care Provider [phone] Encounter Details Date Type Department Care Team (Late st Contact Info) Description 05/29/2007 Results Only [facility] - [place] [address] [place] [address] Jerri Topete MD [address] [place] [address] [place] [address] Social History Tobacco Use Types Packs/Day Years [...] [facility] Neurology - [address] [place] [address] [place] [phone] Alta Walter MD [address] [place] [address] Level [address] [place] [phone] documented as of this encounter Procedures Procedure [...] 68. [facility] Report Status Final [id number] [facility] 05/29/2007 13:4 0 EDT 06/04/2007 14:32 EDT Jerri Topete MD MICROBIOLOGY - GENER AL ORDERABLES [facility] [address] [place] [address] * CYTOPATHOLOGY (05/29/2007 0:00 EDT) Pathology Report: CYTOPATHOLOGY REPORT Reports generated via electronic interface contain original data; however they are lacking the format of the original report. Caution should be taken when reading/interpreti ng unformatted reports. Name: ? THA, CYDNEY ? Accession #: ? [id number] : ? 1965 (Age: 42) ??F ?Collect Date: ? 05/29/2007 Location: ? [facility] ? Receive Date: ? 05/30/2007 Provider: ?JERRI TOPETE MD Copy to: ? Specimen/Source: ?ThinPrep Pap Test, Cervix/Endocervix, processed on [employer] ThinPrep Imaging System, with manual evaluation Last [...] 05/29/2007 05/30/2007 Jerri Topete MD PATHOLOGY ORDERABLES [facility] [address] [place] [address] documented in this encounter Visit Diagnoses Not on filedocumented in this encounter Care Teams Garbage Collector Driver Relationship Specialty Start Date End Date Unknown, Provider, PCP - General 08/05/08 12/28/19 documented as of this encounter
--- OUTSIDE RECORDS SUMMARY | 2023-10-01 21:28 | XMS_ITS | Clinical Summary ---
Author Organization [facility] [place] [address] Care Team Providers Care Event Decorator Name Role Phone Yumiko Tavarez MD Primary Care Provider [phone] Allergies Active Allergy Reactions Criticality Noted Date [...] the evening Active naloxone (Narcan) 4 mg/actuation Gail, Non-Aerosol 1 spray by Nasal route as [...] 05/08/2023 2:35 PM EST Plan of Treatment Health Maintenance Due [...] Glucose Lvl 89 65 - 199 mg/dL [facility] Comment:Diabetes: >=200 mg/d L plus symptoms BUN 11 8 - 18 mg/dL [facility] Creatinine 1.45(H) 0.70 - 1.20 mg/dL [facility] Sodium 140 135 - 145 mmol/L [facility] Potassium 4.0 3.5 - 5.0 mmol/L [facility] Comment: Please note: ??Patients with WBC >100,000 may have falsely elevated Potassium levels. ??For accurate Potassium quantification in these patients send serum separator tube (gold top) for subsequent determinations. ??Contact the Clinical Chemistry Laboratory if there are any questions. Chloride 102 98 - 107 mmol/L [facility] CO2 29 22 - 31 mmol/L [facility] Anion Gap 9 5 - 15 mmol/L [facility] Calcium 9.2 8.5 - 10.5 mg/dL [facility] Estimated GFR 41(L) >=60 mL/min/1. 73 m?? [facility] Comment: This patient's estimated GFR [...] In Lab Ligia Lopez APRN CHEMISTRY ORDERABLES [facility] [place] [address] from Last 3 Months or Most Recently Relevant to Health Maintenance Care Teams Event Decorator Relationship Specialty Start Date End Date Yumiko Tavarez MD [address] [place], [place] [id number] PCP - General Family Medicine 07/07/16
--- OUTSIDE RECORDS SUMMARY | 2023-10-01 21:29 | XMS_ITS | Encounter Summary ---
Author Organization [facility] [place] [address] Care Team Providers Care Air Transportation Provider Name Role Phone Serafin Glass MD Primary Care Provider + Encounter Details Date Type Department Care Team (Late st Contact Info) Description 01/23/2013 Orders [place] [address] Marty Nick MD [facility] [place] [address] Social History Tobacco Use Types Packs/Day Years [...] on filedocumented in this encounter Care Teams Air Transportation Provider Relationship Specialty Start Date End Date Serafin Glass MD [address] [place] [address] PCP - General 01/25/10 07/06/16 documented as of this encounter
--- OUTSIDE RECORDS SUMMARY | 2023-10-01 21:29 | XMS_ITS | Encounter Summary ---
Author Organization [facility] [place] [address] Care Team Providers Care Explosive Ordnance Manager Name Role Phone Yumiko Tavarez MD Primary Care Provider [phone] Encounter Details Date Type Department Care Team (Late st Contact Info) Description 02/05/2017 1:00 PM EST Office [place] [address] Razia Mims MD [facility] [place] [address] Primary Parkinsonism Social History Tobacco Use Types [...] Mims MD - 02/05/2017 1:00 PM EST [facility] Movement Disorders Follow Up Patient Evaluation Date of service 02/05/2017 Referring provider Yumiko Tavarez MD [address] [place] [address] Cc: tremor History of present illness Miguelina [...] LAPAROSCOPIC ??? VERTEBROPLASTY Social History: Lives in [facility], she is retired from [employer]. Remote history of cocaine use Family History [...] consideration of ADCY5 testing Razia Mims MD [facility] Neurology-Movement Disorders documented in this encounter Plan of Treatment Not on file documented as of this encounter Visit Diagnoses Diagnosis Primary parkinsonism Paralysis agitans documented in this encounter Care Teams Explosive Ordnance Manager Relationship Specialty Start Date End Date Yumiko Tavarez MD [address] [place] [address] PCP - General Family Medicine 07/07/16 documented as of this encounter
--- OUTSIDE RECORDS SUMMARY | 2023-10-01 21:29 | XMS_ITS | Encounter Summary ---
Author Organization [facility] [place] [address] Care Team Providers Care Tobacco Drier Operator Name Role Phone Serafin Glass MD Primary Care Provider + Encounter Details Date Type Department Care Team (Late st Contact Info) Description 01/23/2013 Orders [place] [address] Marty Nick MD [facility] [place] [place] [address] Social History Tobacco Use Types Packs/Day Years [...] on filedocumented in this encounter Care Teams Tobacco Drier Operator Relationship Specialty Start Date End Date Serafin Glass MD [address] [place] [address] PCP - General 01/25/10 07/06/16 documented as of this encounter
--- OUTSIDE RECORDS SUMMARY | 2023-10-01 21:29 | XMS_ITS | Encounter Summary ---
Author [facility] [address] Care Team Providers Care Operating Room Rn Name Role Phone Yumiko Tavarez MD Primary Care Provider [phone] Encounter Details Date Type Department Care Team (Late st Contact Info) Description 08/06/2017 4:00 PM EDT Office [place] [address] Razia Mims MD [facility] [place] [address] Primary Parkinsonism Social History Tobacco Use Types [...] Mims MD - 08/06/2017 4:00 PM EDT [facility] Movement Disorders Follow Up Patient Evaluation Date of service 08/06/2017 Referring provider Yumiko Tavarez MD [address] [place] [address] Cc: tremor History of present illness Miguelina [...] 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 Stretching makes her feel better. She has [...] Disp: , Rfl: Social History: Lives in [facility], she is retired from [email or web address]. Remote history of cocaine use Review of [...] or other genetic testing Razia Mims MD [facility] Neurology-Movement Disorders documented in this encounter Plan of Treatment Not on file documented as of this encounter Visit Diagnoses Diagnosis Primary parkinsonism Paralysis agitans documented in this encounter Care Teams Operating Room Rn Relationship Specialty Start Date End Date Yumiko Tavarez MD [address] [place] [address] PCP - General Family Medicine 07/07/16 documented as of this encounter
--- OUTSIDE RECORDS SUMMARY | 2023-10-01 21:29 | XMS_ITS | Encounter Summary ---
[place] [address] Care Team Providers Care Doorkeeper Name Role Phone Yumiko Tavarez MD Primary Care Provider [phone] Encounter Details Date Type Department Care Team (Late st Contact Info) Description 11/20/2018 [place] [address] Razia Mims MD [facility] [place] [address] Preventive measure Social History Tobacco Use Types [...] Preventive measure Unspecified prophylactic or treatment measure documented in this encounter Care Teams Doorkeeper Relationship Specialty Start Date End Date Yumiko Tavarez MD [address] [place] [address] PCP - General Family Medicine 07/07/16 documented as of this encounter
--- OUTSIDE RECORDS SUMMARY | 2023-10-01 21:29 | XMS_ITS | Encounter Summary ---
[place] [address] Care Team Providers Care High Man Name Role Phone Yumiko Tavarez MD Primary Care Provider [phone] Encounter Details Date Type Department Care Team (Late st Contact Info) Description 10/10/2018 [place] [address] Razia Mims MD [facility] [place] [address] Social History Tobacco Use Types Packs/Day Years [...] filedocumented in this encounter Care Teams High Man Relationship Specialty Start Date End Date Yumiko Tavarez MD [address] [place] [address] PCP - General Family Medicine 07/07/16 documented as of this encounter
--- OUTSIDE RECORDS SUMMARY | 2023-10-01 21:29 | XMS_ITS | Encounter Summary ---
[place] [address] Care Team Providers Care Welt Edge Rounder Name Role Phone Yumiko Tavarez MD Primary Care Provider [phone] Encounter Details Date Type Department Care Team (Late st Contact Info) Description 08/12/2018 [place] [address] Razia Mims MD [facility] [place] [address] Social History Tobacco Use Types Packs/Day Years [...] on filedocumented in this encounter Care Teams Welt Edge Rounder Relationship Specialty Start Date End Date Yumiko Tavarez MD [address] [place] [address] PCP - General Family Medicine 07/07/16 documented as of this encounter
--- OUTSIDE RECORDS SUMMARY | 2023-10-01 21:29 | XMS_ITS | Encounter Summary ---
Author Organization [facility] [place] [address] Care Team Providers Care Marinator Name Role Phone Serafin Glass MD Primary Care Provider + Encounter Details Date Type Department Care Team (Late st Contact Info) Description 07/23/2012 Orders [place] [address] Marty Nick MD [facility] [place] [address] Social History Tobacco Use Types Packs/Day Years [...] is a Non-reportable exam Marty Nick MD [facility] FILM LIBRARY ORDERABLES documented in this encounter Visit Diagnoses Not on filedocumented in this encounter Care Teams Marinator Relationship Specialty Start Date End Date Serafin Glass MD [address] [place] [address] PCP - General 01/25/10 07/06/16 documented as of this encounter
--- OUTSIDE RECORDS SUMMARY | 2023-10-01 21:29 | XMS_ITS | Encounter Summary ---
[place] [address] Care Team Providers Care Moth Proofer Name Role Phone Yumiko Tavarez MD Primary Care Provider [phone] Encounter Details Date Type Department Care Team (Late st Contact Info) Description 08/12/2018 [place] [address] Razia Mims MD [facility] [place] [address] Social History Tobacco Use Types Packs/Day Years [...] on filedocumented in this encounter Care Teams Moth Proofer Relationship Specialty Start Date End Date Yumiko Tavarez MD [address] [place] [address] PCP - General Family Medicine 07/07/16 documented as of this encounter
--- OUTSIDE RECORDS SUMMARY | 2023-10-01 21:29 | XMS_ITS | Encounter Summary ---
[place] [address] Care Team Providers Care Rn Plastics Name Role Phone Yumiko Tavarez MD Primary Care Provider [phone] Encounter Details Date Type Department Care Team (Late st Contact Info) Description 03/26/2019 [place] [address] Razia Mims MD [facility] [place] [address] Social History Tobacco Use Types Packs/Day Years [...] filedocumented in this encounter Care Teams Rn Plastics Relationship Specialty Start Date End Date Yumiko Tavarez MD [address] [place] [address] PCP - General Family Medicine 07/07/16 documented as of this encounter
--- OUTSIDE RECORDS SUMMARY | 2023-10-01 21:29 | XMS_ITS | Encounter Summary ---
Author Organization [facility] [place] [address] Care Team Providers Care Clinical Sociologist Name Role Phone Yumiko Tavarez MD Primary Care Provider [phone] Reason for Visit * Reason Onset Date Comments Medication Refill 03/03/2019 Encounter Details Date Type Department Care Team (Late st Contact Info) Description 03/03/2019 [place] [address] Razia Mims MD [facility] [place] [address] Social History Tobacco Use Types Packs/Day Years [...] filedocumented in this encounter Care Teams Clinical Sociologist Relationship Specialty Start Date End Date Yumiko Tavarez MD [address] [place] [address] PCP - General Family Medicine 07/07/16 documented as of this encounter
--- OUTSIDE RECORDS SUMMARY | 2023-10-01 21:29 | XMS_ITS | Encounter Summary ---
Author Organization [facility] [place] [address] Care Team Providers Care Customer Account Manager Name Role Phone Yumiko Tavarez MD Primary Care Provider [phone] Reason for Visit * Reason Onset Date Comments Medication Refill 04/02/2019 Encounter Details Date Type Department Care Team (Late st Contact Info) Description 04/02/2019 [place] [address] Razia Mims MD [facility] [place] [address] Social History Tobacco Use Types Packs/Day Years [...] on filedocumented in this encounter Care Teams Customer Account Manager Relationship Specialty Start Date End Date Yumiko Tavarez MD [address] [place] [address] PCP - General Family Medicine 07/07/16 documented as of this encounter
--- OUTSIDE RECORDS SUMMARY | 2023-10-01 21:29 | XMS_ITS | Encounter Summary ---
[place] [address] Care Team Providers Care Tree Planter Name Role Phone Yumiko Tavarez MD Primary Care Provider [phone] Reason for Visit * Diagnostic Test (Routine) - Closed Specialty Diagnoses / Procedures Referred By Contpayam t Referred To Contact Radiology Diagnoses Tremors of nervous system Procedures NM IRMA Scan Razia Mims MD [facility] [place] [address] [place] [address] Referral ID Status Reason Start Date Expiration Date V isits Requested Visits Authorized [id number] Closed Specialty Service Requested 12/18/2016 12/18/2017 3 3 Encounter Details Date Type Department Care Team (Latest Contact Info) Description 01/10/2017 2:32 PM EST - 01/10/2017 11:59 PM [facility] Hospital Encounter [place] [address] Razia Mims MD [facility] [place] [address] Discharge Disposition: Home Social History Tobacco Use [...] the right caudate and putamen. Procedure Note Osacr Le MD - 01/10/2017 EXAMINATION: NM IRMA [...] at 01/10/2017 4:30 PM Razia Mims MD [facility] [place] ORDER[place]LES documented in this encounter Visit Diagnoses Not on filedocumented in this encounter Care Teams Tree Planter Relationship Specialty Start Date End Date Yumiko Tavarez MD [address] [place] [address] PCP - General Family Medicine 07/07/16 documented as of this encounter
--- OUTSIDE RECORDS SUMMARY | 2023-10-01 21:29 | XMS_ITS | Encounter Summary ---
Author [place] [address] Care Team Providers Care Policy Service Coordinator Name Role Phone Yumiko Tavarez MD Primary Care Provider [phone] Encounter Details Date Type Department Care Team (Late st Contact Info) Description 11/20/2016 1:40 PM EDT Laboratory Appointment Lab [address] [place] [id number] Chorea Social History Tobacco Use Types Packs/Day [...] Chorea documented in this encounter Results * [facility] Test-Ringle (11/20/2016 1:50 PM EDT) [facility] Jones Test ?Result ? Flag ??Unit ??RefValue Gove Disease Analysis ??Result Summary ?NEGATIVE ??Result ?CAG repeat: 17 and 18 (Normal) ??Interpretation ?SEE COMMENTS ?This result suggests that this individual is very unlikely ?to have Gove disease (HD). To date, alterations other ?than [...] penetrance: >39 ?An online research opportunity called Mammotome ?(Reble.RIISnet ), a project of [employer], is available for ?the recipient of this genetic test. This patient registry ?collects de-identified genetic and health information to ?advance the knowledge of genetic variants. [facility] is a ?collaborator of [employer]. This may not be applicable for all [...] allogenic donors will ?interfere with testing. Call [facility] [employer] for ?instructions for testing patients who have [...] SEE COMMENTS ?Evaluation for a diagnosis of Gove disease (HD). Test ?for the presence of an expansion in the HTT gene. ??Specimen ?WB Whole Blood ??Released By ? Angelica Crawford M.D. ?Test Performed by: ?[facility] ?[address] LABORATORY Blood specimen (specimen) Venous Draw / Unknown 11/20/2016 1:50 PM EDT 11/20/2016 4:05 PM EDT Narrative Resulting Agency Comment Spec In Lab Razia Mims MD CHEMISTRY ORDERABL ES [facility] [place] [address] * Differential, Automated (11/20/2016 1:49 PM EDT) Neutrophils % 49.9 % [facility] Neutr Abs (ANC) 3.35 1.70 - 6.10 x10(3)/[facility] LABORATORY Lymphocytes % 43.5 % [facility] Lymphocytes Abs 2.9 0.9 - 3.2 x10(3)/[facility] LABORATORY Monocytes % 5.6 % [facility] Monocyte Abs 0.4 0.3 - 0.9 x10(3)/[facility] LABORATORY Eosinophils % 0.6 % [facility] Eosinophils Abs 0.0 0.0 - 0.4 x10(3)/[facility] LABORATORY Basophils % 0.3 % [facility] Basophils Abs 0.0 0.0 - 0.1 x10(3)/[facility] LABORATORY Immature Gran % 0.10 % [facility] Comment: Immature granulocytes(IG's)percentage and absolute count will include metamyelocytes, myelocytes, and promyelocytes. Blood smears from CBCs yielding IG's will be scanned manually for concordance. If this scan disagrees with the automated IG or if promyelocytes are noted, a manual differential will be performed. Kimberly Gran Abs 0.01 0.00 - 0.04 x10(3)/[facility] LABORATORY Blood specimen (specimen) 11/20/2016 1:49 PM EDT 11/20/2016 2:01 PM EDT Narrative Resulting Agency Comment Spec In Lab Razia Mims MD HEMATOLOGY ORDERAB LES [facility] [place] [address] * (ABNORMAL) Hemogram (11/20/2016 1:49 PM EDT) WBC 6.7 4.0 - 9.5 x10(3)/[facility] LABORATORY RBC 3.99(L) 4.00 - 5.21 x10(6)/[facility] LABORATORY Hemoglobin 12.8 11.7 - 15.5 gm/dL [facility] Hematocrit 37.4 35.7 - 45.8 % [facility] MCV 93.7 82.6 - 94.4 fL [facility] MCH 32.1(H) 27.1 - 32.0 pg [facility] MCHC 34.2 31.7 - 35.0 gm/dL [facility] Platelets 262 145 - 357 x10(3)/[facility] LABORATORY RDWSD 38.8 37.0 - 46.0 [facility] LABORATORY RDWCV 11.4(L) 11.5 - 14.1 % [facility] MPV 10.3 7.6 - 12.9 [facility] LABORATORY nRBC % Auto 0.0 % [facility] nRBC Abs Auto 0.000 0.000 - 0.000 x10(3)/[facility] LABORATORY Blood specimen (specimen) 11/20/2016 1:49 PM EDT 11/20/2016 2:01 PM EDT Narrative Resulting Agency Comment Spec In Lab Razia Mims MD HEMATOLOGY ORDERAB LES Performing Organization Address [facility] Co de Phone Number [facility] [place] [address] * Lyme IgG & IgM Antibody (11/20/2016 1:49 PM EDT) Lyme Screening Antibody Neg Neg [facility] Blood specimen (specimen) 11/20/2016 1:49 PM EDT 11/21/2016 8:31 AM EDT Narrative Resulting Agency Comment Spec In Lab Razia Mims MD IMMUNOLOGY ORDERAB LES Performing Organization Address [facility] Co de Phone Number [facility] [place] [address] * Ceruloplasmin (11/20/2016 1:49 PM EDT) Ceruloplasmin 37.5 16.0 - 45.0 mg/dL [facility] Blood specimen (specimen) 11/20/2016 1:49 PM EDT 11/20/2016 2:01 PM EDT Narrative Resulting Agency Comment Spec In Lab Razia Mims MD CHEMISTRY ORDERABL ES Performing Organization Address City/[facility] Co de Phone Number [facility] [place] [address] * Miscellaneous Lab request (11/20/2016 1:49 PM EDT) Pathologist [facility] Misc Lab Result Request received in lab. [facility] Blood specimen (specimen) 11/20/2016 1:49 PM EDT 11/20/2016 2:01 PM EDT Narrative Resulting Agency Comment Spec In Lab Razia Mims MD HEMATOLOGY ORDERAB LES Performing Organization Address [facility] Co de Phone Number [facility] [place] [address] * Streptococcal Antibody Panel (11/20/2016 1:49 PM EDT) [facility] ASO Titer 44 0 - 530 IU/mL [facility] Comment: Test Performed by: [facility] [address] [place] [address] DNase B Ab <74 0 - 300 unit/mL [facility] Comment: Test Performed by: [facility] [address] [place] [address] Blood specimen (specimen) 11/20/2016 1:49 PM EDT 11/20/2016 4:01 PM EDT Narrative Resulting Agency Comment Spec In Lab Razia Mims MD IMMUNOLOGY ORDERAB LES Performing Organization Address City/[facility]/ZIP Co de Phone Number [facility] [place] [address] * C4 Complement (11/20/2016 1:49 PM EDT) [facility] C4 Complement 27 10 - 40 mg/dL [facility] Blood specimen (specimen) 11/20/2016 1:49 PM EDT 11/20/2016 2:01 PM EDT Narrative Resulting Agency Comment Spec In Lab Razia Mims MD CHEMISTRY ORDERABL ES Performing Organization Address City/[facility]/ZIP Co de Phone Number [facility] [place] [address] * C3 Complement (11/20/2016 1:49 PM EDT) C3 Complement 119 90 - 180 mg/dL [facility] Blood specimen (specimen) 11/20/2016 1:49 PM EDT 11/20/2016 2:01 PM EDT Narrative Resulting Agency Comment Spec In Lab Razia Mims MD CHEMISTRY ORDERABL ES Performing Organization Address [facility]/ZIP Co de Phone Number [facility] [place] [address] * T4, free (11/20/2016 1:49 PM EDT) Free T4 1.04 0.93 - 1.70 ng/dL [facility] Blood specimen (specimen) 11/20/2016 1:49 PM EDT 11/20/2016 2:01 PM EDT Narrative Resulting Agency Comment Spec In Lab Razia Mims MD CHEMISTRY ORDERABL ES Performing Organization Address [facility]/ZIP Co de Phone Number [facility] [place] [address] * ARMEN (11/20/2016 1:49 PM EDT) ARMEN Neg Neg [facility] Blood specimen (specimen) 11/20/2016 1:49 PM EDT 11/21/2016 7:30 AM EDT Narrative Resulting Agency Comment Spec In Lab Razia Mims MD IMMUNOLOGY ORDERAB LES Performing Organization Address [facility]/ZIP Co de Phone Number [facility] [place] [address] * Cardiolipin Antibody Screen (11/20/2016 1:49 PM EDT) Cardiolipin IgG <23 <=22 GPL unit(s) [facility] Comment: Ranges ? GPL ------- ? ------ Normal ?<23 Low Positive ? 23-35 Moderate Positive ?36-50 High Positive ? >50 Cardiolipin IgM <11 <=10 MPL unit(s) [facility] Comment: Ranges ?MPL ----- ?----- Normal ?<11 Low Positive ? 11-20 Moderate Positive ?21-30 High Positive ? >30 Blood specimen (specimen) 11/20/2016 1:49 PM EDT 11/21/2016 7:30 AM EDT Narrative Resulting Agency Comment Spec In Lab Razia Mims MD IMMUNOLOGY ORDERAB LES [facility] [place] [address] * (ABNORMAL) Comprehensive metabolic panel (non-fasting) (11/20/2016 1:49 PM EDT) Glucose Lvl 85 65 - 199 mg/dL [facility] Comment:Diabetes: >=200 mg/d L plus symptoms BUN 18 8 - 18 mg/dL [facility] Creatinine 1.12 0.70 - 1.20 mg/dL [facility] Comment: Please note that the pediatric reference intervals supplied above were not validated at [facility]. Results from pediatric patients should be interpreted in conjunction to the patient's age, height and muscle mass. Sodium 141 135 - 145 mmol/L [facility] Potassium 3.8 3.5 - 5.0 mmol/L [facility] Comment: Please note: ??Patients with WBC >100,000 may have falsely elevated Potassium levels. ??For accurate Potassium quantification in these patients send serum separator tube (gold top) for subsequent determinations. ??Contact the Clinical Chemistry Laboratory if there are any questions. Chloride 99 98 - 107 mmol/L [facility] CO2 31 22 - 31 mmol/L [facility] Anion Gap 11 5 - 15 mmol/L [facility] Calcium 9.6 8.5 - 10.5 mg/dL [facility] Total Protein 7.5 6.1 - 8.0 gm/dL [facility] Albumin 4.2 3.2 - 5.2 gm/dL [facility] AST 17 0 - 30 unit/L [facility] ALT 11 0 - 30 unit/L [facility] Alk Phos 53 40 - 104 unit/L [facility] Total Bilirubin 0.2 0.2 - 1.3 mg/dL [facility] Estimated GFR 51(L) >=60 [facility] Comment: This estimated GFR (eGFR) [...] the following links into your internet browser. [email or web address] Blood specimen (specimen) 11/20/2016 1:49 PM EDT 11/20/2016 2:01 PM EDT Narrative Resulting Agency Comment Spec In Lab Razia Mims MD CHEMISTRY ORDERABL ES [facility] [place] [address] documented in this encounter Visit Diagnoses Diagnosis Chorea Other choreas documented in this encounter Care Teams Policy Service Coordinator Relationship Specialty Start Date End Date Yumiko Tavarez MD [address] [place] [address] PCP - General Family Medicine 07/07/16 documented as of this encounter
--- OUTSIDE RECORDS SUMMARY | 2023-10-01 21:29 | XMS_ITS | Encounter Summary ---
[place] [address] Care Team Providers Care History Professor Name Role Phone Yumiko Tavarez MD Primary Care Provider Reason for Visit * Diagnostic Test (Routine) - Closed Specialty Diagnoses / Procedures Referred By Contpayam t Referred To Contact Radiology Diagnoses Tremors of nervous system Procedures NM IRMA Scan Razia Mims MD [facility] [place] [address] [place] [address] Referral ID Status Reason Start Date Expiration Date V isits Requested Visits Authorized [id number] Closed Specialty Service Requested 12/18/2016 12/18/2017 3 3 Encounter Details Date Type Department Care Team (Latest Contact Info) Description 01/10/2017 9:57 AM EST - 01/10/2017 2:31 PM [facility] Hospital Encounter [place] [address] Razia Mims MD [facility] [address] Discharge Disposition: Home Social History [...] mCi documented in this encounter Care Teams History Professor Relationship Specialty Start Date End Date Yumiko Tavarez MD [address] [place] [address] PCP - General Family Medicine 07/07/16 documented as of this encounter
--- OUTSIDE RECORDS SUMMARY | 2023-10-01 21:29 | XMS_ITS | Encounter Summary ---
[place] [address] Care Team Providers Care Apartment Locator Name Role Phone Yumiko Tavarez MD Primary Care Provider [phone] Encounter Details Date Type Department Care Team (Late st Contact Info) Description 01/11/2017 [place] [address] Razia Mims MD [facility] [place] [address] Social History Tobacco Use Types Packs/Day Years [...] appointment moved to February. Razia Mims MD [facility] Neurology-Movement Disorders documented in this encounter Plan of Treatment Not on file documented as of this encounter Visit Diagnoses Not on filedocumented in this encounter Care Teams Apartment Locator Relationship Specialty Start Date End Date Yumiko Tavarez MD [address] [place] [address] PCP - General Family Medicine 07/07/16 documented as of this encounter
--- OUTSIDE RECORDS SUMMARY | 2023-10-01 21:29 | XMS_ITS | Encounter Summary ---
Author Organization [facility] [place] [address] Care Team Providers Care Kiln Operator Helper Name Role Phone Yumiko Tavarez MD Primary Care Provider [phone] Reason for Visit * Reason Onset Date Comments Other 02/04/2019 tetrabenazine Encounter Details Date Type Department Care Team (Late st Contact Info) Description 02/04/2019 [place] [address] Razia Mims MD [facility] [place] [address] Other (tetrabenazine) Social History Tobacco Use Types [...] EST [facility] 02/13/19 at 2:02 pm to fax number [phone]. * Telephone Encounter - Whit Juares - 02/13/2019 12:05 PM EST [facility] called to ask that pt's insurance information and the clinicals regarding the medication be faxed to [phone]. * Telephone Encounter - Nishi Gee RN - 02/12/2019 2:22 PM EST Tetrabenazine order form faxed to [employer] [facility] on 02/12/19 at 2:23 pm to fax number [phone].Copy sent to medical records to be scanned [...] Red - 02/05/2019 4:36 PM EST Clinical Health Informatics Instructor Message Caller: Miguelina Bradford not Pt / Relation to pt: Call back Number: [phone] Reason for call: Pt states that she [...] Red - 02/04/2019 4:09 PM EST Clinical Health Informatics Instructor Message Caller: Miguelina Bradford not Pt / Relation to pt: Call back Number: [phone] Reason for call: Pts medication Message/information for [...] on filedocumented in this encounter Care Teams Kiln Operator Helper Relationship Specialty Start Date End Date Yumiko Tavarez MD [address] [place] [address] PCP - General Family Medicine 07/07/16 documented as of this encounter
--- OUTSIDE RECORDS SUMMARY | 2023-10-01 21:29 | XMS_ITS | Encounter Summary ---
[place] [address] Care Team Providers Care Forest Fire Control Officer Name Role Phone Yumiko Tavarez MD Primary Care Provider [phone] Encounter Details Date Type Department Care Team (Late st Contact Info) Description 11/03/2016 Orders [place] [address] Frank Jovel Social History Tobacco Use Types [...] on filedocumented in this encounter Care Teams Forest Fire Control Officer Relationship Specialty Start Date End Date Yumiko Tavarez MD [address] [place] [address] PCP - General Family Medicine 07/07/16 documented as of this encounter
--- OUTSIDE RECORDS SUMMARY | 2023-10-01 21:29 | XMS_ITS | Encounter Summary ---
Author Organization [place] [address] Care Team Providers Care Fagot Heater Helper Name Role Phone Yumiko Tavarez MD Primary Care Provider [phone] Reason for Visit * Reason Onset Date Comments Prior Authorization 01/22/2019 XENAZINE 12. 5 MG #60 APPROVED 01/29/19-05/01/19 Encounter Details Date Type Department Care Team (Late st Contact Info) Description 01/22/2019 [place] [address] Razia Mims MD [facility] [place] [address] Prior Authorization (XENAZINE 12.5 MG #60 APPROVED [...] included. FORM FILLED OUT AND FAXED TO [employer] ACCESS. [phone] ~abnormal involuntary movements. When I initially saw [...] Red - 01/22/2019 4:56 PM EST Clinical Senior Restaurant Manager Call Caller: Miguelina If not Pt / Relation to pt: Call back number: [phone] Extension for call back number if appropriate: Medication requiring PA: Tetrabenazine Parmacy Benefits/Coverage Company: [facility] [facility] Pharmacy Benefits/Coverage ID #: [id number] Pharmacy Benefits/Coverage Company Pharmacy used by patient: [facility] location: [facility] Patients BIN#: PCN# : Disposition of Call: documented in this encounter Plan of Treatment Not on file documented as of this encounter Visit Diagnoses Not on filedocumented in this encounter Care Teams Fagot Heater Helper Relationship Specialty Start Date End Date Yumiko Tavarez MD [address] [place] [address] PCP - General Family Medicine 07/07/16 documented as of this encounter
--- OUTSIDE RECORDS SUMMARY | 2023-10-01 21:29 | XMS_ITS | Encounter Summary ---
[place] [address] Care Team Providers Care Itinerant Teacher Assistant Name Role Phone Yumiko Tavarez MD Primary Care Provider Encounter Details Date Type Department Care Team (Late st Contact Info) Description 10/08/2018 [place] [address] Razia Mims MD [facility] [place] [address] Social History Tobacco Use Types Packs/Day Years [...] on filedocumented in this encounter Care Teams Itinerant Teacher Assistant Relationship Specialty Start Date End Date Yumiko Tavarez MD [address] [place] [address] PCP - General Family Medicine 07/07/16 documented as of this encounter
--- OUTSIDE RECORDS SUMMARY | 2023-10-01 21:29 | XMS_ITS | Encounter Summary ---
Author Organization [facility] Address [facility] [address] Care Team Providers Care Benefits Assistant Name Role Phone Yumiko Tavarez MD Primary Care Provider [phone] Reason for Referral * Speech Therapy (Routine) - Specialty Diagnoses / Procedures Referred By Warren dennis Referred To Contact Neurology Diagnoses Primary parkinsonism Razia Mims MD [facility] [place] [address] Referral ID Status Reason Start Date Expiration Date V isits Requested Visits Authorized [id number] Evaluate and Treat 01/20/2020 07/18/2020 12 12 Encounter Details Date Type Department Care Team (Late st Contact Info) Description 01/20/2020 10:00 AM EST [place] [address] Razia Mims MD [facility] [place] [address] Kartik Delgadillo, [employer] LABORATORY PROFESSIONAL [facility] [place] [address] Primary Parkinsonism; Chorea Social History Tobacco Use [...] Mims MD - 01/20/2020 10:00 AM EST [facility] Movement Disorders Follow Up Patient Evaluation Date of service 01/20/2020 Referring provider Yumiko Tavarez MD [address] [place] [address] Cc: tremor History of present illness Miguelina [...] , Rfl: ??? naloxone (NARCAN) 4 mg/actuation [place], Non-Aerosol, 1 spray by Nasal route as [...] tablet, Rfl: 11 Social History: Lives in [facility], she is retired from [employer]. Remote history of cocaine use (2 times [...] a second opinion with Destini Mims MD [facility] Neurology-Movement Disorders documented in this encounter Plan of Treatment Scheduled Referrals Name Type Priority Associated Diagnoses Orde r Schedule Referral to Speech Therapy Outpatient Referral Routine Primary Parkinsonism Ordered: 01/20/2020 documented as of this encounter Visit Diagnoses Diagnosis Primary parkinsonism Paralysis agitans Chorea Other choreas documented in this encounter Care Teams Benefits Assistant Relationship Specialty Start Date End Date Yumiko Tavarez MD [address] [place] [address] PCP - General Family Medicine 07/07/16 documented as of this encounter
--- OUTSIDE RECORDS SUMMARY | 2023-10-01 21:29 | XMS_ITS | Encounter Summary ---
Author Organization [facility] [place] [address] Care Team Providers Care Import Export Clerk Name Role Phone Yumiko Tavarez MD Primary Care Provider Encounter Details Date Type Department Care Team (Late st Contact Info) Description 09/12/2018 11:00 AM EDT [place] [address] Razia Mims MD [facility] DR NEUROLOGY [place] [address] Primary Parkinsonism Social History Tobacco Use Types [...] Mims MD - 09/12/2018 11:00 AM EDT [facility] Movement Disorders Follow Up Patient Evaluation Date of service 09/12/2018 Referring provider Yumiko Tavarez MD [address] [place] [address] Cc: tremor History of present illness Miguelina [...] , Rfl: ??? naloxone (NARCAN) 4 mg/actuation [place], Non-Aerosol, 1 spray by Nasal route as [...] Disp: , Rfl: Social History: Lives in [facility], she is retired from [employer]. Remote history of cocaine use (2 times [...] or other genetic testing Razia Mims MD [facility] Neurology-Movement Disorders documented in this encounter Plan of Treatment Not on file documented as of this encounter Visit Diagnoses Diagnosis Primary parkinsonism Paralysis agitans documented in this encounter Care Teams Import Export Clerk Relationship Specialty Start Date End Date Yumiko Tavarez MD [address] [place] [address] PCP - General Family Medicine 07/07/16 documented as of this encounter
--- OUTSIDE RECORDS SUMMARY | 2023-10-01 21:29 | XMS_ITS | Encounter Summary ---
[place] [address] Care Team Providers Care Deicer Finisher Name Role Phone Yumiko Tavarez MD Primary Care Provider [phone] Encounter Details Date Type Department Care Team (Late st Contact Info) Description 05/10/2018 [place] [address] Razia Mims MD [facility] [place] [address] Social History Tobacco Use Types Packs/Day Years [...] Salazar - 05/10/2018 9:32 AM EST Clinical [place] Message Caller: Miguelina If not Pt / Relation to pt: Call back Number: [phone] Best time to reach caller: Anytime Reason [...] on filedocumented in this encounter Care Teams Deicer Finisher Relationship Specialty Start Date End Date Yumiko Tavarez MD [address] [place] [address] PCP - General Family Medicine 07/07/16 documented as of this encounter
--- OUTSIDE RECORDS SUMMARY | 2023-10-01 21:29 | XMS_ITS | Encounter Summary ---
Author Organization [facility] [place] [address] Care Team Providers Care Early Childhood Teacher Assistant Name Role Phone Yumiko Tavarez MD Primary Care Provider [phone] Reason for Visit * Reason Onset Date Comments Medication Refill 01/21/2019 Encounter Details Date Type Department Care Team (Late st Contact Info) Description 01/21/2019 [place] [address] Razia Mims MD [facility] [place] [address] Social History Tobacco Use Types Packs/Day Years [...] on filedocumented in this encounter Care Teams Early Childhood Teacher Assistant Relationship Specialty Start Date End Date Yumiko Tavarez MD [address] [place] [address] PCP - General Family Medicine 07/07/16 documented as of this encounter
--- OUTSIDE RECORDS SUMMARY | 2023-10-01 21:29 | XMS_ITS | Encounter Summary ---
Author Organization [facility] [place] [address] Care Team Providers Care Print Binding Worker Name Role Phone Yumiko Tavarez MD Primary Care Provider [phone] Encounter Details Date Type Department Care Team (Late st Contact Info) Description 03/11/2018 2:30 PM EST [place] [address] Razia Mims MD [facility] [place] [address] Primary Parkinsonism; Weight gain Social History Tobacco [...] Mims MD - 03/11/2018 2:30 PM EST [facility] Movement Disorders Follow Up Patient Evaluation Date of service 03/11/2018 Referring provider Yumiko Tavarez MD [address] [place] [address] Cc: tremor History of present illness Miguelina [...] , Rfl: ??? naloxone (NARCAN) 4 mg/actuation [place], Non-Aerosol, by Nasal route as needed., Disp: [...] tablet, Rfl: 11 Social History: Lives in [facility] [facility] [place], she is retired from [employer]. Remote history of cocaine use Review of [...] - TSH, T4 today Razia Mims MD [facility] Neurology-Movement Disorders documented in this [...] Free T4 0.92(L) 0.93 - 1.70 ng/dL [facility] Blood specimen (specimen) 03/11/2018 3:33 PM EST 03/11/2018 3:42 PM EST Narrative Resulting Agency Comment Spec In Lab Razia Mims MD CHEMISTRY ORDERABL ES Performing Organization Address [facility] Co de Phone Number [facility] [place] [address] * TSH (03/11/2018 3:33 PM EST) TSH 0.81 0.27 - 4.20 mlU/ML [facility] Blood specimen (specimen) 03/11/2018 3:33 PM EST 03/11/2018 3:42 PM EST Narrative Resulting Agency Comment Spec In Lab Razia Mims MD CHEMISTRY ORDERABL ES Performing Organization Address [facility] Co de Phone Number [facility] [place] [address] documented in this encounter Visit Diagnoses Diagnosis Primary parkinsonism Paralysis agitans Weight gain Abnormal weight gain documented in this encounter Care Teams Print Binding Worker Relationship Specialty Start Date End Date Yumiko Tavarez MD [address] [place] [address] PCP - General Family Medicine 07/07/16 documented as of this encounter
--- OUTSIDE RECORDS SUMMARY | 2023-10-01 21:29 | XMS_ITS | Encounter Summary ---
Author Organization [facility] Address [facility] [place] [address] Care Team Providers Care Trauma Coordinator Name Role Phone Yumiko Tavarez MD Primary Care Provider [phone] Reason for Visit * Reason Onset Date Comments Other 11/08/2018 Encounter Details Date Type Department Care Team (Late st Contact Info) Description 11/08/2018 [place] [id number] Razia Mims MD [facility] [place] [address] Other Social History Tobacco Use Types Packs/Day [...] can order it but she lives in [place], [place] so I am wondering if she has a local hospital where she would want us to send the order. Miguelina says she can use [facility]/. Patient also says that she has had [...] list. Prepped EKG order to go to [facility], will forward to physician. * Telephone Encounter [...] Solo - 11/08/2018 3:19 PM EDT Clinical [place] Message Caller: Miguelina Call back Number: [phone] Reason for call: patient calling to give [...] condition documented in this encounter Care Teams Trauma Coordinator Relationship Specialty Start Date End Date Yumiko Tavarez MD [address] [place] [address] PCP - General Family Medicine 07/07/16 documented as of this encounter
--- OUTSIDE RECORDS SUMMARY | 2023-10-01 21:29 | XMS_ITS | Encounter Summary ---
Author Organization [place] [address] Care Team Providers Care Erp Developer Name Role Phone Yumiko Tavarez MD Primary Care Provider [phone] Reason for Visit * Reason Onset Date Comments Medication Refill 01/22/2017 Encounter Details Date Type Department Care Team (Late st Contact Info) Description 01/22/2017 [place] [address] Razia Mims MD [facility] [place] [address] Social History Tobacco Use Types Packs/Day Years [...] on filedocumented in this encounter Care Teams Erp Developer Relationship Specialty Start Date End Date Yumiko Tavarez MD [address] [place] [address] PCP - General Family Medicine 07/07/16 documented as of this encounter
--- OUTSIDE RECORDS SUMMARY | 2023-10-01 21:29 | XMS_ITS | Encounter Summary ---
[place] [address] Care Team Providers Care Perl Software Engineer Name Role Phone Yumiko Tavarez MD Primary Care Provider [phone] Encounter Details Date Type Department Care Team (Late st Contact Info) Description 05/12/2018 Orders [place] [address] Razia Mims MD [facility] [place] [address] Social History Tobacco Use Types Packs/Day Years [...] on filedocumented in this encounter Care Teams Perl Software Engineer Relationship Specialty Start Date End Date Yumiko Tavarez MD [address] [place] [address] PCP - General Family Medicine 07/07/16 documented as of this encounter
--- OUTSIDE RECORDS SUMMARY | 2023-10-01 21:29 | XMS_ITS | Encounter Summary ---
Author Organization [facility] [place] [address] Care Team Providers Care Beef Splitter Name Role Phone Serafin Glass MD Primary Care Provider + Encounter Details Date Type Department Care Team (Late st Contact Info) Description 02/23/2011 Orders Only [place] [address] Marty Nick MD [facility] [place] [address] Social History Tobacco Use Types Packs/Day Years [...] on filedocumented in this encounter Care Teams Beef Splitter Relationship Specialty Start Date End Date Serafin Glass MD [address] [place] [address] PCP - General 01/25/10 07/06/16 documented as of this encounter
--- OUTSIDE RECORDS SUMMARY | 2023-10-01 21:29 | XMS_ITS | Encounter Summary ---
Author Organization [place] [address] Care Team Providers Care International Relations Professor Name Role Phone Serafin Glass MD Primary Care Provider + Encounter Details Date Type Department Care Team (Late st Contact Info) Description 12/05/2005 Orders Only [place] [address] Marty Nick MD [facility] [place] [address] Social History Tobacco Use Types Packs/Day Years [...] is a Non-reportable exam Marty Nick MD [facility] FILM LIBRARY ORDERABLES documented in this encounter Visit Diagnoses Not on filedocumented in this encounter Care Teams International Relations Professor Relationship Specialty Start Date End Date Serafin Glass MD [address] [place] [address] PCP - General 01/25/10 07/06/16 documented as of this encounter
--- OUTSIDE RECORDS SUMMARY | 2023-10-01 21:29 | XMS_ITS | Encounter Summary ---
Author Organization [facility] [place] [address] Care Team Providers Care Director Trade Name Role Phone Serafin Glass MD Primary Care Provider + Encounter Details Date Type Department Care Team (Late st Contact Info) Description 01/12/2011 Orders [place] [address] Marty Nick MD [facility] [place] [address] Social History Tobacco Use Types Packs/Day Years [...] filedocumented in this encounter Care Teams Director Trade Relationship Specialty Start Date End Date Serafin Glass MD [address] [place] [address] PCP - General 01/25/10 07/06/16 documented as of this encounter
--- OUTSIDE RECORDS SUMMARY | 2023-10-01 21:29 | XMS_ITS | Encounter Summary ---
Author Organization [facility] [place] [address] Care Team Providers Care Toolmaker Grade Three Name Role Phone Unavailable Primary Care Provider Unavailabl e Encounter Details Date Type Department Care Team (Latest Contact Info) Description 06/12/2007 - 06/12/2007 11:59 PM EDT Hospital Encounter [place] [address] Yumiko Tavarez MD [address] [place] [address] Pain Discharge Disposition: Home Social History Tobacco [...] only and is auto-finalizing. Yumiko Tavarez MD [facility] ORD ERABLES [place], [place] documented in this encounter Visit Diagnoses Diagnosis Pain Generalized pain documented in this encounter
--- OUTSIDE RECORDS SUMMARY | 2023-10-01 21:29 | XMS_ITS | Encounter Summary ---
[place] [address] Care Team Providers Care Battery Mechanic Name Role Phone Yumiko Tavarez MD Primary Care Provider [phone] Reason for Referral * Diagnostic Test (Routine) - Closed Specialty Diagnoses / Procedures Referred By Contac t Referred To Contact Radiology Diagnoses Chorea Procedures MRI Brain wo Contrast Razia Mims MD [facility] [place] [address] [place] [address] Referral ID Status Reason Start Date Expiration Date V isits Requested Visits Authorized [id number] Closed Specialty Service Requested 11/07/2016 02/05/2017 1 1 Reason for Visit * Diagnostic Test (Routine) - Closed Specialty Diagnoses / Procedures Referred By Contac t Referred To Contact Radiology Diagnoses Chorea Procedures MRI Brain wo Contrast Razia Mims MD [facility] [place] [address] [place] [address] Referral ID Status Reason Start Date Expiration Date V isits Requested Visits Authorized [id number] Closed Specialty Service Requested 11/07/2016 02/05/2017 1 1 Encounter Details Date Type Department Care Team (Latest Contact Info) Description 11/20/2016 1:54 PM EDT - 11/20/2016 11:59 PM EDT [place] [address] Razia Mims MD [facility] [place] [address] Chorea Discharge Disposition: Home Social History Tobacco [...] study. Razia Mims MD IM MRI ORDERABLES documented in this encounter Visit Diagnoses Diagnosis Chorea Other choreas documented in this encounter Care Teams Battery Mechanic Relationship Specialty Start Date End Date Yumiko Tavarez MD [address] [place] [address] PCP - General Family Medicine 07/07/16 documented as of this encounter
--- OUTSIDE RECORDS SUMMARY | 2023-10-01 21:29 | XMS_ITS | Encounter Summary ---
Author Organization [facility] [place] [address] Care Team Providers Care Journeyman Tool And Die Maker Name Role Phone Serafin Glass MD Primary Care Provider + Encounter Details Date Type Department Care Team (Late st Contact Info) Description 02/09/2011 Orders [place] [address] Marty Nick MD [facility] [place] [address] Social History Tobacco Use Types Packs/Day Years [...] on filedocumented in this encounter Care Teams Journeyman Tool And Die Maker Relationship Specialty Start Date End Date Serafin Glass MD [address] [place] [address] PCP - General 01/25/10 07/06/16 documented as of this encounter
--- OUTSIDE RECORDS SUMMARY | 2023-10-01 21:29 | XMS_ITS | Encounter Summary ---
[place] [address] Care Team Providers Care Magnesium Mill Operator Name Role Phone Yumiko Tavarez MD Primary Care Provider [phone] Encounter Details Date Type Department Care Team (Late st Contact Info) Description 04/01/2019 [place] [address] Razia Mims MD [facility] [place] [address] Social History Tobacco Use Types Packs/Day Years [...] on filedocumented in this encounter Care Teams Magnesium Mill Operator Relationship Specialty Start Date End Date Yumiko Tavarez MD [address] [place] [address] PCP - General Family Medicine 07/07/16 documented as of this encounter
--- OUTSIDE RECORDS SUMMARY | 2023-10-01 21:29 | XMS_ITS | Encounter Summary ---
Author Organization [facility] [place] [address] Care Team Providers Care Overnight Cashier Name Role Phone Yumiko Tavarez MD Primary Care Provider [phone] Encounter Details Date Type Department Care Team (Late st Contact Info) Description 07/10/2018 2:00 PM EDT Office [place] [address] Razia Mims MD [facility] [place] [address] Primary Parkinsonism; Chorea Social History Tobacco Use [...] Mims MD - 07/10/2018 2:00 PM EDT [facility] Movement Disorders Follow Up Patient Evaluation Date of service 07/10/2018 Referring provider Yumiko Tavarez MD [address] [place] [address] Cc: tremor History of present illness Mgiuelina Salcedo is a 53 y.o. right handed [...] , Rfl: ??? naloxone (NARCAN) 4 mg/actuation [place], Non-Aerosol, by Nasal route as needed., Disp: [...] Heartburn.,Disp: , Rfl: Social History: Lives in [facility], she is retired from [employer]. Remote history of cocaine use Review of [...] other genetic testing Razia Mims MD [facility] Neurology-Movement Disorders documented in this encounter Plan of Treatment Not on file documented as of this encounter Visit Diagnoses Diagnosis Primary parkinsonism Paralysis agitans Chorea Other choreas documented in this encounter Care Teams Overnight Cashier Relationship Specialty Start Date End Date Yumiko Tavarez MD [address] [place] [address] PCP - General Family Medicine 07/07/16 documented as of this encounter
--- OUTSIDE RECORDS SUMMARY | 2023-10-01 21:29 | XMS_ITS | Encounter Summary ---
Author Organization [facility] [place] [address] Care Team Providers Care Director Of Scout Work Name Role Phone Serafin Glass MD Primary Care Provider + Encounter Details Date Type Department Care Team (Late st Contact Info) Description 03/17/2014 10:45 AM EST Office [place] [address] Marty Nick MD [facility] [place] [address] Chronic pain syndrome Discharge Disposition: Home Social [...] under the care of Natalia Monge at [facility] who took over prescribing her opioids, [...] is as mentioned. She lives alone in [place], [place]. She has no prior history of [...] was seen by Dr. Iain gray at [facility] at about the same time in 2004. [...] help, but I did discuss the functional mormon program with her and I discussed an [...] at that time either. I reviewed the [place] Prescription Monitoring Program database today and her [...] syndrome documented in this encounter Care Teams Director Of Scout Work Relationship Specialty Start Date End Date Serafin Glass MD [address] [place] [address] PCP - General 01/25/10 07/06/16 documented as of this encounter
--- OUTSIDE RECORDS SUMMARY | 2023-10-01 21:29 | XMS_ITS | Encounter Summary ---
[place] [address] Care Team Providers Care Land Planner Name Role Phone Yumiko Tavarez MD Primary Care Provider [phone] Reason for Referral * Diagnostic Test (Routine) - Closed Specialty Diagnoses / Procedures Referred By Warren dennis Referred To Contact Radiology Diagnoses Chorea Procedures MRI Brain wo Contrast Razia Mims MD [facility] [place] [address] [place] [address] Referral ID Status Reason Start Date Expiration Date V isits Requested Visits Authorized [id number] Closed Specialty Service Requested 11/07/2016 02/05/2017 1 1 Reason for Visit * Consultation (Routine) - Closed Specialty Diagnoses / Procedures Referred By Warren dennis Referred To Contact Neurology Diagnoses 51 yo lady with difficulty walking. She has a chorieform and dancing gait and has a lot of chorieform movements. MRI spine shows old fractures. There is no family history of chorea to suggest [place] disease. No strep infection to suggest [place]'s chorea. Terence Montgomery MD [address] [address] Prashant Roach MD [facility] [place] [address] Referral ID Status Reason Start Date Expiration Date V isits Requested Visits Authorized [id number] Closed Consult, Test & Treat Connection [facility] 07/07/2016 07/07/2017 1 1 Encounter Details Date Type Department Care Team (Late st Contact Info) Description 11/03/2016 3:30 PM EDT [place] [address] Razia Mims MD [facility] [place] [address] Chorea Social History Tobacco Use Types Packs/Day [...] MD - 11/03/2016 3:30 PM EDT [facility] Movement Disorders New Patient Evaluation Date of service 11/03/2016 Referring provider Terence Montgomery MD [address] [address] Cc: involuntary movements History of present illness Miguelina Salcedo is a 51 y.o. right handed woman who presents to the movement disorders clinic for evaluation of abnormal involuntary movements. Miguelina tells me that in about 2003 she was having abnormal movements and was told she had ataxia. Shealso had some difficulty swallowing and mild dysarthria [...] LAPAROSCOPIC ??? VERTEBROPLASTY Social History: Lives in [place], she is retired from [employer] Family History Problem Relation Age of Onset [...] of MRI brain, HD genetic test (extensive credit counselor given) and additional labs listed above. Plan: - labs including HD genetic testing - MRI brain - follow up in 2 months This was my initial visit with the patient. I spent 60 minutes with the patient and more than 30 minutes were spent discussion as reflected above Razia Mims MD [facility] Neurology-Movement Disorders documented in this encounter [...] study. Razia Mims MD IMG MRI ORDERABLES * Lyme IgG & IgM Antibody (11/20/2016 1:49 PM EDT) Lyme Screening Antibody Neg Neg [facility] Blood specimen (specimen) 11/20/2016 1:49 PM EDT 11/21/2016 8:31 AM EDT Narrative Resulting Agency Comment Spec In Lab Razia Mims MD IMMUNOLOGY ORDERAB LES [facility] [place] [address] * Ceruloplasmin (11/20/2016 1:49 PM EDT) Ceruloplasmin 37.5 16.0 - 45.0 mg/dL [facility] Blood specimen (specimen) 11/20/2016 1:49 PM EDT 11/20/2016 2:01 PM EDT Narrative Resulting Agency Comment Spec In Lab Razia Mims MD CHEMISTRY ORDERABL ES Performing Organization Address [facility]/ZIP Co de Phone Number [facility] [place] [address] * Miscellaneous Lab request (11/20/2016 1:49 PM EDT) [facility] Lab Result Request received in lab. [facility] Blood specimen (specimen) 11/20/2016 1:49 PM EDT 11/20/2016 2:01 PM EDT Narrative Resulting Agency Comment Spec In Lab Razia Mims MD HEMATOLOGY ORDERAB LES Performing Organization Address [facility] Co de Phone Number [facility] [place] [address] * Streptococcal Antibody Panel (11/20/2016 1:49 PM EDT) [facility] ASO Titer 44 0 - 530 IU/mL [facility] Comment: Test Performed by: [facility] [address] [place] [address] DNase B Ab <74 0 - 300 unit/mL [facility] Comment: Test Performed by: [facility] [address] [place] [address] Blood specimen (specimen) 11/20/2016 1:49 PM EDT 11/20/2016 4:01 PM EDT Narrative Resulting Agency Comment Spec In Lab Razia Mims MD IMMUNOLOGY ORDERAB LES Performing Organization Address City/[facility]/ZIP Co de Phone Number [facility] [place] [address] * C4 Complement (11/20/2016 1:49 PM EDT) [facility] C4 Complement 27 10 - 40 mg/dL [facility] Blood specimen (specimen) 11/20/2016 1:49 PM EDT 11/20/2016 2:01 PM EDT Narrative Resulting Agency Comment Spec In Lab Razia Mims MD CHEMISTRY ORDERABL ES Performing Organization Address [facility]/ZIP Co de Phone Number [facility] [place] [address] * C3 Complement (11/20/2016 1:49 PM EDT) C3 Complement 119 90 - 180 mg/dL [facility] Blood specimen (specimen) 11/20/2016 1:49 PM EDT 11/20/2016 2:01 PM EDT Narrative Resulting Agency Comment Spec In Lab Razia Mims MD CHEMISTRY ORDERABL ES Performing Organization Address [facility] Co de Phone Number [facility] [place] [address] * T4, free (11/20/2016 1:49 PM EDT) Free T4 1.04 0.93 - 1.70 ng/dL [facility] Blood specimen (specimen) 11/20/2016 1:49 PM EDT 11/20/2016 2:01 PM EDT Narrative Resulting Agency Comment Spec In Lab Razia Mims MD CHEMISTRY ORDERABL ES Performing Organization Address [facility]/ZIP Co de Phone Number [facility] [place] [address] * ARMEN (11/20/2016 1:49 PM EDT) ARMEN Neg Neg [facility] Blood specimen (specimen) 11/20/2016 1:49 PM EDT 11/21/2016 7:30 AM EDT Narrative Resulting Agency Comment Spec In Lab Razia Mims MD IMMUNOLOGY ORDERAB LES Performing Organization Address [facility] de Phone Number [facility] [place] [address] * Cardiolipin Antibody Screen (11/20/2016 1:49 PM EDT) Cardiolipin IgG <23 <=22 GPL unit(s) [facility] Comment: Ranges ? GPL ------- ? ------ Normal ?<23 Low Positive ? 23-35 Moderate Positive ?36-50 High Positive ? >50 Cardiolipin IgM <11 <=10 MPL unit(s) [facility] Comment: Ranges ?MPL ----- ?----- Normal ?<11 Low Positive ? 11-20 Moderate Positive ?21-30 High Positive ? >30 Blood specimen (specimen) 11/20/2016 1:49 PM EDT 11/21/2016 7:30 AM EDT Narrative Resulting Agency Comment Spec In Lab Razia Mims MD IMMUNOLOGY ORDERAB LES Performing Organization Address [facility] Co de Phone Number [facility] [place] [address] * (ABNORMAL) Comprehensive metabolic panel (non-fasting) (11/20/2016 1:49 PM EDT) Glucose Lvl 85 65 - 199 mg/dL [facility] Comment:Diabetes: >=200 mg/d L plus symptoms BUN 18 8 - 18 mg/dL [facility] Creatinine 1.12 0.70 - 1.20 mg/dL [facility] Comment: Please note that the pediatric reference intervals supplied above were not validated at [facility]. Results from pediatric patients should be interpreted in conjunction to the patient's age, height and muscle mass. Sodium 141 135 - 145 mmol/L [facility] Potassium 3.8 3.5 - 5.0 mmol/L [facility] Comment: Please note: ??Patients with WBC >100,000 may have falsely elevated Potassium levels. ??For accurate Potassium quantification in these patients send serum separator tube (gold top) for subsequent determinations. ??Contact the Clinical Chemistry Laboratory if there are any questions. Chloride 99 98 - 107 mmol/L [facility] CO2 31 22 - 31 mmol/L [facility] Anion Gap 11 5 - 15 mmol/L [facility] Calcium 9.6 8.5 - 10.5 mg/dL [facility] Total Protein 7.5 6.1 - 8.0 gm/dL [facility] Albumin 4.2 3.2 - 5.2 gm/dL [facility] AST 17 0 - 30 unit/L [facility] ALT 11 0 - 30 unit/L [facility] Alk Phos 53 40 - 104 unit/L [facility] Total Bilirubin 0.2 0.2 - 1.3 mg/dL [facility] Estimated GFR 51(L) >=60 [facility] Comment: This estimated GFR (eGFR) [...] the following links into your internet browser. [email or web address] Blood specimen (specimen) 11/20/2016 1:49 PM EDT 11/20/2016 2:01 PM EDT Narrative Resulting Agency Comment Spec In Lab Razia Mims MD CHEMISTRY [place] [address] documented in this encounter Visit Diagnoses Diagnosis Chorea Other choreas Chorea Other choreas documented in this encounter Care Teams Land Planner Relationship Specialty Start Date End Date Yumiko Tavarez MD [address] [place] [address] PCP - General Family Medicine 07/07/16 documented as of this encounter
--- OUTSIDE RECORDS SUMMARY | 2023-10-01 21:29 | XMS_ITS | Encounter Summary ---
[place] [address] Care Team Providers Care Metal Alloy Scientist Name Role Phone Yumiko Tavarez MD Primary Care Provider [phone] Encounter Details Date Type Department Care Team (Late st Contact Info) Description 01/21/2019 [place] [phone] Razia Mims MD [facility] [place] [address] Social History Tobacco Use Types Packs/Day Years [...] Bobby - 01/21/2019 11:06 AM EST Clinical [place] Message Caller: Miguelina Call back Number: [phone] Reason for call: EKG Message/information for the [...] filedocumented in this encounter Care Teams Metal Alloy Scientist Relationship Specialty Start Date End Date Yumiko Tavarez MD [address] [place] [address] PCP - General Family Medicine 07/07/16 documented as of this encounter
--- OUTSIDE RECORDS SUMMARY | 2023-10-01 21:29 | XMS_ITS | Encounter Summary ---
Author Organization [facility] [place] [address] Care Team Providers Care Hand Cloth Folder Name Role Phone Serafin Glass MD Primary Care Provider + Encounter Details Date Type Department Care Team (Late st Contact Info) Description 11/08/2004 Orders [place] [address] Marty Nick MD [facility] [place] [address] Social History Tobacco Use Types Packs/Day Years [...] is a Non-reportable exam Marty Nick MD [facility] [place] [place] FILM LIBRARY ORDERABLES documented in this encounter Visit Diagnoses Not on filedocumented in this encounter Care Teams Hand Cloth Folder Relationship Specialty Start Date End Date Serafin Glass MD [address] [place] [address] PCP - General 01/25/10 07/06/16 documented as of this encounter
--- OUTSIDE RECORDS SUMMARY | 2023-10-01 21:29 | XMS_ITS | Encounter Summary ---
Author Organization [facility] [place] [address] Care Team Providers Care Regulatory Affairs Portfolio Leader Name Role Phone Yumiko Tavarez MD Primary Care Provider [phone] Reason for Visit * Reason Onset Date Comments Other 03/01/2018 Encounter Details Date Type Department Care Team (Late st Contact Info) Description 03/01/2018 [place] [address] Razia Mims MD [facility] [place] [address] Other Social History Tobacco Use Types Packs/Day [...] Wagner - 03/01/2018 8:08 AM EST Clinical [place] Message Caller: Patient If not Pt / [...] on filedocumented in this encounter Care Teams Regulatory Affairs Portfolio Leader Relationship Specialty Start Date End Date Yumiko Tavarez MD [address] [place] [address] PCP - General Family Medicine 07/07/16 documented as of this encounter
--- OUTSIDE RECORDS SUMMARY | 2023-10-01 21:29 | XMS_ITS | Encounter Summary ---
[place] [address] Care Team Providers Care Automobile Assembly Supervisor Name Role Phone Yumiko Tavarez MD Primary Care Provider [phone] Reason for Referral * Diagnostic Test (Routine) - Closed Specialty Diagnoses / Procedures Referred By Contac t Referred To Contact Radiology Diagnoses Tremors of nervous system Procedures NM VALENTIN Scan Razia Mims MD [facility] [place] [address] [place] [address] Referral ID Status Reason Start Date Expiration Date V isits Requested Visits Authorized [id number] Closed Specialty Service Requested 12/18/2016 12/18/2017 3 3 Encounter Details Date Type Department Care Team (Late st Contact Info) Description 12/18/2016 1:30 PM EDT [place] [phone] Razia Mims MD [facility] [place] [address] Tremors of nervous system; Chorea; Primary [...] Mims MD - 12/18/2016 1:30 PM EDT [facility] Movement Disorders Follow Up Patient Evaluation Date of service 12/18/2016 Referring provider Yumiko Tavarez MD [address] [place] [address] Cc: involuntary movements History of present illness [...] LAPAROSCOPIC ??? 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
--- OUTSIDE RECORDS SUMMARY | 2023-10-01 21:29 | XMS_ITS | Encounter Summary ---
[place] [address] Care Team Providers Care Interpreter And Translator Name Role Phone Yumiko Tavarez MD Primary Care Provider [phone] Reason for Referral * Diagnostic Test (Routine) - Closed Specialty Diagnoses / Procedures Referred By Contac t Referred To Contact Radiology Diagnoses Tremors of nervous system Procedures NM IRMA Scan Razia Mims MD [facility] [place] [address] [place] [address] Referral ID Status Reason Start Date Expiration Date V isits Requested Visits Authorized [id number] Closed Specialty Service Requested 12/18/2016 12/18/2017 3 3 Reason for Visit * Diagnostic Test (Routine) - Closed Specialty Diagnoses / Procedures Referred By Contac t Referred To Contact Radiology Diagnoses Tremors of nervous system Procedures NM IRMA Scan Razia Mims MD [facility] [place] [address] [place] [address] Referral ID Status Reason Start Date Expiration Date V isits Requested Visits Authorized [id number] Closed Specialty Service Requested 12/18/2016 12/18/2017 3 3 Encounter Details Date Type Department Care Team (Latest Contact Info) Description 01/10/2017 9:57 AM EST - 01/10/2017 2:31 PM EST Hospital Encounter Nuclear Medicine at [facility] [place] [address] Razia Mims MD [facility] [place] [address] Tremors of nervous system Discharge Disposition: Home [...] at 01/10/2017 4:30 PM Razia Mims MD [facility] [place] ORDERABLES documented in this encounter Visit Diagnoses Diagnosis Tremors of nervous system Abnormal involuntary movements documented in this encounter Care Teams Interpreter And Translator Relationship Specialty Start Date End Date Yumiko Tavarez MD [address] [place] [address] PCP - General Family Medicine 07/07/16 documented as of this encounter
[2023-10-01 21:53] LABS: ALT 35 U/L (14-59); AST 30 U/L (15-37); Albumin 3.5 g/dL (3.4-5.0); Alkaline Phosphatase 77 U/L (46-116); Anion Gap 5.9 mmol/L (3-11); BUN 12 mg/dL (7-18); Bilirubin, Total 0.23 mg/dL (0.2-1.0); CO2 31.1 mmol/L (21.0-32.0); CREATININE 1.3 mg/dL (0.55-1.02); Calcium 8.9 mg/dL (8.5-10.1); Chloride 105 mmol/L (98-107); Estimated GFR 47.08 (mL/min/1.73m2); Glucose 84 mg/dL (74-106); Potassium 4.4 mmol/L (3.5-5.1); Sodium 142 mmol/L (136-145); Total Protein 6.6 g/dL (6.4-8.2)
[2023-10-03 10:58] LABS: Lyme Ab w Rflx to Lyme Confirm Negative (Negative)
[2023-10-05 17:28] LABS: Anaplasma phagocytophilum Negative (Negative); B. miyamotoi PCR Negative (Negative); Babesia divergens/MO-1 Negative (Negative); Babesia duncani Negative (Negative); Babesia microti Negative (Negative); Ehrlichia chaffeensis Negative (Negative); Ehrlichia ewingii/canis Negative (Negative); Ehrlichia muris eauclairensis Negative (Negative)
== END 2023-10-01 21:25 | disposition home or self-care (01) ==
LOC: LBN 21:24
PROVIDERS: PCP Family Medicine; Visit Provider Nurse Practitioner Family
DX: J02.9 Acute pharyngitis, unspecified (principal); T14.8XXA Other injury of unspecified body region, initial encounter; W57.XXXA Bitten or stung by nonvenomous insect and other nonvenomous arthropods, initial encounter
CPT/HCPCS: 80053; 87798; 86618; 87070

== ENCOUNTER 2024-01-25 12:49 | Outpatient (REF) | payer OTHER, SELFPAY ==
--- NOTE | 2024-01-25 16:00 | PAPFT_PTH ---
PATIENT: Miguelina Morales LOC: [facility]#:[id number] AGE/SX: 58/F ROOM: RE01/25/[address]: Yumiko Tavarez : 1965 BED: DIS: 01/25/2024 SPEC #: [id number] RECD: 01/28/24 13:07 STATUS: SCOOBY REPrecious #: [id number] BLAIR: 01/25/24 16:[address]: Yumiko Tavarez DEPT: [facility] Cytology RECD BY: Terri Garcias Tissues: 1 - CX/ENDOCX FOR PAP SMEARS Procedures: PAP THIN PREP/UVM Screening HPV DNA PROBE Comments: [id number] (HPV 16 & 18/45)
--- OUTSIDE RECORDS SUMMARY | 2024-01-28 12:21 | XMS_ITS | Clinical Summary ---
Author Organization [facility] Address [address] [place] [address] Care Team Providers Care Director Stage Name Role Phone Yumiko Tavarez MD Primary Care Provider Allergies Active Allergy Reactions Criticality Noted Date Comments Antihistamines - Alkylamine 02/23/20 20 Gabapentin 02/23/2020 Mirtazapine 02/23/2020 Procaine 02/23/2020 Medications calcium carbonate (TUMS) 200 mg calcium (500 [...] Capsule by mouth every morning. 12/17/2019 Active oxyCODONE-aceta minophen (PERCOCET) 10-325 mg per tablet Take 1 Tablet by mouth every 6 hours. Active pregabalin (LYRICA) 50 mg capsule 2 Capsules. In PM 02/02/2020 Active pregabalin (LYRICA) 150 mg capsule every morning. [...] 10/05/2019 Verbally Threaten Not on file 10/05/2019 Comments Unknown Sex and Gender Information Value Date Recorded Sex Assigned at Not on file Legal Sex Female 18:18 EST Gender Identity Female 12/29/2019 9:52 EDT Sexual [...] Info) Description 02/13/2024 13:00 EST Office Visit [facility] Neurology - [address] [place] [address] Alta Walter MD 1 [facility], Level [address] [place] [address] Health Maintenance Due Date Last Done Comments Hepatitis C Screen 1965 Lung Cancer Screening 1965 Pneumococcal Immunization (1 of 2 - PCV) 1969 COVID-19 Vaccine (2023-25 season) 2023 RSV Immunization ( o r 60+ Years) (1 - 1-dose 75+ series) 2038 Insurance [employer] Care Teams Director Stage Relationship Specialty Start Date End Date Yumiko Tavarez MD [address] [place] [address] PCP - General 12/29/19
--- OUTSIDE RECORDS SUMMARY | 2024-01-28 12:21 | XMS_ITS | Encounter Summary ---
Author Organization [facility] Address [address] [place] [address] Care Team Providers Care Math Teacher Name Role Phone Yumiko Tavarez MD Primary Care Provider [phone] Reason for Visit * Reason Onset Date Comments Appointment Related 08/02/2023 Encounter Details Date Type Department Care Team (Late st Contact Info) Description 08/02/2023 Telephone [facility] Neurology - [address] [id number] Alta Walter MD [address] [place] [address] [address] [place] [phone] Appointment Related Social History Tobacco Use Types [...] Office Visit [facility] Neurology - [address] [place] [address] Alta Walter MD [address] [place] [address], [address] [place] [address] documented as of this encounter Visit Diagnoses Not on filedocumented in this encounter Care Teams Math Teacher Relationship Specialty Start Date End Date Yumiko Tavarez MD [address] [place] [address] PCP - General 12/29/19 documented as of this encounter
--- OUTSIDE RECORDS SUMMARY | 2024-01-28 12:21 | XMS_ITS | Referral Summary ---
Author Organization [facility] Address [address] [place] [address] Care Team Providers Care Underwriter Mortgage Loan Name Role Phone Yumiko Tavarez MD Primary Care Provider [phone] Allergies Active Allergy Reactions Criticality Noted Date [...] [facility] Neurology - [address] [place], [place] [address] Alta Walter MD 1 [facility], Level [address] [place] [address] Insurance [employer] Care Teams Underwriter Mortgage Loan Relationship Specialty Start Date End Date Yumiko Tavarez MD [address] [place] [address] PCP - General 12/29/19
--- OUTSIDE RECORDS SUMMARY | 2024-01-28 12:21 | XMS_ITS | Encounter Summary ---
Author Organization [facility] Address [address] [place] [address] Care Team Providers Care Manufacturing Engineer Chief Name Role Phone Yumiko Tavarez MD Primary Care Provider [phone] Encounter Details Date Type Department Care Team (Late st Contact Info) Description 10/02/2023 Lab [facility] Pathology & Laboratory Medicine - [facility] [address] [place] [address] Outr Resulting Lab, Provider Social History Tobacco [...] Info) Description 02/13/2024 13:00 EST Office Visit [facility] Neurology - [address] [address] Alta Walter MD [address] [place] [address] [address] [place] [address] documented as of this encounter Procedures Procedure Name Priority Date/Time Associated Diagnosis Comments LYME AB Routine 10/01/2023 14:14 EDT documented in this encounter Results * LYME AB (10/01/2023 14:14 EDT) Lyme Ab Negative Negative 10/03/2023 10:54 EDT [facility] Blood VENOUS BLOOD / Unknown 10/01/2023 14:14 EDT 10/02/2023 17:18 EDT us Provider Outr Resulting Lab IMMUNOLOGY AND SEROL OGY ORDERABLES Final Result [facility] [address] [place] [address] documented in this encounter Visit Diagnoses Not on filedocumented in this encounter Care Teams Manufacturing Engineer Chief Relationship Specialty Start Date End Date Yumiko Tavarez MD [address] [place] [address] PCP - General 12/29/19 documented as of this encounter
--- OUTSIDE RECORDS SUMMARY | 2024-01-28 12:22 | XMS_ITS | Encounter Summary ---
Author Organization [facility] Address [address] [place] [address] Care Team Providers Care Party Plan Demonstrator Name Role Phone Yumiko Tavarez MD Primary Care Provider [phone] Encounter Details Date Type Department Care Team (Late st Contact Info) Description 07/26/2022 Lab Requisition [facility] Pathology & Laboratory Medicine - [facility] [address] [place], [place] [address] Selvin Marie MD [address] [place] [phone] Encounter for screening for malignant neoplasm of [...] Info) Description 02/13/2024 13:00 EST Office Visit [facility] Neurology - S [address] [address] Alta Walter MD [address] [place] [address], Level 2 [place] [phone] documented as of this encounter Procedures Procedure [...] explore management options, if applicable. 07/27/2022 16:57 [facility] Final Diagnosis A. COLON, TRANSVERSE, POLYP, BIOPSY: - Hyperplastic polyp. - Deeper levels examined. B. COLON, SIGMOID, POLYP, BIOPSY: - Hyperplastic polyp. 07/27/2022 16:57 [facility] Attestation By the signature below, the attending physician certifies that they have 1) personally conducted a gross and/or microscopic examination of the described specimen(s), and/or personally interpreted the results of laboratory testing of the described specimen(s), and 2) personally rendered or confirmed the above diagnosis. 07/27/2022 16:57 [facility] at 1657 Clinical History Screening colonoscopy; diverticulosis, colon polyp 07/27/2022 16:57 [facility] Gross Description A. Received [...] B1. CHRIS FREY(ASCP) 07/26/2022 18:02 07/27/2022 16:57 [facility] Performing Lab [facility] 07/27/2022 16:57 [facility] Scanned Images 07/27/2022 16:57 EDT [facility] Tissue ENTIRE SIGMOID COLON / Unknown 07/26/2022 8:49 EDT 07/26/2022 16:54 EDT Tissue specimen (specimen) SIGMOID COLON STRUCTURE / Unknown 07/26/2022 8:49 EDT 07/26/2022 16:54 EDT us Selvin Marie MD PATHOLOGY ORDERABLES F inal Result [facility] [address] [place] [address] documented in this encounter Visit Diagnoses Diagnosis Encounter for screening for malignant neoplasm of colon Special screening for malignant neoplasms, colon documented in this encounter Care Teams Party Plan Demonstrator Relationship Specialty Start Date End Date Yumiko Tavarez MD [address] [place] [address] PCP - General 12/29/19 documented as of this encounter
--- OUTSIDE RECORDS SUMMARY | 2024-01-28 12:22 | XMS_ITS | Encounter Summary ---
Author Organization [facility] Address [address] [place] [address] Care Team Providers Care Mill Operator Name Role Phone Yumiko Tavarez MD Primary Care Provider [phone] Reason for Visit * Reason Onset Date Comments Medications Refill 06/16/2022 Encounter Details Date Type Department Care Team (Late st Contact Info) Description 06/16/2022 Refill [facility] Neurology - S [address] [address] Alta Walter MD [address] [place] [address], Level 2 [place] [phone] Medications Refill Social History Tobacco Use Types [...] of this encounter Ordered Prescriptions Prescription Sig Dispense Quantity Refills Last Filled Start Date End Date clonazePAM (KLONOPIN) 1 mg tablet Take 1.5 Tablets by mouth 2 times daily AND 1 Tablet daily. Daily Max: 4 mg. 120 Tablet 5 06/22/2022 3 documented in this encounter Miscellaneous Notes * Telephone Encounter - Eric Ivey - 06/22/2022 6233 EDT Miguelina calls back in and is [...] mg tablet Pharmacy (reconcile pharmacy list): [facility] - [place], [place] - [address] [place] [address] Is patient out of medication? Yes Picking up/mailing (location)/calling in/eprescribe? eprescribe 30 day supply/90 day supply? Meme Lemus 39:29 documented in this encounter Plan of Treatment Upcoming Encounters Date Type Department Care Team (Late st Contact Info) Description 02/13/2024 13:00 EST Office Visit [facility] Neurology - S [address] [address] Alta Walter MD 1 [facility], Level 2 [place] [address] documented as of this encounter Visit Diagnoses Not on filedocumented in this encounter Discontinued Medications Medication Sig Discontinue Reason Start Date End Da te clonazePAM (KLONOPIN) 1 mg tablet Take 1.5 Tablets by mouth 2 times daily AND 1 Tablet daily. Daily Max: 4 mg. Reorder 12/14/2021 06/16/2022 documented as of this encounter Care Teams Mill Operator Relationship Specialty Start Date End Date Yumiko Tavarez MD [address] [place] [address] PCP - General 12/29/19 documented as of this encounter
--- OUTSIDE RECORDS SUMMARY | 2024-01-28 12:22 | XMS_ITS | Encounter Summary ---
Author Organization [facility] Address [address] [place] [address] Care Team Providers Care Inspector Grain Mill Products Name Role Phone Yumiko Tavarez MD Primary Care Provider [phone] Encounter Details Date Type Department Care Team (Late st Contact Info) Description 03/03/2021 Specialty Pharmacy [facility] - [facility] [address] [place], [place] [phone] Blanca Vaughn, [facility] [address] [facility] [address] [place] [address] Social History Tobacco Use Types Packs/Day [...] Visit [facility] Neurology - S [facility] [address] [place] [id number] Alta Walter MD [address] [place] [address], Level 2 [place] [phone] documented as of this encounter Visit Diagnoses Not on filedocumented in this encounter Care Teams Inspector Grain Mill Products Relationship Specialty Start Date End Date Yumiko Tavarez MD [address] [place] [address] PCP - General 12/29/19 documented as of this encounter
--- OUTSIDE RECORDS SUMMARY | 2024-01-28 12:22 | XMS_ITS | Encounter Summary ---
Author Organization [facility] Address [address] [place] [address] Care Team Providers Care Occ Therapy Asst Name Role Phone Yumiko Tavarez MD Primary Care Provider [phone] Reason for Visit * Reason Onset Date Comments Appointment Related 08/15/2021 Encounter Details Date Type Department Care Team (Late st Contact Info) Description 08/15/2021 Telephone [facility] Neurology - S [address] [id number] Alta Walter MD [address] [place] [address] Level 2 [place] [phone] Appointment Related Social History Tobacco Use Types [...] Info) Description 02/13/2024 13:00 EST Office Visit [facility] Neurology - S [address] [address] Alta Walter MD 1 [facility], Level 2 [place] [address] documented as of this encounter Visit Diagnoses Not on filedocumented in this encounter Care Teams Occ Therapy Asst Relationship Specialty Start Date End Date Yumiko Tavarez MD [address] [place] [address] PCP - General 12/29/19 documented as of this encounter
--- OUTSIDE RECORDS SUMMARY | 2024-01-28 12:22 | XMS_ITS | Encounter Summary ---
Author Organization [facility] Address [address] [place] [address] Care Team Providers Care Coagulating Operator Name Role Phone Yumiko Tavarez MD Primary Care Provider [phone] Reason for Visit * Reason Onset Date Comments Medications Refill 09/16/2021 Encounter Details Date Type Department Care Team (Late st Contact Info) Description 09/16/2021 Refill [facility] Neurology - S [address] [address] Alta Walter MD [address] [place] [address], Level 2 [place] [phone] Medications Refill Social History Tobacco Use Types [...] Max: 3 mg 90 Tablet 5 09/16/2021 2 documented in this encounter Miscellaneous Notes * Telephone Encounter - Cristel Doss RN - 09/16/2021 1101 EDT Medication Rx Request Medication: Clonazepam 1 mg Last Visit in login department: 05/19/2021 Next appointment Scheduled: 12/01/2021 Date previous Rx written: 08/15/2021 VPMS Inquiry needed? The [place] Prescription Monitoring System query has been completed per the following requirement(s): Annual Verification. If yes, date of last fill: 08/16/2021 Documentation Reviewed, prescription pended to provider for review & signature. RX pended to provider, previous pharmacy is now closed and unable to access refills. * Telephone Encounter - Angelita Laraissa - 09/16/2021 1049 EDT Migeulina called in this morning needing a refill called in for her. Her normal pharmacy is closed and she is out of medication. The medication is for, Medication Refill Medication(s) Requested: clonazePAM (KLONOPIN) 1 mg tablet Pharmacy (reconcile pharmacy list): [facility] - [place], [place] - [address] [place] [address] Is patient out of medication? Yes Picking up/mailing (location)/calling in/eprescribe? E-prescribe 30 day supply/90 day supply? 90 day Please call the patient with any questions. Thank you documented in this encounter Plan of Treatment Upcoming Encounters Date Type Department Care Team (Late st Contact Info) Description 02/13/2024 13:00 EST Office Visit [facility] Neurology - S [address] [address] Alta Walter MD [address] [place] [address], Level [address] [place] [phone] documented as of this encounter Visit Diagnoses Not on filedocumented in this encounter Discontinued Medications Medication Sig Discontinue Reason Start Date End Da te clonazePAM (KLONOPIN) 1 mg tablet Take 1.5 Tablets by mouth 2 times daily. Daily Max: 3 mg Reorder 08/15/2021 09/16/2021 documented as of this encounter Care Teams Coagulating Operator Relationship Specialty Start Date End Date Yumiko Tavarez MD [address] [place] [phone] PCP - General 12/29/19 documented as of this encounter
--- OUTSIDE RECORDS SUMMARY | 2024-01-28 12:22 | XMS_ITS | Encounter Summary ---
Author Organization [facility] Address [address] [place] [address] Care Team Providers Care Log Cooker Name Role Phone Yumiko Tavarez MD Primary Care Provider [phone] Encounter Details Date Type Department Care Team (Latest Contact Info) Description 01/30/2023 Lab Requisition [facility] Pathology & Laboratory Medicine - [facility] [address] [place] [address] Yumiko Tavarez MD [address] [place] [phone] Encounter for gynecological examination (general) (routine) without [...] Info) Description 02/13/2024 13:00 EST Office Visit [facility] Neurology - S [place] [address] [place] [phone] Alta Walter MD [address] [place] [address], Level 2 [place] [phone] documented as of this encounter Procedures Procedure [...] 16, PCR Negative Negative 02/13/2023 15:28 EST [facility] HPV18/45 RNA (HPV18/45) Positive(A) Negative 02/13/2023 15:28 EST [facility] Pap Test CERVIX UTERI STRUCTURE / Unknown 01/26/2023 14:00 EST 02/07/2023 16:12 EST us Yumiko Tavarez MD MICROBIOLOGY - GENERAL ORDERAB LES Final Result [facility] [address] [place] [address] * (ABNORMAL) HUMAN PAPILLOMAVIRUS (HPV) DETECTION-HIGH RISK TYPES (01/26/2023 14:00 EST) HPV other High Risk types, PCR Positive( A) Negative 02/15/2023 14:38 EST [facility] Comment:E6 OR E7 mRNA from o ne or more types of HPV types 16,18,31,33,35,39,45,51,52,56,58,59,66, and 68 is detected by railroad mechanic mediated amplification. High and intermediate risk HPV types are associated with most squamous intraepithelial lesions and cervical cancers. Pap Test CERVIX UTERI STRUCTURE / Unknown 01/26/2023 14:00 EST 02/07/2023 16:12 EST us Yumiko Tavarez MD MICROBIOLOGY - GENERAL ORDERAB LES Final Result [facility] [address] [place] [address] * PAP TEST (01/26/2023 14:00 EST) Specimens A. Cervix and/or Endocervix , ThinPrep Imaging System with Manual Evaluation 02/15/2023 14:38 [facility] Specimen Adequacy Satisfactory for Evaluation - transformation zone component present 02/15/2023 14:38 [facility] General Categorization Negative for intraepithelial lesion or malignancy 02/15/2023 14:38 [facility] Descriptive Diagnosis Reactive cellular changes associated with inflammation present (includes repair). 02/15/2023 14:38 [facility] Attestation By the signature below, the attending physician certifies that they have personally conducted a gross and/or microscopic examination of the described specimens and rendered or confirmed the above diagnosis. 02/15/2023 14:38 [facility] at 1438 Clinical History SEE BELOW 02/16/20 14:38 [facility] HPV The result for the Human Papillomavirus (HPV) Detection-High Risk Types is Positive . E6 OR E7 mRNA from one or more types of HPV types 16,18,31,33,35,39 ,45,51,52,56,58,5 9,66, and 68 is detected by railroad mechanic mediated amplification. High and intermediate risk HPV types are associated with most squamous intraepithelial lesions and cervical cancers. Testing was performed on specimen [id number] and was resulted on 02/08/2023 1733 EST by ANTHONY, LAB INSTRUMENT RESULTS IN 02/15/2023 14:38 [facility] Genotyping 16 & 18/45 The results for the HPV Genotypes 16 and 18/45 are Negative for the HPV16 RNA and Positive for the HPV18/45 RNA (HPV18/45) . Testing was performed on specimen [id number] and was resulted on 02/13/2023 1528 EST by ANTHONY, LAB INSTRUMENT RESULTS IN 02/15/2023 14:38 EST [facility] Performing Lab [facility] 02/15/2023 14:38 EST [facility] Scanned Images 02/15/2023 14:38 EST [facility] Pap Test CERVIX UTERI STRUCTURE / Unknown 01/26/2023 14:00 EST 01/30/2023 16:15 EST us Yumiko Tavarez MD PATHOLOGY ORDERABLES Final Res ult [facility] [address] [place] [address] documented in this encounter Visit Diagnoses Diagnosis Encounter for gynecological examination (general) (routine) without abnormal findings Encounter for screening for malignant neoplasm of cervix Screening for malignant neoplasm of the cervix Encounter for general adult medical examination without abnormal findings Unspecified general medical examination documented in this encounter Care Teams Log Cooker Relationship Specialty Start Date End Date Yumiko Tavarez MD [address] [place] [address] PCP - General 12/29/19 documented as of this encounter
--- OUTSIDE RECORDS SUMMARY | 2024-01-28 12:22 | XMS_ITS | Encounter Summary ---
Author Organization [facility] Address [address] [place] [address] Care Team Providers Care Pig Machine Operator Name Role Phone Yumiko Tavarez MD Primary Care Provider [phone] Reason for Visit * Reason Onset Date Comments Medications Refill 10/05/2020 Encounter Details Date Type Department Care Team (Late st Contact Info) Description 10/05/[address] [facility] Neurology - S [address] [phone] Alta Walter MD [address] [place] [address], Level [address] [place] [phone] Medications Refill Social History Tobacco Use Types [...] Refills Last Filled Start Date End Date deutetrabenazine 12 mg tablet Take 1 Tablet by mouth 2 times daily. 180 Tablet 3 10/08/2020 10/13/2020 documented in this encounter Miscellaneous Notes * Telephone Encounter - Orly Bertrand MA - 10/05/2020 8988 EDT Fax received from pharmacy requesting a [...] Description 02/13/2024 13:[address] [facility] Neurology - S [address] [address] Alta Walter MD [address] [place] [address], Level [address] [place] [phone] documented as of this encounter Visit Diagnoses Not on filedocumented in this encounter Discontinued Medications Medication Sig Discontinue Reason Start Date End Da te deutetrabenazine 12 mg tablet Take 1 Tablet by mouth every morning for 7 days, THEN 1 Tablet 2 times daily for 21 days. Reorder 09/10/2020 10/05/2020 documented as of this encounter Care Teams Pig Machine Operator Relationship Specialty Start Date End Date Yumiko Tavarez MD [address] [place] [phone] PCP - General 12/29/19 documented as of this encounter
--- OUTSIDE RECORDS SUMMARY | 2024-01-28 12:22 | XMS_ITS | Encounter Summary ---
Author Organization [facility] Address [address] [place] [address] Care Team Providers Care Graffiti Cleaner Name Role Phone Yumiko Tavarez MD Primary Care Provider [phone] Reason for Visit * Reason Onset Date Comments Appointment Related 12/23/2020 Encounter Details Date Type Department Care Team (Late st Contact Info) Description 12/23/2020 Telephone [facility] Neurology - S [address] [phone] Alta Walter MD [address] [place] [address] [address] [place] [phone] Appointment Related Social History Tobacco Use Types [...] Info) Description 02/13/2024 13:00 EST Office Visit [facility] Neurology - S [place] [address] [place] [address] Alta Walter MD 1 [facility], Level [address] [place] [phone] documented as of this encounter Visit Diagnoses Not on filedocumented in this encounter Care Teams Graffiti Cleaner Relationship Specialty Start Date End Date Yumiko Tavarez MD [address] [place] [phone] PCP - General 12/29/19 documented as of this encounter
--- OUTSIDE RECORDS SUMMARY | 2024-01-28 12:22 | XMS_ITS | Encounter Summary ---
Author Organization [facility] Address [address] [place] [address] Care Team Providers Care Speeder Operator Name Role Phone Yumiko Tavaerz MD Primary Care Provider [phone] Reason for Visit * Reason Comments Follow-up Telemedicine Video Visit Encounter Details Date Type Department Care Team ([facility] st Contact Info) Description 09/29/2021 13:30 EDT Telemedicine [facility] Neurology - S [address] [phone] Alta Walter MD [address] [place] [address] Level 2 [place] [address] Tardive dyskinesia (Primary Dx); Functional [...] visit Clinician Requesting Consultation: Yumiko Tavarez MD [address] [place] [phone] Fax: Primary Fare Enforcement Officer: Yumiko Tavarez [address] [facility] [phone] ASSESSMENT & PLAN / RECOMMENDATIONS 1. Tardive dyskinesia 2. Functional neurological symptom disorder with abnormal movement 3. Tremor Miguelina Morales is a 56 y.o. woman [facility] [...] I offered her a referral to the [facility] clinical coach driver assessment program. She is concerned that [...] difficulty - has dysphagia, referral sent to [facility] Urinary dysfunction - okay in the [...] naloxone (NARCAN) 4 mg/actuation nasal spray 1 [place] by nasal route as needed. ??? 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 Past medical, surgical, family, [...] following activities: Personal review of available imaging Patient/care professionals education Scanned health information available from the referring and/or primary provider(s) Review of the pertinent information in the electronic health record Care plan formulation Supportive counseling Alta Thakkar MD Attending Physician, Movement Disorders Department of Neurology documented in this encounter Plan of Treatment Upcoming Encounters Date Type Department Care Team (Late st Contact Info) Description 02/13/2024 13:00 EST Office Visit [facility] Neurology - S [address] [phone] Alta Walter MD [address] [place] [address] 2 [place] [address] documented as of this encounter Visit Diagnoses Diagnosis Tardive dyskinesia- Primary Subacute dyskinesia due to drugs 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
--- OUTSIDE RECORDS SUMMARY | 2024-01-28 12:22 | XMS_ITS | Encounter Summary ---
Author Organization [facility] Address [address] [place] [address] Care Team Providers Care Instructional Writer Name Role Phone Yumiko Tavarez MD Primary Care Provider [phone] Reason for Visit * Reason Comments Follow-up Telemedicine Video Visit Encounter Details Date Type Department Care Team ([facility] st Contact Info) Description 06/15/2022 16:00 EDT Telemedicine [facility] Neurology - S [address] [address] Alta Walter MD [address] [place] [address] Level 2 [place] [address] Tardive dyskinesia (Primary Dx); Functional [...] visit Clinician Requesting Consultation: Yumiko Tavarez MD [address] [place] [phone] Fax: Primary Joint Yarner: Yumiko Tavarez [address] [place] [phone] ASSESSMENT & PLAN / RECOMMENDATIONS 1. Tardive dyskinesia 2. Functional neurological symptom disorder with abnormal movement Miguelina Morales is a 57 y.o. woman who returns to the [facility] Movement Disorders clinic for evaluation and [...] y.o. woman who was referred to the [facility] Movement Disorders clinic for evaluation and [...] difficulty - has dysphagia, referral sent to [facility] Urinary dysfunction - okay in the [...] naloxone (NARCAN) 4 mg/actuation nasal spray 1 [place] by nasal route as needed. ??? 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
--- OUTSIDE RECORDS SUMMARY | 2024-01-28 12:22 | XMS_ITS | Encounter Summary ---
Author Organization [facility] Address [address] [place] [address] Care Team Providers Care Supervisor Vendor Quality Name Role Phone Yumiko Tavarez MD Primary Care Provider [phone] Reason for Visit * Reason Onset Date Comments Appointment Related 05/25/2021 Encounter Details Date Type Department Care Team (Late st Contact Info) Description 05/25/[address] [facility] Neurology - S [address] [phone] Alta Walter MD [address] [place] [address] Level 2 [place] [phone] Appointment Related Social History Tobacco Use Types [...] [facility] Neurology - S [place] [address] [place] [address] Alta Walter MD 1 [facility], Level [address] [place] [phone] documented as of this encounter Visit Diagnoses Not on filedocumented in this encounter Care Teams Supervisor Vendor Quality Relationship Specialty Start Date End Date Yumiko Tavarez MD [address] [place] [address] PCP - General 12/29/19 documented as of this encounter
--- OUTSIDE RECORDS SUMMARY | 2024-01-28 12:22 | XMS_ITS | Encounter Summary ---
Author Organization [facility] Address [address] [place] [address] Care Team Providers Care Teacher Of The Deaf Name Role Phone Yumiko Tavarez MD Primary Care Provider [phone] Reason for Visit * Reason Onset Date Comments Prior Auth, Medication 03/13/2023 Encounter Details Date Type Department Care Team (Late st Contact Info) Description 03/13/2023 Telephone [facility] Neurology - S [address] [id number] Alta Walter MD [address] [place] [address], Level 2 [place] [address] Prior Auth, Medication Social History [...] 1 mg tab, sent to plan. [place]: [id number] PA response: Drug is covered by current benefit plan. No further PA activity needed documented in this encounter Plan of Treatment Upcoming Encounters Date Type Department Care Team (Late st Contact Info) Description 02/13/2024 13:00 EST Office Visit [facility] Neurology - S [address] [address] Alta Walter MD [address] [place] [address], Level 2 [place] [phone] documented as of this encounter Visit Diagnoses Not on filedocumented in this encounter Care Teams Teacher Of The Deaf Relationship Specialty Start Date End Date Yumiko Tavarez MD [address] [place] [address] PCP - General 12/29/19 documented as of this encounter
--- OUTSIDE RECORDS SUMMARY | 2024-01-28 12:22 | XMS_ITS | Encounter Summary ---
Author Organization [facility] Address [address] [place] [address] Care Team Providers Care Carbon Coater Machine Operator Name Role Phone Yumiko Tavarez MD Primary Care Provider [phone] Reason for Visit * Reason Onset Date Comments Appointment Related 07/06/2023 Encounter Details Date Type Department Care Team (Late st Contact Info) Description 07/06/2023 Telephone [facility] Neurology - S [address] [phone] Alta Walter MD [address] [place] [address] Level 2 [place] [phone] Appointment Related Social History Tobacco Use Types [...] Info) Description 02/13/2024 13:00 EST Office Visit [facility] Neurology - S [place] 1 [place] [address] Alta Walter MD [address] [facility], Level 2 [place] [address] documented as of this encounter Visit Diagnoses Not on filedocumented in this encounter Care Teams Carbon Coater Machine Operator Relationship Specialty Start Date End Date Yumiko Tavarez MD [address] [place] [address] PCP - General 12/29/19 documented as of this encounter
--- OUTSIDE RECORDS SUMMARY | 2024-01-28 12:22 | XMS_ITS | Encounter Summary ---
Author Organization [facility] Address [address] [place] [address] Care Team Providers Care Major General Name Role Phone Yumiko Tavarez MD Primary Care Provider [phone] Reason for Referral * PT/OT/ST (Routine/Next Available) - Closed Specialty Diagnoses / Procedures Referred By Contac t Referred To Contact Diagnoses Functional neurological symptom disorder with abnormal movement Neurologic gait dysfunction Alta Walter MD Phone: tel: fax: Referral ID Status Reason Start Date Expiration Date V isits Requested Visits Authorized [id number] Closed Specialty Services Required 01/02/2023 1 1 Question Answer Reason for Request: Patient with involuntary movements / functional neurological disorder, please help with gait / motor reprogramming [facility] - Rehabilitation Department Comments Sarah Moreno, PT DTaP [facility] Reason for Visit * Reason Comments Follow-up Encounter Details Date Type Department Care Team (Late st Contact Info) Description 01/01/2023 13:15 EDT Office Visit [facility] Neurology - S [place] 1 [place] [address] Alta Walter MD [address] [place] [address], Level 2 [place] [phone] Tardive dyskinesia (Primary Dx); Functional neurological symptom [...] in this encounter Ordered Prescriptions Prescription Sig Dispense [...] for this encounter. Phone: N/A Fax: Primary Bricklayer Paving Brick: Yumiko Tavarez [address] [place] [phone] ASSESSMENT & PLAN / RECOMMENDATIONS 1. Tardive dyskinesia 2. Functional neurological symptom disorder with abnormal movement Miguelina Morales is a 57 y.o. 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 citalopram (CELEXA) 20 mg tablet Take 1 Tablet by mouth daily. added in this encounter Care Teams Major General Relationship Specialty Start Date End Date Yumiko Tavarez MD [address] [place] [address] PCP - General 12/29/19 documented as of this encounter
--- OUTSIDE RECORDS SUMMARY | 2024-01-28 12:22 | XMS_ITS | Encounter Summary ---
Author Organization [facility] Address [address] [place] [address] Care Team Providers Care Band Builder Name Role Phone Yumiko Tavarez MD Primary Care Provider [phone] Reason for Visit * Reason Onset Date Comments Medication Management 09/16/2020 Encounter Details Date Type Department Care Team (Late st Contact Info) Description 09/16/2020 Telephone [facility] Neurology - S [address] [phone] Alta Walter MD [address] [place] [address] Level 2 [place] [phone] Medication Management Social History Tobacco Use Types [...] Encounter - Cristel Doss RN - 09/16/2020 9860 EDT Spoke with Yuriy pharmacist at [facility], he was unsure of what questions [...] where in therapy this patient is. Ref: [id number] documented in this encounter Plan of Treatment Upcoming Encounters Date Type Department Care Team (Late st Contact Info) Description 02/13/2024 13:00 EST Office Visit [facility] Neurology - S [address] [phone] Alta Walter MD [address] [place] [address], Level 2 [place] [phone] documented as of this encounter Visit Diagnoses Not on filedocumented in this encounter Care Teams Band Builder Relationship Specialty Start Date End Date Yumiko Tavarez MD [address] [place] [address] PCP - General 12/29/19 documented as of this encounter
--- OUTSIDE RECORDS SUMMARY | 2024-01-28 12:22 | XMS_ITS | Encounter Summary ---
Author Organization [facility] Address [address] [place] [address] Care Team Providers Care Motor Vehicle Dispatcher Name Role Phone Yumiko Tavarez MD Primary Care Provider [phone] Reason for Visit * Reason Onset Date Comments Medication Management 02/10/2021 Encounter Details Date Type Department Care Team (Late st Contact Info) Description 02/10/2021 Telephone [facility] Neurology - S [address] [phone] Alta Walter MD [address] [place] [address] Level 2 [place] [phone] Medication Management Social History Tobacco Use Types [...] 02/13/2024 13:00 EST Office Visit [facility] Neurology - S [place] 1 [place] [address] Alta Walter MD 1 [facility], Level 2 [place] [address] documented as of this encounter Visit Diagnoses Diagnosis Tardive dyskinesia- Primary Subacute dyskinesia due to drugs documented in this encounter Care Teams Motor Vehicle Dispatcher Relationship Specialty Start Date End Date Yumiko Tavarez MD [address] [place] [address] PCP - General 12/29/19 documented as of this encounter
--- OUTSIDE RECORDS SUMMARY | 2024-01-28 12:22 | XMS_ITS | Encounter Summary ---
Author Organization [facility] Address [address] [place] [address] Care Team Providers Care Document Coordinator Name Role Phone Yumiko Tavarez MD Primary Care Provider [phone] Encounter Details Date Type Department Care Team (Latest Contact Info) Description 10/13/2022 Lab Requisition [facility] Pathology & Laboratory Medicine - [facility] [address] [place], [place] [address] Yumiko Tavarez MD [address] [place] [phone] Encounter for gynecological examination (general) (routine) without [...] [facility] Neurology - S [place] [address] [place] [id number] Alta Walter MD [address] [place] [address], Level 2 [place] [phone] documented as of this encounter Procedures Procedure Name Priority Date/Time Associated Diagnosis Comments PAP TEST Today 10/11/2022 13:45 EDT Encounter for gynecological examination (general) (routine) without abnormal findings Encounter for general adult medical examination without abnormal findings documented in this encounter Results * PAP TEST (10/11/2022 13:45 EDT) Specimens A. Cervix and/or Endocervix , ThinPrep Imaging System with Manual Evaluation 10/19/2022 15:18 EDT [facility] Specimen Adequacy Unsatisfactory for evaluation-Insuf ficient number of squamous epithelial cells. Specimen processed and examined but preparation compromised by lubricant or other vaginal contaminant. 10/19/2022 15:18 EDT [facility] General Categorization Unsatisfactory 10/19/2022 15:18 EDT [facility] Educational Comments Unsatisfactory - Specimen processed and examined, but unsatisfactory for evaluation of epithelial abnormality. Recommend repeat age-based screening after 2-4 months per ASCCP Guidelines which may be found at www.asccp.org. HPV testing will not be performed due to the potential for false negative results. 10/19/2022 15:18 EDT [facility] Attestation . 10/19/2022 15:18 T [facility] at 1518 Clinical History See below 10/20/19 15:18 EDT [facility] Performing Lab [facility] 10/19/2022 15:18 EDT [facility] Scanned Images 10/19/2022 15:18 T [facility] Pap Test CERVIX UTERI STRUCTURE / Unknown 10/11/2022 13:45 EDT 10/13/2022 12:32 EDT us Yumiko Tavarez MD PATHOLOGY ORDERABLES Final Res ult [facility] [address] [place] [address] documented in this encounter Visit Diagnoses Diagnosis Encounter for gynecological examination (general) (routine) without abnormal findings Encounter for general adult medical examination without abnormal findings Unspecified general medical examination documented in this encounter Care Teams Document Coordinator Relationship Specialty Start Date End Date Yumiko Tavarez MD [address] [place] [address] PCP - General 12/29/19 documented as of this encounter
--- OUTSIDE RECORDS SUMMARY | 2024-01-28 12:22 | XMS_ITS | Encounter Summary ---
Author Organization [facility] Address [address] [place] [address] Care Team Providers Care Software Analyst Name Role Phone Yumiko Tavarez MD Primary Care Provider [phone] Reason for Visit * Reason Onset Date Comments Medication Management 12/09/2021 Encounter Details Date Type Department Care Team (Late st Contact Info) Description 12/09/2021 Telephone [facility] Neurology - S [address] [phone] Alta Walter MD [address] [place] [address] Level 2 [place] [phone] Medication Management Social History Tobacco Use Types [...] Max: 4 mg. 120 Tablet 5 12/14/2021 3 documented in this encounter Miscellaneous Notes * Telephone Encounter - Alta Freeman RN - 12/14/[address] Thakkar as sent the new clonazapam rx with increase to 1mg midday. [employer] message to Miguelina. * Telephone Encounter - [...] this before getting the refill. Please call toadvise. Thank you * Telephone Encounter - Alejo [...] FUR 03/02/22 at 3:30pm TVD FUR 4M [email or web address] [phone] Zoom scheduling needed documented in this encounter Plan of Treatment Upcoming Encounters Date Type Department Care Team (Late st Contact Info) Description 02/13/2024 13:00 EST Office Visit [facility] Neurology - S [address] [address] Alta Walter MD [address] [place] [address], Level 2 [place] [phone] documented as of this encounter Visit Diagnoses Not on filedocumented in this encounter Discontinued Medications Medication Sig Discontinue Reason Start Date End Da te clonazePAM (KLONOPIN) 1 mg tablet Take 1.5 Tablets by mouth 2 times daily AND 0.5 Tablets daily. Daily Max: 3.5 mg. Reorder 10/12/2021 12/14/2021 documented as of this encounter Care Teams Software Analyst Relationship Specialty Start Date End Date Yumiko Tavarez MD [address] [place] [address] PCP - General 12/29/19 documented as of this encounter
--- OUTSIDE RECORDS SUMMARY | 2024-01-28 12:22 | XMS_ITS | Encounter Summary ---
Author Organization [facility] Address [address] [place] [address] Care Team Providers Care Division Engineer Name Role Phone Yumiko Tavarez MD Primary Care Provider [phone] Reason for Visit * Reason Comments Follow-up Telemedicine Video Visit Encounter Details Date Type Department Care Team ([facility] st Contact Info) Description 01/20/2021 16:[address] [facility] Neurology - S [address] [phone] Alta Walter MD [address] [place] [address] Level 2 [place] [address] Tardive dyskinesia (Primary Dx); Functional [...] visit Clinician Requesting Consultation: Yumiko Tavarez MD [address] [place] [phone] Fax: Primary Community Service Manager: Yumiko Tavarez [address] [place] [phone] ASSESSMENT & PLAN / RECOMMENDATIONS 1. Tardive dyskinesia 2. Functional neurological symptom disorder with abnormal movement Miguelina Morales is a 55 y.o. woman who returns to the [facility] Movement Disorders clinic for evaluation [...] suspect the leg andarm movements may be corporate sales representative of a functional neurological disorder. [...] y.o. woman who was referred to the [facility] Movement Disorders clinic for evaluation [...] - has dysphagia, [facility] Urinary dysfunction - okay in the [...] naloxone (NARCAN) 4 mg/actuation nasal spray 1 [place] by nasal route as needed. ??? 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 Neurology - S [address] [address] Alta Walter MD [address] [place] [address], Level 2 [place] [address] documented as of this encounter Visit Diagnoses Diagnosis Tardive dyskinesia- Primary Subacute dyskinesia due to drugs Functional neurological symptom disorder with abnormal movement Conversion disorder documented in this encounter Care Teams Division Engineer Relationship Specialty Start Date End Date Yumiko Tavarez MD [address] [place] [address] PCP - General 12/29/19 documented as of this encounter
--- OUTSIDE RECORDS SUMMARY | 2024-01-28 12:22 | XMS_ITS | Encounter Summary ---
Author Organization [facility] Address [address] [place] [address] Care Team Providers Care Training Engineer Name Role Phone Yumiko Tavarez MD Primary Care Provider [phone] Reason for Visit * Reason Onset Date Comments Medication Management 10/22/2020 [place] Encounter Details Date Type Department Care Team (Late st Contact Info) Description 10/22/2020 Telephone [facility] Neurology - S [address] [phone] Alta Walter MD [address] [place] [address], Level 2 [place] [address] Medication Management (Austedo) Social History [...] Encounter - Sunni Ivey RN - 11/05/2020 4429 EDT Spoke with Miguelina and let her [...] Visit [facility] Neurology - S [address] [address]461 Alta Walter MD [address] [place] [address] [address] 2 [place] [phone] documented as of this encounter Visit Diagnoses Not on filedocumented in this encounter Care Teams Training Engineer Relationship Specialty Start Date End Date Yumiko Tavarez MD [address] [place] [phone] PCP - General 12/29/19 documented as of this encounter
--- OUTSIDE RECORDS SUMMARY | 2024-01-28 12:22 | XMS_ITS | Encounter Summary ---
Author Organization [facility] Address [address] [place] [address] Care Team Providers Care Youth Services Specialist Name Role Phone Yumiko Tavarez MD Primary Care Provider [phone] Reason for Visit * Reason Onset Date Comments Medication Management 09/10/2020 [place] In itiation/Dose Increase Encounter Details Date Type Department Care Team (Late st Contact Info) Description 09/10/2020 Refill [facility] Neurology - S [place] 1 [place], [place] [address] Blanca Vaughn RPH [address] [facility] [address] [place] [address] Medication Management (Austedo Initiation/Dose Increase) [...] daily for 21 days. 49 Tablet 09/10/2020 documented in this encounter Miscellaneous Notes * Telephone Encounter - Blanca Vaughn RPH - 09/10/2020 6597 EDT Telephone call to patient to discuss [...] bythe Austedo. Blanca Vaughn, Pharm.D. [facility] Ambulatory Pharmacist Clinician 09/10/2020 Electronically signed by Blanca Vaughn [facility] at 09/10/2020 13:23 EDT Electronically signed by Blanca Vaughn [facility] at 09/10/2020 13:27 EDT Electronically signed by Blanca Vaughn [facility] at 09/10/2020 13:31 EDT Electronically signed by Blanca Vaughn [facility] at 09/10/2020 13:31 EDT documented in this encounter Plan of Treatment Upcoming Encounters Date Type Department Care Team (Late st Contact Info) Description 02/13/2024 13:00 EST Office Visit [facility] Neurology - S [address] [phone] Alta Walter MD [address] [place] [address] 2 [place] [phone] documented as of this encounter Visit Diagnoses Not on filedocumented in this encounter Discontinued Medications Medication Sig Discontinue Reason Start Date End Da te deutetrabenazine (AUSTEDO) 6 mg tablet Take 6 mg by mouth daily for 7 days, THEN 6 mg 2 times daily for 21 days. Dose adjustment 08/26/2020 09/10/2020 documented as of this encounter Care Teams Youth Services Specialist Relationship Specialty Start Date End Date Yumiko Tavarez MD [address] [place] [address] PCP - General 12/29/19 documented as of this encounter
--- OUTSIDE RECORDS SUMMARY | 2024-01-28 12:22 | XMS_ITS | Encounter Summary ---
Author Organization [facility] Address [address] [place] [address] Care Team Providers Care Deputy Commonwealth'S Attorney Name Role Phone Yumiko Tavarez MD Primary Care Provider [phone] Reason for Visit * Reason Onset Date Comments Medication Management 07/21/2020 Encounter Details Date Type Department Care Team (Late st Contact Info) Description 07/21/2020 Telephone [facility] Neurology - S [address] [phone] Alta Walter MD [address] [place] [address] Level 2 [place] [phone] Medication Management Social History Tobacco Use Types [...] Refills Last Filled Start Date End Date tetrabenazine 25 mg tablet tablet Take 1 Tab by mouth 3 times daily. 90 Tab 3 07/21/2020 07/27/2020 documented in this encounter Miscellaneous Notes * Telephone Encounter - Cynthia Colunga RN - 07/21/2020 1602 EDT TC to [facility], spoke to [facility] Provided verbal order for tetrabenazine 25 mg tablets; verbal order confirmed. * Telephone Encounter - Orly Bertrand MA - 07/21/2020 9820 EDT TC received from pharmacist at [facility] requesting a call back regarding Tetrabenazine, they have a current order for 12.5 mg TID, per patient message with Dr. Thakkar on 07/16/2020, was instructed to increase medication to 25 mg TID. [facility] verbal order [phone] documented in this encounter Plan of Treatment Upcoming Encounters Date Type Department Care Team (Late st Contact Info) Description 02/13/2024 13:00 EST Office Visit [facility] Neurology - S [address] 1359[address] Alta Walter MD [address] [place] [address] Level 2 [place] [phone] documented as of this encounter Visit Diagnoses Not on filedocumented in this encounter Discontinued Medications Medication Sig Discontinue Reason Start Date End Da te tetrabenazine 12.5 mg tablet Take 1 Tab by mouth 3 times daily. Dose adjustment 06/16/2020 07/21/2020 documented as of this encounter Care Teams Deputy Commonwealth'S Attorney Relationship Specialty Start Date End Date Yumiko Tavarez MD [address] [place] [address] PCP - General 12/29/19 documented as of this encounter
--- OUTSIDE RECORDS SUMMARY | 2024-01-28 12:22 | XMS_ITS | Encounter Summary ---
Author Organization [facility] Address [address] [place] [address] Care Team Providers Care Personal Care Home Administrator Name Role Phone Yumiko Tavarez MD Primary Care Provider [phone] Reason for Visit * Reason Onset Date Comments Medication Management 10/06/2020 Encounter Details Date Type Department Care Team (Late st Contact Info) Description 10/06/2020 Telephone [facility] Neurology - S [address] [phone] Alta Walter MD [address] [place] [address] Level 2 [place] [phone] Medication Management Social History Tobacco Use Types [...] Notes * Addendum Note - Cisco Vaughn RP - 10/13/2020 1007 EDTAddended by: CISCO VAUGHN on: 10/13/2020 10:07 Modules accepted: Orders * Telephone Encounter - Cisco Vaughn [facility] - 10/08/2020 1452 EDT Incoming call from Miguelina regarding Austedo. Patient has been taking 12mg PO BID for 2 weeks at this point, denies improvement and side effects. Documentation shows that a renewal of her 12mg PO BID Rx was sent to [facility] today. Additional Rx can be sent for [...] asking for call back. Cisco Vaughn, Pharm.D. [facility] Ambulatory Pharmacist Clinician 10/08/2020 * Telephone Encounter [...] Description 02/13/2024 13:00 EST Office Visit [facility] Neurology - S [place] 1 [place] [address] Alta Walter MD 1 [facility], Level 2 [place] [address] documented as of this encounter Visit Diagnoses Not on filedocumented in this encounter Discontinued Medications Medication Sig Discontinue Reason Start Date End Da te deutetrabenazine 12 mg tablet Take 1 Tablet by mouth 2 times daily. Reorder 10/08/2020 10/13/2020 deutetrabenazine (AUSTEDO) 6 mg tablet Take 6 mg by mouth every morning. Reorder 10/08/2020 10/13/2020 documented as of this encounter Care Teams Personal Care Home Administrator Relationship Specialty Start Date End Date Yumiko Tavarez MD [address] [place] [address] PCP - General 12/29/19 documented as of this encounter
--- OUTSIDE RECORDS SUMMARY | 2024-01-28 12:22 | XMS_ITS | Encounter Summary ---
Author Organization [facility] Address [address] [place] [address] Care Team Providers Care Conference Assistant Name Role Phone Yumiko Tavarez MD Primary Care Provider [phone] Reason for Visit * Reason Onset Date Comments Appointment Related 11/18/2020 Encounter Details Date Type Department Care Team (Late st Contact Info) Description 11/18/2020 Telephone [facility] Neurology - S [address] [id number] Alta Walter MD [address] [place] [address] Level 2 [place] [address] Appointment Related Social History Tobacco [...] Telephone Encounter - Meme Lemus - 11/18/2020 3656 EDT Spoke to Miguelina, cancelled her 4 MO FUR On-SITE appt with Dr. Thakkar on Sunday11/22/2020 at 2:45 PM and rescheduled it to Sunday01/24/2021 at 4:15 PM. documented in this encounter Plan of Treatment Upcoming Encounters Date Type Department Care Team (Late st Contact Info) Description 02/13/2024 13:00 EST Office Visit [facility] Neurology - S [address] [address] Alta Walter MD [address] [place] [address], Level 2 [place] [address] documented as of this encounter Visit Diagnoses Not on filedocumented in this encounter Care Teams Conference Assistant Relationship Specialty Start Date End Date Yumiko Tavarez MD [address] [place] [address] PCP - General 12/29/19 documented as of this encounter
--- OUTSIDE RECORDS SUMMARY | 2024-01-28 12:22 | XMS_ITS | Encounter Summary ---
Author Organization [facility] Address [address] [place] [address] Care Team Providers Care Ammunition Assembly Ii Laborer Name Role Phone Yumiko Tavarez MD Primary Care Provider [phone] Reason for Visit * Reason Onset Date Comments Medications Refill 08/25/2020 Encounter Details Date Type Department Care Team (Late st Contact Info) Description 08/25/2020 Telephone [facility] Neurology - S [address] [phone] Alta Walter MD [address] [place] [address] Level 2 [place] [address] Medications Refill Social History Tobacco [...] the prescription was in the works for [employer], I confirmed that it was being worked on as recently as last night Please send script to [facility] documented in this encounter Plan of Treatment Upcoming Encounters Date Type Department Care Team (Late st Contact Info) Description 02/13/2024 13:00 EST Office Visit [facility] Neurology - S [place] [address] [place] [address] Alta Walter MD 1 [facility], Level 2 [place] [address] documented as of this encounter Visit Diagnoses Not on filedocumented in this encounter Care Teams Ammunition Assembly Ii Laborer Relationship Specialty Start Date End Date Yumiko Tavarez MD [address] [place] [address] PCP - General 12/29/19 documented as of this encounter
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
--- OUTSIDE RECORDS SUMMARY | 2024-01-28 12:22 | XMS_ITS | Encounter Summary ---
Author Organization [facility] Address [address] [place] [address] Care Team Providers Care Fur Sewer Name Role Phone Yumiko Tavarez MD Primary Care Provider [phone] Reason for Visit * Reason Onset Date Comments Appointment Related 01/28/2021 Encounter Details Date Type Department Care Team (Late st Contact Info) Description 01/28/[address] [facility] Neurology - S [address] [phone] Alta Walter MD [address] [place] [address] Level 2 [place] [address] Appointment Related Social History Tobacco Use Types [...] for 05/19/21 at 3:30pm 4 mo FUR/televideo [email or web address] zoom invite to be sent documented in this encounter Plan of Treatment Upcoming Encounters Date Type Department Care Team (Late st Contact Info) Description 02/13/2024 13:00 EST Office Visit [facility] Neurology - S [address] [address] Alta Walter MD [address] [place] [address], Level [address] [place] [address] documented as of this encounter Visit Diagnoses Not on filedocumented in this encounter Care Teams Fur Sewer Relationship Specialty Start Date End Date Yumiko Tavarez MD [address] [place] [address] PCP - General 12/29/19 documented as of this encounter
--- OUTSIDE RECORDS SUMMARY | 2024-01-28 12:22 | XMS_ITS | Encounter Summary ---
Author Organization [facility] Address [address] [place] [address] Care Team Providers Care Mate First Name Role Phone Yumiko Tavarez MD Primary Care Provider [phone] Reason for Visit * Reason Onset Date Comments Medication Management 08/15/2021 Encounter Details Date Type Department Care Team (Late st Contact Info) Description 08/15/2021 Telephone [facility] Neurology - S [address] [phone] Alta Walter MD [address] [place] [address] Level 2 [place] [phone] Medication Management Social History Tobacco Use Types [...] Max: 3 mg 90 Tablet 5 08/15/2021 2 documented in this encounter Miscellaneous Notes * Telephone Encounter - Carline Trimble RN - 08/18/2021 1248 EDT TC to patient. She did pickling operator her new prescription and was scheduled for a televideo visit with Dr. Thakkar. No other questions or concerns. * Telephone Encounter - Carline Trimble RN - 08/15/2021 1426 EDT Images from the original note were not included. Alta Thakkar MD Neuro Move Nursing Home Physician; Meme Lemus 1 hour ago (12:45) We [...] Office Visit [facility] Neurology - S [place] [address] [place] [address] Alta Walter MD [address] [place] [address], Level 2 [place] [address] documented as of this encounter Visit Diagnoses Not on filedocumented in this encounter Discontinued Medications Medication Sig Discontinue Reason Start Date End Da te clonazePAM (KLONOPIN) 0.5 mg tablet Take 2 tablets in the morning and 1 tablet at night x 1 week, then 2 tablets twice daily thereafter Dose adjustment 06/23/2021 08/15/2021 documented as of this encounter Care Teams Mate First Relationship Specialty Start Date End Date Yumiko Tavarez MD [address] [place] [address] PCP - General 12/29/19 documented as of this encounter
--- OUTSIDE RECORDS SUMMARY | 2024-01-28 12:22 | XMS_ITS | Encounter Summary ---
Author Organization [facility] Address [address] [place] [address] Care Team Providers Care Stand In Name Role Phone Yumiko Tavarez MD Primary Care Provider [phone] Reason for Visit * Reason Onset Date Comments Prior Auth, Medication 08/10/2020 Ingrezza 40 & 80mg Prior Auth, Medication 08/10/2020 Austedo 4 8mg/day Encounter Details Date Type Department Care Team (Late st Contact Info) Description 08/10/2020 Telephone [facility] Neurology - S [place] [address] [place] [phone] Alta Walter MD [address] [place] [address], Level 2 [place] [address] Prior Auth, Medication (Ingrezza 40 [...] Last Filled Start Date End Date deutetrabenazine (AUSTEDO) 6 mg tablet Take 6 mg by mouth daily for 7 days, THEN 6 mg 2 times daily for 21 days. 49 Tablet 08/26/2020 09/10/2020 documented in this encounter Miscellaneous Notes * Telephone Encounter - Gerry Wagner - 08/10/2020 0955 EDT Prior Authorization Approval Medication: Austedo 6mg Approved: 08/19/20 through 08/18/21 Authorization Number: [id number] [facility]acy[facility] Prior Authorization Submission Process Medication: Austedo 6mg Insurance: [employer]efits Date PA Request Received: 08/11/20 PA Submission Date: 08/18/20 EOC ID: [id number] Submitted by: Gerry Prior Authorization Approval Medication: Austedo 12mg Approved: 08/13/20 through 08/12/21 Authorization Number: [id number] Required Pharmacy: [facility] Preferred [facility] Prior Authorization Submission Process Medication: Austedo 12mg - 48mg/day Insurance: [facility] Date PA Request Received: 08/11/20 PA Submission Date: 08/11/20 EOC ID: [id number] Submitted by: Gerry documented in this encounter Plan of Treatment Upcoming Encounters Date Type Department Care Team (Late st Contact Info) Description 02/13/2024 13:00 EST Office Visit [facility] Neurology - S [place] [address] [place], [place] [address] Alta Walter MD [address] [place] [address], Level 2 [place] [address] documented as of this encounter Visit Diagnoses Not on filedocumented in this encounter Discontinued Medications Medication Sig Discontinue Reason Start Date End Da te tetrabenazine 25 mg tablet tablet Take 1.5 tablets 3 times daily for 2 weeks, then increase to 2 tablets three times daily Alternate therapy 07/27/2020 08/26/2020 documented as of this encounter Care Teams Stand In Relationship Specialty Start Date End Date Yumiko Tavarez MD [address] [place] [address] PCP - General 12/29/19 documented as of this encounter
--- OUTSIDE RECORDS SUMMARY | 2024-01-28 12:22 | XMS_ITS | Encounter Summary ---
Author Organization [facility] Address [address] [place] [address] Care Team Providers Care Dietist Name Role Phone Yumiko Tavarez MD Primary Care Provider [phone] Reason for Visit * Reason Onset Date Comments Medication Management 09/30/2021 Encounter Details Date Type Department Care Team (Late st Contact Info) Description 09/30/[address] [facility] Neurology - S [address] [phone] Alta Walter MD [address] [place] [address] Level 2 [place] [phone] Medication Management Social History Tobacco Use Types [...] Max: 3.5 mg. 105 Tablet 5 10/12/2021 2 documented in this encounter Miscellaneous Notes [...] Refill will be needed by October 14. [employer]TOWN[employer]art message to Miguelina requesting she request the refill next Sunday. * Telephone Encounter - Alta Laughlin RN - 10/04/2021 1324 EDT Per separate [employer] message from Miguelina 10/03/21: Alta, you asked how many Klonopin I have left. I counted and there is [address]. [address] Del Valle writes new script, could you please have her send it to [facility] on [facility] in [place]. Also if you could just shoot me [...] 0.5mg mid-day VPMS Inquiry needed? yes The [place] Prescription Monitoring System query has been completed [...] the dosage hs changed. She uses the [id number] Please call to advise. Thank you documented in this encounter Plan of Treatment Upcoming Encounters Date Type Department Care Team (Late st Contact Info) Description 02/13/2024 13:[address] Office [facility] Neurology - S [address] [address] Alta Walter MD [address] [place] [address], Level 2 [place] [phone] documented as of this encounter Visit Diagnoses Not on filedocumented in this encounter Discontinued Medications Medication Sig Discontinue Reason Start Date End Da te clonazePAM (KLONOPIN) 1 mg tablet Take 1.5 Tablets by mouth 2 times daily. Daily Max: 3 mg Reorder 09/16/2021 10/12/2021 documented as of this encounter Care Teams Dietist Relationship Specialty Start Date End Date Yumiko Tavarez MD [address] [place] [address] PCP - General 12/29/19 documented as of this encounter
--- OUTSIDE RECORDS SUMMARY | 2024-01-28 12:22 | XMS_ITS | Encounter Summary ---
Author Organization [facility] Address [address] [place] [address] Care Team Providers Care Can Operator Name Role Phone Yumiko Tavarez MD Primary Care Provider [phone] Reason for Visit * Reason Comments Follow-up Telemedicine Video Visit Encounter Details Date Type Department Care Team ([facility] st Contact Info) Description 05/19/2021 16:00 EDT Telemedicine [facility] Neurology - S [address] [phone] Alta Walter MD [address] [place] [address] Level 2 [place] [phone] Tardive dyskinesia (Primary Dx); Functional neurological symptom [...] Filled Start Date End Date clonazePAM (KLONOPIN) 0.5 mg tablet Take 1/2 tablet at bedtime x 1 week, then 1/2 tablet twice daily x 1 week, then 1/2 in AM and 1 tablet at bedtime x 1 week, then 1 tablet twice daily thereafter 60 Tablet 1 05/19/2021 2 documented in this encounter Progress Notes * Alta Thakkar MD - 05/19/2021 1600 EDT Images from the original note were not included. Type of visit: Follow-up Telehealth visit Clinician Requesting Consultation: Yumiko Tavarez MD [address] [place] [phone] Fax: Primary Laborer Ammunition Assembly: Yumiko Tavarez [address] [place] [phone] ASSESSMENT & PLAN / RECOMMENDATIONS 1. Tardive dyskinesia 2. Functional neurological symptom disorder with abnormal movement Miguelina Morales is a 56 y.o. woman who returns to the [facility] [...] difficulty - has dysphagia, referral sent to [facility] Urinary dysfunction - okay in the [...] naloxone (NARCAN) 4 mg/actuation nasal spray 1 [place] by nasal route as needed. ??? 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 Past medical, surgical, [...] following activities: Personal review of available imaging Patient/pediatric acute care unit nurse education Scanned health information available from the referring and/or primary provider(s) Review of the pertinent information in the electronic health record Care plan formulation Supportive counseling Alta Thakkar MD Attending Physician, Movement Disorders Department of Neurology documented in this encounter Plan of Treatment Upcoming Encounters Date Type Department Care Team (Late st Contact Info) Description 02/13/2024 13:00 EST Office Visit [facility] Neurology - S [place] [address] [place] [address] Alta Walter MD [address] [place] [address], Level [address] [place] [phone] documented as of this encounter Visit Diagnoses [...] documented as of this encounter Care Teams Can Operator Relationship Specialty Start Date End Date Yumiko Tavarez MD [address] [place] [address] PCP - General 12/29/19 documented as of this encounter
--- OUTSIDE RECORDS SUMMARY | 2024-01-28 12:22 | XMS_ITS | Encounter Summary ---
Author Organization [facility] Address [address] [place] [address] Care Team Providers Care Neighborhood Worker Name Role Phone Yuimko Tavarez MD Primary Care Provider [phone] Reason for Visit * Reason Onset Date Comments Appointment Related 02/28/2022 Encounter Details Date Type Department Care Team (Late st Contact Info) Description 02/28/2022 Telephone [facility] Neurology - S [address] [phone] Alta Walter MD [address] [place] [address] Level 2 [place] [phone] Appointment Related Social History Tobacco Use Types [...] for 04/13/2022 at 13:00PM TVD FUR 4M [email or web address] [phone] Zoom scheduling needed documented in this encounter Plan of Treatment Upcoming Encounters Date Type Department Care Team (Late st Contact Info) Description 02/13/2024 13:00 EST Office Visit [facility] Neurology - S [place] [address] [place] [address] Alta Walter MD [address] [place] [address], Level [address] [place] [address] documented as of this encounter Visit Diagnoses Not on filedocumented in this encounter Care Teams Neighborhood Worker Relationship Specialty Start Date End Date Yumiko Tavarez MD [address] [place] [address] PCP - General 12/29/19 documented as of this encounter
--- OUTSIDE RECORDS SUMMARY | 2024-01-28 12:22 | XMS_ITS | Encounter Summary ---
Author Organization [facility] Address [address] [place] [address] Care Team Providers Care Floor Supervisor Name Role Phone Yumiko Tavarez MD Primary Care Provider [phone] Encounter Details Date Type Department Care Team (Late st Contact Info) Description 03/28/2021 Specialty Pharmacy [facility] [address] [place], [place] [id number] Blanca Vaughn, [facility] [address] [facility] [address] [place] [address] Social History Tobacco Use Types [...] Visit [facility] Neurology - S [place] [address] [place] [phone] Alta Walter MD [address] [place] [address], Level 2 [place] [phone] documented as of this encounter Visit Diagnoses Not on filedocumented in this encounter Care Teams Floor Supervisor Relationship Specialty Start Date End Date Yumiko Tavarez MD [address] [place] [address] PCP - General 12/29/19 documented as of this encounter
--- OUTSIDE RECORDS SUMMARY | 2024-01-28 12:22 | XMS_ITS | Encounter Summary ---
Author Organization [facility] Address [address] [place] [address] Care Team Providers Care Vest Front Presser Name Role Phone Yumiko Tavarez MD Primary Care Provider [phone] Reason for Visit * Reason Onset Date Comments Medication Management 11/18/2020 Encounter Details Date Type Department Care Team (Late st Contact Info) Description 11/18/2020 Telephone [facility] Neurology - S [address] [phone] Alta Walter MD [address] [place] [address] Level 2 [place] [address] Medication Management Social History Tobacco [...] Telephone Encounter - Meme Lemus - 11/18/2020 0654 EDT Spoke to Miguelina she states the [...] [facility] - S [address] [address] Alta Walter MD [address] [place] [address], Level [address] [place] [address] documented as of this encounter Visit Diagnoses Not on filedocumented in this encounter Care Teams Vest Front Presser Relationship Specialty Start Date End Date Yumiko Tavarez MD [address] [place] [address] PCP - General 12/29/19 documented as of this encounter
--- OUTSIDE RECORDS SUMMARY | 2024-01-28 12:22 | XMS_ITS | Encounter Summary ---
Author Organization [facility] Address [address] [place] [address] Care Team Providers Care Crime Data Specialist Name Role Phone Yumiko Tavarez MD Primary Care Provider [phone] Reason for Visit * Reason Comments Follow-up Encounter Details Date Type Department Care Team ([facility] st Contact Info) Description 12/07/2022 15:00 EDT Telemedicine [facility] Neurology - S [address] [id number] Alta Walter MD [address] [place] [address] Level 2 [place] [phone] Tardive dyskinesia (Primary Dx); Postural tremor; Functional [...] for this encounter. Phone: N/A Fax: Primary Template Checker: Yumiko Tavarez [address] [place] [phone] ASSESSMENT & PLAN / RECOMMENDATIONS 1. 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 medical, surgical, [...] visit was spent on the following activities: Patient/resident care technician education Review of the pertinent information in [...] [facility] Neurology - S [address] [id number] Alta Walter MD [address] [place] [address] Level 2 [place] [phone] documented as of this encounter Visit Diagnoses Diagnosis Tardive dyskinesia- Primary Subacute dyskinesia due to drugs Postural tremor Essential and other specified forms of 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 bupropion HCl (WELLBUTRIN XL ORAL) Take 100 mg by mouth 2 times daily. 01/01/2023 added in this encounter Care Teams Crime Data Specialist Relationship Specialty Start Date End Date Yumiko Tavarez MD [address] [place] [phone] PCP - General 12/29/19 documented as of this encounter
--- OUTSIDE RECORDS SUMMARY | 2024-01-28 12:22 | XMS_ITS | Encounter Summary ---
Author Organization [facility] Address [address] [place] [address] Care Team Providers Care Assayer Helper Name Role Phone Yumiko Tavarez MD Primary Care Provider [phone] Encounter Details Date Type Department Care Team (Late st Contact Info) Description 06/23/2021 Telephone [facility] Neurology - S [address] [address] Alta Walter MD [address] [place] [address] Level 2 [place] [address] Social History Tobacco Use Types [...] for review * Telephone Encounter - Geraldo Kown - 06/23/2021 1607 EDT Pharmacy calls to [...] Info) Description 02/13/2024 13:00 EST Office Visit [facility] Neurology - S [address] [phone] Alta Walter MD 1 [facility], Level 2 [place] [address] documented as of this encounter Visit Diagnoses Not on filedocumented in this encounter Care Teams Assayer Helper Relationship Specialty Start Date End Date Yumiko Tavarez MD [address] [place] [phone] PCP - General 12/29/19 documented as of this encounter
--- OUTSIDE RECORDS SUMMARY | 2024-01-28 12:22 | XMS_ITS | Encounter Summary ---
Author Organization [facility] Address [address] [place] [address] Care Team Providers Care Inspector Machined Parts Name Role Phone Yumiko Tavarez MD Primary Care Provider [phone] Reason for Visit * Reason Onset Date Comments Appointment Related 12/13/2022 Encounter Details Date Type Department Care Team (Late st Contact Info) Description 12/13/2022 Telephone [facility] Neurology - S [address] [phone] Alta Walter MD [address] [place] [address] Level 2 [place] [phone] Appointment Related Social History Tobacco Use Types [...] Info) Description 02/13/2024 13:00 EST Office Visit [facility] Neurology - S [address] [address] Alta Walter MD [address] [place] [address] Level [address] [place] [phone] documented as of this encounter Visit Diagnoses Not on filedocumented in this encounter Care Teams Inspector Machined Parts Relationship Specialty Start Date End Date Yumiko Tavarez MD [address] [place] [phone] PCP - General 12/29/19 documented as of this encounter
--- OUTSIDE RECORDS SUMMARY | 2024-01-28 12:22 | XMS_ITS | Encounter Summary ---
Author Organization [facility] Address [address] [place] [address] Care Team Providers Care Sand And Gravel Plant Operator Name Role Phone Yumiko Tavarez MD Primary Care Provider [phone] Reason for Visit * Reason Onset Date Comments Appointment Related 08/20/2020 Encounter Details Date Type Department Care Team ([facility] Contact Info) Description 08/20/2020 Telephone [facility] Neurology - S [address] [phone] Alta Walter MD [address] [place] [address] Level 2 [place] [phone] Appointment Related Social History Tobacco Use Types [...] Description 02/13/2024 13:00 EST Office Visit [facility] Neurology - S [place] [address] [place] [address] Alta Walter MD 1 [facility], Level 2 [place] [phone] documented as of this encounter Visit Diagnoses Not on filedocumented in this encounter Care Teams Sand And Gravel Plant Operator Relationship Specialty Start Date End Date Yumiko Tavarez MD [address] [place] [phone] PCP - General 12/29/19 documented as of this encounter
--- OUTSIDE RECORDS SUMMARY | 2024-01-28 12:22 | XMS_ITS | Encounter Summary ---
Author Organization [facility] Address [address] [place] [address] Care Team Providers Care Wallpaper Inspector And Shipper Name Role Phone Yumiko Tavarez MD Primary Care Provider [phone] Reason for Visit * Reason Onset Date Comments Medications Refill 06/18/2020 Encounter Details Date Type Department Care Team (Late st Contact Info) Description 06/18/2020 Telephone [facility] Neurology - S [address] [id number] Alta Waltre MD [address] [place] [address] Level 2 [place] [address] Medications Refill Social History Tobacco [...] Encounter - Kane Parker RN - 06/21/2020 6926 EDT Spoke with Miguelina to inform her that I spoke with [facility] and provided them with the PA approval #. Informed her that if I hear anything else I will let her know. She verbalized understanding and will call me back if she hasn't heard [facility] in [facility] couple days. * Telephone Encounter - Kane Parker RN - 06/21/2020 1607 EDT Spoke with [facility]- provided them with the PA approval #. They are adding this to her chart and sending to the PA team. * Telephone Encounter - Martha Hutchinson MA - 06/21/2020 1513 EDT Received a phone call from [facility] on the refill line. Asking if the PA had been received as this pt's plan require a PA for the Rx. [phone] * Telephone Encounter - Kane Parker RN - 06/18/2020 1731 EDT Spoke with Miguelina to inform her that I sent the prescription to [facility] on 06/16/20. Informed her thatI just spoke with [facility] and they did receive the prescription and reported that it is in process.Informed her that the client service representative said that she will receive a call once it has been processed to schedule the delivery. I apologized to Miguelina for this inconvenience. She will call me back on Sunday if she still hasn't heard anything from [facility]. * Telephone Encounter - Ghazala Bowen - 06/18/2020 1634 EDT Patient requesting to have tetrabenazine 12.5 mg tablet resent to [facility] [address] documented in this encounter Plan of Treatment Upcoming Encounters Date Type Department Care Team (Late st Contact Info) Description 02/13/2024 13:00 EST Office Visit [facility] Neurology - S [address] [address] Alta Walter MD [address] [place] [address], Level 2 [place] [phone] documented as of this encounter Visit Diagnoses Not on filedocumented in this encounter Care Teams Wallpaper Inspector And Shipper Relationship Specialty Start Date End Date Yumiko Tavarez MD [address] [place] [address] PCP - General 12/29/19 documented as of this encounter
--- OUTSIDE RECORDS SUMMARY | 2024-01-28 12:22 | XMS_ITS | Encounter Summary ---
Author Organization [facility] Address [address] [place] [address] Care Team Providers Care Knitter Mechanic Name Role Phone Yumiko Tavarez MD Primary Care Provider [phone] Encounter Details Date Type Department Care Team (Late st Contact Info) Description 10/12/[address] [facility] Pathology & Laboratory Medicine - [facility] [address] [place] [address] Outr Resulting Lab, Provider Social History Tobacco [...] Visit [facility] Neurology - S [address] [address] Alta Walter MD [address] [place] [address] Level 2 [place] [address] documented as of this encounter Procedures Procedure Name Priority Date/Time Associated Diagnosis Comments CHLAMYDIA/N. GONORRHOEAE AMPLIFIED NUCLEIC ACID, THINPREP Routine 10/11/2022 13:45 EDT documented in this encounter Results * CHLAMYDIA/N. GONORRHOEAE AMPLIFIED RNA, THINPREP (10/11/2022 13:45 EDT) Neisseria gonorrhoeae Result Negative Negative 10/13/2022 14:53 EDT [facility] Chlamydia trachomatis Result Negative Negative 10/13/2022 14:53 EDT [facility] Papanicolaou smear specimen (specimen) CERVIX UTERI STRUCTURE / Unknown 10/11/2022 13:45 EDT 10/13/2022 10:17 EDT us Provider Outr Resulting Lab MICROBIOLOGY - GENER AL ORDERABLES Final Result Performing Organization Address City/State/[facility] Co de Phone Number [facility] [address] [place] [address] documented in this encounter Visit Diagnoses Not on filedocumented in this encounter Care Teams Knitter Mechanic Relationship Specialty Start Date End Date Yumiko Tavarez MD [address] [place] [address] PCP - General 12/29/19 documented as of this encounter
--- OUTSIDE RECORDS SUMMARY | 2024-01-28 12:22 | XMS_ITS | Encounter Summary ---
Author Organization [facility] Address [address] [place] [address] Care Team Providers Care Internal Audit Senior Manager Name Role Phone Yumiko Tavarez MD Primary Care Provider [phone] Reason for Visit * Reason Comments Other Encounter Details Date Type Department Care Team (Late st Contact Info) Description 09/03/2020 Refill [facility] Neurology - S [address] [id number] Alta Walter MD [address] [place] [phone] Other Social History Tobacco Use Types Packs/Day [...] Info) Description 02/13/2024 13:00 EST Office Visit [facility] S [address] [id number] Alta Walter MD [address] [place] [phone] documented as of this encounter Visit Diagnoses Not on filedocumented in this encounter Care Teams Internal Audit Senior Manager Relationship Specialty Start Date End Date Yumiko Tavarez MD [address] [place] [address] PCP - General 12/29/19 documented as of this encounter
--- OUTSIDE RECORDS SUMMARY | 2024-01-28 12:22 | XMS_ITS | Encounter Summary ---
Author Organization [facility] Address [address] [place] [address] Care Team Providers Care Credit Clerk Name Role Phone Yumiko Tavarez MD Primary Care Provider [phone] Reason for Visit * Reason Comments Follow-up Encounter Details Date Type Department Care Team (Late st Contact Info) Description 07/05/2023 13:00 EDT Telemedicine [facility] Neurology - S [address] [phone] Alta Walter MD [address] [place] [address] Level 2 [place] [phone] Tardive dyskinesia (Primary Dx); Functional neurological symptom [...] for this encounter. Phone: N/A Fax: Primary Health Assistant: Yumiko Tavarez [address] [place] [phone] ASSESSMENT & PLAN / RECOMMENDATIONS 1. Tardive dyskinesia 2. Functional neurological symptom disorder with abnormal movement 3. Postural tremor Miguelina Morales is a 57 y.o. woman who returns to the [facility] clinic for evaluation and [...] y.o. 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 Past medical, surgical, [...] visit was spent on the following activities: Patient/grounds caretaker education Review of the pertinent information in [...] Info) Description 02/13/2024 13:00 EST Office Visit [facility] Neurology - S [place] [address] [place] [address] Alta Walter MD [address] [place] [address], Level [address] [place] [address] documented as of this encounter Visit Diagnoses Diagnosis Tardive dyskinesia- Primary Subacute dyskinesia due to drugs 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
--- OUTSIDE RECORDS SUMMARY | 2024-01-28 12:22 | XMS_ITS | Encounter Summary ---
Author Organization [facility] Address [address] [place] [address] Care Team Providers Care Clipper Counters Name Role Phone Yumiko Tavarez MD Primary Care Provider [phone] Encounter Details Date Type Department Care Team (Late st Contact Info) Description 10/25/2020 Specialty Pharmacy [facility] - [facility] [address] [place], [place] [phone] Blanca Vaughn, [facility] [address] [facility] [address] [place] [phone] Social History Tobacco Use Types Packs/Day Years [...] Office Visit [facility] Neurology - S [place] [address] [place] [phone] Alta Walter MD [address] [place] [address], Level 2 [place] [phone] documented as of this encounter Visit Diagnoses Not on filedocumented in this encounter Care Teams Clipper Counters Relationship Specialty Start Date End Date Yumiko Tavarez MD [address] [place] [address] PCP - General 12/29/19 documented as of this encounter
--- OUTSIDE RECORDS SUMMARY | 2024-01-28 12:22 | XMS_ITS | Encounter Summary ---
Author Organization [facility] Address [address] [place] [address] Care Team Providers Care Fish Stringer Assembler Name Role Phone Yumiko Tavarez MD Primary Care Provider [phone] Encounter Details Date Type Department Care Team (Latest Contact Info) Description 03/02/2021 Lab Requisition [facility] Pathology & Laboratory Medicine - [facility] [address] [place], [place] [address] Yumiko Tavarez MD [address] [place] [phone] Encounter for general adult medical examination without [...] [facility] Neu[facility] - S [place] [address] [place] [address] Alta Walter MD [address] [place] [address] Level 2 [place] [address] documented as of this encounter [...] PCR Positive( A) Negative 03/10/2021 15:14 EST [facility] Comment:E6 OR E7 mRNA from o ne or more types of HPV types 16,18,31,33,35,39,45,51,52,56,58,59,66, and 68 is detected by liquor department manager mediated amplification. High and intermediate risk HPV types are associated with most squamous intraepithelial lesions and cervical cancers. Papanicolaou smear specimen (specimen) CERVIX UTERI STRUCTURE / Unknown 02/28/2021 16:30 EST 03/08/2021 15:40 EST us Yumiko Tavarez MD MICROBIOLOGY - GENERAL ORDERAB LES Final Result [facility] [address] [place] [address] * PAP TEST (02/28/2021 16:30 EST) Specimens A. Cervix and/or Endocervix , ThinPrep Imaging System with Manual Evaluation 03/10/2021 15:14 EST [facility] Specimen Adequacy Satisfactory for Evaluation - transformation zone component present 03/10/2021 15:14 EST [facility] General Categorization Negative for intraepithelial lesion or malignancy 03/10/2021 15:14 [facility] Attestation . 03/10/2021 15:14 [facility] at 1514 Clinical History See below 03/10/19 22 15:14 [facility] HPV The result for the Human Papillomavirus (HPV) Detection-High Risk Types is Positive . E6 OR E7 mRNA from one or more types of HPV types 16,18,31,33,35,39 ,45,51,52,56,58,5 9,66, and 68 is detected by liquor department manager mediated amplification. High and intermediate risk HPV types are associated with most squamous intraepithelial lesions and cervical cancers. Testing was performed on specimen [id number] and was resulted on 03/10/2021 0708 EST by ANTHONY, LAB INSTRUMENT RESULTS IN 03/10/2021 15:14 [facility] Performing Lab [facility] 03/10/2021 15:14 [facility] Scanned Images 03/10/2021 15:14 [facility] Papanicolaou smear specimen (specimen) CERVIX UTERI STRUCTURE / Unknown 02/28/2021 16:30 EST 03/02/2021 8:58 EST us Yumiko Tavarez MD PATHOLOGY ORDERABLES Final Res ult [facility] [address] [place] [address] documented in this encounter Visit Diagnoses Diagnosis Encounter for general adult medical examination without abnormal findings Unspecified general medical examination Encounter for screening for malignant neoplasm of cervix Screening for malignant neoplasm of the cervix Encounter for gynecological examination (general) (routine) without abnormal findings documented in this encounter Care Teams Fish Stringer Assembler Relationship Specialty Start Date End Date Yumiko Tavarez MD [address] [place] [phone] PCP - General 12/29/19 documented as of this encounter
--- OUTSIDE RECORDS SUMMARY | 2024-01-28 12:22 | XMS_ITS | Encounter Summary ---
Author Organization [facility] Address [address] [place] [address] Care Team Providers Care Indirect Sales Representative Name Role Phone Yumiko Tavarez MD Primary Care Provider [phone] Reason for Visit * Reason Onset Date Comments Prior Auth, Medication 03/01/2021 Ingrezza Encounter Details Date Type Department Care Team ([facility] st Contact Info) Description 03/01/[address] [facility] Neurology - S [address] [phone] Alta Walter MD [address] [place] [address], Level 2 [place] [address] Prior Auth, Medication (Ingrezza ) [...] Refills Last Filled Start Date End Date valbenazine (INGREZZA) 80 mg capsule Take 80 mg by mouth daily. 30 capsule 1 03/02/2021 2 valbenazine (INGREZZA INITIATION PACK) 40 mg (7)- 80 mg (21) capsule,dose pack Take 1 capsule by mouth daily. Take 40mg by mouth daily for 1 week, then increase to 80mg daily thereafter 28 capsule 03/02/2021 2 valbenazine (INGREZZA) 80 mg capsule Take 80 mg by mouth daily. 30 capsule 1 03/02/2021 1 valbenazine (INGREZZA INITIATION PACK) 40 mg (7)- 80 mg (21) capsule,dose pack Take 1 capsule by mouth daily. Take 40mg by mouth daily for 1 week, then increase to 80mg daily thereafter 28 capsule 03/02/2021 1 documented in this encounter Miscellaneous Notes * Telephone Encounter - AbyLigia - 03/03/2021 1620 EST Prior Authorization Approval Medication: Ingrezza 80mg maintenance Insurance Name:[employer] Insurance Type: Commercial Approval Dates: 03/03/2021-02/28/2022 Authorization Number: [id number] Benefits Information: [facility] able to fill? : Yes Required Pharmacy: [facility] Additional Info/Other Notes: * Telephone Encounter - Edi Vega - 03/03/2021 1453 EST Prior Authorization Submission Process ?? Medication: Ingrezza 80mg daily - continuation Insurance: [facility] Insurance Type: Commercial Date PA Request Received: 02/11/21 PA Submission Date: 03/03/21 [facility] Mooney: n/a, submitting via PromptPA Notes: [facility] ID: [id number] Submitted by: Edi Vega Phone: [phone] * Telephone Encounter - Blanca Vaughn RPH - 03/02/2021 1313 EST [facility] Neurology: Medication Therapy Initiation Miguelina Morales is a 56 y.o. female who will be initiating treatment with Ingrezza for Tardive Dyskinesia. Anticipated start date: Mar 2020 Filling Pharmacy: [facility] Specialty Pharmacy I performed a [...] and maintenance dose have been sent to [facility]. Blanca Vaughn, Pharm.D. [facility] Ambulatory Pharmacist Clinician - Neurology 03/02/2021 ADDENDUM: [facility] is unable to purchase/dispense Ingezza. Prescriptions rerouted to [facility] Pharmacy,override obtained my pharmacy staff so medication may be filled by [facility] SPR[facility]. Medication will be delivered to patient Sunday03/07/2021 * Telephone Encounter - Gerry Wagner - 03/01/2021 1340 EST Prior Authorization Approval Medication: Ingrezza Insurance Name: [employer] Insurance Type: Commercial Approval Dates: 03/01/21 to 02/28/22 Authorization Number: [id number] Benefits Information: [facility] able to fill? : No Required Pharmacy: [facility] Prior Authorization Submission Process - Urgent Medication: Ingrezza 40mg & 80mg Insurance: [employer] Insurance Type: Commercial Date PA Request Received: 02/11/21 PA Submission Date: 03/01/21 [facility] Mooney: n/a, submitting via portal Notes: [facility] ID: [id number] Submitted by: Gerry Phone: [phone] documented in this encounter Plan of Treatment Upcoming Encounters Date Type Department Care Team (Late st Contact Info) Description 02/13/2024 13:[address] [facility] Neurology - S [place] [address] [place] [address] Alta Walter MD [address] [place] [address], Level [address] [place] [phone] documented as of this encounter Visit Diagnoses [...] documented as of this encounter Care Teams Indirect Sales Representative Relationship Specialty Start Date End Date Yumiko Tavarez MD [address] [place] [phone] PCP - General 10/26/20 documented as of this encounter
--- OUTSIDE RECORDS SUMMARY | 2024-01-28 12:22 | XMS_ITS | Encounter Summary ---
Author Organization [facility] Address [address] [place] [address] Care Team Providers Care Engineer Rf Deployment Name Role Phone Yumiko Tavarez MD Primary Care Provider Reason for Visit * Reason Comments Follow-up Telemedicine Video Visit Encounter Details Date Type Department Care Team ([facility] st Contact Info) Description 07/22/2020 10:00 EDT Telemedicine [facility] Neurology - S [address] [id number] Alta Walter MD [address] [place] [address] Level 2 [place] [address] Tardive dyskinesia (Primary Dx); Tremor; Peripheral polyneuropathy [...] Clinician Requesting Consultation: Yumiko Tavarez MD [address] [place] [phone] Fax: Primary Salesperson Used Cars: Yumiko Tavarez [address] [facility] [address] ASSESSMENT & PLAN / RECOMMENDATIONS 1. Tardive [...] able to review both the previous DatScan ([facility]) in comparison to the more recent one ([facility]). There is a clear difference that [...] referral sent to [facility] Current Medications: Outpatient Medications Marked as [...] naloxone (NARCAN) 4 mg/actuation nasal spray 1 [place] by nasal route as needed. ??? 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 If there are any questions, please contact the office at [phone]. Alta Thakkar MD Attending Physician, Movement Disorders Department of Neurology documented in this encounter Plan of Treatment Upcoming Encounters Date Type Department Care Team (Late st Contact Info) Description 02/13/2024 13:00 EST Office Visit [facility] Neurology - S [place] [address] [place], [place] [phone] Alta Walter MD [address] [place] [address] [address] 2 [place] [address] documented as of this encounter Visit Diagnoses Diagnosis Tardive dyskinesia- Primary Subacute dyskinesia due to drugs Tremor Abnormal involuntary movements Peripheral polyneuropathy Unspecified hereditary and idiopathic peripheral neuropathy documented in this encounter Care Teams Engineer Rf Deployment Relationship Specialty Start Date End Date Yumiko Tavarez MD [address] [place] [address] PCP - General 12/29/19 documented as of this encounter
--- OUTSIDE RECORDS SUMMARY | 2024-01-28 12:23 | XMS_ITS | Encounter Summary ---
Author Organization [facility] Address [address] [place] [address] Care Team Providers Care Doctor Of Optometry Name Role Phone Unknown, Provider Primary Care Provider Unava ilable Encounter Details Date Type Department Care Team (Late st Contact Info) Description 05/29/2007 Results Only [facility] - Maple conversion [address] [place] [address] Jerri Topete MD [address] [place] [address] [place] [address] Social History Tobacco Use Types Packs/Day Years Used Date Smoking Tobacco: Never Assessed Comments Unknown Sex and Gender Information Value [...] [facility] - [address] [place] [address] [place], [place] [address] Alta Walter MD [address] [place] [address], Level [address] [place] [address] documented as of this encounter Procedures Procedure Name Priority Date/Time Associated Diagnosis Comments HPV DETECTION, HIGH RISK TYPES Routine 05/29/2007 13:40 EDT CYTOPATHOLOGY Routine 05/29/2007 0:00 EDT documented in this encounter Results * HUMAN PAPILLOMA VIRUS DNA TEST (05/29/2007 13:40 EDT) Specimen Description Cervix, ThinPrep vial [facility] Result Negative for HPV types 16, 18, 31, 33, 35, 39, 45, 51, 52, 56, 58, 59, and 68. [facility] Report Status Final [id number] [facility] 05/29/2007 13:4 0 EDT 06/04/2007 14:32 EDT us Jerri Topete MD MICROBIOLOGY - GENERAL ORDERABL ES Final Result [facility] [address] [place] [address] * CYTOPATHOLOGY (05/29/2007 0:00 EDT) Pathology Report: CYTOPATHOLOGY REPORT Reports generated via electronic interface contain original data; however they are lacking the format of the original report. Caution should be taken when reading/interpreti ng unformatted reports. Name: ? ALMAZAN, CYDNEY ? Accession #: ? [id number] : ? 1965 (Age: 42) ??F ?Collect Date: ? 05/29/2007 Location: ? [facility] ? Receive Date: ? 05/30/2007 Provider: ?JERRI TOPETE MD Copy to: ? Specimen/Source: ?ThinPrep Pap Test, Cervix/Endocervix, processed on [employer] ThinPrep Imaging System, with manual evaluation Last [...] End of Report [facility] 05/29/2007 05/30/2007 us Jerri Topete MD PATHOLOGY ORDERABLES Final Resu lt [facility] [address] [place] [address] documented in this encounter Visit Diagnoses Not on filedocumented in this encounter Care Teams Doctor Of Optometry Relationship Specialty Start Date End Date Unknown, Provider, PCP - General 08/05/08 12/28/19 documented as of this encounter
--- OUTSIDE RECORDS SUMMARY | 2024-01-28 12:23 | XMS_ITS | Encounter Summary ---
Author Organization [facility] Address [address] [place] [address] Care Team Providers Care Hot Plate Plywood Press Laborer Name Role Phone Yumiko Tavarez MD Primary Care Provider [phone] Reason for Visit * Reason Onset Date Comments Other 05/21/2020 Encounter Details Date Type Department Care Team (Late st Contact Info) Description 05/21/2020 Telephone [facility] Neurology - S [address] [phone] Alta Walter MD [address] [place] [address] [address] 2 [place] [address] Other Social History Tobacco Use Types Packs/Day Years Used Date Smoking Tobacco: Every Day Cigarettes 1 Interpersonal Safety Answer Date Record ed Physically [...] nurse has not heard back from Dr [place] yet. She will reach out when received response back. documented in this encounter Plan of Treatment Upcoming Encounters Date Type Department Care Team (Late st Contact Info) Description 02/13/2024 13:00 EST Office Visit [facility] Neurology - S [address] [address] Alta Walter MD [address] [place] [address] [address] [place] [address] documented as of this encounter Visit Diagnoses Not on filedocumented in this encounter Care Teams Hot Plate Plywood Press Laborer Relationship Specialty Start Date End Date Yumiko Tavarez MD [address] [place] [address] PCP - General 12/29/19 documented as of this encounter
--- OUTSIDE RECORDS SUMMARY | 2024-01-28 12:23 | XMS_ITS | Encounter Summary ---
Author Organization [facility] Address [address] [place] [address] Care Team Providers Care Food Service Specialist Name Role Phone Unknown, Provider Primary Care Provider Unava ilable Encounter Details Date Type Department Care Team (Late st Contact Info) Description 03/08/2016 Results Only [facility] [phone] Salvatore Rosario MD [address] [place] [address] [address] [place], [place] [phone] Social History Tobacco Use Types Packs/Day Years [...] [facility] Neurology - S [place] [address] [place] [phone] lAta Walter MD [address] [place] [address], Level [address] [place] [phone] documented as of this encounter Procedures Procedure [...] 1.5 cm in greatest dimension. ? Two student services representative sections and the inked en face cystic duct margin are submitted in 1. Dr. Corona 03/09/2016 6:00 PM End of Report [facility] 03/08/2016 20:4 5 EST 03/08/2016 20:45 EST us Salvatore Rosario MD PATHOLOGY ORDERABLES Fin al Result Performing Organization Address City/State/[facility] Co de Phone Number [facility] [address] [place] [address] documented in this encounter Visit Diagnoses Not on filedocumented in this encounter Care Teams Food Service Specialist Relationship Specialty Start Date End Date Unknown, Provider, PCP - General 08/05/08 12/28/19 documented as of this encounter
--- OUTSIDE RECORDS SUMMARY | 2024-01-28 12:23 | XMS_ITS | Encounter Summary ---
[facility] [place] [address] Care Team Providers Care Rehab Services Aide Name Role Phone Yumiko Tavarez MD Primary Care Provider [phone] Encounter Details Date Type Department Care Team (Late st Contact Info) Description 01/10/2024 Telephone Ne[place]rology [place] [address] Sue Argueta RN Social History Tobacco Use Types Packs/Day Years [...] encounter Miscellaneous Notes * Telephone Encounter - Sue Argueta RN - 01/10/2024 3:51 PM ESTSummary: urinary symptoms-referral to [facility] urology Ms. Mcintyre called into the nephrology clinic stating that she's had symptoms for awhile now. Retention, unable to urinate, pressure/frequency. PCP was to put in a urology referral. [facility] has not received any referral. RN called PCP on Sunday (01/09/2024), PCP office stated they faxed the referralon 01/02 but DH did not receive. PCP office refaxed the referral. RN called urology today, they did receive the referral on 01/09/2024 and has Ms. Mcintyre scheduled for Feb 03 at 1300. RN updated Ms. Mcintyre on such, during our conversation, she states that she's had a lot of pressure within her jv area. Upon palpation she noticed a ball like knot within the area. RN updated urology on such. Urology placed patient on the cancellation list in case there is any appointments to come available in the near future. documented in this encounter Plan of Treatment Upcoming Encounters Date Type Department Care Team (Late st Contact Info) Description 02/04/2024 1:00 PM EST [place] [address] [address]an [address] [facility] [place] [address] documented as of this encounter Visit Diagnoses Not on filedocumented in this encounter Care Teams Rehab Services Aide Relationship Specialty Start Date End Date Yumiko Tavarez MD [address] [place] [address] PCP - General Family Medicine 07/07/16 documented as of this encounter
--- OUTSIDE RECORDS SUMMARY | 2024-01-28 12:23 | XMS_ITS | Encounter Summary ---
[place] [address] Care Team Providers Care Supervisor Final Name Role Phone Yumiko Tavarez MD Primary Care Provider Encounter Details Date Type Department Care Team (Latest Contact Info) Description 01/03/2024 Travel Social History Tobacco Use Types Packs/Day [...] 1:00 PM EST Office [place] [address] Alta Caban APRN [facility] [place] [address] documented as of this encounter Visit Diagnoses Not on filedocumented in this encounter Care Teams Supervisor Final Relationship Specialty Start Date End Date Yumiko Tavarez MD [address] [place] [address] PCP - General Family Medicine 07/07/16 documented as of this encounter
--- OUTSIDE RECORDS SUMMARY | 2024-01-28 12:23 | XMS_ITS | Encounter Summary ---
Author Organization [facility] Address [address] [place] [address] Care Team Providers Care Certified Marine Mechanic Name Role Phone Yumiko Tavarez MD Primary Care Provider [phone] Reason for Referral * Consult (Routine/Next Available) - Closed Specialty Diagnoses / Procedures Referred By [place] dennis Referred To Contact Neurology Diagnoses Tardive dyskinesia Functional neurological symptom disorder with abnormal movement Anxiety Alta Walter MD Phone: tel: fax: Cat Dorantes MD Phone: tel: fax: Referral ID Status Reason Start Date Expiration Date V isits Requested Visits Authorized [id number] Closed Specialty Services Required 05/26/2020 1 1 Question Answer Reason for Request: Patient with history of anxiety, depression, PTSD who 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 Reason for Visit * Reason Comments Follow-up Encounter Details Date Type Department Care Team (Late st Contact Info) Description 05/26/2020 10:30 EDT Telemedicine [facility] Neurology - S [place] [address] [place] [address] Alta Walter MD [address] [place] [address], Level 2 [place] [address] Tardive dyskinesia (Primary Dx); Functional [...] Last Filled Start Date End Date tetrabenazine 12.5 mg tablet Take 1 Tab by mouth 3 times daily. 90 Tab 3 05/26/2020 05/31/2020 documented in this encounter Progress Notes * Alta Thakkar MD - 05/26/2020 1030 EDT Images from the original note were not included. Type of visit: Follow-up visit Clinician Requesting Consultation: No referring provider defined for this encounter. Phone: N/A Fax: Primary Loan Manager: Yumiko Tavarez [address] [place] [phone] ASSESSMENT & PLAN / RECOMMENDATIONS 1. Tardive dyskinesia 2. Functional neurological symptom disorder with abnormal movement 3. Anxiety Miguelina Morales is a 55 y.o. woman [place] - has dysphagia, referral sent to [facility] Current Medications: Outpatient Medications Marked as [...] naloxone (NARCAN) 4 mg/actuation nasal spray 1 [place] by nasal route as needed. ??? 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 If there are any questions, please contact the office at [phone]. Alta Thakkar MD Attending Physician, Movement Disorders Department of Neurology documented in this encounter Plan of Treatment Upcoming Encounters Date Type Department Care Team (Late st Contact Info) Description 02/13/2024 13:00 EST Office Visit [facility] Neurology - S [address] [phone] Alta Walter MD [address] [place] [address] [address] [place] [phone] Scheduled Referrals Name Type Priority Associated Diagnoses [...] documented as of this encounter Care Teams Certified Marine Mechanic Relationship Specialty Start Date End Date Yumiko Tavarez MD [address] [place] [phone] PCP - General 12/29/19 documented as of this encounter
--- OUTSIDE RECORDS SUMMARY | 2024-01-28 12:23 | XMS_ITS | Encounter Summary ---
Author Organization [facility] Address [address] [place] [address] Care Team Providers Care Shopping Inspector Name Role Phone Unknown, Provider Primary Care Provider Yumiko Loomis MD Primary Care Provider [phone] Reason for Visit * Reason Onset Date Comments Referral Request 06/19/2019 Encounter Details Date Type Department Care Team ([facility] st Contact Info) Description 06/19/2019 Telephone [facility] Neurology - S [address] [phone] Unknown, Provider, MD Referral Request Social History Tobacco Use Types [...] Marshall - 06/20/2019 1533 EDT Dillon from [facility] calling to let Johana know that the Pt would like to keep referral with [facility] for second opinion and will resend updated referral in September when patient sees them for appt. * Telephone Encounter - Marlene Sen - 06/20/2019 1140 EDT Dillon calls regarding her phone call from yesterday asking for Johana. I will forward to Johana :) * Telephone Encounter - Johana Govea - 06/19/2019 1559 EDT Calling referring office ([phone]) to inform them of the doctor's opinion [...] ideally served with follow up care with [facility] until we can get her on site I can see the patient with the caveat that the recommendations may be limited documented in this encounter Plan of Treatment Upcoming Encounters Date Type Department Care Team (Late st Contact Info) Description 02/13/2024 13:00 EST Office Visit [facility] Neurology - S [address] [phone] Alta Walter MD [address] [place] [address], Level [address] [place] [address] documented as of this encounter Visit Diagnoses Not on filedocumented in this encounter Care Teams Shopping Inspector Relationship Specialty Start Date End Date Unknown, Provider, PCP - General 08/05/08 12/28/19 Yumiko Tavarez MD [address] [place] [address] PCP - General 12/29/19 documented as of this encounter
--- OUTSIDE RECORDS SUMMARY | 2024-01-28 12:23 | XMS_ITS | Clinical Summary ---
Author Organization [facility] Address [facility] [place] [address] Care Team Providers Care Packaging Line Attendant Name Role Phone Yumiko Tavarez MD Primary Care Provider [phone] Allergies Active Allergy Reactions Criticality Noted Date [...] Tablet, Chewable Take 2 tablets by mouth daily. Active zolpidem (AMBIEN) 10 mg Tablet Take [...] the evening Active naloxone (Narcan) 4 mg/actuation [place], Non-Aerosol 1 spray by Nasal route as needed. Active acetaminophen (Tylenol) 500 mg tablet Take 1,000 mg by mouth every 6 hours as needed for Pain. Active cholecalciferol, Vitamin D3, 25 mcg (1,000 unit) Capsule Take by mouth daily. Active ALPRAZolam (Xanax) 1 mg tablet Take 1 tablet by mouth Daily at Noon. 12/22/2023 Active Active Problems Problem Noted Date Diagnosed Date Stage 3a chronic kidney disease 09/03/2022 Hyperparathyroidism 09/03/2022 Anxiety 05/26/2020 Functional neurological symp lizz disorder with abnormal movement 05/26/2020 Tardive dyskinesia 05/26/2020 Peripheral neuropathy 02/24/2020 PTSD (post-traumatic stress disorder) 02/24/2020 Primary parkinsonism 12/18/2016 Chorea 11/03/2016 Chronic pain syndrome 03/17/2014 Encounters Date Type Department Care Team Description 01/25/2024 Telephone Urology at [place] [phone] Joao Lamb 01/22/2024 Transcribe Orders eDH Incoming Referrals [phone] Yumiko Tavarez MD Cervicalgia 01/10/2024 Telephone [place]phrology [place] [address] Sue Argueta, RN 01/09/2024 Transcribe Orders eDH Incoming Referrals [phone] Yumiko Tavarez MD Retention of urine, unspecified 01/03/2024 11:30 AM EDT Office Visit Nephrology [place] [address] Rakesh swann, Nenita W, UNIFIED COMMUNICATIONS ARCHITECT Hypertension, unspecified type; Hyperparathyroidism; Stage 3 chronic kidney disease, unspecified whether stage 3a or 3b CKD; Tardive dyskinesia; Functional neurological symptom disorder with abnormal movement 01/03/2024 10:00 AM EDT Laboratory Appointment Lab [address] [place] [address] Stage 3a chronic kidney disease; Stage 3 chronic kidney disease, unspecified whether stage 3a or 3b CKD 01/03/2024 Travel from Last 3 Months Family History Medical History Relation Comments Mental [...] Sign Reading Time Taken Comments Blood Pressure 114/74 01/03/2024 11:41 AM EDT Pulse 82 01/03/2024 11:41 AM EDT Temperature - - Respiratory Rate 20 08/14/2022 12:58 PM EDT Oxygen Saturation 100% 08/14/2022 12:58 PM EDT Inhaled Oxygen Concentration - - Weight 59 kg (130 lb) 01/03/2024 11:41 AM EDT Height 149.9 cm (4' 11) 01/03/2024 11:41 AM EDT Body Mass Index 26.26 01/03/2024 11:41 AM EDT Plan of Treatment Upcoming Encounters Date Type Department Care Team (Late st Contact Info) Description 02/04/2024 1:00 PM EST Office Visit Urology at [facility] [place] [address] Alta Caban APRN [facility] [address] Health Maintenance Due Date Last Done Comments CT Colonography 1963 Colonoscopy 1963 Colorectal Cancer Screening 1965 FIT DNA 1965 FIT 1965 Sigmoidoscopy (10 year) with FIT yearly 1965 Sigmoidoscopy 1965 Pneumococcal Vaccine: At-Ris k 5-64yrs (1 of 2 - PCV) 1969 HIV screen 1981 Hepatitis C Screening 1981 Lipid Screening 1981 Tetanus/Diphtheria/Pertussis Vaccines (1 - Tdap) 1982 HPV test 1993 PAP Smear 1993 Breast Cancer Share Decision Needed 2003 Breast Cancer screening 2003 Zoster vaccine (1 of 2) 2013 Advance Directive 2018 Covid-19 Vaccine ( - 2023-2 5 season) 2023 Influenza (Flu) vaccine (1 o f 1 - Influenza standard series) 11/04/2023 Diabetes Screening (HgbA1C o r Glucose) 01/02/2027 01/03/2024, 05/08/2023, 01/02/2023, Additional history exists Procedures Procedure Name Priority Date/Time Associated Diagnosis Comments URINALYSIS BEAKER MICROSCOPIC ([facility]) Routine 01/03/2024 10:43 AM EDT Stage 3a chronic kidney disease URINALYSIS MICROSCOPIC EXAM Routine 01/03/2024 10:43 AM EDT Stage 3a chronic kidney disease URINALYSIS DIPSTICK Routine 01/03/2024 1 0:43 AM EDT Stage 3a chronic kidney disease ALBUMIN LEVEL Routine 01/03/2024 10:43 AM EDT Stage 3a chronic kidney disease BASIC METABOLIC PANEL Routine 01/03/2024 10:43 AM EDT Stage 3a chronic kidney disease CBC (WITH DIFF) Routine 01/03/2024 10:43 AM EDT Stage 3a chronic kidney disease VITAMIN D, 25-HYDROXY Routine 01/03/2024 10:43 AM EDT Stage 3a chronic kidney disease U ALBUMIN/CRE RATIO Routine 01/03/2024 1 0:43 AM EDT Stage 3a chronic kidney disease URIC ACID Routine 01/03/2024 10:43 AM EDT Stage 3a chronic kidney disease PTH Routine 01/03/2024 10:43 AM EDT Stage 3a chronic kidney disease PROTEIN/CREATININE RATIO, URINE Routine 01/03/2024 10:43 AM EDT Stage 3a chronic kidney disease PHOSPHORUS Routine 01/03/2024 10:43 AM EDT Stage 3a chronic kidney disease _URINALYSIS WITH MICRSOCOPIC Routine 01/03/2024 10:43 AM EDT Stage 3a chronic kidney disease from Last 3 Months Results * (ABNORMAL) Urinalysis Microscopic (01/03/2024 10:43 AM EDT) RBC, Urine 1 0 - 4 /HPF 01/03/2024 12:03 PM EDT [facility] WBC, Urine 35(H) 0 - 5 /HPF 01/03/2024 12:03 PM EDT [facility] Squamous Epithelial Cells, Urine 7(H) 0 - 5 /HPF 01/03/2024 12:03 PM EDT [facility] Hyaline Casts, Urine 3(H) 0 - 2 /LPF 01/03/2024 12:03 PM EDT [facility] Comment 01/03/2024 12:03 PM EDT [facility] Comment:Interpret results wi th caution, microscopic results are from a suboptimal specimen. Bacteria, Urine Moderate( A) None /HPF 01/03/2024 12:03 PM EDT [facility] Urine Non Blood Collection / Unknown 01/03/2024 10:43 AM EDT 01/03/2024 10:45 AM EDT Nenita Grimes APRN URINE ORD ERABLES Performing Organization Address City/[facility] Co de Phone Number [facility] [place] [address] * Urinalysis Microscopic Exam (01/03/2024 10:43 AM EDT) Urine Non Blood Collection / Unknown 01/03/2024 10:43 AM EDT 01/03/2024 10:45 AM EDT Nenita Grimes APRN URINE ORD ERABLES Performing Organization Address City/[facility]/ZIP Co de Phone Number [facility] [place] [address] * (ABNORMAL) PTH (01/03/2024 10:43 AM EDT) Parathyroid Hormone 76(H) 15 - 65 pg/mL 01/03/2024 11:25 AM EDT [facility] Blood VENOUS BLOOD SPECIMEN / Unknown Venipuncture / Unknown 01/03/2024 10:43 AM EDT 01/03/2024 10:45 AM EDT Nenita Grimes APRN CHEMISTRY ORDERABLES Performing Organization Address City/[facility]/ZIP Co de Phone Number [facility] [place] [address] * Protein/Creatinine Ratio, urine (01/03/2024 10:43 AM EDT) Protein, Urine 6 0 - 12 mg/dL 01/03/2024 11:26 AM EDT [facility] Creatinine, Urine 119 mg/dL 01/03/2024 11:26 AM EDT [facility] Protein / Creatinine Ratio, Urine 0.1 ratio 01/03/2024 11:26 AM EDT [facility] Urine Non Blood Collection / Unknown 01/03/2024 10:43 AM EDT 01/03/2024 10:45 AM EDT Nenita Grimes APRN URINE ORD ERABLES Performing Organization Address City/[facility]/ZIP Co de Phone Number [facility] [place] [address] * U Albumin/Cre Ratio (01/03/2024 10:43 AM EDT) Albumin, Urine <3.0 mg/L 01/03/2024 11:26 AM EDT [facility] Creatinine, Urine 119 mg/dL 01/03/2024 11:26 AM EDT [facility] Albumin / Creatinine Ratio, Urine 01/03/2024 11:26 AM EDT [facility] Comment:Not Calculated. Urine Non Blood Collection / Unknown 01/03/2024 10:43 AM EDT 01/03/2024 10:45 AM EDT Nenita Hany Cornelio LERNER URINE ORD ERABLES Performing Organization Address City/[facility]/ZIP Co de Phone Number [facility] [place] [address] * Vitamin D, 25-Hydroxy (01/03/2024 10:43 AM EDT) Vitamin D Total 25 OH 44 21 - 100 ng/ml 01/03/2024 11:39 AM EDT [facility] Vitamin D Total 25 OH Interp Sufficient 01/03/2024 11:39 AM EDT [facility] Blood VENOUS BLOOD SPECIMEN / Unknown Venipuncture / Unknown 01/03/2024 10:43 AM EDT 01/03/2024 10:45 AM EDT Nenita Grimes APRN CHEMISTRY ORDERABLES Performing Organization Address City/[facility]/ZIP Co de Phone Number [facility] [place] [address] * (ABNORMAL) Urinalysis Dipstick (01/03/2024 10:43 AM EDT) Glucose, Urine Dipstick Negative Negative 01/03/2024 12:03 PM EDT [facility] Protein, Urine Dipstick Negative Negative 01/03/2024 12:03 PM EDT [facility] Bilirubin, Urine Dipstick Negative Negative 01/03/2024 12:03 PM EDT [facility] Comment:Clinical correlation required for positive Urine Bilirubin results as false positive may occur with some drugs and drug related products. If a false positive is suspected a serum total bilirubin should be considered if clinically indicated. Urobilinogen, Urine Dipstick Normal Normal, 0.2 mg/dL, 1.0 mg/dL 01/03/2024 12:03 PM EDT [facility] pH, Urine (dipstick) 7.5 5.0 - 8.0 01/03/2024 12:03 PM EDT [facility] Blood, Urine Dipstick Negative Negative 01/03/2024 12:03 PM EDT [facility] Ketone, Urine Dipstick Negative Negative 01/03/2024 12:03 PM EDT [facility] Nitrite, Urine Dipstick Negative Negative 01/03/2024 12:03 PM EDT [facility] Leukocytes, Urine Dipstick Large(A) Negative 01/03/2024 12:03 PM EDT [facility] Specific [place] Urine Automated 1.010 1.005 - 1.030 01/03/2024 12:03 PM EDT [facility] Appearance, Urine Dipstick Cloudy(A) Clear 01/03/2024 12:03 PM EDT [facility] Color, Urine Dipstick Yellow Yellow, Dark Yellow 01/03/2024 12:03 PM EDT [facility] CULTURE ADDED? 01/03/2024 12:03 PM EDT [facility] Urine Non Blood Collection / Unknown 01/03/2024 10:43 AM EDT 01/03/2024 10:45 AM EDT Nenita Grimes APRN URINE ORD ERABLES [facility] [place] [address] * (ABNORMAL) CBC (with Diff) (01/03/2024 10:43 AM EDT) White Blood Cell 5.51 4.00 - 9.50 x10(3)/mc L 01/03/2024 11:16 AM EDT [facility] Red Blood Cell 3.80(L) 4.00 - 5.21 x10(6)/mc L 01/03/2024 11:16 AM EDT [facility] Hemoglobin 12.5 11.7 - 15.5 g/dL 01/03/2024 11:16 AM EDT [facility] Hematocrit 38.7 35.7 - 45.8 % 01/03/2024 11:16 AM [facility] Mean Cell Volume 101.8(H) 82.6 - 94.4 fL 01/03/2024 11:16 AM [facility] Mean Cell Hemoglobin 32.9(H) 27.1 - 32.0 pg 01/03/2024 11:16 AM [facility] Mean Cell Hemoglobin Concentration 32.3 31.7 - 35.0 g/dL 01/03/2024 11:16 AM [facility] Platelet 217 145 - 357 x10(3)/mc L 01/03/2024 11:16 AM [facility] Mean Platelet Volume 11.1 7.6 - 12.9 fL 01/03/2024 11:16 AM [facility] RDW Standard Deviation 46.0 37.0 - 46.0 fL 01/03/2024 11:16 AM [facility] RDW coefficient of variation 12.2 11.5 - 14.1 % 01/03/2024 11:16 AM [facility] NRBC% auto 0.0 % 01/03/2024 11:16 AM [facility] NRBC Absolute <0.01 <0.01 x10(3)/mc L 01/03/2024 11:16 AM [facility] Neutrophil % 46.1 % 01/03/2024 11:16 AM [facility] Neutrophil Absolute (ANC) - Automated 2.54 1.70 - 6.10 x10(3)/mc L 01/03/2024 11:16 AM [facility] Lymph % 44.3 % 01/03/2024 11:16 AM [facility] Lymph Absolute 2.44 0.90 - 3.20 x10(3)/mc L 01/03/2024 11:16 AM [facility] Monocyte % 7.8 % 01/03/2024 11:16 AM [facility] Monocyte Absolute 0.43 0.30 - 0.90 x10(3)/mc L 01/03/2024 11:16 AM EDT [facility] Eos % 0.9 % 01/03/2024 11:16 AM EDT [facility] Eos Absolute 0.05 0.00 - 0.40 x10(3)/mc L 01/03/2024 11:16 AM EDT [facility] Basophil % 0.5 % 01/03/2024 11:16 AM EDT [facility] Baso Absolute <0.04 0.00 - 0.10 x10(3)/mc L 01/03/2024 11:16 AM EDT [facility] Immature Gran % 0.4 % 11:16 AM EDT [facility] Immature Gran Absolute <0.04 0.00 - 0.04 x10(3)/mc L 01/03/2024 11:16 AM EDT [facility] Blood VENOUS BLOOD SPECIMEN / Unknown Venipuncture / Unknown 01/03/2024 10:43 AM EDT 01/03/2024 10:45 AM EDT Nenita Grimes UNIFIED COMMUNICATIONS ARCHITECT [place] [address] * Uric acid (01/03/2024 10:43 AM EDT) Uric Acid 6.0 2.5 - 6.5 mg/dL 01/03/2024 11:25 AM EDT [facility] Blood VENOUS BLOOD SPECIMEN / Unknown Venipuncture / Unknown 01/03/2024 10:43 AM EDT 01/03/2024 10:45 AM EDT Nenita Grimes UNIFIED COMMUNICATIONS ARCHITECT CHEMISTRY ORDERABLES [facility] [place] [address] * Phosphorus (01/03/2024 10:43 AM EDT) Pathologist [facility] [place] Phosphorus 3.4 2.5 - 4.5 mg/dL 01/03/2024 11:25 AM EDT [facility] Blood VENOUS BLOOD SPECIMEN / Unknown Venipuncture / Unknown 01/03/2024 10:43 AM EDT 01/03/2024 10:45 AM EDT Nenita Grimes APRN CHEMISTRY ORDERABLES [facility] [place] [address] * Albumin Level (01/03/2024 10:43 AM EDT) [facility] Albumin 4.1 3.2 - 5.2 g/dL 01/03/2024 11:25 AM EDT [facility] Blood VENOUS BLOOD SPECIMEN / Unknown Venipuncture / Unknown 01/03/2024 10:43 AM EDT 01/03/2024 10:45 AM EDT Nenita Grimes APRN CHEMISTRY ORDERABLES [facility] [place] [address] * (ABNORMAL) Basic Metabolic Panel (non-fasting) (01/03/2024 10:43 AM EDT) Pathologist [facility] [place] Glucose 83 65 - 199 mg/dL 01/03/2024 11:25 AM EDT [facility] Comment:Glucose Concentratio n >=200 mg/dL plus symptoms is consistent with Diabetes Mellitus. Blood Urea Nitrogen 11 8 - 18 mg/dL 01/03/2024 11:25 AM EDT [facility] Creatinine 1.22(H) 0.70 - 1.20 mg/dL 01/03/2024 11:25 AM EDT [facility] Sodium 138 135 - 145 mMol/L 01/03/2024 11:25 AM EDT [facility] Potassium 4.2 3.5 - 5.0 mMol/L 01/03/2024 11:25 AM EDT [facility] Chloride 100 98 - 107 mMol/L 01/03/2024 11:25 AM EDT [facility] Carbon Dioxide 27 22 - 31 mMol/L 01/03/2024 11:[facility] Anion Gap 11 5 - 15 mMol/L 01/03/2024 11:25 AM EDT [facility] Calcium 9.5 8.5 - 10.5 mg/dL 01/03/2024 11:25 AM [facility] Est Glomerular Filtration Rate - Female 51 mL/min/1. 73 m?? 01/03/2024 11:25 AM [facility] Comment: This patient's estimated [...] urine creatinine clearance. Assignment of CKD stage 1 - 5 for patients with an eGFR near the transition point between stages may be based on clinical assessment of muscle mass and symptoms in addition to eGFR. Link: eGFR Calculator [employer] Fasting Status No 01/03/2024 11:25 AM EDT [facility] Blood VENOUS BLOOD SPECIMEN / Unknown Venipuncture / Unknown 01/03/2024 10:43 AM EDT 01/03/2024 10:45 AM EDT Nenita Grimes APRN CHEMISTRY ORDERABLES [facility] [place] [address] from Last 3 Months Care Teams Packaging Line Attendant Relationship Specialty Start Date End Date Yumiko Tavarez MD [address] [place], [place] [id number] PCP - General Family Medicine 07/07/16
--- OUTSIDE RECORDS SUMMARY | 2024-01-28 12:23 | XMS_ITS | Encounter Summary ---
Author Organization [facility] Address [address] [place] [address] Care Team Providers Care Corporate Recruiter Name Role Phone Unavailable Primary Care Provider Unavailabl e Encounter Details Date Type Department Care Team (Late st Contact Info) Description 08/03/2008 Orders Only [facility] Laboratory Services - [facility] [address] [place], [place] [id number] Lincoln Card MD [address] [place] [id number] Social History Tobacco Use Types Packs/Day Years [...] [facility] Neurology - [address] [place], [place] [address] Alta Walter MD [address] [place] [address], [address] [place] [address] documented as of this encounter [...] ? ALMAZAN, CYDNEY ? Accession #: ? [id number] ? : ? 1965 (Age: 43) ??F ? Collect Date: ? 08/03/2008 ? Location: ? [facility] ? Receive Date: ? 08/03/2008 ? Provider: LINCOLN CARD MD ? Copy to: REMINGTON TAI MD ? Final Pathologic Diagnosis: ? A. [...] Anemia ? Gross Description: ? Received in Berna's fixative labelled Matias, Cydney and biopsy ? duodenum are four pink-painting irregular soft tissues ranging from 0.2 x 0.2 x 0.2 cm to 0.7 x 0.2 x 0.2 cm. ??Submitted in toto as (A1) and (A2). ? Received in [facility]'s fixative labelled Almazan, Cydney and biopsy esophagus 33 cm are four pink-painting irregular soft tissues ranging from 0.3 x 0.3 x 0.2 cm to 0.5 x 0.3 x 0.2 cm. ??Submitted in toto as (B1) and (B2). ??(Jessica Maldonado)/jose antoniog ? End of Report ? [facility] 08/03/2008 08/03/2008 9:0 5 EDT us Lincoln Card MD PATHOLOGY ORDERABLES Final Result [facility] [address] [place] [address] documented in this encounter Visit Diagnoses Not on filedocumented in this encounter
--- OUTSIDE RECORDS SUMMARY | 2024-01-28 12:23 | XMS_ITS | Encounter Summary ---
[place] [address] Care Team Providers Care Sql Dba Name Role Phone Yumiko Tavarez MD Primary Care Provider [phone] Reason for Referral * Consultation (Routine) - Authorized Specialty Diagnoses / Procedures Referred By Contac t Referred To [facility] Diagnoses Cervicalgia Yumiko Tavarez MD [address] [place] [address] [facility] [place] [address] Referral ID Status Reason Start Date Expiration Date Visits Requested Visits Authorized [id number] Authorized Consult, Test & Treat PCP Updated and/or Approved 10/12/2023 04/13/2024 6 6 Encounter Details Date Type Department Care Team (Late st Contact Info) Description 10/26/2023 Transcribe Orders eDH Incoming Referrals [phone] Yumiko Tavarez MD [address] [place] [address] Cervicalgia Social History Tobacco Use Types Packs/Day Years [...] 1:00 PM EST [place] [address] Alta Caban APRN [facility] [place] [address] Scheduled Referrals Name Type Priority Associated Diagnoses Order Schedule Referral to Orthopaedics Outpatient Referral Routine Cervicalgia Ordered: 10/26/2023 documented as of this encounter Visit Diagnoses Diagnosis Cervicalgia documented in this encounter Care Teams Sql Dba Relationship Specialty Start Date End Date Yumiko Tavarez MD [address] [place] [address] PCP - General Family Medicine 07/07/16 documented as of this encounter
--- OUTSIDE RECORDS SUMMARY | 2024-01-28 12:23 | XMS_ITS | Encounter Summary ---
Author Organization [facility] Address [address] [place] [address] Care Team Providers Care Lean Facilitator Name Role Phone Unknown, Provider Primary Care Provider Yumiko Loomis MD Primary Care Provider [phone] Reason for Visit * Reason Onset Date Comments New Patient Visit 12/18/2019 Encounter Details Date Type Department Care Team ([facility] Contact Info) Description 12/18/2019 Telephone [facility] Neurology - [address] [id number] Alta Walter MD [address] [place] [address] [address] [place] [address] New Patient Visit Social History [...] Telephone Encounter - Geraldo Kwon - 12/25/2019 2649 EDT Outgoing call to clarify if pt [...] 02/13/2024 13:00 EST Office Visit [facility] Neurology - [address] [place], [place] [address] Alta Walter MD [address] [place] [address], [address] [place] [address] documented as of this encounter Visit Diagnoses Not on filedocumented in this encounter Care Teams Lean Facilitator Relationship Specialty Start Date End Date Unknown, Provider, PCP - General 08/05/08 12/28/19 Yumiko Tavarez MD [address] [place] [phone] PCP - General 12/29/19 documented as of this encounter
--- OUTSIDE RECORDS SUMMARY | 2024-01-28 12:23 | XMS_ITS | Encounter Summary ---
Author Organization [facility] Address [address] [place] [address] Care Team Providers Care Rn Integrity Name Role Phone Unknown, Provider Primary Care Provider Yumiko Loomis MD Primary Care Provider [phone] Encounter Details Date Type Department Care Team (Latest Contact Info) Description 01/20/2019 Lab Requisition [facility] Pathology & Laboratory Medicine - [address] [address] Yumiko Tavarez MD [address] [place] [phone] Encounter for general adult medical examination without [...] 13:00 EST Office Visit [facility] Neurology - S [address] [address] Alta Walter MD [address] [place] [address] [address] [place] [phone] documented as of this encounter Procedures Procedure [...] types, PCR Positive( A) Negative 01/22/2019 15:05 [facility] Comment:E6 OR E7 mRNA from o ne or more types of HPV types 16,18,31,33,35,39,45,51,52,56,58,59,66, and 68 is detected by air brush decorator mediated amplification. High and intermediate risk HPV types are associated with most squamous intraepithelial lesions and cervical cancers. Papanicolaou smear specimen (specimen) CERVIX UTERI STRUCTURE / Unknown 01/16/2019 14:00 EST 01/21/2019 9:36 EST us Yumiko Tavarez MD MICROBIOLOGY - GENERAL ORDERAB LES Final Result [facility] [address] [place] [address] * PAP TEST (01/16/2019 14:00 EST) Specimens A. Cervix and/or Endocervix, , ThinPrep Imaging System with Manual Evaluation 01/22/2019 15:05 [facility] Specimen Adequacy Satisfactory for Evaluation - transformation zone component present 01/22/2019 15:05 [facility] General Categorization Negative for intraepithelial lesion or malignancy 01/22/2019 15:05 [facility] Attestation . 01/22/2019 15:05 [facility] at 1505 Clinical History NONE 01/23/20 19 15:05 EST [facility] HPV The result for the Human Papillomavirus (HPV) Detection-High Risk Types is Positive . E6 OR E7 mRNA from one or more types of HPV types 16,18,31,33,35,39 ,45,51,52,56,58,5 9,66, and 68 is detected by air brush decorator mediated amplification. High and intermediate risk HPV types are associated with most squamous intraepithelial lesions and cervical cancers. Testing was performed on specimen [id number] and was resulted on 01/22/2019 1503 EST by ANTHONY, LAB INSTRUMENT RESULTS IN 01/22/2019 15:05 EST [facility] Scanned Images 01/22/2019 15:05 EST [facility] Papanicolaou smear specimen (specimen) CERVIX UTERI STRUCTURE / Unknown 01/16/2019 14:00 EST 01/20/2019 9:08 EST us Yumiko Tavarez MD PATHOLOGY ORDERABLES Final Res ult [facility] [address] [place] [address] documented in this encounter Visit Diagnoses Diagnosis Encounter for general adult medical examination without abnormal findings Unspecified general medical examination Encounter for gynecological examination (general) (routine) without abnormal findings Encounter for screening for malignant neoplasm of cervix Screening for malignant neoplasm of the cervix documented in this encounter Care Teams Rn Integrity Relationship Specialty Start Date End Date Unknown, Provider, PCP - General 08/05/08 12/28/19 Yumiko Tavarez MD [address] [place] [address] PCP - General 12/29/19 documented as of this encounter
--- OUTSIDE RECORDS SUMMARY | 2024-01-28 12:23 | XMS_ITS | Encounter Summary ---
[place] [address] Care Team Providers Care Web Ui Software Engineer Name Role Phone Yumiko Tavarez MD Primary Care Provider [phone] Reason for Referral * Consultation (Routine) - Authorized Specialty Diagnoses / Procedures Referred By Contac t Referred To Contact [facility] Diagnoses Cervicalgia Yumiko Tavarez MD [address] [place] [address] [facility] [place] [address] Referral ID Status Reason Start Date Expiration Date Visits Requested Visits Authorized [id number] Authorized Consult, Test & Treat PCP Updated and/or Approved 12/25/2024 6 6 Encounter Details Date Type Department Care Team (Late st Contact Info) Description 01/22/2024 Transcribe Orders eDH Incoming Referrals [phone] Yumiko Tavarez MD [address] [place], [place] [id number] Cervicalgia Social History Tobacco Use Types Packs/Day [...] 1:00 PM [place] [address] Alta Caban [address]N [facility] [place] [address] Scheduled Referrals Name Type Priority Associated Diagnoses Order Schedule Referral to Pain Management Outpatient Referral Routine Cervicalgia Ordered: 01/22/2024 documented as of this encounter Visit Diagnoses Diagnosis Cervicalgia documented in this encounter Care Teams Web Ui Software Engineer Relationship Specialty Start Date End Date Yumiko Tavarez MD [address] [place] [address] PCP - General Family Medicine 07/07/16 documented as of this encounter
--- OUTSIDE RECORDS SUMMARY | 2024-01-28 12:23 | XMS_ITS | Encounter Summary ---
[place] [address] Care Team Providers Care Cement Despatch Operator Name Role Phone Yumiko Tavarez MD Primary Care Provider [phone] Reason for Referral * Consultation (Routine) - Authorized Specialty Diagnoses / Procedures Referred By Contac t Referred To Contact Urology Diagnoses Retention of urine, unspecified Yumiko Tavarez MD [address] [place] [address] [facility] [place] [address] Referral ID Status Reason Start Date Expiration Date Visits Requested Visits Authorized [id number] Authorized Consult, Test & Treat PCP Updated and/or Approved 12/25/2024 6 6 Encounter Details Date Type Department Care Team (Latest Contact Info) Description 01/09/2024 Transcribe Orders eDH Incoming Referrals [phone] Yumiko Tavarez MD [address] [place] [address] Retention of urine, unspecified Social History Tobacco Use Types Packs/Day Years [...] 1:00 PM EST [place] [address] Alta Caban APRN [facility] [place] [address] Scheduled Referrals Name Type Priority Associated Diagnoses Orde r Schedule Referral to Urology Outpatient Referral Routine Retention of urine, unspecified Ordered: 01/09/2024 documented as of this encounter Visit Diagnoses Diagnosis Retention of urine, unspecified documented in this encounter Care Teams Cement Despatch Operator Relationship Specialty Start Date End Date Yumiko Tavarez MD [address] [place] [address] PCP - General Family Medicine 07/07/16 documented as of this encounter
--- OUTSIDE RECORDS SUMMARY | 2024-01-28 12:23 | XMS_ITS | Encounter Summary ---
Author Organization [facility] Address [address] [place] [address] Care Team Providers Care Porcelain Enamel Laborer Name Role Phone Yumiko Tavarez MD Primary Care Provider [phone] Reason for Visit * Reason Onset Date Comments Prior Auth, Medication 06/02/2020 Encounter Details Date Type Department Care Team (Late st Contact Info) Description 06/02/2020 Telephone [facility] Neurology - [address] [phone] Alta Walter MD [address] [place] [address], [address] [place] [address] Prior Auth, Medication Social History [...] to be sent to [facility] - phone [phone]. [employer] will not cover it * Telephone [...] tablet tid Approved: through 06/10/21 Authorization Number: [id number] Benefits Information or Other Notes: Required Pharmacy: [...] Request Received: 06/01/20 PA Submission Date: 06/02/20 [facility] [place]: n/a submitted via fax Submitted by: Za Phone: [phone]. documented in this encounter Plan of Treatment Upcoming Encounters Date Type Department Care Team (Late st Contact Info) Description 02/13/2024 13:00 EST Office Visit [facility] [place] [address] Alta Walter MD [address] [place] [address] [address] [place] [phone] documented as of this encounter Visit Diagnoses Not on filedocumented in this encounter Discontinued Medications Medication Sig Discontinue Reason Start Date End Da te tetrabenazine 12.5 mg tablet Take 1 Tab by mouth 3 times daily. Reorder 05/31/2020 06/15/2020 documented as of this encounter Care Teams Porcelain Enamel Laborer Relationship Specialty Start Date End Date Yumiko Tavarez MD [address] [place] [address] PCP - General 12/29/19 documented as of this encounter
--- OUTSIDE RECORDS SUMMARY | 2024-01-28 12:23 | XMS_ITS ---
Author Organization [facility] Address [address] [place] [address] Care Team Providers Care Finish Inspector Name Role Phone Yumiko Tavarez MD Primary Care Provider [phone] Neurology Status:Discharged (Closed) Start date:03/03/2021 Enrollment date:03/03/2021 End date:05/20/2021 Continued Care and Services Coordination
--- OUTSIDE RECORDS SUMMARY | 2024-01-28 12:23 | XMS_ITS | Encounter Summary ---
Author Organization [facility] Address [address] [place] [address] Care Team Providers Care Exterminator Helper Name Role Phone Unknown, Provider MD Primary Care Provider Unava ilable Encounter Details Date Type Department Care Team (Late st Contact Info) Description 01/19/2016 Results Only [facility] [phone] Jerri Topete MD [address] [place] [address] [place] [address] Social History Tobacco Use Types Packs/Day Years [...] Info) Description 02/13/2024 13:00 EST Office Visit [facility] Neurology - [address] [place] [address] [place] [phone] Alta Walter MD [address] [place] [address], [address] [place] [phone] documented as of this encounter Procedures Procedure [...] ? CYDNEY ALMAZAN ? Accession #: ? [id number] ? : ? 1965 (Age: 50) ??F [...] types 16,18,31,33,35, 39,45,51,52,56,58, 59,66, and 68 by planning aide mediated amplification. Comments Document reviewed and electronically signed by: ? System Interface ? Report date: 01/31/2016 By the signature above, the attending physician certifies that he/she has personally conducted a gross and/or microscopic examination of the described specimens and rendered or confirmed the above diagnosis. End of Report [facility] 01/19/2016 01/20/2016 us Jerri Topete MD PATHOLOGY ORDERABLES Final Resu lt [facility] [address] [place] [address] documented in this encounter Visit Diagnoses Not on filedocumented in this encounter Care Teams Exterminator Helper Relationship Specialty Start Date End Date Unknown, Provider, PCP - General 08/05/08 12/28/19 documented as of this encounter
--- OUTSIDE RECORDS SUMMARY | 2024-01-28 12:23 | XMS_ITS | Encounter Summary ---
Author Organization [facility] [place] [address] Care Team Providers Care Loan Officer Assistant Name Role Phone Yumiko Tavarez MD Primary Care Provider [phone] Encounter Details Date Type Department Care Team (Latest Contact Info) Description 01/03/2024 10:00 AM EDT Laboratory Appointment Lab [address] [place] [phone] Stage 3a chronic kidney disease; Stage 3 [...] 1:00 PM EST Office [place] [phone] Alta Caban APRN [facility] [place] [address] documented as of this encounter Procedures Procedure Name Priority Date/Time Associated Diagnosis Comments URINALYSIS BEAKER MICROSCOPIC ([facility]) Routine 01/03/2024 10:43 AM EDT Stage 3a [...] AM EDT Stage 3a chronic kidney disease documented in this encounter Results * (ABNORMAL) Urinalysis Microscopic (01/03/2024 10:43 AM EDT) RBC, Urine 1 0 - 4 /HPF 01/03/2024 12:03 PM EDT [facility] WBC, Urine 35(H) 0 - 5 /HPF 01/03/2024 12:03 PM EDT [facility] Squamous Epithelial Cells, Urine 7(H) 0 - 5 /HPF 01/03/2024 12:03 PM EDT [facility] Hyaline Casts, Urine 3(H) 0 - 2 /LPF 01/03/2024 12:03 PM EDT [facility] Comment 01/03/2024 12:03 PM EDT [facility] Comment:Interpret results wi th caution, microscopic results are from a suboptimal specimen. Bacteria, Urine Moderate( A) None /HPF 01/03/2024 12:03 PM EDT [facility] Urine Non Blood Collection / Unknown 01/03/2024 10:43 AM EDT 01/03/2024 10:45 AM EDT Nenita Hany WaldronYoselinaraemeka ROBERTN URINE ORD ERABLES Performing Organization Address [facility] de Phone Number [facility] [place] [address] * Urinalysis Microscopic Exam (01/03/2024 10:43 AM EDT) Urine Non Blood Collection / Unknown 01/03/2024 10:43 AM EDT 01/03/2024 10:45 AM EDT Nenita Hany WaldronYoselinaraemeka ROBERTN URINE ORD ERABLES Performing Organization Address [facility] Co de Phone Number [facility] [place] [address] * (ABNORMAL) Urinalysis Dipstick (01/03/2024 10:43 AM EDT) Glucose, Urine Dipstick Negative Negative 01/03/2024 12:03 PM EDT [facility] Protein, Urine Dipstick Negative Negative 01/03/2024 12:03 PM EDT [facility] Bilirubin, Urine Dipstick Negative Negative 01/03/2024 12:03 PM EDT [facility] Comment:Clinical correlation required for positive Urine Bilirubin results as false positive may occur with some drugs and drug related products. If a false positive is suspected a serum total bilirubin should be considered if clinically indicated. Urobilinogen, Urine Dipstick Normal Normal, 0.2 mg/dL, 1.0 mg/dL 01/03/2024 12:03 PM EDT [facility] pH, Urine (dipstick) 7.5 5.0 - 8.0 01/03/2024 12:03 PM EDT [facility] Blood, Urine Dipstick Negative Negative 01/03/2024 12:03 PM EDT [facility] Ketone, Urine Dipstick Negative Negative 01/03/2024 12:03 PM EDT [facility] Nitrite, Urine Dipstick Negative Negative 01/03/2024 12:03 PM EDT [facility] Leukocytes, Urine Dipstick Large(A) Negative 01/03/2024 12:03 PM EDT [facility] Specific [place] Urine Automated 1.010 1.005 - 1.030 01/03/2024 12:03 PM EDT [facility] Appearance, Urine Dipstick Cloudy(A) Clear 01/03/2024 12:03 PM EDT [facility] Color, Urine Dipstick Yellow Yellow, Dark Yellow 01/03/2024 12:03 PM EDT [facility] CULTURE ADDED? 01/03/2024 12:03 PM EDT [facility] Urine Non Blood Collection / Unknown 01/03/2024 10:43 AM EDT 01/03/2024 10:45 AM EDT Nenita Grimes APRN URINE ORD ERABLES [facility] [place] [address] * Albumin Level (01/03/2024 10:43 AM EDT) Albumin 4.1 3.2 - 5.2 g/dL 01/03/2024 11:25 AM EDT [facility] Blood VENOUS BLOOD SPECIMEN / Unknown Venipuncture / Unknown 01/03/2024 10:43 AM EDT 01/03/2024 10:45 AM EDT Nenita Grimes YANN CHEMISTRY ORDERABLES [facility] [place] [address] * (ABNORMAL) Basic Metabolic Panel (non-fasting) (01/03/2024 10:43 AM EDT) Glucose 83 65 - 199 mg/dL 01/03/2024 11:25 AM EDT [facility] Comment:Glucose Concentratio n >=200 mg/dL plus symptoms is consistent with Diabetes Mellitus. Blood Urea Nitrogen 11 8 - 18 mg/dL [facility]/03[facility]2024 [facility] Creatinine 1.22(H) 0.70 - 1.20 mg/dL 01/03/2024 11:25 AM T [facility] Sodium 138 135 - 145 mMol/L 01/03/2024 11:25 AM [facility] Potassium 4.2 3.5 - 5.0 mMol/L 01/03/2024 11:25 AM [facility] Chloride 100 98 - 107 mMol/L 01/03/2024 11:25 AM [facility] Carbon Dioxide 27 22 - 31 mMol/L 01/03/2024 11:25 AM [facility] Anion Gap 11 5 - 15 mMol/L 01/03/2024 11:25 AM [facility] Calcium 9.5 8.5 - 10.5 mg/dL 01/03/2024 11:25 AM [facility] Est Glomerular Filtration Rate - Female 51 mL/min/1. 73 m?? 01/03/2024 11:25 AM [facility] Comment: This patient's estimated [...] Fasting Status No 01/03/2024 11:25 AM EDT [facility] Blood VENOUS BLOOD SPECIMEN / Unknown Venipuncture / Unknown 01/03/2024 10:43 AM EDT 01/03/2024 10:45 AM EDT Nenita Grimes APRN CHEMISTRY ORDERABLES [facility] [place] [address] * (ABNORMAL) CBC (with Diff) (01/03/2024 10:43 AM EDT) White Blood Cell 5.51 4.00 - 9.50 x10(3)/mc L 01/03/2024 11:16 AM [facility] Red Blood Cell 3.80(L) 4.00 - 5.21 x10(6)/mc L 01/03/2024 11:16 AM [facility] Hemoglobin 12.5 11.7 - 15.5 g/dL 01/03/2024 11:16 AM [facility] Hematocrit 38.7 35.7 - 45.8 % 01/03/2024 11:16 AM [facility] Mean Cell Volume 101.8(H) 82.6 - 94.4 fL 01/03/2024 11:16 AM [facility] Mean Cell Hemoglobin 32.9(H) 27.1 - 32.0 pg 01/03/2024 11:16 AM [facility] Mean Cell Hemoglobin Concentration 32.3 31.7 - 35.0 g/dL 01/03/2024 11:16 AM [facility] Platelet 217 145 - 357 x10(3)/mc L 01/03/2024 11:16 AM [facility] Mean Platelet Volume 11.1 7.6 - 12.9 fL 01/03/2024 11:16 AM [facility] RDW Standard Deviation 46.0 37.0 - 46.0 fL 01/03/2024 11:16 AM [facility] RDW coefficient of variation 12.2 11.5 - 14.1 % 01/03/2024 11:16 AM [facility] NRBC% auto 0.0 % 01/03/2024 11:16 AM [facility] NRBC Absolute <0.01 <0.01 x10(3)/mc L 01/03/2024 11:16 AM [facility] Neutrophil % 46.1 % 01/03/2024 11:16 AM [facility] Neutrophil Absolute (ANC) - Automated 2.54 1.70 - 6.10 x10(3)/mc L 01/03/2024 11:16 AM [facility] Lymph % 44.3 % 01/03/2024 11:16 AM [facility] Lymph Absolute 2.44 0.90 - 3.20 x10(3)/mc L 01/03/2024 11:16 AM [facility] Monocyte % 7.8 % 01/03/2024 11:16 AM [facility] Monocyte Absolute 0.43 0.30 - 0.90 x10(3)/mc L 01/03/2024 11:16 AM [facility] Eos % 0.9 % 01/03/2024 11:16 AM [facility] Eos Absolute 0.05 0.00 - 0.40 x10(3)/mc L 01/03/2024 11:16 AM [facility] Basophil % 0.5 % 01/03/2024 11:16 AM EDT [facility] Baso Absolute <0.04 0.00 - 0.10 x10(3)/mc L 01/03/2024 11:16 AM EDT [facility] Immature Gran % 0.4 % 11:16 AM EDT [facility] Immature Gran Absolute <0.04 0.00 - 0.04 x10(3)/mc L 01/03/2024 11:16 AM EDT [facility] Blood VENOUS BLOOD SPECIMEN / Unknown Venipuncture / Unknown 01/03/2024 10:43 AM EDT 01/03/2024 10:45 AM EDT Nenita Grimes FOOD STYLIST HEMATOLOG Y ORDERABLES Performing Organization Address City/[facility]/ZIP Co de Phone Number [facility] [place] [address] * Vitamin D, 25-Hydroxy (01/03/2024 10:43 AM EDT) Vitamin D Total 25 OH 44 21 - 100 ng/ml 01/03/2024 11:39 AM EDT [facility] Vitamin D Total 25 OH Interp Sufficient 01/03/2024 11:39 AM EDT [facility] Blood VENOUS BLOOD SPECIMEN / Unknown Venipuncture / Unknown 01/03/2024 10:43 AM EDT 01/03/2024 10:45 AM EDT Nenita Grimes APRN CHEMISTRY ORDERABLES [facility] [place] [address] * U Albumin/Cre Ratio (01/03/2024 10:43 AM EDT) Albumin, Urine <3.0 mg/L 01/03/2024 11:26 AM EDT [facility] Creatinine, Urine 119 mg/dL 01/03/2024 11:26 AM EDT [facility] Albumin / Creatinine Ratio, Urine 01/03/2024 11:26 AM EDT [facility] Comment:Not Calculated. Urine Non Blood Collection / Unknown 01/03/2024 10:43 AM EDT 01/03/2024 10:45 AM EDT Nenita Grimes APRN URINE ORD ERABLES Performing Organization Address City/[facility]/ZIP Co de Phone Number [facility] [place] [address] * Uric acid (01/03/2024 10:43 AM EDT) Uric Acid 6.0 2.5 - 6.5 mg/dL 01/03/2024 11:25 AM EDT [facility] Blood VENOUS BLOOD SPECIMEN / Unknown Venipuncture / Unknown 01/03/2024 10:43 AM EDT 01/03/2024 10:45 AM EDT Nenita Grimes APRN CHEMISTRY ORDERABLES Performing Organization Address [facility] Co de Phone Number [facility] [place] [address] * (ABNORMAL) PTH (01/03/2024 10:43 AM EDT) Parathyroid Hormone 76(H) 15 - 65 pg/mL 01/03/2024 11:25 AM EDT [facility] Blood VENOUS BLOOD SPECIMEN / Unknown Venipuncture / Unknown 01/03/2024 10:43 AM EDT 01/03/2024 10:45 AM EDT Nenita Grimes APRN CHEMISTRY ORDERABLES Performing Organization Address City/[facility] Co de Phone Number [facility] [place] [address] * Protein/Creatinine Ratio, urine (01/03/2024 10:43 AM EDT) Protein, Urine 6 0 - 12 mg/dL 01/03/2024 11:26 AM EDT [facility] Creatinine, Urine 119 mg/dL 01/03/2024 11:26 AM EDT [facility] Protein / Creatinine Ratio, Urine 0.1 ratio 01/03/2024 11:26 AM EDT [facility] Urine Non Blood Collection / Unknown 01/03/2024 10:43 AM EDT 01/03/2024 10:45 AM EDT Nenita Grimes APRN URINE ORD ERABLES [facility] [place] [address] * Phosphorus (01/03/2024 10:43 AM EDT) Phosphorus 3.4 2.5 - 4.5 mg/dL 01/03/2024 11:25 AM EDT [facility] Blood VENOUS BLOOD SPECIMEN / Unknown Venipuncture / Unknown 01/03/2024 10:43 AM EDT 01/03/2024 10:45 AM EDT Nenita Grimes APRN CHEMISTRY ORDERABLES Performing Organization Address City/[facility]/ZIP Co de Phone Number [facility] [place] [address] documented in this encounter Visit Diagnoses Diagnosis Stage 3a chronic kidney disease Stage 3 chronic kidney disease, unspecified whether stage 3a or 3b CKD documented in this encounter Care Teams Loan Officer Assistant Relationship Specialty Start Date End Date Yumiko Tavarez MD [address] [place] [address] PCP - General Family Medicine 07/07/16 documented as of this encounter
--- OUTSIDE RECORDS SUMMARY | 2024-01-28 12:23 | XMS_ITS | Encounter Summary ---
Author Organization [facility], Located Within [facility] [place] [address] Care Team Providers Care Insecticide Mixer Name Role Phone Yumiko Tavarez MD Primary Care Provider [phone] Encounter Details Date Type Department Care Team (Latest Contact Info) Description 01/03/2024 11:30 AM EDT Office Visit Ne[place] [phone] Nenita Grimes MATERIALS PLANNER/PRODUCTION PLANNER [facility] [place] [address] Hypertension, unspecified type; Hyperparathyroidism; Stage 3 chronic [...] Mass Index 26.26 01/03/2024 11:41 AM EDT documented in this encounter Progress Notes * Nenita Grimes W, MATERIALS PLANNER/PRODUCTION PLANNER - 01/03/2024 11:30 AM EDT Images from the original note were not included. [facility] NEPHROLOGY/HYPERTENSION CLINIC FOLLOW-UP NOTE [id number] ID: 58 y.o.year-old female seen for follow up of Chronic Kidney Disease. 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 ALPRAZolam (Xanax) 1 mg tablet Take 1 tablet by mouth Daily at Noon. acetaminophen (Tylenol) 500 mg tablet Take 1,000 mg by mouth every 6 hours as needed for Pain. pregabalin (LYRICA) 200 mg Capsule Take by mouth daily. 150 mg in the morning and 100mg in the evening naloxone (Narcan) 4 mg/actuation [place], Non-Aerosol 1 spray by Nasal route as needed. omeprazole (PRILOSEC) 20 mg Capsule, Delayed Release(E.C.) Take 20 mg by mouth as needed. folic acid (FOLVITE) 1 mg Tablet Take 1 mg by mouth daily. cyanocobalamin 1,000 mcg Tablet Take 1,000 mcg by mouth daily. calcium carbonate (TUMS) 200 mg calcium (500 mg) Tablet, Chewable Take 2 tablets by mouth daily. zolpidem (AMBIEN) 10 mg Tablet Take 10 mg by mouth nightly. oxyCODONE-acetaminophen (PERCOCET) 10-325 mg Tablet Take 1 tablet by mouth every 6 hours as needed for Pain. [DISCONTINUED] clonazePAM (KlonoPIN) 1 mg tablet Take by mouth. 1.5 tabs in the morning and 1 tab in afternoon, and 1.5 tabs at night [DISCONTINUED] cholecalciferol, Vitamin D3, 50,000 unit Capsule Take 50,000 Units by mouth once a week. No facility-administered encounter medications on file as of 01/03/2024. Allergies Allergen Reactions Mirtazapine Other (See Comments) Patient reports heart races and jittery feeling. Visible quivering extremities. Antihistamines - Alkylamine Gabapentin Histamine Novocain [Procaine] Excessive shaking Interim history: Miguelina Morales was last seen in the CKD clinic by myself on 05/08/2023 at this encounter her renal function displayed a Serum Creatinine of 1.45 and eGFR of 41. Today she presented accompanied by her daughter for her follow up enocounter. She endorses having had the flu extremely bad over the summer and strepth throat as well as shingles. She stated she is doing much better today and denies anyacute concerns. She stated that her urination stream continues to be problem. She expressed displeasure with her urologist at [facility] and has requested to have a 2nd opinon with [facility] urology she stated this has been discussed with her PCP and has PCP has sent in a refferal to urology and she is currently awaiting an appoitmtnet. O: Vitals: 01/03/24 1141 BP: 114/74 Pulse: 82 Weight: 59 kg (130 lb) Height: 149.9 cm (4' 11) General: Arrived ambulant, alert, comfortable. Cooperative with exam. HEENT: Sclera white. Mucous membranes moist. No lymphadenopathy. CV: S1 and S2. HR regular. JVP not elevated. Resp: Lungs clear with no crackles or wheezes, respirations non labored. Abd: Soft. + BS. No bruit. Non tender. Ext: Warm. No cyanosis. No edema. Skin: No rash. Neuro: Intact. No asterixis. Psych: Mood appropriate Labs: Recent Results (from the past 72 hour(s)) Phosphorus Result Value Ref Range Phosphorus 3.4 2.5 - 4.5 mg/dL Protein/Creatinine Ratio, urine Result Value Ref Range Protein, Urine 6 0 - 12 mg/dL Creatinine, Urine 119 mg/dL Protein / Creatinine Ratio, Urine 0.1 ratio PTH Result Value Ref Range Parathyroid Hormone 76 (H) 15 - 65 pg/mL Uric acid Result Value Ref Range Uric Acid 6.0 2.5 - 6.5 mg/dL U Albumin/Cre Ratio Result Value Ref Range Albumin, Urine <3.0 mg/L Creatinine, Urine 119 mg/dL Albumin / Creatinine Ratio, Urine Vitamin D, 25-Hydroxy Result Value Ref Range Vitamin D Total 25 OH 44 21 - 100 ng/ml Vitamin D Total 25 OH Interp Sufficient CBC (with Diff) Result Value Ref Range White Blood Cell 5.51 4.00 - 9.50 x10(3)/mcL Red Blood Cell 3.80 (L) 4.00 - 5.21 x10(6)/mcL Hemoglobin 12.5 11.7 - 15.5 g/dL Hematocrit 38.7 35.7 - 45.8 % Mean Cell Volume 101.8 (H) 82.6 - 94.4 fL Mean Cell Hemoglobin 32.9 (H) 27.1 - 32.0 pg Mean Cell Hemoglobin Concentration 32.3 31.7 - 35.0 g/dL Platelet 217 145 - 357 x10(3)/mcL Mean Platelet Volume 11.1 7.6 - 12.9 fL RDW Standard Deviation 46.0 37.0 - 46.0 fL RDW coefficient of variation 12.2 11.5 - 14.1 % NRBC% auto 0.0 % NRBC Absolute <0.01 <0.01 x10(3)/mcL Neutrophil % 46.1 % Neutrophil Absolute (ANC) - Automated 2.54 1.70 - 6.10 x10(3)/mcL Lymph % 44.3 % Lymph Absolute 2.44 0.90 - 3.20 x10(3)/mcL Monocyte % 7.8 % Monocyte Absolute 0.43 0.30 - 0.90 x10(3)/mcL Eos % 0.9 % Eos Absolute 0.05 0.00 - 0.40 x10(3)/mcL Basophil % 0.5 % Baso Absolute <0.04 0.00 - 0.10 x10(3)/mcL Immature Gran % 0.4 % Immature Gran Absolute <0.04 0.00 - 0.04 x10(3)/mcL Basic Metabolic Panel (non-fasting) Result Value Ref Range Glucose 83 65 - 199 mg/dL Blood Urea Nitrogen 11 8 - 18 mg/dL Creatinine 1.22 (H) 0.70 - 1.20 mg/dL Sodium 138 135 - 145 mMol/L Potassium 4.2 3.5 - 5.0 mMol/L Chloride 100 98 - 107 mMol/L Carbon Dioxide 27 22 - 31 mMol/L Anion Gap 11 5 - 15 mMol/L Calcium 9.5 8.5 - 10.5 mg/dL Est Glomerular Filtration Rate - Female 51 mL/min/1.73 m?? Fasting Status No Albumin Level Result Value Ref Range Albumin 4.1 3.2 - 5.2 g/dL Creatinine (mg/dL) Date Value 01/03/2024 1.22 (H) 05/08/2023 1.45 (H) 01/02/2023 1.27 (H) 08/14/2022 1.14 11/20/2016 1.12 A/P: Miguelina Morales is a 58 y.o. female with a PMHx of tardive dyskinesia, PTSD, anxiety seen today for follow up of Chronic Kidney Disease. 1. CKD stage stage 3: Serum Creatinine 1.22, eGFR 51 Renal function remains stable, with a noted improvement in creatinine levels. There is an absence of proteinuria, and blood pressure is effectively managed. We have reviewed the risk factors associated with the deterioration of renal function and discussed the importance of maintaining optimal blood pressure control, adequate hydration, and the avoidance of nonsteroidal anti-inflammatory drugs (NSAIDs). Currently, there is no clinical indication for renal replacement therapy (TUBING SUPERVISOR). 2. Anemia: Hgb 12.5 Hemoglobin levels fall within the reference range, indicating the absence of anemia. No interventions are required at this time. Goal Hgb >10, Ferritin >100ng/dl, TSAT >20% 3. Acid/Base Status: Bicarb 27 Metabolic Acidosis not noted 4. Electrolytes: Sodium and Potassium wnl 5. Bone and Mineral: Calcium, Phos at goal for current renal function. Vitamin D sufficient. PTH mildly above range. Stage 3 - PTH 35-70pg/ml Phos 2.7-4.6 Ca 8.5-10.5mg/dl 6. Transplant/ Vascular access referral Not indicated. 7. Return to clinic 4 months with labs or sooner if needed for new or worsening symptoms. Encouraged her to let me know if she has any questions or concerns in the interim. 45 minutes spent seeing the patient, reviewing the chart, and coordination of care. Nenita W Waldron-Dot, MATERIALS PLANNER/PRODUCTION PLANNER [employer] 2nd floor, [employer] [address] [place] [id number] CC: Yumiko Tavarez MD [email or web address] documented in this encounter Plan of Treatment Upcoming Encounters Date Type Department Care Team (Late st Contact Info) Description 02/04/2024 1:00 PM EST [place] [address] Alta Caban [address]N [facility] [place] [address] documented as of this encounter Visit Diagnoses Diagnosis Hypertension, unspecified type Hyperparathyroidism Hyperparathyroidism, unspecified Stage 3 chronic kidney disease, unspecified whether stage 3a or 3b CKD Tardive dyskinesia Subacute dyskinesia due to drugs Functional neurological symptom disorder with abnormal movement documented in this encounter Care Teams Insecticide Mixer Relationship Specialty Start Date End Date Yumiko Tavarez MD [address] [place] [address] PCP - General Family Medicine 07/07/16 documented as of this encounter
--- OUTSIDE RECORDS SUMMARY | 2024-01-28 12:23 | XMS_ITS | Encounter Summary ---
Author Organization [facility] Address [address] [place] [address] Care Team Providers Care Sports Fitness And Wellness Director Name Role Phone Yumiko Tavarez MD Primary Care Provider Reason for Visit * Reason Onset Date Comments Appointment Related 04/06/2020 Encounter Details Date Type Department Care Team (Late st Contact Info) Description 04/06/2020 Telephone [facility] Neurology - [address] [id number] Alta Walter MD [address] [place] [address] [address] [place] [phone] Appointment Related Social History Tobacco Use Types [...] Thakkar to 05/26/20 at 10:30am 3 mo FUR/marielena Meeting ID: [id number] Password: [id number] documented in this encounter Plan of Treatment Upcoming Encounters Date Type Department Care Team (Late st Contact Info) Description 02/13/2024 13:00 EST Office Visit [facility] Neurology - [address] [phone] Alta Walter MD [address] [place] [address], [address] [place] [phone] documented as of this encounter Visit Diagnoses Not on filedocumented in this encounter Care Teams Sports Fitness And Wellness Director Relationship Specialty Start Date End Date Yumiko Tavarez MD [address] [place] [phone] PCP - General 12/29/19 documented as of this encounter
--- OUTSIDE RECORDS SUMMARY | 2024-01-28 12:23 | XMS_ITS | Encounter Summary ---
[place] [address] Care Team Providers Care Documentation Improvement Specialist Name Role Phone Yumiko Tavarez MD Primary Care Provider [phone] Encounter Details Date Type Department Care Team [...] 1:00 PM EST Office [place] [address] Alta Caban APRN [facility] [place] [address] documented as of this encounter Visit Diagnoses Not on filedocumented in this encounter Care Teams Documentation Improvement Specialist Relationship Specialty Start Date End Date Yumiko Tavarez MD [address] [place] [address] PCP - General Family Medicine 07/07/16 documented as of this encounter
--- OUTSIDE RECORDS SUMMARY | 2024-01-28 12:23 | XMS_ITS | Encounter Summary ---
Author Organization [facility] Address [address] [place] [address] Care Team Providers Care Manager Export Name Role Phone Unknown, Provider Primary Care Provider Yumiko Loomis MD Primary Care Provider [phone] Reason for Visit * Reason Onset Date Comments Appointment Related 11/18/2018 Encounter Details Date Type Department Care Team (Late st Contact Info) Description 11/18/2018 Telephone [facility] Neurology - [address] [phone] Unknown, Provider, MD Appointment Related Social History Tobacco Use Types [...] [facility] Neurology - [address] [place] [address] [place] [address] Alta Walter MD [address] [place] [address], [address] [place] [phone] documented as of this encounter Visit Diagnoses Not on filedocumented in this encounter Care Teams Manager Export Relationship Specialty Start Date End Date Unknown, Provider, PCP - General 08/05/08 12/28/19 Yumiko Tavarez MD [address] [place] [phone] PCP - General 12/29/19 documented as of this encounter
--- OUTSIDE RECORDS SUMMARY | 2024-01-28 12:23 | XMS_ITS | Encounter Summary ---
Author Organization [facility] Address [address] [place] [address] Care Team Providers Care Acid Supervisor Name Role Phone Yumiko Tavarez MD Primary Care Provider [phone] Encounter Details Date Type Department Care Team (Late st Contact Info) Description 03/12/2020 Lab Requisition [facility] Pathology & Laboratory Medicine - [facility] [address] [place] [address] Yoli Jeong MD [address] [place] [address],[address] [phone] Encounter for other general examination Social History Tobacco Use Types Packs/Day Years Used Date Smoking Tobacco: Every Day Cigarettes 03 29 Interpersonal Safety Answer Date Record ed Physically [...] Description 02/13/2024 13:00 EST Office Visit [facility] Neurology - [address] [place] [address] [place] [phone] Alta Walter MD [address] [place] [address], [address] [place] [phone] documented as of this encounter Procedures Procedure [...] epithelial change. - Chronic cervicitis 03/17/2020 16:48 [facility] Diagnosis Comment Within the endocervical curettage (A), there is an isolated fragment of squamous epithelium with cytologic changes that are suspicious but not fully diagnostic for a low-grade squamous intraepithelial lesion (CODI 1). Deeper sections have been examined. 03/17/2020 16:48 [facility] Attestation There was significant resident/fellow involvement in the diagnostic evaluation of this case. By the signature below, the attending physician certifies that they have personally conducted a gross and/or microscopic examination of the described specimens and rendered or confirmed the above diagnosis. 03/17/2020 16:48 [facility] at 1648 Clinical History ASCUS, (+) HPV 03/17/2020 16:48 [facility] Gross Description A. Received [...] B1. CHRIS ULLOA(ASCP) 03/15/2020 8:30 03/17/2020 16:48 [facility] Resident/Julio César w: Jonah Patterson MD 03/17/2020 16:48 [facility] Performing Lab [facility] 16:48 EST [facility] Scanned Images 03/17/2020 16:48 EST [facility] Tissue ENTIRE WALL OF CERVIX / Unknown 03/12/2020 15:35 EST 03/12/2020 21:23 EST Tissue specimen (specimen) CERVIX UTERI STRUCTURE / Unknown 03/12/2020 15:35 EST 03/12/2020 21:23 EST us Yoli Jeong MD PATHOLOGY ORDERABLES Final Res ult [facility] [address] [place] [address] documented in this encounter Visit Diagnoses Diagnosis Encounter for other general examination documented in this encounter Care Teams Acid Supervisor Relationship Specialty Start Date End Date Yumiko Tavarez MD [address] [place] [phone] PCP - General 12/29/19 documented as of this encounter
--- OUTSIDE RECORDS SUMMARY | 2024-01-28 12:23 | XMS_ITS | Encounter Summary ---
Author Organization [facility] [place] [address] Care Team Providers Care Comprehensive Ophthalmologist Name Role Phone Yumiko Tavarez MD Primary Care Provider [phone] Encounter Details Date Type Department Care Team (Latest Contact Info) Description 05/08/2023 3:00 PM EST Laboratory Appointment Lab [address] [place] [phone] Stage 3a chronic kidney disease; Hyperparathyroidism Social [...] 1:00 PM [place] [phone] Alta Caban APRN [facility] [place] [address] documented as of this encounter Procedures Procedure Name Priority Date/Time Associated Diagnosis Comments HC URINALYSIS ROUTINE Routine 05/08/2023 2:02 PM EST Stage 3a chronic kidney disease PROTEIN/CREATININE RATIO, URINE Routine 05/08/2023 2:02 PM EST Stage 3a chronic kidney disease U ALBUMIN/CRE RATIO Routine 05/08/2023 2 :02 PM EST Stage 3a chronic kidney disease PTH Routine 05/08/2023 1:54 PM EST Stage 3a chronic kidney disease Hyperparathyroidism HEMOGRAM Routine 05/08/2023 1:54 PM EST Stage 3a chronic kidney disease DIFFERENTIAL, AUTOMATED Routine 05/08/2023 1:54 PM EST Stage 3a chronic kidney disease VITAMIN D, 25-HYDROXY Routine 05/08/2023 1:54 PM EST Stage 3a chronic kidney disease Hyperparathyroidism CBC (WITH DIFF) Routine 05/08/2023 1:54 PM EST Stage 3a chronic kidney disease URIC ACID Routine 05/08/2023 1:54 PM EST Stage 3a chronic kidney disease PHOSPHORUS Routine 05/08/2023 1:54 PM EST Stage 3a chronic kidney disease Hyperparathyroidism ALBUMIN LEVEL Routine 05/08/2023 1:54 PM EST Stage 3a chronic kidney disease BASIC METABOLIC PANEL Routine 05/08/2023 1:54 PM EST Stage 3a chronic kidney disease documented in this encounter Results * (ABNORMAL) _Urinalysis with microscopic (05/08/2023 2:02 PM EST) Glucose, Urine Dipstick Negative Negative mg/dL [facility] Protein, Urine Dipstick Negative Negative mg/dL [facility] Bilirubin, Urine Dipstick Negative Negative mg/dL [facility] Comment: Clinical correlation required for positive Urine Bilirubin results as false positive may occur with some drugs and drug related products. If a false positive is suspected a serum total bilirubin should be considered if clinically indicated. Urobilinogen, Urine Dipstick Normal Normal mg/dL [facility] pH, Urn (dipstick) 5.5 5.0 - 8.0 [facility] Blood, Urine Dipstick Small(A) Negative mg/dL [facility] Ketone, Urine Dipstick Negative Negative mg/dL [facility] Nitrite, Urine Dipstick Negative Negative [facility] Leukocytes, Urine Dipstick Negative Negative mcL [facility] Appearance, Urine Dipstick Clear Clear [facility] Specific [place] Urine Automated 1.016 1.005 - 1.030 [facility] Color, Urine Dipstick Yellow Yellow [facility] RBC, Urine 2 0 - 4 /HPF [facility] WBC, Urine 1 0 - 5 /HPF [facility] Squamous Epithelial Cells Raw Data, Urine 1 <=4 /HPF [facility] Urine 05/08/2023 2:02 PM EST 05/08/2023 2:17 PM EST Narrative Resulting Agency Comment Spec In Lab Nenita Grimes RADIOLOGY ASST URINE ORD ERABLES [facility] [place] [address] * U Albumin/Cre Ratio (05/08/2023 2:02 PM EST) Albumin / Creatinin Ratio, Urine Not Calculated 0 - 29 mcg/mg Cr [facility] Comment: Reference Ranges: <30 mcg/mg: Normal [...] [employer] Supplements (2012) 2, 357? 362 Albumin, Urine <3.0 mg/L [facility] Creatinine, Urine 128 mg/dL [facility] Urine 05/08/2023 2:02 PM EST 05/08/2023 2:17 PM EST Narrative Resulting Agency Comment Spec In Lab Nenita Grimes APRN URINE ORD ERABLES Performing Organization Address City/[facility]/ZIP Co de Phone Number [facility] [place] [address] * Protein/Creatinine Ratio, urine (05/08/2023 2:02 PM EST) Creatinine, Urine 128 mg/dL [facility] Protein, Urine <6 0 - 12 mg/dL [facility] Protein / Creatinine Ratio, Urine <0.1 ratio [facility] Urine 05/08/2023 2:02 PM EST 05/08/2023 2:17 PM EST Narrative Resulting Agency Comment Spec In Lab Nenita Grimes APRN URINE ORD ERABLES Performing Organization Address City/[facility] Co de Phone Number [facility] [place] [address] * Differential, Automated (05/08/2023 1:54 PM EST) Neutrophil % 51.6 % [facility] Neutrophil Absolute 3.08 1.70 - 6.10 x10(3)/[facility] Lymph % 39.8 % [facility] Lymphocytes Abs 2.4 0.9 - 3.2 x10(3)/[facility] Monocyte % 6.9 % [facility] Monocyte Abs 0.4 0.3 - 0.9 x10(3)/[facility] Eos % 1.2 % [facility] Eosinophils Abs 0.1 0.0 - 0.4 x10(3)/[facility] Basophil % 0.3 % [facility] Baso Absolute 0.0 0.0 - 0.1 x10(3)/[facility] Immature Gran % 0.20 % [facility] Comment: Immature granulocytes(IG's)percentage and absolute count will include metamyelocytes, myelocytes, and promyelocytes. Blood smears from CBCs yielding IG's will be scanned manually for concordance. If this scan disagrees with the automated IG or if promyelocytes are noted, a manual differential will be performed. Immature Gran Absolute 0.01 0.00 - 0.04 x10(3)/mcL [facility] Blood 05/08/2023 1:54 PM EST 05/08/2023 2:00 PM EST Narrative Resulting Agency Comment Spec In Lab Ligia Isaac John ROBERTN HEMATOLOGY ORDERABLE S [facility] [place] [address] * (ABNORMAL) Hemogram (05/08/2023 1:54 PM EST) White Blood Cell 6.0 4.0 - 9.5 x10(3)/mc L [facility] Red Blood Cell 3.94(L) 4.00 - 5.21 x10(6)/mc L [facility] Hemoglobin 12.9 11.7 - 15.5 g/dL [facility] Hematocrit 39.0 35.7 - 45.8 % [facility] Mean Cell Volume 99.0(H) 82.6 - 94.4 fL [facility] Mean Cell Hemoglobin 32.7(H) 27.1 - 32.0 pg [facility] Mean Cell Hemoglobin Concentration 33.1 31.7 - 35.0 g/dL [facility] Platelet 207 145 - 357 x10(3)/mc L [facility] RDW Standard Deviation 42.5 37.0 - 46.0 fL [facility] RDW coefficient of variation 11.7 11.5 - 14.1 % [facility] Mean Platelet Volume 10.9 7.6 - 12.9 fL [facility] NRBC% auto 0.0 % [facility] NRBC Absolute 0.000 0.000 - 0.000 x10(3)/mc L [facility] Blood 05/08/2023 1:54 PM EST 05/08/2023 2:00 PM EST Narrative Resulting Agency Comment Spec In Lab Ligia Isaac John LERNER HEMATOLOGY ORDERABLE S Performing Organization Address City/[facility]/ZIP Co de Phone Number [facility] [place] [address] * (ABNORMAL) Basic Metabolic Panel (non-fasting) (05/08/2023 1:54 PM EST) Glucose 89 65 - 199 mg/dL [facility] Comment:Diabetes: >=200 mg/d L plus symptoms Blood Urea Nitrogen 11 8 - 18 mg/dL [facility] Creatinine 1.45(H) 0.70 - 1.20 mg/dL [facility] Sodium 140 135 - 145 mmol/L [facility] Potassium 4.0 3.5 - 5.0 mmol/L [facility] Comment: Please note: ??Patients with WBC >100,000 may have falsely elevated Potassium levels. ??For accurate Potassium quantification in these patients send serum separator tube (gold top) for subsequent determinations. ??Contact the Clinical Chemistry Laboratory if there are any questions. Chloride 102 98 - 107 mmol/L [facility] Carbon Dioxide 29 22 - 31 mmol/L [facility] Anion Gap 9 5 - 15 mmol/L [facility] Calcium 9.2 8.5 - 10.5 mg/dL [facility] Est Glomerular Filtration Rate 41(L) >=60 mL/min/1. 73 m?? [facility] Comment: This patient's estimated GFR was [...] In Lab Ligia Lopez APRN CHEMISTRY ORDERABLES [facility] [place] [address] * (ABNORMAL) PTH (05/08/2023 1:54 PM EST) Parathyroid Hormone 84(H) 15 - 65 pg/mL [facility] Blood 05/08/2023 1:54 PM EST 05/08/2023 2:00 PM EST Narrative Resulting Agency Comment Spec In Lab Ligai Lopez APRN CHEMISTRY ORDERABLES [facility] [place] [address] * Albumin Level (05/08/2023 1:54 PM EST) Albumin 4.1 3.2 - 5.2 g/dL [facility] Blood 05/08/2023 1:54 PM EST 05/08/2023 2:00 PM EST Narrative Resulting Agency Comment Spec In Lab Ligia Lopez APRN CHEMISTRY ORDERABLES Performing Organization Address City/[facility]/ZIP Co de Phone Number [facility] [place] [address] * (ABNORMAL) Uric acid (05/08/2023 1:54 PM EST) Uric Acid 6.8(H) 2.5 - 6.5 mg/dL [facility] Blood 05/08/2023 1:54 PM EST 05/08/2023 2:00 PM EST Narrative Resulting Agency Comment Spec In Lab Ligia Lopez APRN CHEMISTRY ORDERABLES Performing Organization Address City/[facility]/ZIP Co de Phone Number [facility] [place] [address] * Phosphorus (05/08/2023 1:54 PM EST) Phosphorus 3.6 2.5 - 4.5 mg/dL [facility] Blood 05/08/2023 1:54 PM EST 05/08/2023 2:00 PM EST Narrative Resulting Agency Comment Spec In Lab Ligia Lopez APRN CHEMISTRY ORDERABLES Performing Organization Address City/[facility]/ZIP Co de Phone Number [facility] [place] [address] * Vitamin D, 25-Hydroxy (05/08/2023 1:54 PM EST) Vitamin D Total 25 OH 47 21 - 100 ng/mL [facility] Vit D Interp Sufficient [facility] Blood 05/08/2023 1:54 PM EST 05/08/2023 2:00 PM EST Narrative Resulting Agency Comment Spec In Lab Ligia Lopez RADIOLOGY ASST CHEMISTRY ORDERABLES Performing Organization Address City/State/[facility] Co de Phone Number [facility] [place] [address] documented in this encounter Visit Diagnoses Diagnosis Stage 3a chronic kidney disease Hyperparathyroidism Hyperparathyroidism, unspecified documented in this encounter Care Teams Comprehensive Ophthalmologist Relationship Specialty Start Date End Date Yumiko Tavarez MD [address] [place] [address] PCP - General Family Medicine 07/07/16 documented as of this encounter
--- OUTSIDE RECORDS SUMMARY | 2024-01-28 12:23 | XMS_ITS | Encounter Summary ---
Author Organization [facility] [place] [address] Care Team Providers Care Professional Advisor Name Role Phone Yumiko Tavarez MD Primary Care Provider [phone] Encounter Details Date Type Department Care Team (Late st Contact Info) Description 01/25/2024 [place] [phone] Joao Lamb Social History Tobacco Use Types Packs/Day Years [...] encounter Miscellaneous Notes * Telephone Encounter - Joao Lamb - 01/25/2024 12:08 PM EST LMOM - We have an opening on 01/27 for Alta Caban - from wait list. documented in this encounter Plan of Treatment Upcoming Encounters Date Type Department Care Team (Late st Contact Info) Description 02/04/2024 1:00 PM [place] [phone] Alta Caban, YANN [facility] [place] [address] documented as of this encounter Visit Diagnoses Not on filedocumented in this encounter Care Teams Professional Advisor Relationship Specialty Start Date End Date Yumiko Tavarez MD [address] [place] [address] PCP - General Family Medicine 07/07/16 documented as of this encounter
--- OUTSIDE RECORDS SUMMARY | 2024-01-28 12:23 | XMS_ITS | Encounter Summary ---
Author Organization [facility] Address [address] [place] [address] Care Team Providers Care Dockworker Name Role Phone Yumiko Tavarez MD Primary Care Provider [phone] Encounter Details Date Type Department Care Team [...] Description 02/13/2024 13:00 EST Office Visit [facility] Neurology - [place] [address] [place] [address] Alta Walter MD [address] [place] [address] [address] [place] [address] documented as of this encounter Visit Diagnoses Not on filedocumented in this encounter Care Teams Dockworker Relationship Specialty Start Date End Date Yumiko Tavarez MD [address] [place] [phone] PCP - General 12/29/19 documented as of this encounter
--- OUTSIDE RECORDS SUMMARY | 2024-01-28 12:23 | XMS_ITS | Encounter Summary ---
Author Organization [facility] Address [address] [place] [address] Care Team Providers Care Artificial Cherry Maker Name Role Phone Yumiko Tavarez MD Primary Care Provider [phone] Reason for Visit * Reason Comments New Patient Visit * Referral (Routine) - Closed Specialty Diagnoses / Procedures [facility] To Contact Neurology Diagnoses Parkinson's disease ([facility]) Yumiko Tavarez MD [address] [place] [phone] Phone: tel: fax: Polo Peter MD Phone: tel: fax: Referral ID Status Reason Start Date Expiration Date Visits Re quested Visits Authorized [id number] Closed 1 1 Encounter Details Date Type Department Care Team (Late st Contact Info) Description 02/23/2020 13:15 EST Office Visit [facility] - [place] [address] [place] [phone] Alta Walter MD [address] [place] [address] [address] [place] [address] Involuntary movements (Primary Dx); Tremor; Peripheral [...] Consultation Clinician Requesting Consultation: Yumiko Tavarez MD [address] [place] [address] Primary Informatics Pharmacist: Yumiko Tavarez [address] [place] [address] ASSESSMENT & PLAN / RECOMMENDATIONS 1. Involuntary movements 2. Tremor 3. Peripheral polyneuropathy 4. PTSD (post-traumatic stress disorder) Miguelina Morales is a 55 y.o. woman who was referred to the [facility] Movement Disorders clinic for evaluation and management of involuntary movements and parkinsonism. She reports at least 8 years of hyperkinetic movements, which started distally in the toes and progressed proximally. Three years ago, she was evaluated by neurologists at [facility] and had a thorough evaluation for [...] # Will try to obtain [facility] (psychiatry) # If she has taken neuroleptics in the past, I might be more convinced that there is some Return to clinic: 2-3 months (can be Telehealth) SUBJECTIVE Reason for consultation/ Chief complaint: Parkinsonism, involuntary movements History of Presenting Illness (HPI): Miguelina Morales is a 55 y.o. woman who was referred to the [facility] Movement Disorders clinic for evaluation and [...] difficulty - has dysphagia, referral sent to [facility] Current Medications: Outpatient Medications Marked as [...] naloxone (NARCAN) 4 mg/actuation nasal spray 1 [place] by nasal route as needed. ??? 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 If there are any questions, please contact the office at [phone]. Alta Thakkar MD Attending Physician, Movement Disorders Department of Neurology documented in this encounter Plan of Treatment Upcoming Encounters Date Type Department Care Team (Late st Contact Info) Description 02/13/2024 13:00 EST Office Visit [facility] - [address] [place] [address] [place], [place] [phone] Alta Walter MD [address] [place] [address] 2 [place] [address] documented as of this encounter Visit Diagnoses Diagnosis Involuntary movements- Primary Abnormal involuntary movements Tremor Abnormal involuntary movements Peripheral polyneuropathy Unspecified hereditary and idiopathic peripheral neuropathy PTSD (post-traumatic stress disorder) Posttraumatic stress disorder documented in this encounter Historical Medications * This list may reflect changes made after this encounter. zolpidem (AMBIEN) 10 mg tablet Take 1 Tablet by mouth. Every other night pregabalin (LYRICA) 150 mg capsule every morning. 02/02/2020 pregabalin (LYRICA) 50 mg capsule 2 Capsules. In PM 02/02/2020 oxyCODONE-acetami nophen (PERCOCET) 10-325 mg per tablet Take 1 [...] daily. added in this encounter Care Teams Artificial Cherry Maker Relationship Specialty Start Date End Date Yumiko Tavarez MD [address] [place] [phone] PCP - General 12/29/19 documented as of this encounter
--- OUTSIDE RECORDS SUMMARY | 2024-01-28 12:23 | XMS_ITS | Encounter Summary ---
Author Organization [facility] Address [address] [place] [address] Care Team Providers Care Manager Resort Name Role Phone Yumiko Tavarze MD Primary Care Provider Reason for Visit * Reason Onset Date Comments Appointment Related 06/09/2020 Encounter Details Date Type Department Care Team (Late st Contact Info) Description 06/09/2020 Telephone [facility] Neurology - [address] [phone] Cat Dorantes MD [address] [place] [address] [address] [place] [phone] Appointment Related Social History Tobacco Use Types [...] NPV TVD extended with Dr Dorantes to Sun07/06/20 at 1030. [place]: [phone] [email or web address] Meeting ID: [id number] Password: [email or web address] * Telephone Encounter - Meme Lemus - 06/15/2020 1551 EDT Outreached Miguelina, rescheduled the cancelled appt from 06/15/2020 at 8:[address] Dorantes. New NPV TVD EXT appt is on Sunday06/28/2020 at 9:[address] Dorantes [place]: [phone] [email or web address] Meeting ID: [id number] Password: [email or web address] * Telephone Encounter - Monae Chavez - 06/15/2020 0810 EDT Patient calling to cancel the 8:45 appointment today with as she is ill. She will call back and reschedule when she feels better. * Telephone Encounter - Meme Lemus - 06/09/2020 1232 EDT Outreached Miguelina, scheduled an NPV TVD EXT appt with Dr. Dorantes on Sunday06/15/2020 at 8:45 AM. [place]: [phone] EMail: [email or web address] Meeting ID: [phone] Password: [email or web address] documented in this encounter Plan of Treatment Upcoming Encounters Date Type Department Care Team (Late st Contact Info) Description 02/13/2024 13:00 EST Office Visit [facility] Neurology - [address] [address] Alta Walter MD [address] [place] [address] 2 [place] [phone] documented as of this encounter Visit Diagnoses Not on filedocumented in this encounter Care Teams Manager Resort Relationship Specialty Start Date End Date Yumiko Tavarez MD [address] [place] [phone] PCP - General 12/29/19 documented as of this encounter
--- OUTSIDE RECORDS SUMMARY | 2024-01-28 12:23 | XMS_ITS | Encounter Summary ---
Author Organization [facility] Address [address] [place] [address] Care Team Providers Care Underwriter Name Role Phone Yumiko Tavarez MD Primary Care Provider [phone] Reason for Visit * Radiology Services (Routine) - Receiving Office to Obtain Authorization Specialty Diagnoses / Procedures Referred By Contac t Referred To Contact Nuclear Medicine Diagnoses Parkinsonism, unspecified Parkinsonism type (HCC-CMS) Procedures NM DATSCAN WITH SPECT/CT NM DATSCAN SPECT Alta Walter MD Phone: tel: fax: Referral ID Status Reason Start Date Expiration Date Visits Requested Visits Authorized [id number] Receiving Office to Obtain Authorization 04/07/2020 1 1 Encounter Details Date Type Department Care Team (Latest Contact Info) Description 05/20/2020 11:08 EDT - 05/20/2020 23:59 EDT Hospital Encounter [facility] Radiology Nuclear [place] [address] Discharge Disposition: Home or Self Care Social [...] this encounter Medications at Time of Discharge calcium carbonate (TUMS) 200 mg calcium (500 [...] 1 Capsule by mouth every morning. 12/17/2019 oxyCODONE-acetami nophen (PERCOCET) 10-325 mg per tablet [...] Office Visit [facility] Neurology - [address] [phone] Alta Walter MD [address] [place] [address], Level [address] [place] [address] documented as of this encounter Procedures Procedure Name Priority Date/Time Associated Diagnosis Comments NM DATSCAN WITH SPECT/CT Routine 05/20/2020 15:56 EDT Parkinsonism, unspecified Parkinsonism type ([facility]) documented in this encounter Results * NM [...] abnormality seen on the accompanying low-dose CT. us Alta Walter MD G NM ORDERABLES Edited Res ult - Final documented in this encounter Visit Diagnoses Not on filedocumented in this encounter Care Teams Underwriter Relationship Specialty Start Date End Date Yumiko Tavarez MD [address] [place] [phone] PCP - General 12/29/19 documented as of this encounter
--- OUTSIDE RECORDS SUMMARY | 2024-01-28 12:23 | XMS_ITS | Encounter Summary ---
Author Organization [facility] Address [address] [place] [address] Care Team Providers Care Bus Monitor Name Role Phone Yumiko Tavarez MD Primary Care Provider [phone] Reason for Visit * Reason Onset Date Comments Results 05/21/2020 Encounter Details Date Type Department Care Team (Late st Contact Info) Description 05/21/2020 Telephone [facility] Neurology - S [address] [id number] Alta Walter MD [address] [place] [address] Level 2 [place] [address] Results Social History Tobacco Use Types Packs/Day [...] Encounter - Sunni Ivey RN - 05/21/2020 4982 EDT Miguelina sent a detailed Imnish message to get the Tyrell scan results. Sent to Dr. Thakkar to review and interpret. * Telephone Encounter - JessiKadeemGhazala - 05/21/2020 1406 EDT Miguelina called requesting for a call back to discuss results from DATscan. Contact patient to discuss. documented in this encounter Plan of Treatment Upcoming Encounters Date Type Department Care Team (Late st Contact Info) Description 02/13/2024 13:00 EST Office Visit [facility] Neurology - S [address] 248041 Alta Walter MD [address] [place] [address], Level 2 [place] [phone] documented as of this encounter Visit Diagnoses Not on filedocumented in this encounter Care Teams Bus Monitor Relationship Specialty Start Date End Date Yumiko Tavarez MD [address] [place] [phone] PCP - General 12/29/19 documented as of this encounter
--- OUTSIDE RECORDS SUMMARY | 2024-01-28 12:23 | XMS_ITS | Encounter Summary ---
Author Organization [facility] Address [address] [place] [address] Care Team Providers Care Slab Off Mill Tender Name Role Phone Yumiko Tavarez MD Primary Care Provider [phone] Reason for Visit * Reason Onset Date Comments Medication Management 06/01/2020 pt needs a ssistance acquiring this medication Encounter Details Date Type Department Care Team (Late st Contact Info) Description 06/01/2020 Telephone [facility] Neurology - S [address] [id number] Alta Walter MD [address] [place] [address] Level 2 [place] [address] Medication Management (pt needs assistance [...] to. We first sent this script to [facility] in [place], they do not do specialty meds. Then we sent it to [facility] yesterday. Pt called [facility] and they said to pt that her insuranceco. will not pay for it. Pt uses [facility]. [facility] called pt's insurance company and the insurance said to go onto a certain website and request a prior authorization. Website: [email or web address] Insurance company wants to use [facility] once the prior auth is obtained. 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
--- OUTSIDE RECORDS SUMMARY | 2024-01-28 12:23 | XMS_ITS | Encounter Summary ---
Author Organization [facility] Address [address] [place] [address] Care Team Providers Care Petroleum Blending Plant Operator Name Role Phone Yumiko Tavarez MD Primary Care Provider [phone] Encounter Details Date Type Department Care Team (Late st Contact Info) Description 04/07/2020 Orders Only [facility] Radiology - [address] [id number] Sarkis Hearn MD [address] [place] [address] 1 [place] [phone] Social History Tobacco Use Types Packs/Day Years [...] 02/13/2024 13:00 EST Office Visit [facility] Neurology - S [place] [address] [place] [address] [id number] Alta Walter MD [address] [place] [address] 2 [place] [phone] documented as of this encounter Visit Diagnoses Not on filedocumented in this encounter Care Teams Petroleum Blending Plant Operator Relationship Specialty Start Date End Date Yumiko Tavarez MD [address] [place] [address] PCP - General 12/29/19 documented as of this encounter
--- OUTSIDE RECORDS SUMMARY | 2024-01-28 12:23 | XMS_ITS | Encounter Summary ---
Author Organization [facility] Address [address] [place] [address] Care Team Providers Care Personal Counselor Name Role Phone Unknown, Provider Primary Care Provider Unava ilable Encounter Details Date Type Department Care Team (Late Contact Info) Description 11/10/2010 Results Only [facility] Laboratory Services - [facility] ([facility] [address] [place] [address] Jerri Topete MD [address] [place] [address] [place] [address] Social History Tobacco Use Types Packs/Day Years [...] Visit [facility] Neurology - S [place] [address] [place], [place] [address] Alta Walter MD [address] [place] [address], Level 2 [place] [address] documented as of this encounter [...] ? ALMAZAN, CYDNEY ? Accession #: ? [id number] ? : ? 1965 (Age: 45) ??F [...] Report ? [facility] 11/10/2010 11/11/2010 us Jerri Topete MD PATHOLOGY ORDERABLES Final Resu lt Performing Organization Address City/State/[facility] Co de Phone Number [facility] [address] [place] [address] documented in this encounter Visit Diagnoses Not on filedocumented in this encounter Care Teams Personal Counselor Relationship Specialty Start Date End Date Unknown, Provider, PCP - General 08/05/08 12/28/19 documented as of this encounter
--- OUTSIDE RECORDS SUMMARY | 2024-01-28 12:23 | XMS_ITS | Encounter Summary ---
Author Organization [facility] Address [address] [place] [address] Care Team Providers Care Railroad Operating Engineer Name Role Phone Yumiko Tavarez MD Primary Care Provider [phone] Reason for Visit * Radiology Services (Routine) - Receiving Office to Obtain Authorization Specialty Diagnoses / Procedures Referred By Contac t Referred To Contact Nuclear Medicine Diagnoses Parkinsonism, unspecified Parkinsonism type (HCC-CMS) Procedures NM DATSCAN WITH SPECT/CT NM DATSCAN SPECT Alta Walter MD Phone: tel: fax: Referral ID Status Reason Start Date Expiration Date Visits Requested Visits Authorized [id number] Receiving Office to Obtain Authorization 04/07/2020 1 1 Encounter Details Date Type Department Care Team (Latest Contact Info) Description 05/20/2020 11:00 EDT - 05/20/2020 11:07 EDT Hospital Encounter [facility] Radiology Nuclear [place] [address] Parkinsonism, unspecified Parkinsonism type (HCC-CMS) Discharge Disposition: [...] Info) Description 02/13/2024 13:00 EST Office Visit [facility] Neurology - S [address] 057341 Alta Walter MD [address] [place] [address], Level 2 [place] [address] documented as of this encounter [...] accompanying low-dose CT. us Alta Walter MD [facility] NM ORDERABLES Edited Res ult - Final documented in this encounter Visit Diagnoses Diagnosis [...] 05/20/2020 documented in this encounter Care Teams Railroad Operating Engineer Relationship Specialty Start Date End Date Yumiko Tavarez MD [address] [place] [phone] PCP - General 12/29/19 documented as of this encounter
--- OUTSIDE RECORDS SUMMARY | 2024-01-28 12:23 | XMS_ITS | Encounter Summary ---
Author Organization [facility] Address [address] [place] [address] Care Team Providers Care Criminal Judge Name Role Phone Yumiko Tavarez MD Primary Care Provider [phone] Reason for Visit * Reason Onset Date Comments Appointment Related 01/30/2020 Encounter Details Date Type Department Care Team (Late st Contact Info) Description 01/30/2020 Telephone [facility] Neurology - [address] [phone] Alta Walter MD [address] [place] [address] Level 2 [place] [address] Appointment Related Social History Tobacco [...] yet, no message could be left. No [employer] Biosciences[employer] access. documented in this encounter Plan of Treatment Upcoming Encounters Date Type Department Care Team (Late st Contact Info) Description 02/13/2024 13:00 EST Office Visit [facility] Neurology - S [address] [address] Alta Walter MD [address] [employer], Level [address] [place] [address] documented as of this encounter Visit Diagnoses Not on filedocumented in this encounter Care Teams Criminal Judge Relationship Specialty Start Date End Date Yumiko Tavarez MD [address] [place] [address] PCP - General 12/29/19 documented as of this encounter
--- OUTSIDE RECORDS SUMMARY | 2024-01-28 12:23 | XMS_ITS | Encounter Summary ---
Author Organization [facility] Address [address] [place] [address] Care Team Providers Care Visual Merchandising Coordinator Name Role Phone Yumiko Tavarez MD Primary Care Provider [phone] Reason for Visit * Reason Onset Date Comments Other 04/06/2020 Encounter Details Date Type Department Care Team (Late st Contact Info) Description 04/06/[address] [facility] Neurology - S [address] [phone] Alta Walter MD [address] [place] [address] Level 2 [place] [address] Other Social History Tobacco Use [...] Refills Last Filled Start Date End Date iodine strong (LUGOLS) 5 % solution Take 2 mls (100 mg iodine) orally 1 hour prior to exam. 1 Bottle 04/07/2020 05/26/2020 documented in this encounter Miscellaneous Notes * Telephone Encounter - Kane Parker RN - 04/07/2020 0989 EST Spoke with pt's pharmacy- they report that they can get the Lugol's solution and have already ordered it for the pt. Informed pt that Dr Thakkar ordered the Valentin scan and the lugol's solution was sent to [facility]-they will call her when ready. Informed her that she would receive a call from [facility] radiology to schedule the scan. She reports [...] she is still recommending it. Preferred pharmacy [facility] in [place], [place] * Telephone Encounter - Kena Marshall [...] [facility] Neurology - S [address] [address] Alta Walter MD [address] [place] [address] 2 [place] [address] documented as of this encounter Visit Diagnoses Diagnosis Parkinsonism, unspecified Parkinsonism type (HCC-CMS)- Primary documented in this encounter Care Teams Visual Merchandising Coordinator Relationship Specialty Start Date End Date Yumiko Tavarez MD [address] [place] [address] PCP - General 12/29/19 documented as of this encounter
--- OUTSIDE RECORDS SUMMARY | 2024-01-28 12:23 | XMS_ITS | Encounter Summary ---
Author Organization [facility] Address [address] [place] [address] Care Team Providers Care Franchise Development Manager Name Role Phone Yumiko Tavarez MD Primary Care Provider [phone] Reason for Visit * Reason Onset Date Comments Appointment Related 05/31/2020 Encounter Details Date Type Department Care Team (Late st Contact Info) Description 05/31/2020 Telephone [facility] Neurology - S [address] [phone] Alta Walter MD [address] [place] [address] Level 2 [place] [phone] Appointment Related Social History Tobacco Use Types [...] FUR/televdeo Meeting ID: [id number] Password: [id number] documented in this encounter Plan of Treatment Upcoming Encounters Date Type Department Care Team (Late st Contact Info) Description 02/13/2024 13:00 EST Office Visit [facility] Neurology - S [address] [phone] Alta Walter MD [address] [place] [address], Level 2 [place] [phone] documented as of this encounter Visit Diagnoses Not on filedocumented in this encounter Care Teams Franchise Development Manager Relationship Specialty Start Date End Date Yumiko Tavarez MD [address] [place] [address] PCP - General 12/29/19 documented as of this encounter
--- OUTSIDE RECORDS SUMMARY | 2024-01-28 12:24 | XMS_ITS | Encounter Summary ---
Author Organization [facility] [place] [address] Care Team Providers Care Metal Sprayer Protective Coating Name Role Phone Yumiko Tavarez MD Primary Care Provider [phone] Reason for Visit * Reason Onset Date Comments Medication Refill 01/22/2017 Encounter Details Date Type Department Care Team (Late st Contact Info) Description 01/22/2017 [place] [phone] Razia Mims MD [facility] [place] [address] Social History Tobacco Use Types Packs/Day Years [...] 1:00 PM [place] [phone] Alta Caban APRN [facility] [address] documented as of this encounter Visit Diagnoses Not on filedocumented in this encounter Care Teams Metal Sprayer Protective Coating Relationship Specialty Start Date End Date Yumiko Tavarez MD [address] [place] [address] PCP - General Family Medicine 07/07/16 documented as of this encounter
--- OUTSIDE RECORDS SUMMARY | 2024-01-28 12:24 | XMS_ITS | Encounter Summary ---
Author Organization [facility] [place] [address] Care Team Providers Care Explosive Specialist Name Role Phone Yumiko Tavarez MD Primary Care Provider [phone] Encounter Details Date Type Department Care Team (Latest Contact Info) Description 08/14/2022 11:30 AM EDT Laboratory Appointment Lab [address] [place] [phone] Stage 3 chronic kidney disease, unspecified whether [...] 1:00 PM EST [place] [phone] Alta Caban APRN [facility] [place] [address] documented as of this encounter Procedures Procedure Name Priority Date/Time Associated Diagnosis Comments URINALYSIS DIPSTICK Routine 08/14/2022 1 2:24 PM EDT Stage 3 chronic kidney disease, unspecified whether stage 3a or 3b CKD PTH Routine 08/14/2022 11:52 AM EDT Stage 3 chronic kidney disease, unspecified whether stage 3a or 3b CKD HEMOGRAM Routine 08/14/2022 11:52 AM EDT Stage 3 chronic kidney disease, unspecified whether stage 3a or 3b CKD DIFFERENTIAL, AUTOMATED Routine 08/14/2022 11:52 AM EDT Stage 3 chronic kidney disease, unspecified whether stage 3a or 3b CKD VITAMIN D, 25-HYDROXY Routine 08/14/2022 11:52 AM EDT Stage 3 chronic kidney disease, unspecified whether stage 3a or 3b CKD CBC (WITH DIFF) Routine 08/14/2022 11:52 AM EDT Stage 3 chronic kidney disease, unspecified whether stage 3a or 3b CKD PHOSPHORUS Routine 08/14/2022 11:52 AM EDT Stage 3 chronic kidney disease, unspecified whether stage 3a or 3b CKD CALCIUM Routine 08/14/2022 11:52 AM EDT Stage 3 chronic kidney disease, unspecified whether stage 3a or 3b CKD BASIC METABOLIC PANEL Routine 08/14/2022 11:52 AM EDT Stage 3 chronic kidney disease, unspecified whether stage 3a or 3b CKD documented in this encounter Results * (ABNORMAL) Urinalysis without microscopic (08/14/2022 12:24 PM EDT) Pathologist [facility] Glucose, Urine Dipstick Negative Negative mg/dL [facility] Protein, Urine Dipstick Negative Negative mg/dL [facility] Bilirubin, Urine Dipstick Negative Negative mg/dL [facility] Comment: Clinical correlation required for positive Urine Bilirubin results as false positive may occur with some drugs and drug related products. If a false positive is suspected a serum total bilirubin should be considered if clinically indicated. Urobilinogen, Urine Dipstick Normal Normal mg/dL [facility] pH, Urn (dipstick) 6.0 5.0 - 8.0 [facility] Blood, Urine Dipstick Small(A) Negative mg/dL [facility] Ketone, Urine Dipstick Negative Negative mg/dL [facility] Nitrite, Urine Dipstick Negative Negative [facility] Leukocytes, Urine Dipstick Negative Negative [facility] Appearance, Urine Dipstick Clear Clear [facility] Specific [place] Urine Automated 1.010 1.005 - 1.030 [facility] Color, Urine Dipstick Yellow Yellow [facility] Urine 08/14/2022 12:2 4 PM EDT 08/14/2022 12:33 PM EDT Narrative Resulting Agency Comment Spec In Lab Efren Suh MD URINE ORDERABLES [facility] [place] [address] * Differential, Automated (08/14/2022 11:52 AM EDT) Neutrophil % 44.1 % [facility] Neutrophil Absolute 2.42 1.70 - 6.10 x10(3)/[facility] Lymph % 46.7 % [facility] Lymphocytes Abs 2.6 0.9 - 3.2 x10(3)/[facility] Monocyte % 7.7 % [facility] Monocyte Abs 0.4 0.3 - 0.9 x10(3)/[facility] Eos % 0.9 % [facility] Eosinophils Abs 0.0 0.0 - 0.4 x10(3)/[facility] Basophil % 0.4 % [facility] Baso Absolute 0.0 0.0 - 0.1 x10(3)/[facility] Immature Gran % 0.20 % [facility] Comment: Immature granulocytes(IG's)percentage and absolute count will include metamyelocytes, myelocytes, and promyelocytes. Blood smears from CBCs yielding IG's will be scanned manually for concordance. If this scan disagrees with the automated IG or if promyelocytes are noted, a manual differential will be performed. Immature Gran Absolute 0.01 0.00 - 0.04 x10(3)/[facility] Blood 08/14/2022 11:5 2 AM EDT 08/14/2022 11:59 AM EDT Narrative Resulting Agency Comment Spec In Lab Neeraj Vasquez MD HEMATOLOGY NEELIMA PEDRAZA [facility] [place] [address] * (ABNORMAL) Hemogram (08/14/2022 11:52 AM EDT) White Blood Cell 5.5 4.0 - 9.5 x10(3)/mc L [facility] Red Blood Cell 3.82(L) 4.00 - 5.21 x10(6)/mc L [facility] Hemoglobin 12.4 11.7 - 15.5 g/dL [facility] Hematocrit 37.9 35.7 - 45.8 % [facility] Mean Cell Volume 99.2(H) 82.6 - 94.4 fL [facility] Mean Cell Hemoglobin 32.5(H) 27.1 - 32.0 pg [facility] Mean Cell Hemoglobin Concentration 32.7 31.7 - 35.0 g/dL [facility] Platelet 199 145 - 357 x10(3)/mc L [facility] RDW Standard Deviation 44.5 37.0 - 46.0 fL [facility] RDW coefficient of variation 12.3 11.5 - 14.1 % [facility] Mean Platelet Volume 10.9 7.6 - 12.9 fL [facility] NRBC% auto 0.0 % [facility] NRBC Absolute 0.000 0.000 - 0.000 x10(3)/mc L [facility] Blood 08/14/2022 11:5 2 AM EDT 08/14/2022 11:59 AM EDT Narrative Resulting Agency Comment Spec In Lab Neeraj Vasquez MD HEMATOLOGY NEELIMA PEDRAZA Performing Organization Address City/[facility]/ZIP Co de Phone Number [facility] [place] [address] * Vitamin D, 25-Hydroxy (08/14/2022 11:52 AM EDT) Vitamin D Total 25 OH 40 21 - 100 ng/mL [facility] Vit D Interp Sufficient [facility] Blood 08/14/2022 11:5 2 AM EDT 08/14/2022 11:59 AM EDT Narrative Resulting Agency Comment Spec In Lab Efren Suh MD CHEMISTRY ORDERABLES [facility] [place] [address] * (ABNORMAL) Basic Metabolic Panel (non-fasting) (08/14/2022 11:52 AM EDT) Glucose 82 65 - 199 mg/dL [facility] Comment:Diabetes: >=200 mg/d L plus symptoms Blood Urea Nitrogen 13 8 - 18 mg/dL [facility] Creatinine 1.14 0.70 - 1.20 mg/dL [facility] Sodium 141 135 - 145 mmol/L [facility] Potassium 4.5 3.5 - 5.0 mmol/L [facility] Comment: Please note: ??Patients with WBC >100,000 may have falsely elevated Potassium levels. ??For accurate Potassium quantification in these patients send serum separator tube (gold top) for subsequent determinations. ??Contact the Clinical Chemistry Laboratory if there are any questions. Chloride 103 98 - 107 mmol/L [facility] Carbon Dioxide 28 22 - 31 mmol/L [facility] Anion Gap 10 5 - 15 mmol/L [facility] Calcium 9.6 8.5 - 10.5 mg/dL [facility] Est Glomerular Filtration Rate 55(L) >=60 mL/min/1. 73 m?? [facility] Comment: This patient's estimated GFR was [...] In Lab Efren Suh MD CHEMISTRY ORDERABLES [facility] [place] [address] * (ABNORMAL) PTH (08/14/2022 11:52 AM EDT) Parathyroid Hormone 76(H) 15 - 65 pg/mL [facility] Blood 08/14/2022 11:5 2 AM EDT 08/14/2022 11:59 AM EDT Narrative Resulting Agency Comment Spec In Lab Efren Suh MD CHEMISTRY ORDERABLES Performing Organization Address City/[facility]/ZIP Co de Phone Number [facility] [place] [address] * Calcium (08/14/2022 11:52 AM EDT) Calcium 9.6 8.5 - 10.5 mg/dL [facility] Blood 08/14/2022 11:5 2 AM EDT 08/14/2022 11:59 AM EDT Narrative Resulting Agency Comment Spec In Lab Efren Suh MD CHEMISTRY ORDERABLES Performing Organization Address City/[facility]/ZIP Co de Phone Number [facility] [place] [address] * Phosphorus (08/14/2022 11:52 AM EDT) Phosphorus 4.2 2.5 - 4.5 mg/dL [facility] Blood 08/14/2022 11:5 2 AM EDT 08/14/2022 11:59 AM EDT Narrative Resulting Agency Comment Spec In Lab Efren Suh MD CHEMISTRY ORDERABLES Performing Organization Address City/[facility]/ZIP Co de Phone Number [facility] [place] [address] documented in this encounter Visit Diagnoses Diagnosis Stage 3 chronic kidney disease, unspecified whether stage 3a or 3b CKD documented in this encounter Care Teams Explosive Specialist Relationship Specialty Start Date End Date Yumiko Tavarez MD [address] [place] [address] PCP - General Family Medicine 07/07/16 documented as of this encounter
--- OUTSIDE RECORDS SUMMARY | 2024-01-28 12:24 | XMS_ITS | Encounter Summary ---
[place] [address] Care Team Providers Care Balancer Name Role Phone Yumiko Tavarez MD Primary Care Provider [phone] Reason for Visit * Diagnostic Test (Routine) - Closed Specialty Diagnoses / Procedures Referred By Contac t Referred To Contact Radiology Diagnoses Tremors of nervous system Procedures NM IRMA Scan Razia Mims MD [facility] [place] [address] [place] [address] Referral ID Status Reason Start Date Expiration Date V isits Requested Visits Authorized [id number] Closed Specialty Service Requested 12/18/2016 12/18/2017 3 3 Encounter Details Date Type Department Care Team (Latest Contact Info) Description 01/10/2017 2:32 PM EST - 01/10/2017 11:59 PM [facility] Hospital Encounter [place] [address] Razia Mims MD [facility] [place] [address] Discharge Disposition: Home Social History Tobacco Use [...] times daily. 90 tablet 3 12/18/2016 01/22/2017 cholecalciferol, Vitamin D3, 50,000 unit Capsule Take 50,000 Units by mouth once a week. 01/03/2024 documented as of this encounter Plan of Treatment Upcoming Encounters Date Type Department Care Team (Late st Contact Info) Description 02/04/2024 1:00 PM EST Office [place] [address] Alta Caban APRN [facility] [place] [address] documented as of this encounter Procedures Procedure [...] findings, Oscar Le at 01/10/2017 4:30 PM Rzaia Mims MD [facility] [place] ORDERABLES documented in this encounter Visit Diagnoses Not on filedocumented in this encounter Care Teams Balancer Relationship Specialty Start Date End Date Yumiko Tavarez MD [address] [place] [address] PCP - General Family Medicine 07/07/16 documented as of this encounter
--- OUTSIDE RECORDS SUMMARY | 2024-01-28 12:24 | XMS_ITS | Encounter Summary ---
[place] [address] Care Team Providers Care Wastewater Treatment Plant Supervisor Name Role Phone Yumiko Tavarez MD Primary Care Provider [phone] Encounter Details Date Type Department Care Team (Late Contact Info) Description 11/23/2022 Orders Only [place] [address] [facility] [place] [address] Stage 3a chronic kidney disease Social History [...] 1:00 PM EST [place] [address] [facility] [place] [address] documented as of this encounter Results * US Retroperitoneal Complete (01/02/2023 2:06 PM EDT) Anatomical Region Laterality Modality Abdomen Ultrasound 01/02/2023 2:02 PM EDT Impressions 01/02/2023 4:04 PM EDT 1. RIGHT kidney 8 cm. LEFT kidney, 8.6 cm. No hydronephrosis. Normal-appearing RIGHT and LEFT kidneys. No renal cysts stones or masses. Partially distended urinary bladder limited views. Electronically signed by: Rosalinda Gonzalez MD, [facility] ([phone]), at 01/02/2023 3:57 PM Thank you for letting us participate in the care of this patient. If you are a health care provider and have any questions regarding this report, please contact the number above. For patients who have questions, please contact the health health care administrator that requested your imaging first. ?Rosalinda Gonzalez, Staff Physician Electronically Signed Final Report ?? 01/02/2023 04:03 pm Narrative 01/02/2023 4:04 PM EDT Renal ? (Signed Final 01/02/2023 04:03 pm) PATIENT INFO: ID #: ? [id number] ?: ??[birth year] (57 yrs)(F) Name: ? CYDNEY S ? Visit Date: 01/02/2023 02:02 pm ? LARRY PERFORMED BY: Attending: ?Rosalinda Gonzalez MD Performed By: ? Jany Avila RDMS Referred By: ?LIGIA LOPEZ Location: ? [facility] SERVICE(S) PROVIDED: URETRO - Retroperitoneal Complete - [id number] ? [id number] INDICATIONS: 57 y.o. female CKD3, r/o anatomic [...] 01/02/2023 04:03 pm) PATIENT INFO: ID #: [id number] : [birth year] (57 yrs)(F) Name: CYDNEY Fuentes Visit Date: 01/02/2023 02:02 pm CHAMBERLAIN PERFORMED BY: Attending: Rosalinda Gonzalez MD Performed By: Jany Avila RDMS Referred By: LIGIA LOPEZ Location: [facility] SERVICE(S) PROVIDED: URETRO - Retroperitoneal Complete - [id number] INDICATIONS: 57 y.o. female CKD3, r/o anatomic [...] who have questions, please contact the health health care administrator that requested your imaging first. Rosalinda Gonzalez, Staff Physician Electronically Signed Final Report 01/02/2023 04:03 pm Ligia Lopez APRN IMG US GEN ORDERABLE S documented in this encounter Visit Diagnoses Diagnosis Stage 3a chronic kidney disease Stage 3a chronic kidney disease documented in this encounter Care Teams Wastewater Treatment Plant Supervisor Relationship Specialty Start Date End Date Yumiko Tavarez MD [address] [place] [address] PCP - General Family Medicine 07/07/16 documented as of this encounter
--- OUTSIDE RECORDS SUMMARY | 2024-01-28 12:24 | XMS_ITS | Encounter Summary ---
Author Organization [place] [address] Care Team Providers Care Regulation Supervisor Name Role Phone Yumiko Tavarez MD Primary Care Provider [phone] Encounter Details Date Type Department Care Team (Late st Contact Info) Description 03/26/2019 [place] [address] Razia Mims MD [facility] [place] [address] Social History Tobacco Use Types Packs/Day Years [...] 1:00 PM EST [place] [address] Alta Caban APRN [facility] [place] [address] documented as of this encounter Visit Diagnoses Not on filedocumented in this encounter Care Teams Regulation Supervisor Relationship Specialty Start Date End Date Yumiko Tavarez MD [address] [place] [address] PCP - General Family Medicine 07/07/16 documented as of this encounter
--- OUTSIDE RECORDS SUMMARY | 2024-01-28 12:24 | XMS_ITS | Encounter Summary ---
Author Organization [facility] [place] [address] Care Team Providers Care Cottage Attendant Name Role Phone Yumiko Tavarez MD Primary Care Provider [phone] Encounter Details Date Type Department Care Team (Latest Contact Info) Description 01/02/2023 1:30 PM EDT - 01/02/2023 11:59 PM EDT Hospital [place] [address] [place] [address] Stage 3a chronic kidney disease Discharge Disposition: [...] Sig Dispensed Refills Start Date End Date acetaminophen (Tylenol) 500 mg tablet Take 1,000 mg by mouth every 6 hours as needed for Pain. pregabalin (LYRICA) 200 mg Capsule Take by mouth daily. 150 mg in the morning and 100mg in the evening naloxone (Narcan) 4 mg/actuation [place], Non-Aerosol 1 spray by Nasal route as [...] every 6 hours as needed for Pain. clonazePAM (KlonoPIN) 1 mg tablet Take by mouth. 1.5 tabs in the morning and 1 tab in afternoon, and 1.5 tabs at night 06/22/2022 01/03/2024 cholecalciferol, Vitamin D3, 50,000 unit Capsule Take 50,000 Units by mouth once a week. 01/03/2024 documented as of this encounter Plan of Treatment Upcoming Encounters Date Type Department Care Team (Late st Contact Info) Description 02/04/2024 1:00 PM EST [place] [address] Alta Caban [employer]ES[employer]CE TRAINER [facility] [place] [address] documented as of this encounter Procedures Procedure [...] views. Electronically signed by: Rosalinda Gonzalez MD, [facility] ([phone]), at 01/02/2023 3:57 PM Thank you for letting us participate in the care of this patient. If you are a health care provider and have any questions regarding this report, please contact the number above. For patients who have questions, please contact the health medicare sales executive that requested your imaging first. ?Rosalinda Gonzalez, Staff Physician Electronically Signed Final Report ?? 01/02/2023 04:03 pm Narrative 01/02/2023 4:04 PM EDT Renal ? (Signed Final 01/02/2023 04:03 pm) PATIENT INFO: ID #: ? [id number] ?: ??[birth year] (57 yrs)(F) Name: ? CYDNEY S ? Visit Date: 01/02/2023 02:02 pm ? LARRY PERFORMED BY: Attending: ?Lisa PETTY, Rosalinda Beth Performed By: ? Jany Avila RDMS Referred By: ?LIGIA LOPEZ Location: ? [facility] SERVICE(S) PROVIDED: URETRO - Retroperitoneal Complete - [id number] ? [id number] INDICATIONS: 57 y.o. female CKD3, r/o anatomic [...] 01/02/2023 04:03 pm) PATIENT INFO: ID #: [id number] : 61 (57 yrs)(F) Name: CYDNEY Fuentes Visit Date: 01/02/2023 02:02 pm LARRY PERFORMED BY: Attending: Rosalinda Gonzalez MD Performed By: Jany Avila RDMS Referred By: LIGIA LOPEZ Location: [facility] SERVICE(S) PROVIDED: URETRO - Retroperitoneal Complete - [id number] INDICATIONS: 57 y.o. female CKD3, r/o anatomic [...] who have questions, please contact the health medicare sales executive that requested your imaging first. Rosalinda Gonzalez, Staff Physician Electronically Signed Final Report 01/02/2023 04:03 pm Ligia Lopez APRN IMG US GEN ORDERABLE S documented in this encounter Visit Diagnoses Diagnosis Stage 3a chronic kidney disease documented in this encounter Care Teams Cottage Attendant Relationship Specialty Start Date End Date Yumiko Tavarez MD [address] [place] [address] PCP - General Family Medicine 07/07/16 documented as of this encounter
--- OUTSIDE RECORDS SUMMARY | 2024-01-28 12:24 | XMS_ITS | Encounter Summary ---
[place] [address] Care Team Providers Care Operations Executive Name Role Phone Ymuiko Tavarez MD Primary Care Provider [phone] Encounter Details Date Type Department Care Team (Late st Contact Info) Description 08/06/2017 4:00 PM EDT Office [place] [address] Razia Mims MD [facility] [place] [address] Primary Parkinsonism Social History Tobacco Use Types [...] Mims MD - 08/06/2017 4:00 PM EDT [facility] Movement Disorders Follow Up Patient Evaluation Date of service 08/06/2017 Referring provider Yumiko Tavarez MD [address] [place] [address] Cc: tremor History of present illness Miguelina [...] magnesium 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 Stretching makes her feel better. 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 Remote history of cocaine use Review of [...] or other genetic testing Razia Mims MD [facility] Neurology-Movement Disorders documented in this encounter Plan of Treatment Upcoming Encounters Date Type Department Care Team (Late st Contact Info) Description 02/04/2024 1:00 PM EST Office [place] [address] Alta Caban APRN [facility] [place] [address] documented as of this encounter Visit Diagnoses Diagnosis Primary parkinsonism Paralysis agitans documented in this encounter Care Teams Operations Executive Relationship Specialty Start Date End Date Yumiko Tavarez MD [address] [place] [address] PCP - General Family Medicine 07/07/16 documented as of this encounter
--- OUTSIDE RECORDS SUMMARY | 2024-01-28 12:24 | XMS_ITS | Encounter Summary ---
[place] [address] Care Team Providers Care Rehabilitation Services Coordinator Name Role Phone Yumiko Tavarez MD Primary Care Provider [phone] Reason for Visit * Diagnostic Test (Routine) - Closed Specialty Diagnoses / Procedures Referred By Contac t Referred To Contact Radiology Diagnoses Tremors of nervous system Procedures NM IRMA Scan Razia Mims MD [facility] [place] [address] [place] [address] Referral ID Status Reason Start Date Expiration Date V isits Requested Visits Authorized [id number] Closed Specialty Service Requested 12/18/2016 12/18/2017 3 3 Encounter Details Date Type Department Care Team (Latest Contact Info) Description 01/10/2017 9:57 AM EST - 01/10/2017 2:31 PM [facility] Hospital Encounter [place] [address] Razia Mims MD [facility] [place] [address] Discharge Disposition: Home Social History Tobacco Use [...] 1:00 PM EST Office [place] [address] [address]ta Caban [address]N [facility] [place] [address] documented as of this encounter Procedures Procedure [...] mCi documented in this encounter Care Teams Rehabilitation Services Coordinator Relationship Specialty Start Date End Date Yumiko Tavarez MD [address] [place] [address] PCP - General Family Medicine 07/07/16 documented as of this encounter
--- OUTSIDE RECORDS SUMMARY | 2024-01-28 12:24 | XMS_ITS | Encounter Summary ---
Author Organization [facility] [place] [address] Care Team Providers Care Cordwainer Name Role Phone Yumiko Tavarez MD Primary Care Provider [phone] Encounter Details Date Type Department Care Team (Latest Contact Info) Description 05/08/2023 2:30 PM EST Office Visit [place] [address] Nenita Grimes APRN [facility] [place] [address] Stage 3b chronic kidney disease; Hyperparathyroidism Social [...] this encounter Progress Notes * Nenita Grimes APRN - 05/08/2023 2:30 PM EST Images from the original note were not included. [facility] NEPHROLOGY/HYPERTENSION CLINIC FOLLOW-UP NOTE [id number] ID: 58 y.o.year-old female seen for follow [...] in the evening naloxone (Narcan) 4 mg/actuation [place], Non-Aerosol 1 spray by Nasal route as [...] and is currently receiving care from a [facility] urology however she is unable to clearly [...] Negative mcL Appearance UA Clear Clear Spec [place] UA 1.016 1.005 - 1.030 Color UA [...] It is unclear why she is seeing [facility] urology, and I will need to contact [...] and coordination of care. Nenita Grimes APRN [address] 2nd floor, Accounting Auditor [address] [place], [place] [id number] CC: Yumiko Tavarez MD [email or web address] documented in this encounter Plan of Treatment Upcoming Encounters Date Type Department Care Team (Late st Contact Info) Description 02/04/2024 1:00 PM EST [place] [address] Alta Caban SNAPPER ON [facility] [place] [address] Scheduled Orders Name Type Priority Associated Diagnoses [...] 2:02 PM EST) Creatinine, Urine 128 mg/dL [facility] Protein, Urine <6 0 - 12 mg/dL [facility] Protein / Creatinine Ratio, Urine <0.1 ratio [facility] Urine 05/08/2023 2:02 PM EST 05/08/2023 2:17 PM EST Narrative Resulting Agency Comment Spec In Lab Nenita Grimes APRN URINE ORD ERABLES [facility] [place] [address] * U Albumin/Cre Ratio (05/08/2023 2:02 PM EST) Albumin / Creatinin Ratio, Urine Not Calculated 0 - 29 mcg/mg Cr [facility] Comment: Reference Ranges: <30 mcg/mg: Normal [...] 2, 357? 362 Albumin, Urine <3.0 mg/L [facility] Creatinine, Urine 128 mg/dL [facility] Urine 05/08/2023 2:02 PM EST 05/08/2023 2:17 PM EST Narrative Resulting Agency Comment Spec In Lab Nenita Grimes APRN URINE ORD ERABLES [facility] [place] [address] * (ABNORMAL) _Urinalysis with microscopic (05/08/2023 2:02 PM EST) Glucose, Urine Dipstick Negative Negative mg/dL [facility] Protein, Urine Dipstick Negative Negative mg/dL [facility] Bilirubin, Urine Dipstick Negative Negative mg/dL [facility] Comment: Clinical correlation required for positive Urine Bilirubin results as false positive may occur with some drugs and drug related products. If a false positive is suspected a serum total bilirubin should be considered if clinically indicated. Urobilinogen, Urine Dipstick Normal Normal mg/dL [facility] pH, Urn (dipstick) 5.5 5.0 - 8.0 [facility] Blood, Urine Dipstick Small(A) Negative mg/dL [facility] Ketone, Urine Dipstick Negative Negative mg/dL [facility] Nitrite, Urine Dipstick Negative Negative [facility] Leukocytes, Urine Dipstick Negative Negative mcL [facility] Appearance, Urine Dipstick Clear Clear [facility] Specific [place] Urine Automated 1.016 1.005 - 1.030 [facility] Color, Urine Dipstick Yellow Yellow [facility] RBC, Urine 2 0 - 4 /HPF [facility] WBC, Urine 1 0 - 5 /HPF [facility] Squamous Epithelial Cells Raw Data, Urine 1 <=4 /HPF [facility] Urine 05/08/2023 2:02 PM EST 05/08/2023 2:17 PM EST Narrative Resulting Agency Comment Spec In Lab Nenita W Cornelio SNAPPER ON URINE ORD ERABLES Performing Organization Address City/State/[facility] Co de Phone Number [facility] [place] [address] documented in this encounter Visit Diagnoses Diagnosis Stage 3b chronic kidney disease Hyperparathyroidism Hyperparathyroidism, unspecified documented in this encounter Care Teams Cordwainer Relationship Specialty Start Date End Date Yumiko Tavarez MD [address] [place] [address] PCP - General Family Medicine 07/07/16 documented as of this encounter
--- OUTSIDE RECORDS SUMMARY | 2024-01-28 12:24 | XMS_ITS | Encounter Summary ---
Author Organization [facility] [place] [address] Care Team Providers Care Xm1 Tank Driver Name Role Phone Yumiko Tavarez MD Primary Care Provider [phone] Reason for Visit * Reason Onset Date Comments Prior Authorization 01/22/2019 XENAZINE 12. 5 MG #60 APPROVED 01/29/19-05/01/19 Encounter Details Date Type Department Care Team (Late st Contact Info) Description 01/22/2019 [place] [address] Razia Mims MD [facility] [place] [address] Prior Authorization (XENAZINE 12.5 MG #60 APPROVED [...] included. FORM FILLED OUT AND FAXED TO [facility]. [phone] ~abnormal involuntary movements. When I initially saw [...] Red - 01/22/2019 4:56 PM EST [facility] [place] Call Caller: Miguelina If not Pt / Relation to pt: Call back number: [phone] Extension for call back number if appropriate: Medication requiring PA: Tetrabenazine [facility] Benefits/Coverage Company: [facility] Benefits/Coverage ID #: [id number] Pharmacy Benefits/Coverage Company Pharmacy used by patient: [facility] location: [facility] BIN#: PCN# : Disposition of Call: documented in this encounter Plan of Treatment Upcoming Encounters Date Type Department Care Team (Late st Contact Info) Description 02/04/2024 1:00 PM EST [place] [address] Alta Caban APRN [facility] [place] [place] [address] documented as of this encounter Visit Diagnoses Not on filedocumented in this encounter Care Teams Xm1 Tank Driver Relationship Specialty Start Date End Date Yuimko Tavarez MD [address] [place] [address] PCP - General Family Medicine 07/07/16 documented as of this encounter
--- OUTSIDE RECORDS SUMMARY | 2024-01-28 12:24 | XMS_ITS | Encounter Summary ---
Author Organization [facility] Address [facility] [place] [address] Care Team Providers Care Assembler Tubing Name Role Phone Yumiko Tavarez MD Primary Care Provider [phone] Reason for Referral * Speech Therapy (Routine) - Specialty Diagnoses / Procedures Referred By Contpayam t Referred To Contact Neurology Diagnoses Primary parkinsonism Razia Mims MD [facility] [place] [address] Referral ID Status Reason Start Date Expiration Date V isits Requested Visits Authorized [id number] Evaluate and Treat 01/20/2020 07/18/2020 12 12 Encounter Details Date Type Department Care Team (Late st Contact Info) Description 01/20/2020 10:00 AM EST [place] [address] Razia Mims MD [facility] [place] [place] [address] Kartik Delgadillo APRN [facility] [place] [address] Primary Parkinsonism; Chorea Social History Tobacco Use [...] Mims MD - 01/20/2020 10:00 AM EST [facility] Movement Disorders Follow Up Patient Evaluation Date of service 01/20/2020 Referring provider Yumiko Tavarez MD [address] [place] [address] Cc: tremor History of present illness Miguelina [...] , Rfl: ??? naloxone (NARCAN) 4 mg/actuation [place], Non-Aerosol, 1 spray by Nasal route as [...] tablet, Rfl: 11 Social History: Lives in [facility], she is retired from [employer]. Remote history of cocaine use (2 times [...] may consider a second opinion with Destini Espinozaman Razia Mims MD [facility] Neurology-Movement Disorders documented in this encounter Plan of Treatment Upcoming Encounters Date Type Department Care Team (Late st Contact Info) Description 02/04/2024 1:00 PM EST [place] [address] Alta Caban APRN [facility] [place] [address] Scheduled Referrals Name Type Priority Associated Diagnoses Orde r Schedule Referral to Speech Therapy Outpatient Referral Routine Primary Parkinsonism Ordered: 01/20/2020 documented as of this encounter Visit Diagnoses Diagnosis Primary parkinsonism Paralysis agitans Chorea Other choreas documented in this encounter Care Teams Assembler Tubing Relationship Specialty Start Date End Date Yumiko Tavarez MD [address] [place] [address] PCP - General Family Medicine 07/07/16 documented as of this encounter
--- OUTSIDE RECORDS SUMMARY | 2024-01-28 12:24 | XMS_ITS | Encounter Summary ---
Author Organization [place] [address] Care Team Providers Care Math Professor Name Role Phone Yumiko Tavarez MD Primary Care Provider Encounter Details Date Type Department Care Team (Late st Contact Info) Description 03/04/2020 [place] [address] Razia Aragon MD [facility] [place] [address] Social History Tobacco Use Types Packs/Day Years [...] illegible, Card numbers and information called into [employer] program number * Telephone Encounter - Nishi Gonsalves RN - 03/04/2020 12:37 PM EST form refaxed * Telephone Encounter - Kay Mak - 03/04/2020 11:24 AM EST Call Center / [place] Message - General Issue Call Provider patient sees in Clinic: Jamie Aragon Caller and relationship (if other than patient-full name): Harrison Quiñones patient support program Call back number: [phone] Ok to leave a message: y Reason [...] 1:00 PM [place] [address] Alta Caban APRN [facility] [place] [address] documented as of this encounter Visit Diagnoses Not on filedocumented in this encounter Care Teams Math Professor Relationship Specialty Start Date End Date Yumiko Tavarez MD [address] [place] [address] PCP - General Family Medicine 07/07/16 documented as of this encounter
--- OUTSIDE RECORDS SUMMARY | 2024-01-28 12:24 | XMS_ITS | Encounter Summary ---
Author Organization [facility] Address [facility] [place] [address] Care Team Providers Care Ethnographer Name Role Phone Yumiko Tavarez MD Primary Care Provider [phone] Reason for Visit * Reason Onset Date Comments Other 11/08/2018 Encounter Details Date Type Department Care Team (Late st Contact Info) Description 11/08/2018 [place] [address] Razia Mims MD [facility] DR [place] [address] Other Social History Tobacco Use Types Packs/Day [...] can order it but she lives in [place], [place] so I am wondering if she has a local hospital where she would want us to send the order. Miguelina says she can use [facility]. Patient also says that she [...] list. Prepped EKG order to go to [facility], will forward to physician. * Telephone [...] Solo - 11/08/2018 3:19 PM EDT Clinical Box Stacker Message Caller: Miguelina Call back Number: [phone] Reason for call: patient calling to give [...] 1:00 PM EST [place] [address] Alta Caban APRN [facility] [place] [address] documented as of this encounter Visit Diagnoses Diagnosis Primary parkinsonism Paralysis agitans Tremors of nervous system Abnormal involuntary movements Screening procedure Screening for unspecified condition documented in this encounter Care Teams Ethnographer Relationship Specialty Start Date End Date Yumiko Tavarez MD [address] [place] [address] PCP - General Family Medicine 07/07/16 documented as of this encounter
--- OUTSIDE RECORDS SUMMARY | 2024-01-28 12:24 | XMS_ITS | Encounter Summary ---
Author Organization [facility] [place] [address] Care Team Providers Care Equine Intern Name Role Phone Yumiko Tavarez MD Primary Care Provider [phone] Encounter Details Date Type Department Care Team (Late st Contact Info) Description 01/21/2019 [place]phone [place] [address] Razia Mims MD [facility] [place] [address] Social History Tobacco Use Types Packs/Day Years [...] Bobby - 01/21/2019 11:06 AM EST Clinical Reading Message Caller: Miguelina Call back Number: [phone] Reason for call: EKG Message/information for the [...] 1:00 PM EST Office [place] [address] Alta Caban APRN [facility] [place] [address] documented as of this encounter Visit Diagnoses Not on filedocumented in this encounter Care Teams Equine Intern Relationship Specialty Start Date End Date Yumiko Tavarez MD [address] [place] [address] PCP - General Family Medicine 07/07/16 documented as of this encounter
--- OUTSIDE RECORDS SUMMARY | 2024-01-28 12:24 | XMS_ITS | Encounter Summary ---
[place] [address] Care Team Providers Care Cell Pourer Name Role Phone Yumiko Tavarez MD Primary Care Provider [phone] Encounter Details Date Type Department Care Team [...] 1:00 PM [place] [address] Alta Caban APRN [facility] [place] [address] documented as of this encounter Visit Diagnoses Not on filedocumented in this encounter Care Teams Cell Pourer Relationship Specialty Start Date End Date Yumiko Tavarez MD [address] [place] [address] PCP - General Family Medicine 07/07/16 documented as of this encounter
--- OUTSIDE RECORDS SUMMARY | 2024-01-28 12:24 | XMS_ITS | Encounter Summary ---
[place] [address] Care Team Providers Care Flight Test Shop Mechanic Name Role Phone Yumiko Tavarez MD Primary Care Provider [phone] Encounter Details Date Type Department Care Team (Late st Contact Info) Description 03/11/2018 2:30 PM EST [place] [address] Razia Mims MD [facility] [place] [address] Primary Parkinsonism; Weight gain Social History Tobacco [...] Mims MD - 03/11/2018 2:30 PM EST [facility] Movement Disorders Follow Up Patient Evaluation Date of service 03/11/2018 Referring provider Yumiko Tavarez MD [address] [place] [address] Cc: tremor History of present illness Miguelina [...] , Rfl: ??? naloxone (NARCAN) 4 mg/actuation [place], Non-Aerosol, by Nasal route as needed., Disp: [...] 11 Social History: Lives in [facility], she is retired from [employer]. Remote history of cocaine use Review of [...] - TSH, T4 today Razia Mims MD [facility] Neurology-Movement Disorders documented in this encounter Miscellaneous Notes * Addendum Note - Deysi Belcher - 03/11/2018 2:30 PM ESTAddended by: DEYSI BELCHER on: 03/11/2018 03:26 PM Modules accepted: Orders documented in this encounter Plan of Treatment Upcoming Encounters Date Type Department Care Team (Late st Contact Info) Description 02/04/2024 1:00 PM EST [place] [address] Alta Caban APRN [facility] [place] [address] documented as of this encounter Procedures Procedure Name Priority Date/Time Associated Diagnosis Comments TSH Routine 03/11/2018 3:33 PM EST Weight gain T4, FREE Routine 03/11/2018 3:33 PM EST Weight gain documented in this encounter Results * (ABNORMAL) T4, free (03/11/2018 3:33 PM EST) Free T4 0.92(L) 0.93 - 1.70 ng/dL [facility] Blood specimen (specimen) 03/11/2018 3:33 PM EST 03/11/2018 3:42 PM EST Narrative Resulting Agency Comment Spec In Lab Razia Mims MD CHEMISTRY ORDERABL ES [facility] [place] [address] * TSH (03/11/2018 3:33 PM EST) Thyroid Stimulating Hormone 0.81 0.27 - 4.20 mlU/ML [facility] Blood specimen (specimen) 03/11/2018 3:33 PM EST 03/11/2018 3:42 PM EST Narrative Resulting Agency Comment Spec In Lab Razia Mims MD CHEMISTRY ORDERABL ES [facility] [place] [address] documented in this encounter Visit Diagnoses Diagnosis Primary parkinsonism Paralysis agitans Weight gain Abnormal weight gain documented in this encounter Care Teams Flight Test Shop Mechanic Relationship Specialty Start Date End Date Yumiko Tavarez MD [address] [place] [address] PCP - General Family Medicine 07/07/16 documented as of this encounter
--- OUTSIDE RECORDS SUMMARY | 2024-01-28 12:24 | XMS_ITS | Encounter Summary ---
[place] [address] Care Team Providers Care Data Entry Associate Name Role Phone Yumiko Tavarez MD Primary Care Provider [phone] Encounter Details Date Type Department Care Team (Late st Contact Info) Description 07/10/2018 2:00 PM EDT Office [place] [address] Razia Mims MD [facility] [place] [address] Primary Parkinsonism; Chorea Social History Tobacco Use [...] Mims MD - 07/10/2018 2:00 PM EDT [facility] Movement Disorders Follow Up Patient Evaluation Date of service 07/10/2018 Referring provider Yumiko Tavarez MD [address] [place] [address] Cc: tremor History of present illness Miguelina [...] , Rfl: ??? naloxone (NARCAN) 4 mg/actuation [place], Non-Aerosol, by Nasal route as needed., Disp: [...] Heartburn.,Disp: , Rfl: Social History: Lives in [facility], she is retired from [employer]. Remote history of cocaine use Review of [...] or other genetic testing Razia Mims MD [facility] Neurology-Movement Disorders documented in this encounter Plan of Treatment Upcoming Encounters Date Type Department Care Team (Late st Contact Info) Description 02/04/2024 1:00 PM EST Office [place] [address] Alta Caban APRN [facility] [place] [address] documented as of this encounter Visit Diagnoses Diagnosis Primary parkinsonism Paralysis agitans Chorea Other choreas documented in this encounter Care Teams Data Entry Associate Relationship Specialty Start Date End Date Yumiko Tavarez MD [address] [place] [address] PCP - General Family Medicine 07/07/16 documented as of this encounter
--- OUTSIDE RECORDS SUMMARY | 2024-01-28 12:24 | XMS_ITS | Encounter Summary ---
[place] [address] Care Team Providers Care Supervisor Title Name Role Phone Yumiko Tavarez MD Primary Care Provider [phone] Encounter Details Date Type Department Care Team (Late st Contact Info) Description 02/05/2017 1:00 PM EST Office [place] [address] Razia Mims MD [facility] [place] [address] Primary Parkinsonism Social History Tobacco Use Types [...] Mims MD - 02/05/2017 1:00 PM EST [facility] Movement Disorders Follow Up Patient Evaluation Date of service 02/05/2017 Referring provider Yumiko Tavarez MD [address] [place] [address] Cc: tremor History of present illness Miguelina [...] LAPAROSCOPIC ??? VERTEBROPLASTY Social History: Lives in [facility], she is retired from [employer]. Remote history of cocaine use Family History [...] consideration of ADCY5 testing Razia Mims MD [facility] Neurology-Movement Disorders documented in this encounter Plan of Treatment Upcoming Encounters Date Type Department Care Team (Late st Contact Info) Description 02/04/2024 1:00 PM EST Office [place] [address] Alta Caban APRN [facility] [place] [address] documented as of this encounter Visit Diagnoses Diagnosis Primary parkinsonism Paralysis agitans documented in this encounter Care Teams Supervisor Title Relationship Specialty Start Date End Date Yumiko Tavarez MD [address] [place] [address] PCP - General Family Medicine 07/07/16 documented as of this encounter
--- OUTSIDE RECORDS SUMMARY | 2024-01-28 12:24 | XMS_ITS | Encounter Summary ---
Author Organization [facility] [place] [address] Care Team Providers Care Radio Mechanic Name Role Phone Yumiko Tavarez MD Primary Care Provider [phone] Reason for Visit * Reason Onset Date Comments Other 03/01/2018 Encounter Details Date Type Department Care Team (Late st Contact Info) Description 03/01/2018 [place] [address] Razia Mims MD [facility] [place] [address] Other Social History Tobacco Use Types Packs/Day [...] Wagner - 03/01/2018 8:08 AM EST Clinical Ur Coordinator Message Caller: Patient If not Pt / [...] 1:00 PM EST [place] [address] Alta Caban APRN [facility] [place] [address] documented as of this encounter Visit Diagnoses Not on filedocumented in this encounter Care Teams Radio Mechanic Relationship Specialty Start Date End Date Yumiko Tavarez MD [address] [place] [address] PCP - General Family Medicine 07/07/16 documented as of this encounter
--- OUTSIDE RECORDS SUMMARY | 2024-01-28 12:24 | XMS_ITS | Encounter Summary ---
[place] [address] Care Team Providers Care Brim Shaper Name Role Phone Yumiko Tavarez MD Primary Care Provider [phone] Encounter Details Date Type Department Care Team (Late Contact Info) Description 11/22/2022 Orders Only [place] [address] Ligia Lopez [facility] [place] [address] Stage 3a chronic kidney disease; Hyperparathyroidism Social [...] 1:00 PM EST [place] [address] Alta Caban [facility] [place] [address] documented as of this encounter Results * Vitamin D, 25-Hydroxy (05/08/2023 1:54 PM EST) Vitamin D Total 25 OH 47 21 - 100 ng/mL [facility] Vit D Interp Sufficient [facility] Blood 05/08/2023 1:54 PM EST 05/08/2023 2:00 PM EST Narrative Resulting Agency Comment Spec In Lab Ligia Lopez APRN CHEMISTRY ORDERABLES Performing Organization Address City/[facility]/ZIP Co de Phone Number [facility] [place] [address] * Phosphorus (05/08/2023 1:54 PM EST) Phosphorus 3.6 2.5 - 4.5 mg/dL [facility] Blood 05/08/2023 1:54 PM EST 05/08/2023 2:00 PM EST Narrative Resulting Agency Comment Spec In Lab Ligia Lopez APRN CHEMISTRY ORDERABLES Performing Organization Address [facility] Co de Phone Number [facility] [place] [address] * (ABNORMAL) Uric acid (05/08/2023 1:54 PM EST) Uric Acid 6.8(H) 2.5 - 6.5 mg/dL [facility] Blood 05/08/2023 1:54 PM EST 05/08/2023 2:00 PM EST Narrative Resulting Agency Comment Spec In Lab Ligia Lopez APRN CHEMISTRY ORDERABLES Performing Organization Address City/[facility] Co de Phone Number [facility] [place] [address] * Albumin Level (05/08/2023 1:54 PM EST) Albumin 4.1 3.2 - 5.2 g/dL [facility] Blood 05/08/2023 1:54 PM EST 05/08/2023 2:00 PM EST Narrative Resulting Agency Comment Spec In Lab Ligia Lopez APRN CHEMISTRY ORDERABLES Performing Organization Address City/[facility]/ZIP Co de Phone Number [facility] [place] [address] * (ABNORMAL) PTH (05/08/2023 1:54 PM EST) Parathyroid Hormone 84(H) 15 - 65 pg/mL [facility] Blood 05/08/2023 1:54 PM EST 05/08/2023 2:00 PM EST Narrative Resulting Agency Comment Spec In Lab Ligia Isaac John LERNER CHEMISTRY ORDERABLES [facility] [place] [address] * (ABNORMAL) Basic Metabolic Panel (non-fasting) (05/08/2023 1:54 PM EST) Glucose 89 65 - 199 mg/dL [facility] Comment:Diabetes: >=200 mg/d L plus symptoms Blood Urea Nitrogen 11 8 - 18 mg/dL [facility] Creatinine 1.45(H) 0.70 - 1.20 mg/dL [facility] Sodium 140 135 - 145 mmol/L [facility] Potassium 4.0 3.5 - 5.0 mmol/L [facility] Comment: Please note: ??Patients with WBC >100,000 may have falsely elevated Potassium levels. ??For accurate Potassium quantification in these patients send serum separator tube (gold top) for subsequent determinations. ??Contact the Clinical Chemistry Laboratory if there are any questions. Chloride 102 98 - 107 mmol/L [facility] Carbon Dioxide 29 22 - 31 mmol/L [facility] Anion Gap 9 5 - 15 mmol/L [facility] Calcium 9.2 8.5 - 10.5 mg/dL [facility] Est Glomerular Filtration Rate 41(L) >=60 mL/min/1. 73 m?? [facility] Comment: This patient's estimated GFR [...] Comment Spec In Lab Ligia Poncho Lopez ANALYTICS ARCHITECT CHEMISTRY ORDERABLES Performing Organization Address City/State/[facility] Co de Phone Number [facility] [place] [address] documented in this encounter Visit Diagnoses Diagnosis Stage 3a chronic kidney disease Hyperparathyroidism Hyperparathyroidism, unspecified documented in this encounter Care Teams Brim Shaper Relationship Specialty Start Date End Date Yumiok Tavarez MD [address] [place] [address] PCP - General Family Medicine 07/07/16 documented as of this encounter
--- OUTSIDE RECORDS SUMMARY | 2024-01-28 12:24 | XMS_ITS | Encounter Summary ---
Author Organization [facility] [place] [address] Care Team Providers Care Academic Services Coordinator Name Role Phone Yumiko Tavarez MD Primary Care Provider [phone] Encounter Details Date Type Department Care Team (Late st Contact Info) Description 05/10/2018 [place] [address] Razia Mims MD [facility] [place] [address] Social History Tobacco Use Types Packs/Day Years [...] Salazar - 05/10/2018 9:32 AM EST Clinical [place] Message Caller: Miguelina If not Pt / Relation to pt: Call back Number: [phone] Best time to reach caller: Anytime Reason [...] 1:00 PM [place] [address] Alta Caban APRN [facility] [place] [address] documented as of this encounter Visit Diagnoses Not on filedocumented in this encounter Care Teams Academic Services Coordinator Relationship Specialty Start Date End Date Yumiko Tavarez MD [address] [place] [address] PCP - General Family Medicine 07/07/16 documented as of this encounter
--- OUTSIDE RECORDS SUMMARY | 2024-01-28 12:24 | XMS_ITS | Encounter Summary ---
Author Organization [facility] [place] [address] Care Team Providers Care Suction Operator Name Role Phone Yumiko Tavarez MD Primary Care Provider [phone] Encounter Details Date Type Department Care Team (Latest Contact Info) Description 01/02/2023 1:00 PM EDT Laboratory Appointment Lab [address] [place] [phone] Chronic kidney disease, unspecified CKD stage Social [...] 1:00 PM [place] [phone] Alta Caban APRN [facility] [place] [address] documented as of this encounter Procedures Procedure Name Priority Date/Time Associated Diagnosis Comments HC URINALYSIS ROUTINE Routine 01/02/2023 1:26 PM EDT Chronic kidney disease, unspecified CKD stage PROTEIN/CREATININE RATIO, URINE Routine 01/02/2023 1:26 PM EDT Chronic kidney disease, unspecified CKD stage U ALBUMIN/CRE RATIO Routine 01/02/2023 1 :26 PM EDT Chronic kidney disease, unspecified CKD stage PTH Routine 01/02/2023 1:18 PM EDT Chronic kidney disease, unspecified CKD stage HEMOGRAM Routine 01/02/2023 1:18 PM EDT Chronic kidney disease, unspecified CKD stage DIFFERENTIAL, AUTOMATED Routine 01/02/2023 1:18 PM EDT Chronic kidney disease, unspecified CKD stage VITAMIN D, 25-HYDROXY Routine 01/02/2023 1:18 PM EDT Chronic kidney disease, unspecified CKD stage CBC (WITH DIFF) Routine 01/02/2023 1:18 PM EDT Chronic kidney disease, unspecified CKD stage PHOSPHORUS Routine 01/02/2023 1:18 PM EDT Chronic kidney disease, unspecified CKD stage ALBUMIN LEVEL Routine 01/02/2023 1:18 PM EDT Chronic kidney disease, unspecified CKD stage BASIC METABOLIC PANEL Routine 01/02/2023 1:18 PM EDT Chronic kidney disease, unspecified CKD stage documented in this encounter Results * Protein/Creatinine Ratio, urine (01/02/2023 1:26 PM EDT) Creatinine, Urine 152 mg/dL [facility] Protein, Urine 7 0 - 12 mg/dL [facility] Protein / Creatinine Ratio, Urine <0.1 ratio [facility] Urine 01/02/2023 1:26 PM EDT 01/02/2023 1:38 PM EDT Narrative Resulting Agency Comment Spec In Lab Nenita Grimes UNDERGROUND PRODUCTION FOREPERSON URINE ORD ERABLES [facility] [place] [address] * (ABNORMAL) _Urinalysis with microscopic (01/02/2023 1:26 PM EDT) Glucose, Urine Dipstick Negative Negative mg/dL [facility] Protein, Urine Dipstick Negative Negative mg/dL [facility] Bilirubin, Urine Dipstick Negative Negative mg/dL [facility] Comment: Clinical correlation required for positive Urine Bilirubin results as false positive may occur with some drugs and drug related products. If a false positive is suspected a serum total bilirubin should be considered if clinically indicated. Urobilinogen, Urine Dipstick Normal Normal mg/dL [facility] pH, Urn (dipstick) 5.5 5.0 - 8.0 [facility] Blood, Urine Dipstick Moderate(A) Negative mg/dL [facility] Ketone, Urine Dipstick Negative Negative mg/dL [facility] Nitrite, Urine Dipstick Negative Negative [facility] Leukocytes, Urine Dipstick Negative Negative mcL [facility] Appearance, Urine Dipstick Clear Clear [facility] Specific [place] Urine Automated 1.016 1.005 - 1.030 [facility] Color, Urine Dipstick Yellow Yellow [facility] RBC, Urine 3 0 - 4 /HPF [facility] WBC, Urine 1 0 - 5 /HPF [facility] Bacteria, Urine Occasional(A ) None /HPF [facility] Squamous Epithelial Cells Raw Data, Urine 4 <=4 /HPF [facility] Hyaline Casts, Urine 5(H) 0 - 2 /LPF [facility] Urine 01/02/2023 1:26 PM EDT 01/02/2023 1:38 PM EDT Narrative Resulting Agency Comment Spec In Lab Nenita Grimes UNDERGROUND PRODUCTION FOREPERSON URINE ORD ERABLES [facility] [place] [address] * U Albumin/Cre Ratio (01/02/2023 1:26 PM EDT) Albumin / Creatinin Ratio, Urine 3 0 - 29 mcg/mg Cr [facility] Comment: Reference Ranges: <30 mcg/mg: Normal [...] Supplements (2012) 2, 357? 362 Albumin, Urine 3.9 mg/L [facility] Creatinine, Urine 152 mg/dL [facility] Urine 01/02/2023 1:26 PM EDT 01/02/2023 1:38 PM EDT Narrative Resulting Agency Comment Spec In Lab Nenita Grimes UNDERGROUND PRODUCTION FOREPERSON URINE ORD ERABLES [facility] [place] [address] * Differential, Automated (01/02/2023 1:18 PM EDT) Neutrophil % 56.6 % [facility] Neutrophil Absolute 3.39 1.70 - 6.10 x10(3)/[facility] Lymph % 35.5 % [facility] Lymphocytes Abs 2.1 0.9 - 3.2 x10(3)/[facility] Monocyte % 6.4 % [facility] Monocyte Abs 0.4 0.3 - 0.9 x10(3)/[facility] Eos % 0.8 % [facility] Eosinophils Abs 0.0 0.0 - 0.4 x10(3)/[facility] Basophil % 0.5 % [facility] Baso Absolute 0.0 0.0 - 0.1 x10(3)/[facility] Immature Gran % 0.20 % [facility] Comment: Immature granulocytes(IG's)percentage and absolute count will include metamyelocytes, myelocytes, and promyelocytes. Blood smears from CBCs yielding IG's will be scanned manually for concordance. If this scan disagrees with the automated IG or if promyelocytes are noted, a manual differential will be performed. Immature Gran Absolute 0.01 0.00 - 0.04 x10(3)/mcL [facility] Blood 01/02/2023 1:18 PM EDT 01/02/2023 1:26 PM EDT Narrative Resulting Agency Comment Spec In Lab Nenita Grimes UNDERGROUND PRODUCTION FOREPERSON HEMATOLOG Y ORDERABLES [facility] [place] [address] * (ABNORMAL) Hemogram (01/02/2023 1:18 PM EDT) White Blood Cell 6.0 4.0 - 9.5 x10(3)/mc L [facility] Red Blood Cell 3.96(L) 4.00 - 5.21 x10(6)/mc L [facility] Hemoglobin 12.9 11.7 - 15.5 g/dL [facility] Hematocrit 39.0 35.7 - 45.8 % [facility] Mean Cell Volume 98.5(H) 82.6 - 94.4 fL [facility] Mean Cell Hemoglobin 32.6(H) 27.1 - 32.0 pg [facility] Mean Cell Hemoglobin Concentration 33.1 31.7 - 35.0 g/dL [facility] Platelet 197 145 - 357 x10(3)/mc L [facility] RDW Standard Deviation 44.0 37.0 - 46.0 fL [facility] RDW coefficient of variation 12.2 11.5 - 14.1 % [facility] Mean Platelet Volume 11.1 7.6 - 12.9 fL [facility] NRBC% auto 0.0 % [facility] NRBC Absolute 0.000 0.000 - 0.000 x10(3)/mc L [facility] Blood 01/02/2023 1:18 PM EDT 01/02/2023 1:26 PM EDT Narrative Resulting Agency Comment Spec In Lab Nenita Leach Cornelio ROBERTN HEMATOLOG Y ORDERABLES Performing Organization Address City/[facility]/ZIP Co de Phone Number [facility] [place] [address] * Phosphorus (01/02/2023 1:18 PM EDT) Phosphorus 3.8 2.5 - 4.5 mg/dL [facility] Blood 01/02/2023 1:18 PM EDT 01/02/2023 1:26 PM EDT Narrative Resulting Agency Comment Spec In Lab Nenita Leach Cornelio LERNER CHEMISTRY ORDERABLES Performing Organization Address [facility] Co de Phone Number [facility] [place] [address] * (ABNORMAL) PTH (01/02/2023 1:18 PM EDT) Parathyroid Hormone 118(H) 15 - 65 pg/mL [facility] Blood 01/02/2023 1:18 PM EDT 01/02/2023 1:26 PM EDT Narrative Resulting Agency Comment Spec In Lab Nenita Leach Cornelio LERNER CHEMISTRY ORDERABLES Performing Organization Address [facility] Co de Phone Number [facility] [place] [address] * Vitamin D, 25-Hydroxy (01/02/2023 1:18 PM EDT) Vitamin D Total 25 OH 56 21 - 100 ng/mL [facility] Vit D Interp Sufficient [facility] Blood 01/02/2023 1:18 PM EDT 01/02/2023 1:26 PM EDT Narrative Resulting Agency Comment Spec In Lab Nenita Leach Cornelio LERNER CHEMISTRY ORDERABLES Performing Organization Address City/[facility]/ZIP Co de Phone Number [facility] [place] [address] * (ABNORMAL) Basic Metabolic Panel (non-fasting) (01/02/2023 1:18 PM EDT) Glucose 95 65 - 199 mg/dL [facility] Comment:Diabetes: >=200 mg/d L plus symptoms Blood Urea Nitrogen 13 8 - 18 mg/dL [facility] Creatinine 1.27(H) 0.70 - 1.20 mg/dL [facility] Sodium 141 135 - 145 mmol/L [facility] Potassium 4.4 3.5 - 5.0 mmol/L [facility] Comment: Please note: ??Patients with WBC >100,000 may have falsely elevated Potassium levels. ??For accurate Potassium quantification in these patients send serum separator tube (gold top) for subsequent determinations. ??Contact the Clinical Chemistry Laboratory if there are any questions. Chloride 104 98 - 107 mmol/L [facility] Carbon Dioxide 27 22 - 31 mmol/L [facility] Anion Gap 10 5 - 15 mmol/L [facility] Calcium 9.2 8.5 - 10.5 mg/dL [facility] Est Glomerular Filtration Rate 49(L) >=60 mL/min/1. 73 m?? [facility] Comment: This patient's estimated GFR was [...] Agency Comment Spec In Lab Nenita Grimes UNDERGROUND PRODUCTION FOREPERSON CHEMISTRY ORDERABLES [facility] [place] [address] * Albumin Level (01/02/2023 1:18 PM EDT) Albumin 4.0 3.2 - 5.2 g/dL [facility] Blood 01/02/2023 1:18 PM EDT 01/02/2023 1:26 PM EDT Narrative Resulting Agency Comment Spec In Lab Nenita Leach Cornelio UNDERGROUND [employer]ODUCTION FOREPERSON CHEMISTRY ORDERABLES Performing Organization Address City/State/[facility] Co de Phone Number [facility] [place] [address] documented in this encounter Visit Diagnoses Diagnosis Chronic kidney disease, unspecified CKD stage documented in this encounter Care Teams Suction Operator Relationship Specialty Start Date End Date Yumiko Tavarez MD [address] [place] [address] PCP - General Family Medicine 07/07/16 documented as of this encounter
--- OUTSIDE RECORDS SUMMARY | 2024-01-28 12:24 | XMS_ITS | Encounter Summary ---
Author Organization [facility] [address] Care Team Providers Care Job Development Specialist Name Role Phone Yumiko Tavarez MD Primary Care Provider [phone] Reason for Visit * Reason Onset Date Comments Other 02/04/2019 tetrabenazine Encounter Details Date Type Department Care Team (Late st Contact Info) Description 02/04/2019 [place] [address] [facility] [place] [address] Other (tetrabenazine) Social History Tobacco Use Types [...] EST Insurance information and clinicals faxed to [employer] on 02/13/19 at 2:02 pm to fax number [phone]. * Telephone Encounter - Whit Juares - 02/13/2019 12:05 PM EST Rocío Byrnesrena called to ask that pt's insurance information and the clinicals regarding the medication be faxed to [phone]. * Telephone Encounter - Nishi Gee RN - 02/12/2019 2:22 PM EST Tetrabenazine order form faxed to [employer] on 02/12/19 at 2:23 pm to fax number [phone].Copy sent to medical records to be scanned [...] Red - 02/05/2019 4:36 PM EST Clinical [place] Message Caller: Miguelina Bradford not Pt / Relation to pt: Call back Number: [phone] Reason for call: Pt states that she [...] Red - 02/04/2019 4:09 PM EST Clinical Shuttle Fitting Supervisor Message Caller: Miguelina If not Pt / Relation to pt: Call back Number: [phone] Reason for call: Pts medication Message/information for [...] 1:00 PM EST [place] [address] [facility] [place] [address] documented as of this encounter Visit Diagnoses Not on filedocumented in this encounter Care Teams Job Development Specialist Relationship Specialty Start Date End Date Yumiko Tavarez MD [address] [place] [address] PCP - General Family Medicine 07/07/16 documented as of this encounter
--- OUTSIDE RECORDS SUMMARY | 2024-01-28 12:24 | XMS_ITS | Encounter Summary ---
[facility] [place] [address] Care Team Providers Care Concrete Journeyman Name Role Phone Yumiko Tavarez MD Primary Care Provider [phone] Encounter Details Date Type Department Care Team (Late st Contact Info) Description 10/10/2018 Orders [place] [phone] Razia Mims MD [facility] [place] [address] Social History Tobacco Use Types Packs/Day Years [...] 1:00 PM EST Office [place] [address] Alta Caban APRN [facility] [place] [address] documented as of this encounter Visit Diagnoses Not on filedocumented in this encounter Care Teams Concrete Journeyman Relationship Specialty Start Date End Date Yumiko Tavarez MD [address] [place] [address] PCP - General Family Medicine 07/07/16 documented as of this encounter
--- OUTSIDE RECORDS SUMMARY | 2024-01-28 12:24 | XMS_ITS | Encounter Summary ---
Author Organization [facility] [place] [address] Care Team Providers Care Clod Puller Name Role Phone Yumiko Tavarez MD Primary Care Provider [phone] Encounter Details Date Type Department Care Team (Late st Contact Info) Description 09/12/2018 11:00 AM EDT Office [place] [address] Razia Mims MD [facility] [place] [address] Primary Parkinsonism Social History Tobacco Use Types [...] Mims MD - 09/12/2018 11:00 AM EDT [facility] Movement Disorders Follow Up Patient Evaluation Date of service 09/12/2018 Referring provider Yumiko Tavarez MD [address] [place] [address] Cc: tremor History of present illness Miguelina [...] , Rfl: ??? naloxone (NARCAN) 4 mg/actuation [place], Non-Aerosol, 1 spray by Nasal route as [...] Disp: , Rfl: Social History: Lives in [facility], she is retired from [email or web address]. Remote history of cocaine use (2 times [...] or other genetic testing Razia Mims MD [facility] Neurology-Movement Disorders documented in this encounter Plan of Treatment Upcoming Encounters Date Type Department Care Team (Late st Contact Info) Description 02/04/2024 1:00 PM EST [place] [address] Alta Caban APRN [facility] [place] [address] documented as of this encounter Visit Diagnoses Diagnosis Primary parkinsonism Paralysis agitans documented in this encounter Care Teams Clod Puller Relationship Specialty Start Date End Date Yumiko Tavarez MD [address] [place] [address] PCP - General Family Medicine 5/5/17 documented as of this encounter
--- OUTSIDE RECORDS SUMMARY | 2024-01-28 12:24 | XMS_ITS | Encounter Summary ---
Author Organization [facility] [place] [address] Care Team Providers Care Transportation Economics Teacher Name Role Phone Yumiko Tavarez MD Primary Care Provider [phone] Reason for Visit * Reason Onset Date Comments Medication Refill 04/02/2019 Encounter Details Date Type Department Care Team (Late st Contact Info) Description 04/02/2019 [place] [phone] Razia Mims MD [facility] [place] [address] Social History Tobacco Use Types Packs/Day Years [...] 1:00 PM EST Office [place] [phone] Alta Caban APRN [facility] [place] [address] documented as of this encounter Visit Diagnoses Not on filedocumented in this encounter Care Teams Transportation Economics Teacher Relationship Specialty Start Date End Date Yumiko Tavarez MD [address] [place] [address] PCP - General Family Medicine 07/07/16 documented as of this encounter
--- OUTSIDE RECORDS SUMMARY | 2024-01-28 12:24 | XMS_ITS | Encounter Summary ---
Author Organization [facility] [place] [address] Care Team Providers Care Coil Strapper Name Role Phone Yumiko Tavarez MD Primary Care Provider Encounter Details Date Type Department Care Team (Late st Contact Info) Description 05/12/2018 [place] [phone] Razia Mims MD [facility] [place] [address] Social History Tobacco Use Types Packs/Day Years [...] 1:00 PM EST [place] [address] Alta Caban APRN [facility] [place] [address] documented as of this encounter Visit Diagnoses Not on filedocumented in this encounter Care Teams Coil Strapper Relationship Specialty Start Date End Date Yumiko Tavarez MD [address] [place] [address] PCP - General Family Medicine 07/07/16 documented as of this encounter
--- OUTSIDE RECORDS SUMMARY | 2024-01-28 12:24 | XMS_ITS | Encounter Summary ---
Author Organization [facility] [place] [address] Care Team Providers Care Supervising Floorperson Name Role Phone Yumiko Tavarez MD Primary Care Provider [phone] Encounter Details Date Type Department Care Team (Late st Contact Info) Description 12/07/2022 Telephone Neurology at [address] [address] Razia Mims MD [facility] [place] [address] Social History Tobacco Use Types Packs/Day Years [...] I called Miguelina at her mobile number [phone]. Spoke with patient. Patient states her IRMA scan at in 2017 showed Parkinson's and her IRMA scan at [facility] in 2019 showed no Parkinson's. Pt looking forexplanation. Pt encouraged to speak with her neurologist at [facility] who did not have an explanation. Ptstated she had to go as she had to get on a zoom call with her [facility] neurologist. Pt stated she did not require follow-up. * Telephone Encounter - Noris Amin RN - 12/07/2022 10:27 AM EDT Copied from [facility] #[id number]. Topic: Specialty Dept CRMs - Test Results [...] to discuss. Where Was This Test Performed: [facility] documented in this encounter Plan of Treatment Upcoming Encounters Date Type Department Care Team (Late st Contact Info) Description 02/04/2024 1:00 PM EST [place] [address] Alta Caban APRN [facility] [place] [address] documented as of this encounter Visit Diagnoses Not on filedocumented in this encounter Care Teams Supervising Floorperson Relationship Specialty Start Date End Date Yumiko Tavarez MD [address] [place] [address] PCP - General Family Medicine 07/07/16 documented as of this encounter
--- OUTSIDE RECORDS SUMMARY | 2024-01-28 12:24 | XMS_ITS | Encounter Summary ---
Author Organization [place] [address] Care Team Providers Care Electrician'S Helper Name Role Phone Yumiko Tavarez MD Primary Care Provider Reason for Referral * Diagnostic Test (Routine) - Closed Specialty Diagnoses / Procedures Referred By Warren dennis Referred To Contact Diagnoses Stage 3a chronic kidney disease Procedures Duplex Study Renal Arteries, Bilat Herbie Grimes APRN [facility] [place] [address] [facility] [address] [place] [address] Referral ID Status Reason Start Date Expiration Date V isits Requested Visits Authorized [id number] Closed Specialty Service Requested 01/12/2023 01/12/2024 1 1 Encounter Details Date Type Department Care Team (Latest Contact Info) Description 01/02/2023 2:30 PM EDT Office Visit [place] [phone] Herbie Grimes APRN [facility] [place] [address] Stage 3a chronic kidney disease; [...] from the original note were not included. [facility] NEPHROLOGY/HYPERTENSION CLINIC FOLLOW-UP NOTE [id number] ID: 57 y.o.year-old female for follow up [...] in the evening naloxone (Narcan) 4 mg/actuation [place], Non-Aerosol 1 spray by Nasal route as [...] She mentioned being followed by Urrology at [facility] for this complaint. She further dneies [...] cm (4' 11) General: Arrived ambulant in [facility], Cooperative with exam. HEENT: Sclera white, mucous [...] Negative mcL Appearance UA Clear Clear Spec [place] UA 1.016 1.005 - 1.030 Color UA [...] Ultrasound dated 01/02 PATIENT INFO: ID #: [id number] : [birth year] (57 yrs)(F) Name: CYDNEY Fuentes Visit Date: 01/02/2023 02:02 pm [place] PERFORMED BY: Attending: Rosalinda Gonzalez MD Performed By: Jany Avila RDMS Referred By: WILBERT CHAVIS Location: [place] SERVICE(S) PROVIDED: URETRO - Retroperitoneal Complete - [id number] INDICATIONS: 57 y.o. female CKD3, r/o anatomic [...] Electronically signed by: Rosalinda Gonzalez MD, Radiology [place] ([phone]), at 01/02/2023 3:57 PM A/P: Cydney Morales is a 57 y.o. year old female seen today for follow up of CKD. CKD stage 3: Serum Creatinine 1.27, eGFR 49 Creatinine up trended slightly since her last encounter. This mild uptrend may be hemodynamically driven. She has been doing well with the exception of altered urinary stream. Endorses being followed by Urology at [facility] and being seen recently. We do not have records of this visit. Will attempt to reach out to the [facility] for the records Renal [...] and coordination of care. Herbie Grimes APRN [facility] [address] 2nd floor, Information Support Project Manager [address] [place] [address] CC: Yumiko Tavarez MD @[email or web address]@ documented in this encounter Miscellaneous Notes * Addendum Note - Herbie Grimes APRN - 01/02/2023 2:30 PM EDT Addended by: HERBIE GRIMES on: 01/12/2023 02:28 PM Modules accepted: Orders documented in this encounter Plan of Treatment Upcoming Encounters Date Type Department Care Team (Late st Contact Info) Description 02/04/2024 1:00 PM EST [place] [address] Alta Caban APRN [facility] [place] [address] documented as of this encounter Results * Protein/Creatinine Ratio, urine (01/02/2023 1:26 PM EDT) Creatinine, Urine 152 mg/dL [facility] Protein, Urine 7 0 - 12 mg/dL [facility] Protein / Creatinine Ratio, Urine <0.1 ratio [facility] Urine 01/02/2023 1:26 PM EDT 01/02/2023 1:38 PM EDT Narrative Resulting Agency Comment Spec In Lab Herbie Grimes APRN URINE ORD ERABLES [facility] [place] [address] * U Albumin/Cre Ratio (01/02/2023 1:26 PM EDT) Albumin / Creatinin Ratio, Urine 3 0 - 29 mcg/mg Cr [facility] Comment: Reference Ranges: <30 mcg/mg: [...] 2, 357? 362 Albumin, Urine 3.9 mg/L [facility] Creatinine, Urine 152 mg/dL [facility] Urine 01/02/2023 1:26 PM EDT 01/02/2023 1:38 PM EDT Narrative Resulting Agency Comment Spec In Lab Herbie Leach Cornelio RN NEUROLOGY URINE ORD ERABLES [facility] [address] [place] [address] * (ABNORMAL) _Urinalysis with microscopic (01/02/2023 1:26 PM EDT) Glucose, Urine Dipstick Negative Negative mg/dL [facility] Protein, Urine Dipstick Negative Negative mg/dL [facility] Bilirubin, Urine Dipstick Negative Negative mg/dL [facility] Comment: Clinical correlation required for positive Urine Bilirubin results as false positive may occur with some drugs and drug related products. If a false positive is suspected a serum total bilirubin should be considered if clinically indicated. Urobilinogen, Urine Dipstick Normal Normal mg/dL [facility] pH, Urn (dipstick) 5.5 5.0 - 8.0 [facility] Blood, Urine Dipstick Moderate(A) Negative mg/dL [facility] Ketone, Urine Dipstick Negative Negative mg/dL [facility] Nitrite, Urine Dipstick Negative Negative [facility] Leukocytes, Urine Dipstick Negative Negative [facility] Appearance, Urine Dipstick Clear Clear [facility] Specific [place] Urine Automated 1.016 1.005 - 1.030 [facility] Color, Urine Dipstick Yellow Yellow [facility] RBC, Urine 3 0 - 4 /HPF [facility] WBC, Urine 1 0 - 5 /HPF [facility] Bacteria, Urine Occasional(A ) None /HPF [facility] Squamous Epithelial Cells Raw Data, Urine 4 <=4 /HPF [facility] Hyaline Casts, Urine 5(H) 0 - 2 /LPF [facility] Urine 01/02/2023 1:26 PM EDT 01/02/2023 1:38 PM EDT Narrative Resulting Agency Comment Spec In Lab Herbie Leach Cornelio LERNER URINE ORD ERABLES Performing Organization Address City/[facility]/ZIP Co de Phone Number [facility] [place] [address] * Phosphorus (01/02/2023 1:18 PM EDT) Phosphorus 3.8 2.5 - 4.5 mg/dL [facility] Blood 01/02/2023 1:18 PM EDT 01/02/2023 1:26 PM EDT Narrative Resulting Agency Comment Spec In Lab Herbie Leach Cornelio LERNER CHEMISTRY ORDERABLES Performing Organization Address City/[facility]/ZIP Co de Phone Number [facility] [place] [address] * (ABNORMAL) PTH (01/02/2023 1:18 PM EDT) Parathyroid Hormone 118(H) 15 - 65 pg/mL [facility] Blood 01/02/2023 1:18 PM EDT 01/02/2023 1:26 PM EDT Narrative Resulting Agency Comment Spec In Lab Herbie Leach Cornelio LERNER CHEMISTRY ORDERABLES Performing Organization Address [facility]/ZIP Co de Phone Number [facility] [place] [address] * Vitamin D, 25-Hydroxy (01/02/2023 1:18 PM EDT) Vitamin D Total 25 OH 56 21 - 100 ng/mL [facility] Vit D Interp Sufficient [facility] Blood 01/02/2023 1:18 PM EDT 01/02/2023 1:26 PM EDT Narrative Resulting Agency Comment Spec In Lab Herbiejamaica Grimes APRN CHEMISTRY ORDERABLES Performing Organization Address [facility] Co de Phone Number [facility] [place] [address] * (ABNORMAL) Basic Metabolic Panel (non-fasting) (01/02/2023 1:18 PM EDT) Glucose 95 65 - 199 mg/dL [facility] Comment:Diabetes: >=200 mg/d L plus symptoms Blood Urea Nitrogen 13 8 - 18 mg/dL [facility] Creatinine 1.27(H) 0.70 - 1.20 mg/dL [facility] Sodium 141 135 - 145 mmol/L [facility] Potassium 4.4 3.5 - 5.0 mmol/L [facility] Comment: Please note: ??Patients with WBC >100,000 may have falsely elevated Potassium levels. ??For accurate Potassium quantification in these patients send serum separator tube (gold top) for subsequent determinations. ??Contact the Clinical Chemistry Laboratory if there are any questions. Chloride 104 98 - 107 mmol/L [facility] Carbon Dioxide 27 22 - 31 mmol/L [facility] Anion Gap 10 5 - 15 mmol/L [facility] Calcium 9.2 8.5 - 10.5 mg/dL [facility] Est Glomerular Filtration Rate 49(L) >=60 mL/min/1. 73 m?? [facility] Comment: This patient's estimated GFR [...] Grimes APRN CHEMISTRY ORDERABLES Performing Organization Address [facility]/ZIP Co de Phone Number [facility] [place] [address] * Albumin Level (01/02/2023 1:18 PM EDT) Albumin 4.0 3.2 - 5.2 g/dL [facility] Blood 01/02/2023 1:18 PM EDT 01/02/2023 1:26 PM EDT Narrative Resulting Agency Comment Spec In Lab Herbie Grimes RN NEUROLOGY CHEMISTRY ORDERABLES [facility] [place] [address] documented in this encounter Visit Diagnoses Diagnosis Stage 3a chronic kidney disease PTSD (post-traumatic stress disorder) Posttraumatic stress disorder Hyperparathyroidism Hyperparathyroidism, unspecified Anxiety Anxiety state, unspecified documented in this encounter Care Teams Electrician'S Helper Relationship Specialty Start Date End Date Yumiko Tavarez MD [address] [place] [address] PCP - General Family Medicine 07/07/16 documented as of this encounter
--- OUTSIDE RECORDS SUMMARY | 2024-01-28 12:24 | XMS_ITS | Encounter Summary ---
Author Organization [place] [address] Care Team Providers Care Machine Rebuilder Name Role Phone Yumiko Tavarez MD Primary Care Provider Reason for Visit * Reason Onset Date Comments Medication Refill 03/03/2019 Encounter Details Date Type Department Care Team (Late st Contact Info) Description 03/03/2019 [place] [phone] Razia Mims MD [facility] [place] [address] Social History Tobacco Use Types Packs/Day Years [...] 1:00 PM EST [place] [phone] Alta Caban APRN [facility] [place] [address] documented as of this encounter Visit Diagnoses Not on filedocumented in this encounter Care Teams Machine Rebuilder Relationship Specialty Start Date End Date Yumiko Tavarez MD [address] [place] [address] PCP - General Family Medicine 07/07/16 documented as of this encounter
--- OUTSIDE RECORDS SUMMARY | 2024-01-28 12:24 | XMS_ITS | Encounter Summary ---
Author Organization [facility] [place] [address] Care Team Providers Care Battery Charger Conveyor Line Name Role Phone Yumiko Tavarez MD Primary Care Provider Encounter Details Date Type Department Care Team (Late st Contact Info) Description 01/11/2017 [place] [address] Razia Mims MD [facility] [place] [address] Social History Tobacco Use Types Packs/Day Years [...] appointment moved to February. Razia Mims MD [facility] Neurology-Movement Disorders documented in this encounter Plan of Treatment Upcoming Encounters Date Type Department Care Team (Late st Contact Info) Description 02/04/2024 1:00 PM EST [place] [address] Alta Caban APRN [facility] [place] [address] documented as of this encounter Visit Diagnoses Not on filedocumented in this encounter Care Teams Battery Charger Conveyor Line Relationship Specialty Start Date End Date Yumiko Tavarez MD [address] [place] [address] PCP - General Family Medicine 07/07/16 documented as of this encounter
--- OUTSIDE RECORDS SUMMARY | 2024-01-28 12:24 | XMS_ITS | Encounter Summary ---
Author Organization [facility] [place] [address] Care Team Providers Care Permastone Installer Name Role Phone Yumiko Tavarez MD Primary Care Provider [phone] Encounter Details Date Type Department Care Team (Late st Contact Info) Description 11/20/2018 Orders [place] [phone] Razia Mims MD [facility] [place] [address] Preventive measure Social History Tobacco Use Types [...] 1:00 PM EST Office [place] [address] Alta Caban APRN [facility] [place] [address] documented as of this encounter Visit Diagnoses Diagnosis Preventive measure Unspecified prophylactic or treatment measure documented in this encounter Care Teams Permastone Installer Relationship Specialty Start Date End Date Yumiko Tavarez MD [address] [place] [address] PCP - General Family Medicine 07/07/16 documented as of this encounter
--- OUTSIDE RECORDS SUMMARY | 2024-01-28 12:24 | XMS_ITS | Encounter Summary ---
[place] [address] Care Team Providers Care Slot Floorperson Name Role Phone Yumiko Tavarez MD [...] 1:00 PM EST [place] [address] Alta Caban APRN [facility] [place] [address] documented as of this encounter Visit Diagnoses Not on filedocumented in this encounter Care Teams Slot Floorperson Relationship Specialty Start Date End Date Yumiko Tavarez MD [address] [place] [address] PCP - General Family Medicine 07/07/16 documented as of this encounter
--- OUTSIDE RECORDS SUMMARY | 2024-01-28 12:24 | XMS_ITS | Encounter Summary ---
Author Organization [facility] [place] [address] Care Team Providers Care Dental Technician Name Role Phone Yumiko Tavarez MD Primary Care Provider [phone] Encounter Details Date Type Department Care Team (Late st Contact Info) Description 08/12/2018 Telephone [place] [address] Razia Mims MD [facility] [place] [address] Social History Tobacco Use Types Packs/Day Years [...] 1:00 PM EST Office [place] [address] Alta Caban [facility] [place] [address] documented as of this encounter Visit Diagnoses Not on filedocumented in this encounter Care Teams Dental Technician Relationship Specialty Start Date End Date Yumiko Tavarez MD [address] [place] [address] PCP - General Family Medicine 07/07/16 documented as of this encounter
--- OUTSIDE RECORDS SUMMARY | 2024-01-28 12:24 | XMS_ITS | Encounter Summary ---
Author Organization [facility] [place] [address] Care Team Providers Care Production Underwriter Name Role Phone Yumiko Tavarez MD Primary Care Provider Encounter Details Date Type Department Care Team (Late st Contact Info) Description 08/12/2018 Orders [place] [phone] Razia Mims MD [facility] [place] [address] Social History Tobacco Use Types Packs/Day Years [...] PM EST Office [place] [address] Alta Caban [address]N [facility] [place] [address] documented as of this encounter Visit Diagnoses Not on filedocumented in this encounter Care Teams Production Underwriter Relationship Specialty Start Date End Date Yumiko Tavarez MD [address] [place] [address] PCP - General Family Medicine 07/07/16 documented as of this encounter
--- OUTSIDE RECORDS SUMMARY | 2024-01-28 12:24 | XMS_ITS | Encounter Summary ---
Author Organization [place] [address] Care Team Providers Care Clerical Office Name Role Phone Yumiko Tavarez MD Primary Care Provider [phone] Encounter Details Date Type Department Care Team (Late st Contact Info) Description 10/08/2018 [place] [address] Razia Mims MD [facility] [place] [address] Social History Tobacco Use Types Packs/Day Years [...] Upcoming Encounters Date Type Department Care Team (New harmon Contact Info) Description 02/04/2024 1:00 PM EST [place] [address] Alta Caban APRN [facility] [place] [address] documented as of this encounter Visit Diagnoses Not on filedocumented in this encounter Care Teams Clerical Office Relationship Specialty Start Date End Date Yumiko Tavarez MD [address] [place] [address] PCP - General Family Medicine 07/07/16 documented as of this encounter
--- OUTSIDE RECORDS SUMMARY | 2024-01-28 12:24 | XMS_ITS | Encounter Summary ---
[place] [address] Care Team Providers Care Sanitation Engineer Name Role Phone Yumiko Tavarez MD Primary Care Provider [phone] Reason for Referral * Consultation (Routine) - Closed Specialty Diagnoses / Procedures Referred By Contac t Referred To Contact Nephrology Diagnoses Stage 3 chronic kidney disease, unspecified whether stage 3a or 3b CKD Yumiko Tavarez MD [address] [place] [address] [facility] [address] [place] [address] Referral ID Status Reason Start Date Expiration Date V isits Requested Visits Authorized [id number] Closed Consult, Test & Treat PCP Updated and/or Approved 03/13/2022 09/09/2022 1 1 Encounter Details Date Type Department Care Team (Latest Contact Info) Description 03/13/2022 Transcribe Orders [facility] Incoming Referrals [phone] Yumiko Tavarez MD [address] [place], [place] [id number] Stage 3 chronic kidney disease, unspecified whether [...] 1:00 PM EST [place] [address] Alta Caban APRN [facility] [place] [address] Scheduled Referrals Name Type Priority Associated Diagnoses Orde r Schedule Referral to Nephrology Outpatient Referral Routine Stage 3 Chronic Kidney Disease, Unspecified Whether Stage 3a Or 3b Ckd Ordered: 03/13/2022 documented as of this encounter Visit Diagnoses Diagnosis Stage 3 chronic kidney disease, unspecified whether stage 3a or 3b CKD documented in this encounter Care Teams Sanitation Engineer Relationship Specialty Start Date End Date Yumiko Tavarez MD [address] [place] [address] PCP - General Family Medicine 07/07/16 documented as of this encounter
--- OUTSIDE RECORDS SUMMARY | 2024-01-28 12:24 | XMS_ITS | Encounter Summary ---
Author Organization [facility] [place] [address] Care Team Providers Care Civil Geotechnical Engineer Name Role Phone Yumiko Tavarez MD Primary Care Provider [phone] Reason for Visit * Reason Onset Date Comments Medication Problem 03/04/2020 Encounter Details Date Type Department Care Team (Late st Contact Info) Description 03/04/2020 [place] [address] Razia Mims MD [facility] [place] [address] Medication Problem Social History Tobacco Use Types [...] 03/04/2020 11:22 AM EST Call Center / Refinery Technician Message - Medication Issue (Not to be used for refill request or medication prior auth request) Provider patient sees in Clinic: Dr. Mims Caller and relationship (if other than patient-full name): Dick Rothman patient support program Call Back Number: [phone] Ok to leave a message: Reason for call: Medication Issue (if medication issue is a symptom do not use this phrase) Message/information for the nurse: Name of Medication: Rytary 195mg Issue with the medication: Dick called stating that the fax he received was blurry and he needs some information on insurance for patient . They are open from 8:00 am- 8;00pm M- except closed Disposition of Call: ?? Routine Message sent to the Nurse yes ?? Other: no documented in this encounter Plan of Treatment Upcoming Encounters Date Type Department Care Team (Late st Contact Info) Description 02/04/2024 1:00 PM EST [place] [address] Alta Caban APRN [facility] [place] [place] [address] documented as of this encounter Visit Diagnoses Not on filedocumented in this encounter Care Teams Civil Geotechnical Engineer Relationship Specialty Start Date End Date Yumiko Tavarez MD [address] [place] [address] PCP - General Family Medicine 07/07/16 documented as of this encounter
--- OUTSIDE RECORDS SUMMARY | 2024-01-28 12:24 | XMS_ITS | Encounter Summary ---
Author Organization [facility] [place] [address] Care Team Providers Care Dental Technician Apprentice Name Role Phone Yumiko Tavarez MD Primary Care Provider [phone] Encounter Details Date Type Department Care Team (Late st Contact Info) Description 04/01/2019 [place] [phone] Razia Mims MD [facility] [place] [address] Social History Tobacco Use Types Packs/Day Years [...] 1:00 PM EST [place] [address] Alta Caban APRN [facility] [place] [address] documented as of this encounter Visit Diagnoses Not on filedocumented in this encounter Care Teams Dental Technician Apprentice Relationship Specialty Start Date End Date Yumiko Tavarez MD [address] [place] [address] PCP - General Family Medicine 07/07/16 documented as of this encounter
--- OUTSIDE RECORDS SUMMARY | 2024-01-28 12:24 | XMS_ITS | Encounter Summary ---
Author Organization [facility] [place] [address] Care Team Providers Care Electrical Estimator Name Role Phone Yumiko Tavarez MD Primary Care Provider [phone] Reason for Visit * Reason Onset Date Comments Medication Refill 01/21/2019 Encounter Details Date Type Department Care Team (Late st Contact Info) Description 01/21/2019 [place] [address] Razia Mims MD [facility] [place] [address] Social History Tobacco Use Types Packs/Day Years [...] 1:00 PM EST [place] [address] Alta Caban APRN [facility] [address] documented as of this encounter Visit Diagnoses Not on filedocumented in this encounter Care Teams Electrical Estimator Relationship Specialty Start Date End Date Yumiko Tavarez MD [address] [place] [address] PCP - General Family Medicine 07/07/16 documented as of this encounter
--- OUTSIDE RECORDS SUMMARY | 2024-01-28 12:24 | XMS_ITS | Encounter Summary ---
Author Organization [facility] [place] [address] Care Team Providers Care Varnish Cooker Name Role Phone Yumiko Tavarez MD Primary Care Provider [phone] Reason for Visit * Consultation (Routine) - Closed Specialty Diagnoses / Procedures Referred By Warren dennis Referred To Contact Nephrology Diagnoses Stage 3 chronic kidney disease, unspecified whether stage 3a or 3b CKD Yumiko Tavarez MD [address] [place] [address] [facility] [address] [place] [phone] Referral ID Status Reason Start Date Expiration Date V isits Requested Visits Authorized [id number] Closed Consult, Test & Treat PCP Updated and/or Approved 03/13/2022 09/09/2022 1 1 Encounter Details Date Type Department Care Team (Late st Contact Info) Description 08/14/2022 1:00 PM EDT Office Visit Ne[place] [phone] Neeraj Vasquez MD [facility] [place] [place] [address] Stage 3a chronic kidney disease; [...] Vasquez MD - 08/14/2022 1:00 PM EDT [facility] 08/14/22 PRIMARY [...] in the evening naloxone (Narcan) 4 mg/actuation [place], Non-Aerosol 1 spray by Nasal route as [...] -70 pg/ml Calcium :.Phosphorus within normal limit [id number] D adequate : PTH : 73 * [...] lab including PTH Renal sonogram Neeraj Vasquez. [facility] [place] [address] * Efren Suh MD - 08/14/2022 1:00 [...] 1:00 PM EST [place] [address] Alta Caban APRN [facility] [place] [address] documented as of this encounter Results * (ABNORMAL) Urinalysis without microscopic (08/14/2022 12:24 PM EDT) Glucose, Urine Dipstick Negative Negative mg/dL [facility] Protein, Urine Dipstick Negative Negative mg/dL [facility] Bilirubin, Urine Dipstick Negative Negative mg/dL [facility] Comment: Clinical correlation required for positive Urine Bilirubin results as false positive may occur with some drugs and drug related products. If a false positive is suspected a serum total bilirubin should be considered if clinically indicated. Urobilinogen, Urine Dipstick Normal Normal mg/dL [facility] pH, Urn (dipstick) 6.0 5.0 - 8.0 [facility] Blood, Urine Dipstick Small(A) Negative mg/dL [facility] Ketone, Urine Dipstick Negative Negative mg/dL [facility] Nitrite, Urine Dipstick Negative Negative [facility] Leukocytes, Urine Dipstick Negative Negative mcL [facility] Appearance, Urine Dipstick Clear Clear [facility] Specific [place] Urine Automated 1.010 1.005 - 1.030 [facility] Color, Urine Dipstick Yellow Yellow [facility] Urine 08/14/2022 12:2 4 PM EDT 08/14/2022 12:33 PM EDT Narrative Resulting Agency Comment Spec In Lab Efren Suh MD URINE ORDERABLES Performing Organization Address City/[facility]/ZIP Co de Phone Number [facility] [place] [address] * Vitamin D, 25-Hydroxy (08/14/2022 11:52 AM EDT) Vitamin D Total 25 OH 40 21 - 100 ng/mL [facility] Vit D Interp Sufficient [facility] Blood 08/14/2022 11:5 2 AM EDT 08/14/2022 11:59 AM EDT Narrative Resulting Agency Comment Spec In Lab Efren Suh MD CHEMISTRY ORDERABLES [facility] [place] [address] * Phosphorus (08/14/2022 11:52 AM EDT) Phosphorus 4.2 2.5 - 4.5 mg/dL [facility] Blood 08/14/2022 11:5 2 AM EDT 08/14/2022 11:59 AM EDT Narrative Resulting Agency Comment Spec In Lab Efren Suh MD CHEMISTRY ORDERABLES [facility] [place] [address] * Calcium (08/14/2022 11:52 AM EDT) Calcium 9.6 8.5 - 10.5 mg/dL [facility] Blood 08/14/2022 11:5 2 AM EDT 08/14/2022 11:59 AM EDT Narrative Resulting Agency Comment Spec In Lab Efren Suh MD CHEMISTRY ORDERABLES [facility] [place] [address] * (ABNORMAL) PTH (08/14/2022 11:52 AM EDT) Parathyroid Hormone 76(H) 15 - 65 pg/mL [facility] Blood 08/14/2022 11:5 2 AM EDT 08/14/2022 11:59 AM EDT Narrative Resulting Agency Comment Spec In Lab Efrne Suh MD CHEMISTRY ORDERABLES [facility] [place] [address] * (ABNORMAL) Basic Metabolic Panel (non-fasting) (08/14/2022 11:52 AM EDT) Glucose 82 65 - 199 mg/dL [facility] Comment:Diabetes: >=200 mg/d L plus symptoms Blood Urea Nitrogen 13 8 - 18 mg/dL [facility] Creatinine 1.14 0.70 - 1.20 mg/dL [facility] Sodium 141 135 - 145 mmol/L [facility] Potassium 4.5 3.5 - 5.0 mmol/L [facility] Comment: Please note: ??Patients with WBC >100,000 may have falsely elevated Potassium levels. ??For accurate Potassium quantification in these patients send serum separator tube (gold top) for subsequent determinations. ??Contact the Clinical Chemistry Laboratory if there are any questions. Chloride 103 98 - 107 mmol/L [facility] Carbon Dioxide 28 22 - 31 mmol/L [facility] Anion Gap 10 5 - 15 mmol/L [facility] Calcium 9.6 8.5 - 10.5 mg/dL [facility] Est Glomerular Filtration Rate 55(L) >=60 mL/min/1. 73 m?? [facility] Comment: This patient's estimated GFR [...] In Lab Efren Suh MD CHEMISTRY ORDERABLES [facility] [place] [address] documented in this encounter Visit Diagnoses Diagnosis Stage 3a chronic kidney disease Hyperparathyroidism Hyperparathyroidism, unspecified documented in this encounter Care Teams Varnish Cooker Relationship Specialty Start Date End Date Yumiko Tavarez MD [address] [place] [address] PCP - General Family Medicine 07/07/16 documented as of this encounter
--- OUTSIDE RECORDS SUMMARY | 2024-01-28 12:25 | XMS_ITS | Encounter Summary ---
Author Organization [facility] [place] [address] Care Team Providers Care Administrative Technician Name Role Phone Serafin Glass MD Primary Care Provider + Encounter Details Date Type Department Care Team (Late st Contact Info) Description 01/23/2013 Orders [place] [phone] Marty Nick MD [facility] [place] [address] Social History Tobacco Use Types Packs/Day Years [...] 1:00 PM EST [place] [phone] Alta Caban APRN [facility] [place] [place] [address] documented as of this encounter Procedures Procedure [...] is a Non-reportable exam Marty Nick MD [facility] FILM LIBRARY ORDERABLES documented in this encounter Visit Diagnoses Not on filedocumented in this encounter Care Teams Administrative Technician Relationship Specialty Start Date End Date Serafin Glass MD [address] [place] [address] PCP - General 01/25/10 07/06/16 documented as of this encounter
--- OUTSIDE RECORDS SUMMARY | 2024-01-28 12:25 | XMS_ITS | Encounter Summary ---
Author Organization [facility] [place] [address] Care Team Providers Care Lawn Maintenance Worker Name Role Phone Yumiko Tavarez MD Primary Care Provider [phone] Encounter Details Date Type Department Care Team (Late st Contact Info) Description 11/20/2016 1:40 PM EDT Laboratory Appointment Lab [address] [place] [phone] Chorea Social History Tobacco Use Types Packs/Day [...] 1:00 PM EST Office [place] [phone] Alta Caban APRN [facility] [place] [address] documented as of this encounter Procedures Procedure [...] 1:49 PM EDT Chorea COMPREHENSIVE METABOLIC PANEL Routine 11/20/2016 1:49 PM EDT Chorea documented in this encounter Results * [facility] Test[facility] (11/20/2016 1:50 PM EDT) [facility] Test ?Result ? Flag ??Unit ??RefValue Taney Disease Analysis ??Result Summary ?NEGATIVE ??Result ?CAG repeat: 17 and 18 (Normal) ??Interpretation ?SEE COMMENTS ?This result suggests that this individual is very unlikely ?to have Krysta disease (HD). To date, alterations other ?than [...] penetrance: >39 ?An online research opportunity called [employer] ?([email or web address] ), a project of [employer], is available for ?the recipient of this genetic test. This patient registry ?collects de-identified genetic and health information to ?advance the knowledge of genetic variants. [facility] is a ?collaborator of [employer]. This may not be applicable for all [...] allogenic donors will ?interfere with testing. Call [facility] [employer] for ?instructions for testing patients who have received a bone ?marrow transplant. ?Multiple in-silico evaluation tools may have been used to ?assist in the interpretation of these results. Of note, the ?sensitivity and specificity of these tools for the ?determination of pathogenicity is currently unvalidated. ?This test was developed and its performance characteristics ?determined by [facility] in a manner consistent with CLIA ?requirements. This test has not been cleared or approved by ?the U.S. Food and Drug Administration. ??Reason for Referral ? SEE COMMENTS ?Evaluation for a diagnosis of Krysta disease (HD). Test ?for the presence of an expansion in the HTT gene. ??Specimen ?WB Whole Blood ??Released By ? Angelica Crawford M.D. ?Test Performed by: ?[facility] ?[address] [place], [place] [id number] [place] [address] LABORATORY Blood specimen (specimen) Venous Draw / Unknown 11/20/2016 1:50 PM EDT 11/20/2016 4:05 PM EDT Narrative Resulting Agency Comment Spec In Lab Razia Mims MD LAB SEND OUT ORDER [place] [facility] [place] [address] * Differential, Automated (11/20/2016 1:49 PM EDT) Neutrophil % 49.9 % [facility] Neutrophil Absolute 3.35 1.70 - 6.10 x10(3)/[facility] Lymph % 43.5 % [facility] Lymphocytes Abs 2.9 0.9 - 3.2 x10(3)/[facility] Monocyte % 5.6 % [facility] Monocyte Abs 0.4 0.3 - 0.9 x10(3)/[facility] Eos % 0.6 % [facility] Eosinophils Abs 0.0 0.0 - 0.4 x10(3)/[facility] Basophil % 0.3 % [facility] Baso Absolute 0.0 0.0 - 0.1 x10(3)/[facility] Immature Gran % 0.10 % [facility] Comment: Immature granulocytes(IG's)percentage and absolute count will include metamyelocytes, myelocytes, and promyelocytes. Blood smears from CBCs yielding IG's will be scanned manually for concordance. If this scan disagrees with the automated IG or if promyelocytes are noted, a manual differential will be performed. Immature Gran Absolute 0.01 0.00 - 0.04 x10(3)/[facility] Blood specimen (specimen) 11/20/2016 1:49 PM EDT 11/20/2016 2:01 PM EDT Narrative Resulting Agency Comment Spec In Lab Razia Mims MD HEMATOLOGY ORDERAB LES [facility] [place] [address] * (ABNORMAL) Hemogram (11/20/2016 1:49 PM EDT) White Blood Cell 6.7 4.0 - 9.5 x10(3)/ L [facility] Red Blood Cell 3.99(L) 4.00 - 5.21 x10(6)/ L [facility] Hemoglobin 12.8 11.7 - 15.5 gm/dL [facility] Hematocrit 37.4 35.7 - 45.8 % [facility] Mean Cell Volume 93.7 82.6 - 94.4 fL [facility] Mean Cell Hemoglobin 32.1(H) 27.1 - 32.0 pg [facility] Mean Cell Hemoglobin Concentration 34.2 31.7 - 35.0 gm/dL [facility] Platelet 262 145 - 357 x10(3)/mc L [facility] RDW Standard Deviation 38.8 37.0 - 46.0 fL [facility] RDW coefficient of variation 11.4(L) 11.5 - 14.1 % [facility] Mean Platelet Volume 10.3 7.6 - 12.9 fL [facility] NRBC% auto 0.0 % [facility] NRBC Absolute 0.000 0.000 - 0.000 x10(3)/mc L [facility] Blood specimen (specimen) 11/20/2016 1:49 PM EDT 11/20/2016 2:01 PM EDT Narrative Resulting Agency Comment Spec In Lab Razia Mims MD HEMATOLOGY ORDERAB LES Performing Organization Address [facility] Co de Phone Number [facility] [place] [address] * Lyme IgG & IgM Antibody (11/20/2016 1:49 PM EDT) Lyme Antibody Neg Neg [facility] Blood specimen (specimen) 11/20/2016 1:49 PM EDT 11/21/2016 8:31 AM EDT Narrative Resulting Agency Comment Spec In Lab Razia Mims MD IMMUNOLOGY ORDERAB LES Performing Organization Address [facility] Co de Phone Number [facility] [place] [address] * Ceruloplasmin (11/20/2016 1:49 PM EDT) Ceruloplasmin 37.5 16.0 - 45.0 mg/dL [facility] Blood specimen (specimen) 11/20/2016 1:49 PM EDT 11/20/2016 2:01 PM EDT Narrative Resulting Agency Comment Spec In Lab Razia Mims MD CHEMISTRY ORDERABL ES Performing Organization Address [facility] Co de Phone Number [facility] [place] [address] * Miscellaneous Lab request (11/20/2016 1:49 PM EDT) Label Request received in lab. [facility] Blood specimen (specimen) 11/20/2016 1:49 PM EDT 11/20/2016 2:01 PM EDT Narrative Resulting Agency Comment Spec In Lab Razia Mims MD LAB SEND OUT ORDER [place] Performing Organization Address [facility] Co de Phone Number [facility] [place] [address] * Streptococcal Antibody Panel (11/20/2016 1:49 PM EDT) [facility] Aso Titer (JULY) 44 0 - 530 IU/mL [facility] Comment: Test Performed by: [facility] [address] [place] [address] Dnase B Ab (JULY) <74 0 - 300 unit/mL [facility] Comment: Test Performed by: [facility] [address] [place] [address] Blood specimen (specimen) 11/20/2016 1:49 PM EDT 11/20/2016 4:01 PM EDT Narrative Resulting Agency Comment Spec In Lab Razia Mims MD LAB SEND OUT ORDER [place] Performing Organization Address [facility]/ZIP Co de Phone Number [facility] [place] [address] * C4 Complement (11/20/2016 1:49 PM EDT) Complement C4 27 10 - 40 mg/dL [facility] Blood specimen (specimen) 11/20/2016 1:49 PM EDT 11/20/2016 2:01 PM EDT Narrative Resulting Agency Comment Spec In Lab Razai Mims MD CHEMISTRY ORDERABL ES Performing Organization Address [facility]/ZIP Co de Phone Number [facility] [place] [address] * C3 Complement (11/20/2016 1:49 PM EDT) Complement C3 119 90 - 180 mg/dL [facility] Blood specimen (specimen) 11/20/2016 1:49 PM EDT 11/20/2016 2:01 PM EDT Narrative Resulting Agency Comment Spec In Lab Razia Mims MD CHEMISTRY ORDERABL ES Performing Organization Address [facility]/ZIP Co de Phone Number [facility] [place] [address] * T4, free (11/20/2016 1:49 PM EDT) Free T4 1.04 0.93 - 1.70 ng/dL [facility] Blood specimen (specimen) 11/20/2016 1:49 PM EDT 11/20/2016 2:01 PM EDT Narrative Resulting Agency Comment Spec In Lab Razia Mims MD CHEMISTRY ORDERABL ES Performing Organization Address City/[facility]/ZIP Co de Phone Number [facility] [place] [address] * ARMEN (11/20/2016 1:49 PM EDT) ARMEN Neg Neg [facility] Blood specimen (specimen) 11/20/2016 1:49 PM EDT 11/21/2016 7:30 AM EDT Narrative Resulting Agency Comment Spec In Lab Razia Mims MD LAB SEND OUT ORDER [place] Performing Organization Address [facility] de Phone Number [facility] [place] [address] * Cardiolipin Antibody Screen (11/20/2016 1:49 PM EDT) Cardiolipin Antibody IgG <23 <=22 GPL unit(s) [facility] Comment: Ranges ? GPL ------- ? ------ Normal ?<23 Low Positive ? 23-35 Moderate Positive ?36-50 High Positive ? >50 Cardiolipin Antibody IgM <11 <=10 MPL unit(s) [facility] Comment: Ranges ?MPL ----- ?----- Normal ?<11 Low Positive ? 11-20 Moderate Positive ?21-30 High Positive ? >30 Blood specimen (specimen) 11/20/2016 1:49 PM EDT 11/21/2016 7:30 AM EDT Narrative Resulting Agency Comment Spec In Lab Razia Mims MD IMMUNOLOGY ORDERAB LES Performing Organization Address [facility]/State/ZIP Co de Phone Number [facility] [place] [address] * (ABNORMAL) Comprehensive metabolic panel (non-fasting) (11/20/2016 1:49 PM EDT) Glucose 85 65 - 199 mg/dL [facility] Comment:Diabetes: >=200 mg/d L plus symptoms Blood Urea Nitrogen 18 8 - 18 mg/dL [facility] Creatinine 1.12 0.70 - 1.20 mg/dL [facility] Comment: Please note that the pediatric reference intervals supplied above were not validated at [facility]. Results from pediatric patients should be interpreted in conjunction to the patient's age, height and muscle mass. Sodium 141 135 - 145 mmol/L [facility] Potassium 3.8 3.5 - 5.0 mmol/L [facility] Comment: Please note: ??Patients with WBC >100,000 may have falsely elevated Potassium levels. ??For accurate Potassium quantification in these patients send serum separator tube (gold top) for subsequent determinations. ??Contact the Clinical Chemistry Laboratory if there are any questions. Chloride 99 98 - 107 mmol/L [facility] Carbon Dioxide 31 22 - 31 mmol/L [facility] Anion Gap 11 5 - 15 mmol/L [facility] Calcium 9.6 8.5 - 10.5 mg/dL [facility] Protein, Total 7.5 6.1 - 8.0 gm/dL [facility] Albumin 4.2 3.2 - 5.2 gm/dL [facility] Aspartate Aminotransferase 17 0 - 30 unit/L [facility] Alanine Aminotransferase 11 0 - 30 unit/L [facility] Alkaline Phosphatase 53 40 - 104 unit/L [facility] Bilirubin, Total 0.2 0.2 - 1.3 mg/dL [facility] Est Glomerular Filtration Rate 51(L) >=60 [facility] Comment: This estimated GFR (eGFR) [...] the following links into your internet browser. [email or web address] Blood specimen (specimen) 11/20/2016 1:49 PM EDT 11/20/2016 2:01 PM EDT Narrative Resulting Agency Comment Spec In Lab Razia Mims MD CHEMISTRY ORDERABL ES [facility] [place] [place] [address] documented in this encounter Visit Diagnoses Diagnosis Chorea Other choreas documented in this encounter Care Teams Lawn Maintenance Worker Relationship Specialty Start Date End Date Yumiko Tavarez MD [address] [place] [address] PCP - General Family Medicine 07/07/16 documented as of this encounter
--- OUTSIDE RECORDS SUMMARY | 2024-01-28 12:25 | XMS_ITS | Encounter Summary ---
Author Organization [facility] [place] [address] Care Team Providers Care Math And Sciences Department Chair Name Role Phone Serafin Glass MD Primary Care Provider + Encounter Details Date Type Department Care Team (Late st Contact Info) Description 01/23/2013 Orders [place] [phone] Marty Nick MD [facility] [place] [address] Social History Tobacco Use Types Packs/Day Years [...] 1:00 PM EST [place] [phone] Alta Caban APRN [facility] [place] [address] documented as of this encounter Procedures Procedure [...] is a Non-reportable exam Marty Nick MD [facility] FILM LIBRARY ORDERABLES documented in this encounter Visit Diagnoses Not on filedocumented in this encounter Care Teams Math And Sciences Department Chair Relationship Specialty Start Date End Date Serafin Glass MD [address] [place] [address] PCP - General 01/25/10 07/06/16 documented as of this encounter
--- OUTSIDE RECORDS SUMMARY | 2024-01-28 12:25 | XMS_ITS | Encounter Summary ---
Author Organization [facility] [place] [address] Care Team Providers Care Insurance Loss Control Surveyor Name Role Phone Yumiko Tavarez MD Primary Care Provider [phone] Reason for Referral * Diagnostic Test (Routine) - Closed Specialty Diagnoses / Procedures Referred By Warren dennis Referred To Contact Radiology Diagnoses Chorea Procedures MRI Brain wo Contrast Razia Mims MD [facility] [place] [address] [place] [address] Referral ID Status Reason Start Date Expiration Date V isits Requested Visits Authorized [id number] Closed Specialty Service Requested 11/07/2016 02/05/2017 1 [...] to suggest Sydenham's chorea. Terence Montgomery MD [address] [place] [id number] Prashant Roach MD [facility] [place] [address] Referral ID Status Reason Start Date Expiration Date V isits Requested Visits Authorized [id number] Closed Consult, Test & Treat Connection [facility] 07/07/2016 07/07/2017 1 1 Encounter Details Date Type Department Care Team (Late st Contact Info) Description 11/03/2016 3:30 PM EDT Office Visit Neurology at [facility] [place] [address] Razia Mims MD [facility] [place] [address] Chorea Social History Tobacco Use Types Packs/Day [...] Mims MD - 11/03/2016 3:30 PM EDT [facility] Movement Disorders New Patient Evaluation Date of service 11/03/2016 Referring provider Terence Montgomery MD [address] [address] Cc: involuntary movements History of present illness [...] ??? VERTEBROPLASTY Social History: Lives in [facility], she is retired from [employer] Family History Problem Relation Age of Onset [...] of MRI brain, HD genetic test (extensive program counselor given) and additional labs listed above. Plan: - labs including HD genetic testing - MRI brain - follow up in 2 months This was my initial visit with the patient. I spent 60 minutes with the patient and more than 30 minutes were spent discussion as reflected above Razia Mism MD [facility] Neurology-Movement Disorders documented in this encounter Plan of Treatment Upcoming Encounters Date Type Department Care Team (Late st Contact Info) Description 02/04/2024 1:00 PM EST Office [place] [phone] Alta Caban APRN [facility] [place] [address] documented as of this encounter Results * [...] 1:49 PM EDT) Lyme Antibody Neg Neg [facility] Blood specimen (specimen) 11/20/2016 1:49 PM EDT 11/21/2016 8:31 AM EDT Narrative Resulting Agency Comment Spec In Lab Razia Mims MD IMMUNOLOGY ORDERAB LES Performing Organization Address [facility]/ZIP Co de Phone Number [facility] [place] [address] * Ceruloplasmin (11/20/2016 1:49 PM EDT) Ceruloplasmin 37.5 16.0 - 45.0 mg/dL [facility] Blood specimen (specimen) 11/20/2016 1:49 PM EDT 11/20/2016 2:01 PM EDT Narrative Resulting Agency Comment Spec In Lab Razia Mims MD CHEMISTRY ORDERABL ES Performing Organization Address [facility] Co de Phone Number [facility] [place] [address] * Miscellaneous Lab request (11/20/2016 1:49 PM EDT) Label Request received in lab. [facility] Blood specimen (specimen) 11/20/2016 1:49 PM EDT 11/20/2016 2:01 PM EDT Narrative Resulting Agency Comment Spec In Lab Razia Mims MD LAB SEND OUT ORDER [place] Performing Organization Address [facility] Co de Phone Number [facility] [place] [address] * Streptococcal Antibody Panel (11/20/2016 1:49 PM EDT) Aso Titer (JULY) 44 0 - 530 IU/mL [facility] Comment: Test Performed by: [facility] [address] [place] [address] Dnase B Ab (JULY) <74 0 - 300 unit/mL [facility] Comment: Test Performed by: [facility] [address] [place] [address] Blood specimen (specimen) 11/20/2016 1:49 PM EDT 11/20/2016 4:01 PM EDT Narrative Resulting Agency Comment Spec In Lab Razia Mims MD LAB SEND OUT ORDER [place] Performing Organization Address [facility] Co de Phone Number [facility] [place] [address] * C4 Complement (11/20/2016 1:49 PM EDT) Complement C4 27 10 - 40 mg/dL [facility] Blood specimen (specimen) 11/20/2016 1:49 PM EDT 11/20/2016 2:01 PM EDT Narrative Resulting Agency Comment Spec In Lab Razia Mims MD CHEMISTRY ORDERABL ES Performing Organization Address [facility] Co de Phone Number [facility] [place] [address] * C3 Complement (11/20/2016 1:49 PM EDT) Complement C3 119 90 - 180 mg/dL [facility] Blood specimen (specimen) 11/20/2016 1:49 PM EDT 11/20/2016 2:01 PM EDT Narrative Resulting Agency Comment Spec In Lab Razia Mims MD CHEMISTRY ORDERABL ES Performing Organization Address [facility] Co de Phone Number [facility] [place] [address] * T4, free (11/20/2016 1:49 PM EDT) Free T4 1.04 0.93 - 1.70 ng/dL [facility] Blood specimen (specimen) 11/20/2016 1:49 PM EDT 11/20/2016 2:01 PM EDT Narrative Resulting Agency Comment Spec In Lab Razia Mims MD CHEMISTRY ORDERABL ES Performing Organization Address [facility]/ZIP Co de Phone Number [facility] [place] [address] * ARMEN (11/20/2016 1:49 PM EDT) ARMEN Neg Neg [facility] Blood specimen (specimen) 11/20/2016 1:49 PM EDT 11/21/2016 7:30 AM EDT Narrative Resulting Agency Comment Spec In Lab Razia Mims MD LAB SEND OUT ORDER [place] [facility] [place] [address] * Cardiolipin Antibody Screen (11/20/2016 1:49 PM EDT) Cardiolipin Antibody IgG <23 <=22 GPL unit(s) [facility] Comment: Ranges ? GPL ------- ? ------ Normal ?<23 Low Positive ? 23-35 Moderate Positive ?36-50 High Positive ? >50 Cardiolipin Antibody IgM <11 <=10 MPL unit(s) [facility] Comment: Ranges ?MPL ----- ?----- Normal ?<11 Low Positive ? 11-20 Moderate Positive ?21-30 High Positive ? >30 Blood specimen (specimen) 11/20/2016 1:49 PM EDT 11/21/2016 7:30 AM EDT Narrative Resulting Agency Comment Spec In Lab Razia Mims MD IMMUNOLOGY ORDERAB LES [facility] [place] [address] * (ABNORMAL) Comprehensive metabolic panel (non-fasting) (11/20/2016 1:49 PM EDT) Glucose 85 65 - 199 mg/dL [facility] Comment:Diabetes: >=200 mg/d L plus symptoms Blood Urea Nitrogen 18 8 - 18 mg/dL [facility] Creatinine 1.12 0.70 - 1.20 mg/dL [facility] Comment: Please note that the pediatric reference intervals supplied above were not validated at [facility]. Results from pediatric patients should be interpreted in conjunction to the patient's age, height and muscle mass. Sodium 141 135 - 145 mmol/L [facility] Potassium 3.8 3.5 - 5.0 mmol/L [facility] Comment: Please note: ??Patients with WBC >100,000 may have falsely elevated Potassium levels. ??For accurate Potassium quantification in these patients send serum separator tube (gold top) for subsequent determinations. ??Contact the Clinical Chemistry Laboratory if there are any questions. Chloride 99 98 - 107 mmol/L [facility] Carbon Dioxide 31 22 - 31 mmol/L [facility] Anion Gap 11 5 - 15 mmol/L [facility] Calcium 9.6 8.5 - 10.5 mg/dL [facility] Protein, Total 7.5 6.1 - 8.0 gm/dL [facility] Albumin 4.2 3.2 - 5.2 gm/dL [facility] Aspartate Aminotransferase 17 0 - 30 unit/L [facility] Alanine Aminotransferase 11 0 - 30 unit/L [facility] Alkaline Phosphatase 53 40 - 104 unit/L [facility] Bilirubin, Total 0.2 0.2 - 1.3 mg/dL [facility] Est Glomerular Filtration Rate 51(L) >=60 [facility] Comment: This estimated GFR (eGFR) value [...] the following links into your internet browser. [email or web address] Blood specimen (specimen) 11/20/2016 1:49 PM EDT 11/20/2016 2:01 PM EDT Narrative Resulting Agency Comment Spec In Lab Razia Mims MD CHEMISTRY ORDERABL ES [facility] [place] [address] documented in this encounter Visit Diagnoses Diagnosis Chorea Other choreas Chorea Other choreas documented in this encounter Care Teams Insurance Loss Control Surveyor Relationship Specialty Start Date End Date Yumiko Tavarez MD [address] [place] [address] PCP - General Family Medicine 07/07/16 documented as of this encounter
--- OUTSIDE RECORDS SUMMARY | 2024-01-28 12:25 | XMS_ITS | Encounter Summary ---
Author Organization [facility] [place] [address] Care Team Providers Care Ice Bag Assembler Name Role Phone Unavailable Primary Care Provider Unavailabl e Encounter Details Date Type Department Care Team (Latest Contact Info) Description 06/12/2007 - 06/12/2007 11:59 PM EDT Hospital Encounter Radiology Library at [facility] [place] [phone] Yumiko Tavarez MD [address] [place], [place] [address] Pain Discharge Disposition: Home Social History Tobacco [...] 1:00 PM [place] [phone] Alta Caban APRN [facility] [place] [address] documented as of this encounter Procedures Procedure Name Priority Date/Time Associated Diagnosis Comments FILM LIBRARY STORAGE ONLY MR SPINE Routine 06/12/2007 12:00 AM EDT Pain documented in this encounter Results * Film Library- Storage Only MR Spine (06/12/2007 12:00 AM EDT) Narrative [facility] - 07/13/2016 2:47 PM EDT This exam is for storage only and is auto-finalizing. Yumiko Tavarez MD [facility] FILM LIBRARY ORD ERABLES Performing Organization Address City/State/[facility] Co de Phone Number [facility] [place], [place] documented in this encounter Visit Diagnoses Diagnosis Pain Generalized pain documented in this encounter
--- OUTSIDE RECORDS SUMMARY | 2024-01-28 12:25 | XMS_ITS | Encounter Summary ---
[place] [address] Care Team Providers Care Outside Sales Associate Name Role Phone Yumiko Tavarez MD Primary Care Provider [phone] Reason for Referral * Diagnostic Test (Routine) - Closed Specialty Diagnoses / Procedures Referred By Contac t Referred To Contact Radiology Diagnoses Tremors of nervous system Procedures NM VALENTIN Scan Razia Mims MD [facility] [place] [address] [place] [address] Referral ID Status Reason Start Date Expiration Date V isits Requested Visits Authorized [id number] Closed Specialty Service Requested 12/18/2016 12/18/2017 3 3 Encounter Details Date Type Department Care Team (Late st Contact Info) Description 12/18/2016 1:30 PM EDT [place] [phone] Razia Mims MD [facility] [place] [address] Tremors of nervous system; Chorea; [...] Mims MD - 12/18/2016 1:30 PM EDT [facility] Movement Disorders Follow Up Patient Evaluation Date of service 12/18/2016 Referring provider Yumiko Tavarez MD [address] [place] [address] Cc: involuntary movements History of present illness [...] LAPAROSCOPIC ??? VERTEBROPLASTY Social History: Lives in [facility], she is retired from [employer] Family History Problem Relation Age of Onset [...] up in 1 month Razia Mims MD [facility] Neurology-Movement Disorders documented in this encounter Plan of Treatment Upcoming Encounters Date Type Department Care Team (Late st Contact Info) Description 02/04/2024 1:00 PM EST Office Visit Urology at [facility] [place] [address] Alta Caban APRN [facility] [place] [address] documented as of this encounter Results * [...] movements documented in this encounter Care Teams Outside Sales Associate Relationship Specialty Start Date End Date Yumiko Tavarez MD [address] [place] [address] PCP - General Family Medicine 07/07/16 documented as of this encounter
--- OUTSIDE RECORDS SUMMARY | 2024-01-28 12:25 | XMS_ITS | Encounter Summary ---
[place] [address] Care Team Providers Care Store Receiving Clerk Name Role Phone Yumiko Tavarez MD Primary Care Provider [phone] Reason for Referral * Diagnostic Test (Routine) - Closed Specialty Diagnoses / Procedures Referred By Contac t Referred To Contact Radiology Diagnoses Tremors of nervous system Procedures NM IRMA Scan Razia Mims MD [facility] [place] [address] [place] [address] Referral ID Status Reason Start Date Expiration Date V isits Requested Visits Authorized [id number] Closed Specialty Service Requested 12/18/2016 12/18/2017 3 3 Reason for Visit * Diagnostic Test (Routine) - Closed Specialty Diagnoses / Procedures Referred By Contac t Referred To Contact Radiology Diagnoses Tremors of nervous system Procedures NM IRMA Scan Razia Mims MD [facility] [place] [address] [place] [address] Referral ID Status Reason Start Date Expiration Date V isits Requested Visits Authorized [id number] Closed Specialty Service Requested 12/18/2016 12/18/2017 3 3 Encounter Details Date Type Department Care Team (Latest Contact Info) Description 01/10/2017 9:57 AM EST - 01/10/2017 2:31 PM EST Hospital Encounter [place] [address] Razia Mims MD [facility] [place] [address] Tremors of nervous system Discharge Disposition: Home [...] 1:00 PM EST Office [place] [phone] Alta Caban APRN [facility] [place] [address] documented as of this encounter Procedures Procedure [...] movements documented in this encounter Care Teams Store Receiving Clerk Relationship Specialty Start Date End Date Yumiko Tavarez MD [address] [place] [address] PCP - General Family Medicine 07/07/16 documented as of this encounter
--- OUTSIDE RECORDS SUMMARY | 2024-01-28 12:25 | XMS_ITS | Encounter Summary ---
Author Organization [facility] [place] [address] Care Team Providers Care Paver Layer Name Role Phone Serafin Glass MD Primary Care Provider + Encounter Details Date Type Department Care Team (Late st Contact Info) Description 03/17/2014 10:45 AM EST Office [place] [address] Marty Nick MD [facility] [place] [address] Chronic pain syndrome Discharge Disposition: Home Social [...] under the care of Natalia Monge at [facility] who took over prescribing her opioids, [...] is as mentioned. She lives alone in [place], [place]. She has no prior history of [...] was seen by Dr. Iain gray at [facility] at about the same time in [...] help, but I did discuss the functional mandaeism program with her and I discussed an [...] at that time either. I reviewed the [place] Prescription Monitoring Program database today and her [...] 1:00 PM EST Office [place] [address] Alta Caban APRN [facility] [place] [address] documented as of this encounter Visit Diagnoses Diagnosis Chronic pain syndrome documented in this encounter Care Teams Paver Layer Relationship Specialty Start Date End Date Serafin Glass MD [address] [place] [address] PCP - General 01/25/10 07/06/16 documented as of this encounter
--- OUTSIDE RECORDS SUMMARY | 2024-01-28 12:25 | XMS_ITS | Encounter Summary ---
Author Organization [facility] [place] [address] Care Team Providers Care Manager Interventional Name Role Phone Serafin Glass MD Primary Care Provider + Encounter Details Date Type Department Care Team (Late st Contact Info) Description 02/09/2011 Orders Only [place] [phone] Marty Nick MD [facility] [place] [address] Social History Tobacco Use Types Packs/Day Years [...] 1:00 PM EST Office [place] [phone] Alta Caban APRN [facility] [place] [address] documented as of this encounter Procedures Procedure [...] is a Non-reportable exam Marty Nick MD [facility] FILM LIBRARY ORDERABLES documented in this encounter Visit Diagnoses Not on filedocumented in this encounter Care Teams Manager Interventional Relationship Specialty Start Date End Date Serafin Glass MD [address] [place] [address] PCP - General 01/25/10 07/06/16 documented as of this encounter
--- OUTSIDE RECORDS SUMMARY | 2024-01-28 12:25 | XMS_ITS | Encounter Summary ---
Author Organization [facility] [place] [address] Care Team Providers Care Grouter Helper Name Role Phone Yumiko Tavarez MD Primary Care Provider [phone] Encounter Details Date Type Department Care Team (Late st Contact Info) Description 11/03/2016 [place] [address] Frank Jovel Social History Tobacco Use Types [...] 1:00 PM EST [place] [address] Alta Caban APRN [facility] [place] [place] [address] documented as of this encounter Visit Diagnoses Not on filedocumented in this encounter Care Teams Grouter Helper Relationship Specialty Start Date End Date Yumiko Tavarez MD [address] [place] [address] PCP - General Family Medicine 07/07/16 documented as of this encounter
--- OUTSIDE RECORDS SUMMARY | 2024-01-28 12:25 | XMS_ITS | Encounter Summary ---
Author Organization [facility] [place] [address] Care Team Providers Care Sports Complex Attendant Name Role Phone Serafin Glass MD Primary Care Provider + Encounter Details Date Type Department Care Team (Late st Contact Info) Description 11/08/2004 Orders [place] [phone] Marty Nick MD [facility] [place] [address] Social History Tobacco Use Types Packs/Day Years [...] 1:00 PM EST [place] [phone] Alta Caban APRN [facility] [place] [address] documented as of this encounter Procedures Procedure [...] is a Non-reportable exam Marty Nick MD [facility] FILM LIBRARY ORDERABLES documented in this encounter Visit Diagnoses Not on filedocumented in this encounter Care Teams Sports Complex Attendant Relationship Specialty Start Date End Date Serafin Glass MD [address] [place] [address] PCP - General 01/25/10 07/06/16 documented as of this encounter
--- OUTSIDE RECORDS SUMMARY | 2024-01-28 12:25 | XMS_ITS | Encounter Summary ---
Author Organization [facility] [place] [address] Care Team Providers Care High School English Teacher Name Role Phone Serafin Glass MD Primary Care Provider + Encounter Details Date Type Department Care Team (Late st Contact Info) Description 07/23/2012 Orders [place] [phone] Marty Nick MD [facility] [place] [address] Social History Tobacco Use Types Packs/Day Years [...] 1:00 PM EST [place] [phone] Alta Caban APRN [facility] [place] [address] documented as of this encounter Procedures Procedure [...] is a Non-reportable exam Marty Nick MD [facility] FILM LIBRARY ORDERABLES documented in this encounter Visit Diagnoses Not on filedocumented in this encounter Care Teams High School English Teacher Relationship Specialty Start Date End Date Serafin Glass MD [address] [place] [address] PCP - General 01/25/10 07/06/16 documented as of this encounter
--- OUTSIDE RECORDS SUMMARY | 2024-01-28 12:25 | XMS_ITS | Encounter Summary ---
Author Organization [facility] [place] [address] Care Team Providers Care Painting Machine Operator Name Role Phone Serafin Glass MD Primary Care Provider + Encounter Details Date Type Department Care Team (Late st Contact Info) Description 02/23/2011 Orders [place] [phone] Marty Nick MD [facility] [place] [place] [address] Social History Tobacco Use Types Packs/Day Years [...] 1:00 PM EST [place] [phone] Alta Caban APRN [facility] [place] [address] documented as of this encounter Procedures Procedure [...] is a Non-reportable exam Marty Nick MD [facility] FILM LIBRARY ORDERABLES documented in this encounter Visit Diagnoses Not on filedocumented in this encounter Care Teams Painting Machine Operator Relationship Specialty Start Date End Date Serafin Glass MD [address] [place] [address] PCP - General 01/25/10 07/06/16 documented as of this encounter
--- OUTSIDE RECORDS SUMMARY | 2024-01-28 12:25 | XMS_ITS | Encounter Summary ---
[place] [address] Care Team Providers Care Graduate Recruiter Name Role Phone Yumiko Tavarez MD Primary Care Provider [phone] Reason for Referral * Diagnostic Test (Routine) - Closed Specialty Diagnoses / Procedures Referred By Warren dennis Referred To Contact Radiology Diagnoses Chorea Procedures MRI Brain wo Contrast Razia Mims MD [facility] [place] [address] [place] [address] Referral ID Status Reason Start Date Expiration Date V isits Requested Visits Authorized [id number] Closed Specialty Service Requested 11/07/2016 02/05/2017 1 1 Reason for Visit * Diagnostic Test (Routine) - Closed Specialty Diagnoses / Procedures Referred By Warren dennis Referred To Contact Radiology Diagnoses Chorea Procedures MRI Brain wo Contrast Razia Mims MD [facility] [place] [address] [place] [address] Referral ID Status Reason Start Date Expiration Date V isits Requested Visits Authorized [id number] Closed Specialty Service Requested 11/07/2016 02/05/2017 1 1 Encounter Details Date Type Department Care Team (Latest Contact Info) Description 11/20/2016 1:54 PM EDT - 11/20/2016 11:59 PM EDT [place] [address] Razia Mims MD [facility] [place] [address] Chorea Discharge Disposition: Home Social History Tobacco [...] every 6 hours as needed for Pain. cholecalciferol, Vitamin D3, 50,000 unit Capsule Take 50,000 Units by mouth once a week. 01/03/2024 cyclobenzaprine (FLEXERIL) 10 mg Tablet Take 10 mg by mouth 3 times daily as needed for Muscle spasms. 12/18/2016 documented as of this encounter Plan of Treatment Upcoming Encounters Date Type Department Care Team (Late st Contact Info) Description 02/04/2024 1:00 PM EST [place] [address] Alta Caban APRN [facility] [place] [address] documented as of this encounter Procedures Procedure [...] choreas documented in this encounter Care Teams Graduate Recruiter Relationship Specialty Start Date End Date Yumiko Tavarez MD [address] [place] [address] PCP - General Family Medicine 07/07/16 documented as of this encounter
--- OUTSIDE RECORDS SUMMARY | 2024-01-28 12:25 | XMS_ITS | Encounter Summary ---
Author Organization [facility] [address] Care Team Providers Care Asbestos Worker Name Role Phone Serafin Glass MD Primary Care Provider + Encounter Details Date Type Department Care Team (Late st Contact Info) Description 01/12/2011 Orders Only [place] [phone] Marty Nick MD [facility] [place] [address] Social History Tobacco Use Types Packs/Day Years [...] 1:00 PM EST Office [place] [phone] Alta Caban APRN [facility] [place] [address] documented as of this encounter Procedures Procedure [...] is a Non-reportable exam Marty Nick MD [facility] FILM LIBRARY ORDERABLES documented in this encounter Visit Diagnoses Not on filedocumented in this encounter Care Teams Asbestos Worker Relationship Specialty Start Date End Date Serafin Glass MD [address] [place] [address] PCP - General 01/25/10 07/06/16 documented as of this encounter
--- OUTSIDE RECORDS SUMMARY | 2024-01-28 12:25 | XMS_ITS | Encounter Summary ---
Author Organization [facility] [place] [address] Care Team Providers Care Shoe Stitcher Odd Name Role Phone Serafin Glass MD Primary Care Provider + Encounter Details Date Type Department Care Team (Late st Contact Info) Description 12/05/2005 Orders [place] [phone] Marty Nick MD [facility] [place] [address] Social History Tobacco Use Types Packs/Day Years [...] 1:00 PM EST [place] [phone] Alta Caban APRN [facility] [place] [address] documented as of this encounter Procedures Procedure [...] is a Non-reportable exam Marty Nick MD [facility] FILM LIBRARY ORDERABLES documented in this encounter Visit Diagnoses Not on filedocumented in this encounter Care Teams Shoe Stitcher Odd Relationship Specialty Start Date End Date Serafin Glass MD [address] [place] [address] PCP - General 01/25/10 07/06/16 documented as of this encounter
--- OUTSIDE RECORDS SUMMARY | 2024-01-28 12:51 | XMS_ITS | Encounter Summary ---
Author Organization [facility] Address [address] [place] [address] Care Team Providers Care Door Hanger Name Role Phone Yumiko Tavarez MD Primary Care Provider [phone] Encounter Details Date Type Department Care Team (Late st Contact Info) Description 10/02/2023 Lab Requisition [facility] Pathology & Laboratory Medicine - [facility] [address] [place] [address] Outr Resulting Lab, Provider Social History Tobacco [...] Visit [facility] Neurology - S [address] [address] Alta Walter MD [address] [place] [address] Level 2 [place] [address] documented as of this encounter Procedures Procedure Name Priority Date/Time Associated Diagnosis Comments LYME AB Routine 10/01/2023 14:14 EDT documented in this encounter Results * LYME AB (10/01/2023 14:14 EDT) Lyme Ab Negative Negative 10/03/2023 10:54 EDT [facility] Blood VENOUS BLOOD / Unknown 10/01/2023 14:14 EDT 10/02/2023 17:18 EDT us Provider Outr Resulting Lab IMMUNOLOGY AND SEROL OGY ORDERABLES Final Result [facility] [address] [place] [address] documented in this encounter Visit Diagnoses Not on filedocumented in this encounter Care Teams Door Hanger Relationship Specialty Start Date End Date Yumiko Tavarez MD [address] [place] [address] PCP - General 12/29/19 documented as of this encounter
--- OUTSIDE RECORDS SUMMARY | 2024-01-28 12:51 | XMS_ITS | Clinical Summary ---
Author Organization [facility] Address [address] [place] [address] Care Team Providers Care Event Planning Intern Name Role Phone Yumiko Tavarez MD Primary Care Provider [phone] Allergies Active Allergy Reactions Criticality Noted Date [...] [facility] Neurology - S [place] [address] [place] [address] Alta Walter MD 1 [facility], Level 2 [place] [address] Health Maintenance Due Date Last Done Comments Hepatitis C Screen 1965 Lung Cancer Screening 1965 Pneumococcal Immunization (1 of 2 - PCV) 1969 COVID-19 Vaccine (2023-25 season) 2023 RSV Immunization ( o r 60+ Years) (1 - 1-dose 75+ series) 2038 Insurance [employer] Care Teams Event Planning Intern Relationship Specialty Start Date End Date Yumiko Tavarez MD [address] [place] [address] PCP - General 12/29/19
--- OUTSIDE RECORDS SUMMARY | 2024-01-28 12:51 | XMS_ITS | Encounter Summary ---
Author Organization [facility] Address [address] [place] [address] Care Team Providers Care Glass Presser Name Role Phone Yumiko Tavarez MD Primary Care Provider [phone] Reason for Visit * Reason Comments Follow-up Encounter Details Date Type Department Care Team (Late st Contact Info) Description 07/05/2023 13:00 EDT Telemedicine [facility] Neurology - S [address] [phone] Alta Walter MD [address] [place] [address] Level 2 [place] [phone] Tardive dyskinesia (Primary Dx); Functional neurological symptom [...] for this encounter. Phone: N/A Fax: Primary Sane Nurse: Yumiko Tavarez [address] [place] [phone] ASSESSMENT & PLAN / RECOMMENDATIONS 1. 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 Past medical, surgical, family, [...] visit was spent on the following activities: Patient/critical care nurse education Review of the pertinent information in [...] [facility] - S [place] [address] [place] [address] Alta Walter MD [address] [place] [address], Level 2 [place] [address] documented as of this encounter Visit Diagnoses Diagnosis Tardive dyskinesia- Primary Subacute dyskinesia due to drugs 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
--- OUTSIDE RECORDS SUMMARY | 2024-01-28 12:51 | XMS_ITS | Referral Summary ---
Author Organization [facility] Address [address] [place] [address] Care Team Providers Care Autocad Detailer Name Role Phone Yumiko Tavarez MD Primary Care Provider [phone] Allergies Active Allergy Reactions Criticality Noted Date [...] Visit [facility] Neurology - S [place] 1 [place], [place] [address] Alta Walter MD 1 [facility], Level 2 [place] [address] Insurance [employer] Care Teams Autocad Detailer Relationship Specialty Start Date End Date Yumiko Tavarez MD [address] [place] [address] PCP - General 12/29/19
--- OUTSIDE RECORDS SUMMARY | 2024-01-28 12:51 | XMS_ITS | Encounter Summary ---
Author Organization [facility] Address [address] [place] [address] Care Team Providers Care Data Recovery Planner Name Role Phone Yumiko Tavarez MD Primary Care Provider [phone] Reason for Visit * Reason Onset Date Comments Appointment Related 07/06/2023 Encounter Details Date Type Department Care Team (Late st Contact Info) Description 07/06/2023 Telephone [facility] Neurology - S [address] [phone] Alta Walter MD [address] [place] [address] Level 2 [place] [address] Appointment Related Social History Tobacco Use Types [...] [facility] Neurology - S [place] 1 [place] [address] Alta Walter MD 1 [facility], Level [address] [place] [address] documented as of this encounter Visit Diagnoses Not on filedocumented in this encounter Care Teams Data Recovery Planner Relationship Specialty Start Date End Date Yumiko Tavarez MD [address] [place] [address] PCP - General 12/29/19 documented as of this encounter
--- OUTSIDE RECORDS SUMMARY | 2024-01-28 12:51 | XMS_ITS | Encounter Summary ---
Author Organization [facility] Address [address] [place] [address] Care Team Providers Care Third Miller Name Role Phone Yumiko Tavarez MD Primary Care Provider [phone] Reason for Visit * Reason Onset Date Comments Appointment Related 08/02/2023 Encounter Details Date Type Department Care Team (Late st Contact Info) Description 08/02/2023 Telephone [facility] Neurology - S [address] [phone] Alta Walter MD [address] [place] [address] Level 2 [place] [address] Appointment Related Social History Tobacco Use Types [...] Office Visit [facility] Neurology - S [place] [address] [place] [address] Alta Walter MD [address] [place] [address], Level [address] [place] [address] documented as of this encounter Visit Diagnoses Not on filedocumented in this encounter Care Teams Third Miller Relationship Specialty Start Date End Date Yumiko Tavarez MD [address] [place] [address] PCP - General 12/29/19 documented as of this encounter
--- OUTSIDE RECORDS SUMMARY | 2024-01-28 12:52 | XMS_ITS | Encounter Summary ---
Author Organization [facility] Address [address] [place] [address] Care Team Providers Care Cow Washer Name Role Phone Yumiko Tavarez MD Primary Care Provider [phone] Reason for Visit * Reason Onset Date Comments Medication Management 10/06/2020 Encounter Details Date Type Department Care Team (Late st Contact Info) Description 10/06/2020 Telephone [facility] Neurology - S [address] [phone] Alta Walter MD [address] [place] [address] Level 2 [place] [phone] Medication Management Social History Tobacco Use Types [...] Orders * Telephone Encounter - Cisco Vaughn [facility] - 10/08/2020 1452 EDT Incoming call from Miguelina regarding Austedo. Patient has been taking 12mg PO BID for 2 weeks at this point, denies improvement and side effects. Documentation shows that a renewal of her 12mg PO BID Rx was sent to [facility] today. Additional Rx can be sent [...] for call back. Cisco Vaughn, Pharm.D. [facility] Ambulatory Pharmacist Clinician 10/08/2020 * Telephone [...] [facility] Neurology - S [place] 1 [place] [address] Alta Walter MD 1 [facility], Level [address] [place] [address] documented as of this encounter Visit Diagnoses Not on filedocumented in this encounter Discontinued Medications Medication Sig Discontinue Reason Start Date End Da te deutetrabenazine 12 mg tablet Take 1 Tablet by mouth 2 times daily. Reorder 10/08/2020 10/13/2020 deutetrabenazine (AUSTEDO) 6 mg tablet Take 6 mg by mouth every morning. Reorder 10/08/2020 10/13/2020 documented as of this encounter Care Teams Cow Washer Relationship Specialty Start Date End Date Yumiko Tavarez MD [address] [place] [address] PCP - General 12/29/19 documented as of this encounter
--- OUTSIDE RECORDS SUMMARY | 2024-01-28 12:52 | XMS_ITS | Encounter Summary ---
Author Organization [facility] Address [address] [place] [address] Care Team Providers Care Geology Professor Name Role Phone Yumiko Tavarez MD Primary Care Provider [phone] Reason for Visit * Reason Onset Date Comments Medication Management 02/10/2021 Encounter Details Date Type Department Care Team (Late st Contact Info) Description 02/10/2021 Telephone [facility] Neurology - S [address] [phone] Alta Walter MD [address] [place] [address] Level [address] [place] [phone] Medication Management Social History Tobacco Use Types [...] Office Visit [facility] Neurology - S [place] 1 [place] [address] Alta Walter MD 1 [facility], Level [address] [place] [address] documented as of this encounter Visit Diagnoses Diagnosis Tardive dyskinesia- Primary Subacute dyskinesia due to drugs documented in this encounter Care Teams Geology Professor Relationship Specialty Start Date End Date Yumiko Tavarez MD [address] [place] [address] PCP - General 12/29/19 documented as of this encounter
--- OUTSIDE RECORDS SUMMARY | 2024-01-28 12:52 | XMS_ITS | Encounter Summary ---
Author Organization [facility] Address [address] [place] [address] Care Team Providers Care Service Sprinkler Helper Name Role Phone Yumiko Tavarez MD Primary Care Provider [phone] Encounter Details Date Type Department Care Team (Late st Contact Info) Description 06/23/2021 Telephone [facility] Neurology - S [address] [address] Alta Walter MD [address] [place] [address] Level 2 [place] [address] Social History Tobacco Use Types [...] [facility] - S [address] [address] Alta Walter MD 1 [facility], Level [address] [place] [address] documented as of this encounter Visit Diagnoses Not on filedocumented in this encounter Care Teams Service Sprinkler Helper Relationship Specialty Start Date End Date Yumiko Tavarez MD [address] [place] [address] PCP - General 12/29/19 documented as of this encounter
--- OUTSIDE RECORDS SUMMARY | 2024-01-28 12:52 | XMS_ITS | Encounter Summary ---
Author Organization [facility] Address [address] [place] [address] Care Team Providers Care Station Gateman Name Role Phone Yumiko Tavarez MD Primary Care Provider [phone] Encounter Details Date Type Department Care Team (Late st Contact Info) Description 10/12/2022 Lab Requisition [facility] Pathology & Laboratory Medicine - [facility] [address] [place] [address] Outr Resulting Lab, Provider Social History Tobacco [...] [facility] Neurology - S [address] [address] Alta Walter MD [address] [place] [address] Level [address] [place] [address] documented as of this encounter Procedures Procedure Name Priority Date/Time Associated Diagnosis Comments CHLAMYDIA/N. GONORRHOEAE AMPLIFIED NUCLEIC ACID, THINPREP Routine 10/11/2022 13:45 EDT documented in this encounter Results * CHLAMYDIA/N. GONORRHOEAE AMPLIFIED RNA, THINPREP (10/11/2022 13:45 EDT) Neisseria gonorrhoeae Result Negative Negative 10/13/2022 14:53 EDT [facility] Chlamydia trachomatis Result Negative Negative 10/13/2022 14:53 EDT [facility] Papanicolaou smear specimen (specimen) CERVIX UTERI STRUCTURE / Unknown 10/11/2022 13:45 EDT 10/13/2022 10:17 EDT us Provider Outr Resulting Lab MICROBIOLOGY - GENER AL ORDERABLES Final Result Performing Organization Address City/State/[facility] Co de Phone Number [facility] [address] [place] [address] documented in this encounter Visit Diagnoses Not on filedocumented in this encounter Care Teams Station Gateman Relationship Specialty Start Date End Date Yumiko Tavarez MD [address] [place] [address] PCP - General 12/29/19 documented as of this encounter
--- OUTSIDE RECORDS SUMMARY | 2024-01-28 12:52 | XMS_ITS | Encounter Summary ---
Author Organization [facility] Address [address] [place] [address] Care Team Providers Care Watch Repair Technician Name Role Phone Yumiko Tavarez MD Primary Care Provider [phone] Reason for Visit * Reason Onset Date Comments Appointment Related 05/25/2021 Encounter Details Date Type Department Care Team (Late st Contact Info) Description 05/25/2021 Telephone [facility] Neurology - S [address] [phone] Alta Walter MD [address] [place] [address] Level [address] [place] [phone] Appointment Related Social History Tobacco Use Types [...] 02/13/2024 13:00 EST Office Visit [facility] Neurology - S [place] 1 [place] [address] Alta Walter MD 1 [facility], Level [address] [place] [address] documented as of this encounter Visit Diagnoses Not on filedocumented in this encounter Care Teams Watch Repair Technician Relationship Specialty Start Date End Date Yumiko Tavarez MD [address] [place] [address] PCP - General 12/29/19 documented as of this encounter
--- OUTSIDE RECORDS SUMMARY | 2024-01-28 12:52 | XMS_ITS | Encounter Summary ---
Author Organization [facility] Address [address] [place] [address] Care Team Providers Care Lamination Operator Name Role Phone Yumiko Tavarez MD Primary Care Provider [phone] Reason for Visit * Reason Onset Date Comments Medications Refill 06/18/2020 Encounter Details Date Type Department Care Team (Late st Contact Info) Description 06/18/[address] [facility] Neurology - S [address] [phone] Alta Walter MD [address] [place] [address] Level 2 [place] [address] Medications Refill Social History Tobacco [...] Encounter - Kane Parker RN - 06/21/2020 0206 EDT Spoke with Miguelina to inform her that I spoke with [facility] and provided them with the PA approval #. Informed her that if I hear anything else I will let her know. She verbalized understanding and will call me back if she hasn[facility]. * Telephone Encounter - Kane Parker RN - 06/21/2020 1607 EDT Spoke with [facility]- provided them with the PA approval #. They are adding this to her chart and sending to the PA team. * Telephone Encounter - Martha Hutchinson MA - 06/21/2020 1513 EDT Received a phone call from [facility] on the refill line. Asking if the PA had been received as this pt's plan require a PA for the Rx. [phone] * Telephone Encounter - Kane Parker RN - 06/18/2020 1731 EDT Spoke with Miguelina to inform her that I sent the prescription to [facility] on 06/16/20. Informed her thatI just spoke with [facility] and they did receive the prescription and reported that it is in process.Informed her that the unit support representative said that she will receive a call once it has been processed to schedule the delivery. I apologized to Miguelina for this inconvenience. She will call me back on Sunday if she still hasn't heard anything from [facility] * Telephone Encounter - Ghazala Bowen - 06/18/2020 1634 EDT Patient requesting to have tetrabenazine 12.5 mg tablet resent to [facility] [address] documented in this encounter Plan of Treatment Upcoming Encounters Date Type Department Care Team (Late st Contact Info) Description 02/13/2024 13:[address] [facility] Neurology - S [address] [address] Alta Walter MD [address] [place] [address], Level [address] [place] [address] documented as of this encounter Visit Diagnoses Not on filedocumented in this encounter Care Teams Lamination Operator Relationship Specialty Start Date End Date Yumiko Tavarez MD [address] [place] [address] PCP - General 12/29/19 documented as of this encounter
--- OUTSIDE RECORDS SUMMARY | 2024-01-28 12:52 | XMS_ITS | Encounter Summary ---
Author Organization [facility] Address [address] [place] [address] Care Team Providers Care Corn Picker Name Role Phone Yumiko Tavarez MD Primary Care Provider Reason for Visit * Reason Onset Date Comments Appointment Related 01/28/2021 Encounter Details Date Type Department Care Team (Late st Contact Info) Description 01/28/2021 Telephone [facility] Neurology - S [address] [id number] Alta Walter MD [address] [place] [address] Level [address] [place] [address] Appointment Related Social History Tobacco Use Types [...] for 05/19/21 at 3:30pm 4 mo [email or web address] invite to be sent documented in this encounter Plan of Treatment Upcoming Encounters Date Type Department Care Team (Late st Contact Info) Description 02/13/2024 13:00 EST Office Visit [facility] Neurology - S [address] [address] Alta Walter MD [address] [place] [address], Level [address] [place] [address] documented as of this encounter Visit Diagnoses Not on filedocumented in this encounter Care Teams Corn Picker Relationship Specialty Start Date End Date Yumiko Tavarez MD [address] [place] [address] PCP - General 12/29/19 documented as of this encounter
--- OUTSIDE RECORDS SUMMARY | 2024-01-28 12:52 | XMS_ITS | Encounter Summary ---
Author Organization [facility] Address [address] [place] [address] Care Team Providers Care Rebar Worker Name Role Phone Yumiko Tavarez MD Primary Care Provider [phone] Reason for Visit * Reason Onset Date Comments Medications Refill 08/25/2020 Encounter Details Date Type Department Care Team (Late st Contact Info) Description 08/25/2020 Telephone [facility] Neurology - S [address] [id number] Alta Walter MD [address] [place] [address] Level 2 [place] [address] Medications Refill Social History Tobacco [...] the prescription was in the works for [facility], I confirmed that it was being worked on as recently as last night Please send script to [facility] documented in this encounter Plan of Treatment Upcoming Encounters Date Type Department Care Team (Late st Contact Info) Description 02/13/2024 13:00 EST Office Visit [facility] Neurology - S [place] [address] [place] [address] Alta Walter MD 1 [facility], Level 2 [place] [address] documented as of this encounter Visit Diagnoses Not on filedocumented in this encounter Care Teams Rebar Worker Relationship Specialty Start Date End Date Yumiko Tavarez MD [address] [place] [address] PCP - General 12/29/19 documented as of this encounter
--- OUTSIDE RECORDS SUMMARY | 2024-01-28 12:52 | XMS_ITS | Encounter Summary ---
Author Organization [facility] Address [address] [place] [address] Care Team Providers Care Retail Wireless Sales Representative Name Role Phone Yumiko Tavarez MD Primary Care Provider [phone] Reason for Visit * Reason Onset Date Comments Medications Refill 10/05/2020 Encounter Details Date Type Department Care Team (Late st Contact Info) Description 10/05/2020 Refill [facility] Neurology - S [address] [address]32[address] Alta Walter MD [address] [place] [address], Level 2 [place] [phone] Medications Refill Social History Tobacco Use Types [...] Encounter - Orly Bertrand MA - 10/05/2020 2258 EDT Fax received from pharmacy requesting a [...] [facility] Neurology - S [address] [phone] Alta Walter MD [address] [place] [address], Level 2 [place] [phone] documented as of this encounter Visit Diagnoses Not on filedocumented in this encounter Discontinued Medications Medication Sig Discontinue Reason Start Date End Da te deutetrabenazine 12 mg tablet Take 1 Tablet by mouth every morning for 7 days, THEN 1 Tablet 2 times daily for 21 days. Reorder 09/10/2020 10/05/2020 documented as of this encounter Care Teams Retail Wireless Sales Representative Relationship Specialty Start Date End Date Yumiko Tavarez MD [address] [place] [address] PCP - General 12/29/19 documented as of this encounter
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
--- OUTSIDE RECORDS SUMMARY | 2024-01-28 12:52 | XMS_ITS | Encounter Summary ---
Author Organization [facility] Address [address] [place] [address] Care Team Providers Care Circulation Representative Name Role Phone Yumiko Tavarez MD Primary Care Provider [phone] Encounter Details Date Type Department Care Team (Latest Contact Info) Description 01/30/2023 Lab Requisition [facility] Pathology & Laboratory Medicine - [facility] [address] [place] [address] Yumiko Tavarez MD [address] [place] [phone] Encounter for gynecological examination (general) (routine) without [...] Info) Description 02/13/2024 13:00 EST Office Visit [facility] Neurology - S [place] [address] [place] [phone] Alta Walter MD [address] [place] [address], Level 2 [place] [phone] documented as of this encounter Procedures Procedure [...] 16, PCR Negative Negative 02/13/2023 15:28 EST [facility] HPV18/45 RNA (HPV18/45) Positive(A) Negative 02/13/2023 15:28 EST [facility] Pap Test CERVIX UTERI STRUCTURE / Unknown 01/26/2023 14:00 EST 02/07/2023 16:12 EST us Yumiko Tavarez MD MICROBIOLOGY - GENERAL ORDERAB LES Final Result [facility] [address] [place] [address] * (ABNORMAL) HUMAN PAPILLOMAVIRUS (HPV) DETECTION-HIGH RISK TYPES (01/26/2023 14:00 EST) HPV other High Risk types, PCR Positive( A) Negative 02/15/2023 14:38 EST [facility] Comment:E6 OR E7 mRNA from o ne or more types of HPV types 16,18,31,33,35,39,45,51,52,56,58,59,66, and 68 is detected by communications advisor mediated amplification. High and intermediate risk HPV types are associated with most squamous intraepithelial lesions and cervical cancers. Pap Test CERVIX UTERI STRUCTURE / Unknown 01/26/2023 14:00 EST 02/07/2023 16:12 EST us Yumiko Tavarez MD MICROBIOLOGY - GENERAL ORDERAB LES Final Result [facility] [address] [place] [address] * PAP TEST (01/26/2023 14:00 EST) Specimens A. Cervix and/or Endocervix , ThinPrep Imaging System with Manual Evaluation 02/15/2023 14:38 [facility] Specimen Adequacy Satisfactory for Evaluation - transformation zone component present 02/15/2023 14:38 [facility] General Categorization Negative for intraepithelial lesion or malignancy 02/15/2023 14:38 [facility] Descriptive Diagnosis Reactive cellular changes associated with inflammation present (includes repair). 02/15/2023 14:38 [facility] Attestation By the signature below, the attending physician certifies that they have personally conducted a gross and/or microscopic examination of the described specimens and rendered or confirmed the above diagnosis. 02/15/2023 14:38 [facility] at 1438 Clinical History SEE BELOW 02/16/20 14:38 [facility] HPV The result for the Human Papillomavirus (HPV) Detection-High Risk Types is Positive . E6 OR E7 mRNA from one or more types of HPV types 16,18,31,33,35,39 ,45,51,52,56,58,5 9,66, and 68 is detected by communications advisor mediated amplification. High and intermediate risk HPV types are associated with most squamous intraepithelial lesions and cervical cancers. Testing was performed on specimen [id number] and was resulted on 02/08/2023 1733 EST by ANTHONY, LAB INSTRUMENT RESULTS IN 02/15/2023 14:38 [facility] Genotyping 16 & 18/45 The results for the HPV Genotypes 16 and 18/45 are Negative for the HPV16 RNA and Positive for the HPV18/45 RNA (HPV18/45) . Testing was performed on specimen [id number] and was resulted on 02/13/2023 1528 EST by ANTHONY, LAB INSTRUMENT RESULTS IN 02/15/2023 14:38 EST [facility] Performing Lab [facility] 02/15/2023 14:38 EST [facility] Scanned Images 02/15/2023 14:38 EST [facility] Pap Test CERVIX UTERI STRUCTURE / Unknown 01/26/2023 14:00 EST 01/30/2023 16:15 EST us Yumiko Tavarez MD PATHOLOGY ORDERABLES Final Res ult [facility] [address] [place] [address] documented in this encounter Visit Diagnoses Diagnosis Encounter for gynecological examination (general) (routine) without abnormal findings Encounter for screening for malignant neoplasm of cervix Screening for malignant neoplasm of the cervix Encounter for general adult medical examination without abnormal findings Unspecified general medical examination documented in this encounter Care Teams Circulation Representative Relationship Specialty Start Date End Date Yumiko Tavarez MD [address] [place] [address] PCP - General 12/29/19 documented as of this encounter
--- OUTSIDE RECORDS SUMMARY | 2024-01-28 12:52 | XMS_ITS | Encounter Summary ---
Author Organization [facility] Address [address] [place] [address] Care Team Providers Care Product Accountant Name Role Phone Yumiko Tavarez MD Primary Care Provider [phone] Reason for Visit * Reason Onset Date Comments Prior Auth, Medication 06/02/2020 Encounter Details Date Type Department Care Team (Late st Contact Info) Description 06/02/2020 Telephone [facility] Neurology - S [address] [phone] Alta Walter MD [address] [place] [address], Level 2 [place] [address] Prior Auth, Medication Social History [...] to be sent to [facility] - phone [phone]. [employer] will not cover it * Telephone [...] tablet tid Approved: through 06/10/21 Authorization Number: [id number] Benefits Information or Other Notes: Required Pharmacy: [...] Request Received: 06/01/20 [place] Submission Date: 06/02/20 [facility] Mooney: n/a submitted via fax Submitted by: Za Phone: [phone]. documented in this encounter Plan of Treatment Upcoming Encounters Date Type Department Care Team (Late st Contact Info) Description 02/13/2024 13:00 EST Office Visit [facility] [place] [address] Alta Walter MD [address] [place] [address] Level 2 [place] [phone] documented as of this encounter Visit Diagnoses Not on filedocumented in this encounter Discontinued Medications Medication Sig Discontinue Reason Start Date End Da te tetrabenazine 12.5 mg tablet Take 1 Tab by mouth 3 times daily. Reorder 05/31/2020 06/15/2020 documented as of this encounter Care Teams Product Accountant Relationship Specialty Start Date End Date Yumiko Tavarez MD [address] [place] [address] PCP - General 12/29/19 documented as of this encounter
--- OUTSIDE RECORDS SUMMARY | 2024-01-28 12:52 | XMS_ITS | Encounter Summary ---
Author Organization [facility] Address [address] [place] [address] Care Team Providers Care Acoustical Installer Name Role Phone Yumiko Tavarez MD Primary Care Provider [phone] Reason for Visit * Reason Onset Date Comments Medications Refill 06/16/2022 Encounter Details Date Type Department Care Team (Late st Contact Info) Description 06/16/2022 Refill [facility] Neurology - S [address] [phone] Alta Walter MD [address] [place] [address], Level 2 [place] [phone] Medications Refill Social History Tobacco Use Types [...] Telephone Encounter - Eric Ivey - 06/22/2022 5283 EDT Miguelina calls back in and is [...] mg tablet Pharmacy (reconcile pharmacy list): [id number] - [place], [place] - [address] [place] [address] Is patient out of medication? Yes Picking up/mailing (location)/calling in/eprescribe? eprescribe 30 day supply/90 day supply? Meme Lemus 39:29 documented in this encounter Plan of Treatment Upcoming Encounters Date Type Department Care Team (Late st Contact Info) Description 02/13/2024 13:00 EST Office Visit [facility] Neurology - S [address] [address] Alta Walter MD 1 [facility], Level 2 [place] [address] documented as of this encounter Visit Diagnoses Not on filedocumented in this encounter Discontinued Medications Medication Sig Discontinue Reason Start Date End Da te clonazePAM (KLONOPIN) 1 mg tablet Take 1.5 Tablets by mouth 2 times daily AND 1 Tablet daily. Daily Max: 4 mg. Reorder 12/14/2021 06/16/2022 documented as of this encounter Care Teams Acoustical Installer Relationship Specialty Start Date End Date Yumiko Tavarez MD [address] [place] [address] PCP - General 12/29/19 documented as of this encounter
--- OUTSIDE RECORDS SUMMARY | 2024-01-28 12:52 | XMS_ITS | Encounter Summary ---
Author Organization [facility] Address [address] [place] [address] Care Team Providers Care Knit Goods Washer Name Role Phone Yumiko Tavarez MD Primary Care Provider [phone] Encounter Details Date Type Department Care Team (Late st Contact Info) Description 10/25/2020 Specialty Pharmacy [facility] [address] [place], [place] [phone] Blanca Vaughn, [facility] [address] [facility] 23 [place] [phone] Social History Tobacco Use Types Packs/Day Years [...] Office Visit [facility] Neurology - S [place] [address] [place] [phone] Alta Walter MD [address] [place] [address], Level 2 [place] [phone] documented as of this encounter Visit Diagnoses Not on filedocumented in this encounter Care Teams Knit Goods Washer Relationship Specialty Start Date End Date Yumiko Tavarez MD [address] [place] [address] PCP - General 12/29/19 documented as of this encounter
--- OUTSIDE RECORDS SUMMARY | 2024-01-28 12:52 | XMS_ITS | Encounter Summary ---
Author Organization [facility] Address [address] [place] [address] Care Team Providers Care Director Of Gift Planning Name Role Phone Yumiko Tavarez MD Primary Care Provider [phone] Reason for Visit * Reason Onset Date Comments Appointment Related 08/15/2021 Encounter Details Date Type Department Care Team (Late st Contact Info) Description 08/15/2021 Telephone [facility] Neurology - S [address] [phone] Alta Walter MD [address] [place] [address] Level 2 [place] [phone] Appointment Related Social History Tobacco Use Types [...] Info) Description 02/13/2024 13:00 EST Office Visit [facility] Neurology - S [address] [address] Alta Walter MD 1 [facility], Level [address] [place] [address] documented as of this encounter Visit Diagnoses Not on filedocumented in this encounter Care Teams Director Of Gift Planning Relationship Specialty Start Date End Date Yumiko Tavarez MD [address] [place] [address] PCP - General 12/29/19 documented as of this encounter
--- OUTSIDE RECORDS SUMMARY | 2024-01-28 12:52 | XMS_ITS | Encounter Summary ---
Author Organization [facility] Address [address] [place] [address] Care Team Providers Care Building Admin Name Role Phone Yumiko Tavarez MD Primary Care Provider [phone] Reason for Visit * Reason Onset Date Comments Medication Management 09/10/2020 [facility] In itiation/Dose Increase Encounter Details Date Type Department Care Team (Late st Contact Info) Description 09/10/2020 Refill [facility] Neurology - S [place] [address] [place], [place] [phone] Blanca Vaughn RPH [address] [facility] 23 [place] [address] Medication Management ([facility] Initiation/Dose [...] Encounter - Blanca Vaughn RPH - 09/10/2020 1264 EDT Telephone call to patient to discuss [...] not managed bythe [facility]. Blanca Vaughn, Pharm.D. [facility] Ambulatory Pharmacist Clinician 09/10/2020 documented in this encounter Plan of Treatment Upcoming Encounters Date Type Department Care Team (Late st Contact Info) Description 02/13/2024 13:00 EST Office Visit [facility] Neurology - S [address] [phone] Alta Walter MD [address] [place] [address] 2 [place] [phone] documented as of this encounter Visit Diagnoses Not on filedocumented in this encounter Discontinued Medications Medication Sig Discontinue Reason Start Date End Da te deutetrabenazine ([facility]) 6 mg tablet Take 6 mg by mouth daily for 7 days, THEN 6 mg 2 times daily for 21 days. Dose adjustment 08/26/2020 09/10/2020 documented as of this encounter Care Teams Building Admin Relationship Specialty Start Date End Date Yumiko Tavarez MD [address] [place] [address] PCP - General 12/29/19 documented as of this encounter
--- OUTSIDE RECORDS SUMMARY | 2024-01-28 12:52 | XMS_ITS | Encounter Summary ---
Author Organization [facility] Address [address] [place] [address] Care Team Providers Care Bearing Inspector Name Role Phone Yumiko Tavarez MD Primary Care Provider [phone] Encounter Details Date Type Department Care Team (Late st Contact Info) Description 03/28/2021 Specialty Pharmacy [facility] [address] [place], [place] [phone] Blanca Vaughn, [facility] [address] [facility] 23 [place] [address] Social History Tobacco Use Types [...] 02/13/2024 13:00 EST Office Visit [facility] Neurology - S [place] [address] [place] [phone] Alta Walter MD [address] [place] [address], Level [address] [place] [phone] documented as of this encounter Visit Diagnoses Not on filedocumented in this encounter Care Teams Bearing Inspector Relationship Specialty Start Date End Date Yumiko Tavarez MD [address] [place] [address] PCP - General 12/29/19 documented as of this encounter
--- OUTSIDE RECORDS SUMMARY | 2024-01-28 12:52 | XMS_ITS | Encounter Summary ---
Author Organization [facility] Address [address] [place] [address] Care Team Providers Care Health Coordinator Name Role Phone Yumiko Tavarez MD Primary Care Provider [phone] Reason for Visit * Reason Comments Other Encounter Details Date Type Department Care Team (Late st Contact Info) Description 09/03/2020 Refill [facility] Neurology - S [address] [phone] Alta Walter MD [address] [place] [phone] Other Social History Tobacco Use Types Packs/Day [...] 02/13/2024 13:00 EST Office Visit [facility] S [address] [phone] Alta Walter MD [address] [place] [phone] documented as of this encounter Visit Diagnoses Not on filedocumented in this encounter Care Teams Health Coordinator Relationship Specialty Start Date End Date Yumiko Tavarez MD [address] [place] [address] PCP - General 12/29/19 documented as of this encounter
--- OUTSIDE RECORDS SUMMARY | 2024-01-28 12:52 | XMS_ITS | Encounter Summary ---
Author Organization [facility] Address [address] [place] [address] Care Team Providers Care Ortho Tech Name Role Phone Yumiko Tavarez MD Primary Care Provider Reason for Visit * Reason Comments Follow-up Telemedicine Video Visit Encounter Details Date Type Department Care Team ([facility] st Contact Info) Description 05/19/2021 16:00 EDT Telemedicine [facility] Neurology - S [address] [id number] Alta Walter MD [address] [place] [address] Level 2 [place] [phone] Tardive dyskinesia (Primary Dx); Functional neurological symptom [...] visit Clinician Requesting Consultation: Yumiko Tavarez MD [address] [place] [phone] Fax: Primary Black Ash Burner Operator: Yumiko Tavarez [address] [place] [phone] ASSESSMENT & PLAN / RECOMMENDATIONS 1. Tardive dyskinesia 2. Functional neurological symptom disorder with abnormal movement Miguelina Morales is a 56 y.o. woman who returns to the [facility] Movement Disorders clinic for evaluation [...] y.o. woman who was referred to the [facility] Movement Disorders clinic for evaluation [...] difficulty - has dysphagia, referral sent to [facility] Urinary dysfunction - okay in the [...] naloxone (NARCAN) 4 mg/actuation nasal spray 1 [place] by nasal route as needed. ??? 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
--- OUTSIDE RECORDS SUMMARY | 2024-01-28 12:52 | XMS_ITS | Encounter Summary ---
Author Organization [facility] Address [address] [place] [address] Care Team Providers Care Pega Developer Name Role Phone Yumiko Tavarez MD Primary Care Provider [phone] Encounter Details Date Type Department Care Team (Late st Contact Info) Description 03/03/2021 Specialty Pharmacy [facility] [address] [place], [place] [id number] Blanca Vaughn, [facility] [address] [facility] [address] [place] [address] Social History Tobacco Use Types [...] Visit [facility] Neurology - S [place] [address] [place] [address] [id number] Alta Walter MD [address] [place] [address], Level 2 [place] [address] documented as of this encounter Visit Diagnoses Not on filedocumented in this encounter Care Teams Pega Developer Relationship Specialty Start Date End Date Yumiko Tavarez MD [address] [place] [address] PCP - General 12/29/19 documented as of this encounter
--- OUTSIDE RECORDS SUMMARY | 2024-01-28 12:52 | XMS_ITS | Encounter Summary ---
Author Organization [facility] Address [address] [place] [address] Care Team Providers Care Local Area Network Administrator Name Role Phone Yumiko Tavarez MD Primary Care Provider [phone] Reason for Visit * Reason Onset Date Comments Appointment Related 11/18/2020 Encounter Details Date Type Department Care Team (Late st Contact Info) Description 11/18/2020 Telephone [facility] Neurology - S [address] [phone] Alta Walter MD [address] [place] [address] Level 2 [place] [address] Appointment Related Social History Tobacco [...] Telephone Encounter - Meme Lemus - 11/18/2020 7826 EDT Spoke to Miguelina, cancelled her 4 MO FUR On-SITE appt with Dr. Thakkar on Sunday11/22/2020 at 2:45 PM and rescheduled it to Sunday01/24/2021 at 4:15 PM. documented in this encounter Plan of Treatment Upcoming Encounters Date Type Department Care Team (Late st Contact Info) Description 02/13/2024 13:00 EST Office Visit [facility] Neurology - S [address] [address] Alta Walter MD [address] [place] [address], Level 2 [place] [address] documented as of this encounter Visit Diagnoses Not on filedocumented in this encounter Care Teams Local Area Network Administrator Relationship Specialty Start Date End Date Yumiko Tavarez MD [address] [place] [address] PCP - General 12/29/19 documented as of this encounter
--- OUTSIDE RECORDS SUMMARY | 2024-01-28 12:52 | XMS_ITS | Encounter Summary ---
Author Organization [facility] Address [address] [place] [address] Care Team Providers Care Specialist Physician Name Role Phone Yumiko Tavarez MD Primary Care Provider [phone] Reason for Visit * Reason Onset Date Comments Medication Management 09/16/2020 Encounter Details Date Type Department Care Team (Late st Contact Info) Description 09/16/2020 Telephone [facility] Neurology - S [address] [phone] Alta Walter MD [address] [place] [address] Level 2 [place] [phone] Medication Management Social History Tobacco Use Types [...] Encounter - Cristel Doss RN - 09/16/2020 4301 EDT Spoke with Yuriy pharmacist at [facility] [...] where in therapy this patient is. Ref: [id number] documented in this encounter Plan of Treatment Upcoming Encounters Date Type Department Care Team (Late st Contact Info) Description 02/13/2024 13:00 EST Office Visit [facility] Neurology - S [address] [address]77[address] Alta Walter MD [address] [place] [address], Level 2 [place] [phone] documented as of this encounter Visit Diagnoses Not on filedocumented in this encounter Care Teams Specialist Physician Relationship Specialty Start Date End Date Yumiko Tavarez MD [address] [place] [address] PCP - General 12/29/19 documented as of this encounter
--- OUTSIDE RECORDS SUMMARY | 2024-01-28 12:52 | XMS_ITS | Encounter Summary ---
Author Organization [facility] Address [address] [place] [address] Care Team Providers Care Senior Field Engineer Name Role Phone Yumiko Tavarez MD Primary Care Provider [phone] Reason for Visit * Reason Onset Date Comments Appointment Related 12/13/2022 Encounter Details Date Type Department Care Team (Late st Contact Info) Description 12/13/2022 Telephone [facility] Neurology - S [address] [phone] Alta Walter MD [address] [place] [address] Level 2 [place] [phone] Appointment Related Social History Tobacco Use Types [...] Visit [facility] Neurology - S [address] [address] Alta Walter MD [address] [place] [address] Level 2 [place] [address] documented as of this encounter Visit Diagnoses Not on filedocumented in this encounter Care Teams Senior Field Engineer Relationship Specialty Start Date End Date Yumiko Tavarez MD [address] [place] [address] PCP - General 12/29/19 documented as of this encounter
--- OUTSIDE RECORDS SUMMARY | 2024-01-28 12:52 | XMS_ITS | Encounter Summary ---
Author Organization [facility] Address [address] [place] [address] Care Team Providers Care Filler Shredding Machine Loader Name Role Phone Yumiko Tavarez MD Primary Care Provider [phone] Reason for Visit * Reason Onset Date Comments Appointment Related 06/09/2020 Encounter Details Date Type Department Care Team (Late st Contact Info) Description 06/09/2020 Telephone [facility] Neurology - S [address] [phone] Cat Dorantes MD [address] [place] [address] Level 2 [place] [phone] Appointment Related Social History Tobacco Use Types [...] Dr Dorantes to Sun07/06/20 at 1030. [place]: [phone] [email or web address] Meeting ID: [id number] Password: [email or web address] * Telephone Encounter - Meme Lemus - 06/15/2020 1551 EDT Outreached Miguelina, rescheduled the cancelled appt from 06/15/2020 at 8:[address] Dorantes. New NPV TVD EXT appt is on Sunday06/28/2020 at 9:[address] Dorantes [place]: [phone] Email:[email or web address] Meeting ID: [id number] Password: [email or web address] * Telephone Encounter - Monae Chavez - 06/15/2020 0810 EDT Patient calling to cancel the 8:45 appointment today with as she is ill. She will call back and reschedule when she feels better. * Telephone Encounter - Meme Lemus - 06/09/2020 1232 EDT Outreached Miguelina, scheduled an NPV TVD EXT appt with Dr. Dorantes on Sunday06/15/2020 at 8:45 AM. [place]: [phone] EMail: [email or web address] Meeting ID: [phone] Password: [email or web address] documented in this encounter Plan of Treatment Upcoming Encounters Date Type Department Care Team (Late st Contact Info) Description 02/13/2024 13:00 EST Office Visit [facility] Neurology - S [address] [address] Alta Walter MD [address] [place] [address] 2 [place] [address] documented as of this encounter Visit Diagnoses Not on filedocumented in this encounter Care Teams Filler Shredding Machine Loader Relationship Specialty Start Date End Date Yumiko Tavarez MD [address] [place] [address] PCP - General 12/29/19 documented as of this encounter
--- OUTSIDE RECORDS SUMMARY | 2024-01-28 12:52 | XMS_ITS | Encounter Summary ---
Author Organization [facility] Address [address] [place] [address] Care Team Providers Care Electronics Tech Name Role Phone Yumiko Tavarez MD Primary Care Provider [phone] Reason for Visit * Reason Onset Date Comments Medication Management 08/15/2021 Encounter Details Date Type Department Care Team (Late st Contact Info) Description 08/15/2021 Telephone [facility] Neurology - S [address] [phone] Alta Walter MD [address] [place] [address] Level 2 [place] [phone] Medication Management Social History Tobacco Use Types [...] 1248 EDT TC to patient. She did picker her new prescription and was scheduled for a televideo visit with Dr. Thakkar. No other questions or concerns. * Telephone Encounter - Carline Trimble RN - 08/15/2021 1426 EDT Images from the original note were not included. Alta Thakkar MD Neuro Move Rod Mill Operator; Meme Lemus 1 hour ago (12:45) [...] Description 02/13/2024 13:00 EST Office Visit [facility] Neurology - S [place] [address] [place] [address] Alta Walter MD [address] [place] [address], Level [address] [place] [address] documented as of this encounter Visit Diagnoses Not on filedocumented in this encounter Discontinued Medications Medication Sig Discontinue Reason Start Date End Da te clonazePAM (KLONOPIN) 0.5 mg tablet Take 2 tablets in the morning and 1 tablet at night x 1 week, then 2 tablets twice daily thereafter Dose adjustment 06/23/2021 08/15/2021 documented as of this encounter Care Teams Electronics Tech Relationship Specialty Start Date End Date Yumiko Tavarez MD [address] [place] [address] PCP - General 12/29/19 documented as of this encounter
--- OUTSIDE RECORDS SUMMARY | 2024-01-28 12:52 | XMS_ITS | Encounter Summary ---
Author Organization [facility] Address [address] [place] [address] Care Team Providers Care Glass Artist Name Role Phone Yumiko Tavarez MD Primary Care Provider [phone] Reason for Visit * Reason Onset Date Comments Appointment Related 02/28/2022 Encounter Details Date Type Department Care Team (Late st Contact Info) Description 02/28/2022 Telephone [facility] Neurology - S [address] [phone] Alta Walter MD [address] [place] [address] Level 2 [place] [phone] Appointment Related Social History Tobacco Use Types [...] for 04/13/2022 at 13:00PM TVD FUR 4M [email or web address] [phone] Zoom scheduling needed documented in this encounter Plan of Treatment Upcoming Encounters Date Type Department Care Team (Late st Contact Info) Description 02/13/2024 13:00 EST Office Visit [facility] Neurology - S [place] [address] [place] [address] Alta Walter MD [address] [place] [address], Level 2 [place] [address] documented as of this encounter Visit Diagnoses Not on filedocumented in this encounter Care Teams Glass Artist Relationship Specialty Start Date End Date Yumiko Tavarez MD [address] [place] [address] PCP - General 12/29/19 documented as of this encounter
--- OUTSIDE RECORDS SUMMARY | 2024-01-28 12:52 | XMS_ITS | Encounter Summary ---
Author Organization [facility] Address [address] [place] [address] Care Team Providers Care Furnace Keeper Name Role Phone Yumiko Tavarez MD Primary Care Provider [phone] Reason for Visit * Reason Onset Date Comments Appointment Related 08/20/2020 Encounter Details Date Type Department Care Team ([facility] Contact Info) Description 08/20/2020 Telephone [facility] Neurology - S [address] [phone] Alta Walter MD [address] [place] [address] Level 2 [place] [phone] Appointment Related Social History Tobacco Use Types [...] 02/13/2024 13:00 EST Office Visit [facility] Neurology - S [place] 1 [place] [address] Alta Walter MD 1 [facility], Level [address] [place] [address] documented as of this encounter Visit Diagnoses Not on filedocumented in this encounter Care Teams Furnace Keeper Relationship Specialty Start Date End Date Yumiko Tavarez MD [address] [place] [address] PCP - General 12/29/19 documented as of this encounter
--- OUTSIDE RECORDS SUMMARY | 2024-01-28 12:52 | XMS_ITS | Encounter Summary ---
Author Organization [facility] Address [address] [place] [address] Care Team Providers Care Membership Assistant Name Role Phone Yumiko Tavarez MD Primary Care Provider [phone] Reason for Visit * Reason Comments Follow-up Telemedicine Video Visit Encounter Details Date Type Department Care Team ([facility] st Contact Info) Description 07/22/2020 10:00 EDT Telemedicine [facility] Neurology - S [address] [phone] Alta Walter MD [address] [place] [address] Level 2 [place] [address] Tardive dyskinesia (Primary Dx); Tremor; [...] Clinician Requesting Consultation: Yumiko Tavarez MD [address] [place] [phone] Fax: Primary Harness Mender: Yumiko Tavarez [address] [facility] [address] ASSESSMENT & PLAN / RECOMMENDATIONS 1. Tardive dyskinesia 2. Tremor 3. Peripheral polyneuropathy Miguelina Morales is a 55 y.o. woman who returns to the [facility] Movement Disorders clinic for evaluation [...] able to review both the previous DatScan ([facility]) in comparison to the more recent one ([facility]). There is a clear difference [...] y.o. woman who was referred to the [facility] Movement Disorders clinic for evaluation [...] - has dysphagia, referral sent to [facility] Current Medications: Outpatient Medications Marked as Taking [...] naloxone (NARCAN) 4 mg/actuation nasal spray 1 [place] by nasal route as needed. ??? 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 If there are any questions, please contact the office at [phone]. Alta Thakkar MD Attending Physician, Movement Disorders Department of Neurology documented in this encounter Plan of Treatment Upcoming Encounters Date Type Department Care Team (Late st Contact Info) Description 02/13/2024 13:00 EST Office Visit [facility] Neurology - S [place] 1 [place], [place] [address] Alta Walter MD [address] [place] [address] Level [address] [place] [address] documented as of this encounter Visit Diagnoses Diagnosis Tardive dyskinesia- Primary Subacute dyskinesia due to drugs Tremor Abnormal involuntary movements Peripheral polyneuropathy Unspecified hereditary and idiopathic peripheral neuropathy documented in this encounter Care Teams Membership Assistant Relationship Specialty Start Date End Date Yumiko Tavarez MD [address] [place] [address] PCP - General 12/29/19 documented as of this encounter
--- OUTSIDE RECORDS SUMMARY | 2024-01-28 12:52 | XMS_ITS | Encounter Summary ---
Author Organization [facility] Address [address] [place] [address] Care Team Providers Care Director Of Restaurant Operations Name Role Phone Yumiko Tavarez MD Primary Care Provider [phone] Reason for Visit * Reason Onset Date Comments Medication Management 09/30/2021 Encounter Details Date Type Department Care Team (Late st Contact Info) Description 09/30/2021 Telephone [facility] Neurology - S [address] [phone] Alta Walter MD [address] [place] [address] Level 2 [place] [address] Medication Management Social History Tobacco Use Types [...] Refill will be needed by October 14. [email or web address] message to Miguelina requesting she request the refill next Sunday. * Telephone Encounter - Alta Laughlin RN - 10/04/2021 1324 EDT Per separate lingoking GmbHt message from Miguelina 10/03/21: Alta, you asked how many Klonopin I have left. I counted and there is [address] Del Valle writes new script, could you please have her send it to [facility] in [place]. Also if you could just shoot me [...] 0.5mg mid-day VPMS Inquiry needed? yes The [place] Prescription Monitoring System query has been completed [...] the dosage hs changed. She uses the [facility] Please call to advise. Thank you documented in this encounter Plan of Treatment Upcoming Encounters Date Type Department Care Team (Late st Contact Info) Description 02/13/2024 13:00 EST Office Visit [facility] Neurology - S [address] [address] Alta Walter MD [address] [place] [address], Level 2 [place] [address] documented as of this encounter Visit Diagnoses Not on filedocumented in this encounter Discontinued Medications Medication Sig Discontinue Reason Start Date End Da te clonazePAM (KLONOPIN) 1 mg tablet Take 1.5 Tablets by mouth 2 times daily. Daily Max: 3 mg Reorder 09/16/2021 10/12/2021 documented as of this encounter Care Teams Director Of Restaurant Operations Relationship Specialty Start Date End Date Yumiko Tavarez MD [address] [place] [address] PCP - General 12/29/19 documented as of this encounter
--- OUTSIDE RECORDS SUMMARY | 2024-01-28 12:52 | XMS_ITS | Encounter Summary ---
Author Organization [facility] Address [address] [place] [address] Care Team Providers Care Bus Boy Name Role Phone Yumiko Tvaarez MD Primary Care Provider [phone] Reason for Visit * Reason Comments Follow-up Telemedicine Video Visit Encounter Details Date Type Department Care Team ([facility] st Contact Info) Description 01/20/2021 16:00 EST Telemedicine [facility] Neurology - S [address] [phone] Alta Walter MD [address] [place] [address] Level 2 [place] [address] Tardive dyskinesia (Primary Dx); Functional [...] visit Clinician Requesting Consultation: Yumiko Tavarez MD [address] [place] [phone] Fax: Primary Gear Tester: Yumiko Tavarez [address] [place] [phone] ASSESSMENT & PLAN / RECOMMENDATIONS 1. Tardive dyskinesia 2. Functional neurological symptom disorder with abnormal movement Miguelina Morales is a 55 y.o. woman who returns to the [place] [...] suspect the leg andarm movements may be traffic representative of a functional neurological disorder. # [...] difficulty - has dysphagia, referral sent to [facility] Urinary dysfunction - okay in the [...] naloxone (NARCAN) 4 mg/actuation nasal spray 1 [place] by nasal route as needed. ??? 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 Past medical, surgical, family, [...] activities: Personal review of available imaging Patient/child adolescent care education Scanned health information available from the referring and/or primary provider(s) Review of the pertinent information in the electronic health record Care plan formulation Supportive counseling Alta Thakkar MD Attending Physician, Movement Disorders Department of Neurology documented in this encounter Plan of Treatment Upcoming Encounters Date Type Department Care Team (Late st Contact Info) Description 02/13/2024 13:00 EST Office Visit [facility] Neurology - S [address] [address] Alta Walter MD [address] [place] [address], Level 2 [place] [address] documented as of this encounter Visit Diagnoses Diagnosis Tardive dyskinesia- Primary Subacute dyskinesia due to drugs 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
--- OUTSIDE RECORDS SUMMARY | 2024-01-28 12:52 | XMS_ITS | Encounter Summary ---
Author Organization [facility] Address [address] [place] [address] Care Team Providers Care Deli Associate Name Role Phone Yumiko Tavarez MD Primary Care Provider [phone] Reason for Visit * Reason Onset Date Comments Prior Auth, Medication 08/10/2020 Ingrezza 40 & 80mg Prior Auth, Medication 08/10/2020 Austedo 4 8mg/day Encounter Details Date Type Department Care Team (Late st Contact Info) Description 08/10/2020 Telephone [facility] Neurology - S [place] [address] [place] [phone] Alta Walter MD [address] [place] [address], Level 2 [place] [address] Prior Auth, Medication (Ingrezza 40 [...] 6mg Approved: 08/19/20 through 08/18/21 Authorization Number: [id number] Required Pharmacy: [facility] Preferred Pharmacy: [facility] Prior Authorization Submission Process Medication: Austedo 6mg Insurance: [employer]efits Date PA Request Received: 08/11/20 PA Submission Date: 08/18/20 EOC ID: [id number] Submitted by: Gerry Prior Authorization Approval Medication: Austedo 12mg Approved: 08/13/20 through 08/12/21 Authorization Number: [id number] Required Pharmacy: [facility] Preferred Pharmacy: [facility] Prior Authorization Submission Process Medication: Austedo 12mg - 48mg/day Insurance[facility] Date PA Request Received: 08/11/20 PA Submission Date: 08/11/20 EOC ID: [id number] Submitted by: Gerry documented in this encounter Plan of Treatment Upcoming Encounters Date Type Department Care Team (Late st Contact Info) Description 02/13/2024 13:00 EST Office Visit [facility] Neurology - S [place] 1 [place], [place] [address] Alta Walter MD [address] [place] [address], Level 2 [place] [address] documented as of this encounter Visit Diagnoses Not on filedocumented in this encounter Discontinued Medications Medication Sig Discontinue Reason Start Date End Da te tetrabenazine 25 mg tablet tablet Take 1.5 tablets 3 times daily for 2 weeks, then increase to 2 tablets three times daily Alternate therapy 07/27/2020 08/26/2020 documented as of this encounter Care Teams Deli Associate Relationship Specialty Start Date End Date Yumiko Tavarez MD [address] [place] [address] PCP - General 12/29/19 documented as of this encounter
--- OUTSIDE RECORDS SUMMARY | 2024-01-28 12:52 | XMS_ITS | Encounter Summary ---
Author Organization [facility] Address [address] [place] [address] Care Team Providers Care Obstetrics Gynecology Md Name Role Phone Yumiko Tavarez MD Primary Care Provider [phone] Reason for Visit * Reason Onset Date Comments Appointment Related 12/23/2020 Encounter Details Date Type Department Care Team (Late st Contact Info) Description 12/23/2020 Telephone [facility] Neurology - S [address] [id number] Alta Walter MD [address] [place] [address] Level 2 [place] [phone] Appointment Related Social History Tobacco Use Types [...] Info) Description 02/13/2024 13:00 EST Office Visit [facility] Neurology - [address] [place] [address] [place] [address] Alta Walter MD 1 [facility], Level 2 [place] [phone] documented as of this encounter Visit Diagnoses Not on filedocumented in this encounter Care Teams Obstetrics Gynecology Md Relationship Specialty Start Date End Date Yumiko Tavarez MD [address] [place] [address] PCP - General 12/29/19 documented as of this encounter
--- OUTSIDE RECORDS SUMMARY | 2024-01-28 12:52 | XMS_ITS | Encounter Summary ---
Author Organization [facility] Address [address] [place] [address] Care Team Providers Care Staffing Program Manager Name Role Phone Yumiko Tavarez MD Primary Care Provider [phone] Reason for Visit * Reason Comments Follow-up Telemedicine Video Visit Encounter Details Date Type Department Care Team ([facility] st Contact Info) Description 09/29/2021 13:30 EDT Telemedicine [facility] Neurology - S [address] [address] Alta Walter MD [address] [place] [address] Level 2 [place] [address] Tardive dyskinesia (Primary Dx); Functional [...] visit Clinician Requesting Consultation: Yumiko Tavarez MD [address] [place] [phone] Fax: Primary Collar Padder Blindstitch: Yumiko Tavarez 26 [facility] [address] ASSESSMENT & PLAN / RECOMMENDATIONS 1. Tardive dyskinesia 2. Functional neurological symptom disorder with abnormal movement 3. Tremor Miguelina Morales is a 56 y.o. woman who returns to the [place] [...] I offered her a referral to the [facility] clinical intermodal owner operator truck driver assessment program. She is concerned that [...] difficulty - has dysphagia, referral sent to [facility] Urinary dysfunction - okay in the [...] naloxone (NARCAN) 4 mg/actuation nasal spray 1 [place] by nasal route as needed. ??? 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 Past medical, surgical, family, [...] following activities: Personal review of available imaging Patient/primary care nurse practitioner education Scanned health information available from the referring and/or primary provider(s) Review of the pertinent information in the electronic health record Care plan formulation Supportive counseling Alta Thakkar MD Attending Physician, Movement Disorders Department of Neurology documented in this encounter Plan of Treatment Upcoming Encounters Date Type Department Care Team (Late st Contact Info) Description 02/13/2024 13:00 EST Office Visit [facility] Neurology - S [address] [id number] Alta Walter MD [address] [place] [address] 2 [place] [address] documented as of this encounter Visit Diagnoses Diagnosis Tardive dyskinesia- Primary Subacute dyskinesia due to drugs 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
--- OUTSIDE RECORDS SUMMARY | 2024-01-28 12:52 | XMS_ITS | Encounter Summary ---
Author Organization [facility] Address [address] [place] [address] Care Team Providers Care Hydraulic Press Servicer Name Role Phone Yumiko Tavarez MD Primary Care Provider [phone] Reason for Visit * Reason Onset Date Comments Medication Management 11/18/2020 Encounter Details Date Type Department Care Team (Late st Contact Info) Description 11/18/2020 Telephone [facility] Neurology - S [address] [id number] Alta Walter MD [address] [place] [address] Level 2 [place] [address] Medication Management Social History Tobacco [...] Telephone Encounter - Meme Lemus - 11/18/2020 7889 EDT Spoke to Miguelina she states the [...] [facility] Neurology - S [address] [address] Alta Walter MD [address] [place] [address], Level 2 [place] [address] documented as of this encounter Visit Diagnoses Not on filedocumented in this encounter Care Teams Hydraulic Press Servicer Relationship Specialty Start Date End Date Yumiko Tavarez MD [address] [place] [address] PCP - General 12/29/19 documented as of this encounter
--- OUTSIDE RECORDS SUMMARY | 2024-01-28 12:52 | XMS_ITS | Encounter Summary ---
Author Organization [facility] Address [address] [place] [address] Care Team Providers Care Lead Relay Tester Name Role Phone Yumiko Tavarez MD Primary Care Provider [phone] Reason for Visit * Reason Onset Date Comments Medications Refill 09/16/2021 Encounter Details Date Type Department Care Team (Late st Contact Info) Description 09/16/2021 Refill [facility] Neurology - S [address] 5055[address] Alta Walter MD [address] [place] [address], Level 2 [place] [phone] Medications Refill Social History Tobacco Use Types [...] Rx written: 08/15/2021 VPMS Inquiry needed? The [place] Prescription Monitoring System query has been completed per the following requirement(s): Annual Verification. If yes, date of last fill: 08/16/2021 Documentation Reviewed, prescription pended to provider for review & signature. RX pended to provider, previous pharmacy is now closed and unable to access refills. * Telephone Encounter - Angelita Laraissa - 09/16/2021 1049 EDT Miguelina called in this morning needing a refill called in for her. Her normal pharmacy is closed and she is out of medication. The medication is for, Medication Refill Medication(s) Requested: clonazePAM (KLONOPIN) 1 mg tablet Pharmacy (reconcile pharmacy list): [id number] - [place], [place] - [address] [place] [address] Is patient out of medication? Yes Picking up/mailing (location)/calling in/eprescribe? E-prescribe 30 day supply/90 day supply? 90 day Please call the patient with any questions. Thank you documented in this encounter Plan of Treatment Upcoming Encounters Date Type Department Care Team (Late st Contact Info) Description 02/13/2024 13:00 EST Office Visit [facility] Neurology - S [address] [address]271 Alta Walter MD [address] [place] [address], Level 2 [place] [phone] documented as of this encounter Visit Diagnoses Not on filedocumented in this encounter Discontinued Medications Medication Sig Discontinue Reason Start Date End Da te clonazePAM (KLONOPIN) 1 mg tablet Take 1.5 Tablets by mouth 2 times daily. Daily Max: 3 mg Reorder 08/15/2021 09/16/2021 documented as of this encounter Care Teams Lead Relay Tester Relationship Specialty Start Date End Date Yumiko Tavarez MD [address] [place] [address] PCP - General 12/29/19 documented as of this encounter
--- OUTSIDE RECORDS SUMMARY | 2024-01-28 12:52 | XMS_ITS | Encounter Summary ---
Author Organization [facility] Address [address] [place] [address] Care Team Providers Care Seat Maker Name Role Phone Yumiko Tavarez MD Primary Care Provider [phone] Reason for Visit * Reason Onset Date Comments Medication Management 07/21/2020 Encounter Details Date Type Department Care Team (Late st Contact Info) Description 07/21/2020 Telephone [facility] Neurology - S [address] [phone] Alta Walter MD [address] [place] [address] Level 2 [place] [phone] Medication Management Social History Tobacco Use Types [...] RN - 07/21/2020 1602 EDT TC to [facility], spoke to [facility] Provided verbal order for tetrabenazine 25 mg tablets; verbal order confirmed. * Telephone Encounter - Orly Bertrand MA - 07/21/2020 2422 EDT TC received from pharmacist at [facility] requesting a call back regarding Tetrabenazine, they have a current order for 12.5 mg TID, per patient message with Dr. Thakkar on 07/16/2020, was instructed to increase medication to 25 mg TID. [facility] verbal order [phone] documented in this encounter Plan of Treatment Upcoming Encounters Date Type Department Care Team (Late st Contact Info) Description 02/13/2024 13:00 EST Office Visit [facility] Neurology - S [address] [address] Alta Walter MD [address] [place] [address] Level 2 [place] [phone] documented as of this encounter Visit Diagnoses Not on filedocumented in this encounter Discontinued Medications Medication Sig Discontinue Reason Start Date End Da te tetrabenazine 12.5 mg tablet Take 1 Tab by mouth 3 times daily. Dose adjustment 06/16/2020 07/21/2020 documented as of this encounter Care Teams Seat Maker Relationship Specialty Start Date End Date Yumiko Tavarez MD [address] [place] [address] PCP - General 12/29/19 documented as of this encounter
--- OUTSIDE RECORDS SUMMARY | 2024-01-28 12:52 | XMS_ITS | Encounter Summary ---
Author Organization [facility] Address [address] [place] [address] Care Team Providers Care Sharepoint Manager Name Role Phone Yumiko Tavarez MD Primary Care Provider [phone] Reason for Visit * Reason Onset Date Comments Medication Management 10/22/2020 [place] Encounter Details Date Type Department Care Team (Late st Contact Info) Description 10/22/2020 Telephone [facility] Neurology - S [address] [phone] Alta Walter MD [address] [place] [address], Level 2 [place] [address] Medication Management ([place]) Social History [...] Encounter - Sunni Ivey RN - 11/05/2020 1298 EDT Spoke with Miguelina and let her [...] 02/13/2024 13:00 EST Office Visit [facility] Neurology - S [address] [address]131 Alta Walter MD [address] [place] [address] Level 2 [place] [phone] documented as of this encounter Visit Diagnoses Not on filedocumented in this encounter Care Teams Sharepoint Manager Relationship Specialty Start Date End Date Yumiko Tavarez MD [address] [place] [phone] PCP - General 12/29/19 documented as of this encounter
--- OUTSIDE RECORDS SUMMARY | 2024-01-28 12:52 | XMS_ITS | Encounter Summary ---
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 Alta Walter MD Phone: tel: fax: Referral ID Status Reason Start Date Expiration Date V isits Requested Visits Authorized [id number] Closed Specialty Services Required 01/02/2023 1 1 Question Answer Reason for Request: Patient with involuntary movements / functional neurological disorder, please help with gait / motor reprogramming SITE [facility] - Rehabilitation Department Comments Sarah Moreno, PT DTaP [facility] Reason for Visit * Reason Comments Follow-up Encounter Details Date Type Department Care Team (Late st Contact Info) Description 01/01/2023 13:15 EDT Office Visit [facility] Neurology - S [place] 1 [place] [address] Alta Walter MD [address] [place] [address], Level 2 [place] [phone] Tardive dyskinesia (Primary Dx); Functional neurological symptom [...] for this encounter. Phone: N/A Fax: Primary Photography Colorist: Yumiko Tavarez [address] [place] [phone] ASSESSMENT & PLAN / RECOMMENDATIONS 1. 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 added in this encounter Care Teams Throat Cutter Relationship Specialty Start Date End Date Yumiko Tavarez MD [address] [place] [address] PCP - General 12/29/19 documented as of this encounter
--- OUTSIDE RECORDS SUMMARY | 2024-01-28 12:52 | XMS_ITS | Encounter Summary ---
Author Organization [facility] Address [address] [place] [address] Care Team Providers Care Railroad Brakeman Name Role Phone Yumiko Tavarez MD Primary Care Provider [phone] Reason for Visit * Reason Onset Date Comments Prior Auth, Medication 03/13/2023 Encounter Details Date Type Department Care Team (Late st Contact Info) Description 03/13/2023 Telephone [facility] Neurology - S [address] [phone] Alta Walter MD [address] [place] [address], Level 2 [place] [address] Prior Auth, Medication Social History [...] 1 mg tab, sent to plan. Mooney: [id number] PA response: Drug is covered by current benefit plan. No further PA activity needed documented in this encounter Plan of Treatment Upcoming Encounters Date Type Department Care Team (Late st Contact Info) Description 02/13/2024 13:00 EST Office Visit [facility] Neurology - S [address] [address] Alta Walter MD [address] [place] [address], Level 2 [place] [phone] documented as of this encounter Visit Diagnoses Not on filedocumented in this encounter Care Teams Railroad Brakeman Relationship Specialty Start Date End Date Yumiko Tavarez MD [address] [place] [address] PCP - General 12/29/19 documented as of this encounter
--- OUTSIDE RECORDS SUMMARY | 2024-01-28 12:52 | XMS_ITS | Encounter Summary ---
Author Organization [facility] Address [address] [place] [address] Care Team Providers Care Black Top Roller Name Role Phone Yumiko Tavarez MD Primary Care Provider [phone] Encounter Details Date Type Department Care Team (Latest Contact Info) Description 10/13/2022 Lab Requisition [facility] Pathology & Laboratory Medicine - [facility] [address] [place], [place] [address] Yumiko Tavarez MD [address] [place] [phone] Encounter for gynecological examination (general) (routine) without [...] [facility] Neurology - S [place] [address] [place] [phone] Alta Walter MD [address] [place] [address], Level 2 [place] [phone] documented as of this encounter Procedures Procedure Name Priority Date/Time Associated Diagnosis Comments PAP TEST Today 10/11/2022 13:45 EDT Encounter for gynecological examination (general) (routine) without abnormal findings Encounter for general adult medical examination without abnormal findings documented in this encounter Results * PAP TEST (10/11/2022 13:45 EDT) Specimens A. Cervix and/or Endocervix , ThinPrep Imaging System with Manual Evaluation 10/19/2022 15:18 EDT [facility] Specimen Adequacy Unsatisfactory for evaluation-Insuf ficient number of squamous epithelial cells. Specimen processed and examined but preparation compromised by lubricant or other vaginal contaminant. 10/19/2022 15:18 EDT [facility] General Categorization Unsatisfactory 10/19/2022 15:18 EDT [facility] Educational Comments Unsatisfactory - Specimen processed and examined, but unsatisfactory for evaluation of epithelial abnormality. Recommend repeat age-based screening after 2-4 months per ASCCP Guidelines which may be found at www.asccp.org. HPV testing will not be performed due to the potential for false negative results. 10/19/2022 15:18 EDT [facility] Attestation . 10/19/2022 15:18 T [facility] at 1518 Clinical History See below 10/20/19 15:18 EDT [facility] Performing Lab [facility] 10/19/2022 15:18 EDT [facility] Scanned Images 10/19/2022 15:18 T [facility] Pap Test CERVIX UTERI STRUCTURE / Unknown 10/11/2022 13:45 EDT 10/13/2022 12:32 EDT us Yumiko Tavarez MD PATHOLOGY ORDERABLES Final Res ult [facility] [address] [place] [address] documented in this encounter Visit Diagnoses Diagnosis Encounter for gynecological examination (general) (routine) without abnormal findings Encounter for general adult medical examination without abnormal findings Unspecified general medical examination documented in this encounter Care Teams Black Top Roller Relationship Specialty Start Date End Date Yumiko Tavarez MD [address] [place] [address] PCP - General 12/29/19 documented as of this encounter
--- OUTSIDE RECORDS SUMMARY | 2024-01-28 12:52 | XMS_ITS | Encounter Summary ---
Author Organization [facility] Address [address] [place] [address] Care Team Providers Care International Marketing Coordinator Name Role Phone Yumiko Tavarez MD Primary Care Provider [phone] Reason for Visit * Reason Comments Follow-up Telemedicine Video Visit Encounter Details Date Type Department Care Team ([facility] st Contact Info) Description 06/15/2022 16:00 EDT Telemedicine [facility] Neurology - S [address] [phone] Alat Walter MD [address] [place] [address] Level 2 [place] [address] Tardive dyskinesia (Primary Dx); Functional [...] visit Clinician Requesting Consultation: Yumiko Tavarez MD [address] [place] [phone] Fax: Primary Roofer Vinyl Coating: Yumiko Tavarez [address] [place] [phone] ASSESSMENT & PLAN / RECOMMENDATIONS 1. Tardive [...] difficulty - has dysphagia, referral sent to [facility] Urinary dysfunction - okay in [...] naloxone (NARCAN) 4 mg/actuation nasal spray 1 [place] by nasal route as needed. ??? 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
--- OUTSIDE RECORDS SUMMARY | 2024-01-28 12:52 | XMS_ITS | Encounter Summary ---
Author Organization [facility] Address [address] [place] [address] Care Team Providers Care Chief Controller Center Name Role Phone Yumiko Tavarez MD Primary Care Provider [phone] Reason for Visit * Reason Onset Date Comments Prior Auth, Medication 03/01/2021 Ingrezza Encounter Details Date Type Department Care Team ([facility] st Contact Info) Description 03/01/2021 Telephone [facility] Neurology - S [address] [phone] Alta Walter MD [address] [place] [address], Level 2 [place] [address] Prior Auth, Medication (Ingrezza ) [...] Authorization Approval Medication: Ingrezza 80mg maintenance Insurance Name:[employer] Insurance Type: Commercial Approval Dates: 03/03/2021-02/28/2022 Authorization Number: [id number] Benefits Information: [facility] able to fill? : Yes Required Pharmacy: [facility] Additional Info/Other Notes: * Telephone Encounter - Edi Vega - 03/03/2021 1453 EST Prior Authorization Submission Process ?? Medication: Ingrezza 80mg daily - continuation Insurance: [employer] Insurance Type: Commercial Date PA Request Received: 02/11/21 PA Submission Date: 03/03/21 [facility] Mooney: n/a, submitting via PromptPA Notes: [facility] ID: [id number] Submitted by: Edi Vega Phone: [phone] * Telephone Encounter - Blanca Vaughn RPH - 03/02/2021 1313 EST [facility] Neurology: Medication Therapy Initiation Miguelina Morales is a 56 y.o. female who will be initiating treatment with Ingrezza for Tardive Dyskinesia. Anticipated start date: Mar 2020 Filling Pharmacy: [facility] Specialty Pharmacy I performed a complete review [...] and maintenance dose have been sent to [facility]. Blanca Vaughn, Pharm.D. [facility] Ambulatory Pharmacist Clinician - Neurology 03/02/2021 ADDENDUM: [facility] is unable to purchase/dispense Ingezza. Prescriptions rerouted to [facility] Pharmacy,override obtained my pharmacy staff so medication may be filled by [facility]. Medication will be delivered to patient Sunday03/07/2021 * Telephone Encounter - Gerry Wagner - 03/01/2021 1340 EST Prior Authorization Approval Medication: Ingrezza Insurance Name: [employer] Insurance Type: Commercial Approval Dates: 03/01/21 to 02/28/22 Authorization Number: [id number] Benefits Information: [facility] able to fill? : No Required Pharmacy: [facility] Prior Authorization Submission Process - Urgent Medication: Ingrezza 40mg & 80mg Insurance: [employer] Insurance Type: Commercial Date PA Request Received: 02/11/21 PA Submission Date: 03/01/21 [facility] Mooney: n/a, submitting via portal Notes: EOC ID: [id number] Submitted by: Gerry Phone: [phone] documented in this encounter Plan of Treatment Upcoming Encounters Date Type Department Care Team (Late st Contact Info) Description 02/13/2024 13:00 EST Office Visit [facility] Neurology - S [place] [address] [place] [address] Alta Walter MD [address] [place] [address], Level 2 [place] [phone] documented as of this encounter Visit Diagnoses [...] documented as of this encounter Care Teams Chief Controller Center Relationship Specialty Start Date End Date Yumiko Tavarez MD [address] [place] [phone] PCP - General 10/26/20 documented as of this encounter
--- OUTSIDE RECORDS SUMMARY | 2024-01-28 12:52 | XMS_ITS | Encounter Summary ---
Author Organization [facility] Address [address] [place] [address] Care Team Providers Care Dye Weigher Helper Name Role Phone Yumiko Tavarez MD Primary Care Provider [phone] Reason for Visit * Reason Comments Follow-up Encounter Details Date Type Department Care Team ([facility] st Contact Info) Description 12/07/2022 15:00 EDT Telemedicine [facility] Neurology - [address] [id number] Alta Walter MD [address] [place] [address] Level 2 [place] [phone] Tardive dyskinesia (Primary Dx); Postural tremor; Functional [...] for this encounter. Phone: N/A Fax: Primary Circle Saw Operator: Yumiko Tavarez [address] [place] [phone] ASSESSMENT & PLAN / RECOMMENDATIONS 1. Tardive [...] difficulty - has dysphagia, referral sent to 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
--- OUTSIDE RECORDS SUMMARY | 2024-01-28 12:52 | XMS_ITS | Encounter Summary ---
Author Organization [facility] Address [address] [place] [address] Care Team Providers Care Corporate Logistics Manager Name Role Phone Yumiko Tavarez MD Primary Care Provider [phone] Encounter Details Date Type Department Care Team (Latest Contact Info) Description 03/02/2021 Lab Requisition [facility] Pathology & Laboratory Medicine - [facility] [address] [place], [place] [address] Yumiko Tavarez MD [address] [place] [phone] Encounter for general adult medical examination without [...] Visit [facility] Neurology - [place] [address] [place] [address] Alta Walter MD [address] [place] [address] Level 2 [place] [address] documented as of this encounter [...] types 16,18,31,33,35,39,45,51,52,56,58,59,66, and 68 is detected by funeral director/embalmer mediated amplification. High and intermediate risk HPV types are associated with most squamous intraepithelial lesions and cervical cancers. Papanicolaou smear specimen (specimen) CERVIX UTERI STRUCTURE / Unknown 02/28/2021 16:30 EST 03/08/2021 15:40 EST us Yumiko Tavarez MD MICROBIOLOGY - GENERAL ORDERAB LES Final Result [facility] [address] [place] [address] * PAP TEST (02/28/2021 16:30 EST) Specimens A. Cervix and/or Endocervix , ThinPrep Imaging System with Manual Evaluation 03/10/2021 15:14 EST [facility] Specimen Adequacy Satisfactory for Evaluation - transformation zone component present 03/10/2021 15:14 EST [facility] General Categorization Negative for intraepithelial lesion or malignancy 03/10/2021 15:14 [facility] Attestation . 03/10/2021 15:14 [facility] at 1514 Clinical History See below 03/10/19 22 15:14 [facility] HPV The result for the Human Papillomavirus (HPV) Detection-High Risk Types is Positive . E6 OR E7 mRNA from one or more types of HPV types 16,18,31,33,35,39 ,45,51,52,56,58,5 9,66, and 68 is detected by funeral director/embalmer mediated amplification. High and intermediate risk HPV types are associated with most squamous intraepithelial lesions and cervical cancers. Testing was performed on specimen [id number] and was resulted on 03/10/2021 0708 EST by ANTHONY, LAB INSTRUMENT RESULTS IN 03/10/2021 15:14 [facility] Performing Lab [facility] 03/10/2021 15:14 [facility] Scanned Images 03/10/2021 15:14 [facility] Papanicolaou smear specimen (specimen) CERVIX UTERI STRUCTURE / Unknown 02/28/2021 16:30 EST 03/02/2021 8:58 EST us Yumiko Tavarez MD PATHOLOGY ORDERABLES Final Res ult [facility] [address] [place] [address] documented in this encounter Visit Diagnoses Diagnosis Encounter for general adult medical examination without abnormal findings Unspecified general medical examination Encounter for screening for malignant neoplasm of cervix Screening for malignant neoplasm of the cervix Encounter for gynecological examination (general) (routine) without abnormal findings documented in this encounter Care Teams Corporate Logistics Manager Relationship Specialty Start Date End Date Yumiko Tavarez MD [address] [place] [phone] PCP - General 12/29/19 documented as of this encounter
--- OUTSIDE RECORDS SUMMARY | 2024-01-28 12:52 | XMS_ITS | Encounter Summary ---
Author Organization [facility] Address [address] [place] [address] Care Team Providers Care Nat Instructor Name Role Phone Yumiko Tavarez MD Primary Care Provider [phone] Reason for Visit * Reason Onset Date Comments Medication Management 12/09/2021 Encounter Details Date Type Department Care Team (Late st Contact Info) Description 12/09/2021 Telephone [facility] Neurology - [address] [phone] Alta Walter MD [address] [place] [address] Level 2 [place] [phone] Medication Management Social History Tobacco Use Types [...] clonazapam rx with increase to 1mg midday. sageCrowd message to Miguelina. * Telephone Encounter - Alta Freeman RN - 12/14/2021 1321 EDT Medication Rx Request Medication: clonazePAM (KLONOPIN) 1 mg tablet Last Visit in login department: 09/29/2021 Next appointment Scheduled: 03/02/2022 Date previous Rx written: 10/12/2021 VPMS Inquiry needed? Yes The [place] Prescription Monitoring System query has been completed [...] FUR 03/02/22 at 3:30pm TVD FUR 4M [email or web address] [phone] Zoom scheduling needed documented in this encounter Plan of Treatment Upcoming Encounters Date Type Department Care Team (Late st Contact Info) Description 02/13/2024 13:00 EST Office Visit [facility] Neurology - [address] [address] Alta Walter MD [address] [place] [address], Level 2 [place] [phone] documented as of this encounter Visit Diagnoses Not on filedocumented in this encounter Discontinued Medications Medication Sig Discontinue Reason Start Date End Da te clonazePAM (KLONOPIN) 1 mg tablet Take 1.5 Tablets by mouth 2 times daily AND 0.5 Tablets daily. Daily Max: 3.5 mg. Reorder 10/12/2021 12/14/2021 documented as of this encounter Care Teams Nat Instructor Relationship Specialty Start Date End Date Yumiko Tavarez MD [address] [place] [address] PCP - General 12/29/19 documented as of this encounter
--- OUTSIDE RECORDS SUMMARY | 2024-01-28 12:52 | XMS_ITS | Encounter Summary ---
Author Organization [facility] Address [address] [place] [address] Care Team Providers Care Front Desk Administrator Name Role Phone Yumiko Tavarez MD Primary Care Provider [phone] Encounter Details Date Type Department Care Team (Late st Contact Info) Description 07/26/2022 Lab Requisition [facility] Pathology & Laboratory Medicine - [facility] [address] [place], [place] [address] Selvin Marie MD [address] [place] [phone] Encounter for screening for malignant neoplasm of [...] Info) Description 02/13/2024 13:00 EST Office Visit [facility] Neurology - S [address] [address] Alta Walter MD [address] [place] [address], Level 2 [place] [phone] documented as of this encounter Procedures Procedure [...] explore management options, if applicable. 07/27/2022 16:57 [facility] Final Diagnosis A. COLON, TRANSVERSE, POLYP, BIOPSY: - Hyperplastic polyp. - Deeper levels examined. B. COLON, SIGMOID, POLYP, BIOPSY: - Hyperplastic polyp. 07/27/2022 16:57 [facility] Attestation By the signature below, the attending physician certifies that they have 1) personally conducted a gross and/or microscopic examination of the described specimen(s), and/or personally interpreted the results of laboratory testing of the described specimen(s), and 2) personally rendered or confirmed the above diagnosis. 07/27/2022 16:57 [facility] at 1657 Clinical History Screening colonoscopy; diverticulosis, colon polyp 07/27/2022 16:57 [facility] Gross Description A. Received in [...] B1. CHRIS FREY(ASCP) 07/26/2022 18:02 07/27/2022 16:57 [facility] Performing Lab [facility] 07/27/2022 16:57 [facility] Scanned Images 07/27/2022 16:57 EDT [facility] Tissue ENTIRE SIGMOID COLON / Unknown 07/26/2022 8:49 EDT 07/26/2022 16:54 EDT Tissue specimen (specimen) SIGMOID COLON STRUCTURE / Unknown 07/26/2022 8:49 EDT 07/26/2022 16:54 EDT us Selvin Marie MD PATHOLOGY ORDERABLES F inal Result [facility] [address] [place] [address] documented in this encounter Visit Diagnoses Diagnosis Encounter for screening for malignant neoplasm of colon Special screening for malignant neoplasms, colon documented in this encounter Care Teams Front Desk Administrator Relationship Specialty Start Date End Date Yumiko Tavarez MD [address] [place] [address] PCP - General 12/29/19 documented as of this encounter
--- OUTSIDE RECORDS SUMMARY | 2024-01-28 12:53 | XMS_ITS | Encounter Summary ---
Author Organization [facility] Address [address] [place] [address] Care Team Providers Care Computer Recycling Worker Name Role Phone Yumiko Tavarez MD Primary Care Provider [phone] Reason for Visit * Reason Comments New Patient Visit * Referral (Routine) - Closed Specialty Diagnoses / Procedures [facility] To Contact Neurology Diagnoses Parkinson's disease ([facility] Yumiko Tavarez MD [address] [place] [phone] Phone: tel: fax: Polo Peter MD Phone: tel: fax: Referral ID Status Reason Start Date Expiration Date Visits Re quested Visits Authorized [id number] Closed 1 1 Encounter Details Date Type Department Care Team (Late st Contact Info) Description 02/23/2020 13:15 EST Office Visit [facility] Neurology - S [place] [address] [place] [phone] Alta Walter MD [address] [place] [address] [address] [place] [address] Involuntary movements (Primary Dx); Tremor; [...] Consultation Clinician Requesting Consultation: Yumiko Tavarez MD [address] [place] [address] Primary Telephone Order Supervisor: Yumiko Tavarez [address] [place] [address] ASSESSMENT & PLAN / RECOMMENDATIONS 1. Involuntary [...] ago, she was evaluated by neurologists at [facility] and had a thorough evaluation for [...] # Will try to obtain records from [facility] (psychiatry) # If she has [...] difficulty - has dysphagia, referral sent to [facility] Current Medications: Outpatient Medications Marked [...] naloxone (NARCAN) 4 mg/actuation nasal spray 1 [place] by nasal route as needed. ??? 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 If there are any questions, please contact the office at [phone]. Alta Thakkar MD Attending Physician, Movement Disorders Department of Neurology documented in this encounter Plan of Treatment Upcoming Encounters Date Type Department Care Team (Late st Contact Info) Description 02/13/2024 13:00 EST Office Visit [facility] Neurology - S [place] [address] [place], [place] [phone] Alta Walter MD [address] [place] [address] [address] [place] [address] documented as of this encounter [...] daily. added in this encounter Care Teams Computer Recycling Worker Relationship Specialty Start Date End Date Yumiko Tavarez MD [address] [place] [phone] PCP - General 12/29/19 documented as of this encounter
--- OUTSIDE RECORDS SUMMARY | 2024-01-28 12:53 | XMS_ITS | Encounter Summary ---
[place] [address] Care Team Providers Care Clerical Associate Name Role Phone Yumiko Tavarez MD Primary Care Provider [phone] Reason for Referral * Consultation (Routine) - Authorized Specialty Diagnoses / Procedures Referred By Contac t Referred To Contact [facility] Diagnoses Cervicalgia Yumiko Tavarez MD [address] [place] [address] [facility] [place] [address] Referral ID Status Reason Start Date Expiration Date Visits Requested Visits Authorized [id number] Authorized Consult, Test & Treat PCP Updated and/or Approved 12/25/2024 6 6 Encounter Details Date Type Department Care Team (Late st Contact Info) Description 01/22/2024 Transcribe Orders eDH Incoming Referrals [phone] Yumiko Tavarez MD [address] [place], [place] [phone] Cervicalgia Social History Tobacco Use Types Packs/Day [...] 1:00 PM EST Office [place] [address] Alta Caban APRN [facility] [place] [address] Scheduled Referrals Name Type Priority Associated Diagnoses Order Schedule Referral to Pain Management Outpatient Referral Routine Cervicalgia Ordered: 01/22/2024 documented as of this encounter Visit Diagnoses Diagnosis Cervicalgia documented in this encounter Care Teams Clerical Associate Relationship Specialty Start Date End Date Yumiko Tavarez MD [address] [place] [address] PCP - General Family Medicine 07/07/16 documented as of this encounter
--- OUTSIDE RECORDS SUMMARY | 2024-01-28 12:53 | XMS_ITS | Encounter Summary ---
Author Organization [facility] Address [address] [place] [address] Care Team Providers Care Take Down Inspector Name Role Phone Unavailable Primary Care Provider Unavailabl e Encounter Details Date Type Department Care Team (Late st Contact Info) Description 08/03/2008 Orders Only [facility] Laboratory Services - [facility] ([facility] [address] [place], [place] [phone] Lincoln Card MD [address] [place] [id number] Social History Tobacco Use Types Packs/Day Years [...] Visit [facility] Neurology - S [place] [address] [place], [place] [address] Alta Walter MD [address] [place] [address], Level [address] [place] [address] documented as of this encounter [...] ? ALMAZAN, CYDNEY ? Accession #: ? [id number] ? : ? 1965 (Age: 43) ??F [...] as (A1) and (A2). ? Received in [facility]'s fixative labelled Almazan, Cydney and biopsy [...] PATHOLOGY ORDERABLES Final Result [facility] [address] [place] [address] documented in this encounter Visit Diagnoses Not on filedocumented in this encounter
--- OUTSIDE RECORDS SUMMARY | 2024-01-28 12:53 | XMS_ITS | Encounter Summary ---
Author Organization [facility] Address [address] [place] [address] Care Team Providers Care Dye Worker Name Role Phone Yumiko Tavarez MD Primary Care Provider [phone] Reason for Visit * Radiology Services (Routine) - Receiving Office to Obtain Authorization Specialty Diagnoses / Procedures Referred By Contac t Referred To Contact Nuclear Medicine Diagnoses Parkinsonism, unspecified Parkinsonism type (HCC-CMS) Procedures NM DATSCAN WITH SPECT/CT NM DATSCAN SPECT Alta Walter MD Phone: tel: fax: Referral ID Status Reason Start Date Expiration Date Visits Requested Visits Authorized [id number] Receiving Office to Obtain Authorization 04/07/2020 1 1 Encounter Details Date Type Department Care Team (Latest Contact Info) Description 05/20/2020 11:08 EDT - 05/20/2020 23:59 EDT Hospital Encounter [facility] Radiology Nuclear [place] [address] Discharge Disposition: Home or Self Care Social [...] 02/13/2024 13:00 EST Office Visit [facility] Neurology - S [address] [address] Alta Walter MD [address] [place] [address], Level 2 [place] [address] documented as of this encounter Procedures Procedure Name Priority Date/Time Associated Diagnosis Comments NM DATSCAN WITH SPECT/CT Routine 05/20/2020 15:56 EDT Parkinsonism, unspecified Parkinsonism type ([facility]) documented in this encounter Results * NM [...] filedocumented in this encounter Care Teams Dye Worker Relationship Specialty Start Date End Date Yumiko Tavarez MD [address] [place] [address] PCP - General 12/29/19 documented as of this encounter
--- OUTSIDE RECORDS SUMMARY | 2024-01-28 12:53 | XMS_ITS | Encounter Summary ---
Author Organization [facility] Address [address] [place] [address] Care Team Providers Care Dependency Director Name Role Phone Yumiko Tavarez MD Primary Care Provider [phone] Reason for Visit * Reason Onset Date Comments Appointment Related 05/31/2020 Encounter Details Date Type Department Care Team (Late st Contact Info) Description 05/31/2020 Telephone [facility] Neurology - S [address] [phone] Alta Walter MD [address] [place] [address] [address] [place] [phone] Appointment Related Social History Tobacco Use Types [...] for 07/22/20 at 10am 2 mo [email or web address] Meeting ID: [id number] Password: [email or web address] documented in this encounter Plan of Treatment Upcoming Encounters Date Type Department Care Team (Late st Contact Info) Description 02/13/2024 13:00 EST Office Visit [facility] Neurology - [address] [address] Alta Walter MD [address] [place] [address], Level [address] [place] [phone] documented as of this encounter Visit Diagnoses Not on filedocumented in this encounter Care Teams Dependency Director Relationship Specialty Start Date End Date Yumiko Tavarez MD [address] [place] [phone] PCP - General 12/29/19 documented as of this encounter
--- OUTSIDE RECORDS SUMMARY | 2024-01-28 12:53 | XMS_ITS | Encounter Summary ---
Author Organization [facility] Address [address] [place] [address] Care Team Providers Care French Tutor Name Role Phone Unknown, Provider Primary Care Provider Yumiko Loomis MD Primary Care Provider Reason for Visit * Reason Onset Date Comments Referral Request 06/19/2019 Encounter Details Date Type Department Care Team ([facility] st Contact Info) Description 06/19/2019 Telephone [facility] Neurology - [address] [phone] Unknown, Provider, MD Referral Request Social History [...] Marshall - 06/20/2019 1533 EDT Dillon from [facility] calling to let Johana know that the Pt would like to keep referral with [facility] for second opinion and will resend updated referral in September when patient sees them for appt. * Telephone Encounter - Marlene Sen - 06/20/2019 1140 EDT Dillon calls regarding her phone call from yesterday asking for Johana. I will forward to Johana :) * Telephone Encounter - Johana Govea - 06/19/2019 1559 EDT Calling referring office ([phone]) to inform them of the doctor's opinion [...] ideally served with follow up care with [facility] until we can get her on site I can see the patient with the caveat that the recommendations may be limited documented in this encounter Plan of Treatment Upcoming Encounters Date Type Department Care Team (Late st Contact Info) Description 02/13/2024 13:00 EST Office Visit [facility] Neurology - [address] [phone] Alta Walter MD [address] [place] [address], Level [address] [place] [address] documented as of this encounter Visit Diagnoses Not on filedocumented in this encounter Care Teams French Tutor Relationship Specialty Start Date End Date Unknown, Provider, PCP - General 08/05/08 12/28/19 Yumiko Tavarez MD [address] [place] [address] PCP - General 12/29/19 documented as of this encounter
--- OUTSIDE RECORDS SUMMARY | 2024-01-28 12:53 | XMS_ITS | Encounter Summary ---
[place] [address] Care Team Providers Care Strip Picker Name Role Phone Yumiko Tavarez MD Primary Care Provider [phone] Encounter Details Date Type Department Care Team [...] 1:00 PM EST [place] [address] Alta Caban APRN [facility] [place] [address] documented as of this encounter Visit Diagnoses Not on filedocumented in this encounter Care Teams Strip Picker Relationship Specialty Start Date End Date Yumiko Tavarez MD [address] [place] [address] PCP - General Family Medicine 07/07/16 documented as of this encounter
--- OUTSIDE RECORDS SUMMARY | 2024-01-28 12:53 | XMS_ITS | Clinical Summary ---
Author Organization [facility] Address [facility] [place] [address] Care Team Providers Care Supervisor Propellant Charge Loading Name Role Phone Yumiko Tavarez MD Primary Care Provider [phone] Allergies Active Allergy Reactions Criticality Noted Date [...] the evening Active naloxone (Narcan) 4 mg/actuation [place], Non-Aerosol 1 spray by Nasal route as [...] Care Team Description 01/25/2024 Telephone Urology at [place] [phone] Joao Lamb 01/22/2024 Transcribe Orders eDH Incoming Referrals [phone] Yumiko Tavarez MD Cervicalgia 01/10/2024 Telephone [place] [address] Sue Argueta, RN 01/09/2024 Transcribe Orders eDH Incoming Referrals [phone] Yumiko Tavarez MD Retention of urine, unspecified 01/03/2024 11:30 AM EDT Office Visit [place] [address] Rakesh swann, Nenita W, FILLING MACHINE OPERATOR Hypertension, unspecified type; Hyperparathyroidism; Stage 3 chronic kidney disease, unspecified whether stage 3a or 3b CKD; Tardive dyskinesia; Functional neurological symptom disorder with abnormal movement 01/03/2024 10:00 AM EDT Laboratory Appointment Lab [address] [place] [address] Stage 3a chronic kidney disease; [...] 1:00 PM EST Office Visit Urology at [facility] [place] [address] Alta Caban APRN [facility] [place] [address] Health Maintenance Due Date Last Done Comments [...] Date/Time Associated Diagnosis Comments URINALYSIS BEAKER MICROSCOPIC ([facility]) Routine 01/03/2024 10:43 AM EDT Stage [...] - 4 /HPF 01/03/2024 12:03 PM EDT [facility] WBC, Urine 35(H) 0 - 5 /HPF 01/03/2024 12:03 PM EDT [facility] Squamous Epithelial Cells, Urine 7(H) 0 - 5 /HPF 01/03/2024 12:03 PM EDT [facility] Hyaline Casts, Urine 3(H) 0 - 2 /LPF 01/03/2024 12:03 PM EDT [facility] Comment 01/03/2024 12:03 PM EDT [facility] Comment:Interpret results wi th caution, microscopic results are from a suboptimal specimen. Bacteria, Urine Moderate( A) None /HPF 01/03/2024 12:03 PM EDT [facility] Urine Non Blood Collection / Unknown 01/03/2024 10:43 AM EDT 01/03/2024 10:45 AM EDT Nenita Grimes APRN URINE ORD ERABLES Performing Organization Address City/[facility] Co de Phone Number [facility] [place] [address] * Urinalysis Microscopic Exam (01/03/2024 10:43 AM EDT) Urine Non Blood Collection / Unknown 01/03/2024 10:43 AM EDT 01/03/2024 10:45 AM EDT Nentia Grimes APRN URINE ORD ERABLES Performing Organization Address City/[facility]/ZIP Co de Phone Number [facility] [place] [address] * (ABNORMAL) PTH (01/03/2024 10:43 AM EDT) Parathyroid Hormone 76(H) 15 - 65 pg/mL 01/03/2024 11:25 AM EDT [facility] Blood VENOUS BLOOD SPECIMEN / Unknown Venipuncture / Unknown 01/03/2024 10:43 AM EDT 01/03/2024 10:45 AM EDT Nenita Grimes APRN CHEMISTRY ORDERABLES Performing Organization Address City/[facility]/ZIP Co de Phone Number [facility] [place] [address] * Protein/Creatinine Ratio, urine (01/03/2024 10:43 AM EDT) Protein, Urine 6 0 - 12 mg/dL 01/03/2024 11:26 AM EDT [facility] Creatinine, Urine 119 mg/dL 01/03/2024 11:26 AM EDT [facility] Protein / Creatinine Ratio, Urine 0.1 ratio 01/03/2024 11:26 AM EDT [facility] Urine Non Blood Collection / Unknown 01/03/2024 10:43 AM EDT 01/03/2024 10:45 AM EDT Nenita Grimes APRN URINE ORD ERABLES Performing Organization Address City/[facility]/ZIP Co de Phone Number [facility] [place] [address] * U Albumin/Cre Ratio (01/03/2024 10:43 AM EDT) Albumin, Urine <3.0 mg/L 01/03/2024 11:26 AM EDT [facility] Creatinine, Urine 119 mg/dL 01/03/2024 11:26 AM EDT [facility] Albumin / Creatinine Ratio, Urine 01/03/2024 11:26 AM EDT [facility] Comment:Not Calculated. Urine Non Blood Collection / Unknown 01/03/2024 10:43 AM EDT 01/03/2024 10:45 AM EDT Nenita Hany Cornelio LERNER URINE ORD ERABLES Performing Organization Address City/[facility]/ZIP Co de Phone Number [facility] [place] [address] * Vitamin D, 25-Hydroxy (01/03/2024 10:43 AM EDT) Vitamin D Total 25 OH 44 21 - 100 ng/ml 01/03/2024 11:39 AM EDT [facility] Vitamin D Total 25 OH Interp Sufficient 01/03/2024 11:39 AM EDT [facility] Blood VENOUS BLOOD SPECIMEN / Unknown Venipuncture / Unknown 01/03/2024 10:43 AM EDT 01/03/2024 10:45 AM EDT Nenita Grimes APRN CHEMISTRY ORDERABLES Performing Organization Address City/[facility]/ZIP Co de Phone Number [facility] [place] [address] * (ABNORMAL) Urinalysis Dipstick (01/03/2024 10:43 AM EDT) Glucose, Urine Dipstick Negative Negative 01/03/2024 12:03 PM EDT [facility] Protein, Urine Dipstick Negative Negative 01/03/2024 12:03 PM EDT [facility] Bilirubin, Urine Dipstick Negative Negative 01/03/2024 12:03 PM EDT [facility] Comment:Clinical correlation required for positive Urine Bilirubin results as false positive may occur with some drugs and drug related products. If a false positive is suspected a serum total bilirubin should be considered if clinically indicated. Urobilinogen, Urine Dipstick Normal Normal, 0.2 mg/dL, 1.0 mg/dL 01/03/2024 12:03 PM EDT [facility] pH, Urine (dipstick) 7.5 5.0 - 8.0 01/03/2024 12:03 PM EDT [facility] Blood, Urine Dipstick Negative Negative 01/03/2024 12:03 PM EDT [facility] Ketone, Urine Dipstick Negative Negative 01/03/2024 12:03 PM EDT [facility] Nitrite, Urine Dipstick Negative Negative 01/03/2024 12:03 PM EDT [facility] Leukocytes, Urine Dipstick Large(A) Negative 01/03/2024 12:03 PM EDT [facility] Specific [place] Urine Automated 1.010 1.005 - 1.030 01/03/2024 12:03 PM EDT [facility] Appearance, Urine Dipstick Cloudy(A) Clear 01/03/2024 12:03 PM EDT [facility] Color, Urine Dipstick Yellow Yellow, Dark Yellow 01/03/2024 12:03 PM EDT [facility] CULTURE ADDED? 01/03/2024 12:03 PM EDT [facility] Urine Non Blood Collection / Unknown 01/03/2024 10:43 AM EDT 01/03/2024 10:45 AM EDT Nenita Grimes APRN URINE ORD ERABLES [facility] [place] [address] * (ABNORMAL) CBC (with Diff) (01/03/2024 10:43 AM EDT) White Blood Cell 5.51 4.00 - 9.50 x10(3)/mc L 01/03/2024 11:16 AM EDT [facility] Red Blood Cell 3.80(L) 4.00 - 5.21 x10(6)/mc L 01/03/2024 11:16 AM EDT [facility] Hemoglobin 12.5 11.7 - 15.5 g/dL 01/03/2024 11:16 AM EDT [facility] Hematocrit 38.7 35.7 - 45.8 % 01/03/2024 11:16 AM [facility] Mean Cell Volume 101.8(H) 82.6 - 94.4 fL 01/03/2024 11:16 AM [facility] Mean Cell Hemoglobin 32.9(H) 27.1 - 32.0 pg 01/03/2024 11:16 AM [facility] Mean Cell Hemoglobin Concentration 32.3 31.7 - 35.0 g/dL 01/03/2024 11:16 AM [facility] Platelet 217 145 - 357 x10(3)/mc L 01/03/2024 11:16 AM [facility] Mean Platelet Volume 11.1 7.6 - 12.9 fL 01/03/2024 11:16 AM [facility] RDW Standard Deviation 46.0 37.0 - 46.0 fL 01/03/2024 11:16 AM [facility] RDW coefficient of variation 12.2 11.5 - 14.1 % 01/03/2024 11:16 AM [facility] NRBC% auto 0.0 % 01/03/2024 11:16 AM [facility] NRBC Absolute <0.01 <0.01 x10(3)/mc L 01/03/2024 11:16 AM [facility] Neutrophil % 46.1 % 01/03/2024 11:16 AM [facility] Neutrophil Absolute (ANC) - Automated 2.54 1.70 - 6.10 x10(3)/mc L 01/03/2024 11:16 AM [facility] Lymph % 44.3 % 01/03/2024 11:16 AM [facility] Lymph Absolute 2.44 0.90 - 3.20 x10(3)/mc L 01/03/2024 11:16 AM [facility] Monocyte % 7.8 % 01/03/2024 11:16 AM [facility] Monocyte Absolute 0.43 0.30 - 0.90 x10(3)/mc L 01/03/2024 11:16 AM EDT [facility] Eos % 0.9 % 01/03/2024 11:16 AM EDT [facility] Eos Absolute 0.05 0.00 - 0.40 x10(3)/mc L 01/03/2024 11:16 AM EDT [facility] Basophil % 0.5 % 01/03/2024 11:16 AM EDT [facility] Baso Absolute <0.04 0.00 - 0.10 x10(3)/mc L 01/03/2024 11:16 AM EDT [facility] Immature Gran % 0.4 % 11:16 AM EDT [facility] Immature Gran Absolute <0.04 0.00 - 0.04 x10(3)/mc L 01/03/2024 11:16 AM EDT [facility] Blood VENOUS BLOOD SPECIMEN / Unknown Venipuncture / Unknown 01/03/2024 10:43 AM EDT 01/03/2024 10:45 AM EDT Nenita Grimes FILLING MACHINE OPERATOR [place] [address] * Uric acid (01/03/2024 10:43 AM EDT) Uric Acid 6.0 2.5 - 6.5 mg/dL 01/03/2024 11:25 AM EDT [facility] Blood VENOUS BLOOD SPECIMEN / Unknown Venipuncture / Unknown 01/03/2024 10:43 AM EDT 01/03/2024 10:45 AM EDT Nenita Grimes FILLING MACHINE OPERATOR CHEMISTRY ORDERABLES [facility] [place] [address] * Phosphorus (01/03/2024 10:43 AM EDT) Pathologist [facility] Phosphorus 3.4 2.5 - 4.5 mg/dL 01/03/2024 11:25 AM EDT [facility] Blood VENOUS BLOOD SPECIMEN / Unknown Venipuncture / Unknown 01/03/2024 10:43 AM EDT 01/03/2024 10:45 AM EDT Nenita Grimes APRN CHEMISTRY ORDERABLES [facility] [place] [address] * Albumin Level (01/03/2024 10:43 AM EDT) [facility] Albumin 4.1 3.2 - 5.2 g/dL 01/03/2024 11:25 AM EDT [facility] Blood VENOUS BLOOD SPECIMEN / Unknown Venipuncture / Unknown 01/03/2024 10:43 AM EDT 01/03/2024 10:45 AM EDT Nenita Grimes APRN CHEMISTRY ORDERABLES [facility] [place] [address] * (ABNORMAL) Basic Metabolic Panel (non-fasting) (01/03/2024 10:43 AM EDT) Pathologist [facility] Glucose 83 65 - 199 mg/dL 01/03/2024 11:25 AM EDT [facility] Comment:Glucose Concentratio n >=200 mg/dL plus symptoms is consistent with Diabetes Mellitus. Blood Urea Nitrogen 11 8 - 18 mg/dL 01/03/2024 11:25 AM EDT [facility] Creatinine 1.22(H) 0.70 - 1.20 mg/dL 01/03/2024 11:25 AM EDT [facility] Sodium 138 135 - 145 mMol/L 01/03/2024 11:25 AM EDT [facility] Potassium 4.2 3.5 - 5.0 mMol/L 01/03/2024 11:25 AM EDT [facility] Chloride 100 98 - 107 mMol/L 01/03/2024 11:25 AM EDT [facility] Carbon Dioxide 27 22 - 31 mMol/L 01/03/2024 11:[facility] Anion Gap 11 5 - 15 mMol/L 01/03/2024 11:25 AM EDT [facility] Calcium 9.5 8.5 - 10.5 mg/dL 01/03/2024 11:25 AM [facility] Est Glomerular Filtration Rate - Female 51 mL/min/1. 73 m?? 01/03/2024 11:25 AM [facility] Comment: This patient's estimated [...] Fasting Status No 01/03/2024 11:25 AM EDT [facility] Blood VENOUS BLOOD SPECIMEN / Unknown Venipuncture / Unknown 01/03/2024 10:43 AM EDT 01/03/2024 10:45 AM EDT Nenita Grimes APRN CHEMISTRY ORDERABLES [facility] [place] [address] from Last 3 Months Care Teams Supervisor Propellant Charge Loading Relationship Specialty Start Date End Date Yumiko Tavarez MD [address] [place], [place] [id number] PCP - General Family Medicine 07/07/16
--- OUTSIDE RECORDS SUMMARY | 2024-01-28 12:53 | XMS_ITS | Encounter Summary ---
Author Organization [place] [address] Care Team Providers Care Turbinated Bone Grinder Name Role Phone Yumiko Tavarez MD Primary Care Provider [phone] Reason for Referral * Consultation (Routine) - Authorized Specialty Diagnoses / Procedures Referred By Contac t Referred To Contact [facility] Diagnoses Cervicalgia Yumiko Tavarez MD [address] [place] [address] [facility] [place] [address] Referral ID Status Reason Start Date Expiration Date Visits Requested Visits Authorized [id number] Authorized Consult, Test & Treat PCP Updated and/or Approved 10/12/2023 04/13/2024 6 6 Encounter Details Date Type Department Care Team (Late st Contact Info) Description 10/26/2023 Transcribe Orders eDH Incoming Referrals [phone] Yumiko Tavarez MD [address] [place] [address] Cervicalgia Social History Tobacco Use [...] 1:00 PM EST [place] [address] Alta Caban APRN [facility] [place] [address] Scheduled Referrals Name Type Priority Associated Diagnoses Order Schedule Referral to Orthopaedics Outpatient Referral Routine Cervicalgia Ordered: 10/26/2023 documented as of this encounter Visit Diagnoses Diagnosis Cervicalgia documented in this encounter Care Teams Turbinated Bone Grinder Relationship Specialty Start Date End Date Yumiko Tavarez MD [address] [place] [address] PCP - General Family Medicine 07/07/16 documented as of this encounter
--- OUTSIDE RECORDS SUMMARY | 2024-01-28 12:53 | XMS_ITS | Encounter Summary ---
Author Organization [facility] Address [address] [place] [address] Care Team Providers Care Diamond Die Maker Name Role Phone Unknown, Provider Primary Care Provider Yumiko Loomis MD Primary Care Provider [phone] Reason for Visit * Reason Onset Date Comments New Patient Visit 12/18/2019 Encounter Details Date Type Department Care Team ([facility] Contact Info) Description 12/18/2019 Telephone [facility] Neurology - [address] [id number] Alta Walter MD [address] [place] [address] [address] 2 [place] [address] New Patient Visit Social History [...] Telephone Encounter - Geraldo Kwon - 12/25/2019 3719 EDT Outgoing call to clarify if pt [...] Visit [facility] Neurology - [address] [place] [address] [place], [place] [address] Alta Walter MD [address] [place] [address], [address] [place] [address] documented as of this encounter Visit Diagnoses Not on filedocumented in this encounter Care Teams Diamond Die Maker Relationship Specialty Start Date End Date Unknown, Provider, PCP - General 08/05/08 12/28/19 Yumiko Tavarez MD [address] [place] [phone] PCP - General 12/29/19 documented as of this encounter
--- OUTSIDE RECORDS SUMMARY | 2024-01-28 12:53 | XMS_ITS | Encounter Summary ---
Author Organization [facility] Address [address] [place] [address] Care Team Providers Care Roller Cleaner Name Role Phone Yumiko Tavarez MD Primary Care Provider [phone] Encounter Details Date Type Department Care Team (Late st Contact Info) Description 04/07/2020 Orders Only [facility] Radiology - [address] [id number] Sarkis Hearn MD [address] [place] [address] 1 [place] [phone] Social History Tobacco Use Types Packs/Day Years [...] Info) Description 02/13/2024 13:00 EST Office Visit [facility] Neurology - S [place] [address] [place] [phone] Alta Walter MD [address] [place] [address] 2 [place] [phone] documented as of this encounter Visit Diagnoses Not on filedocumented in this encounter Care Teams Roller Cleaner Relationship Specialty Start Date End Date Yumiko Tavarez MD [address] [place] [address] PCP - General 12/29/19 documented as of this encounter
--- OUTSIDE RECORDS SUMMARY | 2024-01-28 12:53 | XMS_ITS | Encounter Summary ---
Author Organization [facility] [place] [address] Care Team Providers Care Beauty Culturist Apprentice Name Role Phone Yumiko Tavarez MD Primary Care Provider [phone] Encounter Details Date Type Department Care Team (Late st Contact Info) Description 01/25/2024 [place] [address] Joao Lamb Social History Tobacco Use Types [...] 1:00 PM EST [place] [address] Alta Caban, [facility] [place] [address] documented as of this encounter Visit Diagnoses Not on filedocumented in this encounter Care Teams Beauty Culturist Apprentice Relationship Specialty Start Date End Date Yumiko Tavarez MD [address] [place] [address] PCP - General Family Medicine 07/07/16 documented as of this encounter
--- OUTSIDE RECORDS SUMMARY | 2024-01-28 12:53 | XMS_ITS | Encounter Summary ---
Author Organization [facility] Address [address] [place] [address] Care Team Providers Care High School Football Coach Name Role Phone Yumiko Tavarez MD Primary Care Provider [phone] Reason for Visit * Reason Onset Date Comments Appointment Related 01/30/2020 Encounter Details Date Type Department Care Team (Late st Contact Info) Description 01/30/2020 Telephone [facility] Neurology - [address] [phone] Alta Walter MD [address] [place] [address] [address] 2 [place] [address] Appointment Related Social History Tobacco [...] yet, no message could be left. No Integrated Diagnosticshart access. documented in this encounter Plan of Treatment Upcoming Encounters Date Type Department Care Team (Late st Contact Info) Description 02/13/2024 13:00 EST Office Visit [facility] Neurology - S [address] [address] Alta Walter MD 1 [facility], [address] [place] [address] documented as of this encounter Visit Diagnoses Not on filedocumented in this encounter Care Teams High School Football Coach Relationship Specialty Start Date End Date Yumiko Tavarez MD [address] [place] [address] PCP - General 12/29/19 documented as of this encounter
--- OUTSIDE RECORDS SUMMARY | 2024-01-28 12:53 | XMS_ITS | Encounter Summary ---
Author Organization [facility] Address [address] [place] [address] Care Team Providers Care Health Records Technology Teacher Name Role Phone Yumiko Tavarez MD Primary Care Provider [phone] Reason for Visit * Radiology Services (Routine) - Receiving Office to Obtain Authorization Specialty Diagnoses / Procedures Referred By Contac t Referred To Contact Nuclear Medicine Diagnoses Parkinsonism, unspecified Parkinsonism type (HCC-CMS) Procedures NM DATSCAN WITH SPECT/CT NM DATSCAN SPECT Alta Walter MD Phone: tel: fax: Referral ID Status Reason Start Date Expiration Date Visits Requested Visits Authorized [id number] Receiving Office to Obtain Authorization 04/07/2020 1 1 Encounter Details Date Type Department Care Team (Latest Contact Info) Description 05/20/2020 11:00 EDT - 05/20/2020 11:07 EDT Hospital Encounter [facility] Radiology Nuclear [place] [address] Parkinsonism, unspecified Parkinsonism type (HCC-CMS) Discharge Disposition: [...] [facility] Neurology - S [address] [phone] Atla Walter MD [address] [place] [address], Level 2 [place] [address] documented as of this encounter [...] accompanying low-dose CT. us Alta Walter MD [facility] [place] ORDERABLES Edited Res ult - Final [...] 05/20/2020 documented in this encounter Care Teams Health Records Technology Teacher Relationship Specialty Start Date End Date Yumiko Tavarez MD [address] [place] [phone] PCP - General 12/29/19 documented as of this encounter
--- OUTSIDE RECORDS SUMMARY | 2024-01-28 12:53 | XMS_ITS | Encounter Summary ---
Author Organization [facility] Address [address] [place] [address] Care Team Providers Care Medical Parasitologist Name Role Phone Unknown, Provider Primary Care Provider Yumiko Loomis MD Primary Care Provider [phone] Reason for Visit * Reason Onset Date Comments Appointment Related 11/18/2018 Encounter Details Date Type Department Care Team (Late st Contact Info) Description 11/18/2018 Telephone [facility] Neurology - S [address] [phone] Unknown, Provider, MD Appointment Related Social History [...] Description 02/13/2024 13:00 EST Office Visit [facility] Neurology - S [place] [address] [place] [address] Alta Walter MD [address] [place] [address], Level [address] [place] [phone] documented as of this encounter Visit Diagnoses Not on filedocumented in this encounter Care Teams Medical Parasitologist Relationship Specialty Start Date End Date Unknown, Provider, PCP - General 08/05/08 12/28/19 Yumiko Tavarez MD [address] [place] [phone] PCP - General 12/29/19 documented as of this encounter
--- OUTSIDE RECORDS SUMMARY | 2024-01-28 12:53 | XMS_ITS | Encounter Summary ---
Author Organization [facility] Address [address] [place] [address] Care Team Providers Care Special Education Educational Assistant Name Role Phone Yumiko Tavarez MD Primary Care Provider [phone] Reason for Visit * Reason Onset Date Comments Appointment Related 04/06/2020 Encounter Details Date Type Department Care Team (Late st Contact Info) Description 04/06/2020 Telephone [facility] Neurology - S [address] [phone] Alta Walter MD [address] [place] [address] [address] [place] [phone] Appointment Related Social History Tobacco Use Types [...] FUR/marielena Meeting ID: [id number] Password: [id number] documented in this encounter Plan of Treatment Upcoming Encounters Date Type Department Care Team (Late st Contact Info) Description 02/13/2024 13:00 EST Office Visit [facility] Neurology - S [address] [phone] Alta Walter MD [address] [place] [address], [address] [place] [phone] documented as of this encounter Visit Diagnoses Not on filedocumented in this encounter Care Teams Special Education Educational Assistant Relationship Specialty Start Date End Date Yumiko Tavarez MD [address] [place] [phone] PCP - General 12/29/19 documented as of this encounter
--- OUTSIDE RECORDS SUMMARY | 2024-01-28 12:53 | XMS_ITS | Encounter Summary ---
Author Organization [facility] Address [address] [place] [address] Care Team Providers Care Corn Husk Baler Name Role Phone Unknown, Provider Primary Care Provider Unava ilable Encounter Details Date Type Department Care Team (Late st Contact Info) Description 05/29/2007 Results Only [facility] - Maple conversion [address] [place] [address] Jerri Topete MD [address] [place] [address] [place] [address] Social History Tobacco Use Types Packs/Day Years [...] 02/13/2024 13:00 EST Office Visit [facility] Neurology - [address] [place] [address] [place], [place] [address] Alta Walter MD [address] [place] [address], Level 2 [place] [address] documented as of this encounter [...] 68. [facility] Report Status Final [id number] [facility] 05/29/2007 13:4 0 EDT 06/04/2007 14:32 EDT us Jerri Topete MD MICROBIOLOGY - GENERAL ORDERABL ES Final Result [facility] [address] [place] [address] * CYTOPATHOLOGY (05/29/2007 0:00 EDT) Pathology Report: CYTOPATHOLOGY REPORT Reports generated via electronic interface contain original data; however they are lacking the format of the original report. Caution should be taken when reading/interpreti ng unformatted reports. Name: ? ALMAZAN, CYDNEY ? Accession #: ? [id number] : ? 1965 (Age: 42) ??F ?Collect Date: ? 05/29/2007 Location: ? [facility] ? Receive Date: ? 05/30/2007 Provider: ?JERRI TOPETE MD Copy to: ? Specimen/Source: ?ThinPrep Pap Test, Cervix/Endocervix, processed on [facility] ThinPrep Imaging System, with manual evaluation Last [...] Final Resu lt [facility] [address] [place] [address] documented in this encounter Visit Diagnoses Not on filedocumented in this encounter Care Teams Corn Husk Baler Relationship Specialty Start Date End Date Unknown, Provider, PCP - General 08/05/08 12/28/19 documented as of this encounter
--- OUTSIDE RECORDS SUMMARY | 2024-01-28 12:53 | XMS_ITS | Encounter Summary ---
Author Organization [facility] Address [address] [place] [address] Care Team Providers Care Nailer Hand Name Role Phone Unknown, Provider Primary Care Provider Unava ilable Encounter Details Date Type Department Care Team (Late Contact Info) Description 11/10/2010 Results Only [facility] - [facility] ([facility] [address] [place] [address] Jerri Topete MD [address] [place] [address] [place] [address] Social History Tobacco Use Types Packs/Day Years [...] Office Visit [facility] - [address] [place] [address] [place], [place] [address] Alta Walter MD [address] [place] [address], Level 2 [place] [address] documented as of this encounter [...] ? ALMAZAN, CYDNEY ? Accession #: ? [id number] ? : ? 1965 (Age: 45) ??F [...] ORDERABLES Final Resu lt Performing Organization Address City/State/[facility] Co de Phone Number [facility] [address] [place] [address] documented in this encounter Visit Diagnoses Not on filedocumented in this encounter Care Teams Nailer Hand Relationship Specialty Start Date End Date Unknown, Provider, PCP - General 08/05/08 12/28/19 documented as of this encounter
--- OUTSIDE RECORDS SUMMARY | 2024-01-28 12:53 | XMS_ITS | Encounter Summary ---
[place] [address] Care Team Providers Care Elementary Special Education Teacher Name Role Phone Yumiko Tavarez MD Primary Care Provider [phone] Encounter Details Date Type Department Care Team [...] 1:00 PM EST [place] [address] Alta Caban APRN [facility] [place] [address] documented as of this encounter Visit Diagnoses Not on filedocumented in this encounter Care Teams Elementary Special Education Teacher Relationship Specialty Start Date End Date Yumiko Tavarez MD [address] [place] [address] PCP - General Family Medicine 07/07/16 documented as of this encounter
--- OUTSIDE RECORDS SUMMARY | 2024-01-28 12:53 | XMS_ITS | Encounter Summary ---
Author [facility] [place] [place] [address] Care Team Providers Care Catering Cook Name Role Phone Yumiko Tavarez MD Primary Care Provider [phone] Encounter Details Date Type Department Care Team (Latest Contact Info) Description 05/08/2023 2:30 PM EST Office Visit [place] [address] Nenita Grimes APRN [facility] [place] [address] Stage 3b chronic kidney disease; Hyperparathyroidism Social [...] from the original note were not included. [facility] NEPHROLOGY/HYPERTENSION CLINIC FOLLOW-UP NOTE [id number] ID: 58 y.o.year-old female seen for follow [...] in the evening naloxone (Narcan) 4 mg/actuation [place], Non-Aerosol 1 spray by Nasal route as [...] and is currently receiving care from a [facility] urology however she is unable to clearly [...] Negative mcL Appearance UA Clear Clear Spec [place] UA 1.016 1.005 - 1.030 Color UA [...] It is unclear why she is seeing [facility] urology, and I will need to contact [...] and coordination of care. Nenita Grimes APRN [facility] [address] 2nd floor, Motion Picture Operator [address] [place], [place] [id number] CC: Yumiko Tavarez MD @[email or web address]@ documented in this encounter Plan of Treatment Upcoming Encounters Date Type Department Care Team (Late st Contact Info) Description 02/04/2024 1:00 PM [place] [address] Alta Caban ELECTRONIC WARFARE OPERATOR [facility] [place] [address] Scheduled Orders Name Type Priority Associated Diagnoses [...] 2:02 PM EST) Creatinine, Urine 128 mg/dL [facility] Protein, Urine <6 0 - 12 mg/dL [facility] Protein / Creatinine Ratio, Urine <0.1 ratio [facility] Urine 05/08/2023 2:02 PM EST 05/08/2023 2:17 PM EST Narrative Resulting Agency Comment Spec In Lab Nenita Grimes APRN URINE ORD ERABLES [facility] [place] [address] * U Albumin/Cre Ratio (05/08/2023 2:02 PM EST) Albumin / Creatinin Ratio, Urine Not Calculated 0 - 29 mcg/mg Cr [facility] Comment: Reference Ranges: <30 mcg/mg: [...] 2, 357? 362 Albumin, Urine <3.0 mg/L [facility] Creatinine, Urine 128 mg/dL [facility] Urine 05/08/2023 2:02 PM EST 05/08/2023 2:17 PM EST Narrative Resulting Agency Comment Spec In Lab Nenita Grimes APRN URINE ORD ERABLES [facility] [place] [address] * (ABNORMAL) _Urinalysis with microscopic (05/08/2023 2:02 PM EST) Glucose, Urine Dipstick Negative Negative mg/dL [facility] Protein, Urine Dipstick Negative Negative mg/dL [facility] Bilirubin, Urine Dipstick Negative Negative mg/dL [facility] Comment: Clinical correlation required for positive Urine Bilirubin results as false positive may occur with some drugs and drug related products. If a false positive is suspected a serum total bilirubin should be considered if clinically indicated. Urobilinogen, Urine Dipstick Normal Normal mg/dL [facility] pH, Urn (dipstick) 5.5 5.0 - 8.0 [facility] Blood, Urine Dipstick Small(A) Negative mg/dL [facility] Ketone, Urine Dipstick Negative Negative mg/dL [facility] Nitrite, Urine Dipstick Negative Negative [facility] Leukocytes, Urine Dipstick Negative Negative mcL [facility] Appearance, Urine Dipstick Clear Clear [facility] Specific [place] Urine Automated 1.016 1.005 - 1.030 [facility] Color, Urine Dipstick Yellow Yellow [facility] RBC, Urine 2 0 - 4 /HPF [facility] WBC, Urine 1 0 - 5 /HPF [facility] Squamous Epithelial Cells Raw Data, Urine 1 <=4 /HPF [facility] Urine 05/08/2023 2:02 PM EST 05/08/2023 2:17 PM EST Narrative Resulting Agency Comment Spec In Lab Nenita W Cornelio ELECTRONIC WARFARE OPERATOR URINE ORD ERABLES Performing Organization Address City/State/[facility] Co de Phone Number [facility] [place] [address] documented in this encounter Visit Diagnoses Diagnosis Stage 3b chronic kidney disease Hyperparathyroidism Hyperparathyroidism, unspecified documented in this encounter Care Teams Catering Cook Relationship Specialty Start Date End Date Yumiko Tavarez MD [address] [place] [address] PCP - General Family Medicine 07/07/16 documented as of this encounter
--- OUTSIDE RECORDS SUMMARY | 2024-01-28 12:53 | XMS_ITS | Encounter Summary ---
Author Organization [facility] Address [address] [place] [address] Care Team Providers Care Language Therapist Name Role Phone Yumiko Tavarez MD Primary Care Provider [phone] Reason for Referral * Consult (Routine/Next Available) - Closed Specialty Diagnoses / Procedures Referred By Warren dennis Referred To Contact Neurology Diagnoses Tardive dyskinesia Functional neurological symptom disorder with abnormal movement Anxiety Alta Walter MD Phone: tel: fax: Cat Dorantes MD Phone: tel: fax: Referral ID Status Reason Start Date Expiration Date V isits Requested Visits Authorized [id number] Closed Specialty Services Required 05/26/2020 1 1 Question Answer Reason for Request: Patient with history of anxiety, depression, PTSD who 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 Reason for Visit * Reason Comments Follow-up Encounter Details Date Type Department Care Team (Late st Contact Info) Description 05/26/2020 10:30 EDT Telemedicine [facility] Neurology - [address] [place] [address] [place] [address] Alta Walter MD [address] [place] [address], Level 2 [place] [address] Tardive dyskinesia (Primary Dx); Functional [...] for this encounter. Phone: N/A Fax: Primary Computer Systems Technology Instructor: Yumiko Tavarez [address] [place] [phone] ASSESSMENT & PLAN / RECOMMENDATIONS 1. Tardive [...] difficulty - has dysphagia, referral sent to [facility] Current Medications: Outpatient Medications Marked [...] naloxone (NARCAN) 4 mg/actuation nasal spray 1 [place] by nasal route as needed. ??? 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 Alta Thakkar MD Attending Physician, Movement Disorders Department of Neurology documented in this encounter Plan of Treatment Upcoming Encounters Date Type Department Care Team (Late st Contact Info) Description 02/13/2024 13:00 EST Office Visit [facility] Neurology - S [address] [phone] Alta Walter MD [address] [place] [address] Level [address] [place] [phone] Scheduled Referrals Name Type Priority Associated Diagnoses [...] documented as of this encounter Care Teams Language Therapist Relationship Specialty Start Date End Date Yumiko Tavarez MD [address] [place] [phone] PCP - General 12/29/19 documented as of this encounter
--- OUTSIDE RECORDS SUMMARY | 2024-01-28 12:53 | XMS_ITS ---
Author Organization [facility] Address [address] [place] [address] Care Team Providers Care Probation Supervisor Name Role Phone Yumiko Tavarez MD Primary Care Provider [phone] Neurology Status:Discharged (Closed) Start date:03/03/2021 Enrollment date:03/03/2021 End date:05/20/2021 Continued Care and Services Coordination
--- OUTSIDE RECORDS SUMMARY | 2024-01-28 12:53 | XMS_ITS | Encounter Summary ---
Author Organization [facility] Address [address] [place] [address] Care Team Providers Care It Trainer Name Role Phone Unknown, Provider MD Primary Care Provider Unava ilable Encounter Details Date Type Department Care Team (Late st Contact Info) Description 01/19/2016 Results Only [facility] [phone] Jerri Topete MD [address] [place] [address] [place] [address] Social History Tobacco Use Types Packs/Day Years [...] Info) Description 02/13/2024 13:00 EST Office Visit [facility] Neurology - [address] [place] [address] [place] [phone] Alta Walter MD [address] [place] [address], Level 2 [place] [phone] documented as of this encounter Procedures Procedure [...] ? CYDNEY ALMAZAN ? Accession #: ? [id number] ? : ? 1965 (Age: 50) ??F [...] types 16,18,31,33,35, 39,45,51,52,56,58, 59,66, and 68 by it disaster recovery manager mediated amplification. Comments Document reviewed and electronically signed by: ? System Interface ? Report date: 01/31/2016 By the signature above, the attending physician certifies that he/she has personally conducted a gross and/or microscopic examination of the described specimens and rendered or confirmed the above diagnosis. End of Report [facility] 01/19/2016 01/20/2016 us Jerri Topete MD PATHOLOGY ORDERABLES Final Resu lt [facility] [address] [place] [address] documented in this encounter Visit Diagnoses Not on filedocumented in this encounter Care Teams It Trainer Relationship Specialty Start Date End Date Unknown, Provider, PCP - General 08/05/08 12/28/19 documented as of this encounter
--- OUTSIDE RECORDS SUMMARY | 2024-01-28 12:53 | XMS_ITS | Encounter Summary ---
Author Organization [facility] Address [address] [place] [address] Care Team Providers Care Returner Name Role Phone Yumiko Tavarez MD Primary Care Provider [phone] Reason for Visit * Reason Onset Date Comments Other 04/06/2020 Encounter Details Date Type Department Care Team (Late st Contact Info) Description 04/06/2020 Telephone [facility] Neurology - S [address] [phone] Alta Walter MD [address] [place] [address] Level 2 [place] [address] Other Social History Tobacco Use [...] Encounter - Kane Parker RN - 04/07/2020 0940 EST Spoke with pt's pharmacy- they report that they can get the Lugol's solution and have already ordered it for the pt. Informed pt that Dr Thakkar ordered the Valentin scan and the lugol's solution was sent to [facility]-they will call her when ready. Informed her that she would receive a call from [facility] radiology to schedule the scan. She [...] she is still recommending it. Preferred pharmacy [facility] in [place], [place] * Telephone Encounter - Kena Marshall [...] Visit [facility] Neurology - S [address] [address] Alta Walter MD [address] [place] [address] 2 [place] [address] documented as of this encounter Visit Diagnoses Diagnosis Parkinsonism, unspecified Parkinsonism type (HCC-CMS)- Primary documented in this encounter Care Teams Returner Relationship Specialty Start Date End Date Yumiko Tavarez MD [address] [place] [phone] PCP - General 12/29/19 documented as of this encounter
--- OUTSIDE RECORDS SUMMARY | 2024-01-28 12:53 | XMS_ITS | Encounter Summary ---
Author Organization [facility] Address [address] [place] [address] Care Team Providers Care Warehouse Delivery Driver Name Role Phone Yumiko Tavarez MD Primary Care Provider [phone] Reason for Visit * Reason Onset Date Comments Medication Management 06/01/2020 pt needs a ssistance acquiring this medication Encounter Details Date Type Department Care Team (Late st Contact Info) Description 06/01/2020 Telephone [facility] Neurology - S [address] [phone] Alta Walter MD [address] [place] [address] Level 2 [place] [address] Medication Management (pt needs assistance [...] to. We first sent this script to [facility] in [place], they do not do specialty meds. Then we sent it to [facility] yesterday. Pt called [facility] and they said to pt that her insuranceco. will not pay for it. Pt uses [facility]. [facility] called pt's insurance company and the insurance said to go onto a certain website and request a prior authorization. Website: [email or web address] Insurance company wants to use [facility] once the prior auth is obtained. 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
--- OUTSIDE RECORDS SUMMARY | 2024-01-28 12:53 | XMS_ITS | Encounter Summary ---
Author Organization [facility] Address [address] [place] [address] Care Team Providers Care Youth Coordinator Name Role Phone Yumiko Tavarez MD Primary Care Provider [phone] Reason for Visit * Reason Onset Date Comments Other 05/21/2020 Encounter Details Date Type Department Care Team (Late st Contact Info) Description 05/21/2020 Telephone [facility] Neurology - S [address] [phone] Alta Walter MD [address] [place] [address] Level 2 [place] [address] Other Social History Tobacco Use [...] nurse has not heard back from Dr Hartley yet. She will reach out when received response back. documented in this encounter Plan of Treatment Upcoming Encounters Date Type Department Care Team (Late st Contact Info) Description 02/13/2024 13:00 EST Office Visit [facility] Neurology - S [address] [address] Alta Walter MD [address] [place] [address] Level [address] [place] [address] documented as of this encounter Visit Diagnoses Not on filedocumented in this encounter Care Teams Youth Coordinator Relationship Specialty Start Date End Date Yumiko Tavarez MD [address] [place] [address] PCP - General 12/29/19 documented as of this encounter
--- OUTSIDE RECORDS SUMMARY | 2024-01-28 12:53 | XMS_ITS | Encounter Summary ---
Author Organization [facility] Address [address] [place] [address] Care Team Providers Care Conference Services Director Name Role Phone Yumiko Tavarez MD Primary Care Provider [phone] Reason for Visit * Reason Onset Date Comments Results 05/21/2020 Encounter Details Date Type Department Care Team (Late st Contact Info) Description 05/21/2020 Telephone [facility] Neurology - S [address] [phone] Alta Walter MD [address] [place] [address] Level 2 [place] [address] Results Social History Tobacco Use [...] Encounter - Sunni Ivey RN - 05/21/2020 2332 EDT Miguelina sent a detailed [employer] message to get the Tyrell scan results. [...] Visit [facility] Neurology - S [address] [phone] Alta Walter MD [address] [place] [address], Level [address] [place] [phone] documented as of this encounter Visit Diagnoses Not on filedocumented in this encounter Care Teams Conference Services Director Relationship Specialty Start Date End Date Yumiko Tavarez MD [address] [place] [phone] PCP - General 12/29/19 documented as of this encounter
--- OUTSIDE RECORDS SUMMARY | 2024-01-28 12:53 | XMS_ITS | Encounter Summary ---
Author Organization [facility] Address [address] [place] [address] Care Team Providers Care Office Runner Name Role Phone Unknown, Provider Primary Care Provider Yumiko Loomis MD Primary Care Provider [phone] Encounter Details Date Type Department Care Team (Latest Contact Info) Description 01/20/2019 Lab Requisition [facility] Pathology & Laboratory Medicine - [address] [address] Yumiko Tavarez MD [address] [place] [phone] Encounter for general adult medical examination without [...] Info) Description 02/13/2024 13:00 EST Office Visit [facility] Neurology - S [address] [address] Alta Walter MD [address] [place] [address] Level 2 [place] [phone] documented as of this encounter Procedures Procedure [...] types, PCR Positive( A) Negative 01/22/2019 15:05 [facility] Comment:E6 OR E7 mRNA from o ne or more types of HPV types 16,18,31,33,35,39,45,51,52,56,58,59,66, and 68 is detected by rock cutter mediated amplification. High and intermediate risk HPV types are associated with most squamous intraepithelial lesions and cervical cancers. Papanicolaou smear specimen (specimen) CERVIX UTERI STRUCTURE / Unknown 01/16/2019 14:00 EST 01/21/2019 9:36 EST us Yumiko Tavarez MD MICROBIOLOGY - GENERAL ORDERAB LES Final Result [facility] [address] [place] [address] * PAP TEST (01/16/2019 14:00 EST) Specimens A. Cervix and/or Endocervix, , ThinPrep Imaging System with Manual Evaluation 01/22/2019 15:05 [facility] Specimen Adequacy Satisfactory for Evaluation - transformation zone component present 01/22/2019 15:05 [facility] General Categorization Negative for intraepithelial lesion or malignancy 01/22/2019 15:05 [facility] Attestation . 01/22/2019 15:05 [facility] at 1505 Clinical History NONE 01/23/20 19 15:05 EST [facility] HPV The result for the Human Papillomavirus (HPV) Detection-High Risk Types is Positive . E6 OR E7 mRNA from one or more types of HPV types 16,18,31,33,35,39 ,45,51,52,56,58,5 9,66, and 68 is detected by rock cutter mediated amplification. High and intermediate risk HPV types are associated with most squamous intraepithelial lesions and cervical cancers. Testing was performed on specimen [id number] and was resulted on 01/22/2019 1503 EST by ANTHONY, LAB INSTRUMENT RESULTS IN 01/22/2019 15:05 EST [facility] Scanned Images 01/22/2019 15:05 EST [facility] Papanicolaou smear specimen (specimen) CERVIX UTERI STRUCTURE / Unknown 01/16/2019 14:00 EST 01/20/2019 9:08 EST us Yumiko Tavarez MD PATHOLOGY ORDERABLES Final Res ult [facility] [address] [place] [address] documented in this encounter Visit Diagnoses Diagnosis Encounter for general adult medical examination without abnormal findings Unspecified general medical examination Encounter for gynecological examination (general) (routine) without abnormal findings Encounter for screening for malignant neoplasm of cervix Screening for malignant neoplasm of the cervix documented in this encounter Care Teams Office Runner Relationship Specialty Start Date End Date Unknown, Provider, PCP - General 08/05/08 12/28/19 Yumiko Tavarez MD [address] [place] [address] PCP - General 12/29/19 documented as of this encounter
--- OUTSIDE RECORDS SUMMARY | 2024-01-28 12:53 | XMS_ITS | Encounter Summary ---
Author Organization [facility] [place] [address] Care Team Providers Care Shook Machine Operator Name Role Phone Yumiko Tavarez MD Primary Care Provider [phone] Encounter Details Date Type Department Care Team (Latest Contact Info) Description 01/03/2024 11:30 AM EDT Office Visit Neph[place] [phone] Nenita Grimes ROBOT PROGRAMMER [facility] [place] [address] Hypertension, unspecified type; Hyperparathyroidism; Stage 3 chronic [...] encounter Progress Notes * Nenita Grimes W, ROBOT PROGRAMMER - 01/03/2024 11:30 AM EDT Images from the original note were not included. [facility] NEPHROLOGY/HYPERTENSION CLINIC FOLLOW-UP NOTE [id number] ID: 58 y.o.year-old female seen for follow [...] in the evening naloxone (Narcan) 4 mg/actuation [place], Non-Aerosol 1 spray by Nasal route as [...] She expressed displeasure with her urologist at [facility] and has requested to have a 2nd opinon with [facility] urology she stated this has been discussed [...] no clinical indication for renal replacement therapy (MANAGER OF CLINICAL). 2. Anemia: Hgb 12.5 Hemoglobin levels fall [...] and coordination of care. Nenita W Waldron-Dot, ROBOT PROGRAMMER [facility] 2nd floor, Hot Dip Tinning Supervisor [address] [place] [id number] CC: Yumiko Tavarez MD [email or web address] documented in this encounter Plan of Treatment Upcoming Encounters Date Type Department Care Team (Late st Contact Info) Description 02/04/2024 1:00 PM EST Office [place] [address] Alta Caban APRN [facility] [place] [address] documented as of this encounter Visit Diagnoses Diagnosis Hypertension, unspecified type Hyperparathyroidism Hyperparathyroidism, unspecified Stage 3 chronic kidney disease, unspecified whether stage 3a or 3b CKD Tardive dyskinesia Subacute dyskinesia due to drugs Functional neurological symptom disorder with abnormal movement documented in this encounter Care Teams Shook Machine Operator Relationship Specialty Start Date End Date Yumiko Tavarez MD [address] [place] [address] PCP - General Family Medicine 07/07/16 documented as of this encounter
--- OUTSIDE RECORDS SUMMARY | 2024-01-28 12:53 | XMS_ITS | Encounter Summary ---
Author Organization [facility] Address [address] [place] [address] Care Team Providers Care Rounding And Backing Machine Operator Name Role Phone Yumiko Tavarez MD Primary Care Provider [phone] Encounter Details Date Type Department Care Team (Late st Contact Info) Description 03/12/2020 Lab Requisition [facility] Pathology & Laboratory Medicine - [facility] [address] [place] [address] Yoli Jeong MD [address] [place] [address],[address] [id number] Encounter for other general examination Social History [...] Visit [facility] Neurology - [place] [address] [place] [id number] Alta Walter MD [address] [place] [address], [address] [place] [phone] documented as of this encounter Procedures Procedure [...] epithelial change. - Chronic cervicitis 03/17/2020 16:48 [facility] Diagnosis Comment Within the endocervical curettage (A), there is an isolated fragment of squamous epithelium with cytologic changes that are suspicious but not fully diagnostic for a low-grade squamous intraepithelial lesion (CODI 1). Deeper sections have been examined. 03/17/2020 16:48 [facility] Attestation There was significant resident/fellow involvement in the diagnostic evaluation of this case. By the signature below, the attending physician certifies that they have personally conducted a gross and/or microscopic examination of the described specimens and rendered or confirmed the above diagnosis. 03/17/2020 16:48 [facility] at 1648 Clinical History ASCUS, (+) HPV 03/17/2020 16:48 [facility] Gross Description A. Received in [...] B1. CHRIS ULLOA(ASCP) 03/15/2020 8:30 03/17/2020 16:48 [facility] Resident/Julio César w: Jonah Patterson MD 03/17/2020 16:48 [facility] Performing Lab [facility] 16:48 EST [facility] Scanned Images 03/17/2020 16:48 EST [facility] Tissue ENTIRE WALL OF CERVIX / Unknown 03/12/2020 15:35 EST 03/12/2020 21:23 EST Tissue specimen (specimen) CERVIX UTERI STRUCTURE / Unknown 03/12/2020 15:35 EST 03/12/2020 21:23 EST us Yoli Jeong MD PATHOLOGY ORDERABLES Final Res ult [facility] [address] [place] [address] documented in this encounter Visit Diagnoses Diagnosis Encounter for other general examination documented in this encounter Care Teams Rounding And Backing Machine Operator Relationship Specialty Start Date End Date Yumiko Tavarez MD [address] [place] [phone] PCP - General 12/29/19 documented as of this encounter
--- OUTSIDE RECORDS SUMMARY | 2024-01-28 12:53 | XMS_ITS | Encounter Summary ---
Author Organization [facility] [place] [address] Care Team Providers Care Quantitative Software Engineer Name Role Phone Yumiko Tavarez MD Primary Care Provider [phone] Encounter Details Date Type Department Care Team (Latest Contact Info) Description 05/08/2023 3:00 PM EST Laboratory Appointment Lab [address] [place] [phone] Stage 3a chronic kidney disease; Hyperparathyroidism Social [...] 1:00 PM EST Office [place] [phone] Alta Caban APRN [facility] [place] [address] documented as of this encounter Procedures Procedure [...] EST) Glucose, Urine Dipstick Negative Negative mg/dL [facility] Protein, Urine Dipstick Negative Negative mg/dL [facility] Bilirubin, Urine Dipstick Negative Negative mg/dL [facility] Comment: Clinical correlation required for positive Urine Bilirubin results as false positive may occur with some drugs and drug related products. If a false positive is suspected a serum total bilirubin should be considered if clinically indicated. Urobilinogen, Urine Dipstick Normal Normal mg/dL [facility] pH, Urn (dipstick) 5.5 5.0 - 8.0 [facility] Blood, Urine Dipstick Small(A) Negative mg/dL [facility] Ketone, Urine Dipstick Negative Negative mg/dL [facility] Nitrite, Urine Dipstick Negative Negative [facility] Leukocytes, Urine Dipstick Negative Negative mcL [facility] Appearance, Urine Dipstick Clear Clear [facility] Specific Oliver Urine Automated 1.016 1.005 - 1.030 [facility] Color, Urine Dipstick Yellow Yellow [facility] RBC, Urine 2 0 - 4 /HPF [facility] WBC, Urine 1 0 - 5 /HPF [facility] Squamous Epithelial Cells Raw Data, Urine 1 <=4 /HPF [facility] Urine 05/08/2023 2:02 PM EST 05/08/2023 2:17 PM EST Narrative Resulting Agency Comment Spec In Lab Nenita Grimes BELLHOP SERVICE CAPTAIN URINE ORD ERABLES [facility] [place] [address] * U Albumin/Cre Ratio (05/08/2023 2:02 PM EST) Albumin / Creatinin Ratio, Urine Not Calculated 0 - 29 mcg/mg Cr [facility] Comment: Reference Ranges: <30 mcg/mg: [...] 2, 357? 362 Albumin, Urine <3.0 mg/L [facility] Creatinine, Urine 128 mg/dL [facility] Urine 05/08/2023 2:02 PM EST 05/08/2023 2:17 PM EST Narrative Resulting Agency Comment Spec In Lab Nenita Grimes APRN URINE ORD ERABLES Performing Organization Address City/[facility]/ZIP Co de Phone Number [facility] [place] [address] * Protein/Creatinine Ratio, urine (05/08/2023 2:02 PM EST) Creatinine, Urine 128 mg/dL [facility] Protein, Urine <6 0 - 12 mg/dL [facility] Protein / Creatinine Ratio, Urine <0.1 ratio [facility] Urine 05/08/2023 2:02 PM EST 05/08/2023 2:17 PM EST Narrative Resulting Agency Comment Spec In Lab Nenita Grimes APRN URINE ORD ERABLES Performing Organization Address City/[facility] Co de Phone Number [facility] [place] [address] * Differential, Automated (05/08/2023 1:54 PM EST) Neutrophil % 51.6 % [facility] Neutrophil Absolute 3.08 1.70 - 6.10 x10(3)/[facility] Lymph % 39.8 % [facility] Lymphocytes Abs 2.4 0.9 - 3.2 x10(3)/[facility] Monocyte % 6.9 % [facility] Monocyte Abs 0.4 0.3 - 0.9 x10(3)/[facility] Eos % 1.2 % [facility] Eosinophils Abs 0.1 0.0 - 0.4 x10(3)/[facility] Basophil % 0.3 % [facility] Baso Absolute 0.0 0.0 - 0.1 x10(3)/[facility] Immature Gran % 0.20 % [facility] Comment: Immature granulocytes(IG's)percentage and absolute count will include metamyelocytes, myelocytes, and promyelocytes. Blood smears from CBCs yielding IG's will be scanned manually for concordance. If this scan disagrees with the automated IG or if promyelocytes are noted, a manual differential will be performed. Immature Gran Absolute 0.01 0.00 - 0.04 x10(3)/mcL [facility] Blood 05/08/2023 1:54 PM EST 05/08/2023 2:00 PM EST Narrative Resulting Agency Comment Spec In Lab Ligia Isaac John ROBERTN HEMATOLOGY ORDERABLE S [facility] [place] [address] * (ABNORMAL) Hemogram (05/08/2023 1:54 PM EST) White Blood Cell 6.0 4.0 - 9.5 x10(3)/mc L [facility] Red Blood Cell 3.94(L) 4.00 - 5.21 x10(6)/mc L [facility] Hemoglobin 12.9 11.7 - 15.5 g/dL [facility] Hematocrit 39.0 35.7 - 45.8 % [facility] Mean Cell Volume 99.0(H) 82.6 - 94.4 fL [facility] Mean Cell Hemoglobin 32.7(H) 27.1 - 32.0 pg [facility] Mean Cell Hemoglobin Concentration 33.1 31.7 - 35.0 g/dL [facility] Platelet 207 145 - 357 x10(3)/mc L [facility] RDW Standard Deviation 42.5 37.0 - 46.0 fL [facility] RDW coefficient of variation 11.7 11.5 - 14.1 % [facility] Mean Platelet Volume 10.9 7.6 - 12.9 fL [facility] NRBC% auto 0.0 % [facility] NRBC Absolute 0.000 0.000 - 0.000 x10(3)/mc L [facility] Blood 05/08/2023 1:54 PM EST 05/08/2023 2:00 PM EST Narrative Resulting Agency Comment Spec In Lab Ligia Isaac John LERNER HEMATOLOGY ORDERABLE S Performing Organization Address City/[facility]/ZIP Co de Phone Number [facility] [place] [address] * (ABNORMAL) Basic Metabolic Panel (non-fasting) (05/08/2023 1:54 PM EST) Glucose 89 65 - 199 mg/dL [facility] Comment:Diabetes: >=200 mg/d L plus symptoms Blood Urea Nitrogen 11 8 - 18 mg/dL [facility] Creatinine 1.45(H) 0.70 - 1.20 mg/dL [facility] Sodium 140 135 - 145 mmol/L [facility] Potassium 4.0 3.5 - 5.0 mmol/L [facility] Comment: Please note: ??Patients with WBC >100,000 may have falsely elevated Potassium levels. ??For accurate Potassium quantification in these patients send serum separator tube (gold top) for subsequent determinations. ??Contact the Clinical Chemistry Laboratory if there are any questions. Chloride 102 98 - 107 mmol/L [facility] Carbon Dioxide 29 22 - 31 mmol/L [facility] Anion Gap 9 5 - 15 mmol/L [facility] Calcium 9.2 8.5 - 10.5 mg/dL [facility] Est Glomerular Filtration Rate 41(L) >=60 mL/min/1. 73 m?? [facility] Comment: This patient's estimated GFR [...] In Lab Ligia Lopez APRN CHEMISTRY ORDERABLES [facility] [place] [address] * (ABNORMAL) PTH (05/08/2023 1:54 PM EST) Parathyroid Hormone 84(H) 15 - 65 pg/mL [facility] Blood 05/08/2023 1:54 PM EST 05/08/2023 2:00 PM EST Narrative Resulting Agency Comment Spec In Lab Ligia Lopez APRN CHEMISTRY ORDERABLES [facility] [place] [address] * Albumin Level (05/08/2023 1:54 PM EST) Albumin 4.1 3.2 - 5.2 g/dL [facility] Blood 05/08/2023 1:54 PM EST 05/08/2023 2:00 PM EST Narrative Resulting Agency Comment Spec In Lab Ligia Lopez APRN CHEMISTRY ORDERABLES Performing Organization Address City/[facility]/ZIP Co de Phone Number [facility] [place] [address] * (ABNORMAL) Uric acid (05/08/2023 1:54 PM EST) Uric Acid 6.8(H) 2.5 - 6.5 mg/dL [facility] Blood 05/08/2023 1:54 PM EST 05/08/2023 2:00 PM EST Narrative Resulting Agency Comment Spec In Lab Ligia Lopez APRN CHEMISTRY ORDERABLES Performing Organization Address City/[facility]/ZIP Co de Phone Number [facility] [place] [address] * Phosphorus (05/08/2023 1:54 PM EST) Phosphorus 3.6 2.5 - 4.5 mg/dL [facility] Blood 05/08/2023 1:54 PM EST 05/08/2023 2:00 PM EST Narrative Resulting Agency Comment Spec In Lab Ligia Lopez APRN CHEMISTRY ORDERABLES Performing Organization Address City/[facility]/ZIP Co de Phone Number [facility] [place] [address] * Vitamin D, 25-Hydroxy (05/08/2023 1:54 PM EST) Vitamin D Total 25 OH 47 21 - 100 ng/mL [facility] Vit D Interp Sufficient [facility] Blood 05/08/2023 1:54 PM EST 05/08/2023 2:00 PM EST Narrative Resulting Agency Comment Spec In Lab Ligia Lopez BELLHOP SERVICE CAPTAIN CHEMISTRY ORDERABLES Performing Organization Address City/State/[facility] Co de Phone Number [facility] [place] [address] documented in this encounter Visit Diagnoses Diagnosis Stage 3a chronic kidney disease Hyperparathyroidism Hyperparathyroidism, unspecified documented in this encounter Care Teams Quantitative Software Engineer Relationship Specialty Start Date End Date Yumiko Tavarez MD [address] [place] [address] PCP - General Family Medicine 07/07/16 documented as of this encounter
--- OUTSIDE RECORDS SUMMARY | 2024-01-28 12:53 | XMS_ITS | Encounter Summary ---
Author Organization [facility] [place] [address] Care Team Providers Care Personnel Generalist Manager Name Role Phone Yumiko Tavarez MD Primary Care Provider [phone] Encounter Details Date Type Department Care Team (Latest Contact Info) Description 01/03/2024 10:00 AM EDT Laboratory Appointment Lab [address] [place] [id number] Stage 3a chronic kidney disease; Stage 3 [...] 1:00 PM EST [place] [phone] Alta Caban APRN [facility] [place] [address] documented as of this encounter Procedures Procedure Name Priority Date/Time Associated Diagnosis Comments URINALYSIS BEAKER MICROSCOPIC ([facility]/[place]) Routine 01/03/2024 10:43 AM EDT Stage 3a [...] - 4 /HPF 01/03/2024 12:03 PM EDT [facility] WBC, Urine 35(H) 0 - 5 /HPF 01/03/2024 12:03 PM EDT [facility] Squamous Epithelial Cells, Urine 7(H) 0 - 5 /HPF 01/03/2024 12:03 PM EDT [facility] Hyaline Casts, Urine 3(H) 0 - 2 /LPF 01/03/2024 12:03 PM EDT [facility] Comment 01/03/2024 12:03 PM EDT [facility] Comment:Interpret results wi th caution, microscopic results are from a suboptimal specimen. Bacteria, Urine Moderate( A) None /HPF 01/03/2024 12:03 PM EDT [facility] Urine Non Blood Collection / Unknown 01/03/2024 10:43 AM EDT 01/03/2024 10:45 AM EDT Nenita Hany WaldronYoselinaraemeka ROBERTN URINE ORD ERABLES Performing Organization Address [facility] de Phone Number [facility] [place] [address] * Urinalysis Microscopic Exam (01/03/2024 10:43 AM EDT) Urine Non Blood Collection / Unknown 01/03/2024 10:43 AM EDT 01/03/2024 10:45 AM EDT Nenita Hany WaldronYoselinaraemeka ROBERTN URINE ORD ERABLES Performing Organization Address [facility] Co de Phone Number [facility] [place] [address] * (ABNORMAL) Urinalysis Dipstick (01/03/2024 10:43 AM EDT) Glucose, Urine Dipstick Negative Negative 01/03/2024 12:03 PM EDT [facility] Protein, Urine Dipstick Negative Negative 01/03/2024 12:03 PM EDT [facility] Bilirubin, Urine Dipstick Negative Negative 01/03/2024 12:03 PM EDT [facility] Comment:Clinical correlation required for positive Urine Bilirubin results as false positive may occur with some drugs and drug related products. If a false positive is suspected a serum total bilirubin should be considered if clinically indicated. Urobilinogen, Urine Dipstick Normal Normal, 0.2 mg/dL, 1.0 mg/dL 01/03/2024 12:03 PM EDT [facility] pH, Urine (dipstick) 7.5 5.0 - 8.0 01/03/2024 12:03 PM EDT [facility] Blood, Urine Dipstick Negative Negative 01/03/2024 12:03 PM EDT [facility] Ketone, Urine Dipstick Negative Negative 01/03/2024 12:03 PM EDT [facility] Nitrite, Urine Dipstick Negative Negative 01/03/2024 12:03 PM EDT [facility] Leukocytes, Urine Dipstick Large(A) Negative 01/03/2024 12:03 PM EDT [facility] Specific [place] Urine Automated 1.010 1.005 - 1.030 01/03/2024 12:03 PM EDT [facility] Appearance, Urine Dipstick Cloudy(A) Clear 01/03/2024 12:03 PM EDT [facility] Color, Urine Dipstick Yellow Yellow, Dark Yellow 01/03/2024 12:03 PM EDT [facility] CULTURE ADDED? 01/03/2024 12:03 PM EDT [facility] Urine Non Blood Collection / Unknown 01/03/2024 10:43 AM EDT 01/03/2024 10:45 AM EDT Nenita Grimes APRN URINE ORD ERABLES [facility] [place] [address] * Albumin Level (01/03/2024 10:43 AM EDT) Albumin 4.1 3.2 - 5.2 g/dL 01/03/2024 11:25 AM EDT [facility] Blood VENOUS BLOOD SPECIMEN / Unknown Venipuncture / Unknown 01/03/2024 10:43 AM EDT 01/03/2024 10:45 AM EDT Nenita Grimes YANN CHEMISTRY ORDERABLES [facility] [place] [address] * (ABNORMAL) Basic Metabolic Panel (non-fasting) (01/03/2024 10:43 AM EDT) Glucose 83 65 - 199 mg/dL 01/03/2024 11:25 AM EDT [facility] Comment:Glucose Concentratio n >=200 mg/dL plus symptoms is consistent with Diabetes Mellitus. Blood Urea Nitrogen 11 8 - 18 mg/dL 01/03/2024 11:25 [facility] Creatinine 1.22(H) 0.70 - 1.20 mg/dL 01/03/2024 11:25 AM T [facility] Sodium 138 135 - 145 mMol/L 01/03/2024 11:25 AM [facility] Potassium 4.2 3.5 - 5.0 mMol/L 01/03/2024 11:25 AM [facility] Chloride 100 98 - 107 mMol/L 01/03/2024 11:25 AM [facility] Carbon Dioxide 27 22 - 31 mMol/L 01/03/2024 11:25 AM [facility] Anion Gap 11 5 - 15 mMol/L 01/03/2024 11:25 AM [facility] Calcium 9.5 8.5 - 10.5 mg/dL 01/03/2024 11:25 AM [facility] Est Glomerular Filtration Rate - Female 51 mL/min/1. 73 m?? 01/03/2024 11:25 AM [facility] Comment: This patient's estimated GFR [...] Fasting Status No 01/03/2024 11:25 AM EDT [facility] Blood VENOUS BLOOD SPECIMEN / Unknown Venipuncture / Unknown 01/03/2024 10:43 AM EDT 01/03/2024 10:45 AM EDT Nenita Grimes APRN CHEMISTRY ORDERABLES [facility] [place] [address] * (ABNORMAL) CBC (with Diff) (01/03/2024 10:43 AM EDT) White Blood Cell 5.51 4.00 - 9.50 x10(3)/mc L 01/03/2024 11:16 AM [facility] Red Blood Cell 3.80(L) 4.00 - 5.21 x10(6)/mc L 01/03/2024 11:16 AM [facility] Hemoglobin 12.5 11.7 - 15.5 g/dL 01/03/2024 11:16 AM [facility] Hematocrit 38.7 35.7 - 45.8 % 01/03/2024 11:16 AM [facility] Mean Cell Volume 101.8(H) 82.6 - 94.4 fL 01/03/2024 11:16 AM [facility] Mean Cell Hemoglobin 32.9(H) 27.1 - 32.0 pg 01/03/2024 11:16 AM [facility] Mean Cell Hemoglobin Concentration 32.3 31.7 - 35.0 g/dL 01/03/2024 11:16 AM [facility] Platelet 217 145 - 357 x10(3)/mc L 01/03/2024 11:16 AM [facility] Mean Platelet Volume 11.1 7.6 - 12.9 fL 01/03/2024 11:16 AM [facility] RDW Standard Deviation 46.0 37.0 - 46.0 fL 01/03/2024 11:16 AM [facility] RDW coefficient of variation 12.2 11.5 - 14.1 % 01/03/2024 11:16 AM [facility] NRBC% auto 0.0 % 01/03/2024 11:16 AM [facility] NRBC Absolute <0.01 <0.01 x10(3)/mc L 01/03/2024 11:16 AM [facility] Neutrophil % 46.1 % 01/03/2024 11:16 AM [facility] Neutrophil Absolute (ANC) - Automated 2.54 1.70 - 6.10 x10(3)/mc L 01/03/2024 11:16 AM [facility] Lymph % 44.3 % 01/03/2024 11:16 AM [facility] Lymph Absolute 2.44 0.90 - 3.20 x10(3)/mc L 01/03/2024 11:16 AM [facility] Monocyte % 7.8 % 01/03/2024 11:16 AM [facility] Monocyte Absolute 0.43 0.30 - 0.90 x10(3)/mc L 01/03/2024 11:16 AM [facility] Eos % 0.9 % 01/03/2024 11:16 AM [facility] Eos Absolute 0.05 0.00 - 0.40 x10(3)/mc L 01/03/2024 11:16 AM [facility] Basophil % 0.5 % 01/03/2024 11:16 AM EDT [facility] Baso Absolute <0.04 0.00 - 0.10 x10(3)/mc L 01/03/2024 11:16 AM EDT [facility] Immature Gran % 0.4 % 11:16 AM EDT [facility] Immature Gran Absolute <0.04 0.00 - 0.04 x10(3)/mc L 01/03/2024 11:16 AM EDT [facility] Blood VENOUS BLOOD SPECIMEN / Unknown Venipuncture / Unknown 01/03/2024 10:43 AM EDT 01/03/2024 10:45 AM EDT Nenita Grimes TOP TRIMMER HEMATOLOG Y ORDERABLES Performing Organization Address City/[facility]/ZIP Co de Phone Number [facility] [place] [address] * Vitamin D, 25-Hydroxy (01/03/2024 10:43 AM EDT) Vitamin D Total 25 OH 44 21 - 100 ng/ml 01/03/2024 11:39 AM EDT [facility] Vitamin D Total 25 OH Interp Sufficient 01/03/2024 11:39 AM EDT [facility] Blood VENOUS BLOOD SPECIMEN / Unknown Venipuncture / Unknown 01/03/2024 10:43 AM EDT 01/03/2024 10:45 AM EDT Nenita Grimes APRN CHEMISTRY ORDERABLES [facility] [place] [address] * U Albumin/Cre Ratio (01/03/2024 10:43 AM EDT) Albumin, Urine <3.0 mg/L 01/03/2024 11:26 AM EDT [facility] Creatinine, Urine 119 mg/dL 01/03/2024 11:26 AM EDT [facility] Albumin / Creatinine Ratio, Urine 01/03/2024 11:26 AM EDT [facility] Comment:Not Calculated. Urine Non Blood Collection / Unknown 01/03/2024 10:43 AM EDT 01/03/2024 10:45 AM EDT Nenita Grimes APRN URINE ORD ERABLES Performing Organization Address City/[facility]/ZIP Co de Phone Number [facility] [place] [address] * Uric acid (01/03/2024 10:43 AM EDT) Uric Acid 6.0 2.5 - 6.5 mg/dL 01/03/2024 11:25 AM EDT [facility] Blood VENOUS BLOOD SPECIMEN / Unknown Venipuncture / Unknown 01/03/2024 10:43 AM EDT 01/03/2024 10:45 AM EDT Nenita Grimes APRN CHEMISTRY ORDERABLES Performing Organization Address [facility] Co de Phone Number [facility] [place] [address] * (ABNORMAL) PTH (01/03/2024 10:43 AM EDT) Parathyroid Hormone 76(H) 15 - 65 pg/mL 01/03/2024 11:25 AM EDT [facility] Blood VENOUS BLOOD SPECIMEN / Unknown Venipuncture / Unknown 01/03/2024 10:43 AM EDT 01/03/2024 10:45 AM EDT Nenita Grimes APRN CHEMISTRY ORDERABLES Performing Organization Address City/[facility] Co de Phone Number [facility] [place] [address] * Protein/Creatinine Ratio, urine (01/03/2024 10:43 AM EDT) Protein, Urine 6 0 - 12 mg/dL 01/03/2024 11:26 AM EDT [facility] Creatinine, Urine 119 mg/dL 01/03/2024 11:26 AM EDT [facility] Protein / Creatinine Ratio, Urine 0.1 ratio 01/03/2024 11:26 AM EDT [facility] Urine Non Blood Collection / Unknown 01/03/2024 10:43 AM EDT 01/03/2024 10:45 AM EDT Nenita Grimes APRN URINE ORD ERABLES [facility] [place] [address] * Phosphorus (01/03/2024 10:43 AM EDT) Phosphorus 3.4 2.5 - 4.5 mg/dL 01/03/2024 11:25 AM EDT [facility] Blood VENOUS BLOOD SPECIMEN / Unknown Venipuncture / Unknown 01/03/2024 10:43 AM EDT 01/03/2024 10:45 AM EDT Nenita Grimes APRN CHEMISTRY ORDERABLES Performing Organization Address City/[facility]/ZIP Co de Phone Number [facility] [place] [address] documented in this encounter Visit Diagnoses Diagnosis Stage 3a chronic kidney disease Stage 3 chronic kidney disease, unspecified whether stage 3a or 3b CKD documented in this encounter Care Teams Personnel Generalist Manager Relationship Specialty Start Date End Date Yumiko Tavarez MD [address] [place] [address] PCP - General Family Medicine 07/07/16 documented as of this encounter
--- OUTSIDE RECORDS SUMMARY | 2024-01-28 12:53 | XMS_ITS | Encounter Summary ---
Author Organization [facility] Address [address] [place] [address] Care Team Providers Care Town Planner Name Role Phone Yumiko Tavarez MD Primary Care Provider [phone] Encounter Details Date Type Department Care Team [...] [facility] Neurology - [place] [address] [place] [address] Alta Walter MD [address] [place] [address] [address] [place] [address] documented as of this encounter Visit Diagnoses Not on filedocumented in this encounter Care Teams Town Planner Relationship Specialty Start Date End Date Yumiko Tavarez MD [address] [place] [id number] PCP - General 12/29/19 documented as of this encounter
--- OUTSIDE RECORDS SUMMARY | 2024-01-28 12:53 | XMS_ITS | Encounter Summary ---
[place] [address] Care Team Providers Care Lsat Instructor Name Role Phone Yumiko Tavarez MD Primary Care Provider [phone] Reason for Referral * Consultation (Routine) - Authorized Specialty Diagnoses / Procedures Referred By Contac t Referred To Contact Urology Diagnoses Retention of urine, unspecified Yumiko Tavarez MD [address] [place] [address] [facility] [place] [facility] [place] [address] Referral ID Status Reason Start Date Expiration Date Visits Requested Visits Authorized [id number] Authorized Consult, Test & Treat PCP Updated and/or Approved 12/25/2024 6 6 Encounter Details Date Type Department Care Team (Latest Contact Info) Description 01/09/2024 Transcribe Orders eDH Incoming Referrals [phone] Yumiko Tavarez MD [address] [place] [address] Retention of urine, unspecified Social [...] 1:00 PM EST [place] [address] Alta Caban APRN [facility] [address] Scheduled Referrals Name Type Priority Associated Diagnoses Orde r Schedule Referral to Urology Outpatient Referral Routine Retention of urine, unspecified Ordered: 01/09/2024 documented as of this encounter Visit Diagnoses Diagnosis Retention of urine, unspecified documented in this encounter Care Teams Lsat Instructor Relationship Specialty Start Date End Date Yumiko Tavarez MD [address] [place] [address] PCP - General Family Medicine 07/07/16 documented as of this encounter
--- OUTSIDE RECORDS SUMMARY | 2024-01-28 12:53 | XMS_ITS | Encounter Summary ---
Author Organization [facility] Address [address] [place] [address] Care Team Providers Care Chemistry Technical Officer Name Role Phone Unknown, Provider Primary Care Provider Unava ilable Encounter Details Date Type Department Care Team (Late st Contact Info) Description 03/08/2016 Results Only [facility]- [facility] [phone] Salvatore Rosario MD [address] [place] [address] [address] [place], [place] [id number] Social History Tobacco Use Types Packs/Day Years [...] [facility] Neurology - [place] [address] [place] [phone] Alta Walter MD [address] [place] [address], Level [address] [place] [phone] documented as of this encounter Procedures Procedure [...] 1.5 cm in greatest dimension. ? Two c s s representative sections and the inked en face cystic duct margin are submitted in 1. Dr. Corona 03/09/2016 6:00 PM End of Report [facility] 03/08/2016 20:4 5 EST 03/08/2016 20:45 EST us Salvatore Rosario MD PATHOLOGY ORDERABLES Fin al Result Performing Organization Address City/State/[facility] Co de Phone Number [facility] [address] [place] [address] documented in this encounter Visit Diagnoses Not on filedocumented in this encounter Care Teams Chemistry Technical Officer Relationship Specialty Start Date End Date Unknown, Provider, PCP - General 08/05/08 12/28/19 documented as of this encounter
--- OUTSIDE RECORDS SUMMARY | 2024-01-28 12:53 | XMS_ITS | Encounter Summary ---
Author [facility] [place] [address] Care Team Providers Care Typing Element Machine Operator Name Role Phone Yuimko Tavarez MD Primary Care Provider Encounter Details Date Type Department Care Team (Late st Contact Info) Description 01/10/2024 Telephone [place] [address] Sue Argueta RN Social History Tobacco Use [...] 01/10/2024 3:51 PM ESTSummary: urinary symptoms-referral to [facility] urology Ms. Mcintyre called into the nephrology clinic stating that she's had symptoms for awhile now. Retention, unable to urinate, pressure/frequency. PCP was to put in a urology referral. [facility] has not received any referral. RN called [...] 1:00 PM [place] [address] Alta Caban APRN [facility] [place] [address] documented as of this encounter Visit Diagnoses Not on filedocumented in this encounter Care Teams Typing Element Machine Operator Relationship Specialty Start Date End Date Yumiko Tavarez MD [address] [place] [address] PCP - General Family Medicine 07/07/16 documented as of this encounter
--- OUTSIDE RECORDS SUMMARY | 2024-01-28 12:54 | XMS_ITS | Encounter Summary ---
Author Organization [facility] [place] [address] Care Team Providers Care Corporate Sales Manager Name Role Phone Yumiko Tavarez MD Primary Care Provider [phone] Reason for Visit * Reason Onset Date Comments Prior Authorization 01/22/2019 XENAZINE 12. 5 MG #60 APPROVED 01/29/19-05/01/19 Encounter Details Date Type Department Care Team (Late st Contact Info) Description 01/22/2019 Telephone [place] [address] Razia Mims MD [facility] [place] [address] Prior Authorization (XENAZINE 12.5 MG #60 APPROVED [...] included. FORM FILLED OUT AND FAXED TO [facility]. [phone] ~abnormal involuntary movements. When I initially saw [...] Red - 01/22/2019 4:56 PM EST [facility] Call Caller: Miguelina If not Pt / Relation to pt: Call back number: [phone] Extension for call back number if appropriate: Medication requiring PA: Tetrabenazine [facility] Benefits/Coverage Company: [employer] [facility] Benefits/Coverage ID #: [id number] Pharmacy Benefits/Coverage Company Pharmacy used by patient: [facility] location: [facility] BIN#: PCN# : Disposition of Call: documented in this encounter Plan of Treatment Upcoming Encounters Date Type Department Care Team (Late st Contact Info) Description 02/04/2024 1:00 PM EST Office [place] [address] Alta Caban APRN [facility] [place] [address] documented as of this encounter Visit Diagnoses Not on filedocumented in this encounter Care Teams Corporate Sales Manager Relationship Specialty Start Date End Date Yumiko Tavarez MD [address] [place] [address] PCP - General Family Medicine 07/07/16 documented as of this encounter
--- OUTSIDE RECORDS SUMMARY | 2024-01-28 12:54 | XMS_ITS | Encounter Summary ---
[place] [address] Care Team Providers Care Linux Administrator Name Role Phone Yumiko Tavarez MD Primary Care Provider [phone] Encounter Details Date Type Department Care Team (Late st Contact Info) Description 08/06/2017 4:00 PM EDT [place] [address] Razia Mims MD [facility] [place] [address] Primary Parkinsonism Social History Tobacco Use Types [...] Mims MD - 08/06/2017 4:[address] 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 Stretching makes her feel better. 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 [...] or other genetic testing Razia Mims MD [facility] Neurology-Movement Disorders documented in this encounter Plan of Treatment Upcoming Encounters Date Type Department Care Team (Late st Contact Info) Description 02/04/2024 1:00 PM EST [place] [address] Alta Caban APRN [facility] [place] [address] documented as of this encounter Visit Diagnoses Diagnosis Primary parkinsonism Paralysis agitans documented in this encounter Care Teams Linux Administrator Relationship Specialty Start Date End Date Yumiko Tavarez MD [address] [place] [address] PCP - General Family Medicine 07/07/16 documented as of this encounter
--- OUTSIDE RECORDS SUMMARY | 2024-01-28 12:54 | XMS_ITS | Encounter Summary ---
[place] [address] Care Team Providers Care Charge Auditor Name Role Phone Yumiko Tavarez MD Primary Care Provider [phone] Encounter Details Date Type Department Care Team (Late st Contact Info) Description 03/11/2018 2:30 PM EST [place] [address] Razia Mims MD [facility] [place] [address] Primary Parkinsonism; Weight gain Social History Tobacco [...] Mims MD - 03/11/2018 2:30 PM EST [facility] Movement Disorders Follow Up Patient Evaluation Date of service 03/11/2018 Referring provider Yumiko Tavarez MD [address] [place] [address] Cc: tremor History of present illness Miguelina [...] , Rfl: ??? naloxone (NARCAN) 4 mg/actuation [place], Non-Aerosol, by Nasal route as needed., Disp: [...] tablet, Rfl: 11 Social History: Lives in [facility], she is retired from [employer]. Remote history of cocaine use Review of [...] - TSH, T4 today Razia Mims MD [facility] Neurology-Movement Disorders documented in this encounter Miscellaneous Notes * Addendum Note - Deysi Belcher - 03/11/2018 2:30 PM ESTAddended by: DEYSI BELCHER on: 03/11/2018 03:26 PM Modules accepted: Orders documented in this encounter Plan of Treatment Upcoming Encounters Date Type Department Care Team (Late st Contact Info) Description 02/04/2024 1:00 PM EST [place] [address] Alta Caban APRN [facility] [place] [address] documented as of this encounter Procedures Procedure Name Priority Date/Time Associated Diagnosis Comments TSH Routine 03/11/2018 3:33 PM EST Weight gain T4, FREE Routine 03/11/2018 3:33 PM EST Weight gain documented in this encounter Results * (ABNORMAL) T4, free (03/11/2018 3:33 PM EST) Free T4 0.92(L) 0.93 - 1.70 ng/dL [facility] Blood specimen (specimen) 03/11/2018 3:33 PM EST 03/11/2018 3:42 PM EST Narrative Resulting Agency Comment Spec In Lab Razia Mims MD CHEMISTRY ORDERABL ES [facility] [place] [address] * TSH (03/11/2018 3:33 PM EST) Thyroid Stimulating Hormone 0.81 0.27 - 4.20 mlU/ML [facility] Blood specimen (specimen) 03/11/2018 3:33 PM EST 03/11/2018 3:42 PM EST Narrative Resulting Agency Comment Spec In Lab Razia Mims MD CHEMISTRY ORDERABL ES [facility] [place] [address] documented in this encounter Visit Diagnoses Diagnosis Primary parkinsonism Paralysis agitans Weight gain Abnormal weight gain documented in this encounter Care Teams Charge Auditor Relationship Specialty Start Date End Date Yumiko Tavarez MD [address] [place] [address] PCP - General Family Medicine 07/07/16 documented as of this encounter
--- OUTSIDE RECORDS SUMMARY | 2024-01-28 12:54 | XMS_ITS | Encounter Summary ---
Author Organization [facility] Address [facility] [place] [address] Care Team Providers Care Customs And Border Protection Officer Name Role Phone Yumiko Tavarez MD Primary Care Provider [phone] Reason for Referral * Speech Therapy (Routine) - Specialty Diagnoses / Procedures Referred By Contpayam t Referred To Contact Neurology Diagnoses Primary parkinsonism Razia Mims MD [facility] [place] [address] Referral ID Status Reason Start Date Expiration Date V isits Requested Visits Authorized [id number] Evaluate and Treat 01/20/2020 07/18/2020 12 12 Encounter Details Date Type Department Care Team (Late st Contact Info) Description 01/20/2020 10:00 AM EST Office [place] [address] Razia Mims MD [facility] [place] [address] Kartik Delgadillo APRN [facility] [place] [address] Primary Parkinsonism; Chorea Social History Tobacco Use [...] Mims MD - 01/20/2020 10:00 AM EST [facility] Movement Disorders Follow Up Patient Evaluation Date of service 01/20/2020 Referring provider Yumiko Tavarez MD [address] [place] [address] Cc: tremor History of present illness Miguelina [...] , Rfl: ??? naloxone (NARCAN) 4 mg/actuation [place], Non-Aerosol, 1 spray by Nasal route as [...] tablet, Rfl: 11 Social History: Lives in [place], she is retired from [employer]. Remote history of cocaine use (2 times [...] consider a second opinion with Destini Espinozaman Rzaia Mims MD [facility] Neurology-Movement Disorders documented in this encounter Plan of Treatment Upcoming Encounters Date Type Department Care Team (Late st Contact Info) Description 02/04/2024 1:00 PM EST Office [place] [address] Alta Caban APRN [facility] [place] [address] Scheduled Referrals Name Type Priority Associated Diagnoses Orde r Schedule Referral to Speech Therapy Outpatient Referral Routine Primary Parkinsonism Ordered: 01/20/2020 documented as of this encounter Visit Diagnoses Diagnosis Primary parkinsonism Paralysis agitans Chorea Other choreas documented in this encounter Care Teams Customs And Border Protection Officer Relationship Specialty Start Date End Date Yumiko Tavarez MD [address] [place] [address] PCP - General Family Medicine 07/07/16 documented as of this encounter
--- OUTSIDE RECORDS SUMMARY | 2024-01-28 12:54 | XMS_ITS | Encounter Summary ---
Author Organization [facility] [place] [address] Care Team Providers Care Vegetable Preparer Name Role Phone Yumiko Tavarez MD Primary Care Provider [phone] Encounter Details Date Type Department Care Team (Late st Contact Info) Description 04/01/2019 [place] [id number] Razia Mims MD [facility] [place] [address] Social History Tobacco Use Types Packs/Day Years [...] 1:00 PM EST [place] [address] Alta Caban APRN [facility] [place] [address] documented as of this encounter Visit Diagnoses Not on filedocumented in this encounter Care Teams Vegetable Preparer Relationship Specialty Start Date End Date Yumiko Tavarez MD [address] [place] [address] PCP - General Family Medicine 07/07/16 documented as of this encounter
--- OUTSIDE RECORDS SUMMARY | 2024-01-28 12:54 | XMS_ITS | Encounter Summary ---
Author Organization [facility] [place] [address] Care Team Providers Care Evp Global Product Leadership Name Role Phone Yumiko Tavarez MD Primary Care Provider [phone] Encounter Details Date Type Department Care Team (Late st Contact Info) Description 08/12/2018 [place] [address] Razia Mims MD [facility] [place] [address] Social History Tobacco Use Types Packs/Day Years [...] 1:00 PM [place] [address] Alta Caban [facility] [place] [address] documented as of this encounter Visit Diagnoses Not on filedocumented in this encounter Care Teams Evp Global Product Leadership Relationship Specialty Start Date End Date Yumiko Tavarez MD [address] [place] [address] PCP - General Family Medicine 07/07/16 documented as of this encounter
--- OUTSIDE RECORDS SUMMARY | 2024-01-28 12:54 | XMS_ITS | Encounter Summary ---
Author Organization [facility] [place] [address] Care Team Providers Care Erp Developer Name Role Phone Yumiko Tavarez MD Primary Care Provider [phone] Reason for Referral * Diagnostic Test (Routine) - Closed Specialty Diagnoses / Procedures Referred By Warren dennis Referred To Contact Diagnoses Stage 3a chronic kidney disease Procedures Duplex Study Renal Arteries, Bilat Herbie Grimes APRN [facility] [place] [address] [facility] Vascular [address] [place] [address] Referral ID Status Reason Start Date Expiration Date V isits Requested Visits Authorized [id number] Closed Specialty Service Requested 01/12/2023 01/12/2024 1 1 Encounter Details Date Type Department Care Team (Latest Contact Info) Description 01/02/2023 2:30 PM EDT Office Visit [place] [address] Herbie Grimes APRN [facility] [place] [address] Stage 3a chronic kidney disease; [...] from the original note were not included. [facility] NEPHROLOGY/HYPERTENSION CLINIC FOLLOW-UP NOTE [id number] ID: 57 y.o.year-old female for follow up [...] in the evening naloxone (Narcan) 4 mg/actuation [place], Non-Aerosol 1 spray by Nasal route as [...] She mentioned being followed by Urrology at [facility] for this complaint. She further dneies [...] Negative mcL Appearance UA Clear Clear Spec [place] UA 1.016 1.005 - 1.030 Color UA [...] Ultrasound dated 01/02 PATIENT INFO: ID #: [id number] : [birth year] (57 yrs)(F) Name: CYDNEY Fuentes Visit Date: 01/02/2023 02:02 pm CHAMBERLAIN PERFORMED BY: Attending: Rosalinda Gonzalez MD Performed By: Jany Avila RDMS Referred By: WILBERT CHAVIS Location: [place] SERVICE(S) PROVIDED: URETRO - Retroperitoneal Complete - [id number] INDICATIONS: 57 y.o. female CKD3, r/o anatomic [...] stream. Endorses being followed by Urology at [facility] and being seen recently. We do not have records of this visit. Will attempt to reach out to the [facility] for the records Renal [...] and coordination of care. Herbie Grimes APRN [facility] [address] [facility] [address] 2nd floor, Vision Therapist [address] [place] [address] CC: Yumiko Tavarez MD @[email or web address]@ documented in this encounter Miscellaneous Notes * Addendum Note - Herbie Grimes APRN - 01/02/2023 2:30 PM EDT Addended by: HERBIE GRIMES on: 01/12/2023 02:28 PM Modules accepted: Orders documented in this encounter Plan of Treatment Upcoming Encounters Date Type Department Care Team (Late st Contact Info) Description 02/04/2024 1:00 PM EST [place] [address] Alta Caban APRN [facility] [place] [address] documented as of this encounter Results * Protein/Creatinine Ratio, urine (01/02/2023 1:26 PM EDT) Creatinine, Urine 152 mg/dL [facility] Protein, Urine 7 0 - 12 mg/dL [facility] Protein / Creatinine Ratio, Urine <0.1 ratio [facility] Urine 01/02/2023 1:26 PM EDT 01/02/2023 1:38 PM EDT Narrative Resulting Agency Comment Spec In Lab Herbie Grimes APRN URINE ORD ERABLES [facility] [place] [address] * U Albumin/Cre Ratio (01/02/2023 1:26 PM EDT) Albumin / Creatinin Ratio, Urine 3 0 - 29 mcg/mg Cr [facility] Comment: Reference Ranges: <30 [...] 2, 357? 362 Albumin, Urine 3.9 mg/L [facility] Creatinine, Urine 152 mg/dL [facility] Urine 01/02/2023 1:26 PM EDT 01/02/2023 1:38 PM EDT Narrative Resulting Agency Comment Spec In Lab Herbie Leach Cornelio ROLLER SKATES ASSEMBLER URINE ORD ERABLES [facility] [address] [facility] [place] [address] * (ABNORMAL) _Urinalysis with microscopic (01/02/2023 1:26 PM EDT) Glucose, Urine Dipstick Negative Negative mg/dL [facility] Protein, Urine Dipstick Negative Negative mg/dL [facility] Bilirubin, Urine Dipstick Negative Negative mg/dL [facility] Comment: Clinical correlation required for positive Urine Bilirubin results as false positive may occur with some drugs and drug related products. If a false positive is suspected a serum total bilirubin should be considered if clinically indicated. Urobilinogen, Urine Dipstick Normal Normal mg/dL [facility] pH, Urn (dipstick) 5.5 5.0 - 8.0 [facility] Blood, Urine Dipstick Moderate(A) Negative mg/dL [facility] Ketone, Urine Dipstick Negative Negative mg/dL [facility] Nitrite, Urine Dipstick Negative Negative [facility] Leukocytes, Urine Dipstick Negative Negative [facility] Appearance, Urine Dipstick Clear Clear [facility] Specific [place] Urine Automated 1.016 1.005 - 1.030 [facility] Color, Urine Dipstick Yellow Yellow [facility] RBC, Urine 3 0 - 4 /HPF [facility] WBC, Urine 1 0 - 5 /HPF [facility] Bacteria, Urine Occasional(A ) None /HPF [facility] Squamous Epithelial Cells Raw Data, Urine 4 <=4 /HPF [facility] Hyaline Casts, Urine 5(H) 0 - 2 /LPF [facility] Urine 01/02/2023 1:26 PM EDT 01/02/2023 1:38 PM EDT Narrative Resulting Agency Comment Spec In Lab Herbie Leach Cornelio LERNER URINE ORD ERABLES Performing Organization Address City/[facility]/ZIP Co de Phone Number [facility] [place] [address] * Phosphorus (01/02/2023 1:18 PM EDT) Phosphorus 3.8 2.5 - 4.5 mg/dL [facility] Blood 01/02/2023 1:18 PM EDT 01/02/2023 1:26 PM EDT Narrative Resulting Agency Comment Spec In Lab Herbie Leach Cornelio LERNER CHEMISTRY ORDERABLES Performing Organization Address City/[facility]/ZIP Co de Phone Number [facility] [place] [address] * (ABNORMAL) PTH (01/02/2023 1:18 PM EDT) Parathyroid Hormone 118(H) 15 - 65 pg/mL [facility] Blood 01/02/2023 1:18 PM EDT 01/02/2023 1:26 PM EDT Narrative Resulting Agency Comment Spec In Lab Herbie Leach Cornelio LERNER CHEMISTRY ORDERABLES Performing Organization Address [facility]/ZIP Co de Phone Number [facility] [place] [address] * Vitamin D, 25-Hydroxy (01/02/2023 1:18 PM EDT) Vitamin D Total 25 OH 56 21 - 100 ng/mL [facility] Vit D Interp Sufficient [facility] Blood 01/02/2023 1:18 PM EDT 01/02/2023 1:26 PM EDT Narrative Resulting Agency Comment Spec In Lab Herbiejamaica Grimes APRN CHEMISTRY ORDERABLES Performing Organization Address [facility] Co de Phone Number [facility] [place] [address] * (ABNORMAL) Basic Metabolic Panel (non-fasting) (01/02/2023 1:18 PM EDT) Glucose 95 65 - 199 mg/dL [facility] Comment:Diabetes: >=200 mg/d L plus symptoms Blood Urea Nitrogen 13 8 - 18 mg/dL [facility] Creatinine 1.27(H) 0.70 - 1.20 mg/dL [facility] Sodium 141 135 - 145 mmol/L [facility] Potassium 4.4 3.5 - 5.0 mmol/L [facility] Comment: Please note: ??Patients with WBC >100,000 may have falsely elevated Potassium levels. ??For accurate Potassium quantification in these patients send serum separator tube (gold top) for subsequent determinations. ??Contact the Clinical Chemistry Laboratory if there are any questions. Chloride 104 98 - 107 mmol/L [facility] Carbon Dioxide 27 22 - 31 mmol/L [facility] Anion Gap 10 5 - 15 mmol/L [facility] Calcium 9.2 8.5 - 10.5 mg/dL [facility] Est Glomerular Filtration Rate 49(L) >=60 mL/min/1. 73 m?? [facility] Comment: This patient's estimated [...] Grimes APRN CHEMISTRY ORDERABLES Performing Organization Address [facility]/ZIP Co de Phone Number [facility] [place] [address] * Albumin Level (01/02/2023 1:18 PM EDT) Albumin 4.0 3.2 - 5.2 g/dL [facility] Blood 01/02/2023 1:18 PM EDT 01/02/2023 1:26 PM EDT Narrative Resulting Agency Comment Spec In Lab Herbie Grimes ROLLER SKATES ASSEMBLER CHEMISTRY ORDERABLES [facility] [place] [address] documented in this encounter Visit Diagnoses Diagnosis Stage 3a chronic kidney disease PTSD (post-traumatic stress disorder) Posttraumatic stress disorder Hyperparathyroidism Hyperparathyroidism, unspecified Anxiety Anxiety state, unspecified documented in this encounter Care Teams Erp Developer Relationship Specialty Start Date End Date Yumiko Tavarez MD [address] [place] [address] PCP - General Family Medicine 07/07/16 documented as of this encounter
--- OUTSIDE RECORDS SUMMARY | 2024-01-28 12:54 | XMS_ITS | Encounter Summary ---
Author Organization [place] [address] Care Team Providers Care Speech Language Pathologist Prn Name Role Phone Yumiko Tavarez MD Primary Care Provider [phone] Encounter Details Date Type Department Care Team (Latest Contact Info) Description 01/02/2023 1:30 PM EDT - 01/02/2023 11:59 PM EDT Hospital En[place] [address] [place] [address] Stage 3a chronic kidney disease Discharge Disposition: [...] in the evening naloxone (Narcan) 4 mg/actuation [place], Non-Aerosol 1 spray by Nasal route as [...] 1:00 PM EST Office [place] [address] Alta Caban DRY PRESS OPERATOR HELPER [facility] [place] [address] documented as of this encounter Procedures Procedure [...] Electronically signed by: Rosalinda Gonzalez MD, [facility] ([phone]), at 01/02/2023 3:57 PM Thank you for letting us participate in the care of this patient. If you are a health care provider and have any questions regarding this report, please contact the number above. For patients who have questions, please contact the health before and after school daycare worker that requested your imaging first. ?Rosalinda Gonzalez, Staff Physician Electronically Signed Final Report ?? 01/02/2023 04:03 pm Narrative 01/02/2023 4:04 PM EDT Renal ? (Signed Final 01/02/2023 04:03 pm) PATIENT INFO: ID #: ? [id number] ?: ??[birth year] (57 yrs)(F) Name: ? CYDNEY S ? Visit Date: 01/02/2023 02:02 pm ? LARRY PERFORMED BY: Attending: ?Lisa PETTY, Rosalinda Beth Performed By: ? Jany Avila RDMS Referred By: ?LIGIA LOPEZ Location: ? [place] SERVICE(S) PROVIDED: URETRO - Retroperitoneal Complete - [id number] ? [id number] INDICATIONS: 57 y.o. female CKD3, r/o anatomic [...] 01/02/2023 04:03 pm) PATIENT INFO: ID #: [id number] : [birth year] (57 yrs)(F) Name: CYDNEY Fuentes Visit Date: 01/02/2023 02:02 pm LARRY PERFORMED BY: Attending: Rosalinda Gonzalez MD Performed By: Jany Avila RDMS Referred By: LIGIA LOPEZ Location: [place] SERVICE(S) PROVIDED: URETRO - Retroperitoneal Complete - [id number] INDICATIONS: 57 y.o. female CKD3, r/o anatomic [...] Electronically signed by: Rosalinda Gonzalez MD, Radiology [place] ([phone]), at 01/02/2023 3:57 PM Thank you for letting us participate in the care of this patient. If you are a health care provider and have any questions regarding this report, please contact the number above. For patients who have questions, please contact the health before and after school daycare worker that requested your imaging first. Rosalinda Gonzalez, Staff Physician Electronically Signed Final Report 01/02/2023 04:03 pm Ligia Lopez APRN IMG US GEN ORDERABLE S documented in this encounter Visit Diagnoses Diagnosis Stage 3a chronic kidney disease documented in this encounter Care Teams Speech Language Pathologist Prn Relationship Specialty Start Date End Date Yumiko Tavarez MD [address] [place] [address] PCP - General Family Medicine 07/07/16 documented as of this encounter
--- OUTSIDE RECORDS SUMMARY | 2024-01-28 12:54 | XMS_ITS | Encounter Summary ---
Author Organization [facility] [place] [address] Care Team Providers Care Rehabilitation Case Coordinator Name Role Phone Yumiko Tavarez MD Primary Care Provider [phone] Encounter Details Date Type Department Care Team (Late st Contact Info) Description 01/11/2017 [place] [address] Razia Mims MD [facility] [place] [address] Social History Tobacco Use Types Packs/Day Years [...] to February. Razia Mims MD [facility] Neurology-Movement Disorders documented in this encounter Plan of Treatment Upcoming Encounters Date Type Department Care Team (Late st Contact Info) Description 02/04/2024 1:00 PM EST [place] [address] Alta Caban APRN [facility] [place] [address] documented as of this encounter Visit Diagnoses Not on filedocumented in this encounter Care Teams Rehabilitation Case Coordinator Relationship Specialty Start Date End Date Yumiko Tavarez MD [address] [place] [address] PCP - General Family Medicine 07/07/16 documented as of this encounter
--- OUTSIDE RECORDS SUMMARY | 2024-01-28 12:54 | XMS_ITS | Encounter Summary ---
Author Organization [facility] Address [facility] [place] [address] Care Team Providers Care Retail Aide Name Role Phone Yumiko Tavarez MD Primary Care Provider [phone] Reason for Visit * Reason Onset Date Comments Other 11/08/2018 Encounter Details Date Type Department Care Team (Late st Contact Info) Description 11/08/2018 Tele[place] [address] Razia Mims MD [facility] [place] [address] Other Social History Tobacco Use Types Packs/Day [...] can order it but she lives in [place], [place] so I am wondering if she has a local hospital where she would want us to send the order. Miguelina says she can use [facility]. Patient also says that she [...] list. Prepped EKG order to go to [facility], will forward to physician. * Telephone [...] Solo - 11/08/2018 3:19 PM EDT Clinical Bark Peeler Message Caller: Miguelina Call back Number: [phone] Reason for call: patient calling to give [...] 1:00 PM EST Office [place] [address] Alta Caban APRN [facility] [place] [address] documented as of this encounter Visit Diagnoses Diagnosis Primary parkinsonism Paralysis agitans Tremors of nervous system Abnormal involuntary movements Screening procedure Screening for unspecified condition documented in this encounter Care Teams Retail Aide Relationship Specialty Start Date End Date Yumiko Tavarez MD [address] [place] [address] PCP - General Family Medicine 07/07/16 documented as of this encounter
--- OUTSIDE RECORDS SUMMARY | 2024-01-28 12:54 | XMS_ITS | Encounter Summary ---
Author Organization [facility] [place] [address] Care Team Providers Care Trade Specialist Name Role Phone Yumiko Tavarez MD Primary Care Provider [phone] Reason for Visit * Consultation (Routine) - Closed Specialty Diagnoses / Procedures Referred By Warren dennis Referred To Contact Nephrology Diagnoses Stage 3 chronic kidney disease, unspecified whether stage 3a or 3b CKD Yumiko Tavarez MD [address] [place] [address] [facility] Nephrology [address] [place] [phone] Referral ID Status Reason Start Date Expiration Date V isits Requested Visits Authorized [id number] Closed Consult, Test & Treat PCP Updated and/or Approved 03/13/2022 09/09/2022 1 1 Encounter Details Date Type Department Care Team (Late st Contact Info) Description 08/14/2022 1:00 PM EDT Office Visit Nephrology [place] [phone] Neeraj Vasquez MD [facility] [place] [address] Stage 3a chronic kidney disease; [...] Vasquez MD - 08/14/2022 1:00 PM EDT [facility] NEPHROLOGY AND [facility]YPERTENSION CLINIC 08/14/22 PRIMARY [...] in the evening naloxone (Narcan) 4 mg/actuation [place], Non-Aerosol 1 spray by Nasal route as [...] -70 pg/ml Calcium :.Phosphorus within normal limit [id number] D adequate : PTH : 73 * [...] lab including PTH Renal sonogram Neeraj Vasquez. [facility] [place] [address] * Efren Suh MD - 08/14/2022 1:00 [...] 1:00 PM EST Office [place] [address] Alta Caban APRN [facility] [place] [address] documented as of this encounter Results * (ABNORMAL) Urinalysis without microscopic (08/14/2022 12:24 PM EDT) Glucose, Urine Dipstick Negative Negative mg/dL [facility] Protein, Urine Dipstick Negative Negative mg/dL [facility] Bilirubin, Urine Dipstick Negative Negative mg/dL [facility] Comment: Clinical correlation required for positive Urine Bilirubin results as false positive may occur with some drugs and drug related products. If a false positive is suspected a serum total bilirubin should be considered if clinically indicated. Urobilinogen, Urine Dipstick Normal Normal mg/dL [facility] pH, Urn (dipstick) 6.0 5.0 - 8.0 [facility] Blood, Urine Dipstick Small(A) Negative mg/dL [facility] Ketone, Urine Dipstick Negative Negative mg/dL [facility] Nitrite, Urine Dipstick Negative Negative [facility] Leukocytes, Urine Dipstick Negative Negative mcL [facility] Appearance, Urine Dipstick Clear Clear [facility] Specific [place] Urine Automated 1.010 1.005 - 1.030 [facility] Color, Urine Dipstick Yellow Yellow [facility] Urine 08/14/2022 12:2 4 PM EDT 08/14/2022 12:33 PM EDT Narrative Resulting Agency Comment Spec In Lab Efren Suh MD URINE ORDERABLES Performing Organization Address City/[facility]/ZIP Co de Phone Number [facility] [place] [address] * Vitamin D, 25-Hydroxy (08/14/2022 11:52 AM EDT) Vitamin D Total 25 OH 40 21 - 100 ng/mL [facility] Vit D Interp Sufficient [facility] Blood 08/14/2022 11:5 2 AM EDT 08/14/2022 11:59 AM EDT Narrative Resulting Agency Comment Spec In Lab Efren Shu MD CHEMISTRY ORDERABLES [facility] [place] [address] * Phosphorus (08/14/2022 11:52 AM EDT) Phosphorus 4.2 2.5 - 4.5 mg/dL [facility] Blood 08/14/2022 11:5 2 AM EDT 08/14/2022 11:59 AM EDT Narrative Resulting Agency Comment Spec In Lab Efren Suh MD CHEMISTRY ORDERABLES [facility] [place] [address] * Calcium (08/14/2022 11:52 AM EDT) Calcium 9.6 8.5 - 10.5 mg/dL [facility] Blood 08/14/2022 11:5 2 AM EDT 08/14/2022 11:59 AM EDT Narrative Resulting Agency Comment Spec In Lab Efren Suh MD CHEMISTRY ORDERABLES [facility] [place] [address] * (ABNORMAL) PTH (08/14/2022 11:52 AM EDT) Parathyroid Hormone 76(H) 15 - 65 pg/mL [facility] Blood 08/14/2022 11:5 2 AM EDT 08/14/2022 11:59 AM EDT Narrative Resulting Agency Comment Spec In Lab Efren Suh MD CHEMISTRY ORDERABLES [facility] [place] [address] * (ABNORMAL) Basic Metabolic Panel (non-fasting) (08/14/2022 11:52 AM EDT) Glucose 82 65 - 199 mg/dL [facility] Comment:Diabetes: >=200 mg/d L plus symptoms Blood Urea Nitrogen 13 8 - 18 mg/dL [facility] Creatinine 1.14 0.70 - 1.20 mg/dL [facility] Sodium 141 135 - 145 mmol/L [facility] Potassium 4.5 3.5 - 5.0 mmol/L [facility] Comment: Please note: ??Patients with WBC >100,000 may have falsely elevated Potassium levels. ??For accurate Potassium quantification in these patients send serum separator tube (gold top) for subsequent determinations. ??Contact the Clinical Chemistry Laboratory if there are any questions. Chloride 103 98 - 107 mmol/L [facility] Carbon Dioxide 28 22 - 31 mmol/L [facility] Anion Gap 10 5 - 15 mmol/L [facility] Calcium 9.6 8.5 - 10.5 mg/dL [facility] Est Glomerular Filtration Rate 55(L) >=60 mL/min/1. 73 m?? [facility] Comment: This patient's estimated [...] In Lab Efren Suh MD CHEMISTRY ORDERABLES [facility] [place] [address] documented in this encounter Visit Diagnoses Diagnosis Stage 3a chronic kidney disease Hyperparathyroidism Hyperparathyroidism, unspecified documented in this encounter Care Teams Trade Specialist Relationship Specialty Start Date End Date Yumiko Tavarez MD [address] [place] [address] PCP - General Family Medicine 07/07/16 documented as of this encounter
--- OUTSIDE RECORDS SUMMARY | 2024-01-28 12:54 | XMS_ITS | Encounter Summary ---
[place] [address] Care Team Providers Care Manager Wound Name Role Phone Yumiko Tavarez MD Primary Care Provider [phone] Reason for Referral * Consultation (Routine) - Closed Specialty Diagnoses / Procedures Referred By Contac t Referred To Contact Nephrology Diagnoses Stage 3 chronic kidney disease, unspecified whether stage 3a or 3b CKD Yumiko Tavarez MD [address] [place] [address] [facility] Nephrology [address] [place] [phone] Referral ID Status Reason Start Date Expiration Date V isits Requested Visits Authorized [id number] Closed Consult, Test & Treat PCP Updated and/or Approved 03/13/2022 09/09/2022 1 1 Encounter Details Date Type Department Care Team (Latest Contact Info) Description 03/13/2022 Transcribe Orders [facility] Incoming Referrals [phone] Yumiko Tavarez MD [address] [place], [place] [id number] Stage 3 chronic kidney disease, unspecified whether [...] 1:00 PM EST [place] [address] Alta Caban APRN [facility] [place] [address] Scheduled Referrals Name Type Priority Associated Diagnoses Orde r Schedule Referral to Nephrology Outpatient Referral Routine Stage 3 Chronic Kidney Disease, Unspecified Whether Stage 3a Or 3b Ckd Ordered: 03/13/2022 documented as of this encounter Visit Diagnoses Diagnosis Stage 3 chronic kidney disease, unspecified whether stage 3a or 3b CKD documented in this encounter Care Teams Manager Wound Relationship Specialty Start Date End Date Yumiko Tavarez MD [address] [place] [address] PCP - General Family Medicine 07/07/16 documented as of this encounter
--- OUTSIDE RECORDS SUMMARY | 2024-01-28 12:54 | XMS_ITS | Encounter Summary ---
Author Organization [facility] [place] [address] Care Team Providers Care Cat Swamper Name Role Phone Yumiko Tavarez MD Primary Care Provider [phone] Encounter Details Date Type Department Care Team (Late st Contact Info) Description 03/26/2019 [place] [address] Razia Mims MD [facility] [address] [place] [address] Social History Tobacco Use Types Packs/Day Years [...] 1:00 PM EST [place] [address] Alta Caban APRN [facility] [place] [address] documented as of this encounter Visit Diagnoses Not on filedocumented in this encounter Care Teams Cat Swamper Relationship Specialty Start Date End Date Yumiko Tavarez MD [address] [place] [address] PCP - General Family Medicine 07/07/16 documented as of this encounter
--- OUTSIDE RECORDS SUMMARY | 2024-01-28 12:54 | XMS_ITS | Encounter Summary ---
Author Organization [facility] [address] Care Team Providers Care Used Car Sales Supervisor Name Role Phone Yumiko Tavarez MD Primary Care Provider [phone] Encounter Details Date Type Department Care Team (Latest Contact Info) Description 08/14/2022 11:30 AM EDT Laboratory Appointment Lab [address] [place] [phone] Stage 3 chronic kidney disease, unspecified whether [...] 1:00 PM EST Office [place] [phone] Alta Caban APRN [facility] [place] [address] documented as of this encounter Procedures Procedure [...] without microscopic (08/14/2022 12:24 PM EDT) Pathologist [facility] Glucose, Urine Dipstick Negative Negative mg/dL [facility] Protein, Urine Dipstick Negative Negative mg/dL [facility] Bilirubin, Urine Dipstick Negative Negative mg/dL [facility] Comment: Clinical correlation required for positive Urine Bilirubin results as false positive may occur with some drugs and drug related products. If a false positive is suspected a serum total bilirubin should be considered if clinically indicated. Urobilinogen, Urine Dipstick Normal Normal mg/dL [facility] pH, Urn (dipstick) 6.0 5.0 - 8.0 [facility] Blood, Urine Dipstick Small(A) Negative mg/dL [facility] Ketone, Urine Dipstick Negative Negative mg/dL [facility] Nitrite, Urine Dipstick Negative Negative [facility] Leukocytes, Urine Dipstick Negative Negative [facility] Appearance, Urine Dipstick Clear Clear [facility] Specific [place] Urine Automated 1.010 1.005 - 1.030 [facility] Color, Urine Dipstick Yellow Yellow [facility] Urine 08/14/2022 12:2 4 PM EDT 08/14/2022 12:33 PM EDT Narrative Resulting Agency Comment Spec In Lab Efren Suh MD URINE ORDERABLES [facility] [address] * Differential, Automated (08/14/2022 11:52 AM EDT) Neutrophil % 44.1 % [facility] Neutrophil Absolute 2.42 1.70 - 6.10 x10(3)/[facility] Lymph % 46.7 % [facility] Lymphocytes Abs 2.6 0.9 - 3.2 x10(3)/[facility] Monocyte % 7.7 % [facility] Monocyte Abs 0.4 0.3 - 0.9 x10(3)/[facility] Eos % 0.9 % [facility] Eosinophils Abs 0.0 0.0 - 0.4 x10(3)/[facility] Basophil % 0.4 % [facility] Baso Absolute 0.0 0.0 - 0.1 x10(3)/[facility] Immature Gran % 0.20 % [facility] Comment: Immature granulocytes(IG's)percentage and absolute count will include metamyelocytes, myelocytes, and promyelocytes. Blood smears from CBCs yielding IG's will be scanned manually for concordance. If this scan disagrees with the automated IG or if promyelocytes are noted, a manual differential will be performed. Immature Gran Absolute 0.01 0.00 - 0.04 x10(3)/[facility] Blood 08/14/2022 11:5 2 AM EDT 08/14/2022 11:59 AM EDT Narrative Resulting Agency Comment Spec In Lab Neeraj Vasquez MD HEMATOLOGY NEELIMA PEDRAZA [facility] [place] [address] * (ABNORMAL) Hemogram (08/14/2022 11:52 AM EDT) White Blood Cell 5.5 4.0 - 9.5 x10(3)/mc L [facility] Red Blood Cell 3.82(L) 4.00 - 5.21 x10(6)/mc L [facility] Hemoglobin 12.4 11.7 - 15.5 g/dL [facility] Hematocrit 37.9 35.7 - 45.8 % [facility] Mean Cell Volume 99.2(H) 82.6 - 94.4 fL [facility] Mean Cell Hemoglobin 32.5(H) 27.1 - 32.0 pg [facility] Mean Cell Hemoglobin Concentration 32.7 31.7 - 35.0 g/dL [facility] Platelet 199 145 - 357 x10(3)/mc L [facility] RDW Standard Deviation 44.5 37.0 - 46.0 fL [facility] RDW coefficient of variation 12.3 11.5 - 14.1 % [facility] Mean Platelet Volume 10.9 7.6 - 12.9 fL [facility] NRBC% auto 0.0 % [facility] NRBC Absolute 0.000 0.000 - 0.000 x10(3)/mc L [facility] Blood 08/14/2022 11:5 2 AM EDT 08/14/2022 11:59 AM EDT Narrative Resulting Agency Comment Spec In Lab Neeraj Vasquez MD HEMATOLOGY NEELIMA PEDRAZA Performing Organization Address City/[facility]/ZIP Co de Phone Number [facility] [address] * Vitamin D, 25-Hydroxy (08/14/2022 11:52 AM EDT) Vitamin D Total 25 OH 40 21 - 100 ng/mL [facility] Vit D Interp Sufficient [facility] Blood 08/14/2022 11:5 2 AM EDT 08/14/2022 11:59 AM EDT Narrative Resulting Agency Comment Spec In Lab Efren Suh MD CHEMISTRY ORDERABLES [facility] [place] [address] * (ABNORMAL) Basic Metabolic Panel (non-fasting) (08/14/2022 11:52 AM EDT) Glucose 82 65 - 199 mg/dL [facility] Comment:Diabetes: >=200 mg/d L plus symptoms Blood Urea Nitrogen 13 8 - 18 mg/dL [facility] Creatinine 1.14 0.70 - 1.20 mg/dL [facility] Sodium 141 135 - 145 mmol/L [facility] Potassium 4.5 3.5 - 5.0 mmol/L [facility] Comment: Please note: ??Patients with WBC >100,000 may have falsely elevated Potassium levels. ??For accurate Potassium quantification in these patients send serum separator tube (gold top) for subsequent determinations. ??Contact the Clinical Chemistry Laboratory if there are any questions. Chloride 103 98 - 107 mmol/L [facility] Carbon Dioxide 28 22 - 31 mmol/L [facility] Anion Gap 10 5 - 15 mmol/L [facility] Calcium 9.6 8.5 - 10.5 mg/dL [facility] Est Glomerular Filtration Rate 55(L) >=60 mL/min/1. 73 m?? [facility] Comment: This patient's estimated GFR [...] In Lab Efren Suh MD CHEMISTRY ORDERABLES [facility] [address] * (ABNORMAL) PTH (08/14/2022 11:52 AM EDT) Parathyroid Hormone 76(H) 15 - 65 pg/mL [facility] Blood 08/14/2022 11:5 2 AM EDT 08/14/2022 11:59 AM EDT Narrative Resulting Agency Comment Spec In Lab Efren Suh MD CHEMISTRY ORDERABLES Performing Organization Address City/[facility]/ZIP Co de Phone Number [facility] [address] * Calcium (08/14/2022 11:52 AM EDT) Calcium 9.6 8.5 - 10.5 mg/dL [facility] Blood 08/14/2022 11:5 2 AM EDT 08/14/2022 11:59 AM EDT Narrative Resulting Agency Comment Spec In Lab Efren Suh MD CHEMISTRY ORDERABLES Performing Organization Address City/[facility]/ZIP Co de Phone Number [facility] [address] * Phosphorus (08/14/2022 11:52 AM EDT) Phosphorus 4.2 2.5 - 4.5 mg/dL [facility] Blood 08/14/2022 11:5 2 AM EDT 08/14/2022 11:59 AM EDT Narrative Resulting Agency Comment Spec In Lab Efren Suh MD CHEMISTRY ORDERABLES Performing Organization Address City/[facility]/ZIP Co de Phone Number [facility] [place] [address] documented in this encounter Visit Diagnoses Diagnosis Stage 3 chronic kidney disease, unspecified whether stage 3a or 3b CKD documented in this encounter Care Teams Used Car Sales Supervisor Relationship Specialty Start Date End Date Yumiko Tavarez MD [address] [place] [address] PCP - General Family Medicine 07/07/16 documented as of this encounter
--- OUTSIDE RECORDS SUMMARY | 2024-01-28 12:54 | XMS_ITS | Encounter Summary ---
[place] [address] Care Team Providers Care Habitat Conservation Planner Name Role Phone Yumiko Tavarez MD Primary Care Provider [phone] Encounter Details Date Type Department Care Team (Late Contact Info) Description 11/23/2022 Orders Only Neph[place] [address] Ligia Lopez [facility] [place] [address] Stage 3a chronic kidney disease Social History [...] 1:00 PM EST Office [place] [address] Alta Caban [facility] [place] [address] documented as of this encounter Results * [...] by: Rosalinda Gonzalez MD, [facility] ([phone]), at 01/02/2023 3:57 PM Thank you for letting us participate in the care of this patient. If you are a health care provider and have any questions regarding this report, please contact the number above. For patients who have questions, please contact the health care advocate that requested your imaging first. ?Rosalinda Gonzalez, Staff Physician Electronically Signed Final Report ?? 01/02/2023 04:03 pm Narrative 01/02/2023 4:04 PM EDT Renal ? (Signed Final 01/02/2023 04:03 pm) PATIENT INFO: ID #: ? [id number] ?: ??[birth year] (57 yrs)(F) Name: ? CYDNEY S ? Visit Date: 01/02/2023 02:02 pm ? LARRY PERFORMED BY: Attending: ?Rosalinda Gonzalez MD Performed By: ? Jany Avila RDMS Referred By: ?LIGIA LOPEZ Location: ? [place] SERVICE(S) PROVIDED: URETRO - Retroperitoneal Complete - [id number] ? [id number] INDICATIONS: 57 y.o. female CKD3, r/o anatomic [...] 01/02/2023 04:03 pm) PATIENT INFO: ID #: [id number] : [birth year] (57 yrs)(F) Name: CYDNEY Fuentes Visit Date: 01/02/2023 02:02 pm [place]AM[place]IN PERFORMED BY: Attending: Rosalinda Gonzalez MD Performed By: Jany Avila RDMS Referred By: LIGIA LOPEZ Location: [place] SERVICE(S) PROVIDED: URETRO - Retroperitoneal Complete - [id number] INDICATIONS: 57 y.o. female CKD3, r/o anatomic [...] who have questions, please contact the health care advocate that requested your imaging first. Rosalinda Gonzalez, Staff Physician Electronically Signed Final Report 01/02/2023 04:03 pm Ligia Lopez APRN IMG US GEN ORDERABLE S documented in this encounter Visit Diagnoses Diagnosis Stage 3a chronic kidney disease Stage 3a chronic kidney disease documented in this encounter Care Teams Habitat Conservation Planner Relationship Specialty Start Date End Date Yumiko Tavarez MD [address] [place] [address] PCP - General Family Medicine 07/07/16 documented as of this encounter
--- OUTSIDE RECORDS SUMMARY | 2024-01-28 12:54 | XMS_ITS | Encounter Summary ---
[place] [address] Care Team Providers Care Commission Broker Name Role Phone Yumiko Tavarez MD Primary Care Provider [phone] Reason for Visit * Diagnostic Test (Routine) - Closed Specialty Diagnoses / Procedures Referred By Contac t Referred To Contact Radiology Diagnoses Tremors of nervous system Procedures NM IRMA Scan Razia Mims MD [facility] [place] [address] [place] [address] Referral ID Status Reason Start Date Expiration Date V isits Requested Visits Authorized [id number] Closed Specialty Service Requested 12/18/2016 12/18/2017 3 3 Encounter Details Date Type Department Care Team (Latest Contact Info) Description 01/10/2017 9:57 AM EST - 01/10/2017 2:31 PM [facility] Hospital Encounter [place] [address] Razia Mims MD [facility] [place] [address] Discharge Disposition: Home Social History Tobacco Use [...] 1:00 PM EST Office [place] [address] Alta Caban APRN [facility] [place] [address] documented as of this encounter Procedures Procedure [...] mCi documented in this encounter Care Teams Commission Broker Relationship Specialty Start Date End Date Yumiko Tavarez MD [address] [place] [address] PCP - General Family Medicine 07/07/16 documented as of this encounter
--- OUTSIDE RECORDS SUMMARY | 2024-01-28 12:54 | XMS_ITS | Encounter Summary ---
Author Organization [facility] [place] [address] Care Team Providers Care Marine Specialist Name Role Phone Yumiko Tavarez MD Primary Care Provider [phone] Encounter Details Date Type Department Care Team (Late st Contact Info) Description 11/20/2018 [place] [phone] Razia Mims MD [facility] [place] [address] Preventive measure Social History Tobacco Use Types [...] 1:00 PM EST [place] [address] Alta Caban APRN [facility] [place] [address] documented as of this encounter Visit Diagnoses Diagnosis Preventive measure Unspecified prophylactic or treatment measure documented in this encounter Care Teams Marine Specialist Relationship Specialty Start Date End Date Yumiko Tavarez MD [address] [place] [address] PCP - General Family Medicine 07/07/16 documented as of this encounter
--- OUTSIDE RECORDS SUMMARY | 2024-01-28 12:54 | XMS_ITS | Encounter Summary ---
Author Organization [facility] [place] [address] Care Team Providers Care Computer Programmer Analyst Name Role Phone Yumiko Tavarez MD Primary Care Provider [phone] Encounter Details Date Type Department Care Team (Latest Contact Info) Description 01/02/2023 1:00 PM EDT Laboratory Appointment Lab [address] [place] [phone] Chronic kidney disease, unspecified CKD stage Social [...] 1:00 PM EST Office [place] [phone] Alta Caban APRN [facility] [place] [address] documented as of this encounter Procedures Procedure [...] 1:26 PM EDT) Creatinine, Urine 152 mg/dL [facility] Protein, Urine 7 0 - 12 mg/dL [facility] Protein / Creatinine Ratio, Urine <0.1 ratio [facility] Urine 01/02/2023 1:26 PM EDT 01/02/2023 1:38 PM EDT Narrative Resulting Agency Comment Spec In Lab Nenita Grimes FISH HATCHERY MAN URINE ORD ERABLES [facility] [place] [address] * (ABNORMAL) _Urinalysis with microscopic (01/02/2023 1:26 PM EDT) Glucose, Urine Dipstick Negative Negative mg/dL [facility] Protein, Urine Dipstick Negative Negative mg/dL [facility] Bilirubin, Urine Dipstick Negative Negative mg/dL [facility] Comment: Clinical correlation required for positive Urine Bilirubin results as false positive may occur with some drugs and drug related products. If a false positive is suspected a serum total bilirubin should be considered if clinically indicated. Urobilinogen, Urine Dipstick Normal Normal mg/dL [facility] pH, Urn (dipstick) 5.5 5.0 - 8.0 [facility] Blood, Urine Dipstick Moderate(A) Negative mg/dL [facility] Ketone, Urine Dipstick Negative Negative mg/dL [facility] Nitrite, Urine Dipstick Negative Negative [facility] Leukocytes, Urine Dipstick Negative Negative mcL [facility] Appearance, Urine Dipstick Clear Clear [facility] Specific [place] Urine Automated 1.016 1.005 - 1.030 [facility] Color, Urine Dipstick Yellow Yellow [facility] RBC, Urine 3 0 - 4 /HPF [facility] WBC, Urine 1 0 - 5 /HPF [facility] Bacteria, Urine Occasional(A ) None /HPF [facility] Squamous Epithelial Cells Raw Data, Urine 4 <=4 /HPF [facility] Hyaline Casts, Urine 5(H) 0 - 2 /LPF [facility] Urine 01/02/2023 1:26 PM EDT 01/02/2023 1:38 PM EDT Narrative Resulting Agency Comment Spec In Lab Nenita Grimes FISH HATCHERY MAN URINE ORD ERABLES [facility] [place] [address] * U Albumin/Cre Ratio (01/02/2023 1:26 PM EDT) Albumin / Creatinin Ratio, Urine 3 0 - 29 mcg/mg Cr [facility] Comment: Reference Ranges: <30 mcg/mg: Normal [...] 2, 357? 362 Albumin, Urine 3.9 mg/L [facility] Creatinine, Urine 152 mg/dL [facility] Urine 01/02/2023 1:26 PM EDT 01/02/2023 1:38 PM EDT Narrative Resulting Agency Comment Spec In Lab Nenita Grimes FISH HATCHERY MAN URINE ORD ERABLES [facility] [place] [address] * Differential, Automated (01/02/2023 1:18 PM EDT) Neutrophil % 56.6 % [facility] Neutrophil Absolute 3.39 1.70 - 6.10 x10(3)/[facility] Lymph % 35.5 % [facility] Lymphocytes Abs 2.1 0.9 - 3.2 x10(3)/[facility] Monocyte % 6.4 % [facility] Monocyte Abs 0.4 0.3 - 0.9 x10(3)/[facility] Eos % 0.8 % [facility] Eosinophils Abs 0.0 0.0 - 0.4 x10(3)/[facility] Basophil % 0.5 % [facility] Baso Absolute 0.0 0.0 - 0.1 x10(3)/[facility] Immature Gran % 0.20 % [facility] Comment: Immature granulocytes(IG's)percentage and absolute count will include metamyelocytes, myelocytes, and promyelocytes. Blood smears from CBCs yielding IG's will be scanned manually for concordance. If this scan disagrees with the automated IG or if promyelocytes are noted, a manual differential will be performed. Immature Gran Absolute 0.01 0.00 - 0.04 x10(3)/mcL [facility] Blood 01/02/2023 1:18 PM EDT 01/02/2023 1:26 PM EDT Narrative Resulting Agency Comment Spec In Lab Nenita Grimes FISH HATCH[employer] MAN HEMATOLOG Y ORDERABLES [facility] [place] [address] * (ABNORMAL) Hemogram (01/02/2023 1:18 PM EDT) White Blood Cell 6.0 4.0 - 9.5 x10(3)/mc L [facility] Red Blood Cell 3.96(L) 4.00 - 5.21 x10(6)/mc L [facility] Hemoglobin 12.9 11.7 - 15.5 g/dL [facility] Hematocrit 39.0 35.7 - 45.8 % [facility] Mean Cell Volume 98.5(H) 82.6 - 94.4 fL [facility] Mean Cell Hemoglobin 32.6(H) 27.1 - 32.0 pg [facility] Mean Cell Hemoglobin Concentration 33.1 31.7 - 35.0 g/dL [facility] Platelet 197 145 - 357 x10(3)/mc L [facility] RDW Standard Deviation 44.0 37.0 - 46.0 fL [facility] RDW coefficient of variation 12.2 11.5 - 14.1 % [facility] Mean Platelet Volume 11.1 7.6 - 12.9 fL [facility] NRBC% auto 0.0 % [facility] NRBC Absolute 0.000 0.000 - 0.000 x10(3)/mc L [facility] Blood 01/02/2023 1:18 PM EDT 01/02/2023 1:26 PM EDT Narrative Resulting Agency Comment Spec In Lab Nenita Leach Cornelio ROBERTN HEMATOLOG Y ORDERABLES Performing Organization Address City/[facility]/ZIP Co de Phone Number [facility] [place] [address] * Phosphorus (01/02/2023 1:18 PM EDT) Phosphorus 3.8 2.5 - 4.5 mg/dL [facility] Blood 01/02/2023 1:18 PM EDT 01/02/2023 1:26 PM EDT Narrative Resulting Agency Comment Spec In Lab Nenita Leach Cornelio LERNER CHEMISTRY ORDERABLES Performing Organization Address [facility] Co de Phone Number [facility] [place] [address] * (ABNORMAL) PTH (01/02/2023 1:18 PM EDT) Parathyroid Hormone 118(H) 15 - 65 pg/mL [facility] Blood 01/02/2023 1:18 PM EDT 01/02/2023 1:26 PM EDT Narrative Resulting Agency Comment Spec In Lab Nenita Leach Cornelio LERNER CHEMISTRY ORDERABLES Performing Organization Address [facility] Co de Phone Number [facility] [place] [address] * Vitamin D, 25-Hydroxy (01/02/2023 1:18 PM EDT) Vitamin D Total 25 OH 56 21 - 100 ng/mL [facility] Vit D Interp Sufficient [facility] Blood 01/02/2023 1:18 PM EDT 01/02/2023 1:26 PM EDT Narrative Resulting Agency Comment Spec In Lab Nenita Leach Cornelio LERNER CHEMISTRY ORDERABLES Performing Organization Address City/[facility]/ZIP Co de Phone Number [facility] [place] [address] * (ABNORMAL) Basic Metabolic Panel (non-fasting) (01/02/2023 1:18 PM EDT) Glucose 95 65 - 199 mg/dL [facility] Comment:Diabetes: >=200 mg/d L plus symptoms Blood Urea Nitrogen 13 8 - 18 mg/dL [facility] Creatinine 1.27(H) 0.70 - 1.20 mg/dL [facility] Sodium 141 135 - 145 mmol/L [facility] Potassium 4.4 3.5 - 5.0 mmol/L [facility] Comment: Please note: ??Patients with WBC >100,000 may have falsely elevated Potassium levels. ??For accurate Potassium quantification in these patients send serum separator tube (gold top) for subsequent determinations. ??Contact the Clinical Chemistry Laboratory if there are any questions. Chloride 104 98 - 107 mmol/L [facility] Carbon Dioxide 27 22 - 31 mmol/L [facility] Anion Gap 10 5 - 15 mmol/L [facility] Calcium 9.2 8.5 - 10.5 mg/dL [facility] Est Glomerular Filtration Rate 49(L) >=60 mL/min/1. 73 m?? [facility] Comment: This patient's estimated GFR was [...] Agency Comment Spec In Lab Nenita Grimes FISH HATCHERY MAN CHEMISTRY ORDERABLES [facility] [place] [address] * Albumin Level (01/02/2023 1:18 PM EDT) Albumin 4.0 3.2 - 5.2 g/dL [facility] Blood 01/02/2023 1:18 PM EDT 01/02/2023 1:26 PM EDT Narrative Resulting Agency Comment Spec In Lab Nenita Leach Cornelio FISH HATCHERY MAN CHEMISTRY ORDERABLES Performing Organization Address City/State/[facility] Co de Phone Number [facility] [place] [address] documented in this encounter Visit Diagnoses Diagnosis Chronic kidney disease, unspecified CKD stage documented in this encounter Care Teams Computer Programmer Analyst Relationship Specialty Start Date End Date Yumiko Tavarez MD [address] [place] [address] PCP - General Family Medicine 07/07/16 documented as of this encounter
--- OUTSIDE RECORDS SUMMARY | 2024-01-28 12:54 | XMS_ITS | Encounter Summary ---
Author Organization [facility] [place] [address] Care Team Providers Care Punch Machine Operator Name Role Phone Yumiko Tavarez MD Primary Care Provider [phone] Encounter Details Date Type Department Care Team (Late st Contact Info) Description 09/12/2018 11:00 AM EDT [place] [address] Razia Mims MD [facility] [place] [address] Primary Parkinsonism Social History Tobacco Use Types [...] Mims MD - 09/12/2018 11:00 AM EDT [facility] Movement Disorders Follow Up Patient Evaluation Date of service 09/12/2018 Referring provider Yumiko Tavarez MD [address] [place] [address] Cc: tremor History of present illness Miguelina [...] , Rfl: ??? naloxone (NARCAN) 4 mg/actuation [place], Non-Aerosol, 1 spray by Nasal route as [...] Disp: , Rfl: Social History: Lives in [facility] [place], she is retired from [employer]. Remote history of cocaine use (2 times [...] genetic testing Razia Mims MD [facility] Neurology-Movement Disorders documented in this encounter Plan of Treatment Upcoming Encounters Date Type Department Care Team (Late st Contact Info) Description 02/04/2024 1:00 PM EST [place] [address] Alta Caban APRN [facility] [place] [address] documented as of this encounter Visit Diagnoses Diagnosis Primary parkinsonism Paralysis agitans documented in this encounter Care Teams Punch Machine Operator Relationship Specialty Start Date End Date Yumiko Tavarez MD [address] [place] [address] PCP - General Family Medicine 5/5/17 documented as of this encounter
--- OUTSIDE RECORDS SUMMARY | 2024-01-28 12:54 | XMS_ITS | Encounter Summary ---
Author Organization [facility] [place] [address] Care Team Providers Care Adventure Therapist Name Role Phone Yumiko Tavarez MD Primary Care Provider [phone] Encounter Details Date Type Department Care Team (Late st Contact Info) Description 10/08/2018 [place] [address] Razia Mims MD [facility] [place] [address] Social History Tobacco Use Types Packs/Day Years [...] 1:00 PM EST [place] [address] Alta Caban APRN [facility] [place] [address] documented as of this encounter Visit Diagnoses Not on filedocumented in this encounter Care Teams Adventure Therapist Relationship Specialty Start Date End Date Yumiko Tavarez MD [address] [place] [address] PCP - General Family Medicine 07/07/16 documented as of this encounter
--- OUTSIDE RECORDS SUMMARY | 2024-01-28 12:54 | XMS_ITS | Encounter Summary ---
Author [place] [address] Care Team Providers Care Clinical Statistical Programmer Name Role Phone Yumiko Tavarez MD Primary Care Provider [phone] Encounter Details Date Type Department Care Team [...] 1:00 PM EST Office [place] [address] Alta Caban APRN [facility] [place] [address] documented as of this encounter Visit Diagnoses Not on filedocumented in this encounter Care Teams Clinical Statistical Programmer Relationship Specialty Start Date End Date Yumiko Tavarez MD [address] [place] [address] PCP - General Family Medicine 07/07/16 documented as of this encounter
--- OUTSIDE RECORDS SUMMARY | 2024-01-28 12:54 | XMS_ITS | Encounter Summary ---
Author Organization [facility] [place] [address] Care Team Providers Care Cdc Associate Name Role Phone Yumiko Tavarez MD Primary Care Provider [phone] Encounter Details Date Type Department Care Team (Late st Contact Info) Description 08/12/2018 [place] [phone] Razia Mims MD [facility] [place] [address] Social History Tobacco Use Types Packs/Day Years [...] 1:00 PM EST [place] [address] Alta Caban APRN [facility] [address] documented as of this encounter Visit Diagnoses Not on filedocumented in this encounter Care Teams Cdc Associate Relationship Specialty Start Date End Date Yumiko Tavarez MD [address] [place] [address] PCP - General Family Medicine 07/07/16 documented as of this encounter
--- OUTSIDE RECORDS SUMMARY | 2024-01-28 12:54 | XMS_ITS | Encounter Summary ---
Author Organization [facility] [place] [address] Care Team Providers Care Pig Caster Name Role Phone Yumiko Tavarez MD Primary Care Provider [phone] Reason for Visit * Reason Onset Date Comments Medication Refill 04/02/2019 Encounter Details Date Type Department Care Team (Late st Contact Info) Description 04/02/2019 [place] [address] Razia Mims MD [facility] [place] [address] Social History Tobacco Use Types Packs/Day Years [...] 1:00 PM EST [place] [address] Alta Caban APRN [facility] [place] [address] documented as of this encounter Visit Diagnoses Not on filedocumented in this encounter Care Teams Pig Caster Relationship Specialty Start Date End Date Yumiko Tavarez MD [address] [place] [address] PCP - General Family Medicine 07/07/16 documented as of this encounter
--- OUTSIDE RECORDS SUMMARY | 2024-01-28 12:54 | XMS_ITS | Encounter Summary ---
[place] [address] Care Team Providers Care Melt House Drag Operator Name Role Phone Yumiko Tavarez MD Primary Care Provider [phone] Encounter Details Date Type Department Care Team (Late st Contact Info) Description 02/05/2017 1:00 PM EST Office [place] [address] Razia Mims MD [facility] [place] [address] Primary Parkinsonism Social History Tobacco Use Types [...] Mims MD - 02/05/2017 1:00 PM EST [facility] Movement Disorders Follow Up Patient Evaluation Date of service 02/05/2017 Referring provider Yumiko Tavarez MD [address] [place] [address] Cc: tremor History of present illness Miguelina [...] LAPAROSCOPIC ??? VERTEBROPLASTY Social History: Lives in [place] [facility], she is retired from [employer]. Remote history of cocaine use Family History [...] consideration of ADCY5 testing Razia Mims MD [facility] Neurology-Movement Disorders documented in this encounter Plan of Treatment Upcoming Encounters Date Type Department Care Team (Late st Contact Info) Description 02/04/2024 1:00 PM EST Office [place] [address] Alta Caban APRN [facility] [place] [address] documented as of this encounter Visit Diagnoses Diagnosis Primary parkinsonism Paralysis agitans documented in this encounter Care Teams Melt House Drag Operator Relationship Specialty Start Date End Date Yumiko Tavarez MD [address] [place] [address] PCP - General Family Medicine 07/07/16 documented as of this encounter
--- OUTSIDE RECORDS SUMMARY | 2024-01-28 12:54 | XMS_ITS | Encounter Summary ---
[place] [address] Care Team Providers Care Data Center Consultant Name Role Phone Yumiko Tavarez MD Primary Care Provider Encounter Details Date Type Department Care Team (Late st Contact Info) Description 07/10/2018 2:00 PM EDT [place] [address] Razia Mims MD [facility] [place] [address] Primary Parkinsonism; Chorea Social History Tobacco Use [...] MD - 07/10/2018 2:00 PM EDT [facility] Movement Disorders Follow Up Patient Evaluation Date of service 07/10/2018 Referring provider Yumiko Tavarez MD [address] [place] [address] Cc: tremor History of present illness Miguelina [...] , Rfl: ??? naloxone (NARCAN) 4 mg/actuation [place], Non-Aerosol, by Nasal route as needed., Disp: [...] Heartburn.,Disp: , Rfl: Social History: Lives in [place] [facility] [place], she is retired from [employer]. Remote history of cocaine use Review of [...] genetic testing Razia Mims MD [facility] Neurology-Movement Disorders documented in this encounter Plan of Treatment Upcoming Encounters Date Type Department Care Team (Late st Contact Info) Description 02/04/2024 1:00 PM EST [place] [address] Alta Caban APRN [facility] [place] [address] documented as of this encounter Visit Diagnoses Diagnosis Primary parkinsonism Paralysis agitans Chorea Other choreas documented in this encounter Care Teams Data Center Consultant Relationship Specialty Start Date End Date Yumiko Tavarez MD [address] [place] [address] PCP - General Family Medicine 07/07/16 documented as of this encounter
--- OUTSIDE RECORDS SUMMARY | 2024-01-28 12:54 | XMS_ITS | Encounter Summary ---
Author Organization [facility] [place] [address] Care Team Providers Care Dust Collector Name Role Phone Yumiko Tavarez MD Primary Care Provider [phone] Reason for Visit * Reason Onset Date Comments Medication Refill 03/03/2019 Encounter Details Date Type Department Care Team (Late st Contact Info) Description 03/03/2019 [place] [address] Razia Mims MD [facility] [place] [address] Social History Tobacco Use Types Packs/Day Years [...] 1:00 PM EST [place] [address] Alta Caban APRN [facility] [place] [address] documented as of this encounter Visit Diagnoses Not on filedocumented in this encounter Care Teams Dust Collector Relationship Specialty Start Date End Date Yumiko Tavarez MD [address] [place] [address] PCP - General Family Medicine 07/07/16 documented as of this encounter
--- OUTSIDE RECORDS SUMMARY | 2024-01-28 12:54 | XMS_ITS | Encounter Summary ---
Author Organization [facility] [place] [address] Care Team Providers Care Paraeducator Name Role Phone Yumiko Tavarez MD Primary Care Provider [phone] Reason for Visit * Reason Onset Date Comments Medication Refill 01/21/2019 Encounter Details Date Type Department Care Team (Late st Contact Info) Description 01/21/2019 [place] [address] Razia Mims MD [facility] [place] [address] Social History Tobacco Use Types Packs/Day Years [...] 1:00 PM EST Office [place] [address] Alta Caban APRN [facility] [place] [address] documented as of this encounter Visit Diagnoses Not on filedocumented in this encounter Care Teams Paraeducator Relationship Specialty Start Date End Date Yumiko Tavarez MD [address] [place] [address] PCP - General Family Medicine 07/07/16 documented as of this encounter
--- OUTSIDE RECORDS SUMMARY | 2024-01-28 12:54 | XMS_ITS | Encounter Summary ---
[place] [address] Care Team Providers Care Squad Leader Name Role Phone Yumiko Tavarez MD [...] 1:00 PM EST [place] [address] Alta Caban APRN [facility] [place] [address] documented as of this encounter Visit Diagnoses Not on filedocumented in this encounter Care Teams Squad Leader Relationship Specialty Start Date End Date Yumiko Tavarez MD [address] [place] [address] PCP - General Family Medicine 07/07/16 documented as of this encounter
--- OUTSIDE RECORDS SUMMARY | 2024-01-28 12:54 | XMS_ITS | Encounter Summary ---
[place] [address] Care Team Providers Care Production Potter Name Role Phone Yumiko Tavarez MD Primary Care Provider [phone] Reason for Visit * Diagnostic Test (Routine) - Closed Specialty Diagnoses / Procedures Referred By Contac t Referred To Contact Radiology Diagnoses Tremors of nervous system Procedures NM IRMA Scan Razia Mims MD [facility] [place] [address] [place] [address] Referral ID Status Reason Start Date Expiration Date V isits Requested Visits Authorized [id number] Closed Specialty Service Requested 12/18/2016 12/18/2017 3 3 Encounter Details Date Type Department Care Team (Latest Contact Info) Description 01/10/2017 2:32 PM EST - 01/10/2017 11:59 PM [facility] Hospital Encounter [place] [address] Razia Mims MD [facility] [place] [address] Discharge Disposition: Home Social History Tobacco Use [...] 1:00 PM EST [place] [address] Alta Caban APRN [facility] [place] [address] documented as of this encounter Procedures Procedure [...] Narrative 01/10/2017 4:30 PM EST EXAMINATION: NM RIMA SCAN CLINICAL HISTORY: parkinsonism, per clinical history [...] at 01/10/2017 4:30 PM Razia Mims MD [facility] [place] ORDERABLES documented in this encounter Visit Diagnoses Not on filedocumented in this encounter Care Teams Production Potter Relationship Specialty Start Date End Date Yumiko Tavarez MD [address] [place] [address] PCP - General Family Medicine 07/07/16 documented as of this encounter
--- OUTSIDE RECORDS SUMMARY | 2024-01-28 12:54 | XMS_ITS | Encounter Summary ---
Author Organization [facility] [place] [address] Care Team Providers Care Solutions Consultant Name Role Phone Yumiko Tavarez MD Primary Care Provider [phone] Encounter Details Date Type Department Care Team (Late st Contact Info) Description 05/12/2018 [place] [id number] Razia Mims MD [facility] [place] [address] Social History Tobacco Use Types Packs/Day Years [...] 1:00 PM [place] [address] Alta Caban APRN [facility] [place] [address] documented as of this encounter Visit Diagnoses Not on filedocumented in this encounter Care Teams Solutions Consultant Relationship Specialty Start Date End Date Yumiko Tavarez MD [address] [place] [address] PCP - General Family Medicine 07/07/16 documented as of this encounter
--- OUTSIDE RECORDS SUMMARY | 2024-01-28 12:54 | XMS_ITS | Encounter Summary ---
Author Organization [facility] [place] [address] Care Team Providers Care Freelance Art Director Name Role Phone Yumiko Tavarez MD Primary Care Provider [phone] Encounter Details Date Type Department Care Team (Late st Contact Info) Description 05/10/2018 [place] [address] Razia Mims MD [facility] [place] [address] Social History Tobacco Use Types Packs/Day Years [...] Salazar - 05/10/2018 9:32 AM EST Clinical [place] Message Caller: Miguelina If not Pt / Relation to pt: Call back Number: [phone] Best time to reach caller: Anytime Reason [...] 1:00 PM EST [place] [address] Alta Caban APRN [facility] [place] [address] documented as of this encounter Visit Diagnoses Not on filedocumented in this encounter Care Teams Freelance Art Director Relationship Specialty Start Date End Date Yumiko Tavarez MD [address] [place] [address] PCP - General Family Medicine 07/07/16 documented as of this encounter
--- OUTSIDE RECORDS SUMMARY | 2024-01-28 12:54 | XMS_ITS | Encounter Summary ---
Author Organization [facility] [place] [address] Care Team Providers Care Customer Experience Consultant Name Role Phone Yumiko Tavarez MD Primary Care Provider [phone] Encounter Details Date Type Department Care Team (Late st Contact Info) Description 10/10/2018 Orders [place] [phone] Razia Mims MD [facility] [place] [address] Social History Tobacco Use Types Packs/Day Years [...] 1:00 PM EST Office [place] [address] Alta Caban APRN [facility] [place] [address] documented as of this encounter Visit Diagnoses Not on filedocumented in this encounter Care Teams Customer Experience Consultant Relationship Specialty Start Date End Date Yumiko Tavarez MD [address] [place] [address] PCP - General Family Medicine 07/07/16 documented as of this encounter
--- OUTSIDE RECORDS SUMMARY | 2024-01-28 12:54 | XMS_ITS | Encounter Summary ---
Author Organization [facility] [place] [address] Care Team Providers Care Machine Hand Name Role Phone Yumiko Tavarez MD Primary Care Provider [phone] Encounter Details Date Type Department Care Team (Late st Contact Info) Description 01/21/2019 [place] [address] Razia Mims MD [facility] [place] [address] Social History Tobacco Use Types Packs/Day Years [...] Bobby - 01/21/2019 11:06 AM EST Clinical [place] Message Caller: Miguelina Call back Number: [phone] Reason for call: EKG Message/information for the [...] 1:00 PM [place] [address] Alta Caban APRN [facility] [place] [address] documented as of this encounter Visit Diagnoses Not on filedocumented in this encounter Care Teams Machine Hand Relationship Specialty Start Date End Date Yumiko Tavarez MD [address] [place] [address] PCP - General Family Medicine 07/07/16 documented as of this encounter
--- OUTSIDE RECORDS SUMMARY | 2024-01-28 12:54 | XMS_ITS | Encounter Summary ---
Author Organization [facility] [place] [address] Care Team Providers Care Mobile Health Vehicle Operator Name Role Phone Yumiko Tavarez MD Primary Care Provider [phone] Reason for Visit * Reason Onset Date Comments Medication Refill 01/22/2017 Encounter Details Date Type Department Care Team (Late st Contact Info) Description 01/22/2017 [place] [address] Razia Mims MD [facility] [place] [address] Social History Tobacco Use Types Packs/Day Years [...] 1:00 PM EST Office [place] [address] Alta Caban APRN [facility] [place] [address] documented as of this encounter Visit Diagnoses Not on filedocumented in this encounter Care Teams Mobile Health Vehicle Operator Relationship Specialty Start Date End Date Yumiko Tavarez MD [address] [place] [address] PCP - General Family Medicine 07/07/16 documented as of this encounter
--- OUTSIDE RECORDS SUMMARY | 2024-01-28 12:54 | XMS_ITS | Encounter Summary ---
Author Organization [facility] [place] [address] Care Team Providers Care Webmethods Consultant Name Role Phone Yumiko Tavarez MD Primary Care Provider [phone] Reason for Visit * Reason Onset Date Comments Other 03/01/2018 Encounter Details Date Type Department Care Team (Late st Contact Info) Description 03/01/2018 [place] [address] Razia Mims MD [facility] [place] [address] Other Social History Tobacco Use Types Packs/Day [...] Wagner - 03/01/2018 8:08 AM EST Clinical Contact Center Associate Message Caller: Patient If not Pt / [...] 1:00 PM [place] [address] Alta Caban APRN [facility] [place] [address] documented as of this encounter Visit Diagnoses Not on filedocumented in this encounter Care Teams Webmethods Consultant Relationship Specialty Start Date End Date Yumiko Tavarez MD [address] [place] [address] PCP - General Family Medicine 07/07/16 documented as of this encounter
--- OUTSIDE RECORDS SUMMARY | 2024-01-28 12:54 | XMS_ITS | Encounter Summary ---
Author Organization [facility] [place] [address] Care Team Providers Care Photogrammetrist Name Role Phone Yumiko Tavarez MD Primary Care Provider [phone] Reason for Visit * Reason Onset Date Comments Other 02/04/2019 tetrabenazine Encounter Details Date Type Department Care Team (Late st Contact Info) Description 02/04/2019 Telephone [place] [address] Razia Mims MD [facility] [place] [address] Other (tetrabenazine) Social History Tobacco Use Types [...] EST Insurance information and clinicals faxed to [employer] on 02/13/19 at 2:02 pm to fax number [phone]. * Telephone Encounter - Whit Juares - 02/13/2019 12:05 PM EST Rocío Byrnesrena called to ask that pt's insurance information and the clinicals regarding the medication be faxed to [phone]. * Telephone Encounter - Nishi Gee RN - 02/12/2019 2:22 PM EST Tetrabenazine order form faxed to [employer] on 02/12/19 at 2:23 pm to fax number [phone].Copy sent to medical records to be scanned [...] Red - 02/05/2019 4:36 PM EST Clinical [place] Message Caller: Miguelina Bradford not Pt / Relation to pt: Call back Number: [phone] Reason for call: Pt states that she [...] Red - 02/04/2019 4:09 PM EST Clinical [place] Message Caller: Miguelina If not Pt / Relation to pt: Call back Number: [phone] Reason for call: Pts medication Message/information for [...] 1:00 PM EST Office [place] [address] Alta Caban APRN [facility] [place] [address] documented as of this encounter Visit Diagnoses Not on filedocumented in this encounter Care Teams Photogrammetrist Relationship Specialty Start Date End Date Yumiko Tavarez MD [address] [place] [address] PCP - General Family Medicine 07/07/16 documented as of this encounter
--- OUTSIDE RECORDS SUMMARY | 2024-01-28 12:54 | XMS_ITS | Encounter Summary ---
Author Organization [facility] [place] [address] Care Team Providers Care Bladder Trimmer Name Role Phone Yumiko Tavraez MD Primary Care Provider [phone] Reason for Visit * Reason Onset Date Comments Medication Problem 03/04/2020 Encounter Details Date Type Department Care Team (Late st Contact Info) Description 03/04/2020 Telephone [place] [address] Razia Mims MD [facility] [place] [address] Medication Problem Social History Tobacco Use Types [...] 03/04/2020 11:22 AM EST Call Center / Metallurgist Helper Message - Medication Issue (Not to be used for refill request or medication prior auth request) Provider patient sees in Clinic: Dr. Mims Caller and relationship (if other than patient-full name): Dick Rothman patient support program Call Back Number: [phone] Ok to leave a message: Reason for [...] 1:00 PM EST Office [place] [address] Alta Caban APRN [facility] [place] [address] documented as of this encounter Visit Diagnoses Not on filedocumented in this encounter Care Teams Bladder Trimmer Relationship Specialty Start Date End Date Yumiko Tavarez MD [address] [place] [address] PCP - General Family Medicine 07/07/16 documented as of this encounter
--- OUTSIDE RECORDS SUMMARY | 2024-01-28 12:54 | XMS_ITS | Encounter Summary ---
Author Organization [facility] [place] [address] Care Team Providers Care Director Of Litigation Name Role Phone Yumiko Tavarez MD Primary Care Provider [phone] Encounter Details Date Type Department Care Team (Late st Contact Info) Description 03/04/2020 [place] [address] Razia Aragon MD [facility] [place] [place] [address] Social History Tobacco Use Types Packs/Day Years [...] illegible, Card numbers and information called into [employer] [place] program number * Telephone Encounter - Nishi Gonsalves RN - 03/04/2020 12:37 PM EST form refaxed * Telephone Encounter - Kay Mak - 03/04/2020 11:24 AM EST Call Center / [place] Message - General Issue Call Provider patient sees in Clinic: Jamie Aragon Caller and relationship (if other than patient-full name): Harrison Quiñones patient support program Call back number: [phone] Ok to leave a message: y Reason [...] 1:00 PM [place] [address] Alta Caban APRN [facility] [place] [address] documented as of this encounter Visit Diagnoses Not on filedocumented in this encounter Care Teams Director Of Litigation Relationship Specialty Start Date End Date Yumiko Tavarez MD [address] [place] [address] PCP - General Family Medicine 07/07/16 documented as of this encounter
--- OUTSIDE RECORDS SUMMARY | 2024-01-28 12:54 | XMS_ITS | Encounter Summary ---
[place] [address] Care Team Providers Care Rope Machine Setter Name Role Phone Yumiko Tavarez MD Primary Care Provider [phone] Encounter Details Date Type Department Care Team (Late Contact Info) Description 11/22/2022 Orders Only [place]ph[place] [address] [address] [facility] [place] [address] Stage 3a chronic kidney disease; Hyperparathyroidism Social [...] 1:00 PM EST [place] [address] Alta Caban [facility] [place] [address] documented as of this encounter Results * Vitamin D, 25-Hydroxy (05/08/2023 1:54 PM EST) Vitamin D Total 25 OH 47 21 - 100 ng/mL [facility] Vit D Interp Sufficient [facility] Blood 05/08/2023 1:54 PM EST 05/08/2023 2:00 PM EST Narrative Resulting Agency Comment Spec In Lab Ligia Lopez APRN CHEMISTRY ORDERABLES Performing Organization Address City/[facility]/ZIP Co de Phone Number [facility] [address] * Phosphorus (05/08/2023 1:54 PM EST) Phosphorus 3.6 2.5 - 4.5 mg/dL [facility] Blood 05/08/2023 1:54 PM EST 05/08/2023 2:00 PM EST Narrative Resulting Agency Comment Spec In Lab Ligia Lopez APRN CHEMISTRY ORDERABLES Performing Organization Address [facility] Co de Phone Number [facility] [address] * (ABNORMAL) Uric acid (05/08/2023 1:54 PM EST) Uric Acid 6.8(H) 2.5 - 6.5 mg/dL [facility] Blood 05/08/2023 1:54 PM EST 05/08/2023 2:00 PM EST Narrative Resulting Agency Comment Spec In Lab Ligia Lopez APRN CHEMISTRY ORDERABLES Performing Organization Address City/[facility] Co de Phone Number [facility] [address] * Albumin Level (05/08/2023 1:54 PM EST) Albumin 4.1 3.2 - 5.2 g/dL [facility] Blood 05/08/2023 1:54 PM EST 05/08/2023 2:00 PM EST Narrative Resulting Agency Comment Spec In Lab Ligia Lopez APRN CHEMISTRY ORDERABLES Performing Organization Address City/[facility]/ZIP Co de Phone Number [facility] [address] * (ABNORMAL) PTH (05/08/2023 1:54 PM EST) Parathyroid Hormone 84(H) 15 - 65 pg/mL [facility] Blood 05/08/2023 1:54 PM EST 05/08/2023 2:00 PM EST Narrative Resulting Agency Comment Spec In Lab Ligia Isaac John LERNER CHEMISTRY ORDERABLES [facility] [address] * (ABNORMAL) Basic Metabolic Panel (non-fasting) (05/08/2023 1:54 PM EST) Glucose 89 65 - 199 mg/dL [facility] Comment:Diabetes: >=200 mg/d L plus symptoms Blood Urea Nitrogen 11 8 - 18 mg/dL [facility] Creatinine 1.45(H) 0.70 - 1.20 mg/dL [facility] Sodium 140 135 - 145 mmol/L [facility] Potassium 4.0 3.5 - 5.0 mmol/L [facility] Comment: Please note: ??Patients with WBC >100,000 may have falsely elevated Potassium levels. ??For accurate Potassium quantification in these patients send serum separator tube (gold top) for subsequent determinations. ??Contact the Clinical Chemistry Laboratory if there are any questions. Chloride 102 98 - 107 mmol/L [facility] Carbon Dioxide 29 22 - 31 mmol/L [facility] Anion Gap 9 5 - 15 mmol/L [facility] Calcium 9.2 8.5 - 10.5 mg/dL [facility] Est Glomerular Filtration Rate 41(L) >=60 mL/min/1. 73 m?? [facility] Comment: This patient's estimated GFR was [...] Comment Spec In Lab Ligia Poncho Lopez HEAT TRANSFER TECHNICIAN CHEMISTRY ORDERABLES Performing Organization Address City/State/[facility] Co de Phone Number [facility] [address] documented in this encounter Visit Diagnoses Diagnosis Stage 3a chronic kidney disease Hyperparathyroidism Hyperparathyroidism, unspecified documented in this encounter Care Teams Rope Machine Setter Relationship Specialty Start Date End Date Yumiko Tavarez MD [address] [place] [address] PCP - General Family Medicine 07/07/16 documented as of this encounter
--- OUTSIDE RECORDS SUMMARY | 2024-01-28 12:54 | XMS_ITS | Encounter Summary ---
Author Organization [facility] [place] [address] Care Team Providers Care Ginning Operator Name Role Phone Yumiko Tavarez MD Primary Care Provider [phone] Encounter Details Date Type Department Care Team (Late st Contact Info) Description 12/07/2022 Telephone Neurology at [address] [address] Razia Mims MD [facility] [place] [address] Social History Tobacco Use Types Packs/Day Years [...] I called Miguelina at her mobile number [phone]. Spoke with patient. Patient states her IRMA scan at in 2017 showed Parkinson's and her IRMA scan at [facility] in 2019 showed no Parkinson's. Pt looking forexplanation. Pt encouraged to speak with her neurologist at [facility] who did not have an explanation. Ptstated she had to go as she had to get on a zoom call with her [facility] neurologist. Pt stated she did not require follow-up. * Telephone Encounter - Noris Amin RN - 12/07/2022 10:27 AM EDT Copied from [facility] #[id number]. Topic: Specialty Dept CRMs - Test Results [...] to discuss. Where Was This Test Performed: [facility] documented in this encounter Plan of Treatment Upcoming Encounters Date Type Department Care Team (Late st Contact Info) Description 02/04/2024 1:00 PM EST Office [place] [address] Alta Caban APRN [facility] [place] [address] documented as of this encounter Visit Diagnoses Not on filedocumented in this encounter Care Teams Ginning Operator Relationship Specialty Start Date End Date Yumiko Tavarez MD [address] [place] [address] PCP - General Family Medicine 07/07/16 documented as of this encounter
--- OUTSIDE RECORDS SUMMARY | 2024-01-28 12:55 | XMS_ITS | Encounter Summary ---
Author Organization [facility] [place] [address] Care Team Providers Care Sewer Head Name Role Phone Serafin Glass MD Primary Care Provider + Encounter Details Date Type Department Care Team (Late st Contact Info) Description 12/05/2005 Orders [place] [address] Marty Nick MD [facility] [place] [address] Social History Tobacco Use Types Packs/Day Years [...] 1:00 PM [place] [address] Alta Caban APRN [facility] [place] [address] documented as of this encounter Procedures Procedure [...] is a Non-reportable exam Marty Nick MD [facility] FILM LIBRARY ORDERABLES documented in this encounter Visit Diagnoses Not on filedocumented in this encounter Care Teams Sewer Head Relationship Specialty Start Date End Date Serafin Glass MD [address] [place] [address] PCP - General 01/25/10 07/06/16 documented as of this encounter
--- OUTSIDE RECORDS SUMMARY | 2024-01-28 12:55 | XMS_ITS | Encounter Summary ---
Author Organization [facility] [place] [address] Care Team Providers Care Elementary [employer] Teacher Name Role Phone Yumiko Tavarez MD Primary Care Provider Encounter Details Date Type Department Care Team (Late st Contact Info) Description 11/20/2016 1:40 PM EDT Laboratory Appointment Lab [address] [place] [phone] Ch[place] Social History Tobacco Use Types Packs/Day [...] 1:00 PM EST [place] [phone] Alta Caban APRN [facility] [place] [address] documented as of this encounter Procedures Procedure [...] Chorea documented in this encounter Results * [facility] Jones Test-Justin (11/20/2016 1:50 PM EDT) [facility] Jones Test ?Result ? Flag ??Unit ??RefValue [place] Disease Analysis ??Result Summary ?NEGATIVE ??Result ?CAG [...] penetrance: >39 ?An online research opportunity called [employer] ?([employer] ), a project of [employer], is available for ?the recipient of this genetic test. This patient registry ?collects de-identified genetic and health information to ?advance the knowledge of genetic variants. [facility] is a ?collaborator of [employer]. This may not be applicable for all [...] allogenic donors will ?interfere with testing. Call [facility] [employer] for ?instructions for testing patients who have received a bone ?marrow transplant. ?Multiple in-silico evaluation tools may have been used to ?assist in the interpretation of these results. Of note, the ?sensitivity and specificity of these tools for the ?determination of pathogenicity is currently unvalidated. ?This test was developed and its performance characteristics ?determined by [facility] in a manner consistent with CLIA ?requirements. This test has not been cleared or approved by ?the U.S. Food and Drug Administration. ??Reason for Referral ? SEE COMMENTS ?Evaluation for a diagnosis of Krysta disease (HD). Test ?for the presence of an expansion in the HTT gene. ??Specimen ?WB Whole Blood ??Released By ? Angelica Crawford M.D. ?Test Performed by: ?[facility] ?[address], [place] [id number] [place] [address] LABORATORY Blood specimen (specimen) Venous Draw / Unknown 11/20/2016 1:50 PM EDT 11/20/2016 4:05 PM EDT Narrative Resulting Agency Comment Spec In Lab Razia Mims MD LAB SEND OUT ORDER [place] [facility] [place] [address] * Differential, Automated (11/20/2016 1:49 PM EDT) Neutrophil % 49.9 % [facility] Neutrophil Absolute 3.35 1.70 - 6.10 x10(3)/[facility] LABORATORY Lymph % 43.5 % [facility] Lymphocytes Abs 2.9 0.9 - 3.2 x10(3)/[facility] LABORATORY Monocyte % 5.6 % [facility] Monocyte Abs 0.4 0.3 - 0.9 x10(3)/[facility] LABORATORY Eos % 0.6 % [facility] Eosinophils Abs 0.0 0.0 - 0.4 x10(3)/[facility] LABORATORY Basophil % 0.3 % [facility] Baso Absolute 0.0 0.0 - 0.1 x10(3)/[facility] LABORATORY Immature Gran % 0.10 % [facility] Comment: Immature granulocytes(IG's)percentage and absolute count will include metamyelocytes, myelocytes, and promyelocytes. Blood smears from CBCs yielding IG's will be scanned manually for concordance. If this scan disagrees with the automated IG or if promyelocytes are noted, a manual differential will be performed. Immature Gran Absolute 0.01 0.00 - 0.04 x10(3)/[facility] LABORATORY Blood specimen (specimen) 11/20/2016 1:49 PM EDT 11/20/2016 2:01 PM EDT Narrative Resulting Agency Comment Spec In Lab Razia Mims MD HEMATOLOGY ORDERAB LES [facility] [place] [address] * (ABNORMAL) Hemogram (11/20/2016 1:49 PM EDT) White Blood Cell 6.7 4.0 - 9.5 x10(3)/ L [facility] Red Blood Cell 3.99(L) 4.00 - 5.21 x10(6)/ L [facility] Hemoglobin 12.8 11.7 - 15.5 gm/dL [facility] Hematocrit 37.4 35.7 - 45.8 % [facility] Mean Cell Volume 93.7 82.6 - 94.4 fL [facility] Mean Cell Hemoglobin 32.1(H) 27.1 - 32.0 pg [facility] Mean Cell Hemoglobin Concentration 34.2 31.7 - 35.0 gm/dL [facility] Platelet 262 145 - 357 x10(3)/mc L [facility] RDW Standard Deviation 38.8 37.0 - 46.0 fL [facility] RDW coefficient of variation 11.4(L) 11.5 - 14.1 % [facility] Mean Platelet Volume 10.3 7.6 - 12.9 fL [facility] NRBC% auto 0.0 % [facility] NRBC Absolute 0.000 0.000 - 0.000 x10(3)/mc L [facility] Blood specimen (specimen) 11/20/2016 1:49 PM EDT 11/20/2016 2:01 PM EDT Narrative Resulting Agency Comment Spec In Lab Razia Mims MD HEMATOLOGY ORDERAB LES Performing Organization Address [facility] Co de Phone Number [facility] [place] [address] * Lyme IgG & IgM Antibody (11/20/2016 1:49 PM EDT) Lyme Antibody Neg Neg [facility] Blood specimen (specimen) 11/20/2016 1:49 PM EDT 11/21/2016 8:31 AM EDT Narrative Resulting Agency Comment Spec In Lab Razia Mims MD IMMUNOLOGY ORDERAB LES Performing Organization Address [facility] Co de Phone Number [facility] [place] [address] * Ceruloplasmin (11/20/2016 1:49 PM EDT) Ceruloplasmin 37.5 16.0 - 45.0 mg/dL [facility] Blood specimen (specimen) 11/20/2016 1:49 PM EDT 11/20/2016 2:01 PM EDT Narrative Resulting Agency Comment Spec In Lab Razia Mims MD CHEMISTRY ORDERABL ES Performing Organization Address [facility] Co de Phone Number [facility] [place] [address] * Miscellaneous Lab request (11/20/2016 1:49 PM EDT) Label Request received in lab. [facility] Blood specimen (specimen) 11/20/2016 1:49 PM EDT 11/20/2016 2:01 PM EDT Narrative Resulting Agency Comment Spec In Lab Razia Mims MD LAB SEND OUT ORDER [place] Performing Organization Address [facility] Co de Phone Number [facility] [place] [address] * Streptococcal Antibody Panel (11/20/2016 1:49 PM EDT) [facility] Aso Titer (JULY) 44 0 - 530 IU/mL [facility] Comment: Test Performed by: [facility] [address] [place] [address] Dnase B Ab (JULY) <74 0 - 300 unit/mL [facility] Comment: Test Performed by: [facility] [address] [place] [address] Blood specimen (specimen) 11/20/2016 1:49 PM EDT 11/20/2016 4:01 PM EDT Narrative Resulting Agency Comment Spec In Lab Razia Mims MD LAB SEND OUT ORDER [place] Performing Organization Address [facility]/ZIP Co de Phone Number [facility] [place] [address] * C4 Complement (11/20/2016 1:49 PM EDT) Complement C4 27 10 - 40 mg/dL [facility] Blood specimen (specimen) 11/20/2016 1:49 PM EDT 11/20/2016 2:01 PM EDT Narrative Resulting Agency Comment Spec In Lab Razia Mims MD CHEMISTRY ORDERABL ES Performing Organization Address [facility]/ZIP Co de Phone Number [facility] [place] [address] * C3 Complement (11/20/2016 1:49 PM EDT) Complement C3 119 90 - 180 mg/dL [facility] Blood specimen (specimen) 11/20/2016 1:49 PM EDT 11/20/2016 2:01 PM EDT Narrative Resulting Agency Comment Spec In Lab Razia Mims MD CHEMISTRY ORDERABL ES Performing Organization Address [facility]/ZIP Co de Phone Number [facility] [place] [address] * T4, free (11/20/2016 1:49 PM EDT) Free T4 1.04 0.93 - 1.70 ng/dL [facility] Blood specimen (specimen) 11/20/2016 1:49 PM EDT 11/20/2016 2:01 PM EDT Narrative Resulting Agency Comment Spec In Lab Razia Mims MD CHEMISTRY ORDERABL ES Performing Organization Address City/[facility]/ZIP Co de Phone Number [facility] [place] [address] * ARMEN (11/20/2016 1:49 PM EDT) ARMEN Neg Neg [facility] Blood specimen (specimen) 11/20/2016 1:49 PM EDT 11/21/2016 7:30 AM EDT Narrative Resulting Agency Comment Spec In Lab Razia Mims MD LAB SEND OUT ORDER [place] Performing Organization Address [facility] de Phone Number [facility] [place] [address] * Cardiolipin Antibody Screen (11/20/2016 1:49 PM EDT) Cardiolipin Antibody IgG <23 <=22 GPL unit(s) [facility] Comment: Ranges ? GPL ------- ? ------ Normal ?<23 Low Positive ? 23-35 Moderate Positive ?36-50 High Positive ? >50 Cardiolipin Antibody IgM <11 <=10 MPL unit(s) [facility] Comment: Ranges ?MPL ----- ?----- Normal ?<11 Low Positive ? 11-20 Moderate Positive ?21-30 High Positive ? >30 Blood specimen (specimen) 11/20/2016 1:49 PM EDT 11/21/2016 7:30 AM EDT Narrative Resulting Agency Comment Spec In Lab Razia Mims MD IMMUNOLOGY ORDERAB LES Performing Organization Address [facility]/State/ZIP Co de Phone Number [facility] [place] [address] * (ABNORMAL) Comprehensive metabolic panel (non-fasting) (11/20/2016 1:49 PM EDT) Glucose 85 65 - 199 mg/dL [facility] Comment:Diabetes: >=200 mg/d L plus symptoms Blood Urea Nitrogen 18 8 - 18 mg/dL [facility] Creatinine 1.12 0.70 - 1.20 mg/dL [facility] Comment: Please note that the pediatric reference intervals supplied above were not validated at [facility]. Results from pediatric patients should be interpreted in conjunction to the patient's age, height and muscle mass. Sodium 141 135 - 145 mmol/L [facility] Potassium 3.8 3.5 - 5.0 mmol/L [facility] Comment: Please note: ??Patients with WBC >100,000 may have falsely elevated Potassium levels. ??For accurate Potassium quantification in these patients send serum separator tube (gold top) for subsequent determinations. ??Contact the Clinical Chemistry Laboratory if there are any questions. Chloride 99 98 - 107 mmol/L [facility] Carbon Dioxide 31 22 - 31 mmol/L [facility] Anion Gap 11 5 - 15 mmol/L [facility] Calcium 9.6 8.5 - 10.5 mg/dL [facility] Protein, Total 7.5 6.1 - 8.0 gm/dL [facility] Albumin 4.2 3.2 - 5.2 gm/dL [facility] Aspartate Aminotransferase 17 0 - 30 unit/L [facility] Alanine Aminotransferase 11 0 - 30 unit/L [facility] Alkaline Phosphatase 53 40 - 104 unit/L [facility] Bilirubin, Total 0.2 0.2 - 1.3 mg/dL [facility] Est Glomerular Filtration Rate 51(L) >=60 [facility] Comment: This estimated GFR [...] the following links into your internet browser. [email or web address] Blood specimen (specimen) 11/20/2016 1:49 PM EDT 11/20/2016 2:01 PM EDT Narrative Resulting Agency Comment Spec In Lab Razia Mims MD CHEMISTRY ORDERABL ES [facility] [place] [address] documented in this encounter Visit Diagnoses Diagnosis Chorea Other choreas documented in this encounter Care Teams [employer] Teacher Relationship Specialty Start Date End Date Yumiko Tavarez MD [address] [place] [address] PCP - General Family Medicine 07/07/16 documented as of this encounter
--- OUTSIDE RECORDS SUMMARY | 2024-01-28 12:55 | XMS_ITS | Encounter Summary ---
[place] [address] Care Team Providers Care Chemistry Lecturer Name Role Phone Yumiko Tavarez MD Primary Care Provider [phone] Reason for Referral * Diagnostic Test (Routine) - Closed Specialty Diagnoses / Procedures Referred By Warren dennis Referred To Contact Radiology Diagnoses Chorea Procedures MRI Brain wo Contrast Razia Mims MD [facility] [place] [address] [place] [address] Referral ID Status Reason Start Date Expiration Date V isits Requested Visits Authorized [id number] Closed Specialty Service Requested 11/07/2016 02/05/2017 1 1 Reason for Visit * Diagnostic Test (Routine) - Closed Specialty Diagnoses / Procedures Referred By Warren dennis Referred To Contact Radiology Diagnoses Chorea Procedures MRI Brain wo Contrast Razia Mims MD [facility] [place] [address] [place] [address] Referral ID Status Reason Start Date Expiration Date V isits Requested Visits Authorized [id number] Closed Specialty Service Requested 11/07/2016 02/05/2017 1 1 Encounter Details Date Type Department Care Team (Latest Contact Info) Description 11/20/2016 1:54 PM EDT - 11/20/2016 11:59 PM EDT Hospital [place] [address] Razia Mims MD [facility] [place] [address] Chorea Discharge Disposition: Home Social History Tobacco [...] 1:00 PM EST [place] [address] Alta Caban APRN [facility] [place] [address] documented as of this encounter Procedures Procedure [...] choreas documented in this encounter Care Teams Chemistry Lecturer Relationship Specialty Start Date End Date Yumiko Tavarez MD [address] [place] [address] PCP - General Family Medicine 07/07/16 documented as of this encounter
--- OUTSIDE RECORDS SUMMARY | 2024-01-28 12:55 | XMS_ITS | Encounter Summary ---
Author Organization [facility] [place] [address] Care Team Providers Care Shop Fitter Name Role Phone Yumiko Tavarez MD Primary Care Provider [phone] Encounter Details Date Type Department Care Team (Late st Contact Info) Description 11/03/2016 Orders [place] [address] Frank Jovel Social History Tobacco Use Types [...] 1:00 PM EST [place] [address] Alta Caban APRN [facility] [place] [address] documented as of this encounter Visit Diagnoses Not on filedocumented in this encounter Care Teams Shop Fitter Relationship Specialty Start Date End Date Yumiko Tavarez MD [address] [place] [address] PCP - General Family Medicine 07/07/16 documented as of this encounter
--- OUTSIDE RECORDS SUMMARY | 2024-01-28 12:55 | XMS_ITS | Encounter Summary ---
Author Organization [facility] [place] [address] Care Team Providers Care Fish Stringer Assembler Name Role Phone Serafin Glass MD Primary Care Provider + Encounter Details Date Type Department Care Team (Late st Contact Info) Description 02/23/2011 Orders [place] [phone] Marty Nick MD [facility] [place] [address] Social History Tobacco Use Types Packs/Day Years [...] 1:00 PM EST [place] [phone] Alta Caban APRN [facility] [place] [address] documented as of this encounter Procedures Procedure [...] a Non-reportable exam Marty Nick MD [facility] FILM LIBRARY ORDERABLES documented in this encounter Visit Diagnoses Not on filedocumented in this encounter Care Teams Fish Stringer Assembler Relationship Specialty Start Date End Date Serafin Glass MD [address] [place] [address] PCP - General 01/25/10 07/06/16 documented as of this encounter
--- OUTSIDE RECORDS SUMMARY | 2024-01-28 12:55 | XMS_ITS | Encounter Summary ---
Author Organization [facility] [place] [address] Care Team Providers Care Pinball Machine Repairer Name Role Phone Serafin Glass MD Primary Care Provider + Encounter Details Date Type Department Care Team (Late st Contact Info) Description 03/17/2014 10:45 AM EST Office [place] [address] Marty Nick MD [facility] [place] [address] Chronic pain syndrome Discharge Disposition: Home Social [...] is as mentioned. She lives alone in [place], [place]. She has no prior history of [...] was seen by Dr. Iain gray at [facility] at about the same time in [...] help, but I did discuss the functional hinduism program with her and I discussed an [...] 1:00 PM EST [place] [address] Alta Caban APRN [facility] [place] [address] documented as of this encounter Visit Diagnoses Diagnosis Chronic pain syndrome documented in this encounter Care Teams Pinball Machine Repairer Relationship Specialty Start Date End Date Serafin Glass MD [address] [place] [address] PCP - General 01/25/10 07/06/16 documented as of this encounter
--- OUTSIDE RECORDS SUMMARY | 2024-01-28 12:55 | XMS_ITS | Encounter Summary ---
Author Organization [facility] [place] [address] Care Team Providers Care Floor Installation Mechanic Name Role Phone Serafin Glass MD Primary Care Provider + Encounter Details Date Type Department Care Team (Late st Contact Info) Description 11/08/2004 Orders [place] [phone] Marty Nick MD [facility] [place] [address] Social History Tobacco Use Types Packs/Day Years [...] PM EST [place] [phone] Alta Caban APRN [facility] [place] [address] documented as of this encounter Procedures Procedure [...] is a Non-reportable exam Marty Nick MD [facility] FILM LIBRARY ORDERABLES documented in this encounter Visit Diagnoses Not on filedocumented in this encounter Care Teams Floor Installation Mechanic Relationship Specialty Start Date End Date Serafin Glass MD [address] [place] [address] PCP - General 01/25/10 07/06/16 documented as of this encounter
--- OUTSIDE RECORDS SUMMARY | 2024-01-28 12:55 | XMS_ITS | Encounter Summary ---
Author Organization [facility] [place] [address] Care Team Providers Care Deburring And Tooling Machine Operator Name Role Phone Yumiko Tavarez MD Primary Care Provider [phone] Reason for Referral * Diagnostic Test (Routine) - Closed Specialty Diagnoses / Procedures Referred By Warren dennis Referred To Contact Radiology Diagnoses Chorea Procedures MRI Brain wo Contrast Razia Mims MD [facility] [place] [address] [place] [address] Referral ID Status Reason Start Date Expiration Date V isits Requested Visits Authorized [id number] Closed Specialty Service Requested 11/07/2016 02/05/2017 1 [...] to suggest Sydenham's chorea. Terence Montgomery MD [address] [place] [id number] Prashant Roach MD [facility] [place] [address] Referral ID Status Reason Start Date Expiration Date V isits Requested Visits Authorized [id number] Closed Consult, Test & Treat Connection [facility] 07/07/2016 07/07/2017 1 1 Encounter Details Date Type Department Care Team (Late st Contact Info) Description 11/03/2016 3:30 PM EDT Office Visit Neurology at [facility] [place] [address] Razia Mims MD [facility] [place] [address] Chorea Social History Tobacco Use Types Packs/Day [...] MD - 11/03/2016 3:30 PM EDT [facility] Movement Disorders New Patient Evaluation Date of service 11/03/2016 Referring provider Terence Montgomery MD [address] [address] Cc: involuntary movements History of present illness [...] LAPAROSCOPIC ??? VERTEBROPLASTY Social History: Lives in [facility], she is retired from [employer] Family History Problem Relation Age of Onset [...] of MRI brain, HD genetic test (extensive marriage counselor given) and additional labs listed above. Plan: - labs including HD genetic testing - MRI brain - follow up in 2 months This was my initial visit with the patient. I spent 60 minutes with the patient and more than 30 minutes were spent discussion as reflected above Razia Mims MD [facility] Neurology-Movement Disorders documented in this encounter Plan of Treatment Upcoming Encounters Date Type Department Care Team (Late st Contact Info) Description 02/04/2024 1:00 PM EST Office [place] [phone] Alta Caban APRN [facility] [place] [address] documented as of this encounter Results * [...] 1:49 PM EDT) Lyme Antibody Neg Neg [facility] Blood specimen (specimen) 11/20/2016 1:49 PM EDT 11/21/2016 8:31 AM EDT Narrative Resulting Agency Comment Spec In Lab Razia Mims MD IMMUNOLOGY ORDERAB LES Performing Organization Address [facility]/ZIP Co de Phone Number [facility] [place] [address] * Ceruloplasmin (11/20/2016 1:49 PM EDT) Ceruloplasmin 37.5 16.0 - 45.0 mg/dL [facility] Blood specimen (specimen) 11/20/2016 1:49 PM EDT 11/20/2016 2:01 PM EDT Narrative Resulting Agency Comment Spec In Lab Razia Mims MD CHEMISTRY ORDERABL ES Performing Organization Address [facility] Co de Phone Number [facility] [place] [address] * Miscellaneous Lab request (11/20/2016 1:49 PM EDT) Label Request received in lab. [facility] Blood specimen (specimen) 11/20/2016 1:49 PM EDT 11/20/2016 2:01 PM EDT Narrative Resulting Agency Comment Spec In Lab Razia Mims MD LAB SEND OUT ORDER [place] Performing Organization Address [facility] Co de Phone Number [facility] [place] [address] * Streptococcal Antibody Panel (11/20/2016 1:49 PM EDT) Aso Titer (JULY) 44 0 - 530 IU/mL [facility] Comment: Test Performed by: [facility] [address] [place] [address] Dnase B Ab (JULY) <74 0 - 300 unit/mL [facility] Comment: Test Performed by: [facility] [address] [place] [address] Blood specimen (specimen) 11/20/2016 1:49 PM EDT 11/20/2016 4:01 PM EDT Narrative Resulting Agency Comment Spec In Lab Razia Mims MD LAB SEND OUT ORDER [place] Performing Organization Address [facility] Co de Phone Number [facility] [place] [address] * C4 Complement (11/20/2016 1:49 PM EDT) Complement C4 27 10 - 40 mg/dL [facility] Blood specimen (specimen) 11/20/2016 1:49 PM EDT 11/20/2016 2:01 PM EDT Narrative Resulting Agency Comment Spec In Lab Razia Mims MD CHEMISTRY ORDERABL ES Performing Organization Address [facility] Co de Phone Number [facility] [place] [address] * C3 Complement (11/20/2016 1:49 PM EDT) Complement C3 119 90 - 180 mg/dL [facility] Blood specimen (specimen) 11/20/2016 1:49 PM EDT 11/20/2016 2:01 PM EDT Narrative Resulting Agency Comment Spec In Lab Razia Mims MD CHEMISTRY ORDERABL ES Performing Organization Address [facility] Co de Phone Number [facility] [place] [address] * T4, free (11/20/2016 1:49 PM EDT) Free T4 1.04 0.93 - 1.70 ng/dL [facility] Blood specimen (specimen) 11/20/2016 1:49 PM EDT 11/20/2016 2:01 PM EDT Narrative Resulting Agency Comment Spec In Lab Razia Mims MD CHEMISTRY ORDERABL ES Performing Organization Address [facility]/ZIP Co de Phone Number [facility] [place] [address] * ARMEN (11/20/2016 1:49 PM EDT) ARMEN Neg Neg [facility] Blood specimen (specimen) 11/20/2016 1:49 PM EDT 11/21/2016 7:30 AM EDT Narrative Resulting Agency Comment Spec In Lab Razia Mims MD LAB SEND OUT ORDER [place] [facility] [place] [address] * Cardiolipin Antibody Screen (11/20/2016 1:49 PM [...] ORDERAB LES [facility] [place] [address] * (ABNORMAL) Comprehensive metabolic panel (non-fasting) (11/20/2016 [...] intervals supplied above were not validated at [facility]. Results from pediatric patients should be interpreted [...] LABORATORY Est Glomerular Filtration Rate 51(L) >=60 [facility] Comment: This estimated GFR (eGFR) [...] the following links into your internet browser. [email or web address] Blood specimen (specimen) 11/20/2016 1:49 PM EDT 11/20/2016 2:01 PM EDT Narrative Resulting Agency Comment Spec In Lab Razia Mims MD CHEMISTRY ORDERABL ES [facility] [place] [address] documented in this encounter Visit Diagnoses Diagnosis Chorea Other choreas Chorea Other choreas documented in this encounter Care Teams Deburring And Tooling Machine Operator Relationship Specialty Start Date End Date Yumiko Tavarez MD [address] [place] [address] PCP - General Family Medicine 07/07/16 documented as of this encounter
--- OUTSIDE RECORDS SUMMARY | 2024-01-28 12:55 | XMS_ITS | Encounter Summary ---
[place] [address] Care Team Providers Care Dry House Tender Name Role Phone Yumiko Tavarez MD Primary Care Provider [phone] Reason for Referral * Diagnostic Test (Routine) - Closed Specialty Diagnoses / Procedures Referred By Contac t Referred To Contact Radiology Diagnoses Tremors of nervous system Procedures NM VALENTIN Scan Razia Mims MD [facility] [place] [address] [place] [address] Referral ID Status Reason Start Date Expiration Date V isits Requested Visits Authorized [id number] Closed Specialty Service Requested 12/18/2016 12/18/2017 3 3 Encounter Details Date Type Department Care Team (Late st Contact Info) Description 12/18/2016 1:30 PM EDT [place] [phone] Razia Mims MD [facility] [place] [address] Tremors of nervous system; Chorea; [...] Mims MD - 12/18/2016 1:30 PM EDT [facility] Movement Disorders Follow Up Patient Evaluation Date of service 12/18/2016 Referring provider Yumiko Tavarez MD [address] [place] [address] Cc: involuntary movements History of present illness [...] LAPAROSCOPIC ??? VERTEBROPLASTY Social History: Lives in [place] [facility], she is retired from [employer] Family History Problem Relation Age of Onset [...] up in 1 month Razia Mims MD [facility] Neurology-Movement Disorders documented in this encounter Plan of Treatment Upcoming Encounters Date Type Department Care Team (Late st Contact Info) Description 02/04/2024 1:00 PM EST Office Visit [facility] at [facility] [place] [address] Alta Caban APRN [facility] [place] [address] documented as of this encounter Results * [...] movements documented in this encounter Care Teams Dry House Tender Relationship Specialty Start Date End Date Yumiko Tavarez MD [address] [place] [address] PCP - General Family Medicine 07/07/16 documented as of this encounter
--- OUTSIDE RECORDS SUMMARY | 2024-01-28 12:55 | XMS_ITS | Encounter Summary ---
Author Organization [facility] [place] [address] Care Team Providers Care Biogeographer Name Role Phone Unavailable Primary Care Provider Unavailabl e Encounter Details Date Type Department Care Team (Latest Contact Info) Description 06/12/2007 - 06/12/2007 11:59 PM EDT Hospital Encounter Radiology Library at [facility] [place] [place] [phone] Yumiko Tavarez MD [address] [place], [place] [address] Pain Discharge Disposition: Home Social History Tobacco [...] 1:00 PM EST [place] [phone] Alta Caban APRN [facility] [place] [address] documented as of this encounter Procedures Procedure Name Priority Date/Time Associated Diagnosis Comments FILM LIBRARY STORAGE ONLY MR SPINE Routine 06/12/2007 12:00 AM EDT Pain documented in this encounter Results * Film Library- Storage Only MR Spine (06/12/2007 12:00 AM EDT) Narrative [facility] - 07/13/2016 2:47 PM EDT This exam is for storage only and is auto-finalizing. Yumiko Tavarez MD [facility] FILM LIBRARY ORD ERABLES Performing Organization Address City/State/[facility] Co de Phone Number [facility] [place], [place] documented in this encounter Visit Diagnoses Diagnosis Pain Generalized pain documented in this encounter
--- OUTSIDE RECORDS SUMMARY | 2024-01-28 12:55 | XMS_ITS | Encounter Summary ---
Author Organization [facility] [place] [address] Care Team Providers Care Rail Switchman Name Role Phone Serafin Glass MD Primary Care Provider + Encounter Details Date Type Department Care Team (Late st Contact Info) Description 01/12/2011 Orders [place] [phone] Marty Nick MD [facility] [place] [address] Social History Tobacco Use Types Packs/Day Years [...] 1:00 PM EST [place] [phone] Alta Caban APRN [facility] [place] [address] documented as of this encounter Procedures Procedure [...] is a Non-reportable exam Marty Nick MD [facility] FILM LIBRARY ORDERABLES documented in this encounter Visit Diagnoses Not on filedocumented in this encounter Care Teams Rail Switchman Relationship Specialty Start Date End Date Serafin Glass MD [address] [place] [address] PCP - General 01/25/10 07/06/16 documented as of this encounter
--- OUTSIDE RECORDS SUMMARY | 2024-01-28 12:55 | XMS_ITS | Encounter Summary ---
Author Organization [facility] [place] [address] Care Team Providers Care Brine Maker Name Role Phone Serafin Glass MD Primary Care Provider + Encounter Details Date Type Department Care Team (Late st Contact Info) Description 01/23/2013 Orders [place] [phone] Marty Nick MD [facility] [place] [address] Social History Tobacco Use Types Packs/Day Years [...] 1:00 PM EST [place] [phone] Alta Caban APRN [facility] [place] [address] documented as of this encounter Procedures Procedure [...] is a Non-reportable exam Marty Nick MD [facility] FILM LIBRARY ORDERABLES documented in this encounter Visit Diagnoses Not on filedocumented in this encounter Care Teams Brine Maker Relationship Specialty Start Date End Date Serafin Glass MD [address] [place] [address] PCP - General 01/25/10 07/06/16 documented as of this encounter
--- OUTSIDE RECORDS SUMMARY | 2024-01-28 12:55 | XMS_ITS | Encounter Summary ---
Author Organization [facility] [place] [address] Care Team Providers Care Air Pollution Specialist Name Role Phone Serafin Glass MD Primary Care Provider + Encounter Details Date Type Department Care Team (Late st Contact Info) Description 07/23/2012 Orders [place] [phone] Marty Nick MD [facility] [place] [address] Social History Tobacco Use Types Packs/Day Years [...] EST Office [place] [phone] Alta Caban APRN [facility] [place] [address] documented as of this encounter Procedures Procedure [...] Non-reportable exam Marty Nick MD [facility] FILM LIBRARY ORDERABLES documented in this encounter Visit Diagnoses Not on filedocumented in this encounter Care Teams Air Pollution Specialist Relationship Specialty Start Date End Date Serafin Glass MD [address] [place] [address] PCP - General 01/25/10 07/06/16 documented as of this encounter
--- OUTSIDE RECORDS SUMMARY | 2024-01-28 12:55 | XMS_ITS | Encounter Summary ---
Author Organization [facility] [place] [address] Care Team Providers Care Geosciences Professor Name Role Phone Serafin Glass MD Primary Care Provider + Encounter Details Date Type Department Care Team (Late st Contact Info) Description 01/23/2013 Orders [place] [phone] Marty Nick MD [facility] [place] [address] Social History Tobacco Use Types Packs/Day Years [...] 1:00 PM EST [place] [phone] Alta Caban APRN [facility] [place] [address] documented as of this encounter Procedures Procedure [...] is a Non-reportable exam Marty Nick MD [facility] FILM LIBRARY ORDERABLES documented in this encounter Visit Diagnoses Not on filedocumented in this encounter Care Teams Geosciences Professor Relationship Specialty Start Date End Date Serafin Glass MD [address] [place] [address] PCP - General 01/25/10 07/06/16 documented as of this encounter
--- OUTSIDE RECORDS SUMMARY | 2024-01-28 12:55 | XMS_ITS | Encounter Summary ---
[place] [address] Care Team Providers Care Warp Splitter Name Role Phone Yumiko Tavarez MD Primary Care Provider [phone] Reason for Referral * Diagnostic Test (Routine) - Closed Specialty Diagnoses / Procedures Referred By Contac t Referred To Contact Radiology Diagnoses Tremors of nervous system Procedures NM IRMA Scan Razia Mims MD [facility] [place] [place] [address] [place] [address] Referral ID Status Reason Start Date Expiration Date V isits Requested Visits Authorized [id number] Closed Specialty Service Requested 12/18/2016 12/18/2017 3 3 Reason for Visit * Diagnostic Test (Routine) - Closed Specialty Diagnoses / Procedures Referred By Contac t Referred To Contact Radiology Diagnoses Tremors of nervous system Procedures NM IRMA Scan Razia Mims MD [facility] [place] [address] [place] [address] Referral ID Status Reason Start Date Expiration Date V isits Requested Visits Authorized [id number] Closed Specialty Service Requested 12/18/2016 12/18/2017 3 3 Encounter Details Date Type Department Care Team (Latest Contact Info) Description 01/10/2017 9:57 AM EST - 01/10/2017 2:31 PM EST Hospital Encounter [place] [address] Razia Mims MD [facility] [place] [address] Tremors of nervous system Discharge Disposition: Home [...] 1:00 PM EST [place] [phone] Alta Caban APRN [facility] [place] [address] documented as of this encounter Procedures Procedure [...] movements documented in this encounter Care Teams Warp Splitter Relationship Specialty Start Date End Date Yumiko Tavarez MD [address] [place] [address] PCP - General Family Medicine 07/07/16 documented as of this encounter
--- OUTSIDE RECORDS SUMMARY | 2024-01-28 12:55 | XMS_ITS | Encounter Summary ---
Author Organization [facility] [place] [address] Care Team Providers Care Returned Telephone Equipment Appraiser Name Role Phone Serafin Glass MD Primary Care Provider + Encounter Details Date Type Department Care Team (Late st Contact Info) Description 02/09/2011 Orders [place] [phone] Marty Nick MD [facility] [place] [address] Social History Tobacco Use Types Packs/Day Years [...] 1:00 PM EST [place] [phone] Alta Caban APRN [facility] [place] [address] documented as of this encounter Procedures Procedure [...] is a Non-reportable exam Marty Nick MD [facility] FILM LIBRARY ORDERABLES documented in this encounter Visit Diagnoses Not on filedocumented in this encounter Care Teams Returned Telephone Equipment Appraiser Relationship Specialty Start Date End Date Serafin Glass MD [address] [place] [address] PCP - General 01/25/10 07/06/16 documented as of this encounter
== END 2024-01-25 12:50 | disposition home or self-care (01) ==
LOC: NCHCN 12:49
PROVIDERS: PCP Family Medicine; Visit Provider Family Medicine
DX: Z11.51 Encounter for screening for human papillomavirus (HPV) (principal); Z01.419 Encounter for gynecological examination (general) (routine) without abnormal findings
CPT/HCPCS: 88142; 87624

== ENCOUNTER 2024-09-09 01:37 | Outpatient (CLI) | payer OTHER, SELFPAY ==
--- NOTE | 2024-09-09 | DI.MAMMO_ITS ---
Exam(s) MAMMO SCREENING EXAM: MAMMO SCREENING CLINICAL HISTORY: Screening Z12.31 TECHNIQUE: Mammograms were interpreted according to the usual protocol including computer analysis with CAD system, tomosynthesis and C-view imaging. COMPARISON: 2017 through 2022 FINDINGS: The breasts are composed of scattered fibroglandular densities, Breast Density category B. No suspicious masses or suspicious microcalcifications are seen. No skin thickening or abnormal axillary lymph nodes are seen. There has been no significant change from prior exams. IMPRESSION: BI-RADS Category 1, Negative mammogram Yearly screening mammography is recommended. Breast Density - Category B - There are scattered areas of fibroglandular density. Breast density Category C or D implies that the patient has dense breast tissue. Dense breast tissue can make it harder to find cancer on a mammogram. Dense breast tissue is also associated with an increased risk of breast cancer. This information about the result of the mammogram report was provided to the patient to raise their awareness. Use this report when you speak with the patient about their risks for breast cancer, which includes their family history. At that time, you may recommend additional screening tests (Ultrasound or MRI) as these tests may add significant information. A negative radiographic report should not delay biopsy if a dominant or clinically suspicious mass is present. Up to ten percent of cancers are not identified on mammography. A negative report may reinforce clinical impression. Adenosis and dense breasts may obscure an underlying neoplasm. False positive reports average 6 to 10%. Patient will receive a letter notifying them of these results.
== END 2024-09-09 01:57 ==
LOC: DI 01:37
PROVIDERS: PCP Family Medicine; Visit Provider Family Medicine
DX: Z12.31 Encounter for screening mammogram for malignant neoplasm of breast (principal); R92.323 Mammographic fibroglandular density, bilateral breasts
CPT/HCPCS: 77063; 77067

== ENCOUNTER 2024-10-28 15:25 | Outpatient (REF) | payer OTHER, SELFPAY ==
[2024-10-28 15:47] LABS: ESR 19 mm/hr (0-30)
[2024-10-28 15:57] LABS: Anion Gap 5.8 mmol/L (3-11); BUN 7 mg/dL (7-18); CO2 31.2 mmol/L (21.0-32.0); Calcium 9.1 mg/dL (8.5-10.1); Chloride 100 mmol/L (98-107); Estimated GFR 64.09 (mL/min/1.73m2); Glucose 84 mg/dL (74-106); Potassium 4.4 mmol/L (3.5-5.1); Sodium 137 mmol/L (136-145); Uric Acid 5.0 mg/dL (2.6-6.0)
== END 2024-10-28 15:26 | disposition home or self-care (01) ==
LOC: NCHCN 15:25
PROVIDERS: PCP Family Medicine; Visit Provider Family Medicine
DX: M79.674 Pain in right toe(s) (principal)
CPT/HCPCS: 80048; 85652; 84550

== ENCOUNTER 2024-12-15 15:46 | Emergency (ER) | payer OTHER, SELFPAY ==
[2024-12-15 15:57] VITALS: BP 138/85; PULSE 72; RESP 18; TEMP 36.2; O2SAT 99
--- NOTE | 2024-12-15 16:30 | W.ED.GENAD ---
Discharge Plan Disposition Patient Disposition: Home Discharge Details Clinical Impression: Acute back pain with sciatica Primary Care Provider: Yumiko Tavarez ED Provider: Maddison Dinh Home Meds and New Rx's Prescriptions: New cyclobenzaprine 10 mg tablet 10 mg PO TID PRNQty: 10 0RF prednisone 20 mg tablet 40 mg PO DAILY 4 Days Qty: 8 0RF No Action folic acid 1 MG tablet 1 mg PO DAILY Qty: 90 cyanocobalamin (vitamin B-12) [Vitamin B-12] 1,000 MCG tablet 1,500 mcg PO DAILY zolpidem [Ambien] 10 MG tablet 10 mg PO DAILY calcium carbonate 500 MG tablet 1,000 mg PO BID oxycodone-acetaminophen [Percocet] 1 EACH tablet 1 tab-cap PO Q6H PRN naloxone [Narcan] 4 MG spray,non-aerosol 4 mg NS PRN Qty: 2 pregabalin [Lyrica] 150 mg capsule 150 mg PO DAILY omeprazole 20 mg capsule,delayed release(DR/EC) 20 mg PO DAILY cholecalciferol (vitamin D3) 1,250 mcg (50,000 unit) capsule 1,250 mcg PO QWEEK pregabalin [Lyrica] 50 mg capsule 50 mg PO DAILY Rx Instructions: take with a 150mg Lyrica every morning alprazolam 0.5 mg tablet 0.5 mg PO PRN PRN Patient Comments: TAKE 1 TABLET BY MOUTH ONCE DAILY NEEDED Discharge Instructions Additional Instructions: Please follow-up with your primary care provider on Sunday as scheduled. I recommend that you discuss physical therapy and outpatient MRI You are being prescribed a short dose of prednisone to help with sciatic pain. You may use tylenol 650 mg every 8 hours as needed for pain control. I also recommend that you use the cyclobenzaprine as needed for muscle spasms. Please note that this may make you sleepy, so avoid using before driving or doing any potentially dangerous activities until you see how it affects you. Lidocaine patches, heat/ice (not to be used over lidocaine patches), and gentle massage/stretching may also be helpful. Return to emergency care if you develop fevers associated with back pain, numbness in your underwear area, change in bowel/bladder function (inability to empty bladder, loss of bladder/bowel control), leg weakness or numbness, or if you are very worried and need to be rechecked again immediately. Stand Alone Forms: Work Release Referrals: Yumiko Tavarez [Primary Care Provider, Medicine] Discharge Data Discharge Date/Time-TO BE ENTERED AT DEPARTURE: 12/15/24 16:47 HPI General Date/Time Provider Initiated Documentation: 12/15/24 15:49. HPI Narrative: Miguelina is a 59-year-old female presents to the emergency department today for chronic lower back pain with sciatica down the right leg. On 10/18/2024, fell asleep on toilet and developed sciatic pain. Diagnosed with sciatica on 10/24/2024 and given exercises, but pain persists, especially when driving and walking. She reports that the pain along the lateral aspect of her leg had improved with exercises, but she has developed worsening pain over the last week. Pain radiates down the right leg to her foot, sometimes sharp or prickly, occasionally feels like insect crawling on calf. Burning sensation in thigh, sensitive to touch. Denies fever/chills, trauma, new back pain, numbness in the foot, color change to the leg, saddle anesthesia/paresthesia. She has neurological issues resulting in urinary symptoms, but denies recent changes to her urinary symptoms. Seeking MRI, but insurance requires 6 weeks of physical therapy first. Appointment with healthcare provider scheduled for Sunday. Currently taking oxycodone, lidocaine patches, muscle rubs, and Tylenol. Avoids Advil due to chronic stage 3 kidney disease. Has not tried Flexeril or Robaxin. History of methocarbamol use for muscle cramps, ineffective. Requests work note due to pain. History of osteoporosis with fractures at T4 and T5 with vertebroplasty. Attending physical therapy for back and balance issues. Related Data Home Medications ?Medication ?Instructions ?Recorded ?Confirmed folic acid 1 mg tablet 1 mg PO DAILY #90 tab-caps 09/01/15 12/15/24 cyanocobalamin (vitamin B-12) 1,500 mcg PO DAILY 11/28/16 12/15/24 1,000 mcg tablet (Vitamin B-12) zolpidem 10 mg tablet (Ambien) 10 mg PO DAILY 11/28/16 12/15/24 calcium carbonate 1,000 mg PO BID 05/18/17 12/15/24 naloxone 4 mg/actuation nasal 4 mg NS PRN #2 sprays 05/18/17 12/15/24 spray (Narcan) oxycodone-acetaminophen 10 mg-325 1 tab-cap PO Q6H PRN 05/18/17 12/15/24 mg tablet (Percocet) cholecalciferol (vitamin D3) 1,250 1,250 mcg PO QWEEK 03/18/21 12/15/24 mcg (50,000 unit) capsule omeprazole 20 mg capsule,delayed 20 mg PO DAILY 03/18/21 12/15/24 release pregabalin 150 mg capsule (Lyrica) 150 mg PO DAILY 03/18/21 12/15/24 pregabalin 50 mg capsule (Lyrica) 50 mg PO DAILY 07/13/22 12/15/24 alprazolam 0.5 mg tablet 0.5 mg PO PRN PRN 07/25/22 12/15/24 cyclobenzaprine 10 mg tablet 10 mg PO TID PRN #10 tabs 12/15/24 prednisone 20 mg tablet 40 mg (2 x 20 mg) PO DAILY 4 days 12/15/24 #8 tabs Previous Rx's ?Medication ?Instructions ?Recorded cyclobenzaprine 10 mg tablet 10 mg PO TID PRN #10 tabs 12/15/24 prednisone 20 mg tablet 40 mg (2 x 20 mg) PO DAILY 4 days 12/15/24 #8 tabs Allergies Allergy/AdvReac Type Severity Reaction Status Date / Time Antihistamines - Alkylamine Allergy Intermediate antihistamines Verified 12/15/24 15:59 unspecified procaine HCl (From Novocain) Allergy Intermediate Other (See Verified 12/15/24 15:59 Comment) gabapentin AdvReac Intermediate drowsiness Verified 12/15/24 15:59 mirtazapine AdvReac Unknown Heart Verified 12/15/24 15:59 racing, jittery General Stated Complaint: Orthopedic MAYELA: 4 Exam Narrative Exam Narrative: General Appearance: Normal. Patient alert and oriented, no acute distress Vital signs: Within normal limits. Back, Musculoskeletal: Lower back tenderness, no point tenderness/step-off/deformity to thoracic or lumbar spine. Diffuse paraspinal tenderness. Extremities: No color change in lower extremities. Skin: Warm and dry, no rash. Neurological: Sensation intact bilaterally. Strength 5/5 in bilateral lower extremities. Reflexes normal. Psychiatric: Normal. Course Vital Signs Vital signs: Vital Signs Temperature 36.2 C L 12/15/24 15:57 Pulse 72 12/15/24 15:57 Respiratory Rate 18 12/15/24 15:57 Blood Pressure 138/85 12/15/24 15:57 Pulse Oximetry 99 12/15/24 15:57 Temperature 36.2 C L 12/15/24 15:57 Temperature Source Temporal Artery Scan 12/15/24 15:57 Pulse 72 12/15/24 15:57 Respiratory Rate 18 12/15/24 15:57 Blood Pressure 138/85 12/15/24 15:57 Pulse Oximetry 99 12/15/24 15:57 Pain Level 9 12/15/24 15:57 Medical Decision Making Initial Assessment: 59-year-old female with sciatica. Differential Diagnosis includes but is not limited to: Herniated disc, sciatica, muscle spasm. No red flags concerning for spinal epidural abscess, spinal cord compression syndromes, vascular etiology of pain, or neurovascular compromise. ED Course: - Physical examination performed. - Lidocaine patch applied to back. -Offered x-ray for evaluation to rule out fracture, patient declined - First dose of prednisone administered. Final Assessment: Sciatica with inflammation, possibly due to herniated disc. Prednisone and Flexeril prescribed. Lidocaine patch applied for pain relief. Disposition: Follow-up with Dr. Tavarez on 12/17/2024. Return to ED if new fevers, chills, changes in bowel or bladder function, inability to walk due to leg weakness, swelling, or color change in leg. Patient Education: Symptoms management, medication instructions, signs to watch for. Patient consented to the use of ALICE PFSH All Active Problems (Updated 12/15/24 @ 16:32 by Maddison Khan) Acute back pain with sciatica (Acute) Difficulty voiding (Acute) Constipation (Acute) Screening for colon cancer (Acute) Medical History Acne Anxiety Ataxia Chorea Chronic fatigue Chronic kidney disease, stage III (moderate) Chronic low back pain Depression Dysphagia Epilepsy Flank pain Folate deficiency anemia Gallstones GERD (gastroesophageal reflux disease) HPV test positive 2018. Nl Pap/+ HPV 2019.ASCUS/+HPV (18) 03/12/2020. Colpo bx: Hyperlipidemia Hypothyroidism (acquired) Insomnia Macrocytosis Movement disorder Nausea Neuropathic pain Osteoporosis Primary Parkinsonism Syncopal episodes Tobacco dependence Vitamin D deficiency Surgical History Cholecystectomy (03/08/16) laparoscopic Colonoscopy - MAC Hx of colposcopy with cervical biopsy 03/12/2020 vertebroplasty Family History Father Personal history of malignant neoplasm lung ca Social History Smoking/Tobacco Use Status: Current every day Smoking risk assessment performed?: Yes Alcohol Intake: current Alcohol Intake frequency: holidays/special occasions only Drug use: Current Sobriety Household members: spouse current occupation: Retired [employer]. Do you feel safe at home: No Do you feel safe in your relationship?: Yes Female Reproductive History Menstrual Menopause type: natural History History 4 Para Hx # Term Pregnancies 2 Multiple births Hx # Pregnancies Ectopic pregnancies AB induced Hx Number of Living Children AB spontaneous
[2024-12-15] MEDS: Cyclobenzaprine 10 MG TAB, 3 TABS/BTL PO (16:46)
[2024-12-15] MEDS: predniSONE 20 MG TAB 40 MG PO (16:46)
[2024-12-15] MEDS: Lidocaine 5% Patch 1 PATCH TP (16:46)
== END 2024-12-15 16:47 | disposition home or self-care (01) ==
PROVIDERS: Emergency Provider Nurse Practitioner Family; PCP Family Medicine
DX: M54.41 Lumbago with sciatica, right side (principal)
CPT/HCPCS: 99283; J7512

== ENCOUNTER → 2025-01-26 02:08 | Outpatient (CLI) | payer OTHER, SELFPAY ==
--- NOTE | 2025-01-26 | DI.MRI_ITS ---
Exam(s) MR LUMBAR SPINE WO EXAM: MR LUMBAR SPINE WO CLINICAL HISTORY: LT SIDED SCIATICA,M54.32. TECHNIQUE: Multiplanar multisequence MRI of the Lumbar spine was performed. COMPARISON: MR MRI - LUMBAR SPINE WO CONTRAST from 10/22/2015 MR MRI - LUMBAR SPINE WO CONTRAST from 06/05/2016 CR XR DEXA BONE DENSITY W/WO HOMERO from 07/02/2023 FINDINGS: Bones: The last intervertebral disc space is designated the L5/S1 level for the numbering purpose of this examination. The vertebral body heights are well maintained. Alignment is satisfactory. Prior vertebral plasty is seen at T11, T12 and L1. There is stable mild compression of T11, T12 and L1. Degenerative endplate signal changes are seen in the lumbar spine particularly at T12-L1, L1- L2 and L5-S1. Cord: It is of normal size and signal intensity. T12-L1: No disc herniations or bulges are present. No central spinal canal or neural foraminal stenosis. L1-2: No disc herniations or bulges are present. No central spinal canal or neural foraminal stenosis. L2-3: There is a mild diffuse disc bulge. No central spinal canal or neural foraminal stenosis. L3-4: No disc herniations or bulges are present. No central spinal canal or neural foraminal stenosis. L4-5: There is a mild diffuse disc bulge. No central spinal canal or neural foraminal stenosis. L5-S1: There is a diffuse disc bulge at this level. There are mild degenerative changes of the facets. No central spinal canal or neural foraminal stenosis. Soft tissues: The visualized SI joints and sacrum are well maintained. The paraspinal soft tissues are unremarkable. IMPRESSION: 1. No evidence of central spinal canal or neural foraminal stenosis. 2. Old compression deformities and vertebral plasty at T11, T12 and L1. 3. No evidence of an acute fracture/compression in the lumbar spine. DATA REPOSITORY:
== END ==
LOC: DI 02:08
PROVIDERS: PCP Family Medicine; Visit Provider Family Medicine
DX: M54.32 Sciatica, left side (principal); Z87.81 Personal history of (healed) traumatic fracture
CPT/HCPCS: 72148